=== PATIENT | male | born 1950 | race Two or more races ===

== ENCOUNTER 2016-04-14 13:12 | Inpatient (IN) | payer MEDICARE, MEDICAID ==
[~2016-04-14] VITALS: Ht 162.6 cm; Wt 65.8 kg
[2016-04-14] MEDS ORDERED: Albuterol ud Inhalation HHN ONE (13:30)
[2016-04-14] MEDS ORDERED: Ipratropium 0.02% Inh Soln 2.5ml UD HHN ONE (13:30)
[2016-04-14] MEDS ORDERED: Piperacillin/Tazobactam 4.5 GM in NS 110 ML IV ONE (13:30)
[2016-04-14] MEDS ORDERED: Vancomycin 1 GM in NS 275 ML IV ONE (13:30)
[2016-04-14] MEDS ORDERED: Vancomycin 1gm inj IVPB ONE (14:28)
[2016-04-14] MEDS ORDERED: Tubing IV Cassette IV ONE (14:29)
[2016-04-14] MEDS ORDERED: NS 110 ML ONE (14:29)
[2016-04-14] MEDS ORDERED: Zosyn 4.5gm inj ONE (14:29)
[2016-04-14] MEDS ORDERED: NS 275 ML ONE (14:29)
[2016-04-14 14:36] LABS: APPEARANCE,URINE CLEAR; KETONES,URINE NEGATIVE (NEGATIVE); LEUKOCYTE ESTERASE ,URINE 1+ (NEGATIVE); NITRITE,URINE NEGATIVE (NEGATIVE); PH,URINE 5 (4.5-8.0); PROTEIN,URINE 2+ (NEGATIVE); UROBILINOGEN,URINE NORMAL MG/DL (0.0-1.0)
[2016-04-14 14:40] LABS: SQUAMOUS EPITHELIAL CELL,UR FEW /LPF (NONE/OCC); WBC,URINE 0-2 /HPF (0 - 0)
[2016-04-14 14:42] LABS: INR 1.1 (0.9-1.1); MEAN CORPUSCULAR HEMOGLOBIN 30.9 PG (27.0-31.0); MEAN CORPUSCULAR VOLUME 100 FL (80-99); MEAN PLATELET VOLUME 10.1 FL (6.5-10.1); PLATELET COUNT 239 K/UL (150-450); PROTHROMBIN TIME 10.8 SEC (9.30-11.50); RED BLOOD COUNT 5.14 M/UL (4.70-6.10); RED CELL DISTRIBUTION WIDTH 14.7 % (11.6-14.8); WHITE BLOOD COUNT 18.5 K/UL (4.8-10.8)
[2016-04-14 14:46] LABS: TROPONIN I < 0.30 ng/mL (<=0.30)
[2016-04-14 14:49] LABS: ALANINE AMINOTRANSFERASE 50 U/L (3-41); ALBUMIN/GLOBULIN RATIO 0.7 (1.0-2.7); ASPARTATE AMINO TRANSFERASE 33 U/L (5-40); CALCIUM 9.9 mg/dL (8.6-10.2); CARBON DIOXIDE 25 mEQ/L (20-30); CHLORIDE 118 mEQ/L (98-107); CREATININE 1.7 mg/dL (0.7-1.2); GLOMERULAR FILTRATION RATE 40.7 mL/min (>60); HEMOLYSIS 20; POTASSIUM 3.9 mEQ/L (3.4-4.9)
[2016-04-14 14:50] LABS: REFLEX LACTIC ACID YES OR NO YES
[2016-04-14 15:05] LABS: ANION GAP 17 (5-15); SODIUM 160 mEQ/L (135-145)
[2016-04-14] MEDS ORDERED: ASPIRIN81 MG GT (15:14)
[2016-04-14] MEDS ORDERED: MULTIVITAMINS1 EAC2 GT (15:14)
[2016-04-14] MEDS ORDERED: MAGNESIUM OXID400 M1 GT (15:14)
[2016-04-14] MEDS ORDERED: ARICEPT10 MG GT (15:14)
[2016-04-14] MEDS ORDERED: PANTOPRAZOLE SO40 MG GT (15:14)
[2016-04-14] MEDS ORDERED: Cefepime HCl 1 GM in D5W 55 ML IVPB ONE (15:15)
--- NOTE | 2016-04-14 15:21 | Emergency Room Report ---
History of Present Illness General Chief Complaint: Altered Level of Consciousness Source: Medical Record, EMS Present Illness HPI The patient is sent in for altered level of consciousness increased blood glucose and decreased oxygen saturation. EMS transported patient with O2 sat 91% and glucose "high". He is in a nursing home facility. S/P CVA DM HTN No further history is available. Allergies: Coded Allergies: No Known Allergies (Unverified , 04/14/16) Patient History Limited by: medical condition Past Medical History: see triage record Social History Narrative SNF Reviewed Nursing Documentation: PMH: Agreed, PSxH: Agreed Nursing Documentation-PMH Past Medical History: No History, Except For Hx Cardiac Problems: Yes Hx Hypertension: Yes Hx Diabetes: Yes Hx Gastrointestinal Problems: Yes - gtube Hx Cerebrovascular Accident: Yes Review of Systems All Other Systems: limited Physical Exam Vital Signs Date Time Temp Pulse Resp B/P Pulse Ox O2 Delivery O2 Flow Rate FiO2 04/14/16 13:14 97.7 137 40 141/97 94 Room Air 04/14/16 14:00 2.0 Sp02 EP Interpretation: reviewed, abnormal - low as interpreted by me (on O2) General Appearance: Chronically Ill, Stupor - eyes open Head: normocephalic, atraumatic, other - facial assymmetry - R weakness Eyes: bilateral eye PERRL ENT: dry mucus membranes Neck: no meningismus Respiratory: rhonchi - R Cardiovascular #1: no murmur, tachycardia Cardiovascular #2: 2+ radial (R) Gastrointestinal: non tender, non-distended, abnormal bowel sounds - decreased , other - G tube Neurologic: responsive, sensory intact, no Babinski, aphasia - but later nods "yes and no" on occasion, motor weakness Psychiatric: depressed affect - lethargic Skin: other - plethoric Procedures Critical Care Time Critical Care Time Total time: 30 min bedside evaluation and treatment excludes procedures (EKG). Reason for critical care: hyperglycemia, sepsis, hypernatremia Possible complications: hypotension, hypertension, AR, shock, arrhythmias, metabolic acidosis, end organ damage, respiratory failure. Interventions: insulin, fluid bolus, antibiotics, electrolyte assessment and treatment Course: Pt presented with critical high glucose and decreased O2 sats. Immediate fluid resuscitation begun. Breathing treatments also given. Labs with hyperglycemia and critical hypernatremia. Fluids adjusted. Insulin given. Reassessed and more responsive. Glucose still high but improving. Antibiotics broadened. Admitted [facility]. Consultations: nursing staff, EMS Performed by: Dr. Dorman Tolerated well condition = serious Medical Decision Making Diagnostic Impression: Primary Impression: Sepsis Qualified Codes: A41.9 - Sepsis, unspecified organism Additional Impressions: Hyperglycemia Acute hypernatremia Pneumonia Qualified Codes: J18.9 - Pneumonia, unspecified organism Hyperosmolar coma Renal insufficiency Aphasia, post-stroke ER Course Patient presents with critical high glucose, AMS and low O2 sat. Ddx: sepsis, pneumonia, AMI, dehydration, DKA, hyperosmolar coma amongst others. Emergent evaluation undertaken with labs, EKG, CXR, UA. Treatment with albuterol and fluids initiated. Await lytes to determine if DKA. Patient appears dry. CXR = RML infiltrate. Antibiotics begun. Not acidotic. Insulin given. Sodium critically high (particularly in face of high glucose). 1/2 NS begun in addition to NS. Patient improving mentation. Repeat accucheck still "high". Repeat accucheck 400s. Patient admitted to [facility] Dr. Salter. Laboratory Tests Test 04/14/16 13:40 04/14/16 17:40 White Blood Count 18.5 K/UL (4.8-10.8) H Red Blood Count 5.14 M/UL (4.70-6.10) Hemoglobin 15.9 G/DL (14.2-18.0) Hematocrit 51.3 % (42.0-52.0) Mean Corpuscular Volume 100 FL (80-99) H Mean Corpuscular Hemoglobin 30.9 PG (27.0-31.0) Mean Corpuscular Hemoglobin Concent 31.0 G/DL (32.0-36.0) L Red Cell Distribution Width 14.7 % (11.6-14.8) Platelet Count 239 K/UL (150-450) Mean Platelet Volume 10.1 FL (6.5-10.1) Neutrophils (%) (Auto) % (45.0-75.0) Lymphocytes (%) (Auto) % (20.0-45.0) Monocytes (%) (Auto) % (1.0-10.0) Eosinophils (%) (Auto) % (0.0-3.0) Basophils (%) (Auto) % (0.0-2.0) Differential Total Cells Counted 100 Neutrophils % (Manual) 75 % (45-75) Lymphocytes % (Manual) 13 % (20-45) L Monocytes % (Manual) 6 % (1-10) Eosinophils % (Manual) 0 % (0-3) Basophils % (Manual) 0 % (0-2) Band Neutrophils 6 % (0-8) Platelet Estimate Adequate Platelet Morphology Giant Platelets Occasional Polychromasia 1+ Anisocytosis 1+ Macrocytosis 1+ Prothrombin Time 10.8 SEC (9.30-11.50) Prothrombin Time INR 1.1 (0.9-1.1) PTT 21 SEC (23-33) L Urine Color Pale yellow Urine Appearance Clear Urine pH 5 (4.5-8.0) Urine Specific [place] 1.015 (1.005-1.035) Urine Protein 2+ (NEGATIVE) H Urine Glucose (UA) 4+ (NEGATIVE) H Urine Ketones Negative (NEGATIVE) Urine Occult Blood 4+ (NEGATIVE) H Urine Nitrite Negative (NEGATIVE) Urine Bilirubin Negative (NEGATIVE) Urine Urobilinogen Normal MG/DL (0.0-1.0) Urine Leukocyte Esterase 1+ (NEGATIVE) H Urine RBC 5-10 /HPF (0 - 0) H Urine WBC 0-2 /HPF (0 - 0) Urine Squamous Epithelial Cells Few /LPF (NONE/OCC) Urine Bacteria None /HPF (NONE) Sodium Level 160 mEQ/L (135-145) H 168 mEQ/L (135-145) *H Potassium Level 3.9 mEQ/L (3.4-4.9) 3.4 mEQ/L (3.4-4.9) Chloride Level 118 mEQ/L (98-107) H 128 mEQ/L (98-107) H Carbon Dioxide Level 25 mEQ/L (20-30) 23 mEQ/L (20-30) Anion Gap 17 (5-15) H 17 (5-15) H Blood Urea Nitrogen 50 mg/dL (7-23) H 41 mg/dL (7-23) H Creatinine 1.7 mg/dL (0.7-1.2) H 1.5 mg/dL (0.7-1.2) H Estimate Glomerular Filtration Rate 40.7 mL/min (>60) 47.0 mL/min (>60) Glucose Level > 745 mg/dL (74-106) *H 454 mg/dL (74-106) #H Lactic Acid Level 3.00 mmol/L (0.66-2.22) H 4.70 mmol/L (0.66-2.22) H Calcium Level 9.9 mg/dL (8.6-10.2) 8.5 mg/dL (8.6-10.2) L Total Bilirubin 0.4 mg/dL (0.0-1.2) 0.3 mg/dL (0.0-1.2) Aspartate Amino Transferase (AST) 33 U/L (5-40) 21 U/L (5-40) Alanine Aminotransferase (ALT) 50 U/L (3-41) H 40 U/L (3-41) Alkaline Phosphatase 190 U/L (40-129) H 144 U/L (40-129) H Total Creatine Kinase 79 U/L (38-174) Troponin I < 0.30 ng/mL (<=0.30) Pro-B-Type Natriuretic Peptide 65 pg/mL (0-125) Total Protein 9.0 g/dL (6.6-8.7) H 7.3 g/dL (6.6-8.7) Albumin 3.8 g/dL (3.5-5.2) 3.1 g/dL (3.5-5.2) L Globulin 5.2 g/dL 4.2 g/dL Albumin/Globulin Ratio 0.7 (1.0-2.7) L 0.7 (1.0-2.7) L Microbiology Date/Time Source Procedure Growth Status 04/14/16 13:40 Nasal Nares Influenza Types A,B Antigen (NILS) - Final Complete EKG Diagnostic Results Rate: tachycardiac ST Segments: no acute changes Rhythm Strip Diag. Results Rhythm: no PVC's, no ectopy, other - ST Chest X-Ray Diagnostic Results EP Interpretation: Yes Findings: no effusion, no pneumothorax, other - RML infiltrate Number of Views: 1 Last Vital Signs Date Time Temp Pulse Resp B/P Pulse Ox O2 Delivery O2 Flow Rate FiO2 04/14/16 22:04 99.6 115 26 123/69 96 Nasal Cannula 2.0 Status: improved Disposition: ADMITTED INPATIENT Condition: Critical Referrals: NON PHYSICIAN (PCP) Rigo Dorman M.D. Apr 14, 2016 15:21
[2016-04-14 15:50] LABS: ANISOCYTOSIS 1+; BAND NEUTROPHILS % (MANUAL) 6 % (0-8); BASOPHILS % (MANUAL) 0 % (0-2); EOSINOPHILS % (MANUAL) 0 % (0-3); LYMPHOCYTES % (MANUAL) 13 % (20-45); MACROCYTES 1+; NEUTROPHILS % (MANUAL) 75 % (45-75); PLATELET ESTIMATE ADEQUATE; POLYCHROMASIA 1+; TOTAL CELLS COUNTED 100
[2016-04-14] MEDS ORDERED: Vancomycin 1 GM in D5W 275 ML IVPB ONE (16:00)
[2016-04-14] MEDS ORDERED: metroNIDAZOLE 500mg 100 ML IVPB ONE (16:00)
[2016-04-14 16:24] VITALS: BP 122/84
[2016-04-14] MEDS ORDERED: Acetaminophen 650mg/20.3ml GT ONE (17:30)
[2016-04-14] MEDS ORDERED: Cefepime 1gm vial ONE (17:36)
[2016-04-14 18:23] VITALS: BP 112/71
[2016-04-14 18:28] LABS: ALBUMIN/GLOBULIN RATIO 0.7 (1.0-2.7); CALCIUM 8.5 mg/dL (8.6-10.2); CREATININE 1.5 mg/dL (0.7-1.2); POTASSIUM 3.4 mEQ/L (3.4-4.9); TOTAL PROTEIN 7.3 g/dL (6.6-8.7)
[2016-04-14] MEDS ORDERED: Miralax 17gm pkt ORAL PRN (18:30)
[2016-04-14] MEDS ORDERED: Ketorolac 30mg Inj IV PRN (18:30)
[2016-04-14] MEDS ORDERED: Mylanta II UD 30ml ORAL PRN (18:30)
[2016-04-14] MEDS ORDERED: Nitroglycerin Subl 0.4mg tab (Bottle Of 25) SL PRN (18:30)
[2016-04-14] MEDS ORDERED: Morphine Sulfate 2mg/ml Inj IVP PRN (18:30)
[2016-04-14] MEDS ORDERED: DuoNeb 0.5-3(2.5)mg/3ml neb HHN PRN (18:30)
[2016-04-14 19:48] VITALS: BP 104/69
[2016-04-14 22:04] VITALS: BP 123/69
[2016-04-14 23:20] VITALS: BP 115/75
[2016-04-15] VITALS (9 sets, daily range): BP systolic 105–139; BP diastolic 65–83
[2016-04-15] MEDS: NovoLOG Insulin Flexpen SUBQ SCH ×5 (02:02→21:59)
[2016-04-15] MEDS: Heparin 5000 units/ml inj SUBQ SCH ×3 (02:46→21:57)
[2016-04-15] MEDS: Piperacillin/Tazobactam 3.375 GM in NS 110 ML IVPB SCH ×3 (02:53→19:23)
[2016-04-15] MEDS ORDERED: NS 110 ML ONE (02:55)
[2016-04-15] MEDS ORDERED: Zosyn 3.375gm inj ONE (02:55)
[2016-04-15] MEDS ORDERED: Tubing IV Cassette IV ONE ×2 (02:55→04:55)
[2016-04-15 06:11] LABS: MEAN CORPUSCULAR HEMOGLOBIN 30.6 PG (27.0-31.0); MEAN CORPUSCULAR HGB CONC 31.4 G/DL (32.0-36.0); MEAN CORPUSCULAR VOLUME 98 FL (80-99); MEAN PLATELET VOLUME 11.1 FL (6.5-10.1); PLATELET COUNT 150 K/UL (150-450); RED BLOOD COUNT 3.67 M/UL (4.70-6.10); RED CELL DISTRIBUTION WIDTH 15.1 % (11.6-14.8); WHITE BLOOD COUNT 18.9 K/UL (4.8-10.8)
[2016-04-15 06:30] LABS: HEMOGLOBIN A1C 9.1 % (< 6.0)
[2016-04-15 06:34] LABS: ALBUMIN/GLOBULIN RATIO 0.7 (1.0-2.7); CALCIUM 7.8 mg/dL (8.6-10.2); CREATININE 1.3 mg/dL (0.7-1.2); GLOMERULAR FILTRATION RATE 55.4 mL/min (>60); POTASSIUM 3.3 mEQ/L (3.4-4.9); TOTAL PROTEIN 6.4 g/dL (6.6-8.7)
[2016-04-15 06:44] LABS: THYROID STIMULATING HORMONE 0.83 uIU/mL (0.300-4.500)
[2016-04-15 08:33] LABS: ANISOCYTOSIS 1+; BAND NEUTROPHILS % (MANUAL) 3 % (0-8); BASOPHILS % (MANUAL) 0 % (0-2); EOSINOPHILS % (MANUAL) 0 % (0-3); HYPOCHROMASIA 1+; LYMPHOCYTES % (MANUAL) 13 % (20-45); NEUTROPHILS % (MANUAL) 77 % (45-75); PLATELET ESTIMATE ADEQUATE; PLATELET MORPHOLOGY NORMAL; TOTAL CELLS COUNTED 100
--- NOTE | 2016-04-15 08:54 | History and Physical ---
History of Present Illness General Date patient seen: Apr 15, 2016 Reason for Hospitalization: Altered Level of Consciousness Present Illness HPI 65 year old male with hx of CVA, DM, HTN sent in from his [facility] for altered level of consciousness, increased blood glucose and decreased oxygen saturation and fevers EMS transported patient with O2 sat 91% and glucose "high". Patient seems obtunded, its unclear how his baseline is. He is admitted to [facility] for sepsis and uncontrolled DM and possibly hyperosmolar coma. Allergies: Coded Allergies: No Known Allergies (Unverified , 04/14/16) Medication History Scheduled Aspirin* (Aspirin*), 81 MG GT DAILY, (Reported) Donepezil Hcl* (Aricept*), 10 MG GT DAILY, (Reported) Magnesium Oxide (Magnesium Oxide), 400 MG GT DAILY, (Reported) Multivitamins* (Multivitamins*), 1 TAB GT DAILY, (Reported) Pantoprazole* (Pantoprazole*), 40 MG GT DAILY, (Reported) Patient History Healthcare decision maker Resuscitation status Advanced Directive on File Past Medical/Surgical History Past Medical/Surgical History: (1) G-tube site cellulitis (2) Aphasia, post-stroke (3) Pneumonia Social History Social History: (1) [facility] resident Physical Exam General Appearance: WD/WN Lines, tubes and drains: peripheral, central line HEENT: normocephalic, atraumatic Neck: non-tender, normal alignment Respiratory/Chest: chest wall non-tender, normal breath sounds Breasts: no masses Cardiovascular/Chest: normal peripheral pulses Abdomen: normal bowel sounds, non tender Genitourinary/Rectal: normal genital exam, normal rectal exam Skin Exam: normal pigmentation 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 Last 24 Hour Vital Signs Date Time Temp Pulse Resp B/P Pulse Ox O2 Delivery O2 Flow Rate FiO2 04/15/16 08:00 99.1 109 26 108/76 97 Nasal Cannula 4.0 04/15/16 07:13 102.7 116 25 105/65 94 Nasal Cannula 4.0 04/15/16 05:52 102.7 04/15/16 05:44 102.7 116 25 105/65 94 Nasal Cannula 4.0 04/15/16 04:36 102.4 116 25 128/72 94 Nasal Cannula 4.0 04/15/16 03:07 101.4 114 25 125/83 94 Nasal Cannula 4.0 04/15/16 01:53 99.6 108 18 122/71 95 Nasal Cannula 4.0 04/15/16 00:40 101.5 112 27 114/72 95 Nasal Cannula 3.0 04/14/16 23:20 101.4 112 26 115/75 95 Nasal Cannula 3.0 04/14/16 22:04 99.6 115 26 123/69 96 Nasal Cannula 2.0 04/14/16 19:48 99.6 115 25 104/69 96 Nasal Cannula 2.0 04/14/16 18:23 100.0 119 26 112/71 97 Nasal Cannula 2.0 04/14/16 17:54 100.4 04/14/16 16:24 100.4 127 28 122/84 98 Nasal Cannula 2.0 04/14/16 14:00 100.7 119 20 100 Nasal Cannula 2.0 04/14/16 13:14 97.7 137 40 141/97 94 Room Air Intake and Output 04/14/16 04/15/16 19:00 07:00 Intake Total 0 ml 1110 ml Output Total 645 ml 1515 ml Balance -645 ml -405 ml Intake Oral 0 ml IV Total 1110 ml Output Urine Total 645 ml 1515 ml # Bowel Movements 1 Laboratory Tests Test 04/14/16 13:40 04/14/16 17:40 04/15/16 05:40 White Blood Count 18.5 K/UL (4.8-10.8) H 18.9 K/UL (4.8-10.8) H Red Blood Count 5.14 M/UL (4.70-6.10) 3.67 M/UL (4.70-6.10) L Hemoglobin 15.9 G/DL (14.2-18.0) 11.3 G/DL (14.2-18.0) L Hematocrit 51.3 % (42.0-52.0) 35.9 % (42.0-52.0) #L Mean Corpuscular Volume 100 FL (80-99) H 98 FL (80-99) Mean Corpuscular Hemoglobin 30.9 PG (27.0-31.0) 30.6 PG (27.0-31.0) Mean Corpuscular Hemoglobin Concent 31.0 G/DL (32.0-36.0) L 31.4 G/DL (32.0-36.0) L Red Cell Distribution Width 14.7 % (11.6-14.8) 15.1 % (11.6-14.8) H Platelet Count 239 K/UL (150-450) 150 K/UL (150-450) Mean Platelet Volume 10.1 FL (6.5-10.1) 11.1 FL (6.5-10.1) H Neutrophils (%) (Auto) % (45.0-75.0) % (45.0-75.0) Lymphocytes (%) (Auto) % (20.0-45.0) % (20.0-45.0) Monocytes (%) (Auto) % (1.0-10.0) % (1.0-10.0) Eosinophils (%) (Auto) % (0.0-3.0) % (0.0-3.0) Basophils (%) (Auto) % (0.0-2.0) % (0.0-2.0) Differential Total Cells Counted 100 100 Neutrophils % (Manual) 75 % (45-75) 77 % (45-75) H Lymphocytes % (Manual) 13 % (20-45) L 13 % (20-45) L Monocytes % (Manual) 6 % (1-10) 7 % (1-10) Eosinophils % (Manual) 0 % (0-3) 0 % (0-3) Basophils % (Manual) 0 % (0-2) 0 % (0-2) Band Neutrophils 6 % (0-8) 3 % (0-8) Platelet Estimate Adequate Adequate Platelet Morphology Normal Giant Platelets Occasional Polychromasia 1+ Anisocytosis 1+ 1+ Macrocytosis 1+ Prothrombin Time 10.8 SEC (9.30-11.50) Prothromb Time International Ratio 1.1 (0.9-1.1) Activated Partial Thromboplast Time 21 SEC (23-33) L Urine Color Pale yellow Urine Appearance Clear Urine pH 5 (4.5-8.0) Urine Specific [place] 1.015 (1.005-1.035) Urine Protein 2+ (NEGATIVE) H Urine Glucose (UA) 4+ (NEGATIVE) H Urine Ketones Negative (NEGATIVE) Urine Occult Blood 4+ (NEGATIVE) H Urine Nitrite Negative (NEGATIVE) Urine Bilirubin Negative (NEGATIVE) Urine Urobilinogen Normal MG/DL (0.0-1.0) Urine Leukocyte Esterase 1+ (NEGATIVE) H Urine RBC 5-10 /HPF (0 - 0) H Urine WBC 0-2 /HPF (0 - 0) Urine Squamous Epithelial Cells Few /LPF (NONE/OCC) Urine Bacteria None /HPF (NONE) Sodium Level 160 mEQ/L (135-145) H 168 mEQ/L (135-145) *H 168 mEQ/L (135-145) *H Potassium Level 3.9 mEQ/L (3.4-4.9) 3.4 mEQ/L (3.4-4.9) 3.3 mEQ/L (3.4-4.9) L Chloride Level 118 mEQ/L (98-107) H 128 mEQ/L (98-107) H 131 mEQ/L (98-107) H Carbon Dioxide Level 25 mEQ/L (20-30) 23 mEQ/L (20-30) 23 mEQ/L (20-30) Anion Gap 17 (5-15) H 17 (5-15) H 14 (5-15) Blood Urea Nitrogen 50 mg/dL (7-23) H 41 mg/dL (7-23) H 26 mg/dL (7-23) H Creatinine 1.7 mg/dL (0.7-1.2) H 1.5 mg/dL (0.7-1.2) H 1.3 mg/dL (0.7-1.2) H Estimat Glomerular Filtration Rate 40.7 mL/min (>60) 47.0 mL/min (>60) 55.4 mL/min (>60) Glucose Level > 745 mg/dL (74-106) *H 454 mg/dL (74-106) #H 360 mg/dL (74-106) H Lactic Acid Level 3.00 mmol/L (0.66-2.22) H 4.70 mmol/L (0.66-2.22) H Calcium Level 9.9 mg/dL (8.6-10.2) 8.5 mg/dL (8.6-10.2) L 7.8 mg/dL (8.6-10.2) L Total Bilirubin 0.4 mg/dL (0.0-1.2) 0.3 mg/dL (0.0-1.2) 0.6 mg/dL (0.0-1.2) Aspartate Amino Transf (AST/SGOT) 33 U/L (5-40) 21 U/L (5-40) 17 U/L (5-40) Alanine Aminotransferase (ALT/SGPT) 50 U/L (3-41) H 40 U/L (3-41) 29 U/L (3-41) Alkaline Phosphatase 190 U/L (40-129) H 144 U/L (40-129) H 103 U/L (40-129) Total Creatine Kinase 79 U/L (38-174) Troponin I < 0.30 ng/mL (<=0.30) Pro-B-Type Natriuretic Peptide 65 pg/mL (0-125) Total Protein 9.0 g/dL (6.6-8.7) H 7.3 g/dL (6.6-8.7) 6.4 g/dL (6.6-8.7) L Albumin 3.8 g/dL (3.5-5.2) 3.1 g/dL (3.5-5.2) L 2.8 g/dL (3.5-5.2) L Globulin 5.2 g/dL 4.2 g/dL 3.6 g/dL Albumin/Globulin Ratio 0.7 (1.0-2.7) L 0.7 (1.0-2.7) L 0.7 (1.0-2.7) L Hypochromasia 1+ Hemoglobin A1c 9.1 % (< 6.0) H Triglycerides Level 323 mg/dL (< 150) H Cholesterol Level 150 mg/dL (< 200) LDL Cholesterol 60 mg/dL (60-99) HDL Cholesterol 25 mg/dL (> 60) Cholesterol/HDL Ratio 6.0 (3.3-4.4) H Thyroid Stimulating Hormone (TSH) 0.830 uIU/mL (0.300-4.500) Microbiology Date/Time Source Procedure Growth Status 04/14/16 13:40 Nasal Nares Influenza Types A,B Antigen (NILS) - Final Complete Height (Feet): 5 Height (Inches): 4.00 Weight (Pounds): 145 Medications Current Medications Medications (Trade) Dose Ordered Sig/Xochilt Route PRN Reason Start Time Stop Time Status Last Admin Dose Admin Acetaminophen (Tylenol) 650 mg Q4H PRN ORAL fever 04/14/16 18:30 05/14/16 18:29 04/15/16 04:53 Al Hydroxide/Mg Hydroxide (Mylanta II) 30 ml Q6H PRN ORAL dyspepsia 04/14/16 18:30 05/14/16 18:29 Albuterol/ Ipratropium (DuoNeb 0.5-3(2.5)mg/3ml) 3 ml Q4H PRN HHN Shortness of Breath 04/14/16 18:30 04/19/16 18:29 Clonidine HCl 0.1 mg 0.1 mg Q4H PRN ORAL sbp more than 160 04/14/16 18:30 05/14/16 18:29 Dextrose (Dextrose 50%) STAT PRN IV Hypoglycemia 04/15/16 07:15 05/15/16 07:14 Heparin Sodium (Porcine) (Heparin 5000 units/ml) 5,000 units EVERY 12 HOURS SUBQ 04/14/16 21:00 05/14/16 20:59 04/15/16 02:46 Insulin Aspart (NovoLOG) BEFORE MEALS AND HS SUBQ 04/14/16 21:00 05/14/16 20:59 04/15/16 02:02 Insulin Detemir (Levemir) 20 units Q12HR SUBQ 04/15/16 09:00 05/15/16 08:59 Ketorolac Tromethamine (Toradol 30mg) 15 mg Q6H PRN IV moderate pain 4-6 04/14/16 18:30 04/19/16 18:29 Morphine Sulfate (Morphine Sulfate) 2 mg Q4H PRN IVP severe pain 7-10 04/14/16 18:30 04/21/16 18:29 Nitroglycerin (Ntg) 0.4 mg Q5M X 3 DOSES PRN SL Prn Chest Pain 04/14/16 18:30 05/14/16 18:29 Ondansetron HCl (Zofran) 4 mg Q6H PRN IVP Nausea & Vomiting 04/14/16 18:30 05/14/16 18:29 Piperacillin Sod/ Tazobactam Sod/ Sodium Chloride (Zosyn/Sodium Chloride) 110 ml @ 27.5 mls/hr Q8H IVPB 04/15/16 03:00 04/22/16 02:59 04/15/16 02:53 Polyethylene Glycol (Miralax) 17 gm HSPRN PRN ORAL Constipation 04/14/16 18:30 05/14/16 18:29 Sodium Chloride (Sodium Chloride 1000ml bag) 1,000 ml @ 100 mls/hr Q10H IVLG 04/14/16 18:23 05/14/16 18:22 04/15/16 04:54 Temazepam (Restoril) 15 mg HSPRN PRN ORAL Insomnia 04/14/16 18:30 04/21/16 18:29 Vancomycin HCl 1 ea 1 ea DAILY PRN MISC Per rx protocol 04/14/16 18:30 05/14/16 18:29 Vancomycin HCl/ Dextrose (Vancomycin/D5W) 275 ml @ 183.708 mls/hr Q24H IVPB 04/15/16 16:00 04/20/16 15:59 Assessment/Plan Problem List: (1) Hyperosmolar coma ICD Codes: E11.01 - Type 2 diabetes mellitus with hyperosmolarity with coma SNOMED: 180583583, 71725630 (2) Sepsis ICD Codes: A41.9 - Sepsis, unspecified organism SNOMED: 04060757 Qualifiers: Qualified Codes: A41.9 - Sepsis, unspecified organism (3) Acute hypernatremia ICD Codes: E87.0 - Hyperosmolality and hypernatremia SNOMED: 2965266, 83198357 (4) Aphasia, post-stroke ICD Codes: I69.920 - Aphasia following unspecified cerebrovascular disease SNOMED: 463645772 (5) Pneumonia ICD Codes: J18.9 - Pneumonia, unspecified organism SNOMED: 410333309, 22941580 Qualifiers: Qualified Codes: J18.9 - Pneumonia, unspecified organism (6) Renal insufficiency ICD Codes: N28.9 - Disorder of kidney and ureter, unspecified SNOMED: 954626559 (7) [facility] resident ICD Codes: Z59.3 - Problems related to living in residential institution SNOMED: 504175834 (8) G-tube site cellulitis ICD Codes: K94.22 - Gastrostomy infection; L03.319 - Cellulitis of trunk, unspecified SNOMED: 951658620, 449287942 Assessment/Plan IV fluids gtube flush with tap water. accucheck q4 hours scott cultures Broad spectrum antibiotics check cultures dvt prophylaxis LUIGI JAMIL Apr 15, 2016 08:54
[2016-04-15] MEDS: Levemir Flexpen SUBQ SCH ×2 (09:14→21:00)
--- NOTE | 2016-04-15 10:13 | Diagnostic Imaging Report ---
Indication: COUGH, shortness of breath Technique: One view of the chest Comparison: none Findings: Band of atelectasis or scarring are seen in the left lung base. There is suboptimal inspiration with crowding of the vessels in the right perihilar region. Lungs and pleural spaces are otherwise clear. The heart size is normal. Aorta is elongated tortuous and calcified. There is degenerative thoracic spondylosis Impression: No acute process. Findings as noted
--- NOTE | 2016-04-15 11:37 | Consultation ---
DATE OF CONSULTATION: ENDOCRINOLOGY CONSULTATION CONSULTING PHYSICIAN: Byron Lowe M.D. REFERRING PHYSICIAN: Lindsay Salter M.D. REASON FOR CONSULTATION: Diabetes management. HISTORY OF PRESENT ILLNESS: It is important to note that history is obtained from the chart and medical records since the patient is not able to provide any meaningful history due to altered level of consciousness. The patient is a 65-year-old male, who resides in a alf facility, who was brought to the hospital with fever, altered level of consciousness and elevated glucose and decreased oxygen saturation. According to EMS, the patient oxygen saturation was 91% and glucose was high. The patient has history of CVA, diabetes and hypertension. On presentation, glucose actually was 454. Sodium was noted to be elevated. Lactic acid was also high at 3.0 with a white count of 18.9. PAST MEDICAL HISTORY: 1. CVA. 2. Diabetes. 3. Hypertension. PAST SURGICAL HISTORY: Unknown. SOCIAL HISTORY: He resides in a alf facility without any current smoking, alcohol or drug use. FAMILY HISTORY: Noncontributory. REVIEW OF SYSTEMS: Unobtainable. LABORATORY AND DIAGNOSTIC DATA: Laboratory values, WBC 18.9, hemoglobin 11, hematocrit 35, and platelets of 150,000. Sodium 168, potassium 3.3, chloride 131, bicarbonate 22, BUN 26, creatinine 1.3, anion gap 14, glucose 360. A1c 9.1 and TSH of 0.8. PHYSICAL EXAMINATION: GENERAL: The patient is confused. VITAL SIGNS: Blood pressure is 104/65, heart rate of 116, temperature of 103.7.0 degrees, respiratory of 25. HEENT: Pupils are equal and reactive to light. NECK: No JVD. No thyromegaly. LUNGS: Scattered rhonchi. ABDOMEN: Positive bowel sounds. EXTREMITIES: No clubbing, cyanosis, or edema. DIAGNOSES: 1. Diabetes, out of control with lactic acidosis. 2. Lactic acidosis. 3. Sepsis. 4. History of cerebrovascular accident. PLAN: 1. Continue sliding scale insulin. 2. Add Levemir 20 units b.i.d., first dose restarted this morning and further adjustment according to blood glucose values. 3. We will follow the patient during the hospital stay. Thank you, Dr. Salter, for request of this consultation. Byron Lowe M.D. DR: Nga JOB#: [id number] CC: JACIEL
--- NOTE | 2016-04-15 12:22 | Cardiology Report ---
APPROVED REPORT EKG Measurement Heart [id number] IN [id number] Sinus tachycardia Abnormal ECG
--- NOTE | 2016-04-15 16:08 | Wound Care Consultation ---
Wound Assessment Wound Assessment #1: Wound Present on Admission: Yes New Wound: No Status Change of Wound: No Wound Location Body Site Modif: mid Wound Location Body Site: sacral Wound Type: pressure ulcer Amy Test: Does not Amy Pressure Ulcer Stage: deep tissue injury Wound Thickness: Full Thickness Wound Length: 4.0 Wound Width: 4.5 Wound Depth: utd Percent of Wound Black/Brown: 100 Wound Drainage Amount: None Wound Drainage Odor: None/Absent Tissue Surrounding Wound: Erythemic Wound General Appearance: Asymptomatic Wound Assessment #2: Wound Number: #2 Wound Present on Admission: Yes New Wound: No Status Change of Wound: No Wound Location Body Site Modif: left Wound Location Body Site: trochanter Wound Type: scar Amy Test: Does not Amy Wound Thickness: Full Thickness Wound Drainage Amount: None Wound Drainage Odor: None/Absent Tissue Surrounding Wound: Intact Wound General Appearance: Asymptomatic Wound Comment #1 Sacral DTI brown in color #2 Left trochanter full thickness scar tissue Recommendation -Turn and reposition -Keep clean and dry -Low air loss overlay mattress -Offload both heels -Local wound care per protocol for DTI -Optimize nutrition -Assess and f/u accordingly for any changes LYLA ROBERTSON RN Apr 15, 2016 16:08
[2016-04-15] MEDS: Vancomycin 1gm in D5W 275ml IVPB SCH (16:59)
--- NOTE | 2016-04-15 21:07 | History and Physical Report ---
DATE OF ADMISSION: 04/14/2016 CONSULTANTS: Lindsay Salter M.D. CHIEF COMPLAINT: Sepsis and hyperglycemia. BRIEF HISTORY: This is a 65-year-old male from [facility] who presented with increased weakness and lethargy, diagnosed with sepsis and hyperglycemia, admitted to [facility] for further care. Currently lethargic in bed, O2 NC, does not talk much. REVIEW OF SYSTEMS: Unavailable. PAST MEDICAL HISTORY: Diabetes, renal insufficiency, and encephalopathy. PAST SURGICAL HISTORY: Gastrostomy tube. MEDICATIONS: Vancomycin, Levemir Zosyn, insulin aspart, DuoNeb, morphine sulfate, Zofran, Restoril, Mylanta, and nitroglycerin. ALLERGIES: Denies. SOCIAL HISTORY: No smoking, no alcohol, and no intravenous drugs. FAMILY HISTORY: Noncontributory. PHYSICAL EXAMINATION: GENERAL: Calm in bed, lethargic, nonverbal. VITAL SIGNS: Temperature is 98, pulse 107, respirations 25, and blood pressure 135/75. CARDIOVASCULAR: No murmur. LUNGS: Poor air exchange. ABDOMEN: Bowel sounds are positive. Nontender and nondistended. EXTREMITIES: No cyanosis, clubbing, or edema. NEUROLOGIC: The patient moves extremities slightly, but refused to follow directions. LABORATORY DATA: Lab exam shows White count 18, H and H 11/35, and platelets are 150,000, otherwise, CBC is normal. BMP shows sodium 168, potassium 3.3, chloride 131, BUN and creatinine 26/1.3, hypernatremia, glucose 360. INR 1.1. Urinalysis, 1+ leukocyte esterase. ASSESSMENT: 1. Urinary tract infection. 2. Sepsis. 3. Anemia. 4. Hypernatremia. 5. Hyperglycemia. 6. Diabetes. 7. Renal insufficiency. PLAN: 1. Continue premeds. 2. O2 and pulmonary treatment. 3. Antibiotics per Infectious Disease. 4. Blood pressure and blood sugar control. 5. Dietary followup . 6. OT/PT. 7. Dietary evaluation. 8. CBC and BMP in the morning. 9. Consultants to be called, Dr. Salter. Tyler Lopez D.O. DR: ALPHONSO JOB#: [id number] CC:
--- NOTE | 2016-04-15 22:42 | Consultation ---
Consult Note Consult Note ID Dic# [id number] NAINA GRIMES M.D. Apr 15, 2016 22:42
[2016-04-16 00:30] VITALS: BP 119/74
[2016-04-16] MEDS: Piperacillin/Tazobactam 3.375 GM in NS 110 ML IVPB SCH (03:01)
--- NOTE | 2016-04-16 03:37 | Consultation ---
DATE OF CONSULTATION: REQUESTING PHYSICIAN: Lindsay Salter M.D. CONSULTING PHYSICIAN: Rocco Perez M.D. REASON FOR CONSULTATION: Evaluation of the patient for fever, sepsis, and antibiotic management. HISTORY OF PRESENT ILLNESS: The patient is a 65-year-old male with multiple medical problems as listed below, who was admitted to this medical center due to altered level of consciousness and fever. The patient was admitted with impression of sepsis and the patient has been started on IV antibiotics. Infectious Disease consultation has been requested for further evaluation of the patient's antibiotic management. PAST MEDICAL HISTORY: 1. CVA. 2. Diabetes. 3. Hypertension. MEDICATIONS: Vancomycin and Zosyn. ALLERGIES: No known drug allergies. PHYSICAL EXAMINATION: VITAL SIGNS: Temperature 97.9 degrees, blood pressure 122/68, pulse 86, and respirations 18. HEENT: Mild pale conjunctivae. No icterus. NECK: No lymphadenopathy. CHEST: Coarse breathing sounds. HEART: S1 and S2. ABDOMEN: Soft. EXTREMITIES: No cyanosis at this time. NEUROLOGICAL: Awake and verbal. LABORATORY AND DIAGNOSTIC DATA: White blood cells 18.9, hemoglobin 11.3, and platelets 150,000. UA unremarkable. BUN 20 and creatinine 1.3. ALT and AST unremarkable. Alkaline phosphatase 103. is negative. Chest x-ray, no acute process. ASSESSMENT: The patient is a 65-year-old male with multiple medical problems, who was admitted to this medical center with fever. Source of his fever is not totally clear. However, in view of the patient's problem would benefit from broad-spectrum antibiotics further information from cultures. PLAN: 1. We will continue the patient on vancomycin and Zosyn. 2. Monitor CBC. 3. Monitor BNP. 4. Monitor cultures (blood and urine). 5. Monitor chest x-ray. 6. Based on the patient's clinical course and labs, we will do further recommendations. Thank you, Dr. Salter for allowing me to participate in the care of this patient. I will follow the patient with you during this hospitalization. Rocco Perez M.D. DR: Kalpana JOB#: [id number] CC:
[2016-04-16 04:30] VITALS: BP 126/75
[2016-04-16 05:17] LABS: BASOPHILS % (AUTO) 0.4 % (0.0-2.0); EOSINOPHILS % (AUTO) 1.4 % (0.0-3.0); LYMPHOCYTES % (AUTO) 14.7 % (20.0-45.0); MEAN CORPUSCULAR HEMOGLOBIN 31.7 PG (27.0-31.0); MEAN CORPUSCULAR HGB CONC 33.1 G/DL (32.0-36.0); MEAN CORPUSCULAR VOLUME 96 FL (80-99); MEAN PLATELET VOLUME 10.7 FL (6.5-10.1); MONOCYTES % (AUTO) 3.3 % (1.0-10.0); NEUTROPHILS % (AUTO) 80.1 % (45.0-75.0); PLATELET COUNT 128 K/UL (150-450); RED BLOOD COUNT 3.43 M/UL (4.70-6.10); RED CELL DISTRIBUTION WIDTH 14.9 % (11.6-14.8); WHITE BLOOD COUNT 17.8 K/UL (4.8-10.8)
[2016-04-16 05:36] LABS: INR 1.1 (0.9-1.1); PROTHROMBIN TIME 11.6 SEC (9.30-11.50)
[2016-04-16 05:53] LABS: ALANINE AMINOTRANSFERASE 21 U/L (3-41); ALBUMIN/GLOBULIN RATIO 0.6 (1.0-2.7); ANION GAP 12 (5-15); ASPARTATE AMINO TRANSFERASE 14 U/L (5-40); CALCIUM 7.9 mg/dL (8.6-10.2); CARBON DIOXIDE 24 mEQ/L (20-30); CHLORIDE 126 mEQ/L (98-107); GLOMERULAR FILTRATION RATE > 60 mL/min (>60); HEMOLYSIS 3; PHOSPHORUS 1.6 mg/dL (2.5-4.8); TOTAL PROTEIN 6.6 g/dL (6.6-8.7)
[2016-04-16 06:10] LABS: SODIUM 162 mEQ/L (135-145)
[2016-04-16] MEDS: NovoLOG Insulin Flexpen SUBQ SCH ×4 (06:38→22:02)
--- NOTE | 2016-04-16 07:15 | General Progress Note ---
Assessment/Plan Problem List: (1) Hyperglycemia ICD Codes: R73.9 - Hyperglycemia, unspecified SNOMED: 91077214 (2) Pneumonia ICD Codes: J18.9 - Pneumonia, unspecified organism SNOMED: 555314458, 18420610 Qualifiers: Qualified Codes: J18.9 - Pneumonia, unspecified organism (3) Renal insufficiency ICD Codes: N28.9 - Disorder of kidney and ureter, unspecified SNOMED: 843907981 (4) Acute hypernatremia ICD Codes: E87.0 - Hyperosmolality and hypernatremia SNOMED: 1674195, 53168771 Assessment/Plan glycemic control improving continue Levemir 20 units bid continue Novolog sliding scale Subjective Allergies: Coded Allergies: No Known Allergies (Unverified , 04/14/16) All Systems: reviewed and negative except above Subjective events noted - interval notes reviewed Objective Last 24 Hour Vital Signs Date Time Temp Pulse Resp B/P Pulse Ox O2 Delivery O2 Flow Rate FiO2 04/16/16 04:30 99.0 82 20 126/75 95 04/16/16 03:49 87 04/16/16 00:30 98.1 90 22 119/74 95 04/15/16 23:55 90 04/15/16 20:00 101 04/15/16 20:00 97.9 95 20 122/69 95 04/15/16 16:00 99.7 109 20 139/80 99 04/15/16 16:00 97 04/15/16 12:00 98.2 107 25 135/75 95 Nasal Cannula 4.0 04/15/16 12:00 107 04/15/16 08:00 109 04/15/16 08:00 99.1 109 26 108/76 97 Nasal Cannula 4.0 Intake and Output 04/15/16 04/16/16 19:00 07:00 Intake Total 835.0 ml 792.5 ml Output Total 500 ml 1500 ml Balance 335.0 ml -707.5 ml Free Water 450 ml 600 ml IV Total 385.0 ml 192.5 ml Output Urine Total 500 ml 1500 ml # Bowel Movements 3 1 Laboratory Tests 04/16/16 03:40: White Blood Count 17.8H, Red Blood Count 3.43L, Hemoglobin 10.9L, Hematocrit 32.8L, Mean Corpuscular Volume 96, Mean Corpuscular Hemoglobin 31.7H, Mean Corpuscular Hemoglobin Concent 33.1, Red Cell Distribution Width 14.9H, Platelet Count 128L, Mean Platelet Volume 10.7H, Neutrophils (%) (Auto) 80.1H, Lymphocytes (%) (Auto) 14.7L, Monocytes (%) (Auto) 3.3, Eosinophils (%) (Auto) 1.4, Basophils (%) (Auto) 0.4, Prothrombin Time 11.6H, Prothromb Time International Ratio 1.1, Activated Partial Thromboplast Time 28, Sodium Level 162*H, Potassium Level 3.0L, Chloride Level 126H, Carbon Dioxide Level 24, Anion Gap 12, Blood Urea Nitrogen 14, Creatinine 1.0, Estimat Glomerular Filtration Rate > 60, Glucose Level 206#H, Calcium Level 7.9L, Phosphorus Level 1.6L, Magnesium Level 2.0, Total Bilirubin 0.7, Aspartate Amino Transf (AST/SGOT ) 14, Alanine Aminotransferase (ALT/SGPT) 21, Alkaline Phosphatase 103, Total Protein 6.6, Albumin 2.6L, Globulin 4.0, Albumin/Globulin Ratio 0.6L Height (Feet): 5 Height (Inches): 4.00 Weight (Pounds): 145 General Appearance: no apparent distress Neck: normal alignment Cardiovascular: normal rate Respiratory/Chest: decreased breath sounds Abdomen: normal bowel sounds Objective Current Medications Medications (Trade) Dose Ordered Sig/Xochilt Route PRN Reason Start Time Stop Time Status Last Admin Dose Admin Acetaminophen (Tylenol) 650 mg Q4H PRN ORAL fever 04/14/16 18:30 05/14/16 18:29 04/15/16 04:53 Al Hydroxide/Mg Hydroxide (Mylanta II) 30 ml Q6H PRN ORAL dyspepsia 04/14/16 18:30 05/14/16 18:29 Albuterol/ Ipratropium (DuoNeb 0.5-3(2.5)mg/3ml) 3 ml Q4H PRN HHN Shortness of Breath 04/14/16 18:30 04/19/16 18:29 Clonidine HCl 0.1 mg 0.1 mg Q4H PRN ORAL sbp more than 160 04/14/16 18:30 05/14/16 18:29 Dextrose (Dextrose 50%) STAT PRN IV Hypoglycemia 04/15/16 07:15 05/15/16 07:14 Heparin Sodium (Porcine) (Heparin 5000 units/ml) 5,000 units EVERY 12 HOURS SUBQ 04/14/16 21:00 05/14/16 20:59 04/15/16 21:57 Insulin Aspart (NovoLOG) BEFORE MEALS AND HS SUBQ 04/14/16 21:00 05/14/16 20:59 04/16/16 06:38 Insulin Detemir (Levemir) 20 units Q12HR SUBQ 04/15/16 09:00 05/15/16 08:59 04/15/16 09:14 Morphine Sulfate (Morphine Sulfate) 2 mg Q4H PRN IVP severe pain 7-10 04/14/16 18:30 04/21/16 18:29 Nitroglycerin (Ntg) 0.4 mg Q5M X 3 DOSES PRN SL Prn Chest Pain 04/14/16 18:30 05/14/16 18:29 Ondansetron HCl (Zofran) 4 mg Q6H PRN IVP Nausea & Vomiting 04/14/16 18:30 05/14/16 18:29 Piperacillin Sod/ Tazobactam Sod/ Sodium Chloride (Zosyn/Sodium Chloride) 110 ml @ 27.5 mls/hr Q8H IVPB 04/15/16 03:00 04/22/16 02:59 04/16/16 03:01 Polyethylene Glycol (Miralax) 17 gm HSPRN PRN ORAL Constipation 04/14/16 18:30 05/14/16 18:29 Temazepam (Restoril) 15 mg HSPRN PRN ORAL Insomnia 04/14/16 18:30 04/21/16 18:29 Vancomycin HCl 1 ea 1 ea DAILY PRN MISC Per rx protocol 04/14/16 18:30 05/14/16 18:29 Vancomycin HCl/ Dextrose (Vancomycin/D5W) 275 ml @ 183.708 mls/hr Q24H IVPB 04/15/16 16:00 04/20/16 15:59 04/15/16 16:59 Item Value Date Time Bedside Blood Glucose 198 mg/dl H 04/16/16 0638 Bedside Blood Glucose 261 mg/dl H 04/15/16 2159 Bedside Blood Glucose 289 mg/dl H 04/15/16 1707 Bedside Blood Glucose 319 mg/dl H 04/15/16 1117 Bedside Blood Glucose 323 mg/dl H 04/15/16 0914 Bedside Blood Glucose 312 mg/dl H 04/15/16 0547 THEO ALFREDO Apr 16, 2016 07:15
[2016-04-16 08:00] VITALS: BP 111/66
[2016-04-16] MEDS: Heparin 5000 units/ml inj SUBQ SCH ×2 (08:57→22:04)
[2016-04-16] MEDS: Levemir Flexpen SUBQ SCH ×2 (08:59→21:00)
--- NOTE | 2016-04-16 10:59 | Pulmonology Progress Note ---
Assessment/Plan Problems: (1) Hyperosmolar coma (2) Sepsis (3) Acute hypernatremia (4) Aphasia, post-stroke (5) Pneumonia (6) Renal insufficiency (7) halfway resident (8) G-tube site cellulitis Assessment/Plan pts mental status improving continue tap water check cultures continue abx med/surg Subjective ROS Limited/Unobtainable: No Constitutional: Reports: no symptoms HEENT: Repors: no symptoms Respiratory: Reports: no symptoms Allergies: Coded Allergies: No Known Allergies (Unverified , 04/14/16) Objective Last 24 Hour Vital Signs Date Time Temp Pulse Resp B/P Pulse Ox O2 Delivery O2 Flow Rate FiO2 04/16/16 08:00 88 04/16/16 08:00 99.0 83 19 111/66 96 Nasal Cannula 3.5 04/16/16 07:37 86 18 Nasal Cannula 4.0 36 04/16/16 04:30 99.0 82 20 126/75 95 04/16/16 03:49 87 04/16/16 00:30 98.1 90 22 119/74 95 04/15/16 23:55 90 04/15/16 20:00 101 04/15/16 20:00 97.9 95 20 122/69 95 04/15/16 16:00 99.7 109 20 139/80 99 04/15/16 16:00 97 04/15/16 12:00 98.2 107 25 135/75 95 Nasal Cannula 4.0 04/15/16 12:00 107 Intake and Output 04/15/16 04/16/16 19:00 07:00 Intake Total 835.0 ml 820.0 ml Output Total 500 ml 1500 ml Balance 335.0 ml -680.0 ml Free Water 450 ml 600 ml IV Total 385.0 ml 220.0 ml Output Urine Total 500 ml 1500 ml # Bowel Movements 3 1 General Appearance: WD/WN HEENT: normocephalic, atraumatic Respiratory/Chest: chest wall non-tender, lungs clear Cardiovascular: normal peripheral pulses, normal rate Abdomen: normal bowel sounds, soft, non tender Extremities: no clubbing Skin: no lesions Microbiology Date/Time Source Procedure Growth Status 04/14/16 13:40 Blood Blood Culture - Preliminary NO GROWTH AFTER 24 HOURS Resulted 04/14/16 13:30 Blood Blood Culture - Preliminary NO GROWTH AFTER 24 HOURS Resulted 04/14/16 15:13 Nasal Nares MRSA Culture - Final NO METHICILLIN RESISTANT STAPH AUREUS... Complete 04/14/16 13:40 Nasal Nares Influenza Types A,B Antigen (NILS) - Final Complete 04/14/16 15:13 Rectum VRE Culture - Final Enterococcus Faecium - Vre Complete Laboratory Tests 04/16/16 03:40: White Blood Count 17.8H, Red Blood Count 3.43L, Hemoglobin 10.9L, Hematocrit 32.8L, Mean Corpuscular Volume 96, Mean Corpuscular Hemoglobin 31.7H, Mean Corpuscular Hemoglobin Concent 33.1, Red Cell Distribution Width 14.9H, Platelet Count 128L, Mean Platelet Volume 10.7H, Neutrophils (%) (Auto) 80.1H, Lymphocytes (%) (Auto) 14.7L, Monocytes (%) (Auto) 3.3, Eosinophils (%) (Auto) 1.4, Basophils (%) (Auto) 0.4, Prothrombin Time 11.6H, Prothromb Time International Ratio 1.1, Activated Partial Thromboplast Time 28, Sodium Level 162*H, Potassium Level 3.0L, Chloride Level 126H, Carbon Dioxide Level 24, Anion Gap 12, Blood Urea Nitrogen 14, Creatinine 1.0, Estimat Glomerular Filtration Rate > 60, Glucose Level 206#H, Calcium Level 7.9L, Phosphorus Level 1.6L, Magnesium Level 2.0, Total Bilirubin 0.7, Aspartate Amino Transf (AST/SGOT ) 14, Alanine Aminotransferase (ALT/SGPT) 21, Alkaline Phosphatase 103, Total Protein 6.6, Albumin 2.6L, Globulin 4.0, Albumin/Globulin Ratio 0.6L Current Medications Medications (Trade) Dose Ordered Sig/Xochilt Route PRN Reason Start Time Stop Time Status Last Admin Dose Admin Acetaminophen (Tylenol) 650 mg Q4H PRN ORAL fever 04/14/16 18:30 05/14/16 18:29 04/15/16 04:53 Al Hydroxide/Mg Hydroxide (Mylanta II) 30 ml Q6H PRN ORAL dyspepsia 04/14/16 18:30 05/14/16 18:29 Albuterol/ Ipratropium (DuoNeb 0.5-3(2.5)mg/3ml) 3 ml Q4H PRN HHN Shortness of Breath 04/14/16 18:30 04/19/16 18:29 Clonidine HCl 0.1 mg 0.1 mg Q4H PRN ORAL sbp more than 160 04/14/16 18:30 05/14/16 18:29 Dextrose (Dextrose 50%) STAT PRN IV Hypoglycemia 04/15/16 07:15 05/15/16 07:14 Heparin Sodium (Porcine) (Heparin 5000 units/ml) 5,000 units EVERY 12 HOURS SUBQ 04/14/16 21:00 05/14/16 20:59 04/15/16 21:57 Insulin Aspart (NovoLOG) BEFORE MEALS AND HS SUBQ 04/14/16 21:00 05/14/16 20:59 04/16/16 06:38 Insulin Detemir (Levemir) 20 units Q12HR SUBQ 04/15/16 09:00 05/15/16 08:59 04/16/16 08:59 Morphine Sulfate (Morphine Sulfate) 2 mg Q4H PRN IVP severe pain 7-10 04/14/16 18:30 04/21/16 18:29 Nitroglycerin (Ntg) 0.4 mg Q5M X 3 DOSES PRN SL Prn Chest Pain 04/14/16 18:30 05/14/16 18:29 Ondansetron HCl (Zofran) 4 mg Q6H PRN IVP Nausea & Vomiting 04/14/16 18:30 05/14/16 18:29 Piperacillin Sod/ Tazobactam Sod/ Sodium Chloride (Zosyn/Sodium Chloride) 110 ml @ 27.5 mls/hr Q8H IVPB 04/15/16 03:00 04/22/16 02:59 04/16/16 03:01 Polyethylene Glycol (Miralax) 17 gm HSPRN PRN ORAL Constipation 04/14/16 18:30 05/14/16 18:29 Temazepam (Restoril) 15 mg HSPRN PRN ORAL Insomnia 04/14/16 18:30 04/21/16 18:29 Vancomycin HCl 1 ea 1 ea DAILY PRN MISC Per rx protocol 04/14/16 18:30 05/14/16 18:29 Vancomycin HCl/ Dextrose (Vancomycin/D5W) 275 ml @ 183.708 mls/hr Q24H IVPB 04/15/16 16:00 04/20/16 15:59 04/15/16 16:59 LUIGI JAMIL Apr 16, 2016 10:59
--- NOTE | 2016-04-16 11:40 | Infectious Diseases Prog Note ---
Assessment/Plan Assessment/Plan A: The patient is a 65-year-old male with Fever improving Chest x-ray, no acute process. Sepsis SP ALOC CVA. Diabetes. Hypertension. P: Cont pt on vancomycin and Zosyn d# 3 Monitor CBC Monitor BNP. Monitor cultures (blood and urine) Monitor chest x-ray Subjective Allergies: Coded Allergies: No Known Allergies (Unverified , 04/14/16) Objective Vital Signs Last 24 Hour Vital Signs Date Time Temp Pulse Resp B/P Pulse Ox O2 Delivery O2 Flow Rate FiO2 04/16/16 08:00 88 04/16/16 08:00 99.0 83 19 111/66 96 Nasal Cannula 3.5 04/16/16 07:37 86 18 Nasal Cannula 4.0 36 04/16/16 04:30 99.0 82 20 126/75 95 04/16/16 03:49 87 04/16/16 00:30 98.1 90 22 119/74 95 04/15/16 23:55 90 04/15/16 20:00 101 04/15/16 20:00 97.9 95 20 122/69 95 04/15/16 16:00 99.7 109 20 139/80 99 04/15/16 16:00 97 04/15/16 12:00 98.2 107 25 135/75 95 Nasal Cannula 4.0 04/15/16 12:00 107 Height (Feet): 5 Height (Inches): 4.00 Weight (Pounds): 145 Microbiology Date/Time Source Procedure Growth Status 04/14/16 13:40 Blood Blood Culture - Preliminary NO GROWTH AFTER 24 HOURS Resulted 04/14/16 13:30 Blood Blood Culture - Preliminary NO GROWTH AFTER 24 HOURS Resulted 04/14/16 15:13 Nasal Nares MRSA Culture - Final NO METHICILLIN RESISTANT STAPH AUREUS... Complete 04/14/16 13:40 Nasal Nares Influenza Types A,B Antigen (NILS) - Final Complete 04/14/16 15:13 Rectum VRE Culture - Final Enterococcus Faecium - Vre Complete Laboratory Tests Test 04/16/16 03:40 White Blood Count 17.8 K/UL (4.8-10.8) H Red Blood Count 3.43 M/UL (4.70-6.10) L Hemoglobin 10.9 G/DL (14.2-18.0) L Hematocrit 32.8 % (42.0-52.0) L Mean Corpuscular Volume 96 FL (80-99) Mean Corpuscular Hemoglobin 31.7 PG (27.0-31.0) H Mean Corpuscular Hemoglobin Concent 33.1 G/DL (32.0-36.0) Red Cell Distribution Width 14.9 % (11.6-14.8) H Platelet Count 128 K/UL (150-450) L Mean Platelet Volume 10.7 FL (6.5-10.1) H Neutrophils (%) (Auto) 80.1 % (45.0-75.0) H Lymphocytes (%) (Auto) 14.7 % (20.0-45.0) L Monocytes (%) (Auto) 3.3 % (1.0-10.0) Eosinophils (%) (Auto) 1.4 % (0.0-3.0) Basophils (%) (Auto) 0.4 % (0.0-2.0) Prothrombin Time 11.6 SEC (9.30-11.50) H Prothromb Time International Ratio 1.1 (0.9-1.1) Activated Partial Thromboplast Time 28 SEC (23-33) Sodium Level 162 mEQ/L (135-145) *H Potassium Level 3.0 mEQ/L (3.4-4.9) L Chloride Level 126 mEQ/L (98-107) H Carbon Dioxide Level 24 mEQ/L (20-30) Anion Gap 12 (5-15) Blood Urea Nitrogen 14 mg/dL (7-23) Creatinine 1.0 mg/dL (0.7-1.2) Estimat Glomerular Filtration Rate > 60 mL/min (>60) Glucose Level 206 mg/dL (74-106) #H Calcium Level 7.9 mg/dL (8.6-10.2) L Phosphorus Level 1.6 mg/dL (2.5-4.8) L Magnesium Level 2.0 mg/dL (1.7-2.5) Total Bilirubin 0.7 mg/dL (0.0-1.2) Aspartate Amino Transf (AST/SGOT) 14 U/L (5-40) Alanine Aminotransferase (ALT/SGPT) 21 U/L (3-41) Alkaline Phosphatase 103 U/L (40-129) Total Protein 6.6 g/dL (6.6-8.7) Albumin 2.6 g/dL (3.5-5.2) L Globulin 4.0 g/dL Albumin/Globulin Ratio 0.6 (1.0-2.7) L Current Medications Medications (Trade) Dose Ordered Sig/Xochilt Route PRN Reason Start Time Stop Time Status Last Admin Dose Admin Acetaminophen (Tylenol) 650 mg Q4H PRN ORAL fever 04/14/16 18:30 05/14/16 18:29 04/15/16 04:53 Al Hydroxide/Mg Hydroxide (Mylanta II) 30 ml Q6H PRN ORAL dyspepsia 04/14/16 18:30 05/14/16 18:29 Albuterol/ Ipratropium (DuoNeb 0.5-3(2.5)mg/3ml) 3 ml Q4H PRN HHN Shortness of Breath 04/14/16 18:30 04/19/16 18:29 Clonidine HCl (Catapres) 0.1 mg Q4H PRN ORAL sbp more than 160 04/14/16 18:30 05/14/16 18:29 Dextrose STAT PRN IV Hypoglycemia 04/15/16 07:15 05/15/16 07:14 Heparin Sodium (Porcine) (Heparin 5000 units/ml) 5,000 units EVERY 12 HOURS SUBQ 04/14/16 21:00 05/14/16 20:59 04/15/16 21:57 Insulin Aspart (NovoLOG) BEFORE MEALS AND HS SUBQ 04/14/16 21:00 05/14/16 20:59 04/16/16 06:38 Insulin Detemir (Levemir) 20 units Q12HR SUBQ 04/15/16 09:00 05/15/16 08:59 04/16/16 08:59 Morphine Sulfate (Morphine Sulfate) 2 mg Q4H PRN IVP severe pain 7-10 04/14/16 18:30 04/21/16 18:29 Nitroglycerin (Ntg) 0.4 mg Q5M X 3 DOSES PRN SL Prn Chest Pain 04/14/16 18:30 05/14/16 18:29 Ondansetron HCl (Zofran) 4 mg Q6H PRN IVP Nausea & Vomiting 04/14/16 18:30 05/14/16 18:29 Piperacillin Sod/ Tazobactam Sod/ Dextrose (Zosyn/D5W) 110 ml @ 27.5 mls/hr Q8HR IVPB 04/16/16 14:00 04/23/16 13:59 Polyethylene Glycol (Miralax) 17 gm HSPRN PRN ORAL Constipation 04/14/16 18:30 05/14/16 18:29 Temazepam (Restoril) 15 mg HSPRN PRN ORAL Insomnia 04/14/16 18:30 04/21/16 18:29 Vancomycin HCl 1 ea 1 ea DAILY PRN MISC Per rx protocol 04/14/16 18:30 05/14/16 18:29 Vancomycin HCl/ Dextrose (Vancomycin/D5W) 275 ml @ 183.708 mls/hr Q24H IVPB 04/15/16 16:00 04/20/16 15:59 04/15/16 16:59 NAINA GRIMES M.D. Apr 16, 2016 11:40
[2016-04-16 12:00] VITALS: BP 114/69
[2016-04-16] MEDS ORDERED: KCl 10% 40mEq/30ml liquid NG ONE (12:00)
--- NOTE | 2016-04-16 12:27 | Diagnostic Imaging Report ---
Indication: DYSPNEA Technique: One view of the chest Comparison: One Findings: There is new or increased finding of consolidation at the right lung base. There is left basilar atelectasis. Pleural spaces are clear. Heart size is normal Impression: New or increased right basilar consolidation, consistent with pneumonia Left basilar atelectasis persists
[2016-04-16] MEDS: Piperacillin/Tazobactam 3.375 GM in D5W 110 ML IVPB SCH ×2 (13:16→22:00)
--- NOTE | 2016-04-16 14:06 | General Progress Note ---
Assessment/Plan Problem List: (1) Diabetes ICD Codes: E11.9 - Type 2 diabetes mellitus without complications SNOMED: 92311802 (2) Renal insufficiency ICD Codes: N28.9 - Disorder of kidney and ureter, unspecified SNOMED: 040137657 (3) Sepsis ICD Codes: A41.9 - Sepsis, unspecified organism SNOMED: 26717523 Qualifiers: Qualified Codes: A41.9 - Sepsis, unspecified organism (4) Hyperglycemia ICD Codes: R73.9 - Hyperglycemia, unspecified SNOMED: 27040816 Status: stable, progressing Assessment/Plan o2 pulm tx abx cbc bmp am Subjective Constitutional: Reports: weakness Allergies: Coded Allergies: No Known Allergies (Unverified , 04/14/16) All Systems: reviewed and negative except above Subjective o2nc sleepy Objective Last 24 Hour Vital Signs Date Time Temp Pulse Resp B/P Pulse Ox O2 Delivery O2 Flow Rate FiO2 04/16/16 12:00 98.8 91 19 114/69 95 Nasal Cannula 3.5 04/16/16 08:00 88 04/16/16 08:00 99.0 83 19 111/66 96 Nasal Cannula 3.5 04/16/16 07:37 86 18 Nasal Cannula 4.0 36 04/16/16 04:30 99.0 82 20 126/75 95 04/16/16 03:49 87 04/16/16 00:30 98.1 90 22 119/74 95 04/15/16 23:55 90 04/15/16 20:00 101 04/15/16 20:00 97.9 95 20 122/69 95 04/15/16 16:00 99.7 109 20 139/80 99 04/15/16 16:00 97 Intake and Output 04/15/16 04/16/16 19:00 07:00 Intake Total 835.0 ml 820.0 ml Output Total 500 ml 1500 ml Balance 335.0 ml -680.0 ml Free Water 450 ml 600 ml IV Total 385.0 ml 220.0 ml Output Urine Total 500 ml 1500 ml # Bowel Movements 3 1 Laboratory Tests 04/16/16 03:40: White Blood Count 17.8H, Red Blood Count 3.43L, Hemoglobin 10.9L, Hematocrit 32.8L, Mean Corpuscular Volume 96, Mean Corpuscular Hemoglobin 31.7H, Mean Corpuscular Hemoglobin Concent 33.1, Red Cell Distribution Width 14.9H, Platelet Count 128L, Mean Platelet Volume 10.7H, Neutrophils (%) (Auto) 80.1H, Lymphocytes (%) (Auto) 14.7L, Monocytes (%) (Auto) 3.3, Eosinophils (%) (Auto) 1.4, Basophils (%) (Auto) 0.4, Prothrombin Time 11.6H, Prothromb Time International Ratio 1.1, Activated Partial Thromboplast Time 28, Sodium Level 162*H, Potassium Level 3.0L, Chloride Level 126H, Carbon Dioxide Level 24, Anion Gap 12, Blood Urea Nitrogen 14, Creatinine 1.0, Estimat Glomerular Filtration Rate > 60, Glucose Level 206#H, Calcium Level 7.9L, Phosphorus Level 1.6L, Magnesium Level 2.0, Total Bilirubin 0.7, Aspartate Amino Transf (AST/SGOT ) 14, Alanine Aminotransferase (ALT/SGPT) 21, Alkaline Phosphatase 103, Total Protein 6.6, Albumin 2.6L, Globulin 4.0, Albumin/Globulin Ratio 0.6L Height (Feet): 5 Height (Inches): 4.00 Weight (Pounds): 145 General Appearance: lethargic EENT: normal ENT inspection Neck: normal alignment Cardiovascular: normal peripheral pulses, normal rate, regular rhythm Respiratory/Chest: chest wall non-tender, lungs clear, decreased breath sounds Abdomen: normal bowel sounds, non tender, soft Extremities: normal inspection Edema: no edema noted Arm (L), no edema noted Arm (R), no edema noted Leg (L), no edema noted Leg (R), no edema noted Pedal (L), no edema noted Pedal (R), no edema noted Generalized Neurologic: motor weakness Skin: normal pigmentation, warm/dry SARAH THOMAS Apr 16, 2016 14:06
[2016-04-16 16:00] VITALS: BP 108/71
[2016-04-16] MEDS: Vancomycin 1gm in D5W 275ml IVPB SCH (16:47)
--- NOTE | 2016-04-16 16:59 | Consultation ---
Consult Note Consult Note Asked to eval for renal failure and electrolyte abnormalities he patient is a 65-year-old male with multiple medical problems as listed below, who was admitted to this medical center due to altered level of consciousness and fever. The patient was admitted with impression of sepsis and the patient has been started on IV antibiotics. Infectious Disease consultation has been requested for further evaluation of the patient's antibiotic management. PAST MEDICAL HISTORY: 1. CVA. 2. Diabetes. 3. Hypertension. . Assessment/Plan status; (1) Hyperosmolar coma (2) Sepsis (3) Acute hypernatremia (4) Aphasia, post-stroke (5) Pneumonia (6) Renal insufficiency (7) alf resident (8) G-tube site cellulitis Plan; free water- Phos supplement- Monitor renal parameters- DEANA DOMINGUEZ Apr 16, 2016 16:59
[2016-04-16] MEDS ORDERED: Potassium Phosphate 30 MM in NS 275 ML IV ONE (18:30)
[2016-04-16 20:11] VITALS: BP 103/70
[2016-04-17] VITALS: BP 116/60
[2016-04-17] MEDS ORDERED: Vancomycin 500mg in D5W 110ml IVPB ONE ×2
[2016-04-17 04:00] VITALS: BP 120/65
[2016-04-17 05:02] LABS: BASOPHILS % (AUTO) 0.6 % (0.0-2.0); EOSINOPHILS % (AUTO) 3.5 % (0.0-3.0); LYMPHOCYTES % (AUTO) 20.9 % (20.0-45.0); MEAN CORPUSCULAR HEMOGLOBIN 32.7 PG (27.0-31.0); MEAN CORPUSCULAR HGB CONC 34.7 G/DL (32.0-36.0); MEAN CORPUSCULAR VOLUME 94 FL (80-99); MEAN PLATELET VOLUME 11.6 FL (6.5-10.1); MONOCYTES % (AUTO) 4.1 % (1.0-10.0); PLATELET COUNT 123 K/UL (150-450); RED CELL DISTRIBUTION WIDTH 14.2 % (11.6-14.8); WHITE BLOOD COUNT 10.9 K/UL (4.8-10.8)
[2016-04-17 05:20] LABS: PROTHROMBIN TIME 10.5 SEC (9.30-11.50)
[2016-04-17 05:34] LABS: ALANINE AMINOTRANSFERASE 18 U/L (3-41); ALBUMIN/GLOBULIN RATIO 0.6 (1.0-2.7); ANION GAP 13 (5-15); ASPARTATE AMINO TRANSFERASE 15 U/L (5-40); CALCIUM 7.6 mg/dL (8.6-10.2); CARBON DIOXIDE 24 mEQ/L (20-30); CHLORIDE 115 mEQ/L (98-107); CREATININE 0.7 mg/dL (0.7-1.2); GLOMERULAR FILTRATION RATE > 60 mL/min (>60); HEMOLYSIS 3; MAGNESIUM 1.8 mg/dL (1.7-2.5); PHOSPHORUS 2.3 mg/dL (2.5-4.8); POTASSIUM 3.3 mEQ/L (3.4-4.9); SODIUM 152 mEQ/L (135-145); TOTAL PROTEIN 6.6 g/dL (6.6-8.7)
[2016-04-17] MEDS: NovoLOG Insulin Flexpen SUBQ SCH ×4 (05:55→21:38)
[2016-04-17] MEDS ORDERED: Nitroglycerin Subl 0.4mg tab (Bottle Of 25) SL PRN (06:00)
[2016-04-17] MEDS ORDERED: Miralax 17gm pkt ORAL PRN (06:26)
[2016-04-17] MEDS ORDERED: Morphine Sulfate 2mg/ml Inj IVP PRN (06:30)
[2016-04-17] MEDS ORDERED: DuoNeb 0.5-3(2.5)mg/3ml neb HHN PRN (06:30)
[2016-04-17] MEDS: Piperacillin/Tazobactam 3.375 GM in D5W 110 ML IVPB SCH ×4 (06:46→22:17)
[2016-04-17 08:48] VITALS: BP 123/73
[2016-04-17] MEDS: Levemir Flexpen SUBQ SCH ×2 (09:00→21:37)
[2016-04-17] MEDS: Heparin 5000 units/ml inj SUBQ SCH ×2 (09:00→21:00)
--- NOTE | 2016-04-17 09:30 | Infectious Diseases Prog Note ---
Assessment/Plan Assessment/Plan A: The patient is a 65-year-old male with Fever improving Chest x-ray, no acute process. Sepsis / Leucocytosis improving SP ALOC CVA. Diabetes. Hypertension. P: Cont pt on vancomycin and Zosyn d# 4 Monitor CBC Monitor BNP. Monitor cultures (blood and urine) Monitor chest x-ray Subjective Constitutional: Denies: anorexia, chills, drenching sweats, fatigue, fever, no symptoms, other Allergies: Coded Allergies: No Known Allergies (Unverified , 04/14/16) Objective Vital Signs Last 24 Hour Vital Signs Date Time Temp Pulse Resp B/P Pulse Ox O2 Delivery O2 Flow Rate FiO2 04/17/16 08:48 97.2 84 20 123/73 100 Nasal Cannula 2.0 84 04/17/16 08:00 85 16 Nasal Cannula 3.0 32 04/17/16 04:30 82 04/17/16 04:00 97.5 78 18 120/65 97 Nasal Cannula 4.0 04/17/16 00:00 98.0 88 19 116/60 98 Nasal Cannula 3.0 04/16/16 23:57 87 04/16/16 20:11 98.2 88 18 103/70 97 Nasal Cannula 3.0 04/16/16 20:00 87 04/16/16 19:30 88 16 Nasal Cannula 3.0 32 04/16/16 17:00 89 04/16/16 16:00 98.2 92 18 108/71 97 04/16/16 12:00 98.8 91 19 114/69 95 Nasal Cannula 3.5 04/16/16 12:00 89 Height (Feet): 5 Height (Inches): 4.00 Weight (Pounds): 145 HEENT: atraumatic Respiratory/Chest: normal breath sounds Cardiovascular: regular rhythm Abdomen: no organomegaly Microbiology Date/Time Source Procedure Growth Status 04/14/16 13:40 Blood Blood Culture - Preliminary NO GROWTH AFTER 48 HOURS Resulted 04/14/16 13:30 Blood Blood Culture - Preliminary NO GROWTH AFTER 48 HOURS Resulted 04/14/16 15:13 Nasal Nares MRSA Culture - Final NO METHICILLIN RESISTANT STAPH AUREUS... Complete 04/14/16 13:40 Nasal Nares Influenza Types A,B Antigen (NILS) - Final Complete 04/14/16 15:13 Rectum VRE Culture - Final Enterococcus Faecium - Vre Complete Laboratory Tests Test 04/17/16 04:10 White Blood Count 10.9 K/UL (4.8-10.8) H Red Blood Count 3.30 M/UL (4.70-6.10) L Hemoglobin 10.8 G/DL (14.2-18.0) L Hematocrit 31.1 % (42.0-52.0) L Mean Corpuscular Volume 94 FL (80-99) Mean Corpuscular Hemoglobin 32.7 PG (27.0-31.0) H Mean Corpuscular Hemoglobin Concent 34.7 G/DL (32.0-36.0) Red Cell Distribution Width 14.2 % (11.6-14.8) Platelet Count 123 K/UL (150-450) L Mean Platelet Volume 11.6 FL (6.5-10.1) H Neutrophils (%) (Auto) 71.0 % (45.0-75.0) Lymphocytes (%) (Auto) 20.9 % (20.0-45.0) Monocytes (%) (Auto) 4.1 % (1.0-10.0) Eosinophils (%) (Auto) 3.5 % (0.0-3.0) H Basophils (%) (Auto) 0.6 % (0.0-2.0) Prothrombin Time 10.5 SEC (9.30-11.50) Prothromb Time International Ratio 1.0 (0.9-1.1) Activated Partial Thromboplast Time 29 SEC (23-33) Sodium Level 152 mEQ/L (135-145) H Potassium Level 3.3 mEQ/L (3.4-4.9) L Chloride Level 115 mEQ/L (98-107) H Carbon Dioxide Level 24 mEQ/L (20-30) Anion Gap 13 (5-15) Blood Urea Nitrogen 10 mg/dL (7-23) Creatinine 0.7 mg/dL (0.7-1.2) Estimat Glomerular Filtration Rate > 60 mL/min (>60) Glucose Level 146 mg/dL (74-106) H Uric Acid Pending Calcium Level 7.6 mg/dL (8.6-10.2) L Phosphorus Level 2.3 mg/dL (2.5-4.8) L Magnesium Level 1.8 mg/dL (1.7-2.5) Total Bilirubin 0.7 mg/dL (0.0-1.2) Gamma Glutamyl Transpeptidase Pending Aspartate Amino Transf (AST/SGOT) 15 U/L (5-40) Alanine Aminotransferase (ALT/SGPT) 18 U/L (3-41) Alkaline Phosphatase 92 U/L (40-129) Total Creatine Kinase 97 U/L (38-174) C-Reactive Protein, Quantitative Pending Pro-B-Type Natriuretic Peptide 235 pg/mL (0-125) H Total Protein 6.6 g/dL (6.6-8.7) Albumin 2.5 g/dL (3.5-5.2) L Globulin 4.1 g/dL Albumin/Globulin Ratio 0.6 (1.0-2.7) L Thyroid Stimulating Hormone (TSH) Pending Current Medications Medications (Trade) Dose Ordered Sig/Xochilt Route PRN Reason Start Time Stop Time Status Last Admin Dose Admin Acetaminophen (Tylenol) 650 mg Q4H PRN ORAL fever 04/17/16 06:30 05/17/16 06:29 Albuterol/ Ipratropium (DuoNeb 0.5-3(2.5)mg/3ml) 3 ml Q4H PRN HHN Shortness of Breath 04/17/16 06:30 04/22/16 06:29 Clonidine HCl (Catapres) 0.1 mg Q4H PRN ORAL sbp more than 160 04/17/16 06:30 05/17/16 06:29 Dextrose (Dextrose 50%) STAT PRN IV Hypoglycemia 04/17/16 06:23 05/17/16 06:22 Heparin Sodium (Porcine) (Heparin 5000 units/ml) 5,000 units EVERY 12 HOURS SUBQ 04/17/16 09:00 05/17/16 08:59 Insulin Aspart (NovoLOG) BEFORE MEALS AND HS SUBQ 04/17/16 11:30 05/17/16 11:29 Insulin Detemir (Levemir) 20 units Q12HR SUBQ 04/17/16 09:00 05/17/16 08:59 Morphine Sulfate (Morphine Sulfate) 2 mg Q4H PRN IVP severe pain 7-10 04/17/16 06:30 04/24/16 06:29 Nitroglycerin (Ntg) 0.4 mg Q5M X 3 DOSES PRN SL Prn Chest Pain 04/17/16 06:00 05/17/16 05:59 Ondansetron HCl (Zofran) 4 mg Q6H PRN IVP Nausea & Vomiting 04/17/16 06:30 05/17/16 06:29 Piperacillin Sod/ Tazobactam Sod 3.375 gm/Dextrose 110 ml @ 27.5 mls/hr Q8HR IVPB 04/17/16 06:30 04/24/16 06:29 04/17/16 06:46 Polyethylene Glycol (Miralax) 17 gm HSPRN PRN ORAL Constipation 04/17/16 06:26 05/17/16 06:25 Sodium Chloride 1,000 ml @ 75 mls/hr [id number] IV 04/17/16 06:30 05/17/16 06:29 Temazepam (Restoril) 15 mg HSPRN PRN ORAL Insomnia 04/17/16 06:26 04/24/16 06:25 Vancomycin HCl (Vanco rx to dose) 1 ea DAILY PRN MISC Per rx protocol 04/17/16 09:00 05/17/16 08:59 Vancomycin HCl/ Dextrose (Vancomycin/D5W) 275 ml @ 183.708 mls/hr Q24H IVPB 04/17/16 16:00 04/22/16 15:59 NAINA GRIMES M.D. Apr 17, 2016 09:30
[2016-04-17 12:53] VITALS: BP 110/69
[2016-04-17 12:53] LABS: CRP QUANT 18.9 mg/dL (< 0.5); URIC ACID 2.1 mg/dL (3.0-7.5)
--- NOTE | 2016-04-17 14:30 | General Progress Note ---
Assessment/Plan Problem List: (1) Diabetes ICD Codes: E11.9 - Type 2 diabetes mellitus without complications SNOMED: 94642741 (2) Renal insufficiency ICD Codes: N28.9 - Disorder of kidney and ureter, unspecified SNOMED: 472805213 (3) Sepsis ICD Codes: A41.9 - Sepsis, unspecified organism SNOMED: 31431931 Qualifiers: Qualified Codes: A41.9 - Sepsis, unspecified organism (4) Hyperglycemia ICD Codes: R73.9 - Hyperglycemia, unspecified SNOMED: 19086461 Status: stable, progressing, tolerating diet Assessment/Plan o2 pulm tx abx cbc bmp am Subjective Constitutional: Reports: weakness Allergies: Coded Allergies: No Known Allergies (Unverified , 04/14/16) All Systems: reviewed and negative except above Subjective o2nc sleepy Objective Last 24 Hour Vital Signs Date Time Temp Pulse Resp B/P Pulse Ox O2 Delivery O2 Flow Rate FiO2 04/17/16 12:53 97.9 87 20 110/69 98 Nasal Cannula 2.0 87 04/17/16 08:48 97.2 84 20 123/73 100 Nasal Cannula 2.0 84 04/17/16 08:00 85 16 Nasal Cannula 3.0 32 04/17/16 04:30 82 04/17/16 04:00 97.5 78 18 120/65 97 Nasal Cannula 4.0 04/17/16 00:00 98.0 88 19 116/60 98 Nasal Cannula 3.0 04/16/16 23:57 87 04/16/16 20:11 98.2 88 18 103/70 97 Nasal Cannula 3.0 04/16/16 20:00 87 04/16/16 19:30 88 16 Nasal Cannula 3.0 32 04/16/16 17:00 89 04/16/16 16:00 98.2 92 18 108/71 97 Intake and Output 04/16/16 04/17/16 19:00 07:00 Intake Total 942.5 ml 1207.5 ml Output Total 475 ml 1300 ml Balance 467.5 ml -92.5 ml Free Water 600 ml 375 ml IV Total 342.5 ml 832.5 ml Output Urine Total 475 ml 1300 ml # Bowel Movements 1 1 Laboratory Tests 04/17/16 04:10: White Blood Count 10.9H, Red Blood Count 3.30L, Hemoglobin 10.8L, Hematocrit 31.1L, Mean Corpuscular Volume 94, Mean Corpuscular Hemoglobin 32.7H, Mean Corpuscular Hemoglobin Concent 34.7, Red Cell Distribution Width 14.2, Platelet Count 123L, Mean Platelet Volume 11.6H, Neutrophils (%) (Auto) 71.0, Lymphocytes (%) (Auto) 20.9, Monocytes (%) (Auto) 4.1, Eosinophils (%) (Auto) 3.5H, Basophils (%) (Auto) 0.6, Prothrombin Time 10.5, Prothromb Time International Ratio 1.0, Activated Partial Thromboplast Time 29, Sodium Level 152H, Potassium Level 3.3L, Chloride Level 115H, Carbon Dioxide Level 24, Anion Gap 13, Blood Urea Nitrogen 10, Creatinine 0.7, Estimat Glomerular Filtration Rate > 60, Glucose Level 146H, Uric Acid 2.1L, Calcium Level 7.6L, Phosphorus Level 2.3L, Magnesium Level 1.8, Total Bilirubin 0.7, Gamma Glutamyl Transpeptidase 25, Aspartate Amino Transf (AST/SGOT) 15, Alanine Aminotransferase (ALT/SGPT) 18, Alkaline Phosphatase 92, Total Creatine Kinase 97, C-Reactive Protein, Quantitative 18.9H, Pro-B-Type Natriuretic Peptide 235H , Total Protein 6.6, Albumin 2.5L, Globulin 4.1, Albumin/Globulin Ratio 0.6L, Thyroid Stimulating Hormone (TSH) 2.170 Height (Feet): 5 Height (Inches): 4.00 Weight (Pounds): 145 General Appearance: lethargic EENT: normal ENT inspection Neck: normal alignment Cardiovascular: normal peripheral pulses, normal rate, regular rhythm Respiratory/Chest: chest wall non-tender, lungs clear, decreased breath sounds Abdomen: normal bowel sounds, non tender, soft Extremities: normal inspection Edema: no edema noted Arm (L), no edema noted Arm (R), no edema noted Leg (L), no edema noted Leg (R), no edema noted Pedal (L), no edema noted Pedal (R), no edema noted Generalized Neurologic: motor weakness Skin: normal pigmentation, warm/dry SARAH THOMAS Apr 17, 2016 14:30
[2016-04-17 16:00] VITALS: BP 116/76
[2016-04-17] MEDS ORDERED: Vancomycin 1 GM in D5W 275 ML IVPB SCH ×2 (16:00→18:00)
--- NOTE | 2016-04-17 16:10 | General Progress Note ---
Assessment/Plan Status: unchanged Status Narrative Na lower Assessment/Plan PAST MEDICAL HISTORY: 1. CVA. 2. Diabetes. 3. Hypertension. . Assessment/Plan status; (1) Hyperosmolar coma (2) Sepsis (3) Acute hypernatremia (4) Aphasia, post-stroke (5) Pneumonia (6) Renal insufficiency (7) [facility] resident (8) G-tube site cellulitis Plan; free water- Phos supplement- Monitor renal parameters- per consultants Subjective ROS Limited/Unobtainable: No Constitutional: Reports: malaise, weakness Allergies: Coded Allergies: No Known Allergies (Unverified , 04/14/16) Objective Last 24 Hour Vital Signs Date Time Temp Pulse Resp B/P Pulse Ox O2 Delivery O2 Flow Rate FiO2 04/17/16 12:53 97.9 87 20 110/69 98 Nasal Cannula 2.0 87 04/17/16 08:48 97.2 84 20 123/73 100 Nasal Cannula 2.0 84 04/17/16 08:00 85 16 Nasal Cannula 3.0 32 04/17/16 04:30 82 04/17/16 04:00 97.5 78 18 120/65 97 Nasal Cannula 4.0 04/17/16 00:00 98.0 88 19 116/60 98 Nasal Cannula 3.0 04/16/16 23:57 87 04/16/16 20:11 98.2 88 18 103/70 97 Nasal Cannula 3.0 04/16/16 20:00 87 04/16/16 19:30 88 16 Nasal Cannula 3.0 32 04/16/16 17:00 89 Intake and Output 04/16/16 04/17/16 19:00 07:00 Intake Total 942.5 ml 1207.5 ml Output Total 475 ml 1300 ml Balance 467.5 ml -92.5 ml Free Water 600 ml 375 ml IV Total 342.5 ml 832.5 ml Output Urine Total 475 ml 1300 ml # Bowel Movements 1 1 Laboratory Tests 04/17/16 04:10: White Blood Count 10.9H, Red Blood Count 3.30L, Hemoglobin 10.8L, Hematocrit 31.1L, Mean Corpuscular Volume 94, Mean Corpuscular Hemoglobin 32.7H, Mean Corpuscular Hemoglobin Concent 34.7, Red Cell Distribution Width 14.2, Platelet Count 123L, Mean Platelet Volume 11.6H, Neutrophils (%) (Auto) 71.0, Lymphocytes (%) (Auto) 20.9, Monocytes (%) (Auto) 4.1, Eosinophils (%) (Auto) 3.5H, Basophils (%) (Auto) 0.6, Prothrombin Time 10.5, Prothromb Time International Ratio 1.0, Activated Partial Thromboplast Time 29, Sodium Level 152H, Potassium Level 3.3L, Chloride Level 115H, Carbon Dioxide Level 24, Anion Gap 13, Blood Urea Nitrogen 10, Creatinine 0.7, Estimat Glomerular Filtration Rate > 60, Glucose Level 146H, Uric Acid 2.1L, Calcium Level 7.6L, Phosphorus Level 2.3L, Magnesium Level 1.8, Total Bilirubin 0.7, Gamma Glutamyl Transpeptidase 25, Aspartate Amino Transf (AST/SGOT) 15, Alanine Aminotransferase (ALT/SGPT) 18, Alkaline Phosphatase 92, Total Creatine Kinase 97, C-Reactive Protein, Quantitative 18.9H, Pro-B-Type Natriuretic Peptide 235H , Total Protein 6.6, Albumin 2.5L, Globulin 4.1, Albumin/Globulin Ratio 0.6L, Thyroid Stimulating Hormone (TSH) 2.170 04/17/16 15:20: Vancomycin Level Trough 5.8 Height (Feet): 5 Height (Inches): 4.00 Weight (Pounds): 145 General Appearance: no apparent distress Objective PE not change DEANA DOMINGUEZ Apr 17, 2016 16:10
[2016-04-17] MEDS: Vancomycin 1 GM in D5W 275 ML IVPB SCH (17:46)
[2016-04-17] MEDS ORDERED: Potassium Phosphate 30 MM in NS 275 ML IV ONE (18:00)
[2016-04-17 20:00] VITALS: BP 115/65
--- NOTE | 2016-04-17 22:00 | Pulmonology Progress Note ---
Assessment/Plan Problems: (1) Hyperosmolar coma (2) Sepsis (3) Acute hypernatremia (4) Aphasia, post-stroke (5) Pneumonia (6) Renal insufficiency (7) halfway resident (8) G-tube site cellulitis Assessment/Plan pts mental status improving continue tap water check cultures continue abx med/surg Subjective ROS Limited/Unobtainable: Yes Constitutional: Reports: fatigue Respiratory: Reports: dyspnea on exertion, pleuritic pain, productive cough, shortness of breath, sputum, wheezing Neurologic: Reports: weakness Allergies: Coded Allergies: No Known Allergies (Unverified , 04/14/16) Objective Last 24 Hour Vital Signs Date Time Temp Pulse Resp B/P Pulse Ox O2 Delivery O2 Flow Rate FiO2 04/17/16 20:00 99.5 68 21 115/65 97 Nasal Cannula 3.5 04/17/16 19:53 98 Nasal Cannula 4.0 36 04/17/16 19:53 Nasal Cannula 4.0 36 04/17/16 19:52 87 16 Nasal Cannula 4.0 36 04/17/16 16:00 98.2 83 20 116/76 97 Nasal Cannula 3.5 04/17/16 12:53 97.9 87 20 110/69 98 Nasal Cannula 2.0 87 04/17/16 08:48 97.2 84 20 123/73 100 Nasal Cannula 2.0 84 04/17/16 08:00 85 16 Nasal Cannula 3.0 32 04/17/16 04:30 82 04/17/16 04:00 97.5 78 18 120/65 97 Nasal Cannula 4.0 04/17/16 00:00 98.0 88 19 116/60 98 Nasal Cannula 3.0 04/16/16 23:57 87 Intake and Output 04/16/16 04/17/16 19:00 07:00 Intake Total 942.5 ml 1207.5 ml Output Total 475 ml 1300 ml Balance 467.5 ml -92.5 ml Free Water 600 ml 375 ml IV Total 342.5 ml 832.5 ml Output Urine Total 475 ml 1300 ml # Bowel Movements 1 1 General Appearance: no acute distress HEENT: normocephalic, atraumatic, PERRL Respiratory/Chest: chest wall non-tender, decreased breath sounds, accessory muscle use, rhonchi, expiratory wheezing Cardiovascular: normal peripheral pulses, normal rate, regular rhythm, no JVD Abdomen: normal bowel sounds, soft, non tender, no organomegaly, non distended Genitourinary: normal external genitalia Extremities: no cyanosis Skin: rash, lesions Neurologic/Psychiatric: abnormal CN, motor weakness, disoriented, aphasia Laboratory Tests 04/17/16 04:10: White Blood Count 10.9H, Red Blood Count 3.30L, Hemoglobin 10.8L, Hematocrit 31.1L, Mean Corpuscular Volume 94, Mean Corpuscular Hemoglobin 32.7H, Mean Corpuscular Hemoglobin Concent 34.7, Red Cell Distribution Width 14.2, Platelet Count 123L, Mean Platelet Volume 11.6H, Neutrophils (%) (Auto) 71.0, Lymphocytes (%) (Auto) 20.9, Monocytes (%) (Auto) 4.1, Eosinophils (%) (Auto) 3.5H, Basophils (%) (Auto) 0.6, Prothrombin Time 10.5, Prothromb Time International Ratio 1.0, Activated Partial Thromboplast Time 29, Sodium Level 152H, Potassium Level 3.3L, Chloride Level 115H, Carbon Dioxide Level 24, Anion Gap 13, Blood Urea Nitrogen 10, Creatinine 0.7, Estimat Glomerular Filtration Rate > 60, Glucose Level 146H, Uric Acid 2.1L, Calcium Level 7.6L, Phosphorus Level 2.3L, Magnesium Level 1.8, Total Bilirubin 0.7, Gamma Glutamyl Transpeptidase 25, Aspartate Amino Transf (AST/SGOT) 15, Alanine Aminotransferase (ALT/SGPT) 18, Alkaline Phosphatase 92, Total Creatine Kinase 97, C-Reactive Protein, Quantitative 18.9H, Pro-B-Type Natriuretic Peptide 235H , Total Protein 6.6, Albumin 2.5L, Globulin 4.1, Albumin/Globulin Ratio 0.6L, Thyroid Stimulating Hormone (TSH) 2.170 04/17/16 15:20: Vancomycin Level Trough 5.8 Current Medications Medications (Trade) Dose Ordered Sig/Xochilt Route PRN Reason Start Time Stop Time Status Last Admin Dose Admin Acetaminophen (Tylenol) 650 mg Q4H PRN ORAL fever 04/17/16 06:30 05/17/16 06:29 Albuterol/ Ipratropium (DuoNeb 0.5-3(2.5)mg/3ml) 3 ml Q4H PRN HHN Shortness of Breath 04/17/16 06:30 04/22/16 06:29 Clonidine HCl (Catapres) 0.1 mg Q4H PRN ORAL sbp more than 160 04/17/16 06:30 05/17/16 06:29 Dextrose (Dextrose 50%) STAT PRN IV Hypoglycemia 04/17/16 06:23 05/17/16 06:22 Heparin Sodium (Porcine) (Heparin 5000 units/ml) 5,000 units EVERY 12 HOURS SUBQ 04/17/16 09:00 05/17/16 08:59 Insulin Aspart (NovoLOG) BEFORE MEALS AND HS SUBQ 04/17/16 11:30 05/17/16 11:29 04/17/16 21:38 Insulin Detemir (Levemir) 20 units Q12HR SUBQ 04/17/16 09:00 05/17/16 08:59 04/17/16 21:37 Morphine Sulfate (Morphine Sulfate) 2 mg Q4H PRN IVP severe pain 7-10 04/17/16 06:30 04/24/16 06:29 Nitroglycerin (Ntg) 0.4 mg Q5M X 3 DOSES PRN SL Prn Chest Pain 04/17/16 06:00 05/17/16 05:59 Ondansetron HCl (Zofran) 4 mg Q6H PRN IVP Nausea & Vomiting 04/17/16 06:30 05/17/16 06:29 Piperacillin Sod/ Tazobactam Sod/ Dextrose (Zosyn/D5W) 110 ml @ 27.5 mls/hr Q8HR IVPB 04/17/16 06:30 04/24/16 06:29 04/17/16 13:49 Polyethylene Glycol (Miralax) 17 gm HSPRN PRN ORAL Constipation 04/17/16 06:26 05/17/16 06:25 Potassium Phosphate 30 mm/ Sodium Chloride 285 ml @ 47.5 mls/hr ONCE ONCE IV 04/17/16 18:00 04/17/16 23:59 04/17/16 20:00 Sodium Chloride 1,000 ml @ 75 mls/hr [id number] IV 04/17/16 06:30 05/17/16 06:29 04/17/16 20:02 Temazepam (Restoril) 15 mg HSPRN PRN ORAL Insomnia 04/17/16 06:26 04/24/16 06:25 Vancomycin HCl 1 ea 1 ea DAILY PRN MISC Per rx protocol 04/17/16 09:00 05/17/16 08:59 Vancomycin HCl 1 gm/Dextrose 275 ml @ 183.708 mls/hr Q12HR@0600,1800 IVPB 04/17/16 18:00 04/22/16 17:59 04/17/16 17:46 Vancomycin HCl/ Dextrose (Vancomycin/D5W) 110 ml @ 110 mls/hr ONCE ONCE IVPB 04/18/16 00:00 04/18/16 00:59 LUIGI JAMIL Apr 17, 2016 22:00
[2016-04-18] VITALS: BP 120/74
[2016-04-18] MEDS ORDERED: Vancomycin 500mg in D5W 110ml IVPB ONE ×2
[2016-04-18 04:00] VITALS: BP 112/78
[2016-04-18] MEDS: Vancomycin 1 GM in D5W 275 ML IVPB SCH (05:56)
[2016-04-18] MEDS: Piperacillin/Tazobactam 3.375 GM in D5W 110 ML IVPB SCH ×2 (05:56→13:48)
[2016-04-18] MEDS: NovoLOG Insulin Flexpen SUBQ SCH ×3 (06:20→16:21)
[2016-04-18 06:28] LABS: BASOPHILS % (AUTO) 0.9 % (0.0-2.0); EOSINOPHILS % (AUTO) 2.8 % (0.0-3.0); LYMPHOCYTES % (AUTO) 24.9 % (20.0-45.0); MEAN CORPUSCULAR HEMOGLOBIN 31.2 PG (27.0-31.0); MEAN CORPUSCULAR HGB CONC 33.8 G/DL (32.0-36.0); MEAN CORPUSCULAR VOLUME 92 FL (80-99); MEAN PLATELET VOLUME 11.6 FL (6.5-10.1); MONOCYTES % (AUTO) 5.7 % (1.0-10.0); NEUTROPHILS % (AUTO) 65.8 % (45.0-75.0); PLATELET COUNT 140 K/UL (150-450); RED BLOOD COUNT 3.89 M/UL (4.70-6.10); RED CELL DISTRIBUTION WIDTH 13.3 % (11.6-14.8)
[2016-04-18 07:03] LABS: ALANINE AMINOTRANSFERASE 17 U/L (3-41); ALBUMIN/GLOBULIN RATIO 0.6 (1.0-2.7); ANION GAP 17 (5-15); ASPARTATE AMINO TRANSFERASE 18 U/L (5-40); CALCIUM 7.8 mg/dL (8.6-10.2); CARBON DIOXIDE 23 mEQ/L (20-30); CHLORIDE 103 mEQ/L (98-107); CREATININE 0.8 mg/dL (0.7-1.2); GLOMERULAR FILTRATION RATE > 60 mL/min (>60); HEMOLYSIS 3; MAGNESIUM 1.7 mg/dL (1.7-2.5); PHOSPHORUS 2.2 mg/dL (2.5-4.8); POTASSIUM 3.6 mEQ/L (3.4-4.9); SODIUM 143 mEQ/L (135-145); TOTAL PROTEIN 7.4 g/dL (6.6-8.7)
--- NOTE | 2016-04-18 08:47 | Infectious Diseases Prog Note ---
Assessment/Plan Assessment/Plan A: The patient is a 65-year-old male with Fever , SP Chest x-ray, no acute process. Sepsis / Leucocytosis , SP ? Source HyperNa+ improved SP ALOC CVA. Diabetes. Hypertension. P: Cont pt on vancomycin and Zosyn d# 5 / 7 ( empirically ) Monitor CBC Monitor BNP. Monitor cultures (blood ) Monitor chest x-ray Subjective Constitutional: Denies: anorexia, chills, drenching sweats, fatigue, fever, no symptoms, other Allergies: Coded Allergies: No Known Allergies (Unverified , 04/14/16) Objective Vital Signs Last 24 Hour Vital Signs Date Time Temp Pulse Resp B/P Pulse Ox O2 Delivery O2 Flow Rate FiO2 04/18/16 04:00 97.6 86 18 112/78 97 Nasal Cannula 4.0 04/18/16 00:00 97.7 89 18 120/74 98 Nasal Cannula 3.0 04/17/16 20:00 99.5 68 21 115/65 97 Nasal Cannula 3.5 04/17/16 19:53 98 Nasal Cannula 4.0 36 04/17/16 19:53 Nasal Cannula 4.0 36 04/17/16 19:52 87 16 Nasal Cannula 4.0 36 04/17/16 16:00 98.2 83 20 116/76 97 Nasal Cannula 3.5 04/17/16 12:53 97.9 87 20 110/69 98 Nasal Cannula 2.0 87 04/17/16 08:48 97.2 84 20 123/73 100 Nasal Cannula 2.0 84 Height (Feet): 5 Height (Inches): 4.00 Weight (Pounds): 145 HEENT: atraumatic Respiratory/Chest: lungs clear, no respiratory distress Cardiovascular: regular rhythm Abdomen: no organomegaly Laboratory Tests Test 04/17/16 15:20 04/18/16 05:10 Vancomycin Level Trough 5.8 ug/mL (5.0-12.0) White Blood Count 8.0 K/UL (4.8-10.8) Red Blood Count 3.89 M/UL (4.70-6.10) L Hemoglobin 12.1 G/DL (14.2-18.0) L Hematocrit 35.8 % (42.0-52.0) L Mean Corpuscular Volume 92 FL (80-99) Mean Corpuscular Hemoglobin 31.2 PG (27.0-31.0) H Mean Corpuscular Hemoglobin Concent 33.8 G/DL (32.0-36.0) Red Cell Distribution Width 13.3 % (11.6-14.8) Platelet Count 140 K/UL (150-450) L Mean Platelet Volume 11.6 FL (6.5-10.1) H Neutrophils (%) (Auto) 65.8 % (45.0-75.0) Lymphocytes (%) (Auto) 24.9 % (20.0-45.0) Monocytes (%) (Auto) 5.7 % (1.0-10.0) Eosinophils (%) (Auto) 2.8 % (0.0-3.0) Basophils (%) (Auto) 0.9 % (0.0-2.0) Sodium Level 143 mEQ/L (135-145) Potassium Level 3.6 mEQ/L (3.4-4.9) Chloride Level 103 mEQ/L (98-107) Carbon Dioxide Level 23 mEQ/L (20-30) Anion Gap 17 (5-15) H Blood Urea Nitrogen 9 mg/dL (7-23) Creatinine 0.8 mg/dL (0.7-1.2) Estimat Glomerular Filtration Rate > 60 mL/min (>60) Glucose Level 172 mg/dL (74-106) H Calcium Level 7.8 mg/dL (8.6-10.2) L Phosphorus Level 2.2 mg/dL (2.5-4.8) L Magnesium Level 1.7 mg/dL (1.7-2.5) Total Bilirubin 0.7 mg/dL (0.0-1.2) Aspartate Amino Transf (AST/SGOT) 18 U/L (5-40) Alanine Aminotransferase (ALT/SGPT) 17 U/L (3-41) Alkaline Phosphatase 102 U/L (40-129) Total Protein 7.4 g/dL (6.6-8.7) Albumin 2.9 g/dL (3.5-5.2) L Globulin 4.5 g/dL Albumin/Globulin Ratio 0.6 (1.0-2.7) L Current Medications Medications (Trade) Dose Ordered Sig/Xochilt Route PRN Reason Start Time Stop Time Status Last Admin Dose Admin Acetaminophen (Tylenol) 650 mg Q4H PRN ORAL fever 04/17/16 06:30 05/17/16 06:29 Albuterol/ Ipratropium (DuoNeb 0.5-3(2.5)mg/3ml) 3 ml Q4H PRN HHN Shortness of Breath 04/17/16 06:30 04/22/16 06:29 Clonidine HCl (Catapres) 0.1 mg Q4H PRN ORAL sbp more than 160 04/17/16 06:30 05/17/16 06:29 Dextrose (Dextrose 50%) STAT PRN IV Hypoglycemia 04/17/16 06:23 05/17/16 06:22 Heparin Sodium (Porcine) (Heparin 5000 units/ml) 5,000 units EVERY 12 HOURS SUBQ 04/17/16 09:00 05/17/16 08:59 Insulin Aspart (NovoLOG) BEFORE MEALS AND HS SUBQ 04/17/16 11:30 05/17/16 11:29 04/18/16 06:20 Insulin Detemir (Levemir) 20 units Q12HR SUBQ 04/17/16 09:00 05/17/16 08:59 04/17/16 21:37 Morphine Sulfate (Morphine Sulfate) 2 mg Q4H PRN IVP severe pain 7-10 04/17/16 06:30 04/24/16 06:29 Nitroglycerin (Ntg) 0.4 mg Q5M X 3 DOSES PRN SL Prn Chest Pain 04/17/16 06:00 05/17/16 05:59 Ondansetron HCl (Zofran) 4 mg Q6H PRN IVP Nausea & Vomiting 04/17/16 06:30 05/17/16 06:29 Piperacillin Sod/ Tazobactam Sod/ Dextrose (Zosyn/D5W) 110 ml @ 27.5 mls/hr Q8HR IVPB 04/17/16 06:30 04/24/16 06:29 04/18/16 05:56 Polyethylene Glycol (Miralax) 17 gm HSPRN PRN ORAL Constipation 04/17/16 06:26 05/17/16 06:25 Sodium Chloride 1,000 ml @ 75 mls/hr [id number] IV 04/17/16 06:30 05/17/16 06:29 04/17/16 20:02 Temazepam (Restoril) 15 mg HSPRN PRN ORAL Insomnia 04/17/16 06:26 04/24/16 06:25 Vancomycin HCl 1 ea 1 ea DAILY PRN MISC Per rx protocol 04/17/16 09:00 05/17/16 08:59 Vancomycin HCl/ Dextrose (Vancomycin/D5W) 275 ml @ 183.708 mls/hr Q12HR@0600,1800 IVPB 04/17/16 18:00 04/22/16 17:59 04/18/16 05:56 NAIAN GRIMES M.D. Apr 18, 2016 08:47
[2016-04-18 08:48] VITALS: BP 107/65
[2016-04-18] MEDS: Heparin 5000 units/ml inj SUBQ SCH (09:00)
[2016-04-18] MEDS: Levemir Flexpen SUBQ SCH (09:26)
[2016-04-18] MEDS ORDERED: LEVEMIR FL100 UNIT/1 SUBQ (10:52)
[2016-04-18] MEDS ORDERED: ZOSYN 3.373.375 GM/1 IVPB (10:52)
[2016-04-18 12:40] VITALS: BP 116/76
--- NOTE | 2016-04-18 12:57 | General Progress Note ---
Assessment/Plan Problem List: (1) Diabetes ICD Codes: E11.9 - Type 2 diabetes mellitus without complications SNOMED: 34642378 (2) Renal insufficiency ICD Codes: N28.9 - Disorder of kidney and ureter, unspecified SNOMED: 815437697 (3) Sepsis ICD Codes: A41.9 - Sepsis, unspecified organism SNOMED: 39655472 Qualifiers: Qualified Codes: A41.9 - Sepsis, unspecified organism (4) Hyperglycemia ICD Codes: R73.9 - Hyperglycemia, unspecified SNOMED: 33006105 Status: stable, progressing Assessment/Plan o2 pulm tx abx dc plan Subjective Constitutional: Reports: weakness Allergies: Coded Allergies: No Known Allergies (Unverified , 04/14/16) All Systems: reviewed and negative except above Subjective o2nc sleepy Objective Last 24 Hour Vital Signs Date Time Temp Pulse Resp B/P Pulse Ox O2 Delivery O2 Flow Rate FiO2 04/18/16 08:48 97.8 85 19 107/65 95 Room Air 2.0 04/18/16 04:00 97.6 86 18 112/78 97 Nasal Cannula 4.0 04/18/16 00:00 97.7 89 18 120/74 98 Nasal Cannula 3.0 04/17/16 20:00 99.5 68 21 115/65 97 Nasal Cannula 3.5 04/17/16 19:53 98 Nasal Cannula 4.0 36 04/17/16 19:53 Nasal Cannula 4.0 36 04/17/16 19:52 87 16 Nasal Cannula 4.0 36 04/17/16 16:00 98.2 83 20 116/76 97 Nasal Cannula 3.5 Intake and Output 04/17/16 04/18/16 19:00 07:00 Intake Total 753.708 ml 1341.500 ml Output Total 1200 ml 750 ml Balance -446.292 ml 591.500 ml Intake Oral 85 ml 90 ml Free Water 375 ml 200 ml IV Total 293.708 ml 1051.500 ml Output Urine Total 1200 ml 750 ml # Voids 1 Laboratory Tests 04/17/16 15:20: Vancomycin Level Trough 5.8 04/18/16 05:10: White Blood Count 8.0, Red Blood Count 3.89L, Hemoglobin 12.1L, Hematocrit 35.8L , Mean Corpuscular Volume 92, Mean Corpuscular Hemoglobin 31.2H, Mean Corpuscular Hemoglobin Concent 33.8, Red Cell Distribution Width 13.3, Platelet Count 140L, Mean Platelet Volume 11.6H, Neutrophils (%) (Auto) 65.8, Lymphocytes (%) (Auto) 24.9, Monocytes (%) (Auto) 5.7, Eosinophils (%) (Auto) 2.8, Basophils (%) (Auto) 0.9, Sodium Level 143, Potassium Level 3.6, Chloride Level 103, Carbon Dioxide Level 23, Anion Gap 17H, Blood Urea Nitrogen 9, Creatinine 0.8, Estimat Glomerular Filtration Rate > 60, Glucose Level 172H, Calcium Level 7.8L, Phosphorus Level 2.2L, Magnesium Level 1.7, Total Bilirubin 0.7, Aspartate Amino Transf (AST/SGOT) 18, Alanine Aminotransferase (ALT/SGPT) 17, Alkaline Phosphatase 102, Total Protein 7.4, Albumin 2.9L, Globulin 4.5, Albumin/Globulin Ratio 0.6L Height (Feet): 5 Height (Inches): 4.00 Weight (Pounds): 145 General Appearance: lethargic EENT: normal ENT inspection Neck: normal alignment Cardiovascular: normal peripheral pulses, normal rate, regular rhythm Respiratory/Chest: chest wall non-tender, lungs clear, normal breath sounds Abdomen: normal bowel sounds, non tender, soft Extremities: normal inspection Edema: no edema noted Arm (L), no edema noted Arm (R), no edema noted Leg (L), no edema noted Leg (R), no edema noted Pedal (L), no edema noted Pedal (R), no edema noted Generalized Neurologic: motor weakness Skin: normal pigmentation, warm/dry SARAH THOMAS Apr 18, 2016 12:57
--- NOTE | 2016-04-18 13:18 | General Progress Note ---
Assessment/Plan Status: stable - from renal stand Assessment/Plan PAST MEDICAL HISTORY: 1. CVA. 2. Diabetes. 3. Hypertension. . Assessment/Plan status; (1) Hyperosmolar coma (2) Sepsis (3) Acute hypernatremia (4) Aphasia, post-stroke (5) Pneumonia (6) Renal insufficiency (7) residential resident (8) G-tube site cellulitis Plan; free water- Phos supplement- Monitor renal parameters- per consultants Subjective ROS Limited/Unobtainable: No Constitutional: Reports: malaise Allergies: Coded Allergies: No Known Allergies (Unverified , 04/14/16) Objective Last 24 Hour Vital Signs Date Time Temp Pulse Resp B/P Pulse Ox O2 Delivery O2 Flow Rate FiO2 04/18/16 12:40 97.5 94 19 116/76 98 Nasal Cannula 2.0 04/18/16 08:48 97.8 85 19 107/65 95 Room Air 2.0 04/18/16 04:00 97.6 86 18 112/78 97 Nasal Cannula 4.0 04/18/16 00:00 97.7 89 18 120/74 98 Nasal Cannula 3.0 04/17/16 20:00 99.5 68 21 115/65 97 Nasal Cannula 3.5 04/17/16 19:53 98 Nasal Cannula 4.0 36 04/17/16 19:53 Nasal Cannula 4.0 36 04/17/16 19:52 87 16 Nasal Cannula 4.0 36 04/17/16 16:00 98.2 83 20 116/76 97 Nasal Cannula 3.5 Intake and Output 04/17/16 04/18/16 19:00 07:00 Intake Total 753.708 ml 1341.500 ml Output Total 1200 ml 750 ml Balance -446.292 ml 591.500 ml Intake Oral 85 ml 90 ml Free Water 375 ml 200 ml IV Total 293.708 ml 1051.500 ml Output Urine Total 1200 ml 750 ml # Voids 1 Laboratory Tests 04/17/16 15:20: Vancomycin Level Trough 5.8 04/18/16 05:10: White Blood Count 8.0, Red Blood Count 3.89L, Hemoglobin 12.1L, Hematocrit 35.8L , Mean Corpuscular Volume 92, Mean Corpuscular Hemoglobin 31.2H, Mean Corpuscular Hemoglobin Concent 33.8, Red Cell Distribution Width 13.3, Platelet Count 140L, Mean Platelet Volume 11.6H, Neutrophils (%) (Auto) 65.8, Lymphocytes (%) (Auto) 24.9, Monocytes (%) (Auto) 5.7, Eosinophils (%) (Auto) 2.8, Basophils (%) (Auto) 0.9, Sodium Level 143, Potassium Level 3.6, Chloride Level 103, Carbon Dioxide Level 23, Anion Gap 17H, Blood Urea Nitrogen 9, Creatinine 0.8, Estimat Glomerular Filtration Rate > 60, Glucose Level 172H, Calcium Level 7.8L, Phosphorus Level 2.2L, Magnesium Level 1.7, Total Bilirubin 0.7, Aspartate Amino Transf (AST/SGOT) 18, Alanine Aminotransferase (ALT/SGPT) 17, Alkaline Phosphatase 102, Total Protein 7.4, Albumin 2.9L, Globulin 4.5, Albumin/Globulin Ratio 0.6L Height (Feet): 5 Height (Inches): 4.00 Weight (Pounds): 145 General Appearance: no apparent distress Objective PE not change DEANA DOMINGUEZ Apr 18, 2016 13:18
[2016-04-18] MEDS ORDERED: Potassium Phosphate 30 MM in NS 275 ML IV ONE (16:00)
[2016-04-18] MEDS ORDERED: 1/2 NS 1000ml IV ONE ×2 (17:04)
[2016-04-18] MEDS ORDERED: Tubing IV Secondary IV ONE ×2 (17:04)
[2016-04-18] MEDS ORDERED: Sterile Water Irrig 1000ml IRRIG ONE (17:04)
[2016-04-18] MEDS ORDERED: NS 275ml ONE ×2 (17:04)
--- NOTE | 2016-04-18 17:12 | Pulmonology Progress Note ---
Assessment/Plan Problems: (1) Hyperosmolar coma (2) Sepsis (3) Acute hypernatremia (4) Aphasia, post-stroke (5) Pneumonia (6) Renal insufficiency (7) [facility] resident (8) G-tube site cellulitis Assessment/Plan pts mental status improving continue tap water check cultures continue abx med/surg Subjective ROS Limited/Unobtainable: Yes Respiratory: Reports: dyspnea on exertion, productive cough, shortness of breath, sputum Allergies: Coded Allergies: No Known Allergies (Unverified , 04/14/16) Objective Last 24 Hour Vital Signs Date Time Temp Pulse Resp B/P Pulse Ox O2 Delivery O2 Flow Rate FiO2 04/18/16 12:40 97.5 94 19 116/76 98 Nasal Cannula 2.0 04/18/16 08:48 97.8 85 19 107/65 95 Room Air 2.0 04/18/16 06:48 Nasal Cannula 2.0 04/18/16 06:47 96 Nasal Cannula 2.0 04/18/16 06:44 84 18 Nasal Cannula 2.0 04/18/16 04:00 97.6 86 18 112/78 97 Nasal Cannula 4.0 04/18/16 00:00 97.7 89 18 120/74 98 Nasal Cannula 3.0 04/17/16 20:00 99.5 68 21 115/65 97 Nasal Cannula 3.5 04/17/16 19:53 98 Nasal Cannula 4.0 36 04/17/16 19:53 Nasal Cannula 4.0 36 04/17/16 19:52 87 16 Nasal Cannula 4.0 36 Intake and Output 04/17/16 04/18/16 19:00 07:00 Intake Total 753.708 ml 1341.500 ml Output Total 1200 ml 750 ml Balance -446.292 ml 591.500 ml Intake Oral 85 ml 90 ml Free Water 375 ml 200 ml IV Total 293.708 ml 1051.500 ml Output Urine Total 1200 ml 750 ml # Voids 1 General Appearance: no acute distress HEENT: normocephalic, atraumatic, PERRL Respiratory/Chest: chest wall non-tender, decreased breath sounds, accessory muscle use, crackles/rales, rhonchi Cardiovascular: normal peripheral pulses, normal rate, regular rhythm, no JVD Abdomen: normal bowel sounds, soft, non tender, no organomegaly Genitourinary: normal external genitalia Extremities: no cyanosis Neurologic/Psychiatric: abnormal CN, motor weakness, aphasia Laboratory Tests 04/18/16 05:10: White Blood Count 8.0, Red Blood Count 3.89L, Hemoglobin 12.1L, Hematocrit 35.8L , Mean Corpuscular Volume 92, Mean Corpuscular Hemoglobin 31.2H, Mean Corpuscular Hemoglobin Concent 33.8, Red Cell Distribution Width 13.3, Platelet Count 140L, Mean Platelet Volume 11.6H, Neutrophils (%) (Auto) 65.8, Lymphocytes (%) (Auto) 24.9, Monocytes (%) (Auto) 5.7, Eosinophils (%) (Auto) 2.8, Basophils (%) (Auto) 0.9, Sodium Level 143, Potassium Level 3.6, Chloride Level 103, Carbon Dioxide Level 23, Anion Gap 17H, Blood Urea Nitrogen 9, Creatinine 0.8, Estimat Glomerular Filtration Rate > 60, Glucose Level 172H, Calcium Level 7.8L, Phosphorus Level 2.2L, Magnesium Level 1.7, Total Bilirubin 0.7, Aspartate Amino Transf (AST/SGOT) 18, Alanine Aminotransferase (ALT/SGPT) 17, Alkaline Phosphatase 102, Total Protein 7.4, Albumin 2.9L, Globulin 4.5, Albumin/Globulin Ratio 0.6L Current Medications Medications (Trade) Dose Ordered Sig/Xochilt Route PRN Reason Start Time Stop Time Status Last Admin Dose Admin Acetaminophen (Tylenol) 650 mg Q4H PRN ORAL fever 04/17/16 06:30 05/17/16 06:29 Albuterol/ Ipratropium (DuoNeb 0.5-3(2.5)mg/3ml) 3 ml Q4H PRN HHN Shortness of Breath 04/17/16 06:30 04/22/16 06:29 Clonidine HCl (Catapres) 0.1 mg Q4H PRN ORAL sbp more than 160 04/17/16 06:30 05/17/16 06:29 Dextrose (Dextrose 50%) STAT PRN IV Hypoglycemia 04/17/16 06:23 05/17/16 06:22 Heparin Sodium (Porcine) (Heparin 5000 units/ml) 5,000 units EVERY 12 HOURS SUBQ 04/17/16 09:00 05/17/16 08:59 Insulin Aspart (NovoLOG) BEFORE MEALS AND HS SUBQ 04/17/16 11:30 05/17/16 11:29 04/18/16 16:21 Insulin Detemir (Levemir) 20 units Q12HR SUBQ 04/17/16 09:00 05/17/16 08:59 04/18/16 09:26 Morphine Sulfate (Morphine Sulfate) 2 mg Q4H PRN IVP severe pain 7-10 04/17/16 06:30 04/24/16 06:29 Nitroglycerin (Ntg) 0.4 mg Q5M X 3 DOSES PRN SL Prn Chest Pain 04/17/16 06:00 05/17/16 05:59 Ondansetron HCl (Zofran) 4 mg Q6H PRN IVP Nausea & Vomiting 04/17/16 06:30 05/17/16 06:29 Piperacillin Sod/ Tazobactam Sod/ Dextrose (Zosyn/D5W) 110 ml @ 27.5 mls/hr Q8HR IVPB 04/17/16 06:30 04/24/16 06:29 04/18/16 13:48 Polyethylene Glycol (Miralax) 17 gm HSPRN PRN ORAL Constipation 04/17/16 06:26 05/17/16 06:25 Potassium Phosphate/Sodium Chloride (Potassium Phosphate/Sodium Chloride) 285 ml @ 47.5 mls/hr ONCE ONCE IV 04/18/16 16:00 04/18/16 21:59 04/18/16 16:18 Temazepam (Restoril) 15 mg HSPRN PRN ORAL Insomnia 04/17/16 06:26 04/24/16 06:25 Vancomycin HCl 1 ea 1 ea DAILY PRN MISC Per rx protocol 04/17/16 09:00 05/17/16 08:59 Vancomycin HCl 1 gm/Dextrose 275 ml @ 183.708 mls/hr Q12HR@0600,1800 IVPB 04/17/16 18:00 04/22/16 17:59 04/18/16 05:56 LUIGI JAMIL Apr 18, 2016 17:12
--- NOTE | 2016-04-19 18:00 | Discharge Summary ---
Discharge Summary Hospital Course Date of Admission Apr 14, 2016 at 16:02 Date of Discharge Apr 18, 2016 at 17:05 Admitting Diagnosis hyperglycemia/sepsis HPI Lowell Gutiérrez is a 65 year old male who was admitted on Apr 14, 2016 at 16:02 for Hyperglycemia/Sepsis Hospital Course [id number] Discharge Discharge Disposition Patient was discharged to SNF/Subacute Facility(03) Discharge Diagnoses: [place] NP Apr 19, 2016 18:00
--- NOTE | 2016-04-19 23:47 | Discharge Summary 2 SIG ---
DATE OF ADMISSION: 04/14/2016 DATE OF DISCHARGE: 04/18/2016 "NOTE: INCOMPLETE DICTATION" CONSULTANTS: 1. Evgeny Burton M.D. 2. Rocco Perez M.D. 3. Byron Lowe M.D. 4. Tyler Lopez D.O. [facility] COURSE: Lindsay Salter M.D. I have been assigned to dictate discharge summary on this account and I was not involved in the patient's management. Little Petit N.P. DR: EDIS JOB#: [id number] CC:
--- NOTE | 2016-04-20 02:27 | Discharge Summary 2 SIG ---
DATE OF ADMISSION: 04/14/2016 DATE OF DISCHARGE: 04/18/2016 CONSULTANTS: 1. Rocco Perez M.D. 2. Evgeny uBrton M.D. 3. Byron Lowe M.D. 4. Tyler Lopez D.O. BRIEF HOSPITAL COURSE: The patient is a 65-year-old male with history of CVA, hypertension, diabetes mellitus, sent in from residential for altered level of consciousness, increased blood glucose and decreased oxygen saturation with fevers. EMS transported the patient with O2 saturation of 91. The patient was obtunded. He was admitted to [facility] for sepsis and uncontrolled DM and possible hyperosmolar coma. He was given IV hydration with Accu-Cheks and G-tube flush with free water. Dr. Lowe was consulted for diabetes management. Lactic acid was high at 3.0. The patient was given sliding scale of insulin and Levemir was started 20 units b.i.d. Hemoglobin A1c was 9.1. Dr. Perez was consulted for management of sepsis and was started on vancomycin and Zosyn. Blood culture did not isolate any growth. Influenza A and B were negative. Dr. Burton was consulted for electrolyte abnormalities and evaluation of renal failure. The patient was given supplements. Hypernatremia improved. The patient's mental status improved and the patient was discharged to [facility]. FINAL DIAGNOSES: 1. Diabetes mellitus out of control with lactic acidosis possible hyperosmolar coma, resolved. 2. Sepsis. 3. Acute hypernatremia. 4. Post stroke with aphasia. 5. Acute metabolic encephalopathy, present on admission, resolving. 6. Pneumonia. 7. Acute kidney injury. 8. Dysphagia with gastrostomy tube. 9. Sacral deep tissue injury and left trochanter full-thickness scar tissue, present on admission. Lindsay Salter M.D. I have been assigned to dictate discharge summary on this account and I was not involved in the patient's management. Little Petit N.P. DR: KARENA JOB#: [id number] CC:
== END 2016-04-18 17:05 | DRG 871 ==
LOC: ENRESERVTM → ENRESERV → ENRESERVDT → EDBD 13:12 → EMR 13:30 → 2W 16:02 → EDBEDREQ 04-15 05:57 → 4W 04-17 06:17
DX: A41.9 Sepsis, unspecified organism (principal); J18.9 Pneumonia, unspecified organism; E11.01 Type 2 diabetes mellitus with hyperosmolarity with coma; E87.0 Hyperosmolality and hypernatremia; L89.159 Pressure ulcer of sacral region, unspecified stage; I69.320 Aphasia following cerebral infarction; N39.0 Urinary tract infection, site not specified; Z43.1 Encounter for attention to gastrostomy; E11.65 Type 2 diabetes mellitus with hyperglycemia; D64.9 Anemia, unspecified; R13.10 Dysphagia, unspecified; N28.9 Disorder of kidney and ureter, unspecified
CPT/HCPCS: 36415; 71010; 80053; 80061; 80202; 81003; 82550; 82962; 82977; 83036; 83605; 83735; 83880; 84100; 84443; 84484; 84550; 85007; 85025; 85610; 85730; 86140; 86710; 87040; 87081; 93005; 94664; 94760; J1815; S5561

== ENCOUNTER 2016-04-25 12:16 | Inpatient (IN) | payer MEDICARE, MEDICAID ==
[~2016-04-25] VITALS: Ht 162.6 cm; Wt 65.3 kg
[~2016-04-25 12:16] MED LIST: ARICEPT10 MG GT; ASPIRIN81 MG GT; LEVEMIR FL100 UNIT/1 SUBQ; MAGNESIUM OXID400 M1 GT; MULTIVITAMINS1 EAC2 GT; PANTOPRAZOLE SO40 MG GT; ZOSYN 3.373.375 GM/1 IVPB
[2016-04-25] MEDS ORDERED: DuoNeb 0.5-3(2.5)mg/3ml neb HHN PRN (16:45)
[2016-04-25] MEDS ORDERED: Nitroglycerin Subl 0.4mg tab (Bottle Of 25) SL PRN (16:45)
[2016-04-25] MEDS ORDERED: Mylanta II UD 30ml ORAL PRN (16:45)
[2016-04-25] MEDS ORDERED: Miralax 17gm pkt ORAL PRN (16:45)
[2016-04-25 20:00] VITALS: BP 114/77
[2016-04-25] MEDS: Cefepime HCl 1 GM in D5W 55 ML IV SCH (22:22)
[2016-04-25] MEDS: NovoLOG Insulin Flexpen SUBQ SCH (22:24)
[2016-04-25] MEDS: Heparin 5000 units/ml inj SUBQ SCH (22:26)
--- NOTE | 2016-04-25 23:39 | History & Physical ---
History and Physical History & Physicial The patient was seen and examined at bedside and all new and available data was reviewed in the patients chart.. Last 24 Hour Vital Signs Date Time Temp Pulse Resp B/P Pulse Ox O2 Delivery O2 Flow Rate FiO2 04/25/16 23:39 101 20 18 Nasal Cannula 2.0 28 04/25/16 23:31 98 18 97 Nasal Cannula 2.0 28 04/25/16 20:10 94 Nasal Cannula 2.0 28 04/25/16 20:10 Nasal Cannula 2.0 28 04/25/16 20:10 97 Nasal Cannula 2.0 28 04/25/16 20:06 94 20 97 Nasal Cannula 2.0 28 04/25/16 20:06 96 20 97 Nasal Cannula 2.0 28 04/25/16 20:00 98.6 99 19 114/77 Nasal Cannula 2.0 97 04/25/16 20:00 97 (Patient was seen earlier today. Signature timestamp does not reflect patient encounter time) Blake Amaya MD, MD Apr 25, 2016 23:39
[2016-04-26 00:43] VITALS: BP 126/77
--- NOTE | 2016-04-26 02:48 | History and Physical Report ---
DATE OF ADMISSION: 04/25/2016 CHIEF COMPLAINT: A transfer from nursing facility at [facility] due to the hypoxemia, generalized weakness, tachycardia, and elevated blood glucose level of 576. HISTORY OF PRESENT ILLNESS: This is a 65 years old gentleman with past medical history significant for CVA, diabetes type 2, hypertension, and dysphagia, status post PEG placement, who was presented to the hospital from a nursing facility, [facility] and after was noted to be tachycardic with a heart rate of 136 and was noted to be elevated blood glucose of 576 and the patient has general weakness. The patient was recently admitted to [facility] on 04/15/2016 due to the altered mental status. At that time, the patient was noted to have elevated blood glucose level high and the patient was noted to be obtunded and it is unclear how his baseline is. At that time, the patient subsequently was admitted to the hospital with sepsis with uncontrolled diabetes and possible hyperosmolar coma. The patient's status gradually improved and subsequently was transferred back to the nursing facility to be followed as outpatient. MEDICATIONS: Prior to admission, significant for aspirin, Aricept, Levemir insulin 20 units every 12 hours, magnesium oxide, multivitamin, Protonix, and Zosyn. ALLERGIES: No known drug allergies. SOCIAL HISTORY: No smoking, alcohol, or drugs. FAMILY HISTORY: Noncontributory. REVIEW OF SYSTEMS: Very limited secondary to the patient's status. The patient is nonverbal, aphasic, and denies any chest pain, shortness of breath at this time. Complains about generalized abdominal pain. PHYSICAL EXAMINATION: VITAL SIGNS: Vital signs upon arrival to [facility] is significant for temperature 98.6, pulse of 97, respirations 19, and blood pressure 114/77. GENERAL: The patient is awake, responsive, nonverbal, however, cannot follow commands. He is aphasic. HEENT: Pupils are reactive to light. Anicteric. NECK: Supple. No JVD. LUNGS: Good air entry. Poor inspiratory effort. Decreased air in the bases. No wheezes or rales. HEART: S1 and S2. Regular rhythm. No murmur or gallops. Distant heart sounds. ABDOMEN: Soft and nondistended. General tenderness. Percutaneous endoscopic gastrostomy site is clean. EXTREMITIES: No cyanosis, clubbing, or edema. NEUROLOGIC: Cranial nerves II through XII are grossly intact. The patient is moving extremities very slowly. Gait was not assessed due to the patient's status. LABORATORY AND DIAGNOSTIC DATA: Laboratory from [facility], was noted to be urinalysis, urine glucose is +3, ketones negative, pH is 6.0, negative nitrites, +1 protein, and positive leukocytes. The patient's WBC of 19.8, hemoglobin of 13, hematocrit 39, and platelets 290,000. Sodium 149, potassium 3.9, chloride 115, bicarbonate 27, BUN is 24, and creatinine is 1.05. Troponin less than 0.20. Lactic acid is 1.9. Blood glucose level random was noted to be in the range of 284, 412, and 476. The patient had a chest x-ray done at [place], which noted to be increased interstitial markings of the right lower lobe, likely secondary to the infiltrate versus atelectasis, atherosclerotic calcification seen of the aorta, degenerative changes of the osteo structure, the heart size is within normal, costophrenic angles remained sharp, no pleural effusion seen. The cardiac mediastinum and silhouette is normal. EKG shows sinus tachycardia, ventricular rate of 129, no ST elevation was noted, and Q-wave was noted in leads II, III, and aVF. ASSESSMENT: 1. Pneumonia. 2. Diabetes type 2, uncontrolled. 3. Hypertension. 4. History of cerebrovascular accident with aphasia. 5. Tachycardia. 6. Dehydration. 7. Hypernatremia. 8. Pressure ulcer of the right buttock, stage II as well as left buttock, present on admission. 9. Pressure ulcer of the sacral region, stage II, present on admission. 10. Hypertensive heart disease. 11. Chronic kidney disease. PLAN: We started the patient on IV hydration, Accu-Chek with sliding scale, and broad-spectrum antibiotic with cefepime. Resume custodial medications. Discussed with Dr. Salter from Pulmonary/Critical Care. Follow up with the cultures. Repeat chest x-ray. Aggressive IV hydration, and we tried to review the records from the prior admission at [facility]. Code status is Full Code, pulse was noted in the chart and DVT prophylaxis with heparin subcutaneous. Blake Teddy, M.D. DR: PAOLA JOB#: [id number] CC:
[2016-04-26 04:00] VITALS: BP 129/78
[2016-04-26] MEDS: NovoLOG Insulin Flexpen SUBQ SCH ×4 (06:53→22:18)
[2016-04-26 07:20] LABS: BASOPHILS % (AUTO) 0.9 % (0.0-2.0); EOSINOPHILS % (AUTO) 1.8 % (0.0-3.0); LYMPHOCYTES % (AUTO) 29.8 % (20.0-45.0); MEAN CORPUSCULAR HEMOGLOBIN 30.8 PG (27.0-31.0); MEAN CORPUSCULAR HGB CONC 31.8 G/DL (32.0-36.0); MEAN CORPUSCULAR VOLUME 97 FL (80-99); MONOCYTES % (AUTO) 5.4 % (1.0-10.0); PLATELET COUNT 222 K/UL (150-450); RED BLOOD COUNT 3.75 M/UL (4.70-6.10); RED CELL DISTRIBUTION WIDTH 16.2 % (11.6-14.8); WHITE BLOOD COUNT 10.6 K/UL (4.8-10.8)
[2016-04-26 07:49] LABS: ALANINE AMINOTRANSFERASE 11 U/L (3-41); ALBUMIN/GLOBULIN RATIO 0.7 (1.0-2.7); ANION GAP 14 (5-15); ASPARTATE AMINO TRANSFERASE 15 U/L (5-40); CALCIUM 8.6 mg/dL (8.6-10.2); CARBON DIOXIDE 26 mEQ/L (20-30); CHLORIDE 119 mEQ/L (98-107); CREATININE 0.8 mg/dL (0.7-1.2); GLOMERULAR FILTRATION RATE > 60 mL/min (>60); HEMOLYSIS 19; PHOSPHORUS 2.3 mg/dL (2.5-4.8); SODIUM 159 mEQ/L (135-145)
[2016-04-26 07:52] LABS: PROTHROMBIN TIME 10.6 SEC (9.30-11.50)
[2016-04-26 08:00] VITALS: BP 124/80
[2016-04-26] MEDS: Aspirin Baby 81mg GT SCH (08:19)
[2016-04-26] MEDS: Pantoprazole Inj IVP SCH (08:19)
[2016-04-26] MEDS: Magnesium Oxide 400mg tab GT SCH (08:19)
[2016-04-26] MEDS: Donepezil 10mg tab GT SCH (08:19)
[2016-04-26] MEDS: Cefepime HCl 1 GM in D5W 55 ML IV SCH ×2 (08:20→22:17)
[2016-04-26] MEDS: Heparin 5000 units/ml inj SUBQ SCH ×2 (08:27→22:19)
[2016-04-26] MEDS ORDERED: Vancomycin 1250mg/D5W 275ml IVPB ONE ×2 (11:30)
[2016-04-26 12:00] VITALS: BP 118/76
--- NOTE | 2016-04-26 14:53 | Consultation ---
History of Present Illness General Date patient seen: Apr 26, 2016 Referring physician: Dr. butterfield Reason for Consultation: hypoxemia Present Illness HPI 65 year old male with hx of dementia, PEG, recently hospitalized at [facility] for DKA. [facility] for hypoxemia and hyperglycemia. He is transferred to [facility] for further care. Pt looks comfortable, doesn't talk. but seems to understand. Allergies: Coded Allergies: No Known Allergies (Unverified , 04/14/16) Medication History Scheduled Aspirin* (Aspirin*), 81 MG GT DAILY, (Reported) Donepezil Hcl* (Aricept*), 10 MG GT DAILY, (Reported) Insulin Detemir (Levemir Flexpen), 20 UNITS SUBQ Q12HR Magnesium Oxide (Magnesium Oxide), 400 MG GT DAILY, (Reported) Multivitamins* (Multivitamins*), 1 TAB GT DAILY, (Reported) Pantoprazole* (Pantoprazole*), 40 MG GT DAILY, (Reported) Gxwzsvhtfzsf-Zslt-Yqqwagtc,Iso (Zosyn 3.375 Gm Pre Mix-Bag), 3.375 GM IVPB EVERY 8 HOURS Patient History Healthcare decision maker Resuscitation status Full Code Advanced Directive on File Yes Past Medical/Surgical History Past Medical/Surgical History: (1) Diabetes (2) G-tube site cellulitis (3) [facility] resident Review of Systems All Other Systems: negative except mentioned in HPI Physical Exam General Appearance: WD/WN Lines, tubes and drains: peripheral, gtube HEENT: normocephalic, atraumatic Neck: non-tender, normal alignment Respiratory/Chest: chest wall non-tender, lungs clear Breasts: no masses Cardiovascular/Chest: normal peripheral pulses Abdomen: normal bowel sounds, non tender Genitourinary/Rectal: normal genital exam, normal rectal exam Extremities: normal range of motion 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 normal Lymphatic: anterior cervical Last 24 Hour Vital Signs Date Time Temp Pulse Resp B/P Pulse Ox O2 Delivery O2 Flow Rate FiO2 04/26/16 12:00 81 04/26/16 12:00 99.0 86 20 118/76 100 Nasal Cannula 2.0 04/26/16 11:31 91 20 98 Nasal Cannula 2.0 04/26/16 11:25 91 20 99 Nasal Cannula 04/26/16 08:00 87 04/26/16 08:00 99.0 88 22 124/80 100 Nasal Cannula 2.0 04/26/16 07:10 87 20 99 Nasal Cannula 2.0 04/26/16 07:05 87 20 99 Nasal Cannula 2.0 04/26/16 07:04 Nasal Cannula 2.0 04/26/16 07:02 99 Nasal Cannula 2.0 04/26/16 04:00 97.2 91 20 129/78 98 Nasal Cannula 2.0 04/26/16 03:38 88 18 98 Nasal Cannula 2.0 28 04/26/16 03:32 89 18 98 Nasal Cannula 2.0 28 04/26/16 00:43 97.7 96 20 126/77 97 Nasal Cannula 2.0 04/26/16 00:00 99 04/25/16 23:39 101 20 97 Nasal Cannula 2.0 28 04/25/16 23:31 98 18 97 Nasal Cannula 2.0 28 04/25/16 20:10 94 Nasal Cannula 2.0 28 04/25/16 20:10 Nasal Cannula 2.0 28 04/25/16 20:10 97 Nasal Cannula 2.0 28 04/25/16 20:06 94 20 97 Nasal Cannula 2.0 28 04/25/16 20:06 96 20 97 Nasal Cannula 2.0 28 04/25/16 20:00 98.6 99 19 114/77 Nasal Cannula 2.0 97 04/25/16 20:00 97 Intake and Output 04/25/16 04/26/16 19:00 07:00 Intake Total 655 ml Output Total 1200 ml Balance -545 ml IV Total 655 ml Output Urine Total 800 ml Stool Total 400 ml # Bowel Movements 1 Laboratory Tests Test 04/25/16 18:10 04/26/16 02:30 04/26/16 05:25 04/26/16 08:50 Random Vancomycin Level 34.2 ug/mL < 2.0 ug/mL < 2.0 ug/mL Urine Legionella Antigen Pending White Blood Count 10.6 K/UL (4.8-10.8) Red Blood Count 3.75 M/UL (4.70-6.10) L Hemoglobin 11.5 G/DL (14.2-18.0) L Hematocrit 36.3 % (42.0-52.0) L Mean Corpuscular Volume 97 FL (80-99) Mean Corpuscular Hemoglobin 30.8 PG (27.0-31.0) Mean Corpuscular Hemoglobin Concent 31.8 G/DL (32.0-36.0) L Red Cell Distribution Width 16.2 % (11.6-14.8) H Platelet Count 222 K/UL (150-450) Mean Platelet Volume 11.0 FL (6.5-10.1) H Neutrophils (%) (Auto) 62.0 % (45.0-75.0) Lymphocytes (%) (Auto) 29.8 % (20.0-45.0) Monocytes (%) (Auto) 5.4 % (1.0-10.0) Eosinophils (%) (Auto) 1.8 % (0.0-3.0) Basophils (%) (Auto) 0.9 % (0.0-2.0) Prothrombin Time 10.6 SEC (9.30-11.50) Prothromb Time International Ratio 1.0 (0.9-1.1) Activated Partial Thromboplast Time 22 SEC (23-33) L Sodium Level 159 mEQ/L (135-145) H Potassium Level 4.0 mEQ/L (3.4-4.9) Chloride Level 119 mEQ/L (98-107) H Carbon Dioxide Level 26 mEQ/L (20-30) Anion Gap 14 (5-15) Blood Urea Nitrogen 17 mg/dL (7-23) Creatinine 0.8 mg/dL (0.7-1.2) Estimat Glomerular Filtration Rate > 60 mL/min (>60) Glucose Level 309 mg/dL (74-106) H Calcium Level 8.6 mg/dL (8.6-10.2) Phosphorus Level 2.3 mg/dL (2.5-4.8) L Magnesium Level 2.0 mg/dL (1.7-2.5) Total Bilirubin 0.4 mg/dL (0.0-1.2) Aspartate Amino Transf (AST/SGOT) 15 U/L (5-40) Alanine Aminotransferase (ALT/SGPT) 11 U/L (3-41) Alkaline Phosphatase 87 U/L (40-129) Total Protein 7.0 g/dL (6.6-8.7) Albumin 3.0 g/dL (3.5-5.2) L Globulin 4.0 g/dL Albumin/Globulin Ratio 0.7 (1.0-2.7) L Height (Feet): 5 Height (Inches): 4.00 Weight (Pounds): 144 Medications Current Medications Medications (Trade) Dose Ordered Sig/Xochilt Route PRN Reason Start Time Stop Time Status Last Admin Dose Admin Acetaminophen (Tylenol) 650 mg Q4H PRN ORAL fever 04/25/16 16:45 05/25/16 16:44 Al Hydroxide/Mg Hydroxide (Mylanta II) 30 ml Q6H PRN ORAL dyspepsia 04/25/16 16:45 05/25/16 16:44 Albuterol/ Ipratropium 3 ml 3 ml Q4H PRN HHN Shortness of Breath 04/25/16 16:45 04/30/16 16:44 Aspirin (ASA) 81 mg DAILY GT 04/26/16 09:00 05/26/16 08:59 04/26/16 08:19 Cefepime HCl/ Dextrose (Maxipime/D5W) 55 ml @ 110 mls/hr EVERY 12 HOURS IV 04/25/16 21:00 05/02/16 20:59 04/26/16 08:20 Dextrose (D5W 1000ml) 1,000 ml @ 75 mls/hr [id number] IV 04/26/16 14:30 05/26/16 14:29 04/26/16 14:30 Dextrose (Dextrose 50%) STAT PRN IV Hypoglycemia 04/25/16 16:45 05/25/16 16:44 Donepezil HCl (Aricept) 10 mg DAILY GT 04/26/16 09:00 05/26/16 08:59 04/26/16 08:19 Heparin Sodium (Porcine) (Heparin 5000 units/ml) 5,000 units EVERY 12 HOURS SUBQ 04/25/16 21:00 05/25/16 20:59 04/26/16 08:27 Insulin Aspart (NovoLOG) BEFORE MEALS AND HS SUBQ 04/25/16 21:00 05/25/16 20:59 04/26/16 11:50 Magnesium Oxide (Mag-Ox 400mg) 400 mg DAILY GT 04/26/16 09:00 05/26/16 08:59 04/26/16 08:19 Nitroglycerin (Ntg) 0.4 mg Q5M PRN SL Prn Chest Pain 04/25/16 16:45 05/25/16 16:44 Ondansetron HCl (Zofran) 4 mg Q6H PRN IVP Nausea & Vomiting 04/25/16 16:45 05/25/16 16:44 Pantoprazole 40 mg 40 mg DAILY IVP 04/26/16 09:00 05/26/16 08:59 04/26/16 08:19 Polyethylene Glycol (Miralax) 17 gm DAILYPRN PRN ORAL Constipation 04/25/16 16:45 05/25/16 16:44 Temazepam (Restoril) 15 mg HSPRN PRN ORAL Insomnia 04/25/16 16:45 05/02/16 16:44 Vancomycin HCl (Vanco rx to dose) 1 ea DAILY PRN MISC Per rx protocol 04/25/16 16:45 05/25/16 16:44 Vancomycin HCl 1 gm/Dextrose 275 ml @ 183.708 mls/hr Q12HR@1100,2300 IVPB 04/26/16 23:00 05/01/16 22:59 Assessment/Plan Problem List: (1) Sepsis ICD Codes: A41.9 - Sepsis, unspecified organism SNOMED: 49991086 (2) Renal insufficiency ICD Codes: N28.9 - Disorder of kidney and ureter, unspecified SNOMED: 245741051 (3) Hyperglycemia ICD Codes: R73.9 - Hyperglycemia, unspecified SNOMED: 08307943 (4) Diabetes ICD Codes: E11.9 - Type 2 diabetes mellitus without complications SNOMED: 71100692 (5) jail resident ICD Codes: Z59.3 - Problems related to living in residential institution SNOMED: 420995016 Assessment/Plan IV fluids check electrolytes repeat cxr wound care check cultures sliding scale and diabetic diet dvt prophylaxis LUIGI JAMIL Apr 26, 2016 14:53
--- NOTE | 2016-04-26 15:06 | Consultation ---
Consult Note Consult Note ID CONSULT: Zulma# [id number] Assessment/Plan ASSESSMENT: 65 y/o male with: // Probable recurrent/persistent HCAP - SCx, legionella UAg pending - CXR 04/26: pending - CXR 04/16: New or increased right basilar consolidation, consistent with pneumonia. Left basilar atelectasis persists // Possible sepsis // Afebrile without leukocytosis // DM2 with hyperglycemia - HbA1c 9.1% // Hypernatremia / electrolyte imbalance // h/o CVA // Dysphagia SP PEG // [facility] resident // VRE colonized // NKDA // Full Code PLAN: - continue empiric IV vancomycin, cefepime d# 2, add levaquin d# 1 to complete HCAP coverage ( 04/21 SP IV vancomycin, zosyn d# ) - f/u cultures - monitor CBC, temperatures - monitor BMP - monitor CXR Thanks! Will follow ANTOINETTE TOURE Apr 26, 2016 15:06
--- NOTE | 2016-04-26 15:31 | Internal Med Progress Note ---
Subjective Physician Name Blake Espinal Attending Physician Blake Espinal MD Current Medications Medications (Trade) Dose Ordered Sig/Xochilt Route PRN Reason Start Time Stop Time Status Last Admin Dose Admin Acetaminophen (Tylenol) 650 mg Q4H PRN ORAL fever 04/25/16 16:45 05/25/16 16:44 Al Hydroxide/Mg Hydroxide (Mylanta II) 30 ml Q6H PRN ORAL dyspepsia 04/25/16 16:45 05/25/16 16:44 Albuterol/ Ipratropium 3 ml 3 ml Q4H PRN HHN Shortness of Breath 04/25/16 16:45 04/30/16 16:44 Aspirin (ASA) 81 mg DAILY GT 04/26/16 09:00 05/26/16 08:59 04/26/16 08:19 Cefepime HCl/ Dextrose (Maxipime/D5W) 55 ml @ 110 mls/hr EVERY 12 HOURS IV 04/25/16 21:00 05/02/16 20:59 04/26/16 08:20 Dextrose (D5W 1000ml) 1,000 ml @ 75 mls/hr [id number] IV 04/26/16 14:30 05/26/16 14:29 04/26/16 14:30 Dextrose (Dextrose 50%) STAT PRN IV Hypoglycemia 04/25/16 16:45 05/25/16 16:44 Donepezil HCl (Aricept) 10 mg DAILY GT 04/26/16 09:00 05/26/16 08:59 04/26/16 08:19 Heparin Sodium (Porcine) (Heparin 5000 units/ml) 5,000 units EVERY 12 HOURS SUBQ 04/25/16 21:00 05/25/16 20:59 04/26/16 08:27 Insulin Aspart (NovoLOG) BEFORE MEALS AND HS SUBQ 04/25/16 21:00 05/25/16 20:59 04/26/16 11:50 Levofloxacin (Levaquin) 750 mg DAILY PEG 04/26/16 15:00 05/03/16 14:59 UNV Magnesium Oxide (Mag-Ox 400mg) 400 mg DAILY GT 04/26/16 09:00 05/26/16 08:59 04/26/16 08:19 Nitroglycerin (Ntg) 0.4 mg Q5M PRN SL Prn Chest Pain 04/25/16 16:45 05/25/16 16:44 Ondansetron HCl (Zofran) 4 mg Q6H PRN IVP Nausea & Vomiting 04/25/16 16:45 05/25/16 16:44 Pantoprazole 40 mg 40 mg DAILY IVP 04/26/16 09:00 05/26/16 08:59 04/26/16 08:19 Polyethylene Glycol (Miralax) 17 gm DAILYPRN PRN ORAL Constipation 04/25/16 16:45 05/25/16 16:44 Temazepam (Restoril) 15 mg HSPRN PRN ORAL Insomnia 04/25/16 16:45 05/02/16 16:44 Vancomycin HCl (Vanco rx to dose) 1 ea DAILY PRN MISC Per rx protocol 04/25/16 16:45 05/25/16 16:44 Vancomycin HCl 1 gm/Dextrose 275 ml @ 183.708 mls/hr Q12HR@1100,2300 IVPB 04/26/16 23:00 05/01/16 22:59 Allergies: Coded Allergies: No Known Allergies (Unverified , 04/14/16) Subjective less responsive, sleepy, open eyes, NAD Objective Last Vital Signs Date Time Temp Pulse Resp B/P Pulse Ox O2 Delivery O2 Flow Rate FiO2 04/26/16 15:21 79 20 100 Nasal Cannula 2.0 04/26/16 12:00 99.0 118/76 04/26/16 03:38 28 Laboratory Tests Test 04/25/16 18:10 04/26/16 02:30 04/26/16 05:25 04/26/16 08:50 Random Vancomycin Level 34.2 ug/mL < 2.0 ug/mL < 2.0 ug/mL Urine Legionella Antigen Pending White Blood Count 10.6 K/UL (4.8-10.8) Red Blood Count 3.75 M/UL (4.70-6.10) L Hemoglobin 11.5 G/DL (14.2-18.0) L Hematocrit 36.3 % (42.0-52.0) L Mean Corpuscular Volume 97 FL (80-99) Mean Corpuscular Hemoglobin 30.8 PG (27.0-31.0) Mean Corpuscular Hemoglobin Concent 31.8 G/DL (32.0-36.0) L Red Cell Distribution Width 16.2 % (11.6-14.8) H Platelet Count 222 K/UL (150-450) Mean Platelet Volume 11.0 FL (6.5-10.1) H Neutrophils (%) (Auto) 62.0 % (45.0-75.0) Lymphocytes (%) (Auto) 29.8 % (20.0-45.0) Monocytes (%) (Auto) 5.4 % (1.0-10.0) Eosinophils (%) (Auto) 1.8 % (0.0-3.0) Basophils (%) (Auto) 0.9 % (0.0-2.0) Prothrombin Time 10.6 SEC (9.30-11.50) Prothromb Time International Ratio 1.0 (0.9-1.1) Activated Partial Thromboplast Time 22 SEC (23-33) L Sodium Level 159 mEQ/L (135-145) H Potassium Level 4.0 mEQ/L (3.4-4.9) Chloride Level 119 mEQ/L (98-107) H Carbon Dioxide Level 26 mEQ/L (20-30) Anion Gap 14 (5-15) Blood Urea Nitrogen 17 mg/dL (7-23) Creatinine 0.8 mg/dL (0.7-1.2) Estimat Glomerular Filtration Rate > 60 mL/min (>60) Glucose Level 309 mg/dL (74-106) H Calcium Level 8.6 mg/dL (8.6-10.2) Phosphorus Level 2.3 mg/dL (2.5-4.8) L Magnesium Level 2.0 mg/dL (1.7-2.5) Total Bilirubin 0.4 mg/dL (0.0-1.2) Aspartate Amino Transf (AST/SGOT) 15 U/L (5-40) Alanine Aminotransferase (ALT/SGPT) 11 U/L (3-41) Alkaline Phosphatase 87 U/L (40-129) Total Protein 7.0 g/dL (6.6-8.7) Albumin 3.0 g/dL (3.5-5.2) L Globulin 4.0 g/dL Albumin/Globulin Ratio 0.7 (1.0-2.7) L Intake and Output 04/25/16 04/26/16 19:00 07:00 Intake Total 655 ml Output Total 1200 ml Balance -545 ml IV Total 655 ml Output Urine Total 800 ml Stool Total 400 ml # Bowel Movements 1 Objective GENERAL: less responsive, nonverbal, sleepy HEENT: Pupils are reactive to light. Anicteric. NECK: Supple. No JVD. LUNGS: Poor inspiratory effort. Decreased air in the bases. No wheezes or rales. HEART: S1 and S2. Regular rhythm. No murmur Distant heart sounds. ABDOMEN: Soft and nondistended. General tenderness. Percutaneous endoscopic gastrostomy site is clean. : Zimmerman cath EXTREMITIES: No cyanosis, clubbing, or edema. NEUROLOGIC: Cranial nerves II through XII are grossly intact. The patient is moving extremities very slowly. Gait was not assessed due to the patient's status. Assessment/Plan Assessment/Plan ASSESSMENT: 1. Pneumonia. 2. Diabetes type 2, uncontrolled. 3. Hypertension. 4. History of cerebrovascular accident with aphasia. 5. Tachycardia. 6. Dehydration. 7. Hypernatremia. 8. Pressure ulcer of the right buttock, stage II as well as left buttock, present on admission. 9. Pressure ulcer of the sacral region, stage II, present on admission. 10. Hypertensive heart disease. 11. Chronic kidney disease. PLAN: IV hydration, Accu-Chek with sliding scale Broad-spectrum antibiotic with cefepime. Discussed with Dr. Salter from Pulmonary/Critical Care. Follow up with the cultures. Repeat chest x-ray. Code status is Full Code and DVT prophylaxis with heparin subcutaneous. F/U with culture and Labs Blake Espinal MD Apr 26, 2016 15:31
[2016-04-26 16:00] VITALS: BP 120/71
[2016-04-26 20:00] VITALS: BP 116/79
--- NOTE | 2016-04-26 20:59 | Consultation ---
DATE OF CONSULTATION: 04/26/2016 INFECTIOUS DISEASE CONSULTATION: REQUESTING PHYSICIAN: Blake Espinal M.D. REASON FOR CONSULTATION: Pneumonia. HISTORY OF PRESENT ILLNESS: This is a 65-year-old diabetic male with a history of stroke and resident in [place] [facility] admitted on 04/25/2016 with hypoxia, tachycardia, and elevated glucose levels. A chest x-ray is pending. The patient is currently saturating 100% on two liters nasal cannula. He is afebrile without leukocytosis. The sputum culture and Legionella urine antigens are pending. He has been started on empiric vancomycin and cefepime and ID now consulted to assist in management. PAST MEDICAL HISTORY: 1. Diabetes, hemoglobin A1c 9.1%. 2. History of stroke. 3. Dysphagia. 4. Hypertension. PAST SURGICAL HISTORY: PEG tube placement. MEDICATIONS: 1. Vancomycin day #2. 2. Cefepime day # 2. 3. Aricept. 4. Aspirin. 5. Subcutaneous heparin. ALLERGIES: No known drug allergies. SOCIAL HISTORY: The patient is resident of a [place] [facility]. No active tobacco, alcohol, or illicit drug abuse. FAMILY HISTORY: Unknown. REVIEW OF SYSTEMS: Unable to obtain. PHYSICAL EXAMINATION: VITAL SIGNS: Maximum temperature 99 degrees, blood pressure 118/76, heart rate 80, respiratory rate 20, and saturating 100% on two liters nasal cannula. GENERAL: No apparent distress. Toxic appearing. CARDIOVASCULAR: Regular rate and rhythm. No murmurs. PULMONARY: Coarse breath sounds bilaterally. ABDOMEN: Bowel sounds present. Soft, nondistended, and nontender. PEG tube in place. EXTREMITIES: No edema. LABORATORY DATA: White blood cell count 10.6, hemoglobin 11.5, and platelets 222,000. Sodium 159, potassium 4, chloride 119, bicarb 26, BUN 17, and creatinine 0.8. Liver function tests within normal limits. MICROBIOLOGY: 1. On 04/25/2016, Legionella urine antigen pending. 2. 04/25/2016, sputum culture pending. IMAGING: On 04/26/2018, chest x-ray pending. ASSESSMENT: 1. Probable recurrent or persistent healthcare associated pneumonia. Sputum culture and Legionella urine antigens are pending as well as chest x-ray. Most recent chest x-ray on 04/16/2016 showed a new increased right basilar consolidation consistent with pneumonia as well as left basilar atelectasis. 2. Possible sepsis. 3. Afebrile without leukocytosis. 4. Diabetes type 2 with hyperglycemia and hemoglobin A1c at 9.1%. 5. Hypernatremia/electrolyte imbalance. 6. History of stroke. 7. Dysphagia, status post percutaneous endoscopic gastrostomy tube placement. 8. pen[facility]entiary resident. 9. Vancomycin-resistant Enterococcus colonized. 10. No known drug allergies. 11. Full Code. PLAN: 1. Continue empiric IV vancomycin and cefepime day #2 and add Levaquin day #1 to complete healthcare associated pneumonia coverage. The patient was recently exposed to vancomycin and Zosyn. 2. Follow up cultures. 3. Monitor CBC and temperatures. 4. Monitor BMP. 5. Monitor chest x-ray. Thank you. We will follow. Pino Celaya M.D. DR: Oscar JOB#: [id number] CC: Blake Espinal M.D.; Fax#: [phone] Sanchez M.D; Fax#: [phone]
[2016-04-26] MEDS ORDERED: Levemir Flexpen SUBQ SCH (21:00)
[2016-04-26] MEDS: Vancomycin 1gm/D5W 275ml IVPB SCH ×2 (23:06)
[2016-04-27] VITALS: BP 113/71
[2016-04-27 04:00] VITALS: BP 101/64
[2016-04-27] MEDS: NovoLOG Insulin Flexpen SUBQ SCH ×4 (05:29→22:03)
[2016-04-27 07:25] LABS: BASOPHILS % (AUTO) 0.9 % (0.0-2.0); EOSINOPHILS % (AUTO) 2.8 % (0.0-3.0); LYMPHOCYTES % (AUTO) 24.3 % (20.0-45.0); MEAN CORPUSCULAR HEMOGLOBIN 30.6 PG (27.0-31.0); MEAN CORPUSCULAR VOLUME 96 FL (80-99); MEAN PLATELET VOLUME 11.1 FL (6.5-10.1); MONOCYTES % (AUTO) 5.5 % (1.0-10.0); NEUTROPHILS % (AUTO) 66.6 % (45.0-75.0); PLATELET COUNT 194 K/UL (150-450); RED BLOOD COUNT 3.47 M/UL (4.70-6.10); RED CELL DISTRIBUTION WIDTH 15.8 % (11.6-14.8)
[2016-04-27 07:28] LABS: ANION GAP 14 (5-15); CALCIUM 8.4 mg/dL (8.6-10.2); CARBON DIOXIDE 27 mEQ/L (20-30); CHLORIDE 107 mEQ/L (98-107); CREATININE 0.6 mg/dL (0.7-1.2); GLOMERULAR FILTRATION RATE > 60 mL/min (>60); HEMOLYSIS 4; PHOSPHORUS 1.8 mg/dL (2.5-4.8); POTASSIUM 3.6 mEQ/L (3.4-4.9); SODIUM 148 mEQ/L (135-145)
[2016-04-27 07:33] LABS: AMMONIA 33 umol/L (16-60)
[2016-04-27 08:06] VITALS: BP 107/70
[2016-04-27] MEDS: Pantoprazole Inj IVP SCH (08:43)
[2016-04-27] MEDS: Cefepime HCl 1 GM in D5W 55 ML IV SCH ×2 (08:43→22:02)
[2016-04-27] MEDS: Magnesium Oxide 400mg tab GT SCH (08:44)
[2016-04-27] MEDS: Aspirin Baby 81mg GT SCH (08:44)
[2016-04-27] MEDS: Donepezil 10mg tab GT SCH (08:44)
[2016-04-27] MEDS: Heparin 5000 units/ml inj SUBQ SCH ×2 (08:44→22:05)
[2016-04-27] MEDS ORDERED: Levemir Flexpen SUBQ SCH ×3 (09:00→21:00)
[2016-04-27] MEDS: Vancomycin 1gm/D5W 275ml IVPB SCH ×2 (11:35)
--- NOTE | 2016-04-27 11:39 | Pulmonology Progress Note ---
Assessment/Plan Problems: (1) Sepsis (2) Renal insufficiency (3) Hyperglycemia (4) Diabetes (5) [facility] resident Assessment/Plan improving check cultures sliding scale endo evaluation tolerating feeding med/surg Subjective ROS Limited/Unobtainable: No Interval Events: awake, comfortable Allergies: Coded Allergies: No Known Allergies (Unverified , 04/14/16) Objective Last 24 Hour Vital Signs Date Time Temp Pulse Resp B/P Pulse Ox O2 Delivery O2 Flow Rate FiO2 04/27/16 08:06 97.0 79 18 107/70 99 Nasal Cannula 2.0 04/27/16 08:03 76 04/27/16 07:36 77 20 99 Nasal Cannula 2.0 04/27/16 07:36 99 Nasal Cannula 2.0 04/27/16 07:35 Nasal Cannula 2.0 28 04/27/16 07:31 77 20 99 Nasal Cannula 2.0 04/27/16 04:00 97.5 67 18 101/64 100 Room Air 2.0 04/27/16 04:00 77 04/27/16 03:24 Nasal Cannula 2.0 28 04/27/16 03:24 Nasal Cannula 2.0 28 04/27/16 00:00 97.3 82 20 113/71 99 Room Air 04/27/16 00:00 82 04/26/16 23:15 80 18 98 Nasal Cannula 2.0 28 04/26/16 23:10 78 18 98 Nasal Cannula 2.0 28 04/26/16 20:00 83 04/26/16 20:00 97.5 79 18 116/79 95 Room Air 04/26/16 19:59 78 18 98 Nasal Cannula 2.0 28 04/26/16 19:50 Nasal Cannula 2.0 28 04/26/16 19:50 75 18 97 Nasal Cannula 2.0 28 04/26/16 19:50 97 Nasal Cannula 2.0 28 04/26/16 16:00 97.5 74 18 120/71 Nasal Cannula 2.0 99 04/26/16 16:00 82 04/26/16 15:21 79 20 100 Nasal Cannula 2.0 04/26/16 15:16 79 20 100 Nasal Cannula 2.0 04/26/16 12:00 81 04/26/16 12:00 99.0 86 20 118/76 100 Nasal Cannula 2.0 Intake and Output 04/26/16 04/27/16 19:00 07:00 Intake Total 1386.666 ml 1267.416 ml Output Total 350 ml 1100 ml Balance 1036.666 ml 167.416 ml Intake Oral 240 ml Free Water 60 ml IV Total 1026.666 ml 1227.416 ml Tube Feeding 60 ml 40 ml Output Urine Total 350 ml 1100 ml # Bowel Movements 4 1 General Appearance: WD/WN HEENT: normocephalic, atraumatic Respiratory/Chest: chest wall non-tender, lungs clear Cardiovascular: normal peripheral pulses, normal rate Abdomen: normal bowel sounds, soft, non tender Genitourinary: normal external genitalia Extremities: no cyanosis Skin: no rash Laboratory Tests 04/27/16 05:30: White Blood Count 7.0, Red Blood Count 3.47L, Hemoglobin 10.6L, Hematocrit 33.2L , Mean Corpuscular Volume 96, Mean Corpuscular Hemoglobin 30.6, Mean Corpuscular Hemoglobin Concent 32.0, Red Cell Distribution Width 15.8H, Platelet Count 194, Mean Platelet Volume 11.1H, Neutrophils (%) (Auto) 66.6, Lymphocytes (%) (Auto) 24.3, Monocytes (%) (Auto) 5.5, Eosinophils (%) (Auto) 2.8, Basophils (%) (Auto) 0.9, Sodium Level 148H, Potassium Level 3.6, Chloride Level 107, Carbon Dioxide Level 27, Anion Gap 14, Blood Urea Nitrogen 13, Creatinine 0.6L, Estimat Glomerular Filtration Rate > 60, Glucose Level 347H, Calcium Level 8.4L, Phosphorus Level 1.8L, Magnesium Level 2.0, Ammonia 33 Current Medications Medications (Trade) Dose Ordered Sig/Xochilt Route PRN Reason Start Time Stop Time Status Last Admin Dose Admin Acetaminophen (Tylenol) 650 mg Q4H PRN ORAL fever 04/25/16 16:45 05/25/16 16:44 Al Hydroxide/Mg Hydroxide (Mylanta II) 30 ml Q6H PRN ORAL dyspepsia 04/25/16 16:45 05/25/16 16:44 Albuterol/ Ipratropium 3 ml 3 ml Q4H PRN HHN Shortness of Breath 04/25/16 16:45 04/30/16 16:44 Aspirin (ASA) 81 mg DAILY GT 04/26/16 09:00 05/26/16 08:59 04/27/16 08:44 Cefepime HCl/ Dextrose (Maxipime/D5W) 55 ml @ 110 mls/hr EVERY 12 HOURS IV 04/25/16 21:00 05/02/16 20:59 04/27/16 08:43 Dextrose (D5W 1000ml) 1,000 ml @ 75 mls/hr [id number] IV 04/26/16 14:30 05/26/16 14:29 04/27/16 05:24 Dextrose (Dextrose 50%) STAT PRN IV Hypoglycemia 04/25/16 16:45 05/25/16 16:44 Donepezil HCl (Aricept) 10 mg DAILY GT 04/26/16 09:00 05/26/16 08:59 04/27/16 08:44 Heparin Sodium (Porcine) (Heparin 5000 units/ml) 5,000 units EVERY 12 HOURS SUBQ 04/25/16 21:00 05/25/16 20:59 04/27/16 08:44 Insulin Aspart (NovoLOG) BEFORE MEALS AND HS SUBQ 04/25/16 21:00 05/25/16 20:59 04/27/16 05:29 Insulin Detemir (Levemir) 27 units EVERY 12 HOURS SUBQ 04/27/16 09:00 05/27/16 08:59 04/27/16 09:50 Levofloxacin (Levaquin) 750 mg DAILY GT 04/26/16 16:00 05/03/16 15:59 04/27/16 08:44 Magnesium Oxide (Mag-Ox 400mg) 400 mg DAILY GT 04/26/16 09:00 05/26/16 08:59 04/27/16 08:44 Nitroglycerin (Ntg) 0.4 mg Q5M PRN SL Prn Chest Pain 04/25/16 16:45 05/25/16 16:44 Ondansetron HCl (Zofran) 4 mg Q6H PRN IVP Nausea & Vomiting 04/25/16 16:45 05/25/16 16:44 Pantoprazole 40 mg 40 mg DAILY IVP 04/26/16 09:00 05/26/16 08:59 04/27/16 08:43 Polyethylene Glycol (Miralax) 17 gm DAILYPRN PRN ORAL Constipation 04/25/16 16:45 05/25/16 16:44 Temazepam (Restoril) 15 mg HSPRN PRN ORAL Insomnia 04/25/16 16:45 05/02/16 16:44 Vancomycin HCl (Vanco rx to dose) 1 ea DAILY PRN MISC Per rx protocol 04/25/16 16:45 05/25/16 16:44 Vancomycin HCl 1 gm/Dextrose 275 ml @ 183.708 mls/hr Q12HR@1100,2300 IVPB 04/26/16 23:00 05/01/16 22:59 04/27/16 11:35 LUIGI JAMIL Apr 27, 2016 11:39
[2016-04-27 12:02] VITALS: BP 111/70
--- NOTE | 2016-04-27 12:32 | Internal Med Progress Note ---
Subjective Physician Name Blake Espinal Attending Physician Blake Espinal MD Current Medications Medications (Trade) Dose Ordered Sig/Xochilt Route PRN Reason Start Time Stop Time Status Last Admin Dose Admin Acetaminophen (Tylenol) 650 mg Q4H PRN ORAL fever 04/25/16 16:45 05/25/16 16:44 Al Hydroxide/Mg Hydroxide (Mylanta II) 30 ml Q6H PRN ORAL dyspepsia 04/25/16 16:45 05/25/16 16:44 Albuterol/ Ipratropium 3 ml 3 ml Q4H PRN HHN Shortness of Breath 04/25/16 16:45 04/30/16 16:44 Aspirin (ASA) 81 mg DAILY GT 04/26/16 09:00 05/26/16 08:59 04/27/16 08:44 Cefepime HCl/ Dextrose (Maxipime/D5W) 55 ml @ 110 mls/hr EVERY 12 HOURS IV 04/25/16 21:00 05/02/16 20:59 04/27/16 08:43 Dextrose (D5W 1000ml) 1,000 ml @ 75 mls/hr [id number] IV 04/26/16 14:30 05/26/16 14:29 04/27/16 05:24 Dextrose (Dextrose 50%) STAT PRN IV Hypoglycemia 04/25/16 16:45 05/25/16 16:44 Donepezil HCl (Aricept) 10 mg DAILY GT 04/26/16 09:00 05/26/16 08:59 04/27/16 08:44 Heparin Sodium (Porcine) (Heparin 5000 units/ml) 5,000 units EVERY 12 HOURS SUBQ 04/25/16 21:00 05/25/16 20:59 04/27/16 08:44 Insulin Aspart (NovoLOG) BEFORE MEALS AND HS SUBQ 04/25/16 21:00 05/25/16 20:59 04/27/16 12:02 Insulin Detemir (Levemir) 27 units EVERY 12 HOURS SUBQ 04/27/16 09:00 05/27/16 08:59 04/27/16 09:50 Levofloxacin (Levaquin) 750 mg DAILY GT 04/26/16 16:00 05/03/16 15:59 04/27/16 08:44 Magnesium Oxide (Mag-Ox 400mg) 400 mg DAILY GT 04/26/16 09:00 05/26/16 08:59 04/27/16 08:44 Nitroglycerin (Ntg) 0.4 mg Q5M PRN SL Prn Chest Pain 04/25/16 16:45 05/25/16 16:44 Ondansetron HCl (Zofran) 4 mg Q6H PRN IVP Nausea & Vomiting 04/25/16 16:45 05/25/16 16:44 Pantoprazole 40 mg 40 mg DAILY IVP 04/26/16 09:00 05/26/16 08:59 04/27/16 08:43 Polyethylene Glycol (Miralax) 17 gm DAILYPRN PRN ORAL Constipation 04/25/16 16:45 05/25/16 16:44 Temazepam (Restoril) 15 mg HSPRN PRN ORAL Insomnia 04/25/16 16:45 05/02/16 16:44 Vancomycin HCl (Vanco rx to dose) 1 ea DAILY PRN MISC Per rx protocol 04/25/16 16:45 05/25/16 16:44 Vancomycin HCl 1 gm/Dextrose 275 ml @ 183.708 mls/hr Q12HR@1100,2300 IVPB 04/26/16 23:00 05/01/16 22:59 04/27/16 11:35 Allergies: Coded Allergies: No Known Allergies (Unverified , 04/14/16) Subjective More responsive, awake, alert, open eyes, NAD Objective Last Vital Signs Date Time Temp Pulse Resp B/P Pulse Ox O2 Delivery O2 Flow Rate FiO2 04/27/16 12:02 97.3 80 20 111/70 97 Nasal Cannula 2.0 04/27/16 07:35 28 Laboratory Tests Test 04/27/16 05:30 White Blood Count 7.0 K/UL (4.8-10.8) Red Blood Count 3.47 M/UL (4.70-6.10) L Hemoglobin 10.6 G/DL (14.2-18.0) L Hematocrit 33.2 % (42.0-52.0) L Mean Corpuscular Volume 96 FL (80-99) Mean Corpuscular Hemoglobin 30.6 PG (27.0-31.0) Mean Corpuscular Hemoglobin Concent 32.0 G/DL (32.0-36.0) Red Cell Distribution Width 15.8 % (11.6-14.8) H Platelet Count 194 K/UL (150-450) Mean Platelet Volume 11.1 FL (6.5-10.1) H Neutrophils (%) (Auto) 66.6 % (45.0-75.0) Lymphocytes (%) (Auto) 24.3 % (20.0-45.0) Monocytes (%) (Auto) 5.5 % (1.0-10.0) Eosinophils (%) (Auto) 2.8 % (0.0-3.0) Basophils (%) (Auto) 0.9 % (0.0-2.0) Sodium Level 148 mEQ/L (135-145) H Potassium Level 3.6 mEQ/L (3.4-4.9) Chloride Level 107 mEQ/L (98-107) Carbon Dioxide Level 27 mEQ/L (20-30) Anion Gap 14 (5-15) Blood Urea Nitrogen 13 mg/dL (7-23) Creatinine 0.6 mg/dL (0.7-1.2) L Estimat Glomerular Filtration Rate > 60 mL/min (>60) Glucose Level 347 mg/dL (74-106) H Calcium Level 8.4 mg/dL (8.6-10.2) L Phosphorus Level 1.8 mg/dL (2.5-4.8) L Magnesium Level 2.0 mg/dL (1.7-2.5) Ammonia 33 umol/L (16-60) Intake and Output 04/26/16 04/27/16 19:00 07:00 Intake Total 1386.666 ml 1267.416 ml Output Total 350 ml 1100 ml Balance 1036.666 ml 167.416 ml Intake Oral 240 ml Free Water 60 ml IV Total 1026.666 ml 1227.416 ml Tube Feeding 60 ml 40 ml Output Urine Total 350 ml 1100 ml # Bowel Movements 4 1 Objective GENERAL: more responsive, verbal, NAD HEENT: Pupils are reactive to light. Anicteric. NECK: Supple. No JVD. LUNGS: Fair inspiratory effort. Decreased air in the bases. No wheezes or rales. HEART: S1 and S2. Regular rhythm. No murmur. ABDOMEN: Soft and nondistended. General tenderness. Percutaneous endoscopic gastrostomy site is clean. : Zimmerman cath EXTREMITIES: No cyanosis, clubbing, or edema. NEUROLOGIC: Cranial nerves II through XII are grossly intact. The patient is moving extremities very slowly. Gait was not assessed due to the patient's status. Assessment/Plan Assessment/Plan ASSESSMENT: 1. Pneumonia. 2. Diabetes type 2, uncontrolled. 3. Hypertension. 4. History of cerebrovascular accident with aphasia. 5. Tachycardia. 6. Dehydration. 7. Hypernatremia. 8. Pressure ulcer of the right buttock, stage II as well as left buttock, present on admission. 9. Pressure ulcer of the sacral region, stage II, present on admission. 10. Hypertensive heart disease. 11. Chronic kidney disease. PLAN: IV hydration, Accu-Chek with sliding scale Broad-spectrum antibiotic with vanco, Levaquin, cefepime. Discussed with Dr. Salter from Pulmonary/Critical Care. Follow up with the cultures. Repeat chest x-ray. Code status is Full Code and DVT prophylaxis with heparin subcutaneous. F/U with culture and Labs DC Telemetry Blake Espinal MD Apr 27, 2016 12:32
[2016-04-27] MEDS ORDERED: Phospha 250 Neutral tab ORAL SCH (13:00)
[2016-04-27] MEDS ORDERED: Nitroglycerin Subl 0.4mg tab (Bottle Of 25) SL PRN (15:50)
[2016-04-27 16:00] VITALS: BP 113/76
[2016-04-27] MEDS ORDERED: Tubing IV Secondary IV ONE ×2 (16:43)
[2016-04-27] MEDS ORDERED: 1/2 NS 1000ml IV ONE (16:43)
[2016-04-27] MEDS ORDERED: Sterile Water Irrig 1000ml IRRIG ONE (16:43)
[2016-04-27] MEDS ORDERED: D5NS 1000ml IV ONE (16:43)
[2016-04-27] MEDS ORDERED: Miralax 17gm pkt ORAL PRN (16:45)
[2016-04-27] MEDS ORDERED: Mylanta II UD 30ml ORAL PRN (16:45)
[2016-04-27] MEDS ORDERED: DuoNeb 0.5-3(2.5)mg/3ml neb HHN PRN (16:45)
--- NOTE | 2016-04-27 17:00 | Consultation ---
DATE OF CONSULTATION: 04/27/2016 ENDOCRINOLOGY CONSULTATION CONSULTING PHYSICIAN: Byron Lowe M.D. REFERRING PHYSICIAN: Blake Espinal M.D. REASON FOR CONSULTATION: Diabetes mellitus. HISTORY OF PRESENT ILLNESS: The patient is a 65-year-old male with past medical history of CVA, type 2 diabetes, hypertension, dysphagia, and status post percutaneous endoscopic gastrostomy placement, who lives at [facility], was transferred to [facility] for evaluation of hypoxemia, generalized weakness, tachycardia, and elevated glucose of 576. Upon evaluation, he was diagnosed with pneumonia and admitted to the floor where he was put on IV fluids and IV antibiotics and I was called to manage diabetes. PAST MEDICAL HISTORY: 1. Type 2 diabetes. 2. CVA. 3. Hypertension. 4. Dysphagia. PAST SURGICAL HISTORY: PEG placement. MEDICATIONS: Prior to admission, reviewed and reconciled. He was on Levemir 20 units b.i.d. ALLERGIES TO MEDICATIONS: None. SOCIAL HISTORY: No smoking, alcohol, or drug use. FAMILY HISTORY: Noncontributory. REVIEW OF SYSTEMS: Limited. PHYSICAL EXAMINATION: VITAL SIGNS: Blood pressure is 114/77, pulse 97, respiratory rate of 19, and temperature 98.6 degrees. HEENT: Pupils are reactive to light. Sclerae is anicteric. NECK: No jugular venous distention. HEART: Regular. LUNGS: Clear. ABDOMEN: Positive bowel sounds. G-tube noted. EXTREMITIES: Trace edema. LABORATORY DATA: WBC 7, hemoglobin 10, hematocrit 32, and platelets of 194,000. Sodium 140, potassium 3.6, chloride 107, bicarb 27, BUN 13, creatinine 0.6, and glucose 347. DIAGNOSES: 1. Pneumonia. 2. Dehydration. 3. Hypernatremia. 4. Diabetes, out of control. PLAN: 1. Continue with IV fluids. 2. Continue with IV antibiotics. 3. Increase Levemir from 20 to 27 units q.12 hours, first dose to be started now. 4. Sliding scale insulin has been ordered. Thank you, Dr. Espinal, for the courtesy of this consultation. Byron Lowe M.D. DR: AMBROSE/MAXINE Diza: 04/27/2016 08:09 JOB#: [id number] CC:
[2016-04-27] MEDS: Phospha 250 Neutral tab ORAL SCH (18:04)
[2016-04-27 19:54] VITALS: BP 115/73
[2016-04-27] MEDS: Vancomycin 1 GM in D5W 275 ML IVPB SCH (22:57)
[2016-04-28] VITALS: BP 119/72
[2016-04-28 04:00] VITALS: BP 119/74
[2016-04-28] MEDS: NovoLOG Insulin Flexpen SUBQ SCH ×4 (05:56→21:26)
[2016-04-28 06:35] LABS: BASOPHILS % (AUTO) 0.9 % (0.0-2.0); EOSINOPHILS % (AUTO) 3.5 % (0.0-3.0); LYMPHOCYTES % (AUTO) 29.6 % (20.0-45.0); MEAN CORPUSCULAR HEMOGLOBIN 31.9 PG (27.0-31.0); MEAN CORPUSCULAR HGB CONC 34.5 G/DL (32.0-36.0); MEAN CORPUSCULAR VOLUME 93 FL (80-99); MEAN PLATELET VOLUME 12.6 FL (6.5-10.1); MONOCYTES % (AUTO) 5.3 % (1.0-10.0); NEUTROPHILS % (AUTO) 60.7 % (45.0-75.0); PLATELET COUNT 201 K/UL (150-450); RED BLOOD COUNT 3.39 M/UL (4.70-6.10); RED CELL DISTRIBUTION WIDTH 14.5 % (11.6-14.8); WHITE BLOOD COUNT 6.2 K/UL (4.8-10.8)
--- NOTE | 2016-04-28 06:38 | General Progress Note ---
Assessment/Plan Problem List: (1) Diabetes ICD Codes: E11.9 - Type 2 diabetes mellitus without complications SNOMED: 39102001 (2) Pneumonia ICD Codes: J18.9 - Pneumonia, unspecified organism SNOMED: 135334001 (3) Aspiration pneumonia ICD Codes: J69.0 - Pneumonitis due to inhalation of food and vomit SNOMED: 532849680 (4) Renal insufficiency ICD Codes: N28.9 - Disorder of kidney and ureter, unspecified SNOMED: 115880722 (5) Hyperglycemia ICD Codes: R73.9 - Hyperglycemia, unspecified SNOMED: 80231054 (6) Sepsis ICD Codes: A41.9 - Sepsis, unspecified organism SNOMED: 83266700 Assessment/Plan clinically improved glucose values are still elevated will increase Levemir to 32 units bid continue SSI with Novolog Subjective Allergies: Coded Allergies: No Known Allergies (Unverified , 04/14/16) All Systems: reviewed and negative except above Subjective awake - feeling better Objective Last 24 Hour Vital Signs Date Time Temp Pulse Resp B/P Pulse Ox O2 Delivery O2 Flow Rate FiO2 04/28/16 04:00 98.2 82 18 119/74 99 Nasal Cannula 2.0 04/28/16 03:03 Nasal Cannula 2.0 04/28/16 03:02 Nasal Cannula 04/28/16 00:00 98.2 85 20 119/72 98 Room Air 04/27/16 22:47 Nasal Cannula 2.0 04/27/16 22:46 Nasal Cannula 2.0 04/27/16 19:54 96.8 81 20 115/73 99 Room Air 04/27/16 19:36 86 20 100 Nasal Cannula 2.0 04/27/16 19:32 86 20 98 Nasal Cannula 2.0 04/27/16 19:31 97 Nasal Cannula 2.0 04/27/16 19:30 Nasal Cannula 2.0 04/27/16 16:00 97.9 82 20 113/76 96 Nasal Cannula 2.0 04/27/16 14:51 83 18 100 Nasal Cannula 2.0 04/27/16 14:46 81 18 100 Nasal Cannula 2.0 04/27/16 12:02 97.3 80 20 111/70 97 Nasal Cannula 2.0 04/27/16 12:00 82 04/27/16 11:51 Nasal Cannula 2.0 04/27/16 11:50 Nasal Cannula 2.0 04/27/16 08:06 97.0 79 18 107/70 99 Nasal Cannula 2.0 04/27/16 08:03 76 04/27/16 07:36 77 20 99 Nasal Cannula 2.0 04/27/16 07:36 99 Nasal Cannula 2.0 04/27/16 07:35 Nasal Cannula 2.0 28 04/27/16 07:31 77 20 99 Nasal Cannula 2.0 Intake and Output 04/27/16 04/28/16 19:00 07:00 Intake Total 1130.000 ml 1325.000 ml Output Total 300 ml 650 ml Balance 830.000 ml 675.000 ml Free Water 200 ml IV Total 780.000 ml 405.000 ml Tube Feeding 350 ml 720 ml Output Urine Total 300 ml 650 ml # Bowel Movements 1 Laboratory Tests 04/28/16 05:30: White Blood Count [Pending], Red Blood Count [Pending], Hemoglobin [Pending], Hematocrit [Pending], Mean Corpuscular Volume [Pending], Mean Corpuscular Hemoglobin [Pending], Mean Corpuscular Hemoglobin Concent [Pending], Red Cell Distribution Width [Pending], Platelet Count [Pending], Mean Platelet Volume [ Pending], Neutrophils (%) (Auto) [Pending], Lymphocytes (%) (Auto) [Pending], Monocytes (%) (Auto) [Pending], Eosinophils (%) (Auto) [Pending], Basophils (%) (Auto) [Pending], Sodium Level [Pending], Potassium Level [Pending], Chloride Level [Pending], Carbon Dioxide Level [Pending], Blood Urea Nitrogen [Pending], Creatinine [Pending], Estimat Glomerular Filtration Rate [Pending], Glucose Level [Pending], Calcium Level [Pending], Magnesium Level [Pending], Total Bilirubin [Pending], Aspartate Amino Transf (AST/SGOT) [Pending], Alanine Aminotransferase (ALT/SGPT) [Pending], Alkaline Phosphatase [Pending], Total Protein [Pending], Albumin [Pending], Globulin [Pending] Height (Feet): 5 Height (Inches): 4.00 Weight (Pounds): 144 General Appearance: no apparent distress EENT: PERRL/EOMI Neck: non-tender, normal alignment Cardiovascular: normal peripheral pulses Respiratory/Chest: decreased breath sounds Abdomen: normal bowel sounds, other - PEG Objective Item Value Date Time Bedside Blood Glucose 290 mg/dl H 04/28/16 0619 Bedside Blood Glucose 315 mg/dl H 04/27/16 2203 Bedside Blood Glucose 315 mg/dl H 04/27/16 1805 Bedside Blood Glucose 334 mg/dl H 04/27/16 1202 Bedside Blood Glucose 301 mg/dl H 04/27/16 0950 Bedside Blood Glucose 329 mg/dl H 04/27/16 0630 Current Medications Medications (Trade) Dose Ordered Sig/Xochilt Route PRN Reason Start Time Stop Time Status Last Admin Dose Admin Acetaminophen (Tylenol) 650 mg Q4H PRN ORAL fever 04/27/16 16:45 05/27/16 16:44 Al Hydroxide/Mg Hydroxide (Mylanta II) 30 ml Q6H PRN ORAL dyspepsia 04/27/16 16:45 05/27/16 16:44 Albuterol/ Ipratropium (DuoNeb 0.5-3(2.5)mg/3ml) 3 ml Q4H PRN HHN Shortness of Breath 04/27/16 16:45 05/02/16 16:44 Aspirin (ASA) 81 mg DAILY GT 04/28/16 09:00 05/28/16 08:59 Cefepime HCl 1 gm/ Dextrose 55 ml @ 110 mls/hr EVERY 12 HOURS IV 04/27/16 21:00 05/02/16 20:59 04/27/16 22:02 Dextrose (Dextrose 50%) STAT PRN IV Hypoglycemia 04/27/16 16:45 05/27/16 16:44 Donepezil HCl (Aricept) 10 mg DAILY GT 04/28/16 09:00 05/28/16 08:59 Heparin Sodium (Porcine) (Heparin 5000 units/ml) 5,000 units EVERY 12 HOURS SUBQ 04/27/16 21:00 05/27/16 20:59 04/27/16 22:05 Insulin Aspart (NovoLOG) BEFORE MEALS AND HS SUBQ 04/27/16 16:30 05/27/16 16:29 04/28/16 05:56 Insulin Detemir (Levemir) 27 units EVERY 12 HOURS SUBQ 04/27/16 21:00 05/27/16 20:59 04/27/16 22:03 Levofloxacin (Levaquin) 750 mg DAILY GT 04/28/16 09:00 05/03/16 08:59 Magnesium Oxide (Mag-Ox 400mg) 400 mg DAILY GT 04/28/16 09:00 05/28/16 08:59 Multivitamins 1 tab 1 tab DAILY ORAL 04/28/16 09:00 05/28/16 08:59 Nitroglycerin (Ntg) 0.4 mg Q5M PRN SL Prn Chest Pain 04/27/16 15:50 05/27/16 15:49 Ondansetron HCl (Zofran) 4 mg Q6H PRN IVP Nausea & Vomiting 04/27/16 16:45 05/27/16 16:44 Pantoprazole (Protonix) 40 mg DAILY IVP 04/28/16 09:00 05/28/16 08:59 Phosphorus (Phospha 250 Neutral) 500 mg THREE TIMES A DAY ORAL 04/27/16 18:00 05/27/16 17:59 04/27/16 18:04 Polyethylene Glycol (Miralax) 17 gm DAILYPRN PRN ORAL Constipation 04/27/16 16:45 05/27/16 16:44 Temazepam (Restoril) 15 mg HSPRN PRN ORAL Insomnia 04/27/16 16:45 05/04/16 16:44 Vancomycin HCl (Vanco rx to dose) 1 ea DAILY PRN MISC Per rx protocol 04/28/16 09:00 05/28/16 08:59 Vancomycin HCl/ Dextrose (Vancomycin/D5W) 275 ml @ 183.708 mls/hr Q12HR@1000,2200 IVPB 04/27/16 22:00 05/01/16 21:59 04/27/16 22:57 THEO ALFREDO Apr 28, 2016 06:38
[2016-04-28 06:59] LABS: ALANINE AMINOTRANSFERASE 13 U/L (3-41); ALBUMIN/GLOBULIN RATIO 0.8 (1.0-2.7); ANION GAP 12 (5-15); ASPARTATE AMINO TRANSFERASE 15 U/L (5-40); CALCIUM 8.5 mg/dL (8.6-10.2); CARBON DIOXIDE 29 mEQ/L (20-30); CHLORIDE 102 mEQ/L (98-107); CREATININE 0.7 mg/dL (0.7-1.2); GLOMERULAR FILTRATION RATE > 60 mL/min (>60); HEMOLYSIS 11; MAGNESIUM 1.8 mg/dL (1.7-2.5); POTASSIUM 3.2 mEQ/L (3.4-4.9); SODIUM 143 mEQ/L (135-145); TOTAL PROTEIN 6.5 g/dL (6.6-8.7)
[2016-04-28 08:32] VITALS: BP 115/77
[2016-04-28] MEDS: Magnesium Oxide 400mg tab GT SCH (09:08)
[2016-04-28] MEDS: Aspirin Baby 81mg GT SCH (09:08)
[2016-04-28] MEDS: Phospha 250 Neutral tab ORAL SCH ×3 (09:09→17:37)
[2016-04-28] MEDS: Donepezil 10mg tab GT SCH (09:09)
[2016-04-28] MEDS: Heparin 5000 units/ml inj SUBQ SCH ×2 (09:11→21:24)
[2016-04-28] MEDS: Levemir Flexpen SUBQ SCH ×2 (09:12→21:25)
[2016-04-28] MEDS: Pantoprazole Inj IVP SCH (09:15)
[2016-04-28] MEDS: Cefepime HCl 1 GM in D5W 55 ML IV SCH ×2 (09:16→21:23)
[2016-04-28] MEDS: Vancomycin 1 GM in D5W 275 ML IVPB SCH (11:00)
--- NOTE | 2016-04-28 11:43 | Internal Med Progress Note ---
Subjective Physician Name Blake Espinal Attending Physician Blake Espinal MD Current Medications Medications (Trade) Dose Ordered Sig/Xochilt Route PRN Reason Start Time Stop Time Status Last Admin Dose Admin Acetaminophen (Tylenol) 650 mg Q4H PRN ORAL fever 04/27/16 16:45 05/27/16 16:44 Al Hydroxide/Mg Hydroxide (Mylanta II) 30 ml Q6H PRN ORAL dyspepsia 04/27/16 16:45 05/27/16 16:44 Albuterol/ Ipratropium (DuoNeb 0.5-3(2.5)mg/3ml) 3 ml Q4H PRN HHN Shortness of Breath 04/27/16 16:45 05/02/16 16:44 Aspirin (ASA) 81 mg DAILY GT 04/28/16 09:00 05/28/16 08:59 04/28/16 09:08 Cefepime HCl 1 gm/ Dextrose 55 ml @ 110 mls/hr EVERY 12 HOURS IV 04/27/16 21:00 05/02/16 20:59 04/28/16 09:16 Dextrose (Dextrose 50%) STAT PRN IV Hypoglycemia 04/27/16 16:45 05/27/16 16:44 Donepezil HCl (Aricept) 10 mg DAILY GT 04/28/16 09:00 05/28/16 08:59 04/28/16 09:09 Heparin Sodium (Porcine) (Heparin 5000 units/ml) 5,000 units EVERY 12 HOURS SUBQ 04/27/16 21:00 05/27/16 20:59 04/28/16 09:11 Insulin Aspart (NovoLOG) BEFORE MEALS AND HS SUBQ 04/27/16 16:30 05/27/16 16:29 04/28/16 05:56 Insulin Detemir (Levemir) 32 units EVERY 12 HOURS SUBQ 04/28/16 09:00 05/28/16 08:59 04/28/16 09:12 Levofloxacin (Levaquin) 750 mg DAILY GT 04/28/16 09:00 05/03/16 08:59 04/28/16 09:09 Magnesium Oxide (Mag-Ox 400mg) 400 mg DAILY GT 04/28/16 09:00 05/28/16 08:59 04/28/16 09:08 Multivitamins 1 tab 1 tab DAILY ORAL 04/28/16 09:00 05/28/16 08:59 04/28/16 09:10 Nitroglycerin (Ntg) 0.4 mg Q5M PRN SL Prn Chest Pain 04/27/16 15:50 05/27/16 15:49 Ondansetron HCl (Zofran) 4 mg Q6H PRN IVP Nausea & Vomiting 04/27/16 16:45 05/27/16 16:44 Pantoprazole (Protonix) 40 mg DAILY IVP 04/28/16 09:00 05/28/16 08:59 04/28/16 09:15 Phosphorus (Phospha 250 Neutral) 500 mg THREE TIMES A DAY ORAL 04/27/16 18:00 05/27/16 17:59 04/28/16 09:09 Polyethylene Glycol (Miralax) 17 gm DAILYPRN PRN ORAL Constipation 04/27/16 16:45 05/27/16 16:44 Temazepam (Restoril) 15 mg HSPRN PRN ORAL Insomnia 04/27/16 16:45 05/04/16 16:44 Vancomycin HCl (Vanco rx to dose) 1 ea DAILY PRN MISC Per rx protocol 04/28/16 09:00 05/28/16 08:59 Vancomycin HCl/ Dextrose (Vancomycin/D5W) 275 ml @ 183.708 mls/hr Q12HR@1000,2200 IVPB 04/27/16 22:00 05/01/16 21:59 04/27/16 22:57 Allergies: Coded Allergies: No Known Allergies (Unverified , 04/14/16) Subjective Responsive, awake, alert, open eyes, NAD Objective Last Vital Signs Date Time Temp Pulse Resp B/P Pulse Ox O2 Delivery O2 Flow Rate FiO2 04/28/16 08:32 96.9 84 20 115/77 97 Room Air 04/28/16 04:00 2.0 04/27/16 07:35 28 Laboratory Tests Test 04/28/16 05:30 White Blood Count 6.2 K/UL (4.8-10.8) Red Blood Count 3.39 M/UL (4.70-6.10) L Hemoglobin 10.8 G/DL (14.2-18.0) L Hematocrit 31.4 % (42.0-52.0) L Mean Corpuscular Volume 93 FL (80-99) Mean Corpuscular Hemoglobin 31.9 PG (27.0-31.0) H Mean Corpuscular Hemoglobin Concent 34.5 G/DL (32.0-36.0) Red Cell Distribution Width 14.5 % (11.6-14.8) Platelet Count 201 K/UL (150-450) Mean Platelet Volume 12.6 FL (6.5-10.1) H Neutrophils (%) (Auto) 60.7 % (45.0-75.0) Lymphocytes (%) (Auto) 29.6 % (20.0-45.0) Monocytes (%) (Auto) 5.3 % (1.0-10.0) Eosinophils (%) (Auto) 3.5 % (0.0-3.0) H Basophils (%) (Auto) 0.9 % (0.0-2.0) Sodium Level 143 mEQ/L (135-145) Potassium Level 3.2 mEQ/L (3.4-4.9) L Chloride Level 102 mEQ/L (98-107) Carbon Dioxide Level 29 mEQ/L (20-30) Anion Gap 12 (5-15) Blood Urea Nitrogen 10 mg/dL (7-23) Creatinine 0.7 mg/dL (0.7-1.2) Estimat Glomerular Filtration Rate > 60 mL/min (>60) Glucose Level 284 mg/dL (74-106) H Calcium Level 8.5 mg/dL (8.6-10.2) L Magnesium Level 1.8 mg/dL (1.7-2.5) Total Bilirubin 0.2 mg/dL (0.0-1.2) Aspartate Amino Transf (AST/SGOT) 15 U/L (5-40) Alanine Aminotransferase (ALT/SGPT) 13 U/L (3-41) Alkaline Phosphatase 105 U/L (40-129) Total Protein 6.5 g/dL (6.6-8.7) L Albumin 2.9 g/dL (3.5-5.2) L Globulin 3.6 g/dL Albumin/Globulin Ratio 0.8 (1.0-2.7) L Intake and Output 04/27/16 04/28/16 19:00 07:00 Intake Total 1130.000 ml 1395.000 ml Output Total 300 ml 650 ml Balance 830.000 ml 745.000 ml Free Water 200 ml IV Total 780.000 ml 405.000 ml Tube Feeding 350 ml 790 ml Output Urine Total 300 ml 650 ml # Bowel Movements 1 Objective GENERAL: Responsive, verbal, NAD HEENT: Pupils are reactive to light. Anicteric. NECK: Supple. No JVD. LUNGS: Fair inspiratory effort. goodair in the bases. No wheezes or rales. HEART: S1 and S2. Regular rhythm. No murmur. ABDOMEN: Soft and nondistended. General tenderness. Percutaneous endoscopic gastrostomy site is clean. : Zimmerman cath EXTREMITIES: No cyanosis, clubbing, or edema. NEUROLOGIC: Cranial nerves II through XII are grossly intact. The patient is moving extremities very slowly. Gait was not assessed due to the patient's status. Assessment/Plan Assessment/Plan ASSESSMENT: 1. Pneumonia. 2. Diabetes type 2, uncontrolled. 3. Hypertension. 4. History of cerebrovascular accident with aphasia. 5. Tachycardia. 6. Dehydration. 7. Hypernatremia. 8. Pressure ulcer of the right buttock, stage II as well as left buttock, present on admission. 9. Pressure ulcer of the sacral region, stage II, present on admission. 10. Hypertensive heart disease. 11. Chronic kidney disease. PLAN: IV hydration, Accu-Chek with sliding scale Broad-spectrum antibiotic with vanco, Levaquin, cefepime. Discussed with Dr. Salter from Pulmonary/Critical Care. Code status is Full Code and DVT prophylaxis with heparin subcutaneous. F/U with culture and Labs DC Zimmerman cath Kcl supplements DC Planning to SNF in Blake Espinal MD Apr 28, 2016 11:43
[2016-04-28 11:52] VITALS: BP 110/75
--- NOTE | 2016-04-28 12:08 | Infectious Diseases Prog Note ---
Assessment/Plan Assessment/Plan ASSESSMENT: 65 y/o male with: // Probable recurrent/persistent HCAP - SCx, legionella UAg pending - CXR 04/26: pending - CXR 04/16: New or increased right basilar consolidation, consistent with pneumonia. Left basilar atelectasis persists // Possible sepsis // Afebrile without leukocytosis // DM2 with hyperglycemia - HbA1c 9.1% // Hypernatremia / electrolyte imbalance // h/o CVA // Dysphagia SP PEG // [facility] resident // VRE colonized // NKDA // Full Code PLAN: - continue empiric IV vancomycin, cefepime d# 4 / -10 , and levaquin d# 3 / ( 04/21 SP IV vancomycin, zosyn d# ) - f/u cultures - monitor CBC, temperatures - monitor BMP - monitor CXR DC Planning to SNF in AM Subjective Constitutional: Denies: anorexia, chills, drenching sweats, fatigue, fever, no symptoms, other Allergies: Coded Allergies: No Known Allergies (Unverified , 04/14/16) Objective Vital Signs Last 24 Hour Vital Signs Date Time Temp Pulse Resp B/P Pulse Ox O2 Delivery O2 Flow Rate FiO2 04/28/16 11:52 97.9 90 20 110/75 95 Room Air 04/28/16 11:33 Room Air 04/28/16 11:29 Room Air 04/28/16 08:32 96.9 84 20 115/77 97 Room Air 04/28/16 07:49 Room Air 04/28/16 07:49 Nasal Cannula 04/28/16 07:49 98 Room Air 04/28/16 07:49 Room Air 04/28/16 04:00 98.2 82 18 119/74 99 Nasal Cannula 2.0 04/28/16 03:03 Nasal Cannula 2.0 04/28/16 03:02 Nasal Cannula 04/28/16 00:00 98.2 85 20 119/72 98 Room Air 04/27/16 22:47 Nasal Cannula 2.0 04/27/16 22:46 Nasal Cannula 2.0 04/27/16 19:54 96.8 81 20 115/73 99 Room Air 04/27/16 19:36 86 20 100 Nasal Cannula 2.0 04/27/16 19:32 86 20 98 Nasal Cannula 2.0 04/27/16 19:31 97 Nasal Cannula 2.0 04/27/16 19:30 Nasal Cannula 2.0 04/27/16 16:00 97.9 82 20 113/76 96 Nasal Cannula 2.0 04/27/16 14:51 83 18 100 Nasal Cannula 2.0 04/27/16 14:46 81 18 100 Nasal Cannula 2.0 Height (Feet): 5 Height (Inches): 4.00 Weight (Pounds): 144 HEENT: mucous membranes moist Respiratory/Chest: lungs clear Cardiovascular: regularly irregular Abdomen: no mass Laboratory Tests Test 04/28/16 05:30 White Blood Count 6.2 K/UL (4.8-10.8) Red Blood Count 3.39 M/UL (4.70-6.10) L Hemoglobin 10.8 G/DL (14.2-18.0) L Hematocrit 31.4 % (42.0-52.0) L Mean Corpuscular Volume 93 FL (80-99) Mean Corpuscular Hemoglobin 31.9 PG (27.0-31.0) H Mean Corpuscular Hemoglobin Concent 34.5 G/DL (32.0-36.0) Red Cell Distribution Width 14.5 % (11.6-14.8) Platelet Count 201 K/UL (150-450) Mean Platelet Volume 12.6 FL (6.5-10.1) H Neutrophils (%) (Auto) 60.7 % (45.0-75.0) Lymphocytes (%) (Auto) 29.6 % (20.0-45.0) Monocytes (%) (Auto) 5.3 % (1.0-10.0) Eosinophils (%) (Auto) 3.5 % (0.0-3.0) H Basophils (%) (Auto) 0.9 % (0.0-2.0) Sodium Level 143 mEQ/L (135-145) Potassium Level 3.2 mEQ/L (3.4-4.9) L Chloride Level 102 mEQ/L (98-107) Carbon Dioxide Level 29 mEQ/L (20-30) Anion Gap 12 (5-15) Blood Urea Nitrogen 10 mg/dL (7-23) Creatinine 0.7 mg/dL (0.7-1.2) Estimat Glomerular Filtration Rate > 60 mL/min (>60) Glucose Level 284 mg/dL (74-106) H Calcium Level 8.5 mg/dL (8.6-10.2) L Magnesium Level 1.8 mg/dL (1.7-2.5) Total Bilirubin 0.2 mg/dL (0.0-1.2) Aspartate Amino Transf (AST/SGOT) 15 U/L (5-40) Alanine Aminotransferase (ALT/SGPT) 13 U/L (3-41) Alkaline Phosphatase 105 U/L (40-129) Total Protein 6.5 g/dL (6.6-8.7) L Albumin 2.9 g/dL (3.5-5.2) L Globulin 3.6 g/dL Albumin/Globulin Ratio 0.8 (1.0-2.7) L Current Medications Medications (Trade) Dose Ordered Sig/Xochilt Route PRN Reason Start Time Stop Time Status Last Admin Dose Admin Acetaminophen (Tylenol) 650 mg Q4H PRN ORAL fever 04/27/16 16:45 05/27/16 16:44 Al Hydroxide/Mg Hydroxide (Mylanta II) 30 ml Q6H PRN ORAL dyspepsia 04/27/16 16:45 05/27/16 16:44 Albuterol/ Ipratropium (DuoNeb 0.5-3(2.5)mg/3ml) 3 ml Q4H PRN HHN Shortness of Breath 04/27/16 16:45 05/02/16 16:44 Aspirin (ASA) 81 mg DAILY GT 04/28/16 09:00 05/28/16 08:59 04/28/16 09:08 Cefepime HCl 1 gm/ Dextrose 55 ml @ 110 mls/hr EVERY 12 HOURS IV 04/27/16 21:00 05/02/16 20:59 04/28/16 09:16 Dextrose (Dextrose 50%) STAT PRN IV Hypoglycemia 04/27/16 16:45 05/27/16 16:44 Donepezil HCl (Aricept) 10 mg DAILY GT 04/28/16 09:00 05/28/16 08:59 04/28/16 09:09 Heparin Sodium (Porcine) (Heparin 5000 units/ml) 5,000 units EVERY 12 HOURS SUBQ 04/27/16 21:00 05/27/16 20:59 04/28/16 09:11 Insulin Aspart (NovoLOG) BEFORE MEALS AND HS SUBQ 04/27/16 16:30 05/27/16 16:29 04/28/16 05:56 Insulin Detemir (Levemir) 32 units EVERY 12 HOURS SUBQ 04/28/16 09:00 05/28/16 08:59 04/28/16 09:12 Levofloxacin (Levaquin) 750 mg DAILY GT 04/28/16 09:00 05/03/16 08:59 04/28/16 09:09 Magnesium Oxide (Mag-Ox 400mg) 400 mg DAILY GT 04/28/16 09:00 05/28/16 08:59 04/28/16 09:08 Multivitamins 1 tab 1 tab DAILY ORAL 04/28/16 09:00 05/28/16 08:59 04/28/16 09:10 Nitroglycerin (Ntg) 0.4 mg Q5M PRN SL Prn Chest Pain 04/27/16 15:50 05/27/16 15:49 Ondansetron HCl (Zofran) 4 mg Q6H PRN IVP Nausea & Vomiting 04/27/16 16:45 05/27/16 16:44 Pantoprazole (Protonix) 40 mg DAILY IVP 04/28/16 09:00 05/28/16 08:59 04/28/16 09:15 Phosphorus (Phospha 250 Neutral) 500 mg THREE TIMES A DAY ORAL 04/27/16 18:00 05/27/16 17:59 04/28/16 09:09 Polyethylene Glycol (Miralax) 17 gm DAILYPRN PRN ORAL Constipation 04/27/16 16:45 05/27/16 16:44 Potassium Chloride (K-Dur) 40 meq ONCE ONCE ORAL 04/28/16 12:30 04/28/16 12:31 Temazepam (Restoril) 15 mg HSPRN PRN ORAL Insomnia 04/27/16 16:45 05/04/16 16:44 Vancomycin HCl (Vanco rx to dose) 1 ea DAILY PRN MISC Per rx protocol 04/28/16 09:00 05/28/16 08:59 Vancomycin HCl/ Dextrose (Vancomycin/D5W) 275 ml @ 183.708 mls/hr Q12HR@1000,2200 IVPB 04/27/16 22:00 05/01/16 21:59 04/28/16 11:00 NAINA GRIMES M.D. Apr 28, 2016 12:08
[2016-04-28 16:09] VITALS: BP 126/78
--- NOTE | 2016-04-28 16:21 | Pulmonology Progress Note ---
Assessment/Plan Problems: (1) Sepsis (2) Renal insufficiency (3) Hyperglycemia (4) Diabetes (5) care home resident Assessment/Plan improving check cultures sliding scale endo evaluation tolerating feeding med/surg Subjective Constitutional: Reports: anorexia, chills, fatigue, fever Neurologic: Reports: weakness Allergies: Coded Allergies: No Known Allergies (Unverified , 04/14/16) Objective Last 24 Hour Vital Signs Date Time Temp Pulse Resp B/P Pulse Ox O2 Delivery O2 Flow Rate FiO2 04/28/16 16:09 99.1 92 22 126/78 97 Room Air 04/28/16 11:52 97.9 90 20 110/75 95 Room Air 04/28/16 11:33 Room Air 04/28/16 11:29 Room Air 04/28/16 08:32 96.9 84 20 115/77 97 Room Air 04/28/16 07:49 Room Air 04/28/16 07:49 Nasal Cannula 04/28/16 07:49 98 Room Air 04/28/16 07:49 Room Air 04/28/16 04:00 98.2 82 18 119/74 99 Nasal Cannula 2.0 04/28/16 03:03 Nasal Cannula 2.0 04/28/16 03:02 Nasal Cannula 04/28/16 00:00 98.2 85 20 119/72 98 Room Air 04/27/16 22:47 Nasal Cannula 2.0 04/27/16 22:46 Nasal Cannula 2.0 04/27/16 19:54 96.8 81 20 115/73 99 Room Air 04/27/16 19:36 86 20 100 Nasal Cannula 2.0 04/27/16 19:32 86 20 98 Nasal Cannula 2.0 04/27/16 19:31 97 Nasal Cannula 2.0 04/27/16 19:30 Nasal Cannula 2.0 Intake and Output 04/27/16 04/28/16 19:00 07:00 Intake Total 1130.000 ml 1395.000 ml Output Total 300 ml 650 ml Balance 830.000 ml 745.000 ml Free Water 200 ml IV Total 780.000 ml 405.000 ml Tube Feeding 350 ml 790 ml Output Urine Total 300 ml 650 ml # Bowel Movements 1 General Appearance: no acute distress HEENT: normocephalic, atraumatic, PERRL Respiratory/Chest: chest wall non-tender, decreased breath sounds, accessory muscle use Cardiovascular: normal peripheral pulses, normal rate, regular rhythm Abdomen: normal bowel sounds, soft, non tender, no organomegaly, non distended Genitourinary: normal external genitalia Extremities: no cyanosis Skin: rash 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, no motor/sensory deficits Laboratory Tests 04/28/16 05:30: White Blood Count 6.2, Red Blood Count 3.39L, Hemoglobin 10.8L, Hematocrit 31.4L , Mean Corpuscular Volume 93, Mean Corpuscular Hemoglobin 31.9H, Mean Corpuscular Hemoglobin Concent 34.5, Red Cell Distribution Width 14.5, Platelet Count 201, Mean Platelet Volume 12.6H, Neutrophils (%) (Auto) 60.7, Lymphocytes (%) (Auto) 29.6, Monocytes (%) (Auto) 5.3, Eosinophils (%) (Auto) 3.5H, Basophils (%) (Auto) 0.9, Sodium Level 143, Potassium Level 3.2L, Chloride Level 102, Carbon Dioxide Level 29, Anion Gap 12, Blood Urea Nitrogen 10, Creatinine 0.7, Estimat Glomerular Filtration Rate > 60, Glucose Level 284H, Calcium Level 8.5L, Magnesium Level 1.8, Total Bilirubin 0.2, Aspartate Amino Transf (AST/SGOT) 15, Alanine Aminotransferase (ALT/SGPT) 13, Alkaline Phosphatase 105, Total Protein 6.5L, Albumin 2.9L, Globulin 3.6, Albumin/ Globulin Ratio 0.8L Current Medications Medications (Trade) Dose Ordered Sig/Xochilt Route PRN Reason Start Time Stop Time Status Last Admin Dose Admin Acetaminophen (Tylenol) 650 mg Q4H PRN ORAL fever 04/27/16 16:45 05/27/16 16:44 Al Hydroxide/Mg Hydroxide (Mylanta II) 30 ml Q6H PRN ORAL dyspepsia 04/27/16 16:45 05/27/16 16:44 Albuterol/ Ipratropium (DuoNeb 0.5-3(2.5)mg/3ml) 3 ml Q4H PRN HHN Shortness of Breath 04/27/16 16:45 05/02/16 16:44 Aspirin (ASA) 81 mg DAILY GT 04/28/16 09:00 05/28/16 08:59 04/28/16 09:08 Cefepime HCl 1 gm/ Dextrose 55 ml @ 110 mls/hr EVERY 12 HOURS IV 04/27/16 21:00 05/02/16 20:59 04/28/16 09:16 Dextrose (Dextrose 50%) STAT PRN IV Hypoglycemia 04/27/16 16:45 05/27/16 16:44 Donepezil HCl (Aricept) 10 mg DAILY GT 04/28/16 09:00 05/28/16 08:59 04/28/16 09:09 Heparin Sodium (Porcine) (Heparin 5000 units/ml) 5,000 units EVERY 12 HOURS SUBQ 04/27/16 21:00 05/27/16 20:59 04/28/16 09:11 Insulin Aspart (NovoLOG) BEFORE MEALS AND HS SUBQ 04/27/16 16:30 05/27/16 16:29 04/28/16 12:46 Insulin Detemir (Levemir) 32 units EVERY 12 HOURS SUBQ 04/28/16 09:00 05/28/16 08:59 04/28/16 09:12 Levofloxacin (Levaquin) 750 mg DAILY GT 04/28/16 09:00 05/03/16 08:59 04/28/16 09:09 Magnesium Oxide (Mag-Ox 400mg) 400 mg DAILY GT 04/28/16 09:00 05/28/16 08:59 04/28/16 09:08 Multivitamins 1 tab 1 tab DAILY ORAL 04/28/16 09:00 05/28/16 08:59 04/28/16 09:10 Nitroglycerin (Ntg) 0.4 mg Q5M PRN SL Prn Chest Pain 04/27/16 15:50 05/27/16 15:49 Ondansetron HCl (Zofran) 4 mg Q6H PRN IVP Nausea & Vomiting 04/27/16 16:45 05/27/16 16:44 Pantoprazole (Protonix) 40 mg DAILY IVP 04/28/16 09:00 05/28/16 08:59 04/28/16 09:15 Phosphorus (Phospha 250 Neutral) 500 mg THREE TIMES A DAY ORAL 04/27/16 18:00 05/27/16 17:59 04/28/16 12:45 Polyethylene Glycol (Miralax) 17 gm DAILYPRN PRN ORAL Constipation 04/27/16 16:45 05/27/16 16:44 Temazepam (Restoril) 15 mg HSPRN PRN ORAL Insomnia 04/27/16 16:45 05/04/16 16:44 Vancomycin HCl (Vanco rx to dose) 1 ea DAILY PRN MISC Per rx protocol 04/28/16 09:00 05/28/16 08:59 Vancomycin HCl/ Dextrose (Vancomycin/D5W) 275 ml @ 183.708 mls/hr Q12HR@1000,2200 IVPB 04/27/16 22:00 05/01/16 21:59 04/28/16 11:00 LUIGI JAMIL Apr 28, 2016 16:21
[2016-04-28] MEDS ORDERED: NS 275ml ONE (16:57)
[2016-04-28] MEDS ORDERED: Tubing IV Secondary IV ONE (16:57)
[2016-04-28 20:00] VITALS: BP 146/87
[2016-04-28] MEDS: Vancomycin 1250mg in D5W 275ml IVPB SCH (22:52)
[2016-04-29] VITALS: BP 129/83
[2016-04-29 04:00] VITALS: BP 131/92
[2016-04-29] MEDS: NovoLOG Insulin Flexpen SUBQ SCH ×2 (06:44→11:49)
[2016-04-29 07:43] LABS: BASOPHILS % (AUTO) 0.8 % (0.0-2.0); EOSINOPHILS % (AUTO) 1.3 % (0.0-3.0); LYMPHOCYTES % (AUTO) 25.8 % (20.0-45.0); MEAN CORPUSCULAR HEMOGLOBIN 31.5 PG (27.0-31.0); MEAN CORPUSCULAR HGB CONC 34.1 G/DL (32.0-36.0); MEAN CORPUSCULAR VOLUME 93 FL (80-99); MEAN PLATELET VOLUME 11.2 FL (6.5-10.1); MONOCYTES % (AUTO) 7.2 % (1.0-10.0); NEUTROPHILS % (AUTO) 64.8 % (45.0-75.0); PLATELET COUNT 215 K/UL (150-450); RED BLOOD COUNT 3.59 M/UL (4.70-6.10); RED CELL DISTRIBUTION WIDTH 14.7 % (11.6-14.8); WHITE BLOOD COUNT 9.8 K/UL (4.8-10.8)
--- NOTE | 2016-04-29 07:50 | General Progress Note ---
Assessment/Plan Problem List: (1) Diabetes ICD Codes: E11.9 - Type 2 diabetes mellitus without complications SNOMED: 65819586 (2) Pneumonia ICD Codes: J18.9 - Pneumonia, unspecified organism SNOMED: 489781939 (3) Aspiration pneumonia ICD Codes: J69.0 - Pneumonitis due to inhalation of food and vomit SNOMED: 326260579 (4) Renal insufficiency ICD Codes: N28.9 - Disorder of kidney and ureter, unspecified SNOMED: 356544843 (5) Hyperglycemia ICD Codes: R73.9 - Hyperglycemia, unspecified SNOMED: 44296964 (6) Sepsis ICD Codes: A41.9 - Sepsis, unspecified organism SNOMED: 69849721 Assessment/Plan glucose values are still elevated will increase Levemir to 40 units bid continue SSI with Novolog Subjective Allergies: Coded Allergies: No Known Allergies (Unverified , 04/14/16) All Systems: reviewed and negative except above Subjective awake - feeling better Objective Last 24 Hour Vital Signs Date Time Temp Pulse Resp B/P Pulse Ox O2 Delivery O2 Flow Rate FiO2 04/29/16 04:00 98.1 99 18 131/92 99 Room Air 04/29/16 03:42 Room Air 04/29/16 03:42 Room Air 04/29/16 00:00 97.9 99 18 129/83 97 Room Air 04/28/16 23:42 Room Air 04/28/16 23:42 Room Air 04/28/16 20:00 98.8 100 19 146/87 94 Room Air 04/28/16 19:35 Room Air 04/28/16 19:35 Room Air 04/28/16 19:30 98 Room Air 04/28/16 19:30 Room Air 04/28/16 16:09 99.1 92 22 126/78 97 Room Air 04/28/16 15:30 Room Air 04/28/16 15:30 Room Air 04/28/16 11:52 97.9 90 20 110/75 95 Room Air 04/28/16 11:33 Room Air 04/28/16 11:29 Room Air 04/28/16 08:32 96.9 84 20 115/77 97 Room Air Intake and Output 04/28/16 04/29/16 19:00 07:00 Intake Total 690 ml 1565.000 ml Output Total 900 ml 1500 ml Balance -210 ml 65.000 ml Intake Oral 125 ml Free Water 130 ml 200 ml IV Total 330.000 ml Tube Feeding 560 ml 910 ml Output Urine Total 900 ml 1500 ml # Voids 1 # Bowel Movements 1 Laboratory Tests 04/28/16 21:15: Vancomycin Level Trough 11.1 04/29/16 05:30: White Blood Count [Pending], Red Blood Count [Pending], Hemoglobin [Pending], Hematocrit [Pending], Mean Corpuscular Volume [Pending], Mean Corpuscular Hemoglobin [Pending], Mean Corpuscular Hemoglobin Concent [Pending], Red Cell Distribution Width [Pending], Platelet Count [Pending], Mean Platelet Volume [ Pending], Neutrophils (%) (Auto) [Pending], Lymphocytes (%) (Auto) [Pending], Monocytes (%) (Auto) [Pending], Eosinophils (%) (Auto) [Pending], Basophils (%) (Auto) [Pending] Height (Feet): 5 Height (Inches): 4.00 Weight (Pounds): 144 General Appearance: no apparent distress Neck: normal alignment Cardiovascular: normal peripheral pulses Respiratory/Chest: decreased breath sounds Abdomen: normal bowel sounds, other - PEG Pelvis: normal external exam Objective Current Medications Medications (Trade) Dose Ordered Sig/Xochilt Route PRN Reason Start Time Stop Time Status Last Admin Dose Admin Acetaminophen (Tylenol) 650 mg Q4H PRN ORAL fever 04/27/16 16:45 05/27/16 16:44 Al Hydroxide/Mg Hydroxide (Mylanta II) 30 ml Q6H PRN ORAL dyspepsia 04/27/16 16:45 05/27/16 16:44 Albuterol/ Ipratropium (DuoNeb 0.5-3(2.5)mg/3ml) 3 ml Q4H PRN HHN Shortness of Breath 04/27/16 16:45 05/02/16 16:44 Aspirin (ASA) 81 mg DAILY GT 04/28/16 09:00 05/28/16 08:59 04/28/16 09:08 Cefepime HCl/ Dextrose (Maxipime/D5W) 55 ml @ 110 mls/hr EVERY 12 HOURS IV 04/27/16 21:00 05/02/16 20:59 04/28/16 21:23 Dextrose (Dextrose 50%) STAT PRN IV Hypoglycemia 04/27/16 16:45 05/27/16 16:44 Donepezil HCl (Aricept) 10 mg DAILY GT 04/28/16 09:00 05/28/16 08:59 04/28/16 09:09 Heparin Sodium (Porcine) (Heparin 5000 units/ml) 5,000 units EVERY 12 HOURS SUBQ 04/27/16 21:00 05/27/16 20:59 04/28/16 21:24 Insulin Aspart (NovoLOG) BEFORE MEALS AND HS SUBQ 04/27/16 16:30 05/27/16 16:29 04/29/16 06:44 Insulin Detemir 32 units 32 units EVERY 12 HOURS SUBQ 04/28/16 09:00 05/28/16 08:59 04/28/16 21:25 Levofloxacin (Levaquin) 750 mg DAILY GT 04/28/16 09:00 05/03/16 08:59 04/28/16 09:09 Magnesium Oxide (Mag-Ox 400mg) 400 mg DAILY GT 04/28/16 09:00 05/28/16 08:59 04/28/16 09:08 Multivitamins 1 tab 1 tab DAILY ORAL 04/28/16 09:00 05/28/16 08:59 04/28/16 09:10 Nitroglycerin (Ntg) 0.4 mg Q5M PRN SL Prn Chest Pain 04/27/16 15:50 05/27/16 15:49 Ondansetron HCl (Zofran) 4 mg Q6H PRN IVP Nausea & Vomiting 04/27/16 16:45 05/27/16 16:44 Pantoprazole (Protonix) 40 mg DAILY IVP 04/28/16 09:00 05/28/16 08:59 04/28/16 09:15 Phosphorus (Phospha 250 Neutral) 500 mg THREE TIMES A DAY ORAL 04/27/16 18:00 05/27/16 17:59 04/28/16 17:37 Polyethylene Glycol (Miralax) 17 gm DAILYPRN PRN ORAL Constipation 04/27/16 16:45 05/27/16 16:44 Temazepam (Restoril) 15 mg HSPRN PRN ORAL Insomnia 04/27/16 16:45 05/04/16 16:44 Vancomycin HCl (Vanco rx to dose) 1 ea DAILY PRN MISC Per rx protocol 04/28/16 09:00 05/28/16 08:59 Vancomycin HCl/ Dextrose (Vancomycin/D5W) 275 ml @ 183.708 mls/hr Q12H IVPB 04/28/16 22:30 05/03/16 22:29 04/28/16 22:52 Item Value Date Time Bedside Blood Glucose 273 mg/dl H 04/29/16 0644 Bedside Blood Glucose 324 mg/dl H 04/28/16 2126 Bedside Blood Glucose 290 mg/dl H 04/28/16 1653 Bedside Blood Glucose 258 mg/dl H 04/28/16 1246 Bedside Blood Glucose 290 mg/dl H 04/28/16 0912 Bedside Blood Glucose 290 mg/dl H 04/28/16 0619 THEO ALFREDO Apr 29, 2016 07:50
[2016-04-29] MEDS: Pantoprazole Inj IVP SCH (08:23)
[2016-04-29] MEDS: Cefepime HCl 1 GM in D5W 55 ML IV SCH (08:23)
[2016-04-29 08:24] VITALS: BP 113/77
[2016-04-29] MEDS: Aspirin Baby 81mg GT SCH (08:51)
[2016-04-29] MEDS: Phospha 250 Neutral tab ORAL SCH ×2 (08:51→13:00)
[2016-04-29] MEDS: Donepezil 10mg tab GT SCH (08:51)
[2016-04-29] MEDS: Magnesium Oxide 400mg tab GT SCH (08:52)
[2016-04-29] MEDS: Heparin 5000 units/ml inj SUBQ SCH (08:58)
[2016-04-29] MEDS ORDERED: Levemir Flexpen SUBQ SCH (09:30)
[2016-04-29] MEDS: Vancomycin 1250mg in D5W 275ml IVPB SCH (10:20)
--- NOTE | 2016-04-29 11:46 | Internal Med Progress Note ---
Subjective Date of Service: Apr 29, 2016 Physician Name CobbWilly Attending Physician Blake Espinal MD Current Medications Medications (Trade) Dose Ordered Sig/Xochilt Route PRN Reason Start Time Stop Time Status Last Admin Dose Admin Acetaminophen (Tylenol) 650 mg Q4H PRN ORAL fever 04/27/16 16:45 05/27/16 16:44 Al Hydroxide/Mg Hydroxide (Mylanta II) 30 ml Q6H PRN ORAL dyspepsia 04/27/16 16:45 05/27/16 16:44 Albuterol/ Ipratropium (DuoNeb 0.5-3(2.5)mg/3ml) 3 ml Q4H PRN HHN Shortness of Breath 04/27/16 16:45 05/02/16 16:44 Aspirin (ASA) 81 mg DAILY GT 04/28/16 09:00 05/28/16 08:59 04/29/16 08:51 Cefepime HCl/ Dextrose (Maxipime/D5W) 55 ml @ 110 mls/hr EVERY 12 HOURS IV 04/27/16 21:00 05/02/16 20:59 04/29/16 08:23 Dextrose (Dextrose 50%) STAT PRN IV Hypoglycemia 04/27/16 16:45 05/27/16 16:44 Donepezil HCl (Aricept) 10 mg DAILY GT 04/28/16 09:00 05/28/16 08:59 04/29/16 08:51 Heparin Sodium (Porcine) (Heparin 5000 units/ml) 5,000 units EVERY 12 HOURS SUBQ 04/27/16 21:00 05/27/16 20:59 04/29/16 08:58 Insulin Aspart (NovoLOG) BEFORE MEALS AND HS SUBQ 04/27/16 16:30 05/27/16 16:29 04/29/16 06:44 Insulin Detemir (Levemir) 40 units EVERY 12 HOURS SUBQ 04/29/16 09:30 05/29/16 09:29 04/29/16 10:17 Levofloxacin (Levaquin) 750 mg DAILY GT 04/28/16 09:00 05/03/16 08:59 04/29/16 08:52 Magnesium Oxide (Mag-Ox 400mg) 400 mg DAILY GT 04/28/16 09:00 05/28/16 08:59 04/29/16 08:52 Multivitamins 1 tab 1 tab DAILY ORAL 04/28/16 09:00 05/28/16 08:59 04/29/16 08:52 Nitroglycerin (Ntg) 0.4 mg Q5M PRN SL Prn Chest Pain 04/27/16 15:50 05/27/16 15:49 Ondansetron HCl (Zofran) 4 mg Q6H PRN IVP Nausea & Vomiting 04/27/16 16:45 05/27/16 16:44 Pantoprazole (Protonix) 40 mg DAILY IVP 04/28/16 09:00 05/28/16 08:59 04/29/16 08:23 Phosphorus (Phospha 250 Neutral) 500 mg THREE TIMES A DAY ORAL 04/27/16 18:00 05/27/16 17:59 04/29/16 08:51 Polyethylene Glycol (Miralax) 17 gm DAILYPRN PRN ORAL Constipation 04/27/16 16:45 05/27/16 16:44 Temazepam (Restoril) 15 mg HSPRN PRN ORAL Insomnia 04/27/16 16:45 05/04/16 16:44 Vancomycin HCl 1 ea 1 ea DAILY PRN MISC Per rx protocol 04/28/16 09:00 05/28/16 08:59 Vancomycin HCl/ Dextrose (Vancomycin/D5W) 275 ml @ 183.708 mls/hr Q12H IVPB 04/28/16 22:30 05/03/16 22:29 04/29/16 10:20 Allergies: Coded Allergies: No Known Allergies (Unverified , 04/14/16) ROS Limited/Unobtainable: Yes Subjective 65 YO M admitted with pneumonia. Cover for Int Med-Dr Espinal. Objective Last Vital Signs Date Time Temp Pulse Resp B/P Pulse Ox O2 Delivery O2 Flow Rate FiO2 04/29/16 08:24 98.1 102 19 113/77 95 Room Air 04/29/16 07:00 21 04/28/16 04:00 2.0 Laboratory Tests Test 04/28/16 21:15 04/29/16 05:30 Vancomycin Level Trough 11.1 ug/mL (5.0-12.0) White Blood Count 9.8 K/UL (4.8-10.8) # Red Blood Count 3.59 M/UL (4.70-6.10) L Hemoglobin 11.3 G/DL (14.2-18.0) L Hematocrit 33.2 % (42.0-52.0) L Mean Corpuscular Volume 93 FL (80-99) Mean Corpuscular Hemoglobin 31.5 PG (27.0-31.0) H Mean Corpuscular Hemoglobin Concent 34.1 G/DL (32.0-36.0) Red Cell Distribution Width 14.7 % (11.6-14.8) Platelet Count 215 K/UL (150-450) Mean Platelet Volume 11.2 FL (6.5-10.1) H Neutrophils (%) (Auto) 64.8 % (45.0-75.0) Lymphocytes (%) (Auto) 25.8 % (20.0-45.0) Monocytes (%) (Auto) 7.2 % (1.0-10.0) Eosinophils (%) (Auto) 1.3 % (0.0-3.0) Basophils (%) (Auto) 0.8 % (0.0-2.0) Intake and Output 04/28/16 04/29/16 19:00 07:00 Intake Total 690 ml 1565.000 ml Output Total 900 ml 1500 ml Balance -210 ml 65.000 ml Intake Oral 125 ml Free Water 130 ml 200 ml IV Total 330.000 ml Tube Feeding 560 ml 910 ml Output Urine Total 900 ml 1500 ml # Voids 1 # Bowel Movements 1 Objective Objective GENERAL: Responsive, verbal, NAD HEENT: Pupils are reactive to light. Anicteric. NECK: Supple. No JVD. LUNGS: Fair inspiratory effort. goodair in the bases. No wheezes or rales. HEART: S1 and S2. Regular rhythm. No murmur. ABDOMEN: Soft and nondistended. General tenderness. Percutaneous endoscopic gastrostomy site is clean. : Zimmerman cath EXTREMITIES: No cyanosis, clubbing, or edema. NEUROLOGIC: Cranial nerves II through XII are grossly intact. The patient is moving extremities very slowly. Gait was not assessed due to the patient's status. Assessment/Plan Status: progressing Assessment/Plan Assessment/Plan ASSESSMENT: 1. Pneumonia. 2. Diabetes type 2, uncontrolled. 3. Hypertension. 4. History of cerebrovascular accident with aphasia. 5. Tachycardia. 6. Dehydration. 7. Hypernatremia. 8. Pressure ulcer of the right buttock, stage II as well as left buttock, present on admission. 9. Pressure ulcer of the sacral region, stage II, present on admission. 10. Hypertensive heart disease. 11. Chronic kidney disease. PLAN: IV hydration, Accu-Chek with sliding scale Broad-spectrum antibiotic with vanco, Levaquin, cefepime. Discussed with Dr. Salter from Pulmonary/Critical Care. Code status is Full Code and DVT prophylaxis with heparin subcutaneous. F/U with culture and Labs DC Zimmerman cath Kcl supplements DC Planning to SNF in [place] Apr 29, 2016 11:46
[2016-04-29] MEDS ORDERED: TYLENOL650 MG/20. ORAL (12:10)
[2016-04-29] MEDS ORDERED: MYLANTA30 M1 GT (12:11)
[2016-04-29] MEDS ORDERED: LEVAQUIN750 MG ORAL (12:12)
[2016-04-29] MEDS ORDERED: LEVEMIR100 UNIT/1 SUBQ (12:12)
[2016-04-29] MEDS ORDERED: NITROGLYCERIN0.4 MG SL (12:14)
[2016-04-29] MEDS ORDERED: MIRALAX17 G2 ORAL (12:15)
[2016-04-29] MEDS ORDERED: PHOSPHA 250 NE250 M1 GT (12:15)
[2016-04-29] MEDS ORDERED: RESTORIL15 MG ORAL (12:15)
[2016-04-29] MEDS ORDERED: VANCOMYCIN1 GM/2502 IVPB (12:16)
[2016-04-29] MEDS ORDERED: CEFEPIME-D1 GM/50 ML IVPB (12:17)
[2016-04-29] MEDS ORDERED: KCl 10% 20 mEq/15ml liquid NG ONE (12:30)
[2016-04-29] MEDS ORDERED: NS 275ml ONE (12:34)
[2016-04-29 12:51] VITALS: BP 119/71
--- NOTE | 2016-04-30 09:51 | Discharge Summary ---
Discharge Summary Hospital Course Date of Admission Apr 25, 2016 at 15:34 Date of Discharge Apr 29, 2016 at 12:35 Admitting Diagnosis HPI Lowell Gutiérrez is a 65 year old male who was admitted on Apr 25, 2016 at 15:34 for Pneumonia Hospital Course dc summary dictated # [id number] Discharge Medications Continued Medications: Acetaminophen (Acetaminophen) 650 Mg/20.3 Ml Solution 650 MG ORAL Q4HR PRN for Prn Headache/Temp > 101, ML 0 Refills Al Hydroxide/mg Hydroxide (Mag-Al Liquid) 30 Ml Oral.susp 30 ML GT EVERY 6 HOURS, ML Aspirin* (Aspirin*) 81 Mg Tab.chew 81 MG GT DAILY, TAB Donepezil Hcl* (Aricept*) 10 Mg Tablet 10 MG GT DAILY, TAB Insulin Detemir (Levemir) 100 Unit/1 Ml Vial 40 SUBQ EVERY 12 HOURS, VIAL Levofloxacin* (Levaquin*) 750 Mg Tablet 750 MG ORAL DAILY for 3 Days, TAB Magnesium Oxide (Magnesium Oxide) 400 Mg Tablet 400 MG GT DAILY, #30 TAB 0 Refills Multivitamins* (Multivitamins*) 1 Each Tablet 1 TAB GT DAILY, TAB 0 Refills Nitroglycerin (Nitroglycerin) 0.4 Mg Tab.subl 0.4 MG SL EVERY 30 MINUTES, TAB Phosphorus (Phospha 250 Neutral Tablet) 250 Mg Tablet 500 MG GT TID, TAB Polyethylene Glycol 3350* (Miralax*) 17 Gm Powd.pack 17 GM ORAL DAILY, PACKET Temazepam* (Restoril*) 15 Mg Capsule 15 MG ORAL BEDTIME PRN for Insomnia, CAP Discontinued Medications: Cefepime Hcl/D5w (Cefepime-Dextrose 1 Gm/50 Ml) 1 Gm/50 Ml Piggyback 1 GM IVPB EVERY 12 HOURS, BAG Insulin Detemir (Levemir Flexpen) 100 Unit/1 Ml Insuln.pen 20 UNITS SUBQ Q12HR for 30 Days, EA Pantoprazole* (Pantoprazole*) 40 Mg Tablet.dr 40 MG GT DAILY, TAB Alpmbwjnjmdf-Lohm-Ndynxjjw,Iso (Zosyn 3.375 Gm Pre Mix-Bag) 3.375 Gm/50 Ml Froz.piggy 3.375 GM IVPB EVERY 8 HOURS for 5 Days, BAG Vancomycin Hcl/D5w (Vancomycin-D5w 1 G/250 Ml) 1 Gm/250 Ml Plast..bag 1.25 GM IVPB Q12HR, BAG Discharge Condition Upon Discharge: stable Discharge Disposition Patient was discharged to SNF Discharge Diagnoses: Discharge Instructions Discharge Instructions Special Instructions I have been assigned to complete a D/C Summary on this account. I was not involved in the patient management Michelle Strong NP ([facility]) Apr 30, 2016 09:51
--- NOTE | 2016-04-30 22:29 | Discharge Summary 2 SIG ---
DATE OF ADMISSION: 04/25/2016 DATE OF DISCHARGE: 04/29/2016 ADMITTING DIAGNOSES: 1. Pneumonia. 2. Diabetes mellitus, out of control. 3. Dehydration with hypernatremia. 4. Tachycardia. REASON FOR HOSPITALIZATION: A 65-year-old male was transferred from [facility] where he was sent by nursing facility due to hypoxemia, generalized weakness, tachycardia, and elevated blood sugar of 576. The patient has a past medical history of CVA, diabetes mellitus x2, hypertension, and dysphagia PEG. In the nursing facility, he was noted to be tachycardic with heart rate of 136, elevated blood glucose of 576, and generalized weakness. The patient had recent admission to [facility] due to the altered mental status. In the emergency department in [place], it was noted that urinalysis showed +3 glucose, ketones negative. Urinalysis negative for nitrites and positive for pyuria. WBC initially was 19.8. Stable hemoglobin and hematocrit. Sodium 149. Lactic acid 1.9. Troponin negative. BUN 24 and creatinine 1.5. The patient had a chest x-ray done in [place], which noted to have increased interstitial marking of the right lower lobe, likely secondary to infiltrate versus atelectasis. Costophrenic angles remain sharp. No pleural effusion seen. Cardiac mediastinum and silhouette were normal. EKG revealed sinus tachycardia, ventricular rate of 129. No ST elevation. The patient admitted to Med/Surg floor. Pulmonology consult and Endocrinology consult were requested. The patient started on the IV fluids. Empiric antibiotic provided for pneumonia. Airborne Mission Systems Superintendent followed. Supplemental oxygen and pulmonary toilet provided as needed. Followup chest x-ray ordered. Microelectronics Technician followed for blood sugar management. Blood sugar was managed with long-acting Levemir. Dose was increased as well as the sliding scale of insulin as needed. The patient needs further optimization of antiglycemic regimen at the intermediate facility. Tachycardia secondary to dehydration resolved. Hypernatremia secondary to dehydration resolved as well. Sodium is down to 143. The patient's blood pressure was stable. No need for antihypertensive medication. At the time of discharge, we continued aspirin and the patient's Aricept. DVT prophylaxis provided. Strict aspiration precaution maintained. Wound care provided. Continue the skilled facility. Dehydration resolved with IV fluids. The patient was stable for discharge. DISCHARGE DIAGNOSES: 1. Pneumonia. 2. Diabetes mellitus, out of control. 3. Hypertension. 4. History of cerebrovascular accident with aphasia. 5. Dehydration, resolved. 6. Hypernatremia secondary to dehydration, resolved. 7. Tachycardia secondary to dehydration, resolved. 8. Bilateral buttock decubitus ulcers stage II, present on admission. 9. Dysphagia, G-tube. 10. Chronic kidney disease. Of note, renal parameters and electrolytes were closely monitored. Nephrotoxins were avoided. DISCHARGE MEDICATIONS: See medication reconciliation list, status post antibiotic treatment. DISCHARGE INSTRUCTIONS: The patient is discharged to intermediate facility. Follow up with medical doctor at the facility. Blake Espinal M.D. I have been assigned to dictate discharge summary on this account and I was not involved in the patient's management. Michelle Urbanhuntington hospitalFermín N.PAlison DR: LIYA JOB#: [id number] CC:
--- NOTE | 2016-05-07 14:09 | Diagnostic Imaging Report ---
Indication: DYSPNEA Technique: One view of the chest Comparison: 04/16/2016 Findings: Previously demonstrated right basilar consolidation has cleared. There is some residual atelectasis. There is minimal atelectasis at the left lung base, decreased from the previous study. Pleural spaces are clear. Impression: Cleared right basal infiltrate, since previous exam of 04/16/2016 Bibasilar right greater than left atelectatic changes. No acute process otherwise
== END 2016-04-29 12:35 | DRG 194 ==
LOC: 2E 15:34 → 4W 04-27 15:22
DX: J18.9 Pneumonia, unspecified organism (principal); E87.0 Hyperosmolality and hypernatremia; L89.152 Pressure ulcer of sacral region, stage 2; L89.312 Pressure ulcer of right buttock, stage 2; L89.322 Pressure ulcer of left buttock, stage 2; I13.10 Hypertensive heart and chronic kidney disease without heart failure, with stage 1 through stage 4 chronic kidney disease, or unspecified chronic kidney disease; I69.320 Aphasia following cerebral infarction; E11.65 Type 2 diabetes mellitus with hyperglycemia; E86.0 Dehydration; N18.9 Chronic kidney disease, unspecified; R13.10 Dysphagia, unspecified
CPT/HCPCS: 36415; 71010; 80048; 80053; 80069; 80202; 82140; 82164; 82962; 83735; 84100; 85025; 85610; 85730; 94664; 94760; C9399; J1815; J8499; S5561

== ENCOUNTER 2016-08-09 23:30 | Inpatient (IN) | payer MEDICARE, MEDICAID ==
[~2016-08-09] VITALS: Ht 165.1 cm; Wt 68.0 kg
[~2016-08-09 23:30] MED LIST changes: +CEFEPIME-D1 GM/50 ML IVPB; +LEVAQUIN750 MG ORAL; +LEVEMIR100 UNIT/1 SUBQ; +MIRALAX17 G2 ORAL; +MYLANTA30 M1 GT; +NITROGLYCERIN0.4 MG SL; +PHOSPHA 250 NE250 M1 GT; +RESTORIL15 MG ORAL; +TYLENOL650 MG/20. ORAL; +VANCOMYCIN1 GM/2502 IVPB
[2016-08-09 23:45] VITALS: BP 107/69
[2016-08-10] VITALS (7 sets, daily range): BP systolic 112–126; BP diastolic 67–77
[2016-08-10] MEDS ORDERED: Promethazine/Codeine 5ml UD ORAL PRN
[2016-08-10] MEDS ORDERED: DuoNeb 0.5-3(2.5)mg/3ml neb HHN PRN
[2016-08-10] MEDS ORDERED: Nitroglycerin Subl 0.4mg tab (Bottle Of 25) SL PRN
[2016-08-10] MEDS ORDERED: Miralax 17gm pkt ORAL PRN
[2016-08-10] MEDS ORDERED: Mylanta II UD 30ml ORAL PRN
[2016-08-10 00:04] LABS: MEAN CORPUSCULAR HEMOGLOBIN 31.5 PG (27.0-31.0); MEAN CORPUSCULAR HGB CONC 35.7 G/DL (32.0-36.0); MEAN CORPUSCULAR VOLUME 88 FL (80-99); MEAN PLATELET VOLUME 9.1 FL (6.5-10.1); PLATELET COUNT 213 K/UL (150-450); RED BLOOD COUNT 4.57 M/UL (4.70-6.10); RED CELL DISTRIBUTION WIDTH 12.3 % (11.6-14.8)
[2016-08-10 00:08] LABS: WHITE BLOOD COUNT 26.8 K/UL (4.8-10.8)
[2016-08-10 00:22] LABS: ALANINE AMINOTRANSFERASE 15 U/L (3-41); ALBUMIN/GLOBULIN RATIO 0.8 (1.0-2.7); ANION GAP 14 (5-15); ASPARTATE AMINO TRANSFERASE 15 U/L (5-40); CALCIUM 9.2 mg/dL (8.6-10.2); CARBON DIOXIDE 26 mEQ/L (20-30); CHLORIDE 103 mEQ/L (98-107); CREATININE 0.8 mg/dL (0.7-1.2); GLOMERULAR FILTRATION RATE > 60 mL/min (>60); HEMOLYSIS 3; POTASSIUM 3.3 mEQ/L (3.4-4.9); SODIUM 143 mEQ/L (135-145); TOTAL PROTEIN 7.4 g/dL (6.6-8.7)
[2016-08-10 00:23] LABS: TROPONIN I < 0.30 ng/mL (<=0.30)
[2016-08-10 00:33] LABS: CKMB < 1.5 ng/mL (< 6.7)
--- NOTE | 2016-08-10 00:39 | Emergency Room Report ---
History of Present Illness General Chief Complaint: Abnormal Labs Source: Patient, Medical Record, EMS Present Illness HPI Is a 66-year-old male from a alf. He has a history of CVA and has a feeding tube in. He also a history of dementia. He presents with chief complaint of crush no fever and abnormal labs the alf. He has a white count over 20,000. Patient himself has no complaint. No cough or congestion. No abdominal pain. History limited because of his condition however. Allergies: Coded Allergies: No Known Allergies (Unverified , 04/14/16) Patient History Past Medical History: see triage record, old chart reviewed Past Surgical History: other Pertinent Family History: none Social History: Denies: smoking Immunizations: other Reviewed Nursing Documentation: PMH: Agreed, PSxH: Agreed Nursing Documentation-PMH Hx Cardiac Problems: Yes Hx Hypertension: Yes Hx Diabetes: Yes Hx Cancer: No Hx Gastrointestinal Problems: Yes - g tube Hx Neurological Problems: Yes Hx Cerebrovascular Accident: Yes Hx Speech Problem: No Hx Aphasia: Yes Hx Dysphasia: Yes Hx Weakness: Yes Review of Systems Eye: Denies: blurred vision, eye pain ENT: Denies: ear pain, nose congestion, throat swelling Respiratory: Denies: cough, shortness of breath Cardiovascular: Denies: chest pain, palpitations Gastrointestinal: Denies: abdominal pain, diarrhea, nausea, vomiting Musculoskeletal: Denies: back pain, joint pain Skin: Denies: rash Neurological: Denies: headache, numbness Endocrine: Denies: increased thirst, increased urine Hematologic/Lymphatic: Denies: easy bruising All Other Systems: negative except mentioned in HPI Physical Exam Vital Signs Date Time Temp Pulse Resp B/P Pulse Ox O2 Delivery O2 Flow Rate FiO2 08/09/16 23:32 98.2 100 20 107/69 91 Room Air vitals with mild hypoxia. Repeat however is 98% on room air. Sp02 EP Interpretation: reviewed, normal General Appearance: well appearing, no apparent distress, alert Head: normocephalic, atraumatic Eyes: bilateral eye EOMI, bilateral eye PERRL ENT: hearing grossly normal, normal pharynx Neck: full range of motion, supple, no meningismus Respiratory: chest non-tender, lungs clear, normal breath sounds Cardiovascular #1: regular rate, rhythm, no murmur Gastrointestinal: normal bowel sounds, non tender, no mass, no organomegaly, no bruit, non-distended Musculoskeletal: back normal, normal range of motion Neurologic: alert Psychiatric: mood/affect normal Skin: warm/dry Medical Decision Making Diagnostic Impression: Primary Impression: Sepsis Qualified Codes: A41.9 - Sepsis, unspecified organism Additional Impression: UTI (urinary tract infection) Qualified Codes: N30.00 - Acute cystitis without hematuria ER Course Present with sepsis secondary to UTI. He looks well otherwise. Antibiotic started. IV fluid given. Will admit to the surgical floor. I contacted Dr. Salter who will admit for Dr. Lopez. Laboratory Tests Test 08/09/16 23:45 08/10/16 00:40 White Blood Count 26.8 K/UL (4.8-10.8) *H Red Blood Count 4.57 M/UL (4.70-6.10) L Hemoglobin 14.4 G/DL (14.2-18.0) Hematocrit 40.3 % (42.0-52.0) L Mean Corpuscular Volume 88 FL (80-99) Mean Corpuscular Hemoglobin 31.5 PG (27.0-31.0) H Mean Corpuscular Hemoglobin Concent 35.7 G/DL (32.0-36.0) Red Cell Distribution Width 12.3 % (11.6-14.8) Platelet Count 213 K/UL (150-450) Mean Platelet Volume 9.1 FL (6.5-10.1) Neutrophils (%) (Auto) % (45.0-75.0) Lymphocytes (%) (Auto) % (20.0-45.0) Monocytes (%) (Auto) % (1.0-10.0) Eosinophils (%) (Auto) % (0.0-3.0) Basophils (%) (Auto) % (0.0-2.0) Differential Total Cells Counted 100 Neutrophils % (Manual) 57 % (45-75) Lymphocytes % (Manual) 23 % (20-45) Monocytes % (Manual) 7 % (1-10) Eosinophils % (Manual) 0 % (0-3) Basophils % (Manual) 1 % (0-2) Band Neutrophils 12 % (0-8) H Platelet Estimate Adequate Platelet Morphology Normal Red Blood Cell Morphology Normal Sodium Level 143 mEQ/L (135-145) Potassium Level 3.3 mEQ/L (3.4-4.9) L Chloride Level 103 mEQ/L (98-107) Carbon Dioxide Level 26 mEQ/L (20-30) Anion Gap 14 (5-15) Blood Urea Nitrogen 14 mg/dL (7-23) Creatinine 0.8 mg/dL (0.7-1.2) Estimat Glomerular Filtration Rate > 60 mL/min (>60) Glucose Level 157 mg/dL (74-106) H Lactic Acid Level 1.50 mmol/L (0.66-2.22) Calcium Level 9.2 mg/dL (8.6-10.2) Total Bilirubin 0.5 mg/dL (0.0-1.2) Aspartate Amino Transf (AST/SGOT) 15 U/L (5-40) Alanine Aminotransferase (ALT/SGPT) 15 U/L (3-41) Alkaline Phosphatase 78 U/L (40-129) Total Creatine Kinase 58 U/L (38-174) Creatine Kinase MB < 1.5 ng/mL (< 6.7) Creatine Kinase MB Relative Index 2.5 Troponin I < 0.30 ng/mL (<=0.30) Total Protein 7.4 g/dL (6.6-8.7) Albumin 3.5 g/dL (3.5-5.2) Globulin 3.9 g/dL Albumin/Globulin Ratio 0.8 (1.0-2.7) L Urine Color Yellow Urine Appearance Slightly cloudy Urine pH 6.5 (4.5-8.0) Urine Specific [place] 1.020 (1.005-1.035) Urine Protein 2+ (NEGATIVE) H Urine Glucose (UA) 1+ (NEGATIVE) H Urine Ketones 1+ (NEGATIVE) H Urine Occult Blood 5+ (NEGATIVE) H Urine Nitrite Positive (NEGATIVE) H Urine Bilirubin Negative (NEGATIVE) Urine Urobilinogen 1 MG/DL (0.0-1.0) H Urine Leukocyte Esterase 3+ (NEGATIVE) H Urine RBC Tntc /HPF (0 - 0) H Urine WBC Tntc /HPF (0 - 0) H Urine Squamous Epithelial Cells None /LPF (NONE/OCC) Urine Bacteria Many /HPF (NONE) H Urine Legionella Antigen Pending Lab Results Impression labs with leukocytosis EKG Diagnostic Results Rate: normal Rhythm: NSR ST Segments: no acute changes Rhythm Strip Diag. Results EP Interpretation: yes Rate: 95 Rhythm: NSR, no PVC's, no ectopy Chest X-Ray Diagnostic Results EP Interpretation: Yes Findings: no consolidation, no effusion, no pneumothorax, no acute cardiopulmonary disease Number of Views: 1 Last Vital Signs Date Time Temp Pulse Resp B/P Pulse Ox O2 Delivery O2 Flow Rate FiO2 08/10/16 00:33 99.2 08/09/16 23:32 100 20 107/69 91 Room Air Status: improved Disposition: ADMITTED INPATIENT Condition: Serious Referrals: NON PHYSICIAN (PCP) MONICA BROCK M.D. August 10, 2016 00:39
[2016-08-10 01:00] LABS: APPEARANCE,URINE SLIGHTLY CLOUDY
[2016-08-10 01:01] LABS: KETONES,URINE 1+ (NEGATIVE); LEUKOCYTE ESTERASE ,URINE 3+ (NEGATIVE); NITRITE,URINE POSITIVE (NEGATIVE); PH,URINE 6.5 (4.5-8.0); PROTEIN,URINE 2+ (NEGATIVE); UROBILINOGEN,URINE 1 MG/DL (0.0-1.0)
[2016-08-10 01:02] LABS: BACTERIA,URINE MANY /HPF; RBC,URINE TNTC /HPF (0 - 0); WBC,URINE TNTC /HPF (0 - 0)
[2016-08-10 01:09] LABS: BAND NEUTROPHILS % (MANUAL) 12 % (0-8); BASOPHILS % (MANUAL) 1 % (0-2); EOSINOPHILS % (MANUAL) 0 % (0-3); LYMPHOCYTES % (MANUAL) 23 % (20-45); NEUTROPHILS % (MANUAL) 57 % (45-75); PLATELET ESTIMATE ADEQUATE; PLATELET MORPHOLOGY NORMAL; TOTAL CELLS COUNTED 100
[2016-08-10] MEDS ORDERED: Zosyn 3.375gm inj ONE (01:24)
[2016-08-10] MEDS ORDERED: Piperacillin/Tazobactam 3.375 GM in NS 110 ML IVPB ONE (01:30)
[2016-08-10] MEDS ORDERED: HUMULIN R100 UNIT/1 SUBQ (03:28)
[2016-08-10] MEDS ORDERED: NovoLOG Insulin Flexpen SUBQ SCH (06:30)
[2016-08-10] MEDS: Cefepime HCl 1 GM in D5W 55 ML IV SCH ×2 (09:11→21:36)
[2016-08-10] MEDS: Heparin 5000 units/ml inj SUBQ SCH ×2 (09:14→21:35)
--- NOTE | 2016-08-10 10:19 | Diagnostic Imaging Report ---
Indication: Chest Pain Comparison: 04/26/16 A single view chest radiograph was obtained. Findings: No definite infiltrate or pulmonary vascular congestion identified. The heart is borderline enlarged. The aorta is mildly enlarged consistent with atherosclerotic vascular disease. The bones are osteopenic. Impression: No acute disease
[2016-08-10] MEDS: NovoLOG Insulin Flexpen SUBQ SCH ×2 (12:13→17:40)
--- NOTE | 2016-08-10 12:14 | Consultation ---
History of Present Illness General Date patient seen: August 10, 2016 Chief Complaint: Abnormal Labs Referring physician: dr Lopez Reason for Consultation: sepsis Present Illness HPI 66-year-old male from a shelter with of history of CVA, feeding tube, dementia presented to ER with chief complaint of fever and abnormal labs. He has a white count over 20,000. Patient himself has no complaint. No cough or congestion. No abdominal pain. Pt looks chronically ill and admitted to further management. Allergies: Coded Allergies: No Known Allergies (Unverified , 04/14/16) Medication History Scheduled Aspirin* (Aspirin*), 81 MG GT DAILY, (Reported) Donepezil Hcl* (Aricept*), 10 MG GT DAILY, (Reported) Insulin Detemir (Levemir), 40 UNITS SUBQ EVERY 12 HOURS, (Reported) Magnesium Oxide (Magnesium Oxide), 400 MG GT DAILY, (Reported) Multivitamins* (Multivitamins*), 1 TAB GT DAILY, (Reported) Nitroglycerin (Nitroglycerin), 0.4 MG SL every 5 mins, (Reported) Phosphorus (Phospha 250 Neutral Tablet), 500 MG GT TID, (Reported) Scheduled PRN Acetaminophen (Acetaminophen), 650 MG ORAL Q4HR PRN for Prn Headache/Temp > 101, (Reported) Insulin Regular, Human (Humulin R), 0 SUBQ Q6HR PRN for Sliding Scale, (Reported ) Patient History Healthcare decision maker Resuscitation status Full Code Advanced Directive on File No Past Medical/Surgical History Past Medical/Surgical History: (1) Renal insufficiency (2) G-tube site cellulitis (3) Diabetes (4) [facility] resident Review of Systems All Other Systems: negative except mentioned in HPI Physical Exam General Appearance: WD/WN, no apparent distress Lines, tubes and drains: peripheral, PICC HEENT: normocephalic, atraumatic Neck: non-tender, normal alignment Respiratory/Chest: chest wall non-tender, lungs clear Cardiovascular/Chest: normal peripheral pulses, normal rate, no JVD Abdomen: normal bowel sounds, non tender Genitourinary/Rectal: normal genital exam Extremities: normal range of motion Last 24 Hour Vital Signs Date Time Temp Pulse Resp B/P Pulse Ox O2 Delivery O2 Flow Rate FiO2 08/10/16 08:00 98.1 93 14 120/67 94 Room Air 08/10/16 06:48 76 18 Room Air 08/10/16 04:00 97.7 74 20 112/75 97 Room Air 08/10/16 03:00 97.7 73 16 123/77 97 Room Air 08/10/16 02:25 99.2 78 13 123/70 96 Room Air 08/10/16 01:45 99.2 77 14 114/68 96 Room Air 08/10/16 00:33 99.2 08/09/16 23:45 98.2 97 20 107/69 94 Room Air 08/09/16 23:32 98.2 100 20 107/69 91 Room Air Intake and Output 08/09/16 08/10/16 19:00 07:00 Intake Total 2030 ml Balance 2030 ml IV Total 2000 ml Tube Feeding 30 ml # Voids 3 Laboratory Tests Test 08/09/16 23:45 08/10/16 00:40 White Blood Count 26.8 K/UL (4.8-10.8) *H Red Blood Count 4.57 M/UL (4.70-6.10) L Hemoglobin 14.4 G/DL (14.2-18.0) Hematocrit 40.3 % (42.0-52.0) L Mean Corpuscular Volume 88 FL (80-99) Mean Corpuscular Hemoglobin 31.5 PG (27.0-31.0) H Mean Corpuscular Hemoglobin Concent 35.7 G/DL (32.0-36.0) Red Cell Distribution Width 12.3 % (11.6-14.8) Platelet Count 213 K/UL (150-450) Mean Platelet Volume 9.1 FL (6.5-10.1) Neutrophils (%) (Auto) % (45.0-75.0) Lymphocytes (%) (Auto) % (20.0-45.0) Monocytes (%) (Auto) % (1.0-10.0) Eosinophils (%) (Auto) % (0.0-3.0) Basophils (%) (Auto) % (0.0-2.0) Differential Total Cells Counted 100 Neutrophils % (Manual) 57 % (45-75) Lymphocytes % (Manual) 23 % (20-45) Monocytes % (Manual) 7 % (1-10) Eosinophils % (Manual) 0 % (0-3) Basophils % (Manual) 1 % (0-2) Band Neutrophils 12 % (0-8) H Platelet Estimate Adequate Platelet Morphology Normal Red Blood Cell Morphology Normal Sodium Level 143 mEQ/L (135-145) Potassium Level 3.3 mEQ/L (3.4-4.9) L Chloride Level 103 mEQ/L (98-107) Carbon Dioxide Level 26 mEQ/L (20-30) Anion Gap 14 (5-15) Blood Urea Nitrogen 14 mg/dL (7-23) Creatinine 0.8 mg/dL (0.7-1.2) Estimat Glomerular Filtration Rate > 60 mL/min (>60) Glucose Level 157 mg/dL (74-106) H Lactic Acid Level 1.50 mmol/L (0.66-2.22) Calcium Level 9.2 mg/dL (8.6-10.2) Total Bilirubin 0.5 mg/dL (0.0-1.2) Aspartate Amino Transf (AST/SGOT) 15 U/L (5-40) Alanine Aminotransferase (ALT/SGPT) 15 U/L (3-41) Alkaline Phosphatase 78 U/L (40-129) Total Creatine Kinase 58 U/L (38-174) Creatine Kinase MB < 1.5 ng/mL (< 6.7) Creatine Kinase MB Relative Index 2.5 Troponin I < 0.30 ng/mL (<=0.30) Total Protein 7.4 g/dL (6.6-8.7) Albumin 3.5 g/dL (3.5-5.2) Globulin 3.9 g/dL Albumin/Globulin Ratio 0.8 (1.0-2.7) L Urine Color Yellow Urine Appearance Slightly cloudy Urine pH 6.5 (4.5-8.0) Urine Specific [place] 1.020 (1.005-1.035) Urine Protein 2+ (NEGATIVE) H Urine Glucose (UA) 1+ (NEGATIVE) H Urine Ketones 1+ (NEGATIVE) H Urine Occult Blood 5+ (NEGATIVE) H Urine Nitrite Positive (NEGATIVE) H Urine Bilirubin Negative (NEGATIVE) Urine Urobilinogen 1 MG/DL (0.0-1.0) H Urine Leukocyte Esterase 3+ (NEGATIVE) H Urine RBC Tntc /HPF (0 - 0) H Urine WBC Tntc /HPF (0 - 0) H Urine Squamous Epithelial Cells None /LPF (NONE/OCC) Urine Bacteria Many /HPF (NONE) H Urine Legionella Antigen Pending Height (Feet): 5 Height (Inches): 5.00 Weight (Pounds): 150 Medications Current Medications Medications (Trade) Dose Ordered Sig/Xochilt Route PRN Reason Start Time Stop Time Status Last Admin Dose Admin Acetaminophen (Tylenol) 650 mg Q4H PRN ORAL fever 08/10/16 00:00 09/09/16 00:00 Al Hydroxide/Mg Hydroxide (Mylanta II) 30 ml Q6H PRN ORAL dyspepsia 08/10/16 00:00 09/09/16 00:00 Albuterol/ Ipratropium 3 ml 3 ml EVERY 4 HOURS PRN HHN Shortness of Breath 08/10/16 00:00 08/15/16 00:00 Cefepime HCl/ Dextrose (Maxipime/D5W) 55 ml @ 110 mls/hr EVERY 12 HOURS IV 08/10/16 09:00 08/17/16 08:59 08/10/16 09:11 Heparin Sodium (Porcine) (Heparin 5000 units/ml) 5,000 units EVERY 12 HOURS SUBQ 08/10/16 09:00 09/09/16 08:59 08/10/16 09:14 Insulin Aspart (NovoLOG) Q6HR SUBQ 08/10/16 12:00 09/09/16 11:59 Nitroglycerin (Ntg) 0.4 mg Q5M PRN SL Prn Chest Pain 08/10/16 00:00 09/09/16 00:00 Ondansetron HCl (Zofran) 4 mg Q6H PRN IVP Nausea & Vomiting 08/10/16 00:00 09/09/16 00:00 Polyethylene Glycol (Miralax) 17 gm DAILYPRN PRN ORAL Constipation 08/10/16 00:00 09/09/16 00:00 Promethazine HCl/ Codeine (Phenergan with Codeine) 5 ml Q4H PRN ORAL For Cough 08/10/16 00:00 09/09/16 00:00 Temazepam (Restoril) 15 mg HSPRN PRN ORAL Insomnia 08/10/16 00:00 08/17/16 00:00 Assessment/Plan Problem List: (1) Sepsis ICD Codes: A41.9 - Sepsis, unspecified organism SNOMED: 56397675 Qualifiers: Qualified Codes: A41.9 - Sepsis, unspecified organism (2) Renal insufficiency ICD Codes: N28.9 - Disorder of kidney and ureter, unspecified SNOMED: 382529251 (3) UTI (urinary tract infection) ICD Codes: N39.0 - Urinary tract infection, site not specified SNOMED: 80416037 Qualifiers: Qualified Codes: N30.00 - Acute cystitis without hematuria (4) [facility] resident ICD Codes: Z59.3 - Problems related to living in residential institution SNOMED: 505212849 (5) G-tube site cellulitis ICD Codes: K94.22 - Gastrostomy infection; L03.319 - Cellulitis of trunk, unspecified SNOMED: 790379055, 912155199 Assessment/Plan scott culture broad spectrum antibiotics gtube feeding check electrolytes dvt prophylaxis LUIGI JAMIL August 10, 2016 12:13
[2016-08-10 13:28] LABS: MEAN CORPUSCULAR HEMOGLOBIN 30.9 PG (27.0-31.0); MEAN CORPUSCULAR HGB CONC 34.7 G/DL (32.0-36.0); MEAN CORPUSCULAR VOLUME 89 FL (80-99); MEAN PLATELET VOLUME 8.6 FL (6.5-10.1); PLATELET COUNT 181 K/UL (150-450); RED BLOOD COUNT 4.11 M/UL (4.70-6.10); RED CELL DISTRIBUTION WIDTH 12.2 % (11.6-14.8); WHITE BLOOD COUNT 18.2 K/UL (4.8-10.8)
[2016-08-10 13:32] LABS: ANION GAP 14 (5-15); CALCIUM 8.5 mg/dL (8.6-10.2); CARBON DIOXIDE 24 mEQ/L (20-30); CHLORIDE 105 mEQ/L (98-107); CREATININE 0.6 mg/dL (0.7-1.2); GLOMERULAR FILTRATION RATE > 60 mL/min (>60); HEMOLYSIS 4; PHOSPHORUS 1.8 mg/dL (2.5-4.8); POTASSIUM 3.5 mEQ/L (3.4-4.9); SODIUM 143 mEQ/L (135-145)
[2016-08-10 13:44] LABS: BAND NEUTROPHILS % (MANUAL) 0 % (0-8); BASOPHILS % (MANUAL) 0 % (0-2); EOSINOPHILS % (MANUAL) 0 % (0-3); LYMPHOCYTES % (MANUAL) 20 % (20-45); NEUTROPHILS % (MANUAL) 74 % (45-75); PLATELET ESTIMATE ADEQUATE; PLATELET MORPHOLOGY NORMAL; TOTAL CELLS COUNTED 100
--- NOTE | 2016-08-10 13:47 | Infectious Diseases Prog Note ---
Assessment/Plan Problems: (1) UTI (urinary tract infection) Assessment & Plan: will continue cefepime and send urine culture (2) Sepsis Assessment & Plan: due to UTI, will send blood culture and continue cefepime, and add vancomycin (3) Diabetes Assessment & Plan: recommend tight glycemic control to keep blood glucose between 80-120 Subjective Allergies: Coded Allergies: No Known Allergies (Unverified , 04/14/16) Objective Vital Signs Last 24 Hour Vital Signs Date Time Temp Pulse Resp B/P Pulse Ox O2 Delivery O2 Flow Rate FiO2 08/10/16 12:23 97.5 99 18 120/74 94 Nasal Cannula 08/10/16 08:00 98.1 93 14 120/67 94 Room Air 08/10/16 06:48 76 18 Room Air 08/10/16 04:00 97.7 74 20 112/75 97 Room Air 08/10/16 03:00 97.7 73 16 123/77 97 Room Air 08/10/16 02:25 99.2 78 13 123/70 96 Room Air 08/10/16 01:45 99.2 77 14 114/68 96 Room Air 08/10/16 00:33 99.2 08/09/16 23:45 98.2 97 20 107/69 94 Room Air 08/09/16 23:32 98.2 100 20 107/69 91 Room Air Height (Feet): 5 Height (Inches): 5.00 Weight (Pounds): 150 Laboratory Tests Test 08/09/16 23:45 08/10/16 00:40 08/10/16 12:50 White Blood Count 26.8 K/UL (4.8-10.8) *H 18.2 K/UL (4.8-10.8) H Red Blood Count 4.57 M/UL (4.70-6.10) L 4.11 M/UL (4.70-6.10) L Hemoglobin 14.4 G/DL (14.2-18.0) 12.7 G/DL (14.2-18.0) L Hematocrit 40.3 % (42.0-52.0) L 36.6 % (42.0-52.0) L Mean Corpuscular Volume 88 FL (80-99) 89 FL (80-99) Mean Corpuscular Hemoglobin 31.5 PG (27.0-31.0) H 30.9 PG (27.0-31.0) Mean Corpuscular Hemoglobin Concent 35.7 G/DL (32.0-36.0) 34.7 G/DL (32.0-36.0) Red Cell Distribution Width 12.3 % (11.6-14.8) 12.2 % (11.6-14.8) Platelet Count 213 K/UL (150-450) 181 K/UL (150-450) Mean Platelet Volume 9.1 FL (6.5-10.1) 8.6 FL (6.5-10.1) Neutrophils (%) (Auto) % (45.0-75.0) % (45.0-75.0) Lymphocytes (%) (Auto) % (20.0-45.0) % (20.0-45.0) Monocytes (%) (Auto) % (1.0-10.0) % (1.0-10.0) Eosinophils (%) (Auto) % (0.0-3.0) % (0.0-3.0) Basophils (%) (Auto) % (0.0-2.0) % (0.0-2.0) Differential Total Cells Counted 100 100 Neutrophils % (Manual) 57 % (45-75) 74 % (45-75) Lymphocytes % (Manual) 23 % (20-45) 20 % (20-45) Monocytes % (Manual) 7 % (1-10) 6 % (1-10) Eosinophils % (Manual) 0 % (0-3) 0 % (0-3) Basophils % (Manual) 1 % (0-2) 0 % (0-2) Band Neutrophils 12 % (0-8) H 0 % (0-8) Platelet Estimate Adequate Adequate Platelet Morphology Normal Normal Red Blood Cell Morphology Normal Normal Sodium Level 143 mEQ/L (135-145) 143 mEQ/L (135-145) Potassium Level 3.3 mEQ/L (3.4-4.9) L 3.5 mEQ/L (3.4-4.9) Chloride Level 103 mEQ/L (98-107) 105 mEQ/L (98-107) Carbon Dioxide Level 26 mEQ/L (20-30) 24 mEQ/L (20-30) Anion Gap 14 (5-15) 14 (5-15) Blood Urea Nitrogen 14 mg/dL (7-23) 10 mg/dL (7-23) Creatinine 0.8 mg/dL (0.7-1.2) 0.6 mg/dL (0.7-1.2) L Estimat Glomerular Filtration Rate > 60 mL/min (>60) > 60 mL/min (>60) Glucose Level 157 mg/dL (74-106) H 130 mg/dL (74-106) H Lactic Acid Level 1.50 mmol/L (0.66-2.22) Calcium Level 9.2 mg/dL (8.6-10.2) 8.5 mg/dL (8.6-10.2) L Total Bilirubin 0.5 mg/dL (0.0-1.2) Aspartate Amino Transf (AST/SGOT) 15 U/L (5-40) Alanine Aminotransferase (ALT/SGPT) 15 U/L (3-41) Alkaline Phosphatase 78 U/L (40-129) Total Creatine Kinase 58 U/L (38-174) Creatine Kinase MB < 1.5 ng/mL (< 6.7) Creatine Kinase MB Relative Index 2.5 Troponin I < 0.30 ng/mL (<=0.30) Total Protein 7.4 g/dL (6.6-8.7) Albumin 3.5 g/dL (3.5-5.2) 3.0 g/dL (3.5-5.2) L Globulin 3.9 g/dL Albumin/Globulin Ratio 0.8 (1.0-2.7) L Urine Color Yellow Urine Appearance Slightly cloudy Urine pH 6.5 (4.5-8.0) Urine Specific [place] 1.020 (1.005-1.035) Urine Protein 2+ (NEGATIVE) H Urine Glucose (UA) 1+ (NEGATIVE) H Urine Ketones 1+ (NEGATIVE) H Urine Occult Blood 5+ (NEGATIVE) H Urine Nitrite Positive (NEGATIVE) H Urine Bilirubin Negative (NEGATIVE) Urine Urobilinogen 1 MG/DL (0.0-1.0) H Urine Leukocyte Esterase 3+ (NEGATIVE) H Urine RBC Tntc /HPF (0 - 0) H Urine WBC Tntc /HPF (0 - 0) H Urine Squamous Epithelial Cells None /LPF (NONE/OCC) Urine Bacteria Many /HPF (NONE) H Urine Legionella Antigen Pending Phosphorus Level 1.8 mg/dL (2.5-4.8) L Current Medications Medications (Trade) Dose Ordered Sig/Xochilt Route PRN Reason Start Time Stop Time Status Last Admin Dose Admin Acetaminophen (Tylenol) 650 mg Q4H PRN ORAL fever 08/10/16 00:00 09/09/16 00:00 Al Hydroxide/Mg Hydroxide (Mylanta II) 30 ml Q6H PRN ORAL dyspepsia 08/10/16 00:00 09/09/16 00:00 Albuterol/ Ipratropium 3 ml 3 ml EVERY 4 HOURS PRN HHN Shortness of Breath 08/10/16 00:00 08/15/16 00:00 Cefepime HCl/ Dextrose (Maxipime/D5W) 55 ml @ 110 mls/hr EVERY 12 HOURS IV 08/10/16 09:00 08/17/16 08:59 08/10/16 09:11 Heparin Sodium (Porcine) (Heparin 5000 units/ml) 5,000 units EVERY 12 HOURS SUBQ 08/10/16 09:00 09/09/16 08:59 08/10/16 09:14 Insulin Aspart (NovoLOG) Q6HR SUBQ 08/10/16 12:00 09/09/16 11:59 08/10/16 12:13 Nitroglycerin (Ntg) 0.4 mg Q5M PRN SL Prn Chest Pain 08/10/16 00:00 09/09/16 00:00 Ondansetron HCl (Zofran) 4 mg Q6H PRN IVP Nausea & Vomiting 08/10/16 00:00 09/09/16 00:00 Polyethylene Glycol (Miralax) 17 gm DAILYPRN PRN ORAL Constipation 08/10/16 00:00 09/09/16 00:00 Promethazine HCl/ Codeine (Phenergan with Codeine) 5 ml Q4H PRN ORAL For Cough 08/10/16 00:00 09/09/16 00:00 Temazepam (Restoril) 15 mg HSPRN PRN ORAL Insomnia 08/10/16 00:00 08/17/16 00:00 Devika Gaitan M.D. August 10, 2016 13:47
[2016-08-10] MEDS: Vancomycin 1.25 GM in D5W 275 ML IVPB SCH (15:39)
[2016-08-10] MEDS ORDERED: Sterile Water Irrig 1000ml IRRIG ONE (16:14)
[2016-08-10] MEDS ORDERED: Tubing IV Secondary IV ONE (16:14)
--- NOTE | 2016-08-10 19:45 | History and Physical Report ---
DATE OF ADMISSION: 08/10/2016 TIME SEEN: At a.m. ATTENDING PHYSICIAN: Tyler Lopez D.O. CONSULTANTS: 1. Lindsay Salter M.D. 2. Dr. Wilde. CHIEF COMPLAINT: Fever, UTI, and sepsis. BRIEF HISTORY: This is a 66-year-old male from [facility], presents to [facility] with history of fever and abnormal labs of elevated white count. The patient was admitted to the medical floor for UTI, sepsis, and fever. Currently, calm, lethargic, confused in bed, not talking much. REVIEW OF SYSTEMS: Unavailable. PAST MEDICAL HISTORY: Include CVA, diabetes, renal insufficiency, and dementia. PAST SURGICAL HISTORY: G-tube. ALLERGIES: Denies. MEDICATIONS: Include NovoLog, cefepime, heparin, albuterol, Tylenol, MiraLax, Zofran, Restoril, Mylanta, nitroglycerin, and Phenergan With Codeine. SOCIAL HISTORY: No smoking. No alcohol. No intravenous drug use. FAMILY HISTORY: Noncontributory. PHYSICAL EXAMINATION: GENERAL: Lethargic, in bed, oriented x1, in no acute distress. VITAL SIGNS: Show temperature is 97 degrees, pulse 74, respirations 20, and blood pressure 112/75. CARDIOVASCULAR: Distant. No murmur. LUNGS: Poor exchange. ABDOMEN: Positive bowel sounds. Nontender and nondistended. EXTREMITIES: No cyanosis, clubbing, or edema. NEUROLOGIC: The patient moves all extremities, but slightly weak. LABORATORY DATA: Labs at this time show white count of 26, otherwise CBC is normal. BMP shows glucose 157 and potassium 3.3, otherwise BMP is normal. Urinalysis show 5+ occult blood and 3+ leukocyte esterase. ASSESSMENT: 1. Fever 2. Urinary tract infection. 3. Sepsis. 4. Diabetes. 5. Cerebrovascular accident. 6. Renal insufficiency. 7. Dementia. 8. Gastrostomy tube. 9. Hypokalemia. PLAN: Continue premedications. OT/PT. Dietary evaluation. Antibiotics per Infectious Disease. We will continue to follow the patient. Blood sugar control. We will check CBC and BMP in the morning. Dr. Salter and Dr. Wilde to consult. Tyler Lopez D.O. DR: JUANA JOB#: [id number] CC:
--- NOTE | 2016-08-10 22:15 | Consultation ---
DATE OF CONSULTATION: INFECTIOUS DISEASE CONSULTATION CONSULTING PHYSICIAN: Devika Gaitan M.D. REFERRING PHYSICIAN: Tyler Lopez D.O. REASON FOR CONSULTATION: Sepsis with urinary tract infection, recommendation for antibiotics therapy. HISTORY OF PRESENT ILLNESS: The patient is a 66-year-old male with history of diabetes, dementia, dysphagia, status post PEG tube placement, was sent to the emergency room at [facility] for urine infection and possible sepsis. The patient had no symptom at the [facility] of fever or chills. No shortness of breath. No hematuria. No diarrhea. No skin rash. But due to the fact his urine was found to be cloudy and infected, he was sent for evaluation and treatment. The patient is a poor historian, cannot provide any history. History was mainly obtained from the medical records. PAST MEDICAL HISTORY: Significant for hypertension, diabetes, cardiac disease, dysphagia, cardiovascular accident, aphasia, and weakness. PAST SURGICAL HISTORY: He has PEG tube placement. ALLERGIES: No known drug allergy. MEDICATIONS: The patient was started on Zosyn in the emergency room and now he is on cefepime by the admitting physician. SOCIAL HISTORY: He is [facility] resident. No recent drugs, tobacco, or alcohol. FAMILY HISTORY: Unable to obtain. PHYSICAL EXAMINATION: VITAL SIGNS: Temperature 97.5, pulse 99, respirations 18, blood pressure 120/74, and pulse oximetry 94% on nasal cannula. GENERAL: A middle-aged male, up in bed, awake, alert, but demented, not in acute distress. HEENT: Normocephalic and atraumatic. Pupils are reactive to light. Moist oral mucosa. No exudate. NECK: Supple. No lymphadenopathy. CARDIOVASCULAR: Regular rate and rhythm. No murmur. LUNGS: Clear bilaterally. No wheezing or rhonchi. ABDOMEN: Soft, nontender, and nondistended. Positive bowel sounds. No hepatosplenomegaly or ascites. EXTREMITIES: No edema or cyanosis. LABORATORY AND DIAGNOSTIC DATA: Labs showed white count of 26.8, hemoglobin of 14.4, and platelet count of 213,000. BUN of 14 and creatinine of 0.8. AST of 15, ALT of 15, and alkaline phosphatase of 78. Urinalysis showed positive nitrites, +3 leukocyte esterase, WBC too numerous to count, and many bacteria in the urine. IMAGING: Chest x-ray showed no acute disease. ASSESSMENT AND RECOMMENDATION: 1. Urinary tract infection. We will continue cefepime for now and send urine for culture pending results. We will tailor antibiotics as needed. 2. Sepsis suspect due to urinary tract infection. We will continue cefepime. Add vancomycin until his blood culture is negative for 48 hours at least. We will deescalate his antibiotics as per his culture results. 3. Diabetes. Recommend tight glycemic control to keep blood glucose between 80 to 120. Devika Gaitan M.D. DR: JANIA JOB#: [id number] CC:
[2016-08-11] VITALS: BP 115/70
[2016-08-11] MEDS: NovoLOG Insulin Flexpen SUBQ SCH ×4 (00:36→18:06)
[2016-08-11 04:00] VITALS: BP 125/72
[2016-08-11] MEDS: Vancomycin 1.25 GM in D5W 275 ML IVPB SCH ×2 (04:13→16:51)
--- NOTE | 2016-08-11 07:57 | General Progress Note ---
Assessment/Plan Problem List: (1) Sepsis ICD Codes: A41.9 - Sepsis, unspecified organism SNOMED: 01733461 Qualifiers: Qualified Codes: A41.9 - Sepsis, unspecified organism (2) UTI (urinary tract infection) ICD Codes: N39.0 - Urinary tract infection, site not specified SNOMED: 67292101 Qualifiers: Qualified Codes: N30.00 - Acute cystitis without hematuria (3) Diabetes ICD Codes: E11.9 - Type 2 diabetes mellitus without complications SNOMED: 73902571 (4) Renal insufficiency ICD Codes: N28.9 - Disorder of kidney and ureter, unspecified SNOMED: 514392498 Status: stable, progressing, tolerating diet Assessment/Plan ot pt diet ivf abx cbc bmp am Subjective Constitutional: Reports: weakness Allergies: Coded Allergies: No Known Allergies (Unverified , 04/14/16) All Systems: reviewed and negative except above Subjective sleepy calm Objective Last 24 Hour Vital Signs Date Time Temp Pulse Resp B/P Pulse Ox O2 Delivery O2 Flow Rate FiO2 08/11/16 04:00 97.9 68 20 125/72 97 Room Air 08/11/16 00:00 97.9 78 20 115/70 96 Room Air 08/10/16 20:00 97.9 84 20 112/71 96 Room Air 08/10/16 18:35 92 18 Room Air 08/10/16 16:17 97.0 93 16 126/71 95 Room Air 08/10/16 12:23 97.5 99 18 120/74 94 Nasal Cannula 08/10/16 08:00 98.1 93 14 120/67 94 Room Air Intake and Output 08/10/16 08/11/16 19:00 07:00 Intake Total 942.416 ml 852.416 ml Balance 942.416 ml 852.416 ml Intake Free Water 160 ml 100 ml IV Total 422.416 ml 422.416 ml Tube Feeding 360 ml 330 ml # Voids 2 # Bowel Movements 1 Laboratory Tests 08/10/16 12:50: White Blood Count 18.2H, Red Blood Count 4.11L, Hemoglobin 12.7L, Hematocrit 36.6L, Mean Corpuscular Volume 89, Mean Corpuscular Hemoglobin 30.9, Mean Corpuscular Hemoglobin Concent 34.7, Red Cell Distribution Width 12.2, Platelet Count 181, Mean Platelet Volume 8.6, Neutrophils (%) (Auto) , Lymphocytes (%) ( Auto) , Monocytes (%) (Auto) , Eosinophils (%) (Auto) , Basophils (%) (Auto) , Differential Total Cells Counted 100, Neutrophils % (Manual) 74, Lymphocytes % ( Manual) 20, Monocytes % (Manual) 6, Eosinophils % (Manual) 0, Basophils % ( Manual) 0, Band Neutrophils 0, Platelet Estimate Adequate, Platelet Morphology Normal, Red Blood Cell Morphology Normal, Sodium Level 143, Potassium Level 3.5 , Chloride Level 105, Carbon Dioxide Level 24, Anion Gap 14, Blood Urea Nitrogen 10, Creatinine 0.6L, Estimat Glomerular Filtration Rate > 60, Glucose Level 130H, Calcium Level 8.5L, Phosphorus Level 1.8L, Albumin 3.0L Height (Feet): 5 Height (Inches): 5.00 Weight (Pounds): 150 General Appearance: lethargic, confused EENT: normal ENT inspection Neck: normal alignment Cardiovascular: normal peripheral pulses, normal rate, regular rhythm Respiratory/Chest: chest wall non-tender, lungs clear, normal breath sounds Abdomen: normal bowel sounds, non tender, soft Extremities: normal inspection Edema: no edema noted Arm (L), no edema noted Arm (R), no edema noted Leg (L), no edema noted Leg (R), no edema noted Pedal (L), no edema noted Pedal (R), no edema noted Generalized Neurologic: motor weakness Skin: normal pigmentation, warm/dry SARAH THOMAS August 11, 2016 07:57
[2016-08-11] MEDS: Cefepime HCl 1 GM in D5W 55 ML IV SCH ×2 (08:12→21:34)
[2016-08-11 08:15] VITALS: BP 114/74
[2016-08-11 08:27] LABS: BASOPHILS % (AUTO) 0.6 % (0.0-2.0); EOSINOPHILS % (AUTO) 3.2 % (0.0-3.0); LYMPHOCYTES % (AUTO) 28.7 % (20.0-45.0); MEAN CORPUSCULAR HEMOGLOBIN 31.6 PG (27.0-31.0); MEAN CORPUSCULAR HGB CONC 35.5 G/DL (32.0-36.0); MEAN CORPUSCULAR VOLUME 89 FL (80-99); MEAN PLATELET VOLUME 8.4 FL (6.5-10.1); MONOCYTES % (AUTO) 6.8 % (1.0-10.0); NEUTROPHILS % (AUTO) 60.8 % (45.0-75.0); PLATELET COUNT 178 K/UL (150-450); RED BLOOD COUNT 4.22 M/UL (4.70-6.10); RED CELL DISTRIBUTION WIDTH 12.2 % (11.6-14.8)
[2016-08-11 08:46] LABS: PROTHROMBIN TIME 10.1 SEC (9.30-11.50)
[2016-08-11] MEDS: Heparin 5000 units/ml inj SUBQ SCH ×2 (08:51→21:36)
[2016-08-11] MEDS ORDERED: NS 275ml ONE (09:06)
[2016-08-11] MEDS ORDERED: Tubing IV Secondary IV ONE (09:06)
[2016-08-11 09:13] LABS: ALANINE AMINOTRANSFERASE 11 U/L (3-41); ALBUMIN/GLOBULIN RATIO 0.8 (1.0-2.7); ANION GAP 14 (5-15); ASPARTATE AMINO TRANSFERASE 10 U/L (5-40); CALCIUM 9.2 mg/dL (8.6-10.2); CARBON DIOXIDE 25 mEQ/L (20-30); CHLORIDE 101 mEQ/L (98-107); CREATININE 0.6 mg/dL (0.7-1.2); GLOMERULAR FILTRATION RATE > 60 mL/min (>60); HEMOLYSIS 4; POTASSIUM 3.5 mEQ/L (3.4-4.9); SODIUM 140 mEQ/L (135-145); TOTAL PROTEIN 6.9 g/dL (6.6-8.7)
[2016-08-11 10:18] LABS: MAGNESIUM 1.8 mg/dL (1.7-2.5); PHOSPHORUS 2.3 mg/dL (2.5-4.8)
[2016-08-11 12:17] VITALS: BP 119/59
[2016-08-11 16:06] VITALS: BP 121/56
--- NOTE | 2016-08-11 18:33 | Pulmonology Progress Note ---
Assessment/Plan Problems: (1) Sepsis (2) Renal insufficiency (3) UTI (urinary tract infection) (4) prison resident (5) G-tube site cellulitis Assessment/Plan IV antibiotics wbc decreasing check cultures dvt prophylaxis aspiration precaution Subjective ROS Limited/Unobtainable: No Constitutional: Reports: no symptoms HEENT: Repors: no symptoms Allergies: Coded Allergies: No Known Allergies (Unverified , 04/14/16) Objective Last 24 Hour Vital Signs Date Time Temp Pulse Resp B/P Pulse Ox O2 Delivery O2 Flow Rate FiO2 08/11/16 16:06 98.8 111 23 121/56 99 Room Air 08/11/16 12:17 97.7 67 23 119/59 99 Room Air 08/11/16 08:15 97.6 78 19 114/74 96 Room Air 08/11/16 07:43 65 18 Room Air 08/11/16 04:00 97.9 68 20 125/72 97 Room Air 08/11/16 00:00 97.9 78 20 115/70 96 Room Air 08/10/16 20:00 97.9 84 20 112/71 96 Room Air 08/10/16 18:35 92 18 Room Air Intake and Output 08/10/16 08/11/16 19:00 07:00 Intake Total 942.416 ml 882.416 ml Balance 942.416 ml 882.416 ml Intake Free Water 160 ml 100 ml IV Total 422.416 ml 422.416 ml Tube Feeding 360 ml 360 ml # Voids 2 # Bowel Movements 1 General Appearance: WD/WN HEENT: normocephalic Respiratory/Chest: chest wall non-tender, lungs clear Cardiovascular: normal peripheral pulses, normal rate Abdomen: normal bowel sounds, soft, non tender Genitourinary: normal external genitalia Microbiology Date/Time Source Procedure Growth Status 08/09/16 23:50 Blood Blood Culture - Preliminary NO GROWTH AFTER 24 HOURS Resulted 08/09/16 23:45 Blood Blood Culture - Preliminary NO GROWTH AFTER 24 HOURS Resulted 08/10/16 00:40 Urine,Clean Catch Urine Culture - Preliminary Gram Negative Bacillus 1 Resulted Laboratory Tests 08/11/16 06:37: White Blood Count 9.0#, Red Blood Count 4.22L, Hemoglobin 13.3L, Hematocrit 37.5L, Mean Corpuscular Volume 89, Mean Corpuscular Hemoglobin 31.6H, Mean Corpuscular Hemoglobin Concent 35.5, Red Cell Distribution Width 12.2, Platelet Count 178, Mean Platelet Volume 8.4, Neutrophils (%) (Auto) 60.8, Lymphocytes (% ) (Auto) 28.7, Monocytes (%) (Auto) 6.8, Eosinophils (%) (Auto) 3.2H, Basophils (%) (Auto) 0.6, Prothrombin Time 10.1, Prothromb Time International Ratio 1.0, Activated Partial Thromboplast Time 30, Sodium Level 140, Potassium Level 3.5, Chloride Level 101, Carbon Dioxide Level 25, Anion Gap 14, Blood Urea Nitrogen 8 , Creatinine 0.6L, Estimat Glomerular Filtration Rate > 60, Glucose Level 158H, Calcium Level 9.2, Phosphorus Level 2.3L, Magnesium Level 1.8, Total Bilirubin 0.4, Aspartate Amino Transf (AST/SGOT) 10, Alanine Aminotransferase (ALT/SGPT) 11, Alkaline Phosphatase 84, Total Protein 6.9, Albumin 3.2L, Globulin 3.7, Albumin/Globulin Ratio 0.8L 08/11/16 15:30: Vancomycin Level Trough 10.9 Current Medications Medications (Trade) Dose Ordered Sig/Xochilt Route PRN Reason Start Time Stop Time Status Last Admin Dose Admin Acetaminophen (Tylenol) 650 mg Q4H PRN ORAL fever 08/10/16 00:00 09/09/16 00:00 Al Hydroxide/Mg Hydroxide (Mylanta II) 30 ml Q6H PRN ORAL dyspepsia 08/10/16 00:00 09/09/16 00:00 Albuterol/ Ipratropium 3 ml 3 ml EVERY 4 HOURS PRN HHN Shortness of Breath 08/10/16 00:00 08/15/16 00:00 Cefepime HCl/ Dextrose (Maxipime/D5W) 55 ml @ 110 mls/hr EVERY 12 HOURS IV 08/10/16 09:00 08/17/16 08:59 08/11/16 08:12 Heparin Sodium (Porcine) (Heparin 5000 units/ml) 5,000 units EVERY 12 HOURS SUBQ 08/10/16 09:00 09/09/16 08:59 08/11/16 08:51 Insulin Aspart Q6HR SUBQ 08/10/16 12:00 09/09/16 11:59 08/11/16 18:06 Nitroglycerin (Ntg) 0.4 mg Q5M PRN SL Prn Chest Pain 08/10/16 00:00 09/09/16 00:00 Ondansetron HCl (Zofran) 4 mg Q6H PRN IVP Nausea & Vomiting 08/10/16 00:00 09/09/16 00:00 Polyethylene Glycol (Miralax) 17 gm DAILYPRN PRN ORAL Constipation 08/10/16 00:00 09/09/16 00:00 Promethazine HCl/ Codeine (Phenergan with Codeine) 5 ml Q4H PRN ORAL For Cough 08/10/16 00:00 09/09/16 00:00 Temazepam (Restoril) 15 mg HSPRN PRN ORAL Insomnia 08/10/16 00:00 08/17/16 00:00 Vancomycin HCl/ Dextrose (Vancomycin/D5W) 275 ml @ 183.708 mls/hr Q12H IVPB 08/10/16 16:00 08/15/16 15:59 08/11/16 16:51 LUIGI JAMIL August 11, 2016 18:33
[2016-08-11 20:00] VITALS: BP 139/77
[2016-08-12] VITALS: BP 136/77
[2016-08-12] MEDS: NovoLOG Insulin Flexpen SUBQ SCH ×4 (01:14→18:00)
[2016-08-12 04:00] VITALS: BP 135/89
[2016-08-12] MEDS: Vancomycin 1.25 GM in D5W 275 ML IVPB SCH (04:38)
[2016-08-12 06:18] LABS: EOSINOPHILS % (AUTO) 2.6 % (0.0-3.0); LYMPHOCYTES % (AUTO) 29.9 % (20.0-45.0); MEAN CORPUSCULAR HEMOGLOBIN 31.3 PG (27.0-31.0); MEAN CORPUSCULAR HGB CONC 35.1 G/DL (32.0-36.0); MEAN CORPUSCULAR VOLUME 89 FL (80-99); MEAN PLATELET VOLUME 8.5 FL (6.5-10.1); NEUTROPHILS % (AUTO) 57.4 % (45.0-75.0); PLATELET COUNT 204 K/UL (150-450); RED CELL DISTRIBUTION WIDTH 11.9 % (11.6-14.8); WHITE BLOOD COUNT 6.8 K/UL (4.8-10.8)
[2016-08-12 06:34] LABS: ANION GAP 15 (5-15); CALCIUM 9.4 mg/dL (8.6-10.2); CARBON DIOXIDE 26 mEQ/L (20-30); CHLORIDE 100 mEQ/L (98-107); CREATININE 0.7 mg/dL (0.7-1.2); GLOMERULAR FILTRATION RATE > 60 mL/min (>60); HEMOLYSIS 4; POTASSIUM 3.4 mEQ/L (3.4-4.9); SODIUM 141 mEQ/L (135-145)
--- NOTE | 2016-08-12 07:45 | General Progress Note ---
Assessment/Plan Problem List: (1) Sepsis ICD Codes: A41.9 - Sepsis, unspecified organism SNOMED: [id number] Qualifiers: Qualified Codes: A41.9 - Sepsis, unspecified organism (2) UTI (urinary tract infection) ICD Codes: N39.0 - Urinary tract infection, site not specified SNOMED: 38599154 Qualifiers: Qualified Codes: N30.00 - Acute cystitis without hematuria (3) Diabetes ICD Codes: E11.9 - Type 2 diabetes mellitus without complications SNOMED: 03708302 (4) Renal insufficiency ICD Codes: N28.9 - Disorder of kidney and ureter, unspecified SNOMED: 890664134 Status: stable, progressing, tolerating diet Assessment/Plan ot pt diet ivf abx dc if clear by id Subjective Constitutional: Reports: weakness Allergies: Coded Allergies: No Known Allergies (Unverified , 04/14/16) All Systems: reviewed and negative except above Subjective sleepy calm Objective Last 24 Hour Vital Signs Date Time Temp Pulse Resp B/P Pulse Ox O2 Delivery O2 Flow Rate FiO2 08/12/16 04:00 97.3 62 20 135/89 98 Room Air 08/12/16 00:00 97.7 64 20 136/77 97 Room Air 08/11/16 20:00 97.7 69 20 139/77 97 Room Air 08/11/16 19:39 64 18 Room Air 08/11/16 16:06 98.8 111 23 121/56 99 Room Air 08/11/16 12:17 97.7 67 23 119/59 99 Room Air 08/11/16 08:15 97.6 78 19 114/74 96 Room Air Intake and Output 08/11/16 08/12/16 19:00 07:00 Intake Total 790.000 ml 1050 ml Output Total 600 ml 800 ml Balance 190.000 ml 250 ml Intake Free Water 100 ml IV Total 330.000 ml 330 ml Tube Feeding 360 ml 720 ml Output Urine Total 600 ml 800 ml # Voids 3 # Bowel Movements 1 Laboratory Tests 08/11/16 15:30: Vancomycin Level Trough 10.9 08/12/16 05:10: White Blood Count 6.8, Red Blood Count 4.60L, Hemoglobin 14.4, Hematocrit 41.0L , Mean Corpuscular Volume 89, Mean Corpuscular Hemoglobin 31.3H, Mean Corpuscular Hemoglobin Concent 35.1, Red Cell Distribution Width 11.9, Platelet Count 204, Mean Platelet Volume 8.5, Neutrophils (%) (Auto) 57.4, Lymphocytes (% ) (Auto) 29.9, Monocytes (%) (Auto) 9.0, Eosinophils (%) (Auto) 2.6, Basophils ( %) (Auto) 1.0, Sodium Level 141, Potassium Level 3.4, Chloride Level 100, Carbon Dioxide Level 26, Anion Gap 15, Blood Urea Nitrogen 8, Creatinine 0.7, Estimat Glomerular Filtration Rate > 60, Glucose Level 144H, Calcium Level 9.4 Height (Feet): 5 Height (Inches): 5.00 Weight (Pounds): 150 General Appearance: lethargic EENT: normal ENT inspection Neck: normal alignment Cardiovascular: normal peripheral pulses, normal rate, regular rhythm Respiratory/Chest: chest wall non-tender, lungs clear, normal breath sounds Abdomen: normal bowel sounds, non tender, soft Extremities: normal inspection Edema: no edema noted Arm (L), no edema noted Arm (R), no edema noted Leg (L), no edema noted Leg (R), no edema noted Pedal (L), no edema noted Pedal (R), no edema noted Generalized Neurologic: motor weakness Skin: normal pigmentation, warm/dry SARAH THOMAS August 12, 2016 07:45
[2016-08-12 08:15] VITALS: BP 124/75
[2016-08-12] MEDS: Cefepime HCl 1 GM in D5W 55 ML IV SCH (09:41)
[2016-08-12] MEDS: Heparin 5000 units/ml inj SUBQ SCH (09:43)
[2016-08-12 12:32] VITALS: BP 117/70
[2016-08-12] MEDS ORDERED: CEFEPIME 11 GM/50 ML IV (14:31)
--- NOTE | 2016-08-12 16:00 | Infectious Diseases Prog Note ---
Assessment/Plan Problems: (1) UTI (urinary tract infection) Assessment & Plan: continue cefepime for 7 more days. (2) Sepsis Assessment & Plan: due to UTI, with negative blood culture. continue cefepime only for 7 more days, stop vancomycin (3) Diabetes Assessment & Plan: recommend tight glycemic control to keep blood glucose between 80-120 Subjective ROS Limited/Unobtainable: Yes Allergies: Coded Allergies: No Known Allergies (Unverified , 04/14/16) Subjective he was up in bed, awake and comfortable , not in distress Objective Vital Signs Last 24 Hour Vital Signs Date Time Temp Pulse Resp B/P Pulse Ox O2 Delivery O2 Flow Rate FiO2 08/12/16 12:32 98.4 65 21 117/70 99 Room Air 08/12/16 08:15 97.7 76 23 124/75 99 Room Air 08/12/16 07:49 71 18 Room Air 08/12/16 04:00 97.3 62 20 135/89 98 Room Air 08/12/16 00:00 97.7 64 20 136/77 97 Room Air 08/11/16 20:00 97.7 69 20 139/77 97 Room Air 08/11/16 19:39 64 18 Room Air 08/11/16 16:06 98.8 111 23 121/56 99 Room Air Height (Feet): 5 Height (Inches): 5.00 Weight (Pounds): 150 General Appearance: WD/WN, no acute distress HEENT: normocephalic, atraumatic, anicteric, mucous membranes moist Respiratory/Chest: chest wall non-tender, lungs clear, normal breath sounds, no respiratory distress, no accessory muscle use Cardiovascular: normal peripheral pulses, normal rate, regular rhythm, no gallop/murmur, no JVD Abdomen: normal bowel sounds, soft, non tender, no organomegaly, non distended , no mass Extremities: no cyanosis, no clubbing Skin: no rash, no lesions Microbiology Date/Time Source Procedure Growth Status 08/09/16 23:50 Blood Blood Culture - Preliminary NO GROWTH AFTER 48 HOURS Resulted 08/09/16 23:45 Blood Blood Culture - Preliminary NO GROWTH AFTER 48 HOURS Resulted 08/10/16 02:17 Nasal Nares MRSA Culture - Final NO METHICILLIN RESISTANT STAPH AUREUS... Complete 08/10/16 00:40 Urine,Clean Catch Urine Culture - Final Proteus Mirabilis Complete Laboratory Tests Test 08/12/16 05:10 White Blood Count 6.8 K/UL (4.8-10.8) Red Blood Count 4.60 M/UL (4.70-6.10) L Hemoglobin 14.4 G/DL (14.2-18.0) Hematocrit 41.0 % (42.0-52.0) L Mean Corpuscular Volume 89 FL (80-99) Mean Corpuscular Hemoglobin 31.3 PG (27.0-31.0) H Mean Corpuscular Hemoglobin Concent 35.1 G/DL (32.0-36.0) Red Cell Distribution Width 11.9 % (11.6-14.8) Platelet Count 204 K/UL (150-450) Mean Platelet Volume 8.5 FL (6.5-10.1) Neutrophils (%) (Auto) 57.4 % (45.0-75.0) Lymphocytes (%) (Auto) 29.9 % (20.0-45.0) Monocytes (%) (Auto) 9.0 % (1.0-10.0) Eosinophils (%) (Auto) 2.6 % (0.0-3.0) Basophils (%) (Auto) 1.0 % (0.0-2.0) Sodium Level 141 mEQ/L (135-145) Potassium Level 3.4 mEQ/L (3.4-4.9) Chloride Level 100 mEQ/L (98-107) Carbon Dioxide Level 26 mEQ/L (20-30) Anion Gap 15 (5-15) Blood Urea Nitrogen 8 mg/dL (7-23) Creatinine 0.7 mg/dL (0.7-1.2) Estimat Glomerular Filtration Rate > 60 mL/min (>60) Glucose Level 144 mg/dL (74-106) H Calcium Level 9.4 mg/dL (8.6-10.2) Current Medications Medications (Trade) Dose Ordered Sig/Xochilt Route PRN Reason Start Time Stop Time Status Last Admin Dose Admin Acetaminophen (Tylenol) 650 mg Q4H PRN ORAL fever 08/10/16 00:00 09/09/16 00:00 Al Hydroxide/Mg Hydroxide (Mylanta II) 30 ml Q6H PRN ORAL dyspepsia 08/10/16 00:00 09/09/16 00:00 Albuterol/ Ipratropium 3 ml 3 ml EVERY 4 HOURS PRN HHN Shortness of Breath 08/10/16 00:00 08/15/16 00:00 Cefepime HCl/ Dextrose (Maxipime/D5W) 55 ml @ 110 mls/hr EVERY 12 HOURS IV 08/10/16 09:00 08/17/16 08:59 08/12/16 09:41 Heparin Sodium (Porcine) (Heparin 5000 units/ml) 5,000 units EVERY 12 HOURS SUBQ 08/10/16 09:00 09/09/16 08:59 08/12/16 09:43 Insulin Aspart (NovoLOG) Q6HR SUBQ 08/10/16 12:00 09/09/16 11:59 08/12/16 12:22 Nitroglycerin (Ntg) 0.4 mg Q5M PRN SL Prn Chest Pain 08/10/16 00:00 09/09/16 00:00 Ondansetron HCl (Zofran) 4 mg Q6H PRN IVP Nausea & Vomiting 08/10/16 00:00 09/09/16 00:00 Polyethylene Glycol (Miralax) 17 gm DAILYPRN PRN ORAL Constipation 08/10/16 00:00 09/09/16 00:00 Promethazine HCl/ Codeine (Phenergan with Codeine) 5 ml Q4H PRN ORAL For Cough 08/10/16 00:00 09/09/16 00:00 Temazepam (Restoril) 15 mg HSPRN PRN ORAL Insomnia 08/10/16 00:00 08/17/16 00:00 Devika Gaitan M.D. August 12, 2016 16:00
[2016-08-12 16:26] VITALS: BP 118/66
--- NOTE | 2016-08-12 22:55 | Pulmonology Progress Note ---
Assessment/Plan Problems: (1) Sepsis (2) Renal insufficiency (3) UTI (urinary tract infection) (4) skilled nursing resident (5) G-tube site cellulitis Assessment/Plan IV antibiotics wbc decreasing check cultures dvt prophylaxis aspiration precaution Subjective Allergies: Coded Allergies: No Known Allergies (Unverified , 04/14/16) Objective Last 24 Hour Vital Signs Date Time Temp Pulse Resp B/P Pulse Ox O2 Delivery O2 Flow Rate FiO2 08/12/16 16:26 98.2 67 22 118/66 95 Room Air 08/12/16 12:32 98.4 65 21 117/70 99 Room Air 08/12/16 08:15 97.7 76 23 124/75 99 Room Air 08/12/16 07:49 71 18 Room Air 08/12/16 04:00 97.3 62 20 135/89 98 Room Air 08/12/16 00:00 97.7 64 20 136/77 97 Room Air Intake and Output 08/11/16 08/12/16 19:00 07:00 Intake Total 790.000 ml 1080 ml Output Total 600 ml 800 ml Balance 190.000 ml 280 ml Intake Free Water 100 ml IV Total 330.000 ml 330 ml Tube Feeding 360 ml 750 ml Output Urine Total 600 ml 800 ml # Voids 3 # Bowel Movements 1 Microbiology Date/Time Source Procedure Growth Status 08/09/16 23:50 Blood Blood Culture - Preliminary NO GROWTH AFTER 48 HOURS Resulted 08/09/16 23:45 Blood Blood Culture - Preliminary NO GROWTH AFTER 48 HOURS Resulted 08/10/16 02:17 Nasal Nares MRSA Culture - Final NO METHICILLIN RESISTANT STAPH AUREUS... Complete 08/10/16 00:40 Urine,Clean Catch Urine Culture - Final Proteus Mirabilis Complete Laboratory Tests 08/12/16 05:10: White Blood Count 6.8, Red Blood Count 4.60L, Hemoglobin 14.4, Hematocrit 41.0L , Mean Corpuscular Volume 89, Mean Corpuscular Hemoglobin 31.3H, Mean Corpuscular Hemoglobin Concent 35.1, Red Cell Distribution Width 11.9, Platelet Count 204, Mean Platelet Volume 8.5, Neutrophils (%) (Auto) 57.4, Lymphocytes (% ) (Auto) 29.9, Monocytes (%) (Auto) 9.0, Eosinophils (%) (Auto) 2.6, Basophils ( %) (Auto) 1.0, Sodium Level 141, Potassium Level 3.4, Chloride Level 100, Carbon Dioxide Level 26, Anion Gap 15, Blood Urea Nitrogen 8, Creatinine 0.7, Estimat Glomerular Filtration Rate > 60, Glucose Level 144H, Calcium Level 9.4 LUIGI JAMIL August 12, 2016 22:55
--- NOTE | 2016-08-13 08:00 | Cardiology Report ---
APPROVED REPORT EKG Measurement Heart [id number] Suspect arm lead reversal, interpretation assumes no reversal Multifocal atrial rhythm Left posterior fascicular block Inferior infarct, age undetermined Abnormal ECG
--- NOTE | 2016-08-14 08:45 | Discharge Summary ---
Discharge Summary Hospital Course Date of Admission August 10, 2016 at 00:47 Date of Discharge August 12, 2016 at 18:36 Admitting Diagnosis Sepsis HPI Lowell Gutiérrez is a 66 year old male who was admitted on August 10, 2016 at 00:47 for Sepsis Hospital Course dc summary#[id number] Discharge Medications Continued Medications: Acetaminophen (Acetaminophen) 650 Mg/20.3 Ml Solution 650 MG ORAL Q4HR PRN for Prn Headache/Temp > 101, ML 0 Refills Aspirin* (Aspirin*) 81 Mg Tab.chew 81 MG GT DAILY, TAB Cefepime Hcl/Dextrose, Iso-Osm (Cefepime 1 Gm Injection) 1 Gm/50 Ml Froz.piggy 1 GM IV EVERY 12 HOURS for 7 Days, BAG Donepezil Hcl* (Aricept*) 10 Mg Tablet 10 MG GT DAILY, TAB Insulin Detemir (Levemir) 100 Unit/1 Ml Vial 40 UNITS SUBQ EVERY 12 HOURS, VIAL Insulin Regular, Human (Humulin R) 100 Unit/1 Ml Vial 0 SUBQ Q6HR PRN for Sliding Scale, VIAL Magnesium Oxide (Magnesium Oxide) 400 Mg Tablet 400 MG GT DAILY, #30 TAB 0 Refills Multivitamins* (Multivitamins*) 1 Each Tablet 1 TAB GT DAILY, TAB 0 Refills Nitroglycerin (Nitroglycerin) 0.4 Mg Tab.subl 0.4 MG SL every 5 mins, TAB Phosphorus (Phospha 250 Neutral Tablet) 250 Mg Tablet 500 MG GT TID, TAB Discharge Condition Upon Discharge: stable Discharge Disposition Patient was discharged to SNF Discharge Diagnoses: Discharge Instructions Discharge Instructions Special Instructions I have been assigned to complete a D/C Summary on this account. I was not involved in the patient management Michelle Strong NP (Vanchtein) August 14, 2016 08:45
--- NOTE | 2016-08-15 00:45 | Discharge Summary 2 SIG ---
DATE OF ADMISSION: 08/10/2016 DATE OF DISCHARGE: 08/12/2016 REASON FOR ADMISSION: The patient is a 66-year-old male, sent to emergency room for evaluation due to fever and abnormal laboratories. Workup in the emergency room revealed WBC of 26.8. Lactic acid of 1.5. Electrolytes and renal parameters were stable. Glucose was 157. Troponin negative. EKG normal sinus rhythm. Chest x-ray, no acute cardiopulmonary disease. Potassium was 3.3. The patient was started on the IV fluids. Wound culture was started on empiric antibiotics. Urinalysis with evidence of UTI. ADMITTING DIAGNOSES: Include, 1. Sepsis. 2. Urinary tract infection. 3. Diabetes. 4. History of cerebrovascular accident. 5. Dysphagia with gastrostomy tube. 6. Dementia. HOSPITAL COURSE: The patient was admitted. ID consult and pulmonary consult were requested. The patient was on empiric antibiotics, which were optimized later based on culture, blood culture negative. Urine culture positive for Proteus. Supplemental oxygen and pulmonary toilet was provided as needed. Prior to discharge, pulse oximetry was stable on room air. Potassium was initially repleted. Electrolytes remained stable. Blood sugar was managed with the sliding scale of insulin and remained stable. DVT and GI prophylaxis was provided. Strict aspiration precaution was maintained. The patient was able to tolerate tube feeding. DVT and GI prophylaxis was provided. Bowel regimen was instituted. The patient was stable for discharge to long-term facility. Continue IV antibiotics for additional seven days as per ID recommendation. DISCHARGE DIAGNOSES: Include, 1. Sepsis. 2. Urinary tract infection with Proteus. 3. Diabetes mellitus. 4. History of cerebrovascular accident. 5. Dysphagia with gastrostomy tube. 6. Dementia. DISCHARGE MEDICATIONS: See medication reconciliation list. Continue IV antibiotics for additional seven days as recommended by ID. DISCHARGE INSTRUCTIONS: The patient was discharged to long-term facility. FOLLOWUP: Follow up with medical doctor at the facility. Tyler Lopez D.O. I have been assigned to dictate discharge summary on this account and I was not involved in the patient's management. Michelle Strong N.P. (vanchtein) DR: DANNY JOB#: [id number] CC:
== END 2016-08-12 18:36 | DRG 872 ==
LOC: EDBD 23:30 → EMR 23:43 → 4E 08-10 00:47 → EDBEDREQ 08-10 01:19
DX: A41.9 Sepsis, unspecified organism (principal); F03.90 Unspecified dementia, unspecified severity, without behavioral disturbance, psychotic disturbance, mood disturbance, and anxiety; K94.22 Gastrostomy infection; N39.0 Urinary tract infection, site not specified; E11.9 Type 2 diabetes mellitus without complications; L03.319 Cellulitis of trunk, unspecified; Z43.1 Encounter for attention to gastrostomy; Z79.4 Long term (current) use of insulin; Z86.73 Personal history of transient ischemic attack (TIA), and cerebral infarction without residual deficits; R13.10 Dysphagia, unspecified; B96.4 Proteus (mirabilis) (morganii) as the cause of diseases classified elsewhere; N28.9 Disorder of kidney and ureter, unspecified
CPT/HCPCS: 36415; 71010; 80048; 80053; 80069; 80202; 81003; 82164; 82550; 82553; 82962; 83605; 83735; 84100; 84484; 85007; 85025; 85610; 85730; 87040; 87081; 87086; 87181; 93005; 94664; J1815

== ENCOUNTER 2017-06-20 09:19 | Inpatient (IN) | payer MEDICAID, MEDICARE ==
[~2017-06-20] VITALS: Ht 172.7 cm; Wt 63.5 kg
[~2017-06-20 09:19] MED LIST changes: +CEFEPIME 11 GM/50 ML IV; +HUMULIN R100 UNIT/1 SUBQ
[2017-06-20] MEDS ORDERED: Sodium Chloride 500ML 500 ML IV ONE (09:30)
[2017-06-20] MEDS ORDERED: Acetaminophen 650 MG SUPP RECTAL ONE (09:30)
[2017-06-20 10:13] LABS: HEMATOCRIT 46.9 % (42.0-52.0); HEMOGLOBIN 15.7 G/DL (14.2-18.0); MEAN CORPUSCULAR VOLUME 92 FL (80-99); PLATELET COUNT 164 K/UL (150-450); RED BLOOD COUNT 5.09 M/UL (4.70-6.10); RED CELL DISTRIBUTION WIDTH 13.1 % (11.6-14.8); WHITE BLOOD COUNT 22.3 K/UL (4.8-10.8)
[2017-06-20 10:20] VITALS: BP 120/84
[2017-06-20 10:27] LABS: ANION GAP 11 mmol/L (5-15); BLOOD UREA NITROGEN 35 mg/dL (7-18); CARBON DIOXIDE 23 MMOL/L (21-32); CHLORIDE 125 MMOL/L (98-107); CREATININE 1.3 MG/DL (0.55-1.30); POTASSIUM 3.4 MMOL/L (3.5-5.1); SODIUM 159 MMOL/L (136-145)
[2017-06-20] MEDS ORDERED: ASPIR 8181 MG ORAL (10:28)
[2017-06-20] MEDS ORDERED: ARICEPT10 MG ORAL (10:28)
[2017-06-20] MEDS ORDERED: MAGNESIUM OXID400 M1 ORAL (10:28)
[2017-06-20] MEDS ORDERED: MULTI VITAMIN1 EACH ORAL (10:28)
[2017-06-20] MEDS ORDERED: LEVEMIR100 UNIT/1 SUBQ (10:28)
[2017-06-20 10:40] LABS: ALANINE AMINOTRANSFERASE 30 U/L (12-78); ALBUMIN 2.8 G/DL (3.4-5.0); ALBUMIN/GLOBULIN RATIO 0.6 (1.0-2.7); ALKALINE PHOSPHATASE 104 U/L (46-116); ASPARTATE AMINO TRANSFERASE 22 U/L (15-37); CKMB < 0.5 NG/ML (0.0-3.6); CREATINE KINASE 612 U/L (26-308)
[2017-06-20 11:13] LABS: APPEARANCE,URINE CLEAR; BILIRUBIN, URINE NEGATIVE (NEGATIVE); GLUCOSE, URINE (UA) 4+ (NEGATIVE); KETONES,URINE 2+ (NEGATIVE); LEUKOCYTE ESTERASE ,URINE 1+ (NEGATIVE); NITRITE,URINE NEGATIVE (NEGATIVE); PH,URINE 5 (4.5-8.0); PROTEIN,URINE 3+ (NEGATIVE); UROBILINOGEN,URINE 1 MG/DL (0.0-1.0)
[2017-06-20] MEDS ORDERED: Azithromycin 500 MG in D5W 275 ML IVPB ONE (11:15)
[2017-06-20] MEDS ORDERED: Piperacillin/Tazobactam 3.375 GM in D5W 110 ML IVPB ONE (11:15)
[2017-06-20 11:24] LABS: COLOR,URINE YELLOW
--- NOTE | 2017-06-20 12:07 | Emergency Room Report ---
History of Present Illness General Chief Complaint: Fever Source: Patient, EMS Present Illness HPI 67-year-old male presents ED for evaluation. Patient brought from assisted for evaluation of fever. Noted by nursing staff today. Febrile in triage. Also noted be tachycardic and with crackles and congestion on exam. Upon arrival patient showing no signs of distress. Patient does have dementia unable to provide any additional history at this time. No other aggravating relieving factors. No other associated symptoms Allergies: Coded Allergies: No Known Allergies (Unverified , 04/14/16) Patient History Past Medical History: GERD, CVA/TIA, dementia Immunizations: UTD Reviewed Nursing Documentation: PMH: Agreed; PSxH: Agreed Nursing Documentation-PMH Hx Cardiac Problems: No Hx Hypertension: Yes Hx Diabetes: Yes Hx Cancer: No Hx Gastrointestinal Problems: Yes - g tube, GERD. Hx Neurological Problems: Yes - difficulty walking. generalized muscle weakness , dementia Hx Cerebrovascular Accident: Yes Hx Speech Problem: Yes Hx Aphasia: Yes Hx Dysphasia: Yes Hx Weakness: Yes - generalized Review of Systems All Other Systems: limited Physical Exam Vital Signs Date Time Temp Pulse Resp B/P (MAP) Pulse Ox O2 Delivery O2 Flow Rate FiO2 06/20/17 09:13 120 22 125/72 94 Nasal Cannula 2.0 06/20/17 10:08 101.0 Sp02 EP Interpretation: reviewed, normal General Appearance: other - dementia Head: normocephalic Eyes: bilateral eye normal inspection, bilateral eye PERRL ENT: normal ENT inspection Neck: normal inspection Respiratory: crackles Cardiovascular #1: no edema, tachycardia Gastrointestinal: normal bowel sounds, non tender, soft, non-distended, no guarding, no rebound Rectal: deferred Genitourinary: no CVA tenderness Musculoskeletal: normal inspection Neurologic: other - dementia Psychiatric: other - dementia Skin: normal inspection Lymphatic: normal inspection Medical Decision Making Diagnostic Impression: Primary Impression: Pneumonia Qualified Codes: J18.9 - Pneumonia, unspecified organism Additional Impressions: Sepsis Qualified Codes: A41.9 - Sepsis, unspecified organism Hypernatremia ER Course Hospital Course 67-year-old male presents ED with fever, congestion, slightly low oxygen on room air Differential diagnoses include: Pneumonia, CHF exacerbation, pneumothorax, fluid overload Clinical course Patient placed on stretcher. On cafeteria monitor with hypoxia on room air and tachycardia. After initial history and physical, I ordered Tylenol. I ordered labs, IV fluids, EKG, chest x-ray, blood cultures, UA. Patient placed on nasal cannula with O2 saturation improving Labs - marked leukocytosis, hemoglobin/hematocrit stable, Na 159, lactate 2, troponins 0.018 CXR bilateral hilar patchy/infiltrates EKG - sinus tachycardia, no acute ischemic changes interpreted by me Patient O2 sat remains above 90% on nasal cannula. given 30cc/kg fluid bolus tachycardia improved with IVFs. given abx Case discussed with Dr. Lopez and he agreed to the patient to his service for further care and support I feel this is a highly complex case requiring extensive working including EKG/ Rhythm strip, Xray/CT/US, Blood/urine lab work, repeat exams while in ED, and administration of strong opiates/narcotics for pain control, admission to hospital or close patient follow up. Diagnosis - pneumonia, sepsis, hypernatremia Patient admitted to telemetry in serious condition Labs Test 06/20/17 09:50 06/20/17 10:35 White Blood Count 22.3 K/UL (4.8-10.8) Red Blood Count 5.09 M/UL (4.70-6.10) Hemoglobin 15.7 G/DL (14.2-18.0) Hematocrit 46.9 % (42.0-52.0) Mean Corpuscular Volume 92 FL (80-99) Mean Corpuscular Hemoglobin 30.7 PG (27.0-31.0) Mean Corpuscular Hemoglobin Concent 33.4 G/DL (32.0-36.0) Red Cell Distribution Width 13.1 % (11.6-14.8) Platelet Count 164 K/UL (150-450) Mean Platelet Volume 11.3 FL (6.5-10.1) Neutrophils (%) (Auto) % (45.0-75.0) Lymphocytes (%) (Auto) % (20.0-45.0) Monocytes (%) (Auto) % (1.0-10.0) Eosinophils (%) (Auto) % (0.0-3.0) Basophils (%) (Auto) % (0.0-2.0) Differential Total Cells Counted 100 Neutrophils % (Manual) 81 % (45-75) Lymphocytes % (Manual) 11 % (20-45) Monocytes % (Manual) 8 % (1-10) Eosinophils % (Manual) 0 % (0-3) Basophils % (Manual) 0 % (0-2) Band Neutrophils 0 % (0-8) Platelet Estimate Adequate Platelet Morphology Normal Red Blood Cell Morphology Normal Sodium Level 159 MMOL/L (136-145) Potassium Level 3.4 MMOL/L (3.5-5.1) Chloride Level 125 MMOL/L (98-107) Carbon Dioxide Level 23 MMOL/L (21-32) Anion Gap 11 mmol/L (5-15) Blood Urea Nitrogen 35 mg/dL (7-18) Creatinine 1.3 MG/DL (0.55-1.30) Estimat Glomerular Filtration Rate 55.1 mL/min (>60) Glucose Level 339 MG/DL (74-106) Lactic Acid Level 2.00 mmol/L (0.66-2.22) Calcium Level 8.0 MG/DL (8.5-10.1) Total Bilirubin 1.0 MG/DL (0.2-1.0) Aspartate Amino Transf (AST/SGOT) 22 U/L (15-37) Alanine Aminotransferase (ALT/SGPT) 30 U/L (12-78) Alkaline Phosphatase 104 U/L (46-116) Total Creatine Kinase 612 U/L (26-308) Creatine Kinase MB < 0.5 NG/ML (0.0-3.6) Creatine Kinase MB Relative Index Troponin I 0.018 ng/mL (0.000-0.056) Pro-B-Type Natriuretic Peptide 97 pg/mL (0-125) Total Protein 7.4 G/DL (6.4-8.2) Albumin 2.8 G/DL (3.4-5.0) Globulin 4.6 g/dL Albumin/Globulin Ratio 0.6 (1.0-2.7) Urine Color Yellow Urine Appearance Clear Urine pH 5 (4.5-8.0) Urine Specific [place] 1.020 (1.005-1.035) Urine Protein 3+ (NEGATIVE) Urine Glucose (UA) 4+ (NEGATIVE) Urine Ketones 2+ (NEGATIVE) Urine Occult Blood 5+ (NEGATIVE) Urine Nitrite Negative (NEGATIVE) Urine Bilirubin Negative (NEGATIVE) Urine Urobilinogen 1 MG/DL (0.0-1.0) Urine Leukocyte Esterase 1+ (NEGATIVE) Urine RBC 15-20 /HPF (0 - 0) Urine WBC 2-4 /HPF (0 - 0) Urine Squamous Epithelial Cells Occasional /LPF Urine Bacteria Occasional /HPF (NONE) EKG Diagnostic Results Rate: tachycardiac Rhythm: NSR ST Segments: no acute changes ASA given to the pt in ED: No Rhythm Strip Diag. Results EP Interpretation: yes Rhythm: NSR, no PVC's, no ectopy Chest X-Ray Diagnostic Results Chest X-Ray Diagnostic Results : Chest X-Ray Ordered: Yes # of Views/Limited/Complete: 1 View Indication: Shortness of Breath EP Interpretation: Yes Interpretation: no effusion, no pneumothorax, other - patchy consolidation in L Lobe Impression: Other - ?PNA Electronically Signed by: Electronically signed by Cyrus Carballo MD Last Vital Signs Date Time Temp Pulse Resp B/P (MAP) Pulse Ox O2 Delivery O2 Flow Rate FiO2 06/20/17 10:20 101.2 114 17 120/84 94 Nasal Cannula 6.0 101.2 Status: improved Disposition: ADMITTED INPATIENT Condition: Serious Referrals: NON PHYSICIAN (PCP) Cyrus Carballo MD Jun 20, 2017 12:07
[2017-06-20 12:09] VITALS: BP 117/68
[2017-06-20] MEDS ORDERED: Miralax 17gm pkt ORAL PRN (12:45)
[2017-06-20] MEDS ORDERED: Albuterol/Ipratropium 3ml neb HHN PRN (12:45)
[2017-06-20] MEDS ORDERED: Promethazine/Codeine 5ml UD ORAL PRN (12:45)
[2017-06-20] MEDS ORDERED: LORazepam Inj 2mg/ml 1ml IV PRN (12:45)
[2017-06-20] MEDS ORDERED: Morphine Sulfate 4mg/ml Inj IVP PRN (12:45)
--- NOTE | 2017-06-20 13:57 | Diagnostic Imaging Report ---
Indication: Shortness of breath Technique: One view of the chest Comparison: 08/09/2016 Findings: Lungs and pleural spaces are clear. Heart size is normal Impression: No acute process
[2017-06-20 14:46] VITALS: BP 116/75
[2017-06-20 16:34] VITALS: BP 125/69
--- NOTE | 2017-06-20 16:45 | History and Physical Report ---
DATE OF ADMISSION: 06/20/2017 APPROXIMATE TIME: 12 noon. 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 Lindsay Salter M.D. 2. Aleks Bess M.D. 3. Rocco Perez M.D. 4. Marquez Sanders M.D. 5. Devin Schmitz M.D. CHIEF COMPLAINT: Shortness of breath, pneumonia, sepsis, elevated troponin. BRIEF HISTORY: The patient is a 67-year-old male from [facility] presented with increased shortness of breath and confusion, came to [place] ER, diagnosed with pneumonia, sepsis, and elevated troponin being admitted to telemetry shortly. Currently, calm, O2 NC, slight short of breath, slightly confused in the ER gurney. No complaint. REVIEW OF SYSTEMS: No chest pain. Slight short of breath. No nausea, vomiting, or diarrhea. PAST MEDICAL HISTORY: Includes diabetes and dementia. PAST SURGICAL HISTORY: Unknown MEDICATIONS: Include Zosyn, Zithromax, IV fluids. ALLERGIES: Denies. SOCIAL HISTORY: No smoking. No alcohol. No intravenous drug abuse. FAMILY HISTORY: Noncontributory. PHYSICAL EXAMINATION: GENERAL: Slightly confused in bed, O2 NC, slight short of breath, oriented x1, in no acute distress. VITAL SIGNS: Temperature initially was 101, now is 98. Pulse 102, respiratory rate 18, blood pressure 117/68. CARDIOVASCULAR: No murmur. LUNGS: Poor exchange. ABDOMEN: Bowel sound distant. EXTREMITIES: No cyanosis, clubbing, or edema. NEUROLOGIC: The patient moves all extremities, slightly weak. LABORATORY AND DIAGNOSTIC DATA: White count 22 otherwise CBC is normal. Sodium 159, potassium 3.4, chloride 125, BUN 35, glucose 339. Albumin 2.8. Urinalysis show 5+ occult blood, 1+ leukocyte esterase. ASSESSMENT: 1. UTI. 2. Shortness of breath. 3. Pneumonia. 4. Sepsis. 5. Fever. 6. Elevated troponin. 7. Diabetes. 8. Dementia. 9. Hypoalbuminemia. 10. 11. Dehydration. 12. Confusion. PLAN: 1. O2, pulmonary treatment. 2. Antibiotics per Infectious Diseases. 3. OT/ PT, dietary evaluation. 4. CBC and BMP in the morning. 5. IV fluids. 6. Resume home medications. 7. We will continue to follow the patient. Tyler Lopez D.O. DR: Sen JOB#: [id number] CC:
[2017-06-20 16:50] VITALS: BP 111/84
--- NOTE | 2017-06-20 17:09 | Cardiology Progress Note ---
Assessment/Plan Assessment/Plan The patient is seen and examined, full consult note will be dictated. Objective Last 24 Hour Vital Signs Date Time Temp Pulse Resp B/P (MAP) Pulse Ox O2 Delivery O2 Flow Rate FiO2 06/20/17 16:34 99.1 101 20 125/69 Nasal Cannula 4.0 99.1 06/20/17 14:46 98.5 95 24 116/75 99 Nasal Cannula 4.0 98.5 06/20/17 12:09 98.8 102 18 117/68 94 Nasal Cannula 6.0 98.8 06/20/17 10:20 101.2 114 17 120/84 94 Nasal Cannula 6.0 101.2 06/20/17 10:08 101.0 06/20/17 09:30 121 17 Nasal Cannula 6.0 06/20/17 09:13 120 22 125/72 94 Nasal Cannula 2.0 Laboratory Tests Test 06/20/17 09:50 06/20/17 10:35 06/20/17 12:15 White Blood Count 22.3 K/UL (4.8-10.8) *H Red Blood Count 5.09 M/UL (4.70-6.10) Hemoglobin 15.7 G/DL (14.2-18.0) Hematocrit 46.9 % (42.0-52.0) Mean Corpuscular Volume 92 FL (80-99) Mean Corpuscular Hemoglobin 30.7 PG (27.0-31.0) Mean Corpuscular Hemoglobin Concent 33.4 G/DL (32.0-36.0) Red Cell Distribution Width 13.1 % (11.6-14.8) Platelet Count 164 K/UL (150-450) Mean Platelet Volume 11.3 FL (6.5-10.1) H Neutrophils (%) (Auto) % (45.0-75.0) Lymphocytes (%) (Auto) % (20.0-45.0) Monocytes (%) (Auto) % (1.0-10.0) Eosinophils (%) (Auto) % (0.0-3.0) Basophils (%) (Auto) % (0.0-2.0) Differential Total Cells Counted 100 Neutrophils % (Manual) 81 % (45-75) H Lymphocytes % (Manual) 11 % (20-45) L Monocytes % (Manual) 8 % (1-10) Eosinophils % (Manual) 0 % (0-3) Basophils % (Manual) 0 % (0-2) Band Neutrophils 0 % (0-8) Platelet Estimate Adequate Platelet Morphology Normal Red Blood Cell Morphology Normal Sodium Level 159 MMOL/L (136-145) H Potassium Level 3.4 MMOL/L (3.5-5.1) L Chloride Level 125 MMOL/L (98-107) H Carbon Dioxide Level 23 MMOL/L (21-32) Anion Gap 11 mmol/L (5-15) Blood Urea Nitrogen 35 mg/dL (7-18) H Creatinine 1.3 MG/DL (0.55-1.30) Estimat Glomerular Filtration Rate 55.1 mL/min (>60) Glucose Level 339 MG/DL (74-106) H Lactic Acid Level 2.00 mmol/L (0.66-2.22) 1.90 mmol/L (0.66-2.22) Calcium Level 8.0 MG/DL (8.5-10.1) L Total Bilirubin 1.0 MG/DL (0.2-1.0) Aspartate Amino Transf (AST/SGOT) 22 U/L (15-37) Alanine Aminotransferase (ALT/SGPT) 30 U/L (12-78) Alkaline Phosphatase 104 U/L (46-116) Total Creatine Kinase 612 U/L (26-308) H Creatine Kinase MB < 0.5 NG/ML (0.0-3.6) Creatine Kinase MB Relative Index Troponin I 0.018 ng/mL (0.000-0.056) Pro-B-Type Natriuretic Peptide 97 pg/mL (0-125) Total Protein 7.4 G/DL (6.4-8.2) Albumin 2.8 G/DL (3.4-5.0) L Globulin 4.6 g/dL Albumin/Globulin Ratio 0.6 (1.0-2.7) L Urine Color Yellow Urine Appearance Clear Urine pH 5 (4.5-8.0) Urine Specific [place] 1.020 (1.005-1.035) Urine Protein 3+ (NEGATIVE) H Urine Glucose (UA) 4+ (NEGATIVE) H Urine Ketones 2+ (NEGATIVE) H Urine Occult Blood 5+ (NEGATIVE) H Urine Nitrite Negative (NEGATIVE) Urine Bilirubin Negative (NEGATIVE) Urine Urobilinogen 1 MG/DL (0.0-1.0) H Urine Leukocyte Esterase 1+ (NEGATIVE) H Urine RBC 15-20 /HPF (0 - 0) H Urine WBC 2-4 /HPF (0 - 0) Urine Squamous Epithelial Cells Occasional /LPF Urine Bacteria Occasional /HPF (NONE) Microbiology Date/Time Source Procedure Growth Status 06/20/17 10:35 Nasal Nares Influenza Types A,B Antigen (NILS) - Final Complete RENEE W[place] Jun 20, 2017 17:09
--- NOTE | 2017-06-20 17:41 | Consultation ---
History of Present Illness General Date patient seen: Jun 20, 2017 Chief Complaint: Fever Reason for Consultation: dyspnea Present Illness HPI 67-year-old male with hx of CVA, bed bound, dementia, DM, Gtube, long term resident presented to ED for evaluation of fever,noted by nursing staff today. Giselle was febrile in triage. He was noted to be tachycardic and with crackles and congestion on exam. Upon arrival patient showing no signs of distress. He is admitted to telemetry b/o sepsis and aspiration. Allergies: Coded Allergies: No Known Allergies (Unverified , 04/14/16) Medication History Scheduled Aspirin* (Aspirin*), 81 MG GT DAILY, (Reported) Aspirin* (Aspir 81*), 81 MG ORAL DAILY, (Reported) Cefepime Hcl/Dextrose, Iso-Osm (Cefepime 1 Gm Injection), 1 GM IV EVERY 12 HOURS , (Reported) Donepezil Hcl* (Aricept*), 10 MG GT DAILY, (Reported) Donepezil Hcl* (Aricept*), 10 MG ORAL DAILY, (Reported) Insulin Detemir (Levemir), 40 UNITS SUBQ EVERY 12 HOURS, (Reported) Insulin Detemir (Levemir), 0 SUBQ BID, (Reported) Magnesium Oxide (Magnesium Oxide), 400 MG GT DAILY, (Reported) Magnesium Oxide (Magnesium Oxide), 400 MG ORAL DAILY, (Reported) Multivitamin (Multi Vitamin Daily), 1 TAB ORAL DAILY, (Reported) Multivitamins* (Multivitamins*), 1 TAB GT DAILY, (Reported) Nitroglycerin (Nitroglycerin), 0.4 MG SL every 5 mins, (Reported) Phosphorus (Phospha 250 Neutral Tablet), 500 MG GT TID, (Reported) Scheduled PRN Acetaminophen (Acetaminophen), 650 MG ORAL Q4HR PRN for Prn Headache/Temp > 101, (Reported) Insulin Regular, Human (Humulin R), 0 SUBQ Q6HR PRN for Sliding Scale, (Reported ) Patient History Healthcare decision maker Resuscitation status Advanced Directive on File Past Medical/Surgical History Past Medical/Surgical History: (1) History of CVA (cerebrovascular accident) (2) Diabetes (3) G-tube site cellulitis Review of Systems All Other Systems: negative except mentioned in HPI Physical Exam General Appearance: WD/WN Lines, tubes and drains: peripheral HEENT: normocephalic, atraumatic Neck: non-tender, normal alignment Respiratory/Chest: chest wall non-tender, lungs clear Breasts: no masses Cardiovascular/Chest: normal peripheral pulses Abdomen: normal bowel sounds Genitourinary/Rectal: normal genital exam Extremities: normal range of motion Last 24 Hour Vital Signs Date Time Temp Pulse Resp B/P (MAP) Pulse Ox O2 Delivery O2 Flow Rate FiO2 06/20/17 17:14 98.4 90 14 111/84 100 Nasal Cannula 4.0 06/20/17 16:34 99.1 101 20 125/69 Nasal Cannula 4.0 99.1 06/20/17 14:46 98.5 95 24 116/75 99 Nasal Cannula 4.0 98.5 06/20/17 12:09 98.8 102 18 117/68 94 Nasal Cannula 6.0 98.8 06/20/17 10:20 101.2 114 17 120/84 94 Nasal Cannula 6.0 101.2 06/20/17 10:08 101.0 06/20/17 09:30 121 17 Nasal Cannula 6.0 06/20/17 09:13 120 22 125/72 94 Nasal Cannula 2.0 Laboratory Tests Test 06/20/17 09:50 06/20/17 10:35 06/20/17 12:15 White Blood Count 22.3 K/UL (4.8-10.8) *H Red Blood Count 5.09 M/UL (4.70-6.10) Hemoglobin 15.7 G/DL (14.2-18.0) Hematocrit 46.9 % (42.0-52.0) Mean Corpuscular Volume 92 FL (80-99) Mean Corpuscular Hemoglobin 30.7 PG (27.0-31.0) Mean Corpuscular Hemoglobin Concent 33.4 G/DL (32.0-36.0) Red Cell Distribution Width 13.1 % (11.6-14.8) Platelet Count 164 K/UL (150-450) Mean Platelet Volume 11.3 FL (6.5-10.1) H Neutrophils (%) (Auto) % (45.0-75.0) Lymphocytes (%) (Auto) % (20.0-45.0) Monocytes (%) (Auto) % (1.0-10.0) Eosinophils (%) (Auto) % (0.0-3.0) Basophils (%) (Auto) % (0.0-2.0) Differential Total Cells Counted 100 Neutrophils % (Manual) 81 % (45-75) H Lymphocytes % (Manual) 11 % (20-45) L Monocytes % (Manual) 8 % (1-10) Eosinophils % (Manual) 0 % (0-3) Basophils % (Manual) 0 % (0-2) Band Neutrophils 0 % (0-8) Platelet Estimate Adequate Platelet Morphology Normal Red Blood Cell Morphology Normal Sodium Level 159 MMOL/L (136-145) H Potassium Level 3.4 MMOL/L (3.5-5.1) L Chloride Level 125 MMOL/L (98-107) H Carbon Dioxide Level 23 MMOL/L (21-32) Anion Gap 11 mmol/L (5-15) Blood Urea Nitrogen 35 mg/dL (7-18) H Creatinine 1.3 MG/DL (0.55-1.30) Estimat Glomerular Filtration Rate 55.1 mL/min (>60) Glucose Level 339 MG/DL (74-106) H Lactic Acid Level 2.00 mmol/L (0.66-2.22) 1.90 mmol/L (0.66-2.22) Calcium Level 8.0 MG/DL (8.5-10.1) L Total Bilirubin 1.0 MG/DL (0.2-1.0) Aspartate Amino Transf (AST/SGOT) 22 U/L (15-37) Alanine Aminotransferase (ALT/SGPT) 30 U/L (12-78) Alkaline Phosphatase 104 U/L (46-116) Total Creatine Kinase 612 U/L (26-308) H Creatine Kinase MB < 0.5 NG/ML (0.0-3.6) Creatine Kinase MB Relative Index Troponin I 0.018 ng/mL (0.000-0.056) Pro-B-Type Natriuretic Peptide 97 pg/mL (0-125) Total Protein 7.4 G/DL (6.4-8.2) Albumin 2.8 G/DL (3.4-5.0) L Globulin 4.6 g/dL Albumin/Globulin Ratio 0.6 (1.0-2.7) L Urine Color Yellow Urine Appearance Clear Urine pH 5 (4.5-8.0) Urine Specific [place] 1.020 (1.005-1.035) Urine Protein 3+ (NEGATIVE) H Urine Glucose (UA) 4+ (NEGATIVE) H Urine Ketones 2+ (NEGATIVE) H Urine Occult Blood 5+ (NEGATIVE) H Urine Nitrite Negative (NEGATIVE) Urine Bilirubin Negative (NEGATIVE) Urine Urobilinogen 1 MG/DL (0.0-1.0) H Urine Leukocyte Esterase 1+ (NEGATIVE) H Urine RBC 15-20 /HPF (0 - 0) H Urine WBC 2-4 /HPF (0 - 0) Urine Squamous Epithelial Cells Occasional /LPF Urine Bacteria Occasional /HPF (NONE) Microbiology Date/Time Source Procedure Growth Status 06/20/17 10:35 Nasal Nares Influenza Types A,B Antigen (NILS) - Final Complete Height (Feet): 5 Height (Inches): 8.00 Weight (Pounds): 140 Medications Current Medications Medications (Trade) Dose Ordered Sig/Xochilt Route PRN Reason Start Time Stop Time Status Last Admin Dose Admin Acetaminophen (Tylenol) 650 mg Q4H PRN ORAL FEVER (T>100.5F) 06/20/17 12:45 07/20/17 12:44 Albuterol/ Ipratropium (Albuterol/ Ipratropium) 3 ml Q4H PRN HHN Shortness of Breath 06/20/17 12:45 06/25/17 12:44 Cefepime HCl 2 gm/ Dextrose 110 ml @ 220 mls/hr Q12H IV 06/20/17 18:00 06/27/17 17:59 Dextrose (Dextrose 50%) 25 ml STAT PRN IV Hypoglycemia 06/20/17 12:45 07/20/17 12:44 Dextrose (Dextrose 50%) 50 ml STAT PRN IV Hypoglycemia 06/20/17 12:45 07/20/17 12:44 Donepezil HCl (Aricept) 10 mg DAILY GT 06/21/17 09:00 07/21/17 08:59 Heparin Sodium (Porcine) (Heparin 5000 units/ml) 5,000 units EVERY 12 HOURS SUBQ 06/20/17 21:00 07/20/17 20:59 Insulin Aspart (NovoLOG) BEFORE MEALS AND HS SUBQ 06/20/17 17:00 07/20/17 16:59 Lorazepam (Ativan 2mg/ml 1ml) 2 mg Q2H PRN IV For Anxiety 06/20/17 12:45 06/27/17 12:44 Morphine Sulfate (Morphine Sulfate) 4 mg Q4H PRN IVP Severe Pain (Pain Scale 7-10) 06/20/17 12:45 06/27/17 12:44 Ondansetron HCl (Zofran) 4 mg Q6H PRN IVP Nausea & Vomiting 06/20/17 12:45 07/20/17 12:44 Phosphorus (Phospha 250 Neutral) 500 mg TID GT 06/20/17 18:00 07/20/17 17:59 Polyethylene Glycol (Miralax) 17 gm DAILYPRN PRN ORAL Constipation 06/20/17 12:45 07/20/17 12:44 Promethazine HCl/ Codeine (Phenergan with Codeine) 5 ml Q4H PRN ORAL For Cough 06/20/17 12:45 07/20/17 12:44 Sodium Chloride 1,000 ml @ 50 mls/hr Q20H IV 06/20/17 14:00 07/20/17 13:59 06/20/17 15:15 Vancomycin HCl (Vanco rx to dose) 1 ea DAILY PRN MISC Per rx protocol 06/20/17 16:30 07/20/17 16:29 Vancomycin HCl 1 gm/Dextrose 275 ml @ 183.3 mls/ hr Q12H IVPB 06/20/17 20:00 06/25/17 19:59 Assessment/Plan Problem List: (1) Sepsis ICD Codes: A41.9 - Sepsis, unspecified organism SNOMED: 47943493 Qualifiers: Qualified Codes: A41.9 - Sepsis, unspecified organism (2) Aspiration pneumonia ICD Codes: J69.0 - Pneumonitis due to inhalation of food and vomit SNOMED: 372033818 (3) Renal insufficiency ICD Codes: N28.9 - Disorder of kidney and ureter, unspecified SNOMED: 120521277 (4) History of CVA (cerebrovascular accident) ICD Codes: Z86.73 - Personal history of transient ischemic attack (TIA), and cerebral infarction without residual deficits SNOMED: 716840114 (5) G-tube site cellulitis ICD Codes: K94.22 - Gastrostomy infection; L03.319 - Cellulitis of trunk, unspecified SNOMED: 172353864, 295700753 (6) Diabetes ICD Codes: E11.9 - Type 2 diabetes mellitus without complications SNOMED: 86181135 Assessment/Plan scott culture IV fluids IV abx check electrolytes dvt prophylaxis aspiration precaution Lindsay Salter MD Jun 20, 2017 17:41
[2017-06-20] MEDS: Cefepime HCl 2 GM in D5W 110 ML IV SCH (18:42)
[2017-06-20] MEDS: Phospha 250 Neutral tab GT SCH (18:44)
[2017-06-20] MEDS: NovoLOG Insulin Flexpen SUBQ SCH ×2 (18:46→20:15)
--- NOTE | 2017-06-20 19:00 | Consultation ---
DATE OF CONSULTATION: 06/20/2017 NEPHROLOGY CONSULTATION CONSULTING PHYSICIAN: Crista Lovett M.D. REFERRING PHYSICIAN: Tyler Lopez D.O. REASON FOR CONSULTATION: Acute renal failure, hypernatremia, hypokalemia, and electrolyte imbalance. HISTORY OF PRESENT ILLNESS: The patient is an unfortunate 67-year-old male with past medical history significant for history of CVA, status post percutaneous endoscopic gastrostomy placement, penitentiary resident, who was brought into [facility] for increasing congestion, shortness of breath, and confusion. The patient was found to be febrile having elevated white blood cell count, and also found to have an abnormal electrolyte including hypernatremia, hypokalemia, and acute renal failure. He was also found to have an elevated blood sugar. The patient consequently was admitted to a monitored bed. I was called for management of renal disease and electrolyte imbalance. Unfortunately, the patient is not able to provide meaningful history for me. Most of my history is obtained through reviewing the chart. PAST MEDICAL HISTORY: 1. History of CVA. 2. History of dementia. 3. History of hypertension. 4. History of diabetes. 5. History of dyslipidemia. 6. History of PEG placement. 7. History of GERD. ALLERGIES: No known drug allergies. SOCIAL HISTORY: Lives in penitentiary. There is no known history of tobacco, alcohol, or drug use. FAMILY HISTORY: Noncontributory. REVIEW OF SYSTEMS: Unable to obtain due to the patient's condition and mental status. PHYSICAL EXAMINATION: VITAL SIGNS: The patient has a temperature of 101, pulse was 120, respiratory rate of 20, and blood pressure 125/72. GENERAL: Chronically ill-looking male, in no acute distress. HEAD AND NECK: No JVP. No LAD. Head is atraumatic and normocephalic. Extraocular movement intact. Pupils are reactive to light and accommodation. LUNGS: He has bilateral rhonchi on both sides. CARDIAC: Tachy. S1 and S2. No murmur. No rub. ABDOMEN: Soft. G-tube is in place. Nontender and nondistended. EXTREMITIES: No edema. No clubbing. No cyanosis. LABORATORY DATA: Laboratory values revealed sodium 159, potassium 3.4, chloride 125, bicarb 23, BUN of 25, creatinine of 1.3, and glucose of 399. Calcium of 8. AST 22, ALT 13, and alkaline phosphatase of 104. BNP of 97. Total protein of 7.4. Albumin of 2.7. CBC revealed WBC count of 22,000, hemoglobin of 15, hematocrit of 46, and platelet count of 164,000. UA revealed specific gravity of 1.020, protein 3+, glucose 4+, ketones 2+, occult blood 2+, nitrite negative, wbc of 2 to 4, and rbc 15 to 20. Chest x-ray was negative. ASSESSMENT: 1. Hypernatremia. 2. Hypokalemia. 3. Hypocalcemia. 4. Hyperglycemia. 5. Acute versus chronic renal failure. 6. Febrile illness, most likely urinary tract infection. PLAN: Check the random urine protein creatinine ratio to calculate the proteinuria. Check the albumin. Replace the potassium. Free water via G-tube. Broad-spectrum antibiotics. Again, I would like to thank, Dr. Tyler Lopez, for allowing me to participate in the care of this patient. Crista Lovett M.D. DR: SHELLEY JOB#: [id number] CC:
--- NOTE | 2017-06-20 19:30 | Consultation ---
DATE OF CONSULTATION: 06/20/2017 CARDIOLOGY CONSULTATION CONSULTING PHYSICIAN: Aleks Bess M.D. REFERRING PHYSICIAN: Tyler Lopez D.O. REASON FOR CONSULTATION: Management of tachycardia. HISTORY OF PRESENT ILLNESS: The patient is a very pleasant, 67-year-old gentleman, who presents to the hospital for evaluation of fever from nursing facility. It was noted by nursing facility staff to be tachycardic and febrile and having crackles and congestion on physical examination. At the time of arrival to the hospital, he was found to be demented, was not capable of providing any history due to aphasia due to prior history of stroke. He did not have any complaints of chest pain or shortness of breath. Initial blood pressure was 125/72 mmHg and heart rate of 120. He was admitted to telemetry floor for further evaluation and management. Cardiology consultation was made at the request of Dr. Lopez for evaluation of tachycardia. The patient can respond to my questions with nodding and shaking. PAST MEDICAL HISTORY: Hypertension; diabetes mellitus; history of CVA, resulting to aphasia; history of GERD; history of dementia; and history of dysphagia, status post G-tube placement. PAST SURGICAL HISTORY: PEG placement. MEDICATIONS: List of medications, acetaminophen 650 mg q.4-6 h. p.r.n. temperature above 101 degrees and headaches, aspirin 81 mg G-tube daily, cefepime 1 g IV piggyback q.12 h. x7 days, donepezil 10 mg G-tube daily, insulin Levemir 40 units subcutaneous q.12 h., insulin Humulin sliding scale as needed, magnesium oxide 400 mg G-tube daily, multivitamin one tablet G-tube daily, nitroglycerin 0.4 mg sublingual every five minutes p.r.n. chest pain x3, and Phospha 250 Neutral 500 mg G-tube 3 times a day. ALLERGIES: No known drug allergies. SOCIAL HISTORY: Denies any use of tobacco, alcohol, or illicit drug use. REVIEW OF SYSTEMS: HEENT: Denies any headache, diplopia, or blurred vision. CONSTITUTIONAL: Admits to fever, but no weight loss, weight gain or generalized body weakness. CARDIOVASCULAR: Denies any chest pain, shortness breath, PND, orthopnea, or leg swelling. PULMONARY: Denies any cough, hemoptysis, or wheezing. GASTROINTESTINAL: Denies any nausea, vomiting, diarrhea, constipation, abdominal pain, or GI bleed. He has got G-tube in place. GENITOURINARY: Denies any hematuria, dysuria, or incontinence. NEUROLOGY: He is aphasic. Denies any signs of lateralization that this new. PHYSICAL EXAMINATION: GENERAL: The patient is a very unfortunate, 67-year-old gentleman, in no apparent respiratory distress, pleasant, aphasic. VITAL SIGNS: Blood pressure was 135/72, respirations 32, heart rate of 120, and pulse oximetry of 94% on nasal cannula. HEENT: Atraumatic and normocephalic. ENT, pupils are equal, round, and reactive to light and accommodation. Extraocular muscles are intact. NECK: JVP less than 5 cm. No carotid bruits. Carotid upstrokes 2+ bilaterally. CARDIOVASCULAR: Normal S1 and S2. Regular rate and rhythm. Tachycardic. No murmurs, gallops, or rubs. LUNGS: Clear to auscultation bilaterally. ABDOMEN: Soft, nontender, and nondistended. No hepatosplenomegaly. Positive bowel sounds. Positive G-tube in place. No evidence of edema, clubbing, or cyanosis. LABORATORY AND DIAGNOSTIC DATA: WBC was 22.3, hemoglobin of 15.7, hematocrit of 46.9, and platelet count was 164. Sodium was 159, potassium 3.4, chloride 125, carbon dioxide of 23, BUN of 35, creatinine 1.3, and glucose 339. Calcium was 8.0. Troponin I was 0.018 and ProBNP was 97. Chest x-ray showed no cardiopulmonary disease. A 12-lead electrocardiogram showed sinus tachycardia, rate of 118. No ST and T-wave abnormalities. ASSESSMENT AND PLAN: The patient is a very unfortunate, 67-year-old gentleman, seen in Cardiology consultation at the request of Dr. Lopez. 1. Sinus tachycardia. To me, going through the laboratory data and imaging, it seems to be hypovolemia with evidence of hypernatremia and prerenal azotemia. I would consider hydrating the patient with half-normal saline. The patient is also hyperglycemic, most likely having osmotic diuresis, which contributed to dehydration. Tight control of blood sugar is also warranted. At this time, there are no acute cardiovascular issues. We will continue to follow the patient's hemodynamics. There is no need for AV lico agents at this point. Treatment of sinus tachycardia is the treatment of the underlying disorder. 2. History of cerebrovascular accident with aphasia. I would consider aspirin and statin in this patient. 3. History of diabetes mellitus. 4. History of hypertension. Currently blood pressure is well controlled on diet only. I would like to thank Dr. Lopez for the courtesy of this consultation. Aleks Bess M.D. DR: AIYANA JOB#: [id number] CC:
[2017-06-20 20:00] VITALS: BP 126/70
[2017-06-20] MEDS: Vancomycin 1 GM in D5W 275 ML IVPB SCH (20:11)
[2017-06-20] MEDS: Heparin 5000 units/ml inj SUBQ SCH (20:13)
[2017-06-21] VITALS: BP 118/69
--- NOTE | 2017-06-21 01:28 | Consultation ---
Consult Note Consult Note CONSULT SATE 06/20/17 ( LATE ENTRY ) ID DIC # [id number] Rocco Perez MD Jun 21, 2017 01:27
--- NOTE | 2017-06-21 03:00 | Consultation ---
DATE OF CONSULTATION: 06/21/2017 INFECTIOUS DISEASE CONSULTATION CONSULTING PHYSICIAN: Rocco Perez M.D. REQUESTING PHYSICIAN: Tyler Lopez D.O. REASON FOR CONSULTATION: Evaluation of the patient for pneumonia, sepsis, and antibiotic management. HISTORY OF PRESENT ILLNESS: The patient is a 67-year-old male with multiple medical problems, who was transferred to this medical center for shortness of breath and sepsis. The patient has been coughing and was admitted with the impression of pneumonia. Infectious Disease consultation has been requested for further evaluation of the patient and antibiotic management. PAST MEDICAL HISTORY: Significant for, 1. CVA. 2. Diabetes. 3. Hypertension. 4. Status post PEG/dysphagia. MEDICATIONS: The patient is on IV vancomycin and cefepime. ALLERGIES: No known drug allergies. SOCIAL HISTORY: The patient lives in a retirement. FAMILY HISTORY: Not available. REVIEW OF SYSTEMS: Unobtainable. PHYSICAL EXAMINATION: VITAL SIGNS: Temperature 98 degrees, blood pressure 111/84, pulse 86, respiratory rate 18, and T-max 101.2. HEENT: No pale conjunctivae. No icterus. NECK: No lymphadenopathy. CHEST: Coarse breathing sounds. Mild crackles at the base of both lungs. HEART: S1 and S2. ABDOMEN: Soft. PEG tube in place. EXTREMITY: No sign of cellulitis or cyanosis. NEUROLOGIC: Lethargic. SKIN: Bilateral inguinal erythema. LABORATORY AND DIAGNOSTIC DATA: White blood cells 22.3, hemoglobin 15, and platelets 164,000. UA, 15 to 20 red blood cells and 2 to 4 white blood cells. BUN 35 and creatinine 1.3. Liver function tests unremarkable. Influenza test negative for influenza A and B. Blood culture is pending. Sputum culture is pending. Chest x-ray, no acute process. ASSESSMENT: The patient is a 67-year-old male with, 1. Fever. 2. Leukocytosis. 3. Sepsis. 4. healthcare-associated pneumonia (negative chest x-ray does not rule out since the patient has cough and has congested chest). Influenza screening test negative. 5. Bilateral groin candidiasis. 6. Rule out bacteremia. PLAN: 1. We will continue the patient on vancomycin and cefepime day #1. 2. Monitor CBC. 3. Monitor BMP. 4. Monitor cultures (blood, sputum). 5. Monitor chest x-ray. 6. Apply clotrimazole b.i.d. to the groin. 7. Based on the patient's clinical course and laboratories, we will do further recommendation. Thank you, Dr. Tyler Lopez, for allowing me to participate in the care of this this patient. I will follow the patient with you during this hospitalization. Rocco Perez M.D. DR: REBECA JOB#: [id number] CC:
[2017-06-21 04:00] VITALS: BP 122/68
[2017-06-21] MEDS: Cefepime HCl 2 GM in D5W 110 ML IV SCH ×2 (07:04→17:27)
[2017-06-21] MEDS: NovoLOG Insulin Flexpen SUBQ SCH ×4 (07:05→20:47)
[2017-06-21 08:00] VITALS: BP 117/64
[2017-06-21] MEDS: Vancomycin 1 GM in D5W 275 ML IVPB SCH ×2 (08:10→20:48)
[2017-06-21] MEDS: Phospha 250 Neutral tab GT SCH ×3 (08:16→17:26)
[2017-06-21] MEDS: Donepezil 10mg tab GT SCH (08:16)
[2017-06-21] MEDS: Heparin 5000 units/ml inj SUBQ SCH ×2 (08:22→20:48)
[2017-06-21 08:52] LABS: BASOPHILS % (AUTO) 0.5 % (0.0-2.0); EOSINOPHILS % (AUTO) 0.6 % (0.0-3.0); HEMOGLOBIN 13.4 G/DL (14.2-18.0); LYMPHOCYTES % (AUTO) 13.3 % (20.0-45.0); MEAN CORPUSCULAR VOLUME 93 FL (80-99); MONOCYTES % (AUTO) 4.8 % (1.0-10.0); NEUTROPHILS % (AUTO) 80.9 % (45.0-75.0); PLATELET COUNT 126 K/UL (150-450); RED BLOOD COUNT 4.21 M/UL (4.70-6.10); RED CELL DISTRIBUTION WIDTH 13.5 % (11.6-14.8)
[2017-06-21 09:02] LABS: ALBUMIN 2.2 G/DL (3.4-5.0); ANION GAP 10 mmol/L (5-15); BLOOD UREA NITROGEN 25 mg/dL (7-18); CALCIUM 7.8 MG/DL (8.5-10.1); CARBON DIOXIDE 24 MMOL/L (21-32); CHLORIDE 126 MMOL/L (98-107); PHOSPHORUS 2.3 MG/DL (2.5-4.9); POTASSIUM 3.1 MMOL/L (3.5-5.1); SODIUM 160 MMOL/L (136-145)
[2017-06-21 09:23] LABS: ANION GAP 10 mmol/L (5-15); BLOOD UREA NITROGEN 26 mg/dL (7-18); CALCIUM 7.7 MG/DL (8.5-10.1); CARBON DIOXIDE 23 MMOL/L (21-32); CHLORIDE 127 MMOL/L (98-107); CREATININE 0.9 MG/DL (0.55-1.30); POTASSIUM 3.2 MMOL/L (3.5-5.1); SODIUM 159 MMOL/L (136-145)
--- NOTE | 2017-06-21 09:59 | General Progress Note ---
Assessment/Plan Problem List: (1) UTI (urinary tract infection) ICD Codes: N39.0 - Urinary tract infection, site not specified SNOMED: 59651385 (2) Elevated troponin ICD Codes: R74.8 - Abnormal levels of other serum enzymes SNOMED: 554683539, 019377518, 787627564 (3) Pneumonia ICD Codes: J18.9 - Pneumonia, unspecified organism SNOMED: 117273815 Qualifiers: Qualified Codes: J18.9 - Pneumonia, unspecified organism (4) Fever ICD Codes: R50.9 - Fever, unspecified SNOMED: 530797378 (5) Sepsis ICD Codes: A41.9 - Sepsis, unspecified organism SNOMED: 67185959 Qualifiers: Qualified Codes: A41.9 - Sepsis, unspecified organism (6) Diabetes ICD Codes: E11.9 - Type 2 diabetes mellitus without complications SNOMED: 03101992 (7) Renal insufficiency ICD Codes: N28.9 - Disorder of kidney and ureter, unspecified SNOMED: 753082436 Status: unchanged Assessment/Plan o2 pulm tx abx cbc bmp am Subjective Constitutional: Reports: weakness Respiratory: Reports: shortness of breath Allergies: Coded Allergies: No Known Allergies (Unverified , 04/14/16) All Systems: reviewed and negative except above Subjective sleepy calm in bed Objective Last 24 Hour Vital Signs Date Time Temp Pulse Resp B/P (MAP) Pulse Ox O2 Delivery O2 Flow Rate FiO2 06/21/17 08:00 98.1 98 20 117/64 95 Nasal Cannula 2.0 98.1 06/21/17 07:37 94 20 Nasal Cannula 2.0 28 06/21/17 04:00 98.4 87 20 122/68 94 Nasal Cannula 2.0 98.4 06/21/17 04:00 93 06/21/17 00:00 100.0 95 20 118/69 96 Nasal Cannula 2.0 100.0 06/20/17 20:00 98.4 102 20 126/70 97 Nasal Cannula 2.0 98.4 06/20/17 20:00 100 06/20/17 17:14 98.4 90 14 111/84 100 Nasal Cannula 4.0 06/20/17 16:50 98.4 99 16 111/84 97 Nasal Cannula 2.0 98.4 4/6/18 16:34 99.1 101 20 125/69 Nasal Cannula 4.0 99.1 06/20/17 14:46 98.5 95 24 116/75 99 Nasal Cannula 4.0 98.5 06/20/17 12:09 98.8 102 18 117/68 94 Nasal Cannula 6.0 98.8 06/20/17 10:20 101.2 114 17 120/84 94 Nasal Cannula 6.0 101.2 06/20/17 10:08 101.0 Intake and Output 06/20/17 06/21/17 19:00 07:00 Intake Total 240 ml Output Total 100 ml 400 ml Balance 140 ml -400 ml Intake Oral 240 ml Output Urine Total 100 ml 400 ml # Voids 3 Laboratory Tests 06/20/17 10:35: Urine Color Yellow, Urine Appearance Clear, Urine pH 5, Urine Specific [place] 1.020, Urine Protein 3+H, Urine Glucose (UA) 4+H, Urine Ketones 2+H, Urine Occult Blood 5+H, Urine Nitrite Negative, Urine Bilirubin Negative, Urine Urobilinogen 1H, Urine Leukocyte Esterase 1+H, Urine RBC 15-20H, Urine WBC 2-4, Urine Squamous Epithelial Cells Occasional, Urine Bacteria Occasional 06/20/17 12:15: Lactic Acid Level 1.90 06/21/17 04:25: Urine Eosinophils None seen, Urine Random Creatinine [Pending], Urine Random Microalbumin [Pending], Urine Random Total Protein 143H, Urine Random Sodium 71 , Urine Creatinine 159.6H, Urine Microalbumin/Creatinine Ratio [Pending] 06/21/17 07:50: White Blood Count 16.0H, Red Blood Count 4.21L, Hemoglobin 13.4L, Hematocrit 39.0L, Mean Corpuscular Volume 93, Mean Corpuscular Hemoglobin 31.9H, Mean Corpuscular Hemoglobin Concent 34.5, Red Cell Distribution Width 13.5, Platelet Count 126L, Mean Platelet Volume 12.9H, Neutrophils (%) (Auto) 80.9H, Lymphocytes (%) (Auto) 13.3L, Monocytes (%) (Auto) 4.8, Eosinophils (%) (Auto) 0.6, Basophils (%) (Auto) 0.5, Sodium Level 160H, Potassium Level 3.1L, Chloride Level 126H, Carbon Dioxide Level 24, Anion Gap 10, Blood Urea Nitrogen 25H, Creatinine 1.0, Estimat Glomerular Filtration Rate > 60, Glucose Level 288H , Calcium Level 7.8L, Phosphorus Level 2.3L, Albumin 2.2L Height (Feet): 5 Height (Inches): 8.00 Weight (Pounds): 140 General Appearance: lethargic EENT: normal ENT inspection Neck: normal alignment Cardiovascular: normal peripheral pulses, normal rate, regular rhythm Respiratory/Chest: chest wall non-tender, lungs clear, decreased breath sounds Abdomen: normal bowel sounds, non tender, soft Extremities: normal inspection Edema: no edema noted Arm (L), no edema noted Arm (R), no edema noted Leg (L), no edema noted Leg (R), no edema noted Pedal (L), no edema noted Pedal (R), no edema noted Generalized Neurologic: motor weakness Skin: normal pigmentation, warm/dry SARAH THOMAS Jun 21, 2017 09:59
[2017-06-21 12:00] VITALS: BP 120/74
--- NOTE | 2017-06-21 15:14 | Pulmonology Progress Note ---
Assessment/Plan Problems: (1) Pneumonia (2) Aspiration pneumonia (3) Sepsis (4) G-tube site cellulitis (5) History of CVA (cerebrovascular accident) (6) Diabetes Assessment/Plan more stable improving scott culture IV fluids IV abx titrate fio2 to sat of 92% respiratory treatment check electrolytes dvt prophylaxis aspiration precaution Subjective ROS Limited/Unobtainable: No Interval Events: looks comfortable Allergies: Coded Allergies: No Known Allergies (Unverified , 04/14/16) Objective Last 24 Hour Vital Signs Date Time Temp Pulse Resp B/P (MAP) Pulse Ox O2 Delivery O2 Flow Rate FiO2 06/21/17 12:00 97.5 96 20 120/74 96 Nasal Cannula 2.0 97.5 06/21/17 12:00 98 06/21/17 08:00 98 06/21/17 08:00 98.1 98 20 117/64 95 Nasal Cannula 2.0 98.1 06/21/17 07:37 94 20 Nasal Cannula 2.0 28 06/21/17 04:00 98.4 87 20 122/68 94 Nasal Cannula 2.0 98.4 06/21/17 04:00 93 06/21/17 00:00 100.0 95 20 118/69 96 Nasal Cannula 2.0 100.0 06/20/17 20:00 98.4 102 20 126/70 97 Nasal Cannula 2.0 98.4 06/20/17 20:00 100 06/20/17 17:14 98.4 90 14 111/84 100 Nasal Cannula 4.0 06/20/17 16:50 98.4 99 16 111/84 97 Nasal Cannula 2.0 98.4 06/20/17 16:34 99.1 101 20 125/69 Nasal Cannula 4.0 99.1 Intake and Output 06/20/17 06/21/17 19:00 07:00 Intake Total 240 ml 50 ml Output Total 100 ml 400 ml Balance 140 ml -350 ml Intake Oral 240 ml IV Total 50 ml Output Urine Total 100 ml 400 ml # Voids 3 General Appearance: WD/WN HEENT: normocephalic Respiratory/Chest: chest wall non-tender, lungs clear Cardiovascular: normal peripheral pulses, regular rhythm Abdomen: normal bowel sounds, soft, non tender Genitourinary: normal external genitalia Neurologic/Psychiatric: plush dresser II-XII grossly normal Microbiology Date/Time Source Procedure Growth Status 06/20/17 10:35 Nasal Nares Influenza Types A,B Antigen (NILS) - Final Complete Laboratory Tests 06/21/17 04:25: Urine Eosinophils None seen, Urine Random Creatinine [Pending], Urine Random Microalbumin [Pending], Urine Random Total Protein 143H, Urine Random Sodium 71 , Urine Creatinine 159.6H, Urine Microalbumin/Creatinine Ratio [Pending] 06/21/17 07:50: White Blood Count 16.0H, Red Blood Count 4.21L, Hemoglobin 13.4L, Hematocrit 39.0L, Mean Corpuscular Volume 93, Mean Corpuscular Hemoglobin 31.9H, Mean Corpuscular Hemoglobin Concent 34.5, Red Cell Distribution Width 13.5, Platelet Count 126L, Mean Platelet Volume 12.9H, Neutrophils (%) (Auto) 80.9H, Lymphocytes (%) (Auto) 13.3L, Monocytes (%) (Auto) 4.8, Eosinophils (%) (Auto) 0.6, Basophils (%) (Auto) 0.5, Sodium Level 160H, Potassium Level 3.1L, Chloride Level 126H, Carbon Dioxide Level 24, Anion Gap 10, Blood Urea Nitrogen 25H, Creatinine 1.0, Estimat Glomerular Filtration Rate > 60, Glucose Level 288H , Calcium Level 7.8L, Phosphorus Level 2.3L, Albumin 2.2L Current Medications Medications (Trade) Dose Ordered Sig/Xochilt Route PRN Reason Start Time Stop Time Status Last Admin Dose Admin Acetaminophen (Tylenol) 650 mg Q4H PRN ORAL FEVER (T>100.5F) 06/20/17 12:45 07/20/17 12:44 Albuterol/ Ipratropium (Albuterol/ Ipratropium) 3 ml Q4H PRN HHN Shortness of Breath 06/20/17 12:45 06/25/17 12:44 Cefepime HCl 2 gm/ Dextrose 110 ml @ 220 mls/hr Q12H IV 06/20/17 18:00 06/27/17 17:59 06/21/17 07:04 Dextrose (Dextrose 50%) 25 ml STAT PRN IV Hypoglycemia 06/20/17 12:45 07/20/17 12:44 Dextrose (Dextrose 50%) 50 ml STAT PRN IV Hypoglycemia 06/20/17 12:45 07/20/17 12:44 Donepezil HCl (Aricept) 10 mg DAILY GT 06/21/17 09:00 07/21/17 08:59 06/21/17 08:16 Heparin Sodium (Porcine) (Heparin 5000 units/ml) 5,000 units EVERY 12 HOURS SUBQ 06/20/17 21:00 07/20/17 20:59 06/21/17 08:22 Insulin Aspart (NovoLOG) BEFORE MEALS AND HS SUBQ 06/20/17 17:00 07/20/17 16:59 06/21/17 12:33 Lorazepam (Ativan 2mg/ml 1ml) 2 mg Q2H PRN IV For Anxiety 06/20/17 12:45 06/27/17 12:44 Morphine Sulfate (Morphine Sulfate) 4 mg Q4H PRN IVP Severe Pain (Pain Scale 7-10) 06/20/17 12:45 06/27/17 12:44 Ondansetron HCl (Zofran) 4 mg Q6H PRN IVP Nausea & Vomiting 06/20/17 12:45 07/20/17 12:44 Phosphorus (Phospha 250 Neutral) 500 mg TID GT 06/20/17 18:00 07/20/17 17:59 06/21/17 12:33 Polyethylene Glycol (Miralax) 17 gm DAILYPRN PRN ORAL Constipation 06/20/17 12:45 07/20/17 12:44 Promethazine HCl/ Codeine (Phenergan with Codeine) 5 ml Q4H PRN ORAL For Cough 06/20/17 12:45 07/20/17 12:44 Sodium Chloride 1,000 ml @ 50 mls/hr Q20H IV 06/20/17 14:00 07/20/17 13:59 06/21/17 10:28 Vancomycin HCl (Vanco rx to dose) 1 ea DAILY PRN MISC Per rx protocol 06/20/17 16:30 07/20/17 16:29 Vancomycin HCl 1 gm/Dextrose 275 ml @ 183.3 mls/ hr Q12H IVPB 06/20/17 20:00 06/25/17 19:59 06/21/17 08:10 Lindsay Salter MD Jun 21, 2017 15:14
--- NOTE | 2017-06-21 15:31 | Nephrology Progress Note ---
Assessment/Plan Assessment 1. Hypernatremia. 2. Hypokalemia. 3. Hypocalcemia. 4. Hyperglycemia. 5. Acute versus chronic renal failure. 6. Febrile illness, most likely urinary tract infection. Plan start free water per g tube replace k bladder scan check vit d iv anabiotic Subjective ROS Limited/Unobtainable: Yes Constitutional: Reports: no symptoms HEENT: Reports: no symptoms Genitourinary: Reports: no symptoms Neurologic/Psychiatric: Reports: no symptoms Subjective continue to be altered Objective Objective Last 24 Hour Vital Signs Date Time Temp Pulse Resp B/P (MAP) Pulse Ox O2 Delivery O2 Flow Rate FiO2 06/21/17 12:00 97.5 96 20 120/74 96 Nasal Cannula 2.0 97.5 06/21/17 12:00 98 06/21/17 08:00 98 06/21/17 08:00 98.1 98 20 117/64 95 Nasal Cannula 2.0 98.1 06/21/17 07:37 94 20 Nasal Cannula 2.0 28 06/21/17 04:00 98.4 87 20 122/68 94 Nasal Cannula 2.0 98.4 06/21/17 04:00 93 06/21/17 00:00 100.0 95 20 118/69 96 Nasal Cannula 2.0 100.0 06/20/17 20:00 98.4 102 20 126/70 97 Nasal Cannula 2.0 98.4 06/20/17 20:00 100 06/20/17 17:14 98.4 90 14 111/84 100 Nasal Cannula 4.0 06/20/17 16:50 98.4 99 16 111/84 97 Nasal Cannula 2.0 98.4 06/20/17 16:34 99.1 101 20 125/69 Nasal Cannula 4.0 99.1 Intake and Output 06/20/17 06/21/17 19:00 07:00 Intake Total 240 ml 50 ml Output Total 100 ml 400 ml Balance 140 ml -350 ml Intake Oral 240 ml IV Total 50 ml Output Urine Total 100 ml 400 ml # Voids 3 Laboratory Tests 06/21/17 04:25: Urine Eosinophils None seen, Urine Random Creatinine [Pending], Urine Random Microalbumin [Pending], Urine Random Total Protein 143H, Urine Random Sodium 71 , Urine Creatinine 159.6H, Urine Microalbumin/Creatinine Ratio [Pending] 06/21/17 07:50: White Blood Count 16.0H, Red Blood Count 4.21L, Hemoglobin 13.4L, Hematocrit 39.0L, Mean Corpuscular Volume 93, Mean Corpuscular Hemoglobin 31.9H, Mean Corpuscular Hemoglobin Concent 34.5, Red Cell Distribution Width 13.5, Platelet Count 126L, Mean Platelet Volume 12.9H, Neutrophils (%) (Auto) 80.9H, Lymphocytes (%) (Auto) 13.3L, Monocytes (%) (Auto) 4.8, Eosinophils (%) (Auto) 0.6, Basophils (%) (Auto) 0.5, Sodium Level 160H, Potassium Level 3.1L, Chloride Level 126H, Carbon Dioxide Level 24, Anion Gap 10, Blood Urea Nitrogen 25H, Creatinine 1.0, Estimat Glomerular Filtration Rate > 60, Glucose Level 288H , Calcium Level 7.8L, Phosphorus Level 2.3L, Albumin 2.2L Height (Feet): 5 Height (Inches): 8.00 Weight (Pounds): 140 Objective GENERAL: Chronically ill-looking male, in no acute distress. HEAD AND NECK: No JVP. No LAD. Head is atraumatic and normocephalic. Extraocular movement intact. Pupils are reactive to light and accommodation. LUNGS: He has bilateral rhonchi on both sides. CARDIAC: Tachy. S1 and S2. No murmur. No rub. ABDOMEN: Soft. G-tube is in place. Nontender and nondistended. EXTREMITIES: No edema. No clubbing. No cyanosis. TONY CHOPRA Jun 21, 2017 15:30
[2017-06-21 16:00] VITALS: BP 131/75
[2017-06-21 20:00] VITALS: BP 118/69
--- NOTE | 2017-06-21 22:02 | Cardiology Progress Note ---
Assessment/Plan Assessment/Plan 1. Sinus tachycardia, likely due to hypovolemia with evidence of free water deficit. There is no need for AV lico agents at this point. 2. History of cerebrovascular accident with aphasia, recommend aspirin and statin. 3. History of diabetes mellitus. 4. History of hypertension. Subjective Subjective Sinus tachycardia at 114. Objective Last 24 Hour Vital Signs Date Time Temp Pulse Resp B/P (MAP) Pulse Ox O2 Delivery O2 Flow Rate FiO2 06/21/17 20:00 101 06/21/17 20:00 99.3 101 20 118/69 92 99.3 06/21/17 16:00 98.6 114 20 131/75 95 Nasal Cannula 2.0 98.6 06/21/17 16:00 113 06/21/17 12:00 97.5 96 20 120/74 96 Nasal Cannula 2.0 97.5 06/21/17 12:00 98 06/21/17 08:00 98 06/21/17 08:00 98.1 98 20 117/64 95 Nasal Cannula 2.0 98.1 06/21/17 07:37 94 20 Nasal Cannula 2.0 28 06/21/17 04:00 98.4 87 20 122/68 94 Nasal Cannula 2.0 98.4 06/21/17 04:00 93 06/21/17 00:00 100.0 95 20 118/69 96 Nasal Cannula 2.0 100.0 Intake and Output 06/20/17 06/21/17 19:00 07:00 Intake Total 240 ml 50 ml Output Total 100 ml 400 ml Balance 140 ml -350 ml Intake Oral 240 ml IV Total 50 ml Output Urine Total 100 ml 400 ml # Voids 3 Laboratory Tests Test 06/21/17 04:25 06/21/17 07:50 Urine Eosinophils None seen Urine Random Creatinine Pending Urine Random Microalbumin Pending Urine Random Total Protein 143 MG/DL (< 11.9) H Urine Random Sodium 71 mmol/L (20-110) Urine Creatinine 159.6 MG/DL (30.0-125.0) H Urine Microalbumin/Creatinine Ratio Pending White Blood Count 16.0 K/UL (4.8-10.8) H Red Blood Count 4.21 M/UL (4.70-6.10) L Hemoglobin 13.4 G/DL (14.2-18.0) L Hematocrit 39.0 % (42.0-52.0) L Mean Corpuscular Volume 93 FL (80-99) Mean Corpuscular Hemoglobin 31.9 PG (27.0-31.0) H Mean Corpuscular Hemoglobin Concent 34.5 G/DL (32.0-36.0) Red Cell Distribution Width 13.5 % (11.6-14.8) Platelet Count 126 K/UL (150-450) L Mean Platelet Volume 12.9 FL (6.5-10.1) H Neutrophils (%) (Auto) 80.9 % (45.0-75.0) H Lymphocytes (%) (Auto) 13.3 % (20.0-45.0) L Monocytes (%) (Auto) 4.8 % (1.0-10.0) Eosinophils (%) (Auto) 0.6 % (0.0-3.0) Basophils (%) (Auto) 0.5 % (0.0-2.0) Sodium Level 160 MMOL/L (136-145) H Potassium Level 3.1 MMOL/L (3.5-5.1) L Chloride Level 126 MMOL/L (98-107) H Carbon Dioxide Level 24 MMOL/L (21-32) Anion Gap 10 mmol/L (5-15) Blood Urea Nitrogen 25 mg/dL (7-18) H Creatinine 1.0 MG/DL (0.55-1.30) Estimat Glomerular Filtration Rate > 60 mL/min (>60) Glucose Level 288 MG/DL (74-106) H Calcium Level 7.8 MG/DL (8.5-10.1) L Phosphorus Level 2.3 MG/DL (2.5-4.9) L Magnesium Level 2.4 MG/DL (1.8-2.4) Albumin 2.2 G/DL (3.4-5.0) L Vitamin D 25-Hydroxy Pending 25-Hydroxy Vitamin D2 Pending 25-Hydroxy Vitamin D3 Pending Microbiology Date/Time Source Procedure Growth Status 06/20/17 10:35 Nasal Nares Influenza Types A,B Antigen (NILS) - Final Complete Objective HEENT: Atraumatic and normocephalic. ENT, pupils are equal, round, and reactive to light and accommodation. Extraocular muscles are intact. NECK: JVP less than 5 cm. No carotid bruits. Carotid upstrokes 2+ bilaterally. CARDIOVASCULAR: Normal S1 and S2. Regular rate and rhythm. Tachycardic. No murmurs, gallops, or rubs. LUNGS: Clear to auscultation bilaterally. ABDOMEN: Soft, nontender, and nondistended. No hepatosplenomegaly. Positive bowel sounds. Positive G-tube in place. No evidence of edema, clubbing, or cyanosis. RENEE WASHINGTON Jun 21, 2017 22:02
[2017-06-22] VITALS: BP 105/72
[2017-06-22 04:00] VITALS: BP 127/75
[2017-06-22] MEDS: NovoLOG Insulin Flexpen SUBQ SCH ×3 (06:24→17:22)
[2017-06-22] MEDS: Cefepime HCl 2 GM in D5W 110 ML IV SCH ×2 (06:24→17:24)
[2017-06-22 07:11] LABS: BASOPHILS % (AUTO) 0.6 % (0.0-2.0); EOSINOPHILS % (AUTO) 1.4 % (0.0-3.0); HEMATOCRIT 35.7 % (42.0-52.0); HEMOGLOBIN 12.1 G/DL (14.2-18.0); LYMPHOCYTES % (AUTO) 22.7 % (20.0-45.0); MEAN CORPUSCULAR VOLUME 93 FL (80-99); NEUTROPHILS % (AUTO) 70.3 % (45.0-75.0); PLATELET COUNT 120 K/UL (150-450); RED BLOOD COUNT 3.84 M/UL (4.70-6.10); RED CELL DISTRIBUTION WIDTH 12.8 % (11.6-14.8)
[2017-06-22 07:30] LABS: ANION GAP 11 mmol/L (5-15); BLOOD UREA NITROGEN 19 mg/dL (7-18); CALCIUM 7.9 MG/DL (8.5-10.1); CARBON DIOXIDE 25 MMOL/L (21-32); CHLORIDE 117 MMOL/L (98-107); CHOLESTEROL 142 MG/DL (< 200); HDL CHOLESTEROL 16 MG/DL (40-60); POTASSIUM 3.2 MMOL/L (3.5-5.1); SODIUM 153 MMOL/L (136-145); TRIGLYCERIDES 255 MG/DL (30-150)
[2017-06-22 08:00] VITALS: BP 125/78
--- NOTE | 2017-06-22 08:52 | General Progress Note ---
Assessment/Plan Problem List: (1) UTI (urinary tract infection) ICD Codes: N39.0 - Urinary tract infection, site not specified SNOMED: 91718103 (2) Elevated troponin ICD Codes: R74.8 - Abnormal levels of other serum enzymes SNOMED: 870235461, 771611324, 899412274 (3) Pneumonia ICD Codes: J18.9 - Pneumonia, unspecified organism SNOMED: 326141662 Qualifiers: Qualified Codes: J18.9 - Pneumonia, unspecified organism (4) Fever ICD Codes: R50.9 - Fever, unspecified SNOMED: 562860036 (5) Sepsis ICD Codes: A41.9 - Sepsis, unspecified organism SNOMED: 36003133 Qualifiers: Qualified Codes: A41.9 - Sepsis, unspecified organism (6) Diabetes ICD Codes: E11.9 - Type 2 diabetes mellitus without complications SNOMED: 81379493 (7) Renal insufficiency ICD Codes: N28.9 - Disorder of kidney and ureter, unspecified SNOMED: 053401667 Status: unchanged Assessment/Plan o2 pulm tx abx cbc bmp am Subjective Constitutional: Reports: weakness Allergies: Coded Allergies: No Known Allergies (Unverified , 04/14/16) All Systems: reviewed and negative except above Subjective o2 nc sleepy calm in bed Objective Last 24 Hour Vital Signs Date Time Temp Pulse Resp B/P (MAP) Pulse Ox O2 Delivery O2 Flow Rate FiO2 06/22/17 08:22 90 20 Nasal Cannula 2.0 28 06/22/17 04:00 98.2 97 22 127/75 93 Nasal Cannula 2.0 98.2 06/22/17 04:00 94 06/22/17 00:00 97.0 95 20 105/72 93 Nasal Cannula 2.0 97.0 06/22/17 00:00 94 06/21/17 20:00 101 06/21/17 20:00 99.3 101 20 118/69 92 99.3 06/21/17 19:11 95 20 Nasal Cannula 2.0 28 06/21/17 16:00 98.6 114 20 131/75 95 Nasal Cannula 2.0 98.6 06/21/17 16:00 113 06/21/17 12:00 97.5 96 20 120/74 96 Nasal Cannula 2.0 97.5 06/21/17 12:00 98 Intake and Output 4/7/18 4/8/18 19:00 07:00 Intake Total 1134 ml 1586.6 ml Balance 1134 ml 1586.6 ml Intake Oral 60 ml IV Total 864 ml 816.6 ml Tube Feeding 210 ml 770 ml # Voids 3 2 Laboratory Tests 06/22/17 07:00: White Blood Count 11.0H, Red Blood Count 3.84L, Hemoglobin 12.1L, Hematocrit 35.7L, Mean Corpuscular Volume 93, Mean Corpuscular Hemoglobin 31.6H, Mean Corpuscular Hemoglobin Concent 34.0, Red Cell Distribution Width 12.8, Platelet Count 120L, Mean Platelet Volume 12.2H, Neutrophils (%) (Auto) 70.3, Lymphocytes (%) (Auto) 22.7, Monocytes (%) (Auto) 5.0, Eosinophils (%) (Auto) 1.4, Basophils (%) (Auto) 0.6, Sodium Level 153H, Potassium Level 3.2L, Chloride Level 117H, Carbon Dioxide Level 25, Anion Gap 11, Blood Urea Nitrogen 19H, Creatinine 1.0, Estimat Glomerular Filtration Rate > 60, Glucose Level 311H , Calcium Level 7.9L, Triglycerides Level 255H, Cholesterol Level 142, LDL Cholesterol 89, HDL Cholesterol 16L, Cholesterol/HDL Ratio 8.9H, Vancomycin Level Trough 8.7 Height (Feet): 5 Height (Inches): 8.00 Weight (Pounds): 140 General Appearance: lethargic EENT: normal ENT inspection Neck: normal alignment Cardiovascular: normal peripheral pulses, normal rate, regular rhythm Respiratory/Chest: chest wall non-tender, lungs clear, decreased breath sounds Abdomen: normal bowel sounds, non tender, soft Extremities: normal inspection Edema: no edema noted Arm (L), no edema noted Arm (R), no edema noted Leg (L), no edema noted Leg (R), no edema noted Pedal (L), no edema noted Pedal (R), no edema noted Generalized Neurologic: motor weakness Skin: normal pigmentation, warm/dry SARAH THOMAS Jun 22, 2017 08:52
[2017-06-22] MEDS ORDERED: Aspirin EC 81mg tab ORAL SCH (09:00)
[2017-06-22] MEDS: Memantine 10mg tab GT SCH ×2 (09:16→17:20)
[2017-06-22] MEDS: Phospha 250 Neutral tab GT SCH ×3 (09:17→17:20)
[2017-06-22] MEDS: Donepezil 10mg tab GT SCH (09:17)
[2017-06-22] MEDS: Vancomycin 1 GM in D5W 275 ML IVPB SCH (09:18)
[2017-06-22] MEDS: Heparin 5000 units/ml inj SUBQ SCH ×2 (09:20→21:00)
--- NOTE | 2017-06-22 11:22 | Pulmonology Progress Note ---
Assessment/Plan Problems: (1) Pneumonia (2) Aspiration pneumonia (3) Sepsis (4) G-tube site cellulitis (5) History of CVA (cerebrovascular accident) (6) Diabetes Assessment/Plan looks better improving scott culture IV fluids IV abx titrate fio2 to sat of 92% respiratory treatment check electrolytes dvt prophylaxis aspiration precaution Subjective ROS Limited/Unobtainable: No Constitutional: Reports: no symptoms HEENT: Repors: no symptoms Respiratory: Reports: no symptoms Cardiovascular: Reports: no symptoms Gastrointestinal/Abdominal: Reports: no symptoms Allergies: Coded Allergies: No Known Allergies (Unverified , 04/14/16) Objective Last 24 Hour Vital Signs Date Time Temp Pulse Resp B/P (MAP) Pulse Ox O2 Delivery O2 Flow Rate FiO2 06/22/17 08:22 90 20 Nasal Cannula 2.0 28 06/22/17 08:00 98.2 91 20 125/78 93 Nasal Cannula 2.0 98.2 06/22/17 08:00 101 06/22/17 04:00 98.2 97 22 127/75 93 Nasal Cannula 2.0 98.2 06/22/17 04:00 94 06/22/17 00:00 97.0 95 20 105/72 93 Nasal Cannula 2.0 97.0 06/22/17 00:00 94 06/21/17 20:00 101 06/21/17 20:00 99.3 101 20 118/69 92 99.3 06/21/17 19:11 95 20 Nasal Cannula 2.0 28 06/21/17 16:00 98.6 114 20 131/75 95 Nasal Cannula 2.0 98.6 06/21/17 16:00 113 06/21/17 12:00 97.5 96 20 120/74 96 Nasal Cannula 2.0 97.5 06/21/17 12:00 98 Intake and Output 06/21/17 06/22/17 19:00 07:00 Intake Total 1134 ml 1586.6 ml Balance 1134 ml 1586.6 ml Intake Oral 60 ml IV Total 864 ml 816.6 ml Tube Feeding 210 ml 770 ml # Voids 3 2 General Appearance: WD/WN HEENT: normocephalic, atraumatic Respiratory/Chest: chest wall non-tender, lungs clear Cardiovascular: normal peripheral pulses, normal rate, regular rhythm Abdomen: normal bowel sounds, soft, non tender Extremities: no cyanosis Skin: no lesions Neurologic/Psychiatric: medical art therapist II-XII grossly normal Microbiology Date/Time Source Procedure Growth Status 06/20/17 10:35 Blood Blood Culture - Preliminary NO GROWTH AFTER 24 HOURS Resulted 06/20/17 10:30 Blood Blood Culture - Preliminary NO GROWTH AFTER 24 HOURS Resulted 06/20/17 11:40 Nasal Nares MRSA Culture - Final NO METHICILLIN RESISTANT STAPH AUREUS... Complete 06/20/17 10:35 Nasal Nares Influenza Types A,B Antigen (NILS) - Final Complete Laboratory Tests 06/22/17 07:00: White Blood Count 11.0H, Red Blood Count 3.84L, Hemoglobin 12.1L, Hematocrit 35.7L, Mean Corpuscular Volume 93, Mean Corpuscular Hemoglobin 31.6H, Mean Corpuscular Hemoglobin Concent 34.0, Red Cell Distribution Width 12.8, Platelet Count 120L, Mean Platelet Volume 12.2H, Neutrophils (%) (Auto) 70.3, Lymphocytes (%) (Auto) 22.7, Monocytes (%) (Auto) 5.0, Eosinophils (%) (Auto) 1.4, Basophils (%) (Auto) 0.6, Sodium Level 153H, Potassium Level 3.2L, Chloride Level 117H, Carbon Dioxide Level 25, Anion Gap 11, Blood Urea Nitrogen 19H, Creatinine 1.0, Estimat Glomerular Filtration Rate > 60, Glucose Level 311H , Calcium Level 7.9L, Triglycerides Level 255H, Cholesterol Level 142, LDL Cholesterol 89, HDL Cholesterol 16L, Cholesterol/HDL Ratio 8.9H, Vancomycin Level Trough 8.7 Current Medications Medications (Trade) Dose Ordered Sig/Xochilt Route PRN Reason Start Time Stop Time Status Last Admin Dose Admin Acetaminophen (Tylenol) 650 mg Q4H PRN ORAL FEVER (T>100.5F) 06/20/17 12:45 07/20/17 12:44 Albuterol/ Ipratropium (Albuterol/ Ipratropium) 3 ml Q4H PRN HHN Shortness of Breath 06/20/17 12:45 06/25/17 12:44 Aspirin (Ecotrin) 81 mg DAILY ORAL 06/22/17 09:00 07/22/17 08:59 06/22/17 09:17 Atorvastatin Calcium (Lipitor) 10 mg BEDTIME ORAL 06/22/17 21:00 07/22/17 20:59 Cefepime HCl 2 gm/ Dextrose 110 ml @ 220 mls/hr Q12H IV 06/20/17 18:00 06/27/17 17:59 06/22/17 06:24 Dextrose 1,000 ml @ 50 mls/hr Q20H IV 06/21/17 17:00 07/21/17 16:59 06/21/17 17:27 Dextrose (Dextrose 50%) 25 ml STAT PRN IV Hypoglycemia 06/20/17 12:45 07/20/17 12:44 Dextrose (Dextrose 50%) 50 ml STAT PRN IV Hypoglycemia 06/20/17 12:45 07/20/17 12:44 Donepezil HCl (Aricept) 10 mg DAILY GT 06/21/17 09:00 07/21/17 08:59 06/22/17 09:17 Heparin Sodium (Porcine) (Heparin 5000 units/ml) 5,000 units EVERY 12 HOURS SUBQ 06/20/17 21:00 07/20/17 20:59 06/22/17 09:20 Insulin Aspart (NovoLOG) BEFORE MEALS AND HS SUBQ 06/20/17 17:00 07/20/17 16:59 06/22/17 06:24 Lorazepam (Ativan 2mg/ml 1ml) 2 mg Q2H PRN IV For Anxiety 06/20/17 12:45 06/27/17 12:44 Memantine (Namenda) 5 mg BID GT 06/22/17 09:00 07/22/17 08:59 06/22/17 09:16 Morphine Sulfate (Morphine Sulfate) 4 mg Q4H PRN IVP Severe Pain (Pain Scale 7-10) 06/20/17 12:45 06/27/17 12:44 Ondansetron HCl (Zofran) 4 mg Q6H PRN IVP Nausea & Vomiting 06/20/17 12:45 07/20/17 12:44 Phosphorus (Phospha 250 Neutral) 500 mg TID GT 06/20/17 18:00 07/20/17 17:59 06/22/17 09:17 Polyethylene Glycol (Miralax) 17 gm DAILYPRN PRN ORAL Constipation 06/20/17 12:45 07/20/17 12:44 Potassium Chloride (K-Dur) 40 meq ONCE ONCE ORAL 06/22/17 11:15 06/22/17 11:16 UNV Promethazine HCl/ Codeine (Phenergan with Codeine) 5 ml Q4H PRN ORAL For Cough 06/20/17 12:45 07/20/17 12:44 Vancomycin HCl (Vanco rx to dose) 1 ea DAILY PRN MISC Per rx protocol 06/20/17 16:30 07/20/17 16:29 Vancomycin HCl/ Dextrose 250 ml @ 166.667 mls/hr Q12H IVPB 06/22/17 18:00 06/27/17 17:59 Lindsay Salter MD Jun 22, 2017 11:22
[2017-06-22 12:00] VITALS: BP_SYST 101; BP_SYST 134; BP_DIAS 75; BP_DIAS 81
--- NOTE | 2017-06-22 13:10 | Infectious Diseases Prog Note ---
Assessment/Plan Assessment/Plan ASSESSMENT: The patient is a 67-year-old male with, Fever, SP Leukocytosis, improving Sepsis HCAPn (negative chest x-ray does not rule out, pt has cough and has congested chest) Influenza screening: negative Bilateral groin candidiasis Rule out bacteremia Influenza test negative for influenza A and B. CVA. Diabetes. Hypertension. Status post PEG/dysphagia PLAN: continue the patient on vancomycin and cefepime day # 3 Apply clotrimazole b.i.d. to the groin. Monitor CBC Monitor BMP. Monitor cultures (blood, sputum). Monitor chest x-ray. Subjective Allergies: Coded Allergies: No Known Allergies (Unverified , 04/14/16) Subjective Afebrile Objective Vital Signs Last 24 Hour Vital Signs Date Time Temp Pulse Resp B/P (MAP) Pulse Ox O2 Delivery O2 Flow Rate FiO2 06/22/17 08:22 90 20 Nasal Cannula 2.0 28 06/22/17 08:00 98.2 91 20 125/78 93 Nasal Cannula 2.0 98.2 06/22/17 08:00 101 06/22/17 04:00 98.2 97 22 127/75 93 Nasal Cannula 2.0 98.2 06/22/17 04:00 94 06/22/17 00:00 97.0 95 20 105/72 93 Nasal Cannula 2.0 97.0 06/22/17 00:00 94 06/21/17 20:00 101 06/21/17 20:00 99.3 101 20 118/69 92 99.3 06/21/17 19:11 95 20 Nasal Cannula 2.0 28 06/21/17 16:00 98.6 114 20 131/75 95 Nasal Cannula 2.0 98.6 06/21/17 16:00 113 Height (Feet): 5 Height (Inches): 8.00 Weight (Pounds): 140 HEENT: anicteric Respiratory/Chest: no respiratory distress Cardiovascular: regular rhythm Abdomen: soft, non tender Microbiology Date/Time Source Procedure Growth Status 06/20/17 10:35 Blood Blood Culture - Preliminary NO GROWTH AFTER 24 HOURS Resulted 06/20/17 10:30 Blood Blood Culture - Preliminary NO GROWTH AFTER 24 HOURS Resulted 06/20/17 11:40 Nasal Nares MRSA Culture - Final NO METHICILLIN RESISTANT STAPH AUREUS... Complete 06/20/17 10:35 Nasal Nares Influenza Types A,B Antigen (NILS) - Final Complete Laboratory Tests Test 06/22/17 07:00 White Blood Count 11.0 K/UL (4.8-10.8) H Red Blood Count 3.84 M/UL (4.70-6.10) L Hemoglobin 12.1 G/DL (14.2-18.0) L Hematocrit 35.7 % (42.0-52.0) L Mean Corpuscular Volume 93 FL (80-99) Mean Corpuscular Hemoglobin 31.6 PG (27.0-31.0) H Mean Corpuscular Hemoglobin Concent 34.0 G/DL (32.0-36.0) Red Cell Distribution Width 12.8 % (11.6-14.8) Platelet Count 120 K/UL (150-450) L Mean Platelet Volume 12.2 FL (6.5-10.1) H Neutrophils (%) (Auto) 70.3 % (45.0-75.0) Lymphocytes (%) (Auto) 22.7 % (20.0-45.0) Monocytes (%) (Auto) 5.0 % (1.0-10.0) Eosinophils (%) (Auto) 1.4 % (0.0-3.0) Basophils (%) (Auto) 0.6 % (0.0-2.0) Sodium Level 153 MMOL/L (136-145) H Potassium Level 3.2 MMOL/L (3.5-5.1) L Chloride Level 117 MMOL/L (98-107) H Carbon Dioxide Level 25 MMOL/L (21-32) Anion Gap 11 mmol/L (5-15) Blood Urea Nitrogen 19 mg/dL (7-18) H Creatinine 1.0 MG/DL (0.55-1.30) Estimat Glomerular Filtration Rate > 60 mL/min (>60) Glucose Level 311 MG/DL (74-106) H Calcium Level 7.9 MG/DL (8.5-10.1) L Triglycerides Level 255 MG/DL (30-150) H Cholesterol Level 142 MG/DL (< 200) LDL Cholesterol 89 mg/dL (<100) HDL Cholesterol 16 MG/DL (40-60) L Cholesterol/HDL Ratio 8.9 (3.3-4.4) H Vancomycin Level Trough 8.7 ug/mL (5.0-12.0) Current Medications Medications (Trade) Dose Ordered Sig/Xochilt Route PRN Reason Start Time Stop Time Status Last Admin Dose Admin Acetaminophen (Tylenol) 650 mg Q4H PRN ORAL FEVER (T>100.5F) 06/20/17 12:45 07/20/17 12:44 Albuterol/ Ipratropium (Albuterol/ Ipratropium) 3 ml Q4H PRN HHN Shortness of Breath 06/20/17 12:45 06/25/17 12:44 Aspirin (Ecotrin) 81 mg DAILY ORAL 06/22/17 09:00 07/22/17 08:59 06/22/17 09:17 Atorvastatin Calcium (Lipitor) 10 mg BEDTIME ORAL 06/22/17 21:00 07/22/17 20:59 Cefepime HCl 2 gm/ Dextrose 110 ml @ 220 mls/hr Q12H IV 06/20/17 18:00 06/27/17 17:59 06/22/17 06:24 Dextrose 1,000 ml @ 50 mls/hr Q20H IV 06/21/17 17:00 07/21/17 16:59 06/22/17 12:21 Dextrose (Dextrose 50%) 25 ml STAT PRN IV Hypoglycemia 06/20/17 12:45 07/20/17 12:44 Dextrose (Dextrose 50%) 50 ml STAT PRN IV Hypoglycemia 06/20/17 12:45 07/20/17 12:44 Donepezil HCl (Aricept) 10 mg DAILY GT 06/21/17 09:00 07/21/17 08:59 06/22/17 09:17 Heparin Sodium (Porcine) (Heparin 5000 units/ml) 5,000 units EVERY 12 HOURS SUBQ 06/20/17 21:00 07/20/17 20:59 06/22/17 09:20 Insulin Aspart (NovoLOG) BEFORE MEALS AND HS SUBQ 06/20/17 17:00 07/20/17 16:59 06/22/17 12:23 Lorazepam (Ativan 2mg/ml 1ml) 2 mg Q2H PRN IV For Anxiety 06/20/17 12:45 06/27/17 12:44 Memantine (Namenda) 5 mg BID GT 06/22/17 09:00 07/22/17 08:59 06/22/17 09:16 Morphine Sulfate (Morphine Sulfate) 4 mg Q4H PRN IVP Severe Pain (Pain Scale 7-10) 06/20/17 12:45 06/27/17 12:44 Ondansetron HCl (Zofran) 4 mg Q6H PRN IVP Nausea & Vomiting 06/20/17 12:45 07/20/17 12:44 Phosphorus (Phospha 250 Neutral) 500 mg TID GT 06/20/17 18:00 07/20/17 17:59 06/22/17 12:21 Polyethylene Glycol (Miralax) 17 gm DAILYPRN PRN ORAL Constipation 06/20/17 12:45 07/20/17 12:44 Potassium Chloride (K-Dur) 40 meq ONCE ORAL 06/22/17 11:30 07/22/17 12:30 06/22/17 12:21 Promethazine HCl/ Codeine (Phenergan with Codeine) 5 ml Q4H PRN ORAL For Cough 06/20/17 12:45 07/20/17 12:44 Vancomycin HCl (Vanco rx to dose) 1 ea DAILY PRN MISC Per rx protocol 06/20/17 16:30 07/20/17 16:29 Vancomycin HCl/ Dextrose 250 ml @ 166.667 mls/hr Q12H IVPB 06/22/17 18:00 06/27/17 17:59 Rocco Perez MD Jun 22, 2017 13:10
--- NOTE | 2017-06-22 15:57 | Nephrology Progress Note ---
Assessment/Plan Assessment 1. Hypernatremia improving 2. Hypokalemia. 3. Hypocalcemia. 4. Hyperglycemia. 5. Acute versus chronic renal failure. 6. Febrile illness, most likely urinary tract infection. Plan start feeding per g tube replace k continue IVF check vit d iv anabiotic Subjective Constitutional: Reports: no symptoms HEENT: Reports: no symptoms Genitourinary: Reports: no symptoms Neurologic/Psychiatric: Reports: no symptoms Subjective more responsive today no acute events over night Objective Objective Last 24 Hour Vital Signs Date Time Temp Pulse Resp B/P (MAP) Pulse Ox O2 Delivery O2 Flow Rate FiO2 06/22/17 12:00 98.9 91 20 134/81 95 Nasal Cannula 2.0 98.9 06/22/17 12:00 90 06/22/17 08:22 90 20 Nasal Cannula 2.0 28 06/22/17 08:00 98.2 91 20 125/78 93 Nasal Cannula 2.0 98.2 06/22/17 08:00 101 06/22/17 04:00 98.2 97 22 127/75 93 Nasal Cannula 2.0 98.2 06/22/17 04:00 94 06/22/17 00:00 97.0 95 20 105/72 93 Nasal Cannula 2.0 97.0 06/22/17 00:00 94 06/21/17 20:00 101 06/21/17 20:00 99.3 101 20 118/69 92 99.3 06/21/17 19:11 95 20 Nasal Cannula 2.0 28 06/21/17 16:00 98.6 114 20 131/75 95 Nasal Cannula 2.0 98.6 06/21/17 16:00 113 Intake and Output 06/21/17 06/22/17 19:00 07:00 Intake Total 1134 ml 1586.6 ml Balance 1134 ml 1586.6 ml Intake Oral 60 ml IV Total 864 ml 816.6 ml Tube Feeding 210 ml 770 ml # Voids 3 2 Laboratory Tests 06/22/17 07:00: White Blood Count 11.0H, Red Blood Count 3.84L, Hemoglobin 12.1L, Hematocrit 35.7L, Mean Corpuscular Volume 93, Mean Corpuscular Hemoglobin 31.6H, Mean Corpuscular Hemoglobin Concent 34.0, Red Cell Distribution Width 12.8, Platelet Count 120L, Mean Platelet Volume 12.2H, Neutrophils (%) (Auto) 70.3, Lymphocytes (%) (Auto) 22.7, Monocytes (%) (Auto) 5.0, Eosinophils (%) (Auto) 1.4, Basophils (%) (Auto) 0.6, Sodium Level 153H, Potassium Level 3.2L, Chloride Level 117H, Carbon Dioxide Level 25, Anion Gap 11, Blood Urea Nitrogen 19H, Creatinine 1.0, Estimat Glomerular Filtration Rate > 60, Glucose Level 311H , Calcium Level 7.9L, Triglycerides Level 255H, Cholesterol Level 142, LDL Cholesterol 89, HDL Cholesterol 16L, Cholesterol/HDL Ratio 8.9H, Vancomycin Level Trough 8.7 Height (Feet): 5 Height (Inches): 8.00 Weight (Pounds): 140 Objective GENERAL: Chronically ill-looking male, in no acute distress. HEAD AND NECK: No JVP. No LAD. Head is atraumatic and normocephalic. Extraocular movement intact. Pupils are reactive to light and accommodation. LUNGS: He has bilateral rhonchi on both sides. CARDIAC: Tachy. S1 and S2. No murmur. No rub. ABDOMEN: Soft. G-tube is in place. Nontender and nondistended. EXTREMITIES: No edema. No clubbing. No cyanosis. TONY CHOPRA Jun 22, 2017 15:57
[2017-06-22 16:00] VITALS: BP 120/69
--- NOTE | 2017-06-22 17:33 | Cardiology Report ---
APPROVED REPORT EKG Measurement Heart [id number] Sinus tachycardia Otherwise normal ECG
[2017-06-22] MEDS ORDERED: Vancomycin 1250mg/D5W 250ml IVPB SCH (18:00)
[2017-06-22] MEDS ORDERED: Morphine Sulfate 4mg/ml Inj IVP PRN (19:00)
[2017-06-22] MEDS ORDERED: LORazepam Inj 2mg/ml 1ml IV PRN (19:00)
[2017-06-22] MEDS ORDERED: Albuterol/Ipratropium 3ml neb HHN PRN (19:00)
[2017-06-22] MEDS ORDERED: Promethazine/Codeine 5ml UD ORAL PRN (19:00)
[2017-06-22] MEDS ORDERED: Miralax 17gm pkt ORAL PRN (19:00)
--- NOTE | 2017-06-22 19:58 | Cardiology Progress Note ---
Assessment/Plan Assessment/Plan 1. Sinus tachycardia, resolved, likely due to hypovolemia given evidence of free water deficit. There is no need for AV lico agents at this point. 2. History of cerebrovascular accident with aphasia, recommend aspirin and statin. 3. History of diabetes mellitus. 4. History of hypertension. Subjective Subjective Transferred to the med-surg unit. Objective Last 24 Hour Vital Signs Date Time Temp Pulse Resp B/P (MAP) Pulse Ox O2 Delivery O2 Flow Rate FiO2 06/22/17 16:00 89 06/22/17 16:00 98.1 84 20 120/69 95 Nasal Cannula 2.0 98.1 06/22/17 12:00 98.9 91 20 134/81 95 Nasal Cannula 2.0 98.9 06/22/17 12:00 90 06/22/17 08:22 90 20 Nasal Cannula 2.0 28 06/22/17 08:00 98.2 91 20 125/78 93 Nasal Cannula 2.0 98.2 06/22/17 08:00 101 06/22/17 04:00 98.2 97 22 127/75 93 Nasal Cannula 2.0 98.2 06/22/17 04:00 94 06/22/17 00:00 97.0 95 20 105/72 93 Nasal Cannula 2.0 97.0 06/22/17 00:00 94 06/21/17 20:00 101 06/21/17 20:00 99.3 101 20 118/69 92 99.3 Intake and Output 06/21/17 06/22/17 19:00 07:00 Intake Total 1134 ml 1586.6 ml Balance 1134 ml 1586.6 ml Intake Oral 60 ml IV Total 864 ml 816.6 ml Tube Feeding 210 ml 770 ml # Voids 3 2 Laboratory Tests Test 06/22/17 07:00 White Blood Count 11.0 K/UL (4.8-10.8) H Red Blood Count 3.84 M/UL (4.70-6.10) L Hemoglobin 12.1 G/DL (14.2-18.0) L Hematocrit 35.7 % (42.0-52.0) L Mean Corpuscular Volume 93 FL (80-99) Mean Corpuscular Hemoglobin 31.6 PG (27.0-31.0) H Mean Corpuscular Hemoglobin Concent 34.0 G/DL (32.0-36.0) Red Cell Distribution Width 12.8 % (11.6-14.8) Platelet Count 120 K/UL (150-450) L Mean Platelet Volume 12.2 FL (6.5-10.1) H Neutrophils (%) (Auto) 70.3 % (45.0-75.0) Lymphocytes (%) (Auto) 22.7 % (20.0-45.0) Monocytes (%) (Auto) 5.0 % (1.0-10.0) Eosinophils (%) (Auto) 1.4 % (0.0-3.0) Basophils (%) (Auto) 0.6 % (0.0-2.0) Sodium Level 153 MMOL/L (136-145) H Potassium Level 3.2 MMOL/L (3.5-5.1) L Chloride Level 117 MMOL/L (98-107) H Carbon Dioxide Level 25 MMOL/L (21-32) Anion Gap 11 mmol/L (5-15) Blood Urea Nitrogen 19 mg/dL (7-18) H Creatinine 1.0 MG/DL (0.55-1.30) Estimat Glomerular Filtration Rate > 60 mL/min (>60) Glucose Level 311 MG/DL (74-106) H Calcium Level 7.9 MG/DL (8.5-10.1) L Triglycerides Level 255 MG/DL (30-150) H Cholesterol Level 142 MG/DL (< 200) LDL Cholesterol 89 mg/dL (<100) HDL Cholesterol 16 MG/DL (40-60) L Cholesterol/HDL Ratio 8.9 (3.3-4.4) H Vancomycin Level Trough 8.7 ug/mL (5.0-12.0) Microbiology Date/Time Source Procedure Growth Status 06/20/17 10:35 Blood Blood Culture - Preliminary NO GROWTH AFTER 24 HOURS Resulted 06/20/17 10:30 Blood Blood Culture - Preliminary NO GROWTH AFTER 24 HOURS Resulted 06/20/17 11:40 Nasal Nares MRSA Culture - Final NO METHICILLIN RESISTANT STAPH AUREUS... Complete 06/20/17 10:35 Nasal Nares Influenza Types A,B Antigen (NILS) - Final Complete Objective HEENT: Atraumatic and normocephalic. ENT, pupils are equal, round, and reactive to light and accommodation. Extraocular muscles are intact. NECK: JVP less than 5 cm. No carotid bruits. Carotid upstrokes 2+ bilaterally. CARDIOVASCULAR: Normal S1 and S2. Regular rate and rhythm. No murmurs, gallops , or rubs. LUNGS: Clear to auscultation bilaterally. ABDOMEN: Soft, nontender, and nondistended. No hepatosplenomegaly. Positive bowel sounds. Positive G-tube in place. EXTREMITIES: No evidence of edema, clubbing, or cyanosis. RENEE WASHINGTON Jun 22, 2017 19:58
[2017-06-22 20:00] VITALS: BP 118/72
[2017-06-22] MEDS ORDERED: NovoLOG Insulin Flexpen SUBQ SCH (21:00)
[2017-06-22] MEDS ORDERED: Vancomycin 1250mg/D5W 250ml 250 ML IVPB SCH (21:00)
[2017-06-22] MEDS: Vancomycin 1250mg/D5W 250ml 250 ML IVPB SCH (22:09)
[2017-06-23] VITALS: BP 107/67
[2017-06-23] MEDS ORDERED: NovoLOG Insulin Flexpen SUBQ SCH
[2017-06-23] MEDS: NovoLOG Insulin Flexpen SUBQ SCH ×5 (00:24→23:53)
[2017-06-23 04:00] VITALS: BP 117/68
[2017-06-23] MEDS: Cefepime HCl 2 GM in D5W 110 ML IV SCH ×2 (04:07→19:03)
[2017-06-23 05:34] LABS: BASOPHILS % (AUTO) 0.5 % (0.0-2.0); EOSINOPHILS % (AUTO) 3.2 % (0.0-3.0); HEMATOCRIT 35.1 % (42.0-52.0); HEMOGLOBIN 11.9 G/DL (14.2-18.0); LYMPHOCYTES % (AUTO) 25.6 % (20.0-45.0); MEAN CORPUSCULAR VOLUME 91 FL (80-99); MONOCYTES % (AUTO) 6.3 % (1.0-10.0); NEUTROPHILS % (AUTO) 64.4 % (45.0-75.0); PLATELET COUNT 118 K/UL (150-450); RED BLOOD COUNT 3.84 M/UL (4.70-6.10); RED CELL DISTRIBUTION WIDTH 12.3 % (11.6-14.8); WHITE BLOOD COUNT 8.5 K/UL (4.8-10.8)
[2017-06-23 05:53] LABS: ANION GAP 8 mmol/L (5-15); BLOOD UREA NITROGEN 13 mg/dL (7-18); CALCIUM 7.9 MG/DL (8.5-10.1); CARBON DIOXIDE 26 MMOL/L (21-32); CHLORIDE 109 MMOL/L (98-107); CREATININE 0.8 MG/DL (0.55-1.30); POTASSIUM 3.5 MMOL/L (3.5-5.1); SODIUM 143 MMOL/L (136-145)
[2017-06-23 08:00] VITALS: BP 114/72
--- NOTE | 2017-06-23 08:00 | Consultation ---
DATE OF CONSULTATION: 06/22/2017 NOTE: "POOR AUDIO QUALITY" CONSULTING PHYSICIAN: Devin Schmitz M.D. ATTENDING/REFERRING PHYSICIAN: Tyler Lopez D.O. HISTORY OF PRESENT ILLNESS: The patient is a 67-year-old male patient with pneumonia. This patient came to the hospital with pneumonia, hospitalized recently, but he has underlying diagnosis of dementia. He has some mood lability his cognition has declined below baseline secondary to stress of his present illness. That is why, his attending physician has requested daily psychiatric consultation. the patient on that presentation, he is confused, disorganized, and he seemed to have poor insight into his psychiatric illness. ALLERGIES: He has no known drug allergies. MEDICAL HISTORY: He has pneumonia, respiratory insufficiency. MEDICATIONS: His psychotropic medications on admission, he is on Aricept 10 mg per G-tube daily. SOCIAL HISTORY: He is financially supported by [employer] and Medicare. Currently . SUBSTANCE ABUSE HISTORY: Denies drug and alcohol use. PSYCHIATRIC HISTORY: Major depression, probable pseudodementia. MENTAL STATUS EXAMINATION: This is a 67-year-old male. Appearance disheveled. Attitude irritable, agitated. Affect guarded and restricted. Intellect poor. Mood depressed and anxious. Motor activity, psychomotor agitation. Attention span is poor. Orientation x2. Speech is low volume and slurred. Thought process is disorganized. Thought content, auditory hallucinations and paranoid delusions. Insight and judgment is poor. DIAGNOSIS: Major depressive disorder, mild, recurrent, with psychotic features, rule out pseudodementia. Medical pneumonia, psychosocial, and financial. PLAN: I am going to continue this patient on Aricept 10 mg per G-tube daily, Ativan mg q.2 hours p.r.n. anxiety and agitation. I am also going to add Namenda 5 mg twice a day per G-tube to prevent any further decline in his cognition. Provided 20 minutes of supportive therapy and encouraged him to interact appropriately with staff and other patients. He has no known drug allergies. He was seen and assessed at bedside. Chart was reviewed and discussed with staff. I would like to thank Dr. Tyler Lopez for this interesting consultation. Devin Schmitz M.D. DR: Ernesto JOB#: [id number] CC:
--- NOTE | 2017-06-23 08:05 | Cardiology Progress Note ---
Assessment/Plan Assessment/Plan 1. Sinus tachycardia, resolved, likely due to hypovolemia given evidence of free water deficit. There is no need for AV lico agents at this point. 2. History of cerebrovascular accident with aphasia, recommend aspirin and statin. 3. History of diabetes mellitus, continue ASA and atorvastatin. 4. History of hypertension, on diet only. 5. Dyslipidemia, essentially low HDL on atorvastatin. Subjective Subjective Transferred to the med-surg unit. No cardiac events reported. Objective Last 24 Hour Vital Signs Date Time Temp Pulse Resp B/P (MAP) Pulse Ox O2 Delivery O2 Flow Rate FiO2 06/23/17 04:00 98.2 73 20 117/68 91 98.2 06/23/17 00:00 98.3 85 20 107/67 94 98.3 06/22/17 20:00 99.2 89 19 118/72 95 99.2 06/22/17 16:00 89 06/22/17 16:00 98.1 84 20 120/69 95 Nasal Cannula 2.0 98.1 06/22/17 12:00 98.9 91 20 134/81 95 Nasal Cannula 2.0 98.9 06/22/17 12:00 90 06/22/17 08:22 90 20 Nasal Cannula 2.0 28 Intake and Output 06/22/17 06/23/17 19:00 07:00 Intake Total 170 ml 1280.000 ml Balance 170 ml 1280.000 ml Intake Oral 100 ml Free Water 60 ml 660 ml IV Total 360.000 ml Tube Feeding 10 ml 260 ml # Voids 2 3 Laboratory Tests Test 06/23/17 05:20 White Blood Count 8.5 K/UL (4.8-10.8) Red Blood Count 3.84 M/UL (4.70-6.10) L Hemoglobin 11.9 G/DL (14.2-18.0) L Hematocrit 35.1 % (42.0-52.0) L Mean Corpuscular Volume 91 FL (80-99) Mean Corpuscular Hemoglobin 30.9 PG (27.0-31.0) Mean Corpuscular Hemoglobin Concent 33.9 G/DL (32.0-36.0) Red Cell Distribution Width 12.3 % (11.6-14.8) Platelet Count 118 K/UL (150-450) L Mean Platelet Volume 12.6 FL (6.5-10.1) H Neutrophils (%) (Auto) 64.4 % (45.0-75.0) Lymphocytes (%) (Auto) 25.6 % (20.0-45.0) Monocytes (%) (Auto) 6.3 % (1.0-10.0) Eosinophils (%) (Auto) 3.2 % (0.0-3.0) H Basophils (%) (Auto) 0.5 % (0.0-2.0) Sodium Level 143 MMOL/L (136-145) # Potassium Level 3.5 MMOL/L (3.5-5.1) Chloride Level 109 MMOL/L (98-107) H Carbon Dioxide Level 26 MMOL/L (21-32) Anion Gap 8 mmol/L (5-15) Blood Urea Nitrogen 13 mg/dL (7-18) Creatinine 0.8 MG/DL (0.55-1.30) Estimat Glomerular Filtration Rate > 60 mL/min (>60) Glucose Level 309 MG/DL (74-106) H Calcium Level 7.9 MG/DL (8.5-10.1) L Microbiology Date/Time Source Procedure Growth Status 06/20/17 10:35 Blood Blood Culture - Preliminary NO GROWTH AFTER 48 HOURS Resulted 06/20/17 10:30 Blood Blood Culture - Preliminary NO GROWTH AFTER 48 HOURS Resulted 06/20/17 11:40 Nasal Nares MRSA Culture - Final NO METHICILLIN RESISTANT STAPH AUREUS... Complete 06/20/17 10:35 Nasal Nares Influenza Types A,B Antigen (NILS) - Final Complete Objective HEENT: Atraumatic and normocephalic. ENT, pupils are equal, round, and reactive to light and accommodation. Extraocular muscles are intact. NECK: JVP less than 5 cm. No carotid bruits. Carotid upstrokes 2+ bilaterally. CARDIOVASCULAR: Normal S1 and S2. Regular rate and rhythm. No murmurs, gallops , or rubs. LUNGS: Clear to auscultation bilaterally. ABDOMEN: Soft, nontender, and nondistended. No hepatosplenomegaly. Positive bowel sounds. Positive G-tube in place. EXTREMITIES: No evidence of edema, clubbing, or cyanosis. RENEE WASHINGTON Jun 23, 2017 08:05
[2017-06-23] MEDS: Heparin 5000 units/ml inj SUBQ SCH ×2 (09:00→20:38)
--- NOTE | 2017-06-23 09:46 | Nephrology Progress Note ---
Assessment/Plan Assessment 1. Hypernatremia improving 2. Hypokalemia. 3. Hypocalcemia. 4. Hyperglycemia. 5. Acute versus chronic renal failure. 6. Febrile illness, most likely urinary tract infection. Plan start feeding per g tube replace k continue IVF check vit d iv anabiotic Subjective Subjective more responsive today no acute events over night Objective Objective Last 24 Hour Vital Signs Date Time Temp Pulse Resp B/P (MAP) Pulse Ox O2 Delivery O2 Flow Rate FiO2 06/23/17 04:00 98.2 73 20 117/68 91 98.2 06/23/17 00:00 98.3 85 20 107/67 94 98.3 06/22/17 20:00 99.2 89 19 118/72 95 99.2 06/22/17 16:00 89 06/22/17 16:00 98.1 84 20 120/69 95 Nasal Cannula 2.0 98.1 06/22/17 12:00 98.9 91 20 134/81 95 Nasal Cannula 2.0 98.9 06/22/17 12:00 90 Intake and Output 06/22/17 06/23/17 19:00 07:00 Intake Total 170 ml 1280.000 ml Balance 170 ml 1280.000 ml Intake Oral 100 ml Free Water 60 ml 660 ml IV Total 360.000 ml Tube Feeding 10 ml 260 ml # Voids 2 3 Laboratory Tests 06/23/17 05:20: White Blood Count 8.5, Red Blood Count 3.84L, Hemoglobin 11.9L, Hematocrit 35.1L , Mean Corpuscular Volume 91, Mean Corpuscular Hemoglobin 30.9, Mean Corpuscular Hemoglobin Concent 33.9, Red Cell Distribution Width 12.3, Platelet Count 118L, Mean Platelet Volume 12.6H, Neutrophils (%) (Auto) 64.4, Lymphocytes (%) (Auto) 25.6, Monocytes (%) (Auto) 6.3, Eosinophils (%) (Auto) 3.2H, Basophils (%) (Auto) 0.5, Sodium Level 143#, Potassium Level 3.5, Chloride Level 109H, Carbon Dioxide Level 26, Anion Gap 8, Blood Urea Nitrogen 13, Creatinine 0.8, Estimat Glomerular Filtration Rate > 60, Glucose Level 309H , Calcium Level 7.9L Height (Feet): 5 Height (Inches): 8.00 Weight (Pounds): 140 Objective GENERAL: Chronically ill-looking male, in no acute distress. HEAD AND NECK: No JVP. No LAD. Head is atraumatic and normocephalic. Extraocular movement intact. Pupils are reactive to light and accommodation. LUNGS: He has bilateral rhonchi on both sides. CARDIAC: Tachy. S1 and S2. No murmur. No rub. ABDOMEN: Soft. G-tube is in place. Nontender and nondistended. EXTREMITIES: No edema. No clubbing. No cyanosis. TONY CHOPRA Jun 23, 2017 09:46
[2017-06-23] MEDS: Aspirin EC 81mg tab ORAL SCH (09:54)
[2017-06-23] MEDS: Donepezil 10mg tab GT SCH (09:54)
[2017-06-23] MEDS: Memantine 5 MG TAB GT SCH ×2 (09:54→19:10)
[2017-06-23] MEDS: Phospha 250 Neutral tab GT SCH ×3 (09:54→19:10)
[2017-06-23] MEDS: Vancomycin 1250mg/D5W 250ml 250 ML IVPB SCH ×2 (09:56→20:48)
[2017-06-23 12:00] VITALS: BP 118/75
--- NOTE | 2017-06-23 13:54 | General Progress Note ---
Assessment/Plan Problem List: (1) UTI (urinary tract infection) ICD Codes: N39.0 - Urinary tract infection, site not specified SNOMED: 64081179 (2) Elevated troponin ICD Codes: R74.8 - Abnormal levels of other serum enzymes SNOMED: 088421164, 113203776, 319537145 (3) Pneumonia ICD Codes: J18.9 - Pneumonia, unspecified organism SNOMED: 425790581 Qualifiers: Qualified Codes: J18.9 - Pneumonia, unspecified organism (4) Fever ICD Codes: R50.9 - Fever, unspecified SNOMED: 261200349 (5) Sepsis ICD Codes: A41.9 - Sepsis, unspecified organism SNOMED: 21356093 Qualifiers: Qualified Codes: A41.9 - Sepsis, unspecified organism (6) Diabetes ICD Codes: E11.9 - Type 2 diabetes mellitus without complications SNOMED: 03961745 (7) Renal insufficiency ICD Codes: N28.9 - Disorder of kidney and ureter, unspecified SNOMED: 101790904 Status: stable, progressing, tolerating diet Assessment/Plan o2 pulm tx abx cbc bmp am dc plan if clear Subjective Constitutional: Reports: weakness Allergies: Coded Allergies: No Known Allergies (Unverified , 04/14/16) All Systems: reviewed and negative except above Subjective o2 nc sleepy calm in bed Objective Last 24 Hour Vital Signs Date Time Temp Pulse Resp B/P (MAP) Pulse Ox O2 Delivery O2 Flow Rate FiO2 06/23/17 12:00 98.1 88 18 118/75 93 Room Air 98.1 06/23/17 08:00 98.6 91 18 114/72 94 Room Air 98.6 06/23/17 04:00 98.2 73 20 117/68 91 98.2 06/23/17 00:00 98.3 85 20 107/67 94 98.3 06/22/17 20:00 99.2 89 19 118/72 95 99.2 06/22/17 16:00 89 06/22/17 16:00 98.1 84 20 120/69 95 Nasal Cannula 2.0 98.1 Intake and Output 06/22/17 06/23/17 19:00 07:00 Intake Total 170 ml 1280.000 ml Balance 170 ml 1280.000 ml Intake Oral 100 ml Free Water 60 ml 660 ml IV Total 360.000 ml Tube Feeding 10 ml 260 ml # Voids 2 3 Laboratory Tests 06/23/17 05:20: White Blood Count 8.5, Red Blood Count 3.84L, Hemoglobin 11.9L, Hematocrit 35.1L , Mean Corpuscular Volume 91, Mean Corpuscular Hemoglobin 30.9, Mean Corpuscular Hemoglobin Concent 33.9, Red Cell Distribution Width 12.3, Platelet Count 118L, Mean Platelet Volume 12.6H, Neutrophils (%) (Auto) 64.4, Lymphocytes (%) (Auto) 25.6, Monocytes (%) (Auto) 6.3, Eosinophils (%) (Auto) 3.2H, Basophils (%) (Auto) 0.5, Sodium Level 143#, Potassium Level 3.5, Chloride Level 109H, Carbon Dioxide Level 26, Anion Gap 8, Blood Urea Nitrogen 13, Creatinine 0.8, Estimat Glomerular Filtration Rate > 60, Glucose Level 309H , Calcium Level 7.9L Height (Feet): 5 Height (Inches): 8.00 Weight (Pounds): 140 General Appearance: lethargic EENT: normal ENT inspection Neck: normal alignment, supple, normal inspection Cardiovascular: normal peripheral pulses, normal rate, regular rhythm Respiratory/Chest: chest wall non-tender, normal breath sounds Abdomen: normal bowel sounds, non tender, soft Extremities: normal inspection Edema: no edema noted Arm (L), no edema noted Arm (R), no edema noted Leg (L), no edema noted Leg (R), no edema noted Pedal (L), no edema noted Pedal (R), no edema noted Generalized Neurologic: motor weakness Skin: normal pigmentation, warm/dry SARAH THOMAS Jun 23, 2017 13:54
--- NOTE | 2017-06-23 14:45 | Pulmonology Progress Note ---
Assessment/Plan Problems: (1) Pneumonia (2) Aspiration pneumonia (3) Sepsis (4) G-tube site cellulitis (5) History of CVA (cerebrovascular accident) (6) Diabetes Assessment/Plan looks better improving scott culture IV fluids IV abx titrate fio2 to sat of 92% respiratory treatment check electrolytes dvt prophylaxis aspiration precaution dc planning soon Subjective ROS Limited/Unobtainable: No Constitutional: Reports: no symptoms HEENT: Repors: no symptoms Respiratory: Reports: no symptoms Allergies: Coded Allergies: No Known Allergies (Unverified , 04/14/16) Objective Last 24 Hour Vital Signs Date Time Temp Pulse Resp B/P (MAP) Pulse Ox O2 Delivery O2 Flow Rate FiO2 06/23/17 12:00 98.1 88 18 118/75 93 Room Air 98.1 06/23/17 08:00 98.6 91 18 114/72 94 Room Air 98.6 06/23/17 04:00 98.2 73 20 117/68 91 98.2 06/23/17 00:00 98.3 85 20 107/67 94 98.3 06/22/17 20:00 99.2 89 19 118/72 95 99.2 06/22/17 16:00 89 06/22/17 16:00 98.1 84 20 120/69 95 Nasal Cannula 2.0 98.1 Intake and Output 06/22/17 06/23/17 19:00 07:00 Intake Total 170 ml 1280.000 ml Balance 170 ml 1280.000 ml Intake Oral 100 ml Free Water 60 ml 660 ml IV Total 360.000 ml Tube Feeding 10 ml 260 ml # Voids 2 3 Objective General Appearance: cachectic HEENT: normocephalic Respiratory/Chest: chest wall non-tender, lungs clear Breasts: no masses Cardiovascular: normal rate Abdomen: normal bowel sounds, soft, non tender Extremities: no cyanosis Skin: no ulcers Neurologic/Psychiatric: no motor/sensory deficits General Appearance: WD/WN Laboratory Tests 06/23/17 05:20: White Blood Count 8.5, Red Blood Count 3.84L, Hemoglobin 11.9L, Hematocrit 35.1L , Mean Corpuscular Volume 91, Mean Corpuscular Hemoglobin 30.9, Mean Corpuscular Hemoglobin Concent 33.9, Red Cell Distribution Width 12.3, Platelet Count 118L, Mean Platelet Volume 12.6H, Neutrophils (%) (Auto) 64.4, Lymphocytes (%) (Auto) 25.6, Monocytes (%) (Auto) 6.3, Eosinophils (%) (Auto) 3.2H, Basophils (%) (Auto) 0.5, Sodium Level 143#, Potassium Level 3.5, Chloride Level 109H, Carbon Dioxide Level 26, Anion Gap 8, Blood Urea Nitrogen 13, Creatinine 0.8, Estimat Glomerular Filtration Rate > 60, Glucose Level 309H , Calcium Level 7.9L Current Medications Medications (Trade) Dose Ordered Sig/Xochilt Route PRN Reason Start Time Stop Time Status Last Admin Dose Admin Acetaminophen (Tylenol) 650 mg Q4H PRN ORAL FEVER (T>100.5F) 06/22/17 18:45 07/20/17 18:44 Albuterol/ Ipratropium (Albuterol/ Ipratropium) 3 ml Q4H PRN HHN Shortness of Breath 06/22/17 19:00 06/25/17 18:59 Aspirin (Ecotrin) 81 mg DAILY ORAL 06/23/17 09:00 07/22/17 08:59 06/23/17 09:54 Atorvastatin Calcium (Lipitor) 10 mg BEDTIME ORAL 06/22/17 21:00 07/22/17 20:59 06/22/17 22:08 Cefepime HCl 2 gm/ Dextrose 110 ml @ 220 mls/hr Q12H IV 06/23/17 06:00 06/27/17 17:59 06/23/17 04:07 Clotrimazole (Lotrimin) 1 applic THREE TIMES A DAY TOPIC 06/23/17 09:00 07/22/17 15:59 06/23/17 13:01 Dextrose 1,000 ml @ 50 mls/hr Q20H IV 06/22/17 18:45 07/21/17 18:44 06/23/17 10:42 Dextrose (Dextrose 50%) 25 ml STAT PRN IV Hypoglycemia 06/22/17 19:00 07/22/17 18:59 Dextrose (Dextrose 50%) 50 ml STAT PRN IV Hypoglycemia 06/22/17 19:00 07/22/17 18:59 Donepezil HCl (Aricept) 10 mg DAILY GT 06/23/17 09:00 07/21/17 08:59 06/23/17 09:54 Heparin Sodium (Porcine) (Heparin 5000 units/ml) 5,000 units EVERY 12 HOURS SUBQ 06/22/17 21:00 07/20/17 20:59 Insulin Aspart (NovoLOG) Q6HR SUBQ 06/23/17 00:00 07/20/17 16:59 06/23/17 13:05 Lorazepam (Ativan 2mg/ml 1ml) 2 mg Q2H PRN IV For Anxiety 06/22/17 19:00 06/27/17 18:59 Memantine (Namenda) 5 mg BID GT 06/23/17 09:00 07/22/17 08:59 06/23/17 09:54 Morphine Sulfate (Morphine Sulfate) 4 mg Q4H PRN IVP Severe Pain (Pain Scale 7-10) 06/22/17 19:00 06/27/17 18:59 Ondansetron HCl (Zofran) 4 mg Q6H PRN IVP Nausea & Vomiting 06/22/17 19:00 07/20/17 18:59 Phosphorus (Phospha 250 Neutral) 500 mg TID GT 06/23/17 09:00 07/20/17 17:59 06/23/17 13:02 Polyethylene Glycol (Miralax) 17 gm DAILYPRN PRN ORAL Constipation 06/22/17 19:00 07/22/17 18:59 Promethazine HCl/ Codeine (Phenergan with Codeine) 5 ml Q4H PRN ORAL For Cough 06/22/17 19:00 07/20/17 18:59 Vancomycin HCl (Vanco rx to dose) 1 ea DAILYPRN PRN MISC Per rx protocol 06/22/17 19:00 07/22/17 18:59 Vancomycin HCl/ Dextrose 250 ml @ 166.667 mls/hr Q12HR IVPB 06/22/17 22:00 06/27/17 21:59 06/23/17 09:56 Lindsay Salter MD Jun 23, 2017 14:45
[2017-06-23 16:00] VITALS: BP 102/70
[2017-06-23] MEDS ORDERED: Sterile Water For Irrig 2000ml IRRIG ONE (16:02)
[2017-06-23] MEDS ORDERED: Tubing IV Secondary IV ONE (16:02)
[2017-06-23] MEDS ORDERED: 1/2 NS 1000ml IV ONE (16:02)
--- NOTE | 2017-06-23 19:44 | Infectious Diseases Prog Note ---
Assessment/Plan Assessment/Plan ASSESSMENT: The patient is a 67-year-old male with, Fever, SP Leukocytosis, SP Sepsis, SP HCAPn (negative chest x-ray does not rule out, pt has cough and has congested chest) Influenza screening: negative Bilateral groin candidiasis Rule out bacteremia Influenza test negative for influenza A and B. CVA. Diabetes. Hypertension. Status post PEG/dysphagia PLAN: continue the patient on vancomycin and cefepime day # 4 / 7 Apply clotrimazole b.i.d. to the groin. Monitor CBC Monitor BMP. Monitor cultures (blood, sputum). Monitor chest x-ray. Subjective Allergies: Coded Allergies: No Known Allergies (Unverified , 04/14/16) Subjective Afebrile Objective Vital Signs Last 24 Hour Vital Signs Date Time Temp Pulse Resp B/P (MAP) Pulse Ox O2 Delivery O2 Flow Rate FiO2 06/23/17 12:00 98.1 88 18 118/75 93 Room Air 98.1 06/23/17 08:00 98.6 91 18 114/72 94 Room Air 98.6 06/23/17 04:00 98.2 73 20 117/68 91 98.2 06/23/17 00:00 98.3 85 20 107/67 94 98.3 06/22/17 20:00 99.2 89 19 118/72 95 99.2 Height (Feet): 5 Height (Inches): 8.00 Weight (Pounds): 140 HEENT: anicteric Respiratory/Chest: lungs clear Cardiovascular: regular rhythm Abdomen: non distended Laboratory Tests Test 06/23/17 05:20 White Blood Count 8.5 K/UL (4.8-10.8) Red Blood Count 3.84 M/UL (4.70-6.10) L Hemoglobin 11.9 G/DL (14.2-18.0) L Hematocrit 35.1 % (42.0-52.0) L Mean Corpuscular Volume 91 FL (80-99) Mean Corpuscular Hemoglobin 30.9 PG (27.0-31.0) Mean Corpuscular Hemoglobin Concent 33.9 G/DL (32.0-36.0) Red Cell Distribution Width 12.3 % (11.6-14.8) Platelet Count 118 K/UL (150-450) L Mean Platelet Volume 12.6 FL (6.5-10.1) H Neutrophils (%) (Auto) 64.4 % (45.0-75.0) Lymphocytes (%) (Auto) 25.6 % (20.0-45.0) Monocytes (%) (Auto) 6.3 % (1.0-10.0) Eosinophils (%) (Auto) 3.2 % (0.0-3.0) H Basophils (%) (Auto) 0.5 % (0.0-2.0) Sodium Level 143 MMOL/L (136-145) # Potassium Level 3.5 MMOL/L (3.5-5.1) Chloride Level 109 MMOL/L (98-107) H Carbon Dioxide Level 26 MMOL/L (21-32) Anion Gap 8 mmol/L (5-15) Blood Urea Nitrogen 13 mg/dL (7-18) Creatinine 0.8 MG/DL (0.55-1.30) Estimat Glomerular Filtration Rate > 60 mL/min (>60) Glucose Level 309 MG/DL (74-106) H Calcium Level 7.9 MG/DL (8.5-10.1) L Current Medications Medications (Trade) Dose Ordered Sig/Xochilt Route PRN Reason Start Time Stop Time Status Last Admin Dose Admin Acetaminophen (Tylenol) 650 mg Q4H PRN ORAL FEVER (T>100.5F) 06/22/17 18:45 07/20/17 18:44 Albuterol/ Ipratropium (Albuterol/ Ipratropium) 3 ml Q4H PRN HHN Shortness of Breath 06/22/17 19:00 06/25/17 18:59 Aspirin (Ecotrin) 81 mg DAILY ORAL 06/23/17 09:00 07/22/17 08:59 06/23/17 09:54 Atorvastatin Calcium (Lipitor) 10 mg BEDTIME ORAL 06/22/17 21:00 07/22/17 20:59 06/22/17 22:08 Cefepime HCl 2 gm/ Dextrose 110 ml @ 220 mls/hr Q12H IV 06/23/17 06:00 06/27/17 17:59 06/23/17 19:03 Clotrimazole (Lotrimin) 1 applic THREE TIMES A DAY TOPIC 06/23/17 09:00 07/22/17 15:59 06/23/17 19:04 Dextrose (Dextrose 50%) 25 ml STAT PRN IV Hypoglycemia 06/22/17 19:00 07/22/17 18:59 Dextrose (Dextrose 50%) 50 ml STAT PRN IV Hypoglycemia 06/22/17 19:00 07/22/17 18:59 Donepezil HCl (Aricept) 10 mg DAILY GT 06/23/17 09:00 07/21/17 08:59 06/23/17 09:54 Heparin Sodium (Porcine) (Heparin 5000 units/ml) 5,000 units EVERY 12 HOURS SUBQ 06/22/17 21:00 07/20/17 20:59 Insulin Aspart (NovoLOG) Q6HR SUBQ 06/23/17 00:00 07/20/17 16:59 06/23/17 19:10 Lorazepam (Ativan 2mg/ml 1ml) 2 mg Q2H PRN IV For Anxiety 06/22/17 19:00 06/27/17 18:59 Memantine (Namenda) 5 mg BID GT 06/23/17 09:00 07/22/17 08:59 06/23/17 19:10 Morphine Sulfate (Morphine Sulfate) 4 mg Q4H PRN IVP Severe Pain (Pain Scale 7-10) 06/22/17 19:00 06/27/17 18:59 Ondansetron HCl (Zofran) 4 mg Q6H PRN IVP Nausea & Vomiting 06/22/17 19:00 07/20/17 18:59 Phosphorus (Phospha 250 Neutral) 500 mg TID GT 06/23/17 09:00 07/20/17 17:59 06/23/17 19:10 Polyethylene Glycol (Miralax) 17 gm DAILYPRN PRN ORAL Constipation 06/22/17 19:00 07/22/17 18:59 Promethazine HCl/ Codeine (Phenergan with Codeine) 5 ml Q4H PRN ORAL For Cough 06/22/17 19:00 07/20/17 18:59 Vancomycin HCl (Vanco rx to dose) 1 ea DAILYPRN PRN MISC Per rx protocol 06/22/17 19:00 07/22/17 18:59 Vancomycin HCl/ Dextrose 250 ml @ 166.667 mls/hr Q12HR IVPB 06/22/17 22:00 06/27/17 21:59 06/23/17 09:56 Rocco Perez MD Jun 23, 2017 19:44
[2017-06-23 20:00] VITALS: BP 114/73
[2017-06-24] VITALS: BP 118/70
--- NOTE | 2017-06-24 02:15 | Progress Note ---
DATE: 06/23/2017 NOTE: POOR AUDIO SUBJECTIVE: The patient is a 67-year-old male patient with pneumonia. He has confusion, disorganized thought process, and mood lability secondary to the stress of his medical illness . The patient does have some mood lability, confusion, and disorganized thought process and because of that, his attending physician has requested daily psychiatric consultation. . MENTAL STATUS EXAMINATION: This is a 67-year-old male. Appearance disheveled. Attitude irritable, agitated. Affect guarded and restricted. Intellect poor. Mood depressed and anxious. Motor activity, psychomotor agitation. Attention span is poor. Orientation x2. Speech is pressured. Thought process is disorganized. Thought content, auditory hallucinations and paranoid delusions. Insight and judgment is poor. DIAGNOSIS: PLAN: Aricept 10 mg p.o. daily, Ativan 2 mg every 2 hours p.r.n., and Namenda 5 mg twice a day. An 18 to 20 minutes of supportive therapy provided. Chart was reviewed and discussed with staff. Seen and assessed at the bedside. Devin Schmitz M.D. DR: FABRICE JOB#: [id number] CC:
[2017-06-24 04:00] VITALS: BP 118/59
--- NOTE | 2017-06-24 04:45 | Consultation ---
DATE OF CONSULTATION: 06/22/2017 PSYCHOTHERAPY CONSULTATION PROGRESS NOTE CONSULTING PHYSICIAN: Oren Bingham M.D. TREATING ATTENDING PHYSICIAN: Tyler Lopez D.O. HISTORY OF PRESENT ILLNESS: The patient is a 67-year-old male patient, who was brought to the hospital for mood lability, pneumonia, and a possible history of dementia. He has been confused and disorganized and helpless, and for these reasons, he was referred for psychotherapeutic services. This clinician assessed this patient. The patient is confused and disorganized. He is able to communicate. He has very poor insight into his chronic illness. His mood is labile, anxious. He states he wants to go home. He has poor frustration tolerance. The patient states that his mood has been flat, low, and slightly depressed as well. At this time, there is no indication of auditory or visual hallucinations. There is no indication of suicidal or homicidal thoughts of ideation. PAST MEDICAL HISTORY: Includes history of respiratory insufficiency and pneumonia. ALLERGIES: The patient has no known drug allergies. SUBSTANCE ABUSE HISTORY: The patient has no history of alcohol use, illicit drug abuse, or smoking cigarettes. PSYCHIATRIC HISTORY: The patient has a possible history of depression. SOCIAL HISTORY: The patient is a 67-year-old male patient from [facility], financially sustained through [facility]. He is a male. MENTAL STATUS EXAMINATION: The patient is alert and oriented to person and place. Mood is dysphoric. Affect is blunted. Thought process, disorganized. Thought content, confused. He has poor attention and concentration. Poor insight, judgment, and impulse control. Assessed the patient's altered mental status. Provided the patient with reality orientation, supportive therapy, encouraging the patient to participate in treatment milieu. DIAGNOSIS: Major depressive disorder, recurrent, moderate with psychotic features. This clinician assessed the patient, provided the patient with reality orientation, supportive psychotherapy. Continue with behavioral management. This clinician has reviewed the patient's chart. Discussed the treatment with treatment team. Oren Bingham PsyD. DR: WING JOB#: [id number] CC:
[2017-06-24] MEDS: Cefepime HCl 2 GM in D5W 110 ML IV SCH (05:04)
[2017-06-24] MEDS: NovoLOG Insulin Flexpen SUBQ SCH ×2 (05:10→12:38)
[2017-06-24 08:00] VITALS: BP 111/75
--- NOTE | 2017-06-24 09:07 | Infectious Diseases Prog Note ---
Assessment/Plan Assessment/Plan ASSESSMENT: The patient is a 67-year-old male with, Fever, SP Leukocytosis, SP Sepsis, SP HCAPn (negative chest x-ray does not rule out, pt has cough and has congested chest) Influenza screening: negative Bilateral groin candidiasis Rule out bacteremia Influenza test negative for influenza A and B. CVA. Diabetes. Hypertension. Status post PEG/dysphagia PLAN: continue the patient on vancomycin and cefepime day # 5 / 7 Apply clotrimazole b.i.d. to the groin. Monitor CBC Monitor BMP. Monitor cultures (blood, sputum). Monitor chest x-ray. Subjective Constitutional: Denies: no symptoms, fever, chills, fatigue, anorexia, drenching sweats, other Allergies: Coded Allergies: No Known Allergies (Unverified , 04/14/16) Subjective Objective Vital Signs Last 24 Hour Vital Signs Date Time Temp Pulse Resp B/P (MAP) Pulse Ox O2 Delivery O2 Flow Rate FiO2 06/24/17 04:00 99.3 80 20 118/59 93 99.3 06/24/17 00:00 99.3 94 18 118/70 93 99.3 06/23/17 20:00 99.3 94 19 114/73 92 99.3 06/23/17 16:00 98.4 88 18 102/70 94 Room Air 98.4 06/23/17 12:00 98.1 88 18 118/75 93 Room Air 98.1 Height (Feet): 5 Height (Inches): 8.00 Weight (Pounds): 140 HEENT: mucous membranes moist Respiratory/Chest: no respiratory distress Cardiovascular: regular rhythm Abdomen: non distended Current Medications Medications (Trade) Dose Ordered Sig/Xochilt Route PRN Reason Start Time Stop Time Status Last Admin Dose Admin Acetaminophen (Tylenol) 650 mg Q4H PRN ORAL FEVER (T>100.5F) 06/22/17 18:45 07/20/17 18:44 Albuterol/ Ipratropium (Albuterol/ Ipratropium) 3 ml Q4H PRN HHN Shortness of Breath 06/22/17 19:00 06/25/17 18:59 Aspirin (Ecotrin) 81 mg DAILY ORAL 06/23/17 09:00 07/22/17 08:59 06/23/17 09:54 Atorvastatin Calcium (Lipitor) 10 mg BEDTIME ORAL 06/22/17 21:00 07/22/17 20:59 06/23/17 20:48 Cefepime HCl 2 gm/ Dextrose 110 ml @ 220 mls/hr Q12H IV 06/23/17 06:00 06/27/17 17:59 06/24/17 05:04 Clotrimazole (Lotrimin) 1 applic THREE TIMES A DAY TOPIC 06/23/17 09:00 07/22/17 15:59 06/23/17 19:04 Dextrose (Dextrose 50%) 25 ml STAT PRN IV Hypoglycemia 06/22/17 19:00 07/22/17 18:59 Dextrose (Dextrose 50%) 50 ml STAT PRN IV Hypoglycemia 06/22/17 19:00 07/22/17 18:59 Donepezil HCl (Aricept) 10 mg DAILY GT 06/23/17 09:00 07/21/17 08:59 06/23/17 09:54 Heparin Sodium (Porcine) (Heparin 5000 units/ml) 5,000 units EVERY 12 HOURS SUBQ 06/22/17 21:00 07/20/17 20:59 Insulin Aspart (NovoLOG) Q6HR SUBQ 06/23/17 00:00 07/20/17 16:59 06/24/17 05:10 Lorazepam (Ativan 2mg/ml 1ml) 2 mg Q2H PRN IV For Anxiety 06/22/17 19:00 06/27/17 18:59 Memantine (Namenda) 5 mg BID GT 06/23/17 09:00 07/22/17 08:59 06/23/17 19:10 Morphine Sulfate (Morphine Sulfate) 4 mg Q4H PRN IVP Severe Pain (Pain Scale 7-10) 06/22/17 19:00 06/27/17 18:59 Ondansetron HCl (Zofran) 4 mg Q6H PRN IVP Nausea & Vomiting 06/22/17 19:00 07/20/17 18:59 Phosphorus (Phospha 250 Neutral) 500 mg TID GT 06/23/17 09:00 07/20/17 17:59 06/23/17 19:10 Polyethylene Glycol (Miralax) 17 gm DAILYPRN PRN ORAL Constipation 06/22/17 19:00 07/22/17 18:59 Promethazine HCl/ Codeine (Phenergan with Codeine) 5 ml Q4H PRN ORAL For Cough 06/22/17 19:00 07/20/17 18:59 Vancomycin HCl (Vanco rx to dose) 1 ea DAILYPRN PRN MISC Per rx protocol 06/22/17 19:00 07/22/17 18:59 Vancomycin HCl/ Dextrose 250 ml @ 166.667 mls/hr Q12HR IVPB 06/22/17 22:00 06/27/17 21:59 06/23/17 20:48 Rocco Perez MD Jun 24, 2017 09:07
[2017-06-24] MEDS: Phospha 250 Neutral tab GT SCH ×2 (09:22→12:37)
[2017-06-24] MEDS: Vancomycin 1250mg/D5W 250ml 250 ML IVPB SCH (09:22)
[2017-06-24] MEDS: Aspirin EC 81mg tab ORAL SCH (09:22)
[2017-06-24] MEDS: Memantine 5 MG TAB GT SCH (09:22)
[2017-06-24] MEDS: Donepezil 10mg tab GT SCH (09:22)
[2017-06-24] MEDS: Heparin 5000 units/ml inj SUBQ SCH (09:24)
[2017-06-24 09:45] LABS: BASOPHILS % (AUTO) 0.6 % (0.0-2.0); HEMATOCRIT 36.8 % (42.0-52.0); HEMOGLOBIN 13.3 G/DL (14.2-18.0); LYMPHOCYTES % (AUTO) 19.6 % (20.0-45.0); MEAN CORPUSCULAR VOLUME 90 FL (80-99); MONOCYTES % (AUTO) 7.2 % (1.0-10.0); NEUTROPHILS % (AUTO) 70.7 % (45.0-75.0); PLATELET COUNT 144 K/UL (150-450); RED BLOOD COUNT 4.08 M/UL (4.70-6.10); RED CELL DISTRIBUTION WIDTH 11.8 % (11.6-14.8); WHITE BLOOD COUNT 8.6 K/UL (4.8-10.8)
[2017-06-24 09:57] LABS: ANION GAP 7 mmol/L (5-15); BLOOD UREA NITROGEN 12 mg/dL (7-18); CALCIUM 8.5 MG/DL (8.5-10.1); CARBON DIOXIDE 27 MMOL/L (21-32); CHLORIDE 107 MMOL/L (98-107); CREATININE 0.8 MG/DL (0.55-1.30); POTASSIUM 3.6 MMOL/L (3.5-5.1); SODIUM 141 MMOL/L (136-145)
[2017-06-24 12:00] VITALS: BP 114/73
--- NOTE | 2017-06-24 13:30 | Progress Note ---
DATE: 06/24/2017 SUBJECTIVE: This patient is a 67-year-old male presents with confusion, disorganized thought process, and mood lability. The reason why he is in the hospital again is because of pneumonia, but this patient has been exhibiting altered mental status and significant decline in his cognition, worsened by stress of his medical illness. That is why, he does require daily psychiatric consultation. So, his attending physician has requested daily psychiatric consultation to prevent any further decline in the patient's cognition and also to reduce his anxiety level. MENTAL STATUS EXAMINATION: This is a 67-year-old male with psychomotor retardation. Mood is depressed. Affect guarded and restricted. Thought process, disorganized and illogical. Denies any current suicidal or homicidal thoughts. He has paranoid delusions. Insight and judgment is poor. DIAGNOSIS: Major depression with psychotic features, rule out pseudodementia. PLAN: Treat him with Aricept 10 mg per G-tube daily, Namenda 5 mg per G-tube twice a day, and Ativan 2 mg IV q.2 hours p.r.n. anxiety and agitation. He will continue to be followed by Psychiatry. An 18 to 20 minutes of supportive therapy provided. Chart was reviewed and discussed with staff. The patient was seen and assessed in his room. Devin Schmitz M.D. DR: FABRICE JOB#: [id number] CC:
--- NOTE | 2017-06-24 15:16 | General Progress Note ---
Assessment/Plan Problem List: (1) UTI (urinary tract infection) ICD Codes: N39.0 - Urinary tract infection, site not specified SNOMED: 08866330 (2) Elevated troponin ICD Codes: R74.8 - Abnormal levels of other serum enzymes SNOMED: 097099316, 081476642, 707710248 (3) Pneumonia ICD Codes: J18.9 - Pneumonia, unspecified organism SNOMED: 544090071 Qualifiers: Qualified Codes: J18.9 - Pneumonia, unspecified organism (4) Fever ICD Codes: R50.9 - Fever, unspecified SNOMED: 531884457 (5) Sepsis ICD Codes: A41.9 - Sepsis, unspecified organism SNOMED: 06250812 Qualifiers: Qualified Codes: A41.9 - Sepsis, unspecified organism (6) Diabetes ICD Codes: E11.9 - Type 2 diabetes mellitus without complications SNOMED: 39178403 (7) Renal insufficiency ICD Codes: N28.9 - Disorder of kidney and ureter, unspecified SNOMED: 229944228 Status: stable, progressing, tolerating diet Assessment/Plan o2 pulm tx abx dc if clear Subjective Constitutional: Reports: weakness Allergies: Coded Allergies: No Known Allergies (Unverified , 04/14/16) All Systems: reviewed and negative except above Subjective o2 nc sleepy calm in bed Objective Last 24 Hour Vital Signs Date Time Temp Pulse Resp B/P (MAP) Pulse Ox O2 Delivery O2 Flow Rate FiO2 06/24/17 12:00 98.0 98 20 114/73 93 Nasal Cannula 2.0 98.0 06/24/17 08:00 98.8 101 22 111/75 92 Nasal Cannula 2.0 98.8 06/24/17 07:22 92 20 Room Air 21 06/24/17 04:00 99.3 80 20 118/59 93 99.3 06/24/17 00:00 99.3 94 18 118/70 93 99.3 06/23/17 20:00 99.3 94 19 114/73 92 99.3 06/23/17 16:00 98.4 88 18 102/70 94 Room Air 98.4 Intake and Output 06/23/17 06/24/17 19:00 07:00 Intake Total 1560 ml 1300.000 ml Output Total 650 ml Balance 910 ml 1300.000 ml Free Water 750 ml 500 ml IV Total 450 ml 470.000 ml Tube Feeding 360 ml 330 ml Output Urine Total 650 ml # Voids 5 # Bowel Movements 1 Laboratory Tests 06/24/17 08:50: White Blood Count 8.6, Red Blood Count 4.08L, Hemoglobin 13.3L, Hematocrit 36.8L , Mean Corpuscular Volume 90, Mean Corpuscular Hemoglobin 32.5H, Mean Corpuscular Hemoglobin Concent 36.1H, Red Cell Distribution Width 11.8, Platelet Count 144L, Mean Platelet Volume 13.5H, Neutrophils (%) (Auto) 70.7, Lymphocytes (%) (Auto) 19.6L, Monocytes (%) (Auto) 7.2, Eosinophils (%) (Auto) 2.0, Basophils (%) (Auto) 0.6, Sodium Level 141, Potassium Level 3.6, Chloride Level 107, Carbon Dioxide Level 27, Anion Gap 7, Blood Urea Nitrogen 12, Creatinine 0.8, Estimat Glomerular Filtration Rate > 60, Glucose Level 310H, Calcium Level 8.5 Height (Feet): 5 Height (Inches): 8.00 Weight (Pounds): 140 General Appearance: lethargic EENT: normal ENT inspection Neck: normal alignment Cardiovascular: normal peripheral pulses, normal rate, regular rhythm Respiratory/Chest: chest wall non-tender, lungs clear, normal breath sounds Abdomen: normal bowel sounds, non tender, soft Extremities: normal inspection Edema: no edema noted Arm (L), no edema noted Arm (R), no edema noted Leg (L), no edema noted Leg (R), no edema noted Pedal (L), no edema noted Pedal (R), no edema noted Generalized Neurologic: motor weakness Skin: normal pigmentation, warm/dry SARAH THOMAS Jun 24, 2017 15:16
--- NOTE | 2017-06-24 15:46 | Pulmonology Progress Note ---
Assessment/Plan Problems: (1) Pneumonia (2) Aspiration pneumonia (3) Sepsis (4) G-tube site cellulitis (5) History of CVA (cerebrovascular accident) (6) Diabetes Assessment/Plan looks better improving scott culture IV fluids IV abx on vancomycin titrate fio2 to sat of 92% respiratory treatment check electrolytes dvt prophylaxis aspiration precaution dc planning soon dc meds reviewed. Subjective ROS Limited/Unobtainable: No Constitutional: Reports: no symptoms HEENT: Repors: no symptoms Respiratory: Reports: no symptoms Allergies: Coded Allergies: No Known Allergies (Unverified , 04/14/16) Objective Last 24 Hour Vital Signs Date Time Temp Pulse Resp B/P (MAP) Pulse Ox O2 Delivery O2 Flow Rate FiO2 06/24/17 12:00 98.0 98 20 114/73 93 Nasal Cannula 2.0 98.0 06/24/17 08:00 98.8 101 22 111/75 92 Nasal Cannula 2.0 98.8 06/24/17 07:22 92 20 Room Air 21 06/24/17 04:00 99.3 80 20 118/59 93 99.3 06/24/17 00:00 99.3 94 18 118/70 93 99.3 06/23/17 20:00 99.3 94 19 114/73 92 99.3 06/23/17 16:00 98.4 88 18 102/70 94 Room Air 98.4 Intake and Output 06/23/17 06/24/17 19:00 07:00 Intake Total 1560 ml 1300.000 ml Output Total 650 ml Balance 910 ml 1300.000 ml Free Water 750 ml 500 ml IV Total 450 ml 470.000 ml Tube Feeding 360 ml 330 ml Output Urine Total 650 ml # Voids 5 # Bowel Movements 1 Objective General Appearance: cachectic HEENT: normocephalic Respiratory/Chest: chest wall non-tender, lungs clear Breasts: no masses Cardiovascular: normal rate Abdomen: normal bowel sounds, soft, non tender Extremities: no cyanosis Skin: no ulcers Neurologic/Psychiatric: no motor/sensory deficits Laboratory Tests 06/24/17 08:50: White Blood Count 8.6, Red Blood Count 4.08L, Hemoglobin 13.3L, Hematocrit 36.8L , Mean Corpuscular Volume 90, Mean Corpuscular Hemoglobin 32.5H, Mean Corpuscular Hemoglobin Concent 36.1H, Red Cell Distribution Width 11.8, Platelet Count 144L, Mean Platelet Volume 13.5H, Neutrophils (%) (Auto) 70.7, Lymphocytes (%) (Auto) 19.6L, Monocytes (%) (Auto) 7.2, Eosinophils (%) (Auto) 2.0, Basophils (%) (Auto) 0.6, Sodium Level 141, Potassium Level 3.6, Chloride Level 107, Carbon Dioxide Level 27, Anion Gap 7, Blood Urea Nitrogen 12, Creatinine 0.8, Estimat Glomerular Filtration Rate > 60, Glucose Level 310H, Calcium Level 8.5 Current Medications Medications (Trade) Dose Ordered Sig/Xochilt Route PRN Reason Start Time Stop Time Status Last Admin Dose Admin Acetaminophen (Tylenol) 650 mg Q4H PRN ORAL FEVER (T>100.5F) 06/22/17 18:45 07/20/17 18:44 Albuterol/ Ipratropium (Albuterol/ Ipratropium) 3 ml Q4H PRN HHN Shortness of Breath 06/22/17 19:00 06/25/17 18:59 Aspirin (Ecotrin) 81 mg DAILY ORAL 06/23/17 09:00 07/22/17 08:59 06/24/17 09:22 Atorvastatin Calcium (Lipitor) 10 mg BEDTIME ORAL 06/22/17 21:00 07/22/17 20:59 06/23/17 20:48 Cefepime HCl 2 gm/ Dextrose 110 ml @ 220 mls/hr Q12H IV 06/23/17 06:00 06/27/17 17:59 06/24/17 05:04 Clotrimazole (Lotrimin) 1 applic THREE TIMES A DAY TOPIC 06/23/17 09:00 07/22/17 15:59 06/24/17 12:37 Dextrose (Dextrose 50%) 25 ml STAT PRN IV Hypoglycemia 06/22/17 19:00 07/22/17 18:59 Dextrose (Dextrose 50%) 50 ml STAT PRN IV Hypoglycemia 06/22/17 19:00 07/22/17 18:59 Donepezil HCl (Aricept) 10 mg DAILY GT 06/23/17 09:00 07/21/17 08:59 06/24/17 09:22 Heparin Sodium (Porcine) (Heparin 5000 units/ml) 5,000 units EVERY 12 HOURS SUBQ 06/22/17 21:00 07/20/17 20:59 06/24/17 09:24 Insulin Aspart (NovoLOG) Q6HR SUBQ 06/23/17 00:00 07/20/17 16:59 06/24/17 12:38 Lorazepam (Ativan 2mg/ml 1ml) 2 mg Q2H PRN IV For Anxiety 06/22/17 19:00 06/27/17 18:59 Memantine (Namenda) 5 mg BID GT 06/23/17 09:00 07/22/17 08:59 06/24/17 09:22 Morphine Sulfate (Morphine Sulfate) 4 mg Q4H PRN IVP Severe Pain (Pain Scale 7-10) 06/22/17 19:00 06/27/17 18:59 Ondansetron HCl (Zofran) 4 mg Q6H PRN IVP Nausea & Vomiting 06/22/17 19:00 07/20/17 18:59 Phosphorus (Phospha 250 Neutral) 500 mg TID GT 06/23/17 09:00 07/20/17 17:59 06/24/17 12:37 Polyethylene Glycol (Miralax) 17 gm DAILYPRN PRN ORAL Constipation 06/22/17 19:00 07/22/17 18:59 Promethazine HCl/ Codeine (Phenergan with Codeine) 5 ml Q4H PRN ORAL For Cough 06/22/17 19:00 07/20/17 18:59 Vancomycin HCl (Vanco rx to dose) 1 ea DAILYPRN PRN MISC Per rx protocol 06/22/17 19:00 07/22/17 18:59 Vancomycin HCl/ Dextrose 250 ml @ 166.667 mls/hr Q12HR IVPB 06/22/17 22:00 06/27/17 21:59 06/24/17 09:22 Lindsay Salter MD Jun 24, 2017 15:46
[2017-06-24 16:00] VITALS: BP 118/73
[2017-06-24] MEDS ORDERED: VANCOMYCIN1 GM/2502 IVPB (16:16)
[2017-06-24] MEDS ORDERED: MAXIPIME2 G1 IV (16:17)
--- NOTE | 2017-06-24 21:33 | Cardiology Progress Note ---
Assessment/Plan Assessment/Plan 1. Sinus tachycardia, resolved, likely due to hypovolemia given evidence of free water deficit. There is no need for AV lico agents at this point. 2. History of cerebrovascular accident with aphasia, recommend aspirin and statin. 3. History of diabetes mellitus, continue ASA and atorvastatin. 4. History of hypertension, on diet only. 5. Dyslipidemia, essentially low HDL on atorvastatin. Subjective Subjective Non-verbal. No cardiac events reported. Objective Last 24 Hour Vital Signs Date Time Temp Pulse Resp B/P (MAP) Pulse Ox O2 Delivery O2 Flow Rate FiO2 06/24/17 16:00 98.3 97 20 118/73 95 Nasal Cannula 2.0 98.3 06/24/17 12:00 98.0 98 20 114/73 93 Nasal Cannula 2.0 98.0 06/24/17 08:00 98.8 101 22 111/75 92 Nasal Cannula 2.0 98.8 06/24/17 07:22 92 20 Room Air 21 06/24/17 04:00 99.3 80 20 118/59 93 99.3 06/24/17 00:00 99.3 94 18 118/70 93 99.3 Intake and Output 06/23/17 06/24/17 19:00 07:00 Intake Total 1560 ml 1300.000 ml Output Total 650 ml Balance 910 ml 1300.000 ml Free Water 750 ml 500 ml IV Total 450 ml 470.000 ml Tube Feeding 360 ml 330 ml Output Urine Total 650 ml # Voids 5 # Bowel Movements 1 Laboratory Tests Test 06/24/17 08:50 White Blood Count 8.6 K/UL (4.8-10.8) Red Blood Count 4.08 M/UL (4.70-6.10) L Hemoglobin 13.3 G/DL (14.2-18.0) L Hematocrit 36.8 % (42.0-52.0) L Mean Corpuscular Volume 90 FL (80-99) Mean Corpuscular Hemoglobin 32.5 PG (27.0-31.0) H Mean Corpuscular Hemoglobin Concent 36.1 G/DL (32.0-36.0) H Red Cell Distribution Width 11.8 % (11.6-14.8) Platelet Count 144 K/UL (150-450) L Mean Platelet Volume 13.5 FL (6.5-10.1) H Neutrophils (%) (Auto) 70.7 % (45.0-75.0) Lymphocytes (%) (Auto) 19.6 % (20.0-45.0) L Monocytes (%) (Auto) 7.2 % (1.0-10.0) Eosinophils (%) (Auto) 2.0 % (0.0-3.0) Basophils (%) (Auto) 0.6 % (0.0-2.0) Sodium Level 141 MMOL/L (136-145) Potassium Level 3.6 MMOL/L (3.5-5.1) Chloride Level 107 MMOL/L (98-107) Carbon Dioxide Level 27 MMOL/L (21-32) Anion Gap 7 mmol/L (5-15) Blood Urea Nitrogen 12 mg/dL (7-18) Creatinine 0.8 MG/DL (0.55-1.30) Estimat Glomerular Filtration Rate > 60 mL/min (>60) Glucose Level 310 MG/DL (74-106) H Calcium Level 8.5 MG/DL (8.5-10.1) Objective HEENT: Atraumatic and normocephalic. ENT, pupils are equal, round, and reactive to light and accommodation. Extraocular muscles are intact. NECK: JVP less than 5 cm. No carotid bruits. Carotid upstrokes 2+ bilaterally. CARDIOVASCULAR: Normal S1 and S2. Regular rate and rhythm. No murmurs, gallops , or rubs. LUNGS: Clear to auscultation bilaterally. ABDOMEN: Soft, nontender, and nondistended. No hepatosplenomegaly. Positive bowel sounds. Positive G-tube in place. EXTREMITIES: No evidence of edema, clubbing, or cyanosis. RENEE WASHINGTON Jun 24, 2017 21:33
--- NOTE | 2017-06-26 11:52 | Discharge Summary ---
Discharge Summary Discharge Summary Discharge Summary DATE OF ADMISSION: 06/20/2017 DATE OF DISCHARGE: 06/24/2017 CONSULTANTS: Dr. Lindsay Storey PsyD BRIEF HOSPITAL COURSE: Patient is a 67-year-old male from [facility] presented to ED complaining of increased shortness of breath and confusion. [facility]. He has medical history of dementia GERD, CVA/TIA, hypertension, diabetes, dysphagia on G-tube, weakness and aphasia. On arrival to ED, he was febrile temperature of 101. Blood work showed marked leukocytosis, WBC of 22, lactate 2, sodium 159, chloride 125. He had elevated creatinine and BUN. Troponin was negative. EKG was in sinus tachycardia, chest x-ray showed patchy consolidation on the left lobe. He was admitted for sepsis, pneumonia and hypernatremia. Tachycardia improved with IV fluids, he was pancultured and was started empirically on Zosyn and azithromycin. Influenza screen was negative he was followed by infectious disease specialist, he was given vancomycin and cefepime pending culture results. Cardiac evaluation was done. Sinus tachycardia was secondary to hypovolemia as evidenced by hypernatremia and prerenal azotemia. He was given IV hydration with half-normal saline. There was no need for AV lico agents. Patient has history of diabetes mellitus which could cause osmotic diureses. Blood sugars were monitored and was given insulin sliding scale. He was placed on aspirin and statin. He had electrolyte imbalance including hypernatremia, hypokalemia and acute renal failure. He was given potassium supplements. He was given respiratory treatment, heat and placed on aspiration precaution for possible aspiration pneumonia. Blood culture did not isolate any growth. He had history of dementia and mood lability, his cognition has declined below baseline secondary to stress of his present illness. Psychiatric evaluation was done. He was diagnosed with major depressive disorder, mild, recurrent, with psychotic features. He was given Aricept, Namenda and Ativan when necessary. He was given supportive therapy. He had candidiasis on bilateral groin and was given Lotrimin. Cultures were negative. He was eventually cleared for [facility] back [facility] to continue 2 more days of IV antibiotic. 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 Dyslipidemia DISPOSITION: Patient was transferred back to [facility] DISCHARGE MEDICATIONS: Refer to Discharge Medication List. I have been assigned to dictate discharge summary on this account, and I was not involved in the patient's management. Little Petit NP Jun 26, 2017 11:52
== END 2017-06-24 17:39 | DRG 871 ==
LOC: EDBD 09:19 → EMR 09:47 → EDBEDREQ 10:25 → UNDOADMIN 10:45 → 2E 10:45 → 4E 10:45 → EDBEDREQ 10:58 → 4E 06-22 19:12
DX: A41.9 Sepsis, unspecified organism (principal); J69.0 Pneumonitis due to inhalation of food and vomit; N39.0 Urinary tract infection, site not specified; E87.0 Hyperosmolality and hypernatremia; N17.9 Acute kidney failure, unspecified; B37.89 Other sites of candidiasis; L03.311 Cellulitis of abdominal wall; F32.3 Major depressive disorder, single episode, severe with psychotic features; E11.9 Type 2 diabetes mellitus without complications; E86.0 Dehydration; E87.6 Hypokalemia; F03.90 Unspecified dementia, unspecified severity, without behavioral disturbance, psychotic disturbance, mood disturbance, and anxiety; E88.09 Other disorders of plasma-protein metabolism, not elsewhere classified; K21.9 Gastro-esophageal reflux disease without esophagitis; R00.0 Tachycardia, unspecified; I69.320 Aphasia following cerebral infarction; I10 Essential (primary) hypertension; E86.1 Hypovolemia; E78.5 Hyperlipidemia, unspecified; E83.51 Hypocalcemia
CPT/HCPCS: 36415; 71045; 80048; 80053; 80061; 80069; 80202; 81003; 82043; 82044; 82306; 82550; 82553; 82570; 82962; 83605; 83735; 83880; 84300; 84484; 85007; 85025; 86710; 87040; 87081; 89050; 93005; 94664; 97803; 99285; C9399; J1815; J8499

== ENCOUNTER 2018-04-20 07:06 | Inpatient (IN) | payer MEDICARE, MEDICAID ==
[~2018-04-20] VITALS: Ht 162.6 cm; Wt 61.7 kg
[2018-04-20] VITALS (14 sets, daily range): BP systolic 94–126; BP diastolic 56–75
[~2018-04-20 07:06] MED LIST changes: +ARICEPT10 MG ORAL; +ASPIR 8181 MG ORAL; +MAGNESIUM OXID400 M1 ORAL; +MAXIPIME2 G1 IV; +MULTI VITAMIN1 EACH ORAL; +TYLENOL650 MG/20. GT; -TYLENOL650 MG/20. ORAL
[2018-04-20] MEDS ORDERED: Bacitracin Oint 15gm Tube TOPIC ONE (07:27)
[2018-04-20] MEDS ORDERED: fentaNYL 100 mcg/2 mL IV ONE (07:27)
[2018-04-20] MEDS ORDERED: Midazolam 2mg/2ml Inj ONE (07:27)
[2018-04-20] MEDS ORDERED: Heparin 1000 units/ml 1ml Vial ONE (07:28)
[2018-04-20] MEDS ORDERED: Lidocaine 1% Plain 30 ml INJ ONE (07:28)
[2018-04-20] MEDS ORDERED: Heparin 5000 units/ml inj ONE (07:28)
[2018-04-20] MEDS ORDERED: Iothalamate Meglumine 60% 30ML INJ ONE (07:28)
[2018-04-20] MEDS ORDERED: Bupivacaine 0.5% 10ml INJ ONE (07:28)
[2018-04-20] MEDS ORDERED: Bacitracin 50000 Units Vial ONE (07:29)
[2018-04-20] MEDS ORDERED: Propofol 200mg/20ml IV ONE ×2 (07:29→10:03)
[2018-04-20] MEDS ORDERED: Lidocaine 1% MPF 10mg/ml 5ml ONE (07:29)
[2018-04-20 08:31] LABS: HEMATOCRIT 19.6 % (42.0-52.0); MEAN CORPUSCULAR VOLUME 87 FL (80-99); PLATELET COUNT 326 K/UL (150-450); RED BLOOD COUNT 2.25 M/UL (4.70-6.10); RED CELL DISTRIBUTION WIDTH 15.1 % (11.6-14.8)
[2018-04-20 08:41] LABS: ANION GAP 16 mmol/L (5-15); BLOOD UREA NITROGEN 93 mg/dL (7-18); CALCIUM 9.5 MG/DL (8.5-10.1); CARBON DIOXIDE 22 MMOL/L (21-32); CHLORIDE 94 MMOL/L (98-107); CREATININE 5.6 MG/DL (0.55-1.30); INR 0.9 (0.9-1.1); POTASSIUM 3.1 MMOL/L (3.5-5.1); SODIUM 132 MMOL/L (136-145)
[2018-04-20] MEDS ORDERED: Sterile Water Irrig 1000ml IRRIG ONE (09:00)
--- NOTE | 2018-04-20 09:25 | Pre-Procedure Note/Attestation ---
Pre-Procedure Note/Attestation Complete Prior to Procedure Planned Procedure: left Procedure Narrative: Dialysis shunt placement; possible replacement of dialysis catheter Indications for Procedure Pre-Operative Diagnosis: ESRD Attestation I attest that I discussed the nature of the procedure; its benefits; risks and complications; and alternatives (and the risks and benefits of such alternatives ), prior to the procedure, with the patient (or the patient's legal consumer sales representative). I attest that, if there was a reasonable possibility of needing a blood transfusion, the patient (or the patient's legal consumer sales representative) was given the [facility] standardized written summary, pursuant to the Robert Sid Blood Safety Act ([place] Health and Safety Code # 1645, as amended). I attest that I re-evaluated the patient just prior to the surgery and that there has been no change in the patient's H&P, except as documented below: Shine Good MD Apr 20, 2018 09:25
[2018-04-20] MEDS ORDERED: FAMOTIDINE20 MG GT (09:52)
[2018-04-20] MEDS ORDERED: ATORVASTATIN CA40 MG GT (09:52)
[2018-04-20] MEDS ORDERED: fentaNYL 100 mcg/2 mL IV PRN (10:30)
[2018-04-20] MEDS ORDERED: DiphenhydrAMINE 50mg/ml Inj IVP PRN (10:30)
--- NOTE | 2018-04-20 10:30 | Anethesia Preoperative Eval ---
Anesthesia Pre-op PMH/ROS General Date of Evaluation: Apr 20, 2018 Time of Evaluation: 09:15 Anesthesiologist: Maribel ASA Score: ASA 4 Mallampati Score Class I : Soft palate, uvula, fauces, pillars visible Class II: Soft palate, uvula, fauces visible Class III: Soft palate, base of uvula visible Class IV: Only hard plate visible Mallampati Classification: Class II Surgeon: Florentino Diagnosis: End stage renal disease Surgical Procedure: Left UE A-V fistula Allergies: Coded Allergies: No Known Allergies (Unverified , 04/14/16) Medications: see eMAR Patient NPO?: Yes NPO Date: Apr 19, 2018 NPO Time: 17:00 Past Medical History Cardiovascular: Reports: HTN; Denies: CAD, [place], valve dz, arrhythmia, other Pulmonary: Reports: other - Oxygen dependent; Denies: asthma, COPD, DENNIS Gastrointestinal/Genitourinary: Reports: GERD, ESRD; Denies: CRI, other Neurologic/Psychiatric: Reports: dementia, CVA; Denies: depression/anxiety, TIA, other Endocrine: Reports: DM; Denies: hypothyroidism, steroids, other HEENT: Denies: cataract (L), cataract (R), glaucoma, BARROW (L), BARROW (R), other Hematology/Immune: Reports: anemia; Denies: DVT, bleeding disorder, other Musculoskeletal/Integumentary: Denies: OA, RA, DJD, DDD, edema, other PMH Narrative: ESRD, DM, HTN, anemia, GERD, CVA, dementia PSxH Narrative: Trach Anesthesia Pre-op Phys. Exam Physician Exam Last Vital Signs Date Time Temp Pulse Resp B/P (MAP) Pulse Ox O2 Delivery O2 Flow Rate FiO2 04/20/18 08:30 98.9 74 20 116/61 100 Trach Collar 4 Constitutional: NAD, other - Melena noted by nursing staff Neurologic: other - S/P CVA. Unable to communicate Cardiovascular: no M/R/G Respiratory: CTA Gastrointestinal: S/NT/ND Airway Exam Mallampati Score: Class II MO: full ROM: full Anesthesia Pre-op A/P Labs Hematology Test 04/20/18 08:20 White Blood Count 22.0 K/UL (4.8-10.8) H Red Blood Count 2.25 M/UL (4.70-6.10) L Hemoglobin 7.0 G/DL (14.2-18.0) L Hematocrit 19.6 % (42.0-52.0) L Mean Corpuscular Volume 87 FL (80-99) Mean Corpuscular Hemoglobin 31.0 PG (27.0-31.0) Mean Corpuscular Hemoglobin Concent 35.5 G/DL (32.0-36.0) Red Cell Distribution Width 15.1 % (11.6-14.8) H Platelet Count 326 K/UL (150-450) Mean Platelet Volume 6.6 FL (6.5-10.1) Neutrophils (%) (Auto) % (45.0-75.0) Lymphocytes (%) (Auto) % (20.0-45.0) Monocytes (%) (Auto) % (1.0-10.0) Eosinophils (%) (Auto) % (0.0-3.0) Basophils (%) (Auto) % (0.0-2.0) Differential Total Cells Counted 100 Neutrophils % (Manual) 74 % (45-75) Lymphocytes % (Manual) 20 % (20-45) Monocytes % (Manual) 4 % (1-10) Eosinophils % (Manual) 2 % (0-3) Basophils % (Manual) 0 % (0-2) Band Neutrophils 0 % (0-8) Platelet Estimate Adequate Platelet Morphology Normal Hypochromasia 3+ Anisocytosis 1+ Spherocytes 2+ Coagulation Test 04/20/18 08:20 Prothrombin Time 10.0 SEC (9.30-11.50) Prothromb Time International Ratio 0.9 (0.9-1.1) Activated Partial Thromboplast Time 27 SEC (23-33) Chemistry Test 04/20/18 08:20 Sodium Level 132 MMOL/L (136-145) L Potassium Level 3.1 MMOL/L (3.5-5.1) L Chloride Level 94 MMOL/L (98-107) L Carbon Dioxide Level 22 MMOL/L (21-32) Anion Gap 16 mmol/L (5-15) H Blood Urea Nitrogen 93 mg/dL (7-18) H Creatinine 5.6 MG/DL (0.55-1.30) H Estimat Glomerular Filtration Rate 10.2 mL/min (>60) Glucose Level 126 MG/DL (74-106) H Calcium Level 9.5 MG/DL (8.5-10.1) Studies Pre-op Studies: EKG - SR, No acute changes Risk Assessment & Plan Assessment: Oxygen dependent (s/p trach) here for A-V fistula for dialysis access Plan: MAC, TIVA, PRBC transfusion for Hgb = 7.0 and with melena at bedside Status Change Before Surgery: No Pre-Antibiotics Drug: Ancef Given Within 1 Hr of Incision: Yes Time Given: 10:00 Robert López MD Apr 20, 2018 10:30
--- NOTE | 2018-04-20 10:31 | Immediate Post-Op Evaluation ---
Immediate Post-Op Evalulation Immediate Post-Op Evalulation Procedure: Left UE A-V fistula Date of Evaluation: Apr 20, 2018 Time of Evaluation: 12:05 IV Fluids: 400 Blood Products: 125 Estimated Blood Loss: 30 Blood Pressure Systolic: 125 Blood Pressure Diastolic: 75 Pulse Rate: 80 Respiratory Rate: 28 O2 Sat by Pulse Oximetry: 100 Pain Score (1-10): 0 Nausea: No Vomiting: No Complications No complication Patient Status: reacts, patent, none Hydration Status: adequate Drug: Ancef Given Within 1 Hr of Incision: Yes Time Given: 10:00 Robert López MD Apr 20, 2018 10:31
[2018-04-20] MEDS ORDERED: HUMALOG100 UNIT/4 SUBQ (11:49)
[2018-04-20] MEDS ORDERED: MIDODRINE HCL10 MG GT (11:54)
[2018-04-20] MEDS ORDERED: SYNTHROID25 MCG GT (11:54)
[2018-04-20] MEDS ORDERED: RENVELA0.8 GM GT (11:54)
[2018-04-20] MEDS ORDERED: ZINC SULFATE220 M2 GT (11:54)
[2018-04-20] MEDS ORDERED: METOCLOPRAMIDE H5 M1 GT (11:54)
[2018-04-20] MEDS ORDERED: NEPHROVITE1 TAB GT (11:54)
--- NOTE | 2018-04-20 12:30 | NUR ---
AV SHUNT ON LEFT ARM DRESSING DRY AND INTACT NO BLEEDING NO HEMATOMA NOTED . CHECKED WITH DOPPLER WITH [employer] . MONITORED CLOSELY .
--- NOTE | 2018-04-20 13:40 | Brief Operative Note ---
Immediate Post Operative Note Operative Note Pre-op Diagnosis: ESRD Procedure: left arm AVF creation Post-op Diagnosis: same as pre-op Findings: consistent w/pre-op dx studies Surgeon: Lázaro Good Collar Tailor: none Anesthesiologist: Kyaw López Anesthesia: general Specimen: none Complications: none Condition: stable Fluids: see anesth. record Estimated Blood Loss: minimal Drains: none Implant(s) used?: No Shine Good MD Apr 20, 2018 13:40
--- NOTE | 2018-04-20 14:00 | NUR ---
BLOOD TRANSFUSION COMPLETED NO REACTION NOTED V/S STABLE . DR GUADARRAMA CALLED FOR FURTHER ORDERS WILL SEE PATIENT IN ROOM AND WRITE ORDERS AFTER
--- NOTE | 2018-04-20 14:30 | NUR ---
OPENS EYES TO DEEP STIMULI NOT FOLLOWING COMMANDS G TUBE IN PLACE DRESSING DRY AND INTACT . LEFT ARM AV SHUNT DERMABOND DRESSING D/I NO HEMATOMA NOTED AND WITH [facility] CATH TO RT CHEST DRESSING DRY AND INTACT . TURNED PT TO SIDE NO OPEN DECUBITUS NOTED . BEDSIDE ENDORSEMENT GIVEN TO JAY JAY BOGGS
--- NOTE | 2018-04-20 14:50 | History and Physical ---
History of Present Illness General Date patient seen: Apr 20, 2018 Present Illness HPI 67 y/o male with advanced dementia, chronic respiratory failure s/p trach, admitted after had new left UE fistula creation. Pt. has ESRD on hd via right upper chest catheter. On admission he has low hgb and leukocytosis. Pt. has been residing in sn[facility], has h.o anemia secondary to renal disease, has been on tube feeds after sustained acute cva. Currently pt confused, awake, no specific c/o Allergies: Coded Allergies: No Known Allergies (Unverified , 04/14/16) Medication History Scheduled Aspirin* (Aspirin*), 81 MG GT DAILY, (Reported) Atorvastatin Calcium* (Atorvastatin Calcium*), 40 MG GT BEDTIME, (Reported) Famotidine (Famotidine), 20 MG GT DAILY, (Reported) Insulin Lispro (Humalog), Unknown Dose SUBQ Q6HR, (Reported) Levothyroxine Sodium* (Synthroid*), 50 MCG GT DAILY, (Reported) Metoclopramide Hcl* (Metoclopramide Hcl*), 10 MG GT NEEDED, (Reported) Midodrine* (Proamatine*), 10 MG GT THREE TIMES A DAY, (Reported) Sevelamer Carbonate* (Renvela*), 1,600 MG GT THREE TIMES A DAY, (Reported) Vitamin B Cmplx/Vit C/Folic AC (Nephro-Micah Tablet), 1 TAB GT DAILY, (Reported) Zinc Sulfate (Zinc Sulfate), 220 MG GT DAILY, (Reported) Scheduled PRN Acetaminophen (Acetaminophen), 650 MG GT Q6HR PRN for Mild Pain (Pain Scale 1-3) , (Reported) Insulin Regular, Human (Humulin R), 20 UNITS SUBQ Q12HR PRN for Sliding Scale, ( Reported) Discontinued Medications Cefepime Hcl (Maxipime), 2 GM IV Q12HR, (Reported) Discontinued Reason: Pt stopped taking med Cefepime Hcl/Dextrose, Iso-Osm (Cefepime 1 Gm Injection), 1 GM IV EVERY 12 HOURS , (Reported) Discontinued Reason: Pt stopped taking med Donepezil Hcl* (Aricept*), 10 MG GT DAILY, (Reported) Discontinued Reason: Pt stopped taking med Donepezil Hcl* (Aricept*), 10 MG ORAL DAILY, (Reported) Discontinued Reason: Pt stopped taking med Insulin Detemir (Levemir), 40 UNITS SUBQ EVERY 12 HOURS, (Reported) Discontinued Reason: Pt stopped taking med Insulin Detemir (Levemir), 0 SUBQ BID, (Reported) Discontinued Reason: Pt stopped taking med Magnesium Oxide (Magnesium Oxide), 400 MG GT DAILY, (Reported) Discontinued Reason: MD discontinued med Magnesium Oxide (Magnesium Oxide), 400 MG ORAL DAILY, (Reported) Discontinued Reason: Pt stopped taking med Multivitamin (Multi Vitamin Daily), 1 TAB ORAL DAILY, (Reported) Discontinued Reason: Pt stopped taking med Multivitamins* (Multivitamins*), 1 TAB GT DAILY, (Reported) Discontinued Reason: Pt stopped taking med Nitroglycerin (Nitroglycerin), 0.4 MG SL every 5 mins, (Reported) Discontinued Reason: Pt stopped taking med Phosphorus (Phospha 250 Neutral Tablet), 500 MG GT TID, (Reported) Discontinued Reason: Pt stopped taking med Vancomycin Hcl/D5w (Vancomycin-D5w 1 G/250 Ml), 1.25 GM IVPB Q12HR, (Reported) Discontinued Reason: Pt stopped taking med Patient History Healthcare decision maker Resuscitation status Advanced Directive on File Past Medical/Surgical History Past Medical/Surgical History: (1) Hyperglycemia (2) Sepsis (3) Fever (4) Diabetes (5) Renal insufficiency (6) G-tube site cellulitis (7) History of CVA (cerebrovascular accident) (8) Aspiration pneumonia (9) sn[facility] resident Review of Systems Constitutional: Reports: malaise ENT: Denies: no symptoms, see HPI, ear pain, ear discharge, nose pain, nose congestion, throat pain, throat swelling, mouth pain, hearing loss, nasal discharge, other Respiratory: Reports: orthopnea, shortness of breath Cardiovascular: Reports: edema, PND Musculoskeletal: Reports: muscle stiffness Physical Exam General Appearance: confused, mild distress Neck: supple, trach Respiratory/Chest: decreased breath sounds, accessory muscle use, rhonchi - bilaterally Abdomen: normal bowel sounds, feeding tube Extremities: non-tender Skin Exam: warm/dry Neurologic: no Babinski, motor weakness, disoriented Last 24 Hour Vital Signs Date Time Temp Pulse Resp B/P (MAP) Pulse Ox O2 Delivery O2 Flow Rate FiO2 04/20/18 14:00 98.0 75 18 99/61 100 Trach Collar 10 35 04/20/18 13:45 75 16 106/61 100 Trach Collar 10 35 04/20/18 13:30 81 20 99/63 100 Trach Collar 10 35 04/20/18 13:15 79 19 94/57 100 Trach Collar 10 35 04/20/18 13:00 80 18 99/59 100 Trach Collar 10 35 04/20/18 12:45 78 19 103/59 100 Trach Collar 10 35 04/20/18 12:30 78 19 96/62 100 Trach Collar 10 35 04/20/18 12:15 79 18 106/56 100 Trach Collar 10 35 04/20/18 12:05 78 18 108/65 100 Trach Collar 10 35 04/20/18 12:01 80 28 100 04/20/18 12:00 76 19 113/69 100 Trach Collar 10 35 04/20/18 11:55 97.3 78 18 126/75 100 Trach Collar 10 35 04/20/18 08:30 Trach Collar 4 04/20/18 08:30 98.9 74 20 116/61 100 Trach Collar 4 Laboratory Tests Test 04/20/18 08:20 White Blood Count 22.0 K/UL (4.8-10.8) H Red Blood Count 2.25 M/UL (4.70-6.10) L Hemoglobin 7.0 G/DL (14.2-18.0) L Hematocrit 19.6 % (42.0-52.0) L Mean Corpuscular Volume 87 FL (80-99) Mean Corpuscular Hemoglobin 31.0 PG (27.0-31.0) Mean Corpuscular Hemoglobin Concent 35.5 G/DL (32.0-36.0) Red Cell Distribution Width 15.1 % (11.6-14.8) H Platelet Count 326 K/UL (150-450) Mean Platelet Volume 6.6 FL (6.5-10.1) Neutrophils (%) (Auto) % (45.0-75.0) Lymphocytes (%) (Auto) % (20.0-45.0) Monocytes (%) (Auto) % (1.0-10.0) Eosinophils (%) (Auto) % (0.0-3.0) Basophils (%) (Auto) % (0.0-2.0) Differential Total Cells Counted 100 Neutrophils % (Manual) 74 % (45-75) Lymphocytes % (Manual) 20 % (20-45) Monocytes % (Manual) 4 % (1-10) Eosinophils % (Manual) 2 % (0-3) Basophils % (Manual) 0 % (0-2) Band Neutrophils 0 % (0-8) Platelet Estimate Adequate Platelet Morphology Normal Hypochromasia 3+ Anisocytosis 1+ Spherocytes 2+ Prothrombin Time 10.0 SEC (9.30-11.50) Prothromb Time International Ratio 0.9 (0.9-1.1) Activated Partial Thromboplast Time 27 SEC (23-33) Sodium Level 132 MMOL/L (136-145) L Potassium Level 3.1 MMOL/L (3.5-5.1) L Chloride Level 94 MMOL/L (98-107) L Carbon Dioxide Level 22 MMOL/L (21-32) Anion Gap 16 mmol/L (5-15) H Blood Urea Nitrogen 93 mg/dL (7-18) H Creatinine 5.6 MG/DL (0.55-1.30) H Estimat Glomerular Filtration Rate 10.2 mL/min (>60) Glucose Level 126 MG/DL (74-106) H Calcium Level 9.5 MG/DL (8.5-10.1) Height (Feet): 5 Height (Inches): 5.00 Weight (Pounds): 150 Medications Current Medications Medications (Trade) Dose Ordered Sig/Xochilt Route PRN Reason Start Time Stop Time Status Last Admin Dose Admin Diphenhydramine HCl (Benadryl) 25 mg Q15M PRN IVP Itching 04/20/18 10:30 04/20/18 18:00 Fentanyl Citrate (Sublimaze 100 mcg/2 mL) 25 mcg Q10M PRN IV Moderate Pain (Pain Scale 4-6) 04/20/18 10:30 04/20/18 18:00 Ondansetron HCl (Zofran) 4 mg Q1H PRN IVP Nausea & Vomiting 04/20/18 10:30 04/20/18 18:00 Assessment/Plan Problem List: (1) Heel sore Assessment & Plan: -will asses with wound care, cont nutrition and off loading ICD Codes: L98.9 - Disorder of the skin and subcutaneous tissue, unspecified SNOMED: 84434970, 112137753 (2) Encephalopathy ICD Codes: G93.40 - Encephalopathy, unspecified SNOMED: 70550343 (3) Anemia Assessment & Plan: -pt had bloody stool -transfuse 2 units -get GI eval -PPI -epogen with HD ICD Codes: D64.9 - Anemia, unspecified SNOMED: 993901279 Qualifiers: (4) Dysphagia as late effect of cerebrovascular accident (CVA) Assessment & Plan: -On tube feeds ICD Codes: I69.391 - Dysphagia following cerebral infarction SNOMED: 514888908 (5) Diabetes Assessment & Plan: -Follow blood sugars with sliding scale ICD Codes: E11.9 - Type 2 diabetes mellitus without complications SNOMED: 36129419 (6) History of CVA (cerebrovascular accident) ICD Codes: Z86.73 - Personal history of transient ischemic attack (TIA), and cerebral infarction without residual deficits SNOMED: 864603509 (7) Sepsis Assessment & Plan: -ID eval requested, will need abx therapy -scott culture ICD Codes: A41.9 - Sepsis, unspecified organism SNOMED: 33522038 Status: not improved Demarco Griffin M.D. Apr 20, 2018 14:50
[2018-04-20] MEDS ORDERED: Acetaminophen 650mg/20.3ml GT PRN (15:00)
[2018-04-20] MEDS ORDERED: Insulin Human Regular 100units/ml 3ml SUBQ PRN (15:00)
--- NOTE | 2018-04-20 16:00 | NUR ---
NURSE NOTES: received pt from recovery room, sp AV shunt placement on left arm, awake, portex 8, trach, no co pain, no SOB, skin warm and dry to touch, stage 2 on sacral and RT heel, picture taken, dressing changed, GT clump, called for HD 04/21/2018, dr. GUADARRAMA SAW PT, continue monitoring.
--- NOTE | 2018-04-20 16:10 | GI Initial Consult Note ---
History of Present Illness General Date patient seen: Apr 20, 2018 Time patient seen: 16:05 Referring physician: DAMION Reason for Consultation: Anemia Present Illness HPI 67 y/o male with advanced dementia, chronic respiratory failure s/p trach, admitted after had new left UE fistula creation. Pt. has ESRD on hd via right upper chest catheter. On admission he has low hgb and leukocytosis. Pt. has been residing in snf, has h.o anemia secondary to renal disease, has been on tube feeds after sustained acute cva. Currently pt confused, awake, no specific c/o GI consulted for anemia secondary to possible GI bleed. ROS limited, patient nonverbal at baseline. Patient seen awake alert no apparent distress; tracheostomy and G-tube dependent. Labs reviewed; patient presents with severe anemia with a hemoglobin of 7.0, leukocytosis with a white count of 22, hyponatremia, hypokalemia. Noted history of end-stage renal disease. Unknown history of endoscopic or colonoscopy at this time. Home Meds Reported Medications Zinc Sulfate (ZINC SULFATE) 220 Mg Tablet, 220 MG GT DAILY, #30 TAB 0 Refills 04/20/18 Sevelamer Carbonate* (RENVELA*) 0.8 Gm Powd.pack, 1600 MG GT THREE TIMES A DAY, PACK 04/20/18 Vitamin B Cmplx/Vit C/Folic AC (Nephro-Micah Tablet) 0.8 Mg Tablet, 1 TAB GT DAILY, #30 TAB 0 Refills 04/20/18 Midodrine* (PROAMATINE*) 10 Mg Tablet, 10 MG GT THREE TIMES A DAY, TAB 04/20/18 Metoclopramide Hcl* (METOCLOPRAMIDE HCL*) 5 Mg Tablet, 10 MG GT NEEDED, TAB 04/20/18 Levothyroxine Sodium* (SYNTHROID*) 25 Mcg Tablet, 50 MCG GT DAILY, TAB Take in the morning on an empty stomach, at least 30 minutes before food. 04/20/18 Insulin Lispro (HUMALOG) 100 Unit/1 Ml Cartridge, SUBQ Q6HR, #1 UNITS 0 Refills 04/20/18 Famotidine (FAMOTIDINE) 20 Mg Tablet, 20 MG GT DAILY, #30 TAB 0 Refills 04/20/18 Atorvastatin Calcium* (ATORVASTATIN CALCIUM*) 40 Mg Tablet, 40 MG GT BEDTIME, TAB 2/4/19 Insulin Regular, Human (HUMULIN R) 100 Unit/1 Ml Vial, 20 UNITS SUBQ Q12HR PRN for Sliding Scale, VIAL 08/10/16 Acetaminophen (Acetaminophen) 650 Mg/20.3 Ml Solution, 650 MG GT Q6HR PRN for Mild Pain (Pain Scale 1-3), ML 0 Refills 04/29/16 Aspirin* (ASPIRIN*) 81 Mg Tab.chew, 81 MG GT DAILY, TAB 04/14/16 Discontinued Reported Medications Cefepime Hcl (MAXIPIME) 2 Gm Vial.port, 2 GM IV Q12HR for 2 Days, VIAL 06/24/17 Vancomycin Hcl/D5w (VANCOMYCIN-D5W 1 G/250 ML) 1 Gm/250 Ml Plast..bag, 1.25 GM IVPB Q12HR for 2 Days, BAG 06/24/17 Insulin Detemir (LEVEMIR) 100 Unit/1 Ml Vial, 0 SUBQ BID, VIAL 06/20/17 Multivitamin (MULTI VITAMIN DAILY) 1 Each Tablet, 1 TAB ORAL DAILY, #30 TAB 0 Refills 06/20/17 Magnesium Oxide (MAGNESIUM OXIDE) 400 Mg Tablet, 400 MG ORAL DAILY, #30 TAB 0 Refills 06/20/17 Donepezil Hcl* (ARICEPT*) 10 Mg Tablet, 10 MG ORAL DAILY, TAB 06/20/17 Cefepime Hcl/Dextrose, Iso-Osm (CEFEPIME 1 GM INJECTION) 1 Gm/50 Ml Froz.piggy, 1 GM IV EVERY 12 HOURS for 7 Days, BAG 08/12/16 Phosphorus (Phospha 250 Neutral Tablet) 250 Mg Tablet, 500 MG GT TID, TAB 04/29/16 Nitroglycerin (NITROGLYCERIN) 0.4 Mg Tab.subl, 0.4 MG SL every 5 mins, TAB 04/29/16 Insulin Detemir (LEVEMIR) 100 Unit/1 Ml Vial, 40 UNITS SUBQ EVERY 12 HOURS, VIAL 04/29/16 Multivitamins* (MULTIVITAMINS*) 1 Each Tablet, 1 TAB GT DAILY, TAB 0 Refills 04/14/16 Magnesium Oxide (MAGNESIUM OXIDE) 400 Mg Tablet, 400 MG GT DAILY, #30 TAB 0 Refills 04/14/16 Donepezil Hcl* (ARICEPT*) 10 Mg Tablet, 10 MG GT DAILY, TAB 04/14/16 Med list reviewed/reconciled: Yes Allergies: Coded Allergies: No Known Allergies (Unverified , 04/14/16) Patient History Limited by: medical condition History Provided By: Medical Record [facility] Narrative (1) Hyperglycemia (2) Sepsis (3) Fever (4) Diabetes (5) Renal insufficiency (6) G-tube site cellulitis (7) History of CVA (cerebrovascular accident) (8) Aspiration pneumonia (9) [facility] resident Review of Systems Skin: Reports: see HPI All Other Systems: limited Physical Exam Vital Signs Date Time Temp Pulse Resp B/P (MAP) Pulse Ox O2 Delivery O2 Flow Rate FiO2 04/20/18 08:30 98.9 74 20 116/61 100 Trach Collar 4 04/20/18 11:55 35 Sp02 EP Interpretation: reviewed, normal Labs Laboratory Tests Test 04/20/18 08:20 White Blood Count 22.0 K/UL (4.8-10.8) H Red Blood Count 2.25 M/UL (4.70-6.10) L Hemoglobin 7.0 G/DL (14.2-18.0) L Hematocrit 19.6 % (42.0-52.0) L Mean Corpuscular Volume 87 FL (80-99) Mean Corpuscular Hemoglobin 31.0 PG (27.0-31.0) Mean Corpuscular Hemoglobin Concent 35.5 G/DL (32.0-36.0) Red Cell Distribution Width 15.1 % (11.6-14.8) H Platelet Count 326 K/UL (150-450) Mean Platelet Volume 6.6 FL (6.5-10.1) Neutrophils (%) (Auto) % (45.0-75.0) Lymphocytes (%) (Auto) % (20.0-45.0) Monocytes (%) (Auto) % (1.0-10.0) Eosinophils (%) (Auto) % (0.0-3.0) Basophils (%) (Auto) % (0.0-2.0) Differential Total Cells Counted 100 Neutrophils % (Manual) 74 % (45-75) Lymphocytes % (Manual) 20 % (20-45) Monocytes % (Manual) 4 % (1-10) Eosinophils % (Manual) 2 % (0-3) Basophils % (Manual) 0 % (0-2) Band Neutrophils 0 % (0-8) Platelet Estimate Adequate Platelet Morphology Normal Hypochromasia 3+ Anisocytosis 1+ Spherocytes 2+ Prothrombin Time 10.0 SEC (9.30-11.50) Prothromb Time International Ratio 0.9 (0.9-1.1) Activated Partial Thromboplast Time 27 SEC (23-33) Sodium Level 132 MMOL/L (136-145) L Potassium Level 3.1 MMOL/L (3.5-5.1) L Chloride Level 94 MMOL/L (98-107) L Carbon Dioxide Level 22 MMOL/L (21-32) Anion Gap 16 mmol/L (5-15) H Blood Urea Nitrogen 93 mg/dL (7-18) H Creatinine 5.6 MG/DL (0.55-1.30) H Estimat Glomerular Filtration Rate 10.2 mL/min (>60) Glucose Level 126 MG/DL (74-106) H Calcium Level 9.5 MG/DL (8.5-10.1) General Appearance: no apparent distress Head: normocephalic EENT: PERRL/EOMI, normal ENT inspection Neck: full range of motion, supple, tracheotomy Respiratory: normal breath sounds, no respiratory distress Cardiovascular: normal rate Gastrointestinal: normal inspection, non tender, soft, normal bowel sounds, non -distended, gt - Clean dry and intact Rectal: deferred Genitourinary: deferred Neurologic: alert Skin: normal inspection, normal color, no rash, warm/dry, palpation normal, well hydrated Lymphatic: normal inspection, no adenopathy Current Medications Current Medications Medications (Trade) Dose Ordered Sig/Xochilt Route PRN Reason Start Time Stop Time Status Last Admin Dose Admin Acetaminophen (Tylenol) 650 mg Q6H PRN GT Mild Pain (Pain Scale 1-3) 04/20/18 15:00 05/20/18 14:59 Aspirin (ASA) 81 mg DAILY GT 04/21/18 09:00 05/21/18 08:59 Atorvastatin Calcium (Lipitor) 40 mg BEDTIME GT 04/20/18 21:00 05/20/18 20:59 Dextrose (Dextrose 50%) 25 ml Q30M PRN IV Hypoglycemia 04/20/18 15:00 05/20/18 14:59 Dextrose (Dextrose 50%) 50 ml Q30M PRN IV Hypoglycemia 04/20/18 15:00 05/20/18 14:59 Famotidine (Pepcid) 20 mg DAILY GT 04/21/18 09:00 05/21/18 08:59 Famotidine (Pepcid) 20 mg ONCE GT 04/20/18 16:00 04/20/18 17:00 Insulin Aspart (NovoLOG) Q6HR SUBQ 04/20/18 18:00 05/20/18 17:59 Insulin Human Regular (NovoLIN R) 20 units Q12HR PRN SUBQ Sliding Scale 04/20/18 15:00 05/20/18 14:59 UNV Levothyroxine Sodium (Synthroid) 50 mcg DAILY GT 04/21/18 09:00 05/21/18 08:59 Metoclopramide HCl (Reglan) 10 mg NEEDED GT 04/20/18 15:00 05/20/18 14:59 UNV Midodrine (Pro-Amatine) 10 mg THREE TIMES A DAY GT 04/20/18 18:00 05/20/18 17:59 Sevelamer Carbonate (Renvela) 1,600 mg THREE TIMES A DAY GT 04/20/18 18:00 05/20/18 17:59 Vitamin B Complex/ Vit C/Folic Acid (Nephrovite) 1 tab DAILY GT 04/20/18 15:00 05/20/18 14:59 Zinc Sulfate (Zinc Sulfate) 220 mg DAILY GT 04/21/18 09:00 05/21/18 08:59 GI: Plan Problems: (1) Gastrostomy tube dependent (2) Electrolyte imbalance (3) Dehydration (4) GI bleed (5) G-tube site cellulitis (6) Dysphagia as late effect of cerebrovascular accident (CVA) Plan Maintain n.p.o. plus IV fluids at this time. IV hydration plus electrolyte correction 500 cc gastric lavage to rule out any upper GI bleeding anemia work up OB stool r/o GI bleed monitor H&H, prn transfusions bowel regime ppi fu labs We will consider GI procedures pending workup Discussed with Dr. Nixon. Thank you for this patient referral, we will follow. The patient was seen and examined at bedside and all new and available data was reviewed in the patients chart. I agree with the above findings, impression and plan. (Patient seen earlier today. Signature stamp does not reflect patient encounter time.). - MD Ashley ShahDuke [facility] Hospitaloi PROCESS CHECKER Apr 20, 2018 16:10
--- NOTE | 2018-04-20 16:32 | NUR ---
RESPIRATORY NOTE: pt from surgery and is trached with portex 8. no redness or skin tears around stoma or around neck area. no signs of resp distress. pt on Tpiece at 28% with humidity. will cont to monitor.
[2018-04-20] MEDS: NovoLOG Insulin Flexpen SUBQ SCH (18:00)
[2018-04-20] MEDS: Nephrovite tab (Rena-Vite) GT SCH (18:26)
[2018-04-20] MEDS: Midodrine 10mg tab GT SCH (18:27)
[2018-04-20] MEDS: Renvela 800mg Pkt GT SCH (18:27)
--- NOTE | 2018-04-20 19:25 | NUR ---
NURSE NOTES: Received bedside report from AMBROSE Smith.Patient stable,awake,nonverbal d/t artificial trach,SR on cardiac specialist,T-piece 28% 6 L Portex 8 tolerated well,new AV shunt on L arm placed,asymptomatic,intact,lungs diminished sound on auscultation,BS active in all quadrants,NPO until feeding confirm from [facility],IV on R hand G 22 HL asymptomatic,no s/s of pain,no respiratory distress noted,bed secured in a low safety position,call light within a reach.Will continue to monitor.
--- NOTE | 2018-04-20 19:40 | NUR ---
NURSE NOTES: Fax send it to admission to changed primary physician to Gaby.
--- NOTE | 2018-04-20 19:45 | NUR ---
NURSE NOTES: Called [facility] to confirm feeding.Pt has a Nepro 1.8 @ 55ml/hr flush 150 ml Q 8 hrs.Dialysis days T Sat.
--- NOTE | 2018-04-20 19:46 | NUR ---
NURSE NOTES: Called pt's son to det consent for Hemodialisys per adm protocol,consent signed over the phone with two nurses.
--- NOTE | 2018-04-20 19:55 | NUR ---
NURSE NOTES: pt had blood in the stool, dr. Griffin aware.
[2018-04-20] MEDS: Atorvastatin 20mg tab GT SCH (21:36)
--- NOTE | 2018-04-20 23:06 | Infectious Diseases Prog Note ---
Assessment/Plan Assessment/Plan Full consult to follow: A) 1) sepsis, leukocytosis, ? source 2) trach, no vent 3) esrd, hd 4) pmh noted P) 1) vancomycin, cefepime and flagyl 2) panculture, lab and chest x-ray 3) orders entered 4) thank you Subjective Allergies: Coded Allergies: No Known Allergies (Unverified , 04/14/16) Objective Vital Signs Last 24 Hour Vital Signs Date Time Temp Pulse Resp B/P (MAP) Pulse Ox O2 Delivery O2 Flow Rate FiO2 04/20/18 19:50 T-piece 6.0 28 04/20/18 19:50 100 T-piece 6.0 28 04/20/18 17:12 6.0 04/20/18 16:33 100 T-piece 6.0 28 04/20/18 16:33 T-piece 6.0 28 04/20/18 16:00 81 04/20/18 16:00 97.7 79 18 107/67 (80) 100 04/20/18 15:54 T-piece 8.0 04/20/18 14:00 98.0 75 18 99/61 100 Trach Collar 10 35 04/20/18 13:45 75 16 106/61 100 Trach Collar 10 35 04/20/18 13:30 81 20 99/63 100 Trach Collar 10 35 04/20/18 13:15 79 19 94/57 100 Trach Collar 10 35 04/20/18 13:00 80 18 99/59 100 Trach Collar 10 35 04/20/18 12:45 78 19 103/59 100 Trach Collar 10 35 04/20/18 12:30 78 19 96/62 100 Trach Collar 10 35 04/20/18 12:15 79 18 106/56 100 Trach Collar 10 35 04/20/18 12:05 78 18 108/65 100 Trach Collar 10 35 04/20/18 12:01 80 28 100 04/20/18 12:00 76 19 113/69 100 Trach Collar 10 35 04/20/18 11:55 97.3 78 18 126/75 100 Trach Collar 10 35 04/20/18 08:30 Trach Collar 4 04/20/18 08:30 98.9 74 20 116/61 100 Trach Collar 4 Height (Feet): 5 Height (Inches): 5.00 Weight (Pounds): 150 Laboratory Tests Test 04/20/18 08:20 White Blood Count 22.0 K/UL (4.8-10.8) H Red Blood Count 2.25 M/UL (4.70-6.10) L Hemoglobin 7.0 G/DL (14.2-18.0) L Hematocrit 19.6 % (42.0-52.0) L Mean Corpuscular Volume 87 FL (80-99) Mean Corpuscular Hemoglobin 31.0 PG (27.0-31.0) Mean Corpuscular Hemoglobin Concent 35.5 G/DL (32.0-36.0) Red Cell Distribution Width 15.1 % (11.6-14.8) H Platelet Count 326 K/UL (150-450) Mean Platelet Volume 6.6 FL (6.5-10.1) Neutrophils (%) (Auto) % (45.0-75.0) Lymphocytes (%) (Auto) % (20.0-45.0) Monocytes (%) (Auto) % (1.0-10.0) Eosinophils (%) (Auto) % (0.0-3.0) Basophils (%) (Auto) % (0.0-2.0) Differential Total Cells Counted 100 Neutrophils % (Manual) 74 % (45-75) Lymphocytes % (Manual) 20 % (20-45) Monocytes % (Manual) 4 % (1-10) Eosinophils % (Manual) 2 % (0-3) Basophils % (Manual) 0 % (0-2) Band Neutrophils 0 % (0-8) Platelet Estimate Adequate Platelet Morphology Normal Hypochromasia 3+ Anisocytosis 1+ Spherocytes 2+ Prothrombin Time 10.0 SEC (9.30-11.50) Prothromb Time International Ratio 0.9 (0.9-1.1) Activated Partial Thromboplast Time 27 SEC (23-33) Sodium Level 132 MMOL/L (136-145) L Potassium Level 3.1 MMOL/L (3.5-5.1) L Chloride Level 94 MMOL/L (98-107) L Carbon Dioxide Level 22 MMOL/L (21-32) Anion Gap 16 mmol/L (5-15) H Blood Urea Nitrogen 93 mg/dL (7-18) H Creatinine 5.6 MG/DL (0.55-1.30) H Estimat Glomerular Filtration Rate 10.2 mL/min (>60) Glucose Level 126 MG/DL (74-106) H Calcium Level 9.5 MG/DL (8.5-10.1) Current Medications Medications (Trade) Dose Ordered Sig/Xochilt Route PRN Reason Start Time Stop Time Status Last Admin Dose Admin Acetaminophen (Tylenol) 650 mg Q6H PRN GT Mild Pain (Pain Scale 1-3) 04/20/18 15:00 05/20/18 14:59 Aspirin (ASA) 81 mg DAILY GT 04/21/18 09:00 05/21/18 08:59 Atorvastatin Calcium (Lipitor) 40 mg BEDTIME GT 04/20/18 21:00 05/20/18 20:59 04/20/18 21:36 Dextrose (Dextrose 50%) 25 ml Q30M PRN IV Hypoglycemia 04/20/18 15:00 05/20/18 14:59 Dextrose (Dextrose 50%) 50 ml Q30M PRN IV Hypoglycemia 04/20/18 15:00 05/20/18 14:59 Insulin Aspart (NovoLOG) Q6HR SUBQ 04/20/18 18:00 05/20/18 17:59 Insulin Human Regular (NovoLIN R) 20 units Q12HR PRN SUBQ Sliding Scale 04/20/18 15:00 05/20/18 14:59 UNV Lansoprazole (Prevacid) 30 mg DAILY GT 04/21/18 09:00 05/21/18 08:59 Levothyroxine Sodium (Synthroid) 50 mcg DAILY GT 04/21/18 09:00 05/21/18 08:59 Metoclopramide HCl (Reglan) 10 mg NEEDED GT 04/20/18 15:00 05/20/18 14:59 UNV Midodrine (Pro-Amatine) 10 mg THREE TIMES A DAY GT 04/20/18 18:00 05/20/18 17:59 04/20/18 18:27 Sevelamer Carbonate (Renvela) 1,600 mg THREE TIMES A DAY GT 04/20/18 18:00 05/20/18 17:59 04/20/18 18:27 Vitamin B Complex/ Vit C/Folic Acid (Nephrovite) 1 tab DAILY GT 04/20/18 15:00 05/20/18 14:59 04/20/18 18:26 Zinc Sulfate (Zinc Sulfate) 220 mg DAILY GT 04/21/18 09:00 05/21/18 08:59 Denys Samson MD Apr 20, 2018 23:06
[2018-04-21] VITALS: BP 115/68
[2018-04-21] LABS: APPEARANCE,URINE CLOUDY; BILIRUBIN, URINE 1+ (NEGATIVE); GLUCOSE, URINE (UA) NEGATIVE (NEGATIVE); KETONES,URINE 1+ (NEGATIVE); LEUKOCYTE ESTERASE ,URINE 3+ (NEGATIVE); NITRITE,URINE POSITIVE (NEGATIVE); PH,URINE 5 (4.5-8.0); PROTEIN,URINE 3+ (NEGATIVE); UROBILINOGEN,URINE NORMAL MG/DL (0.0-1.0)
[2018-04-21] MEDS: NovoLOG Insulin Flexpen SUBQ SCH ×5 (00:43→23:09)
[2018-04-21] MEDS ORDERED: Vancomycin 1gm in D5W 275ml IVPB SCH (01:00)
--- NOTE | 2018-04-21 02:00 | NUR ---
NURSE NOTES: Specimens collected MRSA nares,VRE rect and stool culture, send to the lab
[2018-04-21 02:09] LABS: COLOR,URINE AMBER
--- NOTE | 2018-04-21 02:30 | NUR ---
NURSE NOTES: Patient started dialysis,tolerated well,continue monitor
[2018-04-21 04:00] VITALS: BP 140/89
[2018-04-21 05:33] LABS: HEMATOCRIT 20.1 % (42.0-52.0); HEMOGLOBIN 7.1 G/DL (14.2-18.0); MEAN CORPUSCULAR VOLUME 89 FL (80-99); PLATELET COUNT 259 K/UL (150-450); RED BLOOD COUNT 2.26 M/UL (4.70-6.10); RED CELL DISTRIBUTION WIDTH 14.8 % (11.6-14.8); WHITE BLOOD COUNT 12.9 K/UL (4.8-10.8)
[2018-04-21 06:26] LABS: ALANINE AMINOTRANSFERASE 17 U/L (12-78); ALBUMIN/GLOBULIN RATIO 0.6 (1.0-2.7); ALKALINE PHOSPHATASE 111 U/L (46-116); ANION GAP 13 mmol/L (5-15); ASPARTATE AMINO TRANSFERASE 22 U/L (15-37); BILIRUBIN,TOTAL 0.3 MG/DL (0.2-1.0); BLOOD UREA NITROGEN 68 mg/dL (7-18); CALCIUM 8.8 MG/DL (8.5-10.1); CARBON DIOXIDE 25 MMOL/L (21-32); CHLORIDE 97 MMOL/L (98-107); CREATININE 4.1 MG/DL (0.55-1.30); FERRITIN 927 NG/ML (8-388); POTASSIUM 3.4 MMOL/L (3.5-5.1); SODIUM 135 MMOL/L (136-145)
--- NOTE | 2018-04-21 07:00 | NUR ---
Patient trache dependent on T Piece with a Portex 8.0 tracheostomy tube. Patient currently on 6LPM Cool Aerosol 28% FIO2. Patient tolerating well. Will continue to monitor throughout the day.
[2018-04-21 07:09] LABS: % IRON SATURATION 23 % (15-50); IRON 52 ug/dL (50-175); TOTAL IRON BINDING CAPACITY 229 ug/dL (250-450)
--- NOTE | 2018-04-21 07:30 | NUR ---
HAND-OFF: Report given to AMBROSE Jaeger.Patient stable.
--- NOTE | 2018-04-21 07:35 | NUR ---
NURSE NOTES: Report received from Ariana Levine RN.Pt resting in bed asleep but eyes open spontaneously when called by name,noted no resp distress on T-Piece 28% Fio2,no signs of pain or discomfort,SR on the monitor,GTF Nepro at 55ml/hr ,no residual noted with condom cath in placed,IV site HL, to RH and Perma cath to RT SC intact.Pt with [facility] AV Shunt for HD access.skin warm and dry SR up x2 HOB elevated,bed lock in lowest position,will continue with plans of care.
[2018-04-21 08:00] VITALS: BP 113/64
[2018-04-21] MEDS: Midodrine 10mg tab GT SCH ×3 (08:54→17:35)
[2018-04-21] MEDS: Zinc Sulfate 220mg cap GT SCH (08:54)
[2018-04-21] MEDS: Renvela 800mg Pkt GT SCH ×3 (08:55→17:35)
[2018-04-21] MEDS: Nephrovite tab (Rena-Vite) GT SCH (08:55)
[2018-04-21] MEDS ORDERED: Aspirin Baby 81mg GT SCH (09:00)
--- NOTE | 2018-04-21 09:45 | NUR ---
RADIOLOGY DEPT CHEST X-RAY DONE.-P.DYE
--- NOTE | 2018-04-21 10:00 | NUR ---
NURSE NOTES: Pt with large amount of Liquid bloody diarrhea like stools,Ashley Cristina informed,plans for EGD and Colonoscopy.Pt turned and repositioned,kept dry and cleaned.
--- NOTE | 2018-04-21 11:12 | NUR ---
RD ASSESSMENT & RECOMMENDATIONS SEE CARE ACTIVITY FOR COMPLETE ASSESSMENT DAILY ESTIMATED NEEDS: Needs based on Pulmonary, DM, ESRD on HD, TF CORONER 69kg 23-28 kcals/kg 6648-8422 total kcals 1.2-1.8 g protein/kg 83-124 g total protein Fluid per MD, on HD mL/kg 8347-3396 total fluid mLs NUTRITION DIAGNOSIS: 1) Increased kcal and protein needs r/t renal dysfunction as evidenced by pt w/ ESRD on HD. 2) Swallowing difficulty r/t respiratory status as evidenced by pt is vent dep via T-piece w/ GT to meet nutritional needs. CURRENT TF:NEPRO @55ml/hr x22 hrs (on synthroid) ENTERAL NUTRITION RECOMMENDATIONS: NEPRO @45ml/hr x22 hrs + Prosource 1 pkt daily to provide 990ml, 1782 kcal, 80g +11g prot, 720ml free H2O - Rec TO LOWER TF RATE as current rate exceeds pt's est kcal needs by 113%. - Lower to 45ml/hr x2 hrs - Add Prosource 1 packet daily to better meet est pro needs - HOLD TF 1 hr before and after synthroid - Flush per MD/ HOB over 30 degrees ADDITIONAL RECOMMENDATIONS: 1) Maintain calibrated bed scale wts 2) F/up w/ WC eval for sacral and R heel wound 3) Tf recs as above * Monitor lytes closely, replete as needed .
--- NOTE | 2018-04-21 11:22 | 48 Hour Post Anesthesia Eval ---
Post Anesthesia Evaluation Procedure: Left UE A-V fistula Date of Evaluation: Apr 21, 2018 Time of Evaluation: 11:21 Blood Pressure Systolic: 113 0: 64 Pulse Rate: 104 Respiratory Rate: 18 Temperature (Fahrenheit): 98 O2 Sat by Pulse Oximetry: 99 Airway: patent Nausea: No Vomiting: No Pain Intensity: 2 Hydration Status: adequate Cardiopulmonary Status: Stable Mental Status/LOC: patient returned to baseline Follow-up Care/Observations: 0 Post-Anesthesia Complications: 0 Follow-up care needed: N/A Juan Miguel Vergara MD Apr 21, 2018 11:22
[2018-04-21 12:00] VITALS: BP 108/74
--- NOTE | 2018-04-21 12:13 | Diagnostic Imaging Report ---
Indication: Dyspnea Comparison: 06/20/2017 A single view chest radiograph was obtained. Findings: Permacath noted on the right. Tracheostomy noted. The tip is projected over the SVC. Heart size is normal. Lungs are clear. Bones are osteopenic. IMPRESSION: No acute findings.
--- NOTE | 2018-04-21 13:00 | NUR ---
NURSE NOTES: Oral care done,tracheal/oral suctioning done PRN with large amount of tracheal thick secretions.
--- NOTE | 2018-04-21 13:46 | Cardiology Report ---
APPROVED REPORT EKG Measurement Heart [id number] Normal sinus rhythm Normal ECG
--- NOTE | 2018-04-21 14:09 | Nephrology Progress Note ---
Assessment/Plan Problem List: (1) Heel sore Assessment: -will asses with wound care, cont nutrition and off loading (2) Encephalopathy Assessment: -chronic (3) Anemia Assessment: -pt had bloody stool -transfuse 2 more units -per GI may need colonoscopy -PPI -epogen with HD (4) Dysphagia as late effect of cerebrovascular accident (CVA) Assessment: -hold tube feeds per GI (5) Diabetes Assessment: -Follow blood sugars with sliding scale (6) History of CVA (cerebrovascular accident) (7) Sepsis Assessment: -ID wrote for broad spect abx -f/u cultures -wbc count better Subjective ROS Limited/Unobtainable: Yes Subjective pt. seen and examined still having BRBPR s/p hd this am -1 liter d/w rna t bedside ngtube clamped appreciate gi and ID eval, wbc count improved no distress Objective Objective Last 24 Hour Vital Signs Date Time Temp Pulse Resp B/P (MAP) Pulse Ox O2 Delivery O2 Flow Rate FiO2 04/21/18 12:47 T-piece 6.0 28 04/21/18 12:47 100 T-piece 6.0 28 04/21/18 12:00 T-piece 6.0 04/21/18 12:00 94 04/21/18 12:00 6.0 28 04/21/18 11:22 104 18 99 04/21/18 08:00 100 04/21/18 08:00 T-piece 6.0 04/21/18 08:00 98.0 104 18 113/64 (80) 99 04/21/18 08:00 6.0 28 04/21/18 07:36 100 T-piece 6.0 28 04/21/18 07:36 T-piece 6.0 28 04/21/18 04:00 T-piece 6.0 04/21/18 04:00 6.0 04/21/18 04:00 97.3 103 16 140/89 (106) 100 04/21/18 03:45 100 04/21/18 01:05 T-piece 6.0 28 04/21/18 00:00 T-piece 6.0 04/21/18 00:00 97.2 81 16 115/68 (84) 100 04/21/18 00:00 6.0 04/20/18 23:59 81 04/20/18 20:00 97.5 82 16 124/74 (91) 100 04/20/18 20:00 T-piece 6.0 04/20/18 19:50 T-piece 6.0 28 04/20/18 19:50 100 T-piece 6.0 28 04/20/18 19:06 80 04/20/18 17:12 6.0 04/20/18 16:33 100 T-piece 6.0 28 04/20/18 16:33 T-piece 6.0 28 04/20/18 16:00 81 04/20/18 16:00 97.7 79 18 107/67 (80) 100 04/20/18 15:54 T-piece 8.0 Intake and Output 04/20/18 04/21/18 19:00 07:00 Intake Total 900 ml 205 ml Output Total 30 ml 1051 ml Balance 870 ml -846 ml Intake Free Water 150 ml IV Total 650 ml Tube Feeding 55 ml Blood Product 250 ml Output Urine Total 50 ml Stool Total 1 ml Hemodialysis UF 1000 ml Estimated Blood Loss 30 ml # Bowel Movements 2 2 Laboratory Tests 04/20/18 23:00: Urine Color Yodit, Urine Appearance Cloudy, Urine pH 5, Urine Specific [place] 1.010, Urine Protein 3+H, Urine Glucose (UA) Negative, Urine Ketones 1+H, Urine Blood 4+H, Urine Nitrite PositiveH, Urine Bilirubin 1+H, Urine Ictotest Positive , Urine Urobilinogen Normal, Urine Leukocyte Esterase 3+H, Urine RBC TntcH, Urine WBC TntcH, Urine Squamous Epithelial Cells None, Urine Bacteria ManyH, Urine Yeast ModerateH 04/21/18 02:30: Stool Occult Blood Positive 04/21/18 03:00: White Blood Count 12.9H, Red Blood Count 2.26L, Hemoglobin 7.1L, Hematocrit 20.1L, Mean Corpuscular Volume 89, Mean Corpuscular Hemoglobin 31.3H, Mean Corpuscular Hemoglobin Concent 35.1, Red Cell Distribution Width 14.8, Platelet Count 259, Mean Platelet Volume 6.6, Neutrophils (%) (Auto) , Lymphocytes (%) ( Auto) , Monocytes (%) (Auto) , Eosinophils (%) (Auto) , Basophils (%) (Auto) , Differential Total Cells Counted 100, Neutrophils % (Manual) 70, Lymphocytes % ( Manual) 22, Monocytes % (Manual) 4, Eosinophils % (Manual) 1, Basophils % ( Manual) 0, Band Neutrophils 3, Platelet Estimate Adequate, Platelet Morphology Normal, Red Blood Cell Morphology Normal, Reticulocyte Count 1.7, Prothrombin Time 10.7, Prothromb Time International Ratio 1.0, Activated Partial Thromboplast Time 44H, Sodium Level 135L, Potassium Level 3.4L, Chloride Level 97L, Carbon Dioxide Level 25, Anion Gap 13, Blood Urea Nitrogen 68H, Creatinine 4.1H, Estimat Glomerular Filtration Rate 14.6, Glucose Level 114H, Calcium Level 8.8, Magnesium Level 2.5H, Iron Level 52, Total Iron Binding Capacity 229L , Percent Iron Saturation 23, Unsaturated Iron Binding 177, Ferritin 927H, Total Bilirubin 0.3, Aspartate Amino Transf (AST/SGOT) 22, Alanine Aminotransferase (ALT/SGPT) 17, Alkaline Phosphatase 111, Total Protein 7.7, Albumin 3.0L, Globulin 4.7, Albumin/Globulin Ratio 0.6L, Carcinoembryonic Antigen [Pending], Vitamin B12 Level 936, Folate 61.7H, Thyroid Stimulating Hormone (TSH) 0.773, Free Thyroxine 1.12 Height (Feet): 5 Height (Inches): 5.00 Weight (Pounds): 150 General Appearance: lethargic, confused EENT: PERRL/EOMI, normal ENT inspection Neck: supple, limited range of motion, other - trach Cardiovascular: normal peripheral pulses Respiratory/Chest: decreased breath sounds Abdomen: soft, hypoactive bowel sounds, other - Gtube intact Genitourinary/Rectal: normal genital exam Extremities: non-tender Neurologic: no Babinski, disoriented, unresponsive, aphasia Demarco Griffin M.D. Apr 21, 2018 14:09
--- NOTE | 2018-04-21 14:16 | Diagnostic Imaging Report ---
APPROVED REPORT CPT Code: G0365 Present Symptoms Comments: Left arm vein mapping for pre-Op Vein Measurements(cm) Cephalic Basilic Right LeftRight Left Upper Arm0.27Mid Upper Arm0.55 Mid Upper Arm0.28Antecubital Fossa0.24 Upper Forearm0.23 Antecubital Fossa0.28Wrist LEFT VEIN MAPPING: The left basilic and left cephalic veins were imaged and measured to evaluate as a potential graft for dialysis access. The deep and superficial venous system are with in normal limits.
--- NOTE | 2018-04-21 14:16 | Diagnostic Imaging Report ---
APPROVED REPORT CPT Code: G0365 Present Symptoms Comments: Pre-op Vein Measurements(cm) Cephalic Basilic Right LeftRight Left 0.23Upper Arm0.33Mid Upper Arm Mid Upper Arm0.24Antecubital Fossa 0.28Upper Forearm 0.33 RIGHT VEIN MAPPING: The right basilic and cephalic veins were imaged and measured to evaluate as a potential graft for dialysis access. The deep and superficial venous system are with in normal limits.
--- NOTE | 2018-04-21 14:51 | GI Progress Note ---
Assessment/Plan Problems: (1) GI bleed ICD Codes: K92.2 - Gastrointestinal hemorrhage, unspecified SNOMED: 58914716 (2) Sepsis ICD Codes: A41.9 - Sepsis, unspecified organism SNOMED: 02438276 (3) Gastrostomy tube dependent ICD Codes: Z93.1 - Gastrostomy status SNOMED: 171328639, 840160239 (4) Dehydration ICD Codes: E86.0 - Dehydration SNOMED: 27730083 (5) Dysphagia as late effect of cerebrovascular accident (CVA) ICD Codes: I69.391 - Dysphagia following cerebral infarction SNOMED: 232195596 (6) Anemia ICD Codes: D64.9 - Anemia, unspecified SNOMED: 403922945 Qualifiers: Status: unchanged Status Narrative Discussed with Dr. Nixon Assessment/Plan EGD colonoscopy scheduled for tomorrow. -N.p.o. at midnight -Hold all blood thinners tonight OB stool r/o GI bleed monitor H&H, prn transfusions bowel regime ppi fu labs We will follow with additional recommendations post procedure The patient was seen and examined at bedside and all new and available data was reviewed in the patients chart. I agree with the above findings, impression and plan. (Patient seen earlier today. Signature stamp does not reflect patient encounter time.). - Juan Nixon MD Subjective Subjective Limited Objective Last 24 Hour Vital Signs Date Time Temp Pulse Resp B/P (MAP) Pulse Ox O2 Delivery O2 Flow Rate FiO2 04/21/18 12:47 T-piece 6.0 28 04/21/18 12:47 100 T-piece 6.0 28 04/21/18 12:00 T-piece 6.0 04/21/18 12:00 94 04/21/18 12:00 6.0 28 04/21/18 12:00 98.4 86 18 108/74 (85) 100 04/21/18 11:22 104 18 99 04/21/18 08:00 100 04/21/18 08:00 T-piece 6.0 04/21/18 08:00 98.0 104 18 113/64 (80) 99 04/21/18 08:00 6.0 28 04/21/18 07:36 100 T-piece 6.0 28 04/21/18 07:36 T-piece 6.0 28 04/21/18 04:00 T-piece 6.0 04/21/18 04:00 6.0 04/21/18 04:00 97.3 103 16 140/89 (106) 100 04/21/18 03:45 100 04/21/18 01:05 T-piece 6.0 28 04/21/18 00:00 T-piece 6.0 04/21/18 00:00 97.2 81 16 115/68 (84) 100 04/21/18 00:00 6.0 04/20/18 23:59 81 04/20/18 20:00 97.5 82 16 124/74 (91) 100 04/20/18 20:00 T-piece 6.0 04/20/18 19:50 T-piece 6.0 28 04/20/18 19:50 100 T-piece 6.0 28 04/20/18 19:06 80 04/20/18 17:12 6.0 04/20/18 16:33 100 T-piece 6.0 28 04/20/18 16:33 T-piece 6.0 28 04/20/18 16:00 81 04/20/18 16:00 97.7 79 18 107/67 (80) 100 04/20/18 15:54 T-piece 8.0 Intake and Output 04/20/18 04/21/18 19:00 07:00 Intake Total 900 ml 205 ml Output Total 30 ml 1051 ml Balance 870 ml -846 ml Intake Free Water 150 ml IV Total 650 ml Tube Feeding 55 ml Blood Product 250 ml Output Urine Total 50 ml Stool Total 1 ml Hemodialysis UF 1000 ml Estimated Blood Loss 30 ml # Bowel Movements 2 2 Laboratory Tests Test 04/20/18 23:00 04/21/18 02:30 04/21/18 03:00 Urine Color Yodit Urine Appearance Cloudy Urine pH 5 (4.5-8.0) Urine Specific [place] 1.010 (1.005-1.035) Urine Protein 3+ (NEGATIVE) H Urine Glucose (UA) Negative (NEGATIVE) Urine Ketones 1+ (NEGATIVE) H Urine Blood 4+ (NEGATIVE) H Urine Nitrite Positive (NEGATIVE) H Urine Bilirubin 1+ (NEGATIVE) H Urine Ictotest Positive (NEGATIVE) Urine Urobilinogen Normal MG/DL (0.0-1.0) Urine Leukocyte Esterase 3+ (NEGATIVE) H Urine RBC Tntc /HPF (0 - 0) H Urine WBC Tntc /HPF (0 - 0) H Urine Squamous Epithelial Cells None /LPF (NONE/OCC) Urine Bacteria Many /HPF (NONE) H Urine Yeast Moderate /HPF (NONE) H Stool Occult Blood Positive (NEGATIVE) White Blood Count 12.9 K/UL (4.8-10.8) H Red Blood Count 2.26 M/UL (4.70-6.10) L Hemoglobin 7.1 G/DL (14.2-18.0) L Hematocrit 20.1 % (42.0-52.0) L Mean Corpuscular Volume 89 FL (80-99) Mean Corpuscular Hemoglobin 31.3 PG (27.0-31.0) H Mean Corpuscular Hemoglobin Concent 35.1 G/DL (32.0-36.0) Red Cell Distribution Width 14.8 % (11.6-14.8) Platelet Count 259 K/UL (150-450) Mean Platelet Volume 6.6 FL (6.5-10.1) Neutrophils (%) (Auto) % (45.0-75.0) Lymphocytes (%) (Auto) % (20.0-45.0) Monocytes (%) (Auto) % (1.0-10.0) Eosinophils (%) (Auto) % (0.0-3.0) Basophils (%) (Auto) % (0.0-2.0) Differential Total Cells Counted 100 Neutrophils % (Manual) 70 % (45-75) Lymphocytes % (Manual) 22 % (20-45) Monocytes % (Manual) 4 % (1-10) Eosinophils % (Manual) 1 % (0-3) Basophils % (Manual) 0 % (0-2) Band Neutrophils 3 % (0-8) Platelet Estimate Adequate Platelet Morphology Normal Red Blood Cell Morphology Normal Reticulocyte Count 1.7 % (0.0-2.0) Prothrombin Time 10.7 SEC (9.30-11.50) Prothromb Time International Ratio 1.0 (0.9-1.1) Activated Partial Thromboplast Time 44 SEC (23-33) H Sodium Level 135 MMOL/L (136-145) L Potassium Level 3.4 MMOL/L (3.5-5.1) L Chloride Level 97 MMOL/L (98-107) L Carbon Dioxide Level 25 MMOL/L (21-32) Anion Gap 13 mmol/L (5-15) Blood Urea Nitrogen 68 mg/dL (7-18) H Creatinine 4.1 MG/DL (0.55-1.30) H Estimat Glomerular Filtration Rate 14.6 mL/min (>60) Glucose Level 114 MG/DL (74-106) H Calcium Level 8.8 MG/DL (8.5-10.1) Magnesium Level 2.5 MG/DL (1.8-2.4) H Iron Level 52 ug/dL (50-175) Total Iron Binding Capacity 229 ug/dL (250-450) L Percent Iron Saturation 23 % (15-50) Unsaturated Iron Binding 177 ug/dL (112-346) Ferritin 927 NG/ML (8-388) H Total Bilirubin 0.3 MG/DL (0.2-1.0) Aspartate Amino Transf (AST/SGOT) 22 U/L (15-37) Alanine Aminotransferase (ALT/SGPT) 17 U/L (12-78) Alkaline Phosphatase 111 U/L (46-116) Total Protein 7.7 G/DL (6.4-8.2) Albumin 3.0 G/DL (3.4-5.0) L Globulin 4.7 g/dL Albumin/Globulin Ratio 0.6 (1.0-2.7) L Carcinoembryonic Antigen Pending Vitamin B12 Level 936 PG/ML (193-986) Folate 61.7 NG/ML (8.6-58.9) H Thyroid Stimulating Hormone (TSH) 0.773 uiU/mL (0.358-3.740) Free Thyroxine 1.12 NG/DL (0.76-1.46) Microbiology Date/Time Source Procedure Growth Status 04/20/18 23:00 Sputum Induced Gram Stain - Final Resulted 04/20/18 23:00 Sputum Induced Sputum Culture - Preliminary NO GROWTH Resulted Height (Feet): 5 Height (Inches): 5.00 Weight (Pounds): 150 General Appearance: WD/WN, no apparent distress, alert Cardiovascular: normal rate Respiratory/Chest: normal breath sounds, no respiratory distress Abdominal Exam: normal bowel sounds, non tender, soft Extremities: normal range of motion, non-tender Objective Rectal bleeding reported by the Hair Bell NP Apr 21, 2018 14:51
--- NOTE | 2018-04-21 15:00 | NUR ---
NURSE NOTES:WOUND CARE NOTES:PT presents with small partial thickness wound L buttocks (L)0.5cm x (W)0.5cm.Wound bed viable with epithelialized borders and hyperpigmentation periwound. Resolving pressure injury lateral L thigh. Wound bed pink-dry ,edges adherent .Periwound dry without erythema or induration.No exudate noted (L)2cm x (W)1cm.Partial thickness wound R heel .Wound bed viable ,edges adherent to base of wound .Non-blanchable erythema with fluctuance periwound(L)2cm x (W)2cm.R heel boggy but blanchable. Tx.Plan: Apply Moisture Barrier Paste to sacrum .Cover with Optifoam drsg.Change every 3 days and prn. Apply Cavilon to L lateral /Upper thigh.Cover with Optifoam drsg.Change every 7 days and prn. Cleanse R heel wound with saline.Apply Hydrogel.Cavilon Skin Barrier periwound.Cover with Optifoam drsg Daily and PRN. Support Surface mattress. Off-load heels with pillow. Reposition at least every 2hours or as tolerated.
[2018-04-21 16:00] VITALS: BP 106/55
[2018-04-21] MEDS ORDERED: Vancomycin 1gm/D5W 275ml IVPB SCH ×2 (16:00)
[2018-04-21] MEDS ORDERED: Nulytely 4L ORAL SCH (16:00)
--- NOTE | 2018-04-21 17:00 | NUR ---
NURSE NOTES: Pt for Colonoscopy,Nulytely prep started,will continue to monitor pt.
--- NOTE | 2018-04-21 19:20 | NUR ---
HAND-OFF: Report given to Georgina Hull RN.
--- NOTE | 2018-04-21 19:21 | NUR ---
NURSE NOTES: Bedside report received from AMBROSE Hayes. Pt is nonverbal, unable to follow commands, or make needs known. Follow with eyes, and responds to touch. campus monitor showing NSR. T-piece Port[place] 8, 28% fiO2, 6L; sating 100%. CGT Nepro @ 45, WF 150 Q8. Go Lytely ordered, approximately 2L left, residual of GT > 240. Will continue to monitor and attempt to finish before MN. Skin is clean and dry, however per RN pt had several liquid BM, order for RT current, will place. Dressings are intact currently, order for foot wound culture due, will carry out. RH 22g TKO asymptomatic, order for blood transfusion 2 units PRBCs. 20g needed will attempt but pt appears to be hard stick. Will let supercharge repair supervisor know. EGD and colonoscopy in AM consent signed for transfusion and procedure. Bed is locked in lowest position, side rails x3, call saenz within reach, bed alarm on. Will continue to monitor and follow plan of care.
--- NOTE | 2018-04-21 19:47 | NUR ---
CASE MANAGEMENT: REVIEW 67/M [facility] FROM [facility] CC: POSSIBLE REPLACEMENT OF DIALYSIS CATHETER SI: ESRD ON HD . ANEMIA LEFT UE A-V FISTULA 04/20 T 97.3 HR 78 RR 18 BP 116/61 SAT 100% T-COLLAR FIO2 35 WBC 22.0 H/H 7.0/19.6 NA 132 K 3.1 BUN 93 CR 5.6 IS: FENTANYL IV X1 VERSED IV X1 PROPOFOL IV X1 NS IVF BOLUS X1 PATIENT ADMITTED TO STEP DOWN UNIT 04/20/2018 DCP: PATIENT IS FROM [facility]
[2018-04-21 20:00] VITALS: BP 102/59
--- NOTE | 2018-04-21 20:08 | Consultation ---
History of Present Illness General Date patient seen: Apr 21, 2018 Referring physician: DAMION Reason for Consultation: Anemia Present Illness Allergies: Coded Allergies: No Known Allergies (Unverified , 04/14/16) Medication History Scheduled Aspirin* (Aspirin*), 81 MG GT DAILY, (Reported) Atorvastatin Calcium* (Atorvastatin Calcium*), 40 MG GT BEDTIME, (Reported) Famotidine (Famotidine), 20 MG GT DAILY, (Reported) Insulin Lispro (Humalog), Unknown Dose SUBQ Q6HR, (Reported) Levothyroxine Sodium* (Synthroid*), 50 MCG GT DAILY, (Reported) Metoclopramide Hcl* (Metoclopramide Hcl*), 10 MG GT NEEDED, (Reported) Midodrine* (Proamatine*), 10 MG GT THREE TIMES A DAY, (Reported) Sevelamer Carbonate* (Renvela*), 1,600 MG GT THREE TIMES A DAY, (Reported) Vitamin B Cmplx/Vit C/Folic AC (Nephro-Micah Tablet), 1 TAB GT DAILY, (Reported) Zinc Sulfate (Zinc Sulfate), 220 MG GT DAILY, (Reported) Scheduled PRN Acetaminophen (Acetaminophen), 650 MG GT Q6HR PRN for Mild Pain (Pain Scale 1-3) , (Reported) Insulin Regular, Human (Humulin R), 20 UNITS SUBQ Q12HR PRN for Sliding Scale, ( Reported) Discontinued Medications Cefepime Hcl (Maxipime), 2 GM IV Q12HR, (Reported) Discontinued Reason: Pt stopped taking med Cefepime Hcl/Dextrose, Iso-Osm (Cefepime 1 Gm Injection), 1 GM IV EVERY 12 HOURS , (Reported) Discontinued Reason: Pt stopped taking med Donepezil Hcl* (Aricept*), 10 MG GT DAILY, (Reported) Discontinued Reason: Pt stopped taking med Donepezil Hcl* (Aricept*), 10 MG ORAL DAILY, (Reported) Discontinued Reason: Pt stopped taking med Insulin Detemir (Levemir), 40 UNITS SUBQ EVERY 12 HOURS, (Reported) Discontinued Reason: Pt stopped taking med Insulin Detemir (Levemir), 0 SUBQ BID, (Reported) Discontinued Reason: Pt stopped taking med Magnesium Oxide (Magnesium Oxide), 400 MG GT DAILY, (Reported) Discontinued Reason: MD discontinued med Magnesium Oxide (Magnesium Oxide), 400 MG ORAL DAILY, (Reported) Discontinued Reason: Pt stopped taking med Multivitamin (Multi Vitamin Daily), 1 TAB ORAL DAILY, (Reported) Discontinued Reason: Pt stopped taking med Multivitamins* (Multivitamins*), 1 TAB GT DAILY, (Reported) Discontinued Reason: Pt stopped taking med Nitroglycerin (Nitroglycerin), 0.4 MG SL every 5 mins, (Reported) Discontinued Reason: Pt stopped taking med Phosphorus (Phospha 250 Neutral Tablet), 500 MG GT TID, (Reported) Discontinued Reason: Pt stopped taking med Vancomycin Hcl/D5w (Vancomycin-D5w 1 G/250 Ml), 1.25 GM IVPB Q12HR, (Reported) Discontinued Reason: Pt stopped taking med Patient History Healthcare decision maker Resuscitation status Full Code Advanced Directive on File No Physical Exam Last 24 Hour Vital Signs Date Time Temp Pulse Resp B/P (MAP) Pulse Ox O2 Delivery O2 Flow Rate FiO2 04/21/18 16:00 99.4 89 18 106/55 (72) 100 04/21/18 16:00 90 04/21/18 16:00 T-piece 6.0 04/21/18 16:00 6.0 28 04/21/18 12:47 T-piece 6.0 28 04/21/18 12:47 100 T-piece 6.0 28 04/21/18 12:00 T-piece 6.0 04/21/18 12:00 94 04/21/18 12:00 6.0 28 04/21/18 12:00 98.4 86 18 108/74 (85) 100 04/21/18 11:22 104 18 99 04/21/18 08:00 100 04/21/18 08:00 T-piece 6.0 04/21/18 08:00 98.0 104 18 113/64 (80) 99 04/21/18 08:00 6.0 28 04/21/18 07:36 100 T-piece 6.0 28 04/21/18 07:36 T-piece 6.0 28 04/21/18 04:00 T-piece 6.0 04/21/18 04:00 6.0 04/21/18 04:00 97.3 103 16 140/89 (106) 100 04/21/18 03:45 100 04/21/18 01:05 T-piece 6.0 28 04/21/18 00:00 T-piece 6.0 04/21/18 00:00 97.2 81 16 115/68 (84) 100 04/21/18 00:00 6.0 04/20/18 23:59 81 Intake and Output 04/20/18 04/21/18 18:59 06:59 Intake Total 900 ml 205 ml Output Total 30 ml 1051 ml Balance 870 ml -846 ml Intake Free Water 150 ml IV Total 650 ml Tube Feeding 55 ml Blood Product 250 ml Output Urine Total 50 ml Stool Total 1 ml Hemodialysis UF 1000 ml Estimated Blood Loss 30 ml # Bowel Movements 2 2 Laboratory Tests Test 04/20/18 23:00 04/21/18 02:30 04/21/18 03:00 Urine Color Yodit Urine Appearance Cloudy Urine pH 5 (4.5-8.0) Urine Specific [place] 1.010 (1.005-1.035) Urine Protein 3+ (NEGATIVE) H Urine Glucose (UA) Negative (NEGATIVE) Urine Ketones 1+ (NEGATIVE) H Urine Blood 4+ (NEGATIVE) H Urine Nitrite Positive (NEGATIVE) H Urine Bilirubin 1+ (NEGATIVE) H Urine Ictotest Positive (NEGATIVE) Urine Urobilinogen Normal MG/DL (0.0-1.0) Urine Leukocyte Esterase 3+ (NEGATIVE) H Urine RBC Tntc /HPF (0 - 0) H Urine WBC Tntc /HPF (0 - 0) H Urine Squamous Epithelial Cells None /LPF (NONE/OCC) Urine Bacteria Many /HPF (NONE) H Urine Yeast Moderate /HPF (NONE) H Stool Occult Blood Positive (NEGATIVE) White Blood Count 12.9 K/UL (4.8-10.8) H Red Blood Count 2.26 M/UL (4.70-6.10) L Hemoglobin 7.1 G/DL (14.2-18.0) L Hematocrit 20.1 % (42.0-52.0) L Mean Corpuscular Volume 89 FL (80-99) Mean Corpuscular Hemoglobin 31.3 PG (27.0-31.0) H Mean Corpuscular Hemoglobin Concent 35.1 G/DL (32.0-36.0) Red Cell Distribution Width 14.8 % (11.6-14.8) Platelet Count 259 K/UL (150-450) Mean Platelet Volume 6.6 FL (6.5-10.1) Neutrophils (%) (Auto) % (45.0-75.0) Lymphocytes (%) (Auto) % (20.0-45.0) Monocytes (%) (Auto) % (1.0-10.0) Eosinophils (%) (Auto) % (0.0-3.0) Basophils (%) (Auto) % (0.0-2.0) Differential Total Cells Counted 100 Neutrophils % (Manual) 70 % (45-75) Lymphocytes % (Manual) 22 % (20-45) Monocytes % (Manual) 4 % (1-10) Eosinophils % (Manual) 1 % (0-3) Basophils % (Manual) 0 % (0-2) Band Neutrophils 3 % (0-8) Platelet Estimate Adequate Platelet Morphology Normal Red Blood Cell Morphology Normal Reticulocyte Count 1.7 % (0.0-2.0) Prothrombin Time 10.7 SEC (9.30-11.50) Prothromb Time International Ratio 1.0 (0.9-1.1) Activated Partial Thromboplast Time 44 SEC (23-33) H Sodium Level 135 MMOL/L (136-145) L Potassium Level 3.4 MMOL/L (3.5-5.1) L Chloride Level 97 MMOL/L (98-107) L Carbon Dioxide Level 25 MMOL/L (21-32) Anion Gap 13 mmol/L (5-15) Blood Urea Nitrogen 68 mg/dL (7-18) H Creatinine 4.1 MG/DL (0.55-1.30) H Estimat Glomerular Filtration Rate 14.6 mL/min (>60) Glucose Level 114 MG/DL (74-106) H Calcium Level 8.8 MG/DL (8.5-10.1) Magnesium Level 2.5 MG/DL (1.8-2.4) H Iron Level 52 ug/dL (50-175) Total Iron Binding Capacity 229 ug/dL (250-450) L Percent Iron Saturation 23 % (15-50) Unsaturated Iron Binding 177 ug/dL (112-346) Ferritin 927 NG/ML (8-388) H Total Bilirubin 0.3 MG/DL (0.2-1.0) Aspartate Amino Transf (AST/SGOT) 22 U/L (15-37) Alanine Aminotransferase (ALT/SGPT) 17 U/L (12-78) Alkaline Phosphatase 111 U/L (46-116) Total Protein 7.7 G/DL (6.4-8.2) Albumin 3.0 G/DL (3.4-5.0) L Globulin 4.7 g/dL Albumin/Globulin Ratio 0.6 (1.0-2.7) L Carcinoembryonic Antigen Pending Vitamin B12 Level 936 PG/ML (193-986) Folate 61.7 NG/ML (8.6-58.9) H Thyroid Stimulating Hormone (TSH) 0.773 uiU/mL (0.358-3.740) Free Thyroxine 1.12 NG/DL (0.76-1.46) Microbiology Date/Time Source Procedure Growth Status 04/20/18 23:00 Sputum Induced Gram Stain - Final Resulted 04/20/18 23:00 Sputum Induced Sputum Culture - Preliminary NO GROWTH Resulted Height (Feet): 5 Height (Inches): 5.00 Weight (Pounds): 150 Medications Current Medications Medications (Trade) Dose Ordered Sig/Xochilt Route PRN Reason Start Time Stop Time Status Last Admin Dose Admin Acetaminophen (Tylenol) 650 mg Q6H PRN GT Mild Pain (Pain Scale 1-3) 04/20/18 15:00 05/20/18 14:59 Atorvastatin Calcium (Lipitor) 40 mg BEDTIME GT 04/20/18 21:00 05/20/18 20:59 04/20/18 21:36 Cefepime HCl 1 gm/ Dextrose 50 ml @ 100 mls/hr Q24HRS IVPB 04/20/18 23:00 04/27/18 22:59 Dextrose (Dextrose 50%) 25 ml Q30M PRN IV Hypoglycemia 04/20/18 15:00 05/20/18 14:59 Dextrose (Dextrose 50%) 50 ml Q30M PRN IV Hypoglycemia 04/20/18 15:00 05/20/18 14:59 Insulin Aspart (NovoLOG) Q6HR SUBQ 04/20/18 18:00 05/20/18 17:59 04/21/18 18:00 Insulin Human Regular (NovoLIN R) 20 units Q12HR PRN SUBQ Sliding Scale 04/20/18 15:00 05/20/18 14:59 UNV Lansoprazole (Prevacid) 30 mg DAILY GT 04/21/18 09:00 05/21/18 08:59 04/21/18 08:55 Levothyroxine Sodium (Synthroid) 50 mcg DAILY GT 04/21/18 09:00 05/21/18 08:59 04/21/18 08:54 Metoclopramide HCl (Reglan) 10 mg NEEDED GT 04/20/18 15:00 05/20/18 14:59 UNV Metronidazole 100 ml @ 100 mls/hr Q8HR IVPB 04/20/18 23:15 04/27/18 23:14 04/21/18 14:28 Midodrine (Pro-Amatine) 10 mg THREE TIMES A DAY GT 04/20/18 18:00 05/20/18 17:59 04/21/18 17:35 Polyethylene Glycol/ Electrolytes (Nulytely) 4,000 ml ONCE ORAL 04/21/18 16:00 04/21/18 23:59 04/21/18 17:33 Sevelamer Carbonate (Renvela) 1,600 mg THREE TIMES A DAY GT 04/20/18 18:00 05/20/18 17:59 04/21/18 17:35 Vancomycin HCl (Vanco rx to dose) 1 ea DAILY PRN MISC Per rx protocol 04/20/18 23:00 05/20/18 22:59 Vitamin B Complex/ Vit C/Folic Acid (Nephrovite) 1 tab DAILY GT 04/20/18 15:00 05/20/18 14:59 04/21/18 08:55 Zinc Sulfate (Zinc Sulfate) 220 mg DAILY GT 04/21/18 09:00 05/21/18 08:59 04/21/18 08:54 Assessment/Plan Assessment/Plan Hematology Consultation REQ MD: Magdalena Marcano RFC: Anemia, ongoing DOS: 04/21/18 ID 67 y/o male with advanced dementia, chronic respiratory failure s/p trach, admitted after had new left UE fistula creation. Pt. has ESRD on hd via right upper chest catheter. On admission he has low hgb and leukocytosis. Pt. has been residing in snf, has h.o anemia secondary to renal disease, has been on tube feeds after sustained acute cva. Currently pt confused, awake, no specific c/o, no events noted, on antibiotics as per ID team, ue fistula was completed and results in the emr. Hematology consult ordered given progressed anemia, hgb 7.1, jlnet does get epo, and not iron at this time. Allergies: No Known Allergies (Unverified , 04/14/16) Medication History Scheduled Aspirin* (Aspirin*), 81 MG GT DAILY, (Reported) Atorvastatin Calcium* (Atorvastatin Calcium*), 40 MG GT BEDTIME, (Reported) Famotidine (Famotidine), 20 MG GT DAILY, (Reported) Insulin Lispro (Humalog), Unknown Dose SUBQ Q6HR, (Reported) Levothyroxine Sodium* (Synthroid*), 50 MCG GT DAILY, (Reported) Metoclopramide Hcl* (Metoclopramide Hcl*), 10 MG GT NEEDED, (Reported) Midodrine* (Proamatine*), 10 MG GT THREE TIMES A DAY, (Reported) Sevelamer Carbonate* (Renvela*), 1,600 MG GT THREE TIMES A DAY, (Reported) Vitamin B Cmplx/Vit C/Folic AC (Nephro-Micah Tablet), 1 TAB GT DAILY, (Reported) Zinc Sulfate (Zinc Sulfate), 220 MG GT DAILY, (Reported) Scheduled PRN Acetaminophen (Acetaminophen), 650 MG GT Q6HR PRN for Mild Pain (Pain Scale 1-3) , (Reported) Insulin Regular, Human (Humulin R), 20 UNITS SUBQ Q12HR PRN for Sliding Scale, ( Reported) Discontinued Medications Cefepime Hcl (Maxipime), 2 GM IV Q12HR, (Reported) Discontinued Reason: Pt stopped taking med Cefepime Hcl/Dextrose, Iso-Osm (Cefepime 1 Gm Injection), 1 GM IV EVERY 12 HOURS , (Reported) Discontinued Reason: Pt stopped taking med Donepezil Hcl* (Aricept*), 10 MG GT DAILY, (Reported) Discontinued Reason: Pt stopped taking med Donepezil Hcl* (Aricept*), 10 MG ORAL DAILY, (Reported) Discontinued Reason: Pt stopped taking med Insulin Detemir (Levemir), 40 UNITS SUBQ EVERY 12 HOURS, (Reported) Discontinued Reason: Pt stopped taking med Insulin Detemir (Levemir), 0 SUBQ BID, (Reported) Discontinued Reason: Pt stopped taking med Magnesium Oxide (Magnesium Oxide), 400 MG GT DAILY, (Reported) Discontinued Reason: MD discontinued med Magnesium Oxide (Magnesium Oxide), 400 MG ORAL DAILY, (Reported) Discontinued Reason: Pt stopped taking med Multivitamin (Multi Vitamin Daily), 1 TAB ORAL DAILY, (Reported) Discontinued Reason: Pt stopped taking med Multivitamins* (Multivitamins*), 1 TAB GT DAILY, (Reported) Discontinued Reason: Pt stopped taking med Nitroglycerin (Nitroglycerin), 0.4 MG SL every 5 mins, (Reported) Discontinued Reason: Pt stopped taking med Phosphorus (Phospha 250 Neutral Tablet), 500 MG GT TID, (Reported) Discontinued Reason: Pt stopped taking med Vancomycin Hcl/D5w (Vancomycin-D5w 1 G/250 Ml), 1.25 GM IVPB Q12HR, (Reported) Discontinued Reason: Pt stopped taking med Past Medical/Surgical History: (1) Hyperglycemia (2) Sepsis (3) Fever (4) Diabetes (5) Renal insufficiency (6) G-tube site cellulitis (7) History of CVA (cerebrovascular accident) (8) Aspiration pneumonia (9) snf resident ROS Constitutional: Reports: malaise ENT: Denies: no symptoms, see HPI, ear pain, ear discharge, nose pain, nose congestion, throat pain, throat swelling, mouth pain, hearing loss, nasal discharge, other Respiratory: Reports: orthopnea, shortness of breath Cardiovascular: Reports: edema, PND Musculoskeletal: Reports: muscle stiffness Physical Exam General Appearance: confused, mild distress Neck: supple, trach Respiratory/Chest: decreased breath sounds, rhonchi - bilaterally Abdomen: normal bowel sounds, feeding tube Extremities: non-tender Last 24 Hour Vital Signs Date Time Temp Pulse Resp B/P (MAP) Pulse Ox O2 Delivery O2 Flow Rate FiO2 04/21/18 16:00 99.4 89 18 106/55 (72) 100 04/21/18 16:00 90 04/21/18 16:00 T-piece 6.0 04/21/18 16:00 6.0 28 04/21/18 12:47 T-piece 6.0 28 04/21/18 12:47 100 T-piece 6.0 28 04/21/18 12:00 T-piece 6.0 04/21/18 12:00 94 04/21/18 12:00 6.0 28 04/21/18 12:00 98.4 86 18 108/74 (85) 100 04/21/18 11:22 104 18 99 04/21/18 08:00 100 04/21/18 08:00 T-piece 6.0 04/21/18 08:00 98.0 104 18 113/64 (80) 99 04/21/18 08:00 6.0 28 04/21/18 07:36 100 T-piece 6.0 28 04/21/18 07:36 T-piece 6.0 28 04/21/18 04:00 T-piece 6.0 04/21/18 04:00 6.0 04/21/18 04:00 97.3 103 16 140/89 (106) 100 04/21/18 03:45 100 04/21/18 01:05 T-piece 6.0 28 04/21/18 00:00 T-piece 6.0 04/21/18 00:00 97.2 81 16 115/68 (84) 100 04/21/18 00:00 6.0 04/20/18 23:59 81 Current Medications Medications (Trade) Dose Ordered Sig/Xochilt Route PRN Reason Start Time Stop Time Status Last Admin Dose Admin Acetaminophen (Tylenol) 650 mg Q6H PRN GT Mild Pain (Pain Scale 1-3) 04/20/18 15:00 05/20/18 14:59 Atorvastatin Calcium (Lipitor) 40 mg BEDTIME GT 04/20/18 21:00 05/20/18 20:59 04/20/18 21:36 Cefepime HCl 1 gm/ Dextrose 50 ml @ 100 mls/hr Q24HRS IVPB 04/20/18 23:00 04/27/18 22:59 Dextrose (Dextrose 50%) 25 ml Q30M PRN IV Hypoglycemia 04/20/18 15:00 05/20/18 14:59 Dextrose (Dextrose 50%) 50 ml Q30M PRN IV Hypoglycemia 04/20/18 15:00 05/20/18 14:59 Insulin Aspart (NovoLOG) Q6HR SUBQ 04/20/18 18:00 05/20/18 17:59 04/21/18 18:00 Insulin Human Regular (NovoLIN R) 20 units Q12HR PRN SUBQ Sliding Scale 04/20/18 15:00 05/20/18 14:59 UNV Lansoprazole (Prevacid) 30 mg DAILY GT 04/21/18 09:00 05/21/18 08:59 04/21/18 08:55 Levothyroxine Sodium (Synthroid) 50 mcg DAILY GT 04/21/18 09:00 05/21/18 08:59 04/21/18 08:54 Metoclopramide HCl (Reglan) 10 mg NEEDED GT 04/20/18 15:00 05/20/18 14:59 UNV Metronidazole 100 ml @ 100 mls/hr Q8HR IVPB 04/20/18 23:15 04/27/18 23:14 04/21/18 14:28 Midodrine (Pro-Amatine) 10 mg THREE TIMES A DAY GT 04/20/18 18:00 05/20/18 17:59 04/21/18 17:35 Polyethylene Glycol/ Electrolytes (Nulytely) 4,000 ml ONCE ORAL 04/21/18 16:00 04/21/18 23:59 04/21/18 17:33 Sevelamer Carbonate (Renvela) 1,600 mg THREE TIMES A DAY GT 04/20/18 18:00 05/20/18 17:59 04/21/18 17:35 Vancomycin HCl (Vanco rx to dose) 1 ea DAILY PRN MISC Per rx protocol 04/20/18 23:00 05/20/18 22:59 Vitamin B Complex/ Vit C/Folic Acid (Nephrovite) 1 tab DAILY GT 04/20/18 15:00 05/20/18 14:59 04/21/18 08:55 Zinc Sulfate (Zinc Sulfate) 220 mg DAILY GT 04/21/18 09:00 05/21/18 08:59 04/21/18 08:54 Laboratory Tests Test 04/20/18 23:00 04/21/18 02:30 04/21/18 03:00 Urine Color Yodit Urine Appearance Cloudy Urine pH 5 (4.5-8.0) Urine Specific [place] 1.010 (1.005-1.035) Urine Protein 3+ (NEGATIVE) H Urine Glucose (UA) Negative (NEGATIVE) Urine Ketones 1+ (NEGATIVE) H Urine Blood 4+ (NEGATIVE) H Urine Nitrite Positive (NEGATIVE) H Urine Bilirubin 1+ (NEGATIVE) H Urine Ictotest Positive (NEGATIVE) Urine Urobilinogen Normal MG/DL (0.0-1.0) Urine Leukocyte Esterase 3+ (NEGATIVE) H Urine RBC Tntc /HPF (0 - 0) H Urine WBC Tntc /HPF (0 - 0) H Urine Squamous Epithelial Cells None /LPF (NONE/OCC) Urine Bacteria Many /HPF (NONE) H Urine Yeast Moderate /HPF (NONE) H Stool Occult Blood Positive (NEGATIVE) White Blood Count 12.9 K/UL (4.8-10.8) H Red Blood Count 2.26 M/UL (4.70-6.10) L Hemoglobin 7.1 G/DL (14.2-18.0) L Hematocrit 20.1 % (42.0-52.0) L Mean Corpuscular Volume 89 FL (80-99) Mean Corpuscular Hemoglobin 31.3 PG (27.0-31.0) H Mean Corpuscular Hemoglobin Concent 35.1 G/DL (32.0-36.0) Red Cell Distribution Width 14.8 % (11.6-14.8) Platelet Count 259 K/UL (150-450) Mean Platelet Volume 6.6 FL (6.5-10.1) Neutrophils (%) (Auto) % (45.0-75.0) Lymphocytes (%) (Auto) % (20.0-45.0) Monocytes (%) (Auto) % (1.0-10.0) Eosinophils (%) (Auto) % (0.0-3.0) Basophils (%) (Auto) % (0.0-2.0) Differential Total Cells Counted 100 Neutrophils % (Manual) 70 % (45-75) Lymphocytes % (Manual) 22 % (20-45) Monocytes % (Manual) 4 % (1-10) Eosinophils % (Manual) 1 % (0-3) Basophils % (Manual) 0 % (0-2) Band Neutrophils 3 % (0-8) Platelet Estimate Adequate Platelet Morphology Normal Red Blood Cell Morphology Normal Reticulocyte Count 1.7 % (0.0-2.0) Prothrombin Time 10.7 SEC (9.30-11.50) Prothromb Time International Ratio 1.0 (0.9-1.1) Activated Partial Thromboplast Time 44 SEC (23-33) H Sodium Level 135 MMOL/L (136-145) L Potassium Level 3.4 MMOL/L (3.5-5.1) L Chloride Level 97 MMOL/L (98-107) L Carbon Dioxide Level 25 MMOL/L (21-32) Anion Gap 13 mmol/L (5-15) Blood Urea Nitrogen 68 mg/dL (7-18) H Creatinine 4.1 MG/DL (0.55-1.30) H Estimat Glomerular Filtration Rate 14.6 mL/min (>60) Glucose Level 114 MG/DL (74-106) H Calcium Level 8.8 MG/DL (8.5-10.1) Magnesium Level 2.5 MG/DL (1.8-2.4) H Iron Level 52 ug/dL (50-175) Total Iron Binding Capacity 229 ug/dL (250-450) L Percent Iron Saturation 23 % (15-50) Unsaturated Iron Binding 177 ug/dL (112-346) Ferritin 927 NG/ML (8-388) H Total Bilirubin 0.3 MG/DL (0.2-1.0) Aspartate Amino Transf (AST/SGOT) 22 U/L (15-37) Alanine Aminotransferase (ALT/SGPT) 17 U/L (12-78) Alkaline Phosphatase 111 U/L (46-116) Total Protein 7.7 G/DL (6.4-8.2) Albumin 3.0 G/DL (3.4-5.0) L Globulin 4.7 g/dL Albumin/Globulin Ratio 0.6 (1.0-2.7) L Carcinoembryonic Antigen Pending Vitamin B12 Level 936 PG/ML (193-986) Folate 61.7 NG/ML (8.6-58.9) H Thyroid Stimulating Hormone (TSH) 0.773 uiU/mL (0.358-3.740) Free Thyroxine 1.12 NG/DL (0.76-1.46) Assessment and Recommendations: # Anemia of chronic disease -- anemia panel has been reviewed, was ordered on this admission --> a panel consistent with acd --> continue on epogen given esrd as per renal dosing, adjustment as needed --> no hemolysis is noted --> iron repleted --> EGD colonoscopy scheduled for tomorrow. --> Hold all blood thinners tonight # Leukocytosis source is unknown --> as per ID, on vanc, cefepime, flagyl, adjust as per id --> trend patient's wbc --> if doesn't resolve, consider further bone marrow investigations # Heel sore --> will asses with wound care, cont nutrition and off loading # Encephalopathy --> potentiall related to infection --> source yet unknown # Dysphagia as late effect of cerebrovascular accident (CVA) --> On tube feeds # Diabetes --> Follow blood sugars with sliding scale # History of CVA (cerebrovascular accident) # Sepsis - ID eval requested, will need abx therapy The timing of this note does not necessarily reflect the time of the patient was seen. Greatly appreciate consultation! Frederick Jones MD Apr 21, 2018 20:08
--- NOTE | 2018-04-21 20:18 | Infectious Diseases Prog Note ---
Assessment/Plan Assessment/Plan Full consult dictated; A) 1) sepsis, leukocytosis, uti, + ua, chest x-ray - negative 2) trach, no vent 3) esrd, hd 4) pmh noted P) 1) vancomycin, cefepime and flagyl 2) f/u on cultures, monitor labs 3) orders entered 4) will f/u Subjective Constitutional: Reports: other - + trach, no vent ; Denies: fever HEENT: Denies: congestion Respiratory: Denies: shortness of breath Gastrointestinal/Abdominal: Denies: nausea, vomiting, diarrhea Genitourinary: Reports: other - + marquis Allergies: Coded Allergies: No Known Allergies (Unverified , 04/14/16) Objective Vital Signs Last 24 Hour Vital Signs Date Time Temp Pulse Resp B/P (MAP) Pulse Ox O2 Delivery O2 Flow Rate FiO2 04/21/18 16:00 99.4 89 18 106/55 (72) 100 04/21/18 16:00 90 04/21/18 16:00 T-piece 6.0 04/21/18 16:00 6.0 28 04/21/18 12:47 T-piece 6.0 28 04/21/18 12:47 100 T-piece 6.0 28 04/21/18 12:00 T-piece 6.0 04/21/18 12:00 94 04/21/18 12:00 6.0 28 04/21/18 12:00 98.4 86 18 108/74 (85) 100 04/21/18 11:22 104 18 99 04/21/18 08:00 100 04/21/18 08:00 T-piece 6.0 04/21/18 08:00 98.0 104 18 113/64 (80) 99 04/21/18 08:00 6.0 28 04/21/18 07:36 100 T-piece 6.0 28 04/21/18 07:36 T-piece 6.0 28 04/21/18 04:00 T-piece 6.0 04/21/18 04:00 6.0 04/21/18 04:00 97.3 103 16 140/89 (106) 100 04/21/18 03:45 100 04/21/18 01:05 T-piece 6.0 28 04/21/18 00:00 T-piece 6.0 04/21/18 00:00 97.2 81 16 115/68 (84) 100 04/21/18 00:00 6.0 04/20/18 23:59 81 Height (Feet): 5 Height (Inches): 5.00 Weight (Pounds): 150 General Appearance: no acute distress HEENT: normocephalic, atraumatic, anicteric, mucous membranes moist Respiratory/Chest: lungs clear, normal breath sounds, no respiratory distress Cardiovascular: normal rate, regular rhythm Abdomen: normal bowel sounds, soft, non tender, no organomegaly Microbiology Date/Time Source Procedure Growth Status 04/20/18 23:00 Sputum Induced Gram Stain - Final Resulted 04/20/18 23:00 Sputum Induced Sputum Culture - Preliminary NO GROWTH Resulted Laboratory Tests Test 04/20/18 23:00 04/21/18 02:30 04/21/18 03:00 Urine Color Yodit Urine Appearance Cloudy Urine pH 5 (4.5-8.0) Urine Specific [place] 1.010 (1.005-1.035) Urine Protein 3+ (NEGATIVE) H Urine Glucose (UA) Negative (NEGATIVE) Urine Ketones 1+ (NEGATIVE) H Urine Blood 4+ (NEGATIVE) H Urine Nitrite Positive (NEGATIVE) H Urine Bilirubin 1+ (NEGATIVE) H Urine Ictotest Positive (NEGATIVE) Urine Urobilinogen Normal MG/DL (0.0-1.0) Urine Leukocyte Esterase 3+ (NEGATIVE) H Urine RBC Tntc /HPF (0 - 0) H Urine WBC Tntc /HPF (0 - 0) H Urine Squamous Epithelial Cells None /LPF (NONE/OCC) Urine Bacteria Many /HPF (NONE) H Urine Yeast Moderate /HPF (NONE) H Stool Occult Blood Positive (NEGATIVE) White Blood Count 12.9 K/UL (4.8-10.8) H Red Blood Count 2.26 M/UL (4.70-6.10) L Hemoglobin 7.1 G/DL (14.2-18.0) L Hematocrit 20.1 % (42.0-52.0) L Mean Corpuscular Volume 89 FL (80-99) Mean Corpuscular Hemoglobin 31.3 PG (27.0-31.0) H Mean Corpuscular Hemoglobin Concent 35.1 G/DL (32.0-36.0) Red Cell Distribution Width 14.8 % (11.6-14.8) Platelet Count 259 K/UL (150-450) Mean Platelet Volume 6.6 FL (6.5-10.1) Neutrophils (%) (Auto) % (45.0-75.0) Lymphocytes (%) (Auto) % (20.0-45.0) Monocytes (%) (Auto) % (1.0-10.0) Eosinophils (%) (Auto) % (0.0-3.0) Basophils (%) (Auto) % (0.0-2.0) Differential Total Cells Counted 100 Neutrophils % (Manual) 70 % (45-75) Lymphocytes % (Manual) 22 % (20-45) Monocytes % (Manual) 4 % (1-10) Eosinophils % (Manual) 1 % (0-3) Basophils % (Manual) 0 % (0-2) Band Neutrophils 3 % (0-8) Platelet Estimate Adequate Platelet Morphology Normal Red Blood Cell Morphology Normal Reticulocyte Count 1.7 % (0.0-2.0) Prothrombin Time 10.7 SEC (9.30-11.50) Prothromb Time International Ratio 1.0 (0.9-1.1) Activated Partial Thromboplast Time 44 SEC (23-33) H Sodium Level 135 MMOL/L (136-145) L Potassium Level 3.4 MMOL/L (3.5-5.1) L Chloride Level 97 MMOL/L (98-107) L Carbon Dioxide Level 25 MMOL/L (21-32) Anion Gap 13 mmol/L (5-15) Blood Urea Nitrogen 68 mg/dL (7-18) H Creatinine 4.1 MG/DL (0.55-1.30) H Estimat Glomerular Filtration Rate 14.6 mL/min (>60) Glucose Level 114 MG/DL (74-106) H Calcium Level 8.8 MG/DL (8.5-10.1) Magnesium Level 2.5 MG/DL (1.8-2.4) H Iron Level 52 ug/dL (50-175) Total Iron Binding Capacity 229 ug/dL (250-450) L Percent Iron Saturation 23 % (15-50) Unsaturated Iron Binding 177 ug/dL (112-346) Ferritin 927 NG/ML (8-388) H Total Bilirubin 0.3 MG/DL (0.2-1.0) Aspartate Amino Transf (AST/SGOT) 22 U/L (15-37) Alanine Aminotransferase (ALT/SGPT) 17 U/L (12-78) Alkaline Phosphatase 111 U/L (46-116) Total Protein 7.7 G/DL (6.4-8.2) Albumin 3.0 G/DL (3.4-5.0) L Globulin 4.7 g/dL Albumin/Globulin Ratio 0.6 (1.0-2.7) L Carcinoembryonic Antigen Pending Vitamin B12 Level 936 PG/ML (193-986) Folate 61.7 NG/ML (8.6-58.9) H Thyroid Stimulating Hormone (TSH) 0.773 uiU/mL (0.358-3.740) Free Thyroxine 1.12 NG/DL (0.76-1.46) Current Medications Medications (Trade) Dose Ordered Sig/Xochilt Route PRN Reason Start Time Stop Time Status Last Admin Dose Admin Acetaminophen (Tylenol) 650 mg Q6H PRN GT Mild Pain (Pain Scale 1-3) 04/20/18 15:00 05/20/18 14:59 Atorvastatin Calcium (Lipitor) 40 mg BEDTIME GT 04/20/18 21:00 05/20/18 20:59 04/20/18 21:36 Cefepime HCl 1 gm/ Dextrose 50 ml @ 100 mls/hr Q24HRS IVPB 04/20/18 23:00 04/27/18 22:59 Dextrose (Dextrose 50%) 25 ml Q30M PRN IV Hypoglycemia 04/20/18 15:00 05/20/18 14:59 Dextrose (Dextrose 50%) 50 ml Q30M PRN IV Hypoglycemia 04/20/18 15:00 05/20/18 14:59 Insulin Aspart (NovoLOG) Q6HR SUBQ 04/20/18 18:00 05/20/18 17:59 04/21/18 18:00 Insulin Human Regular (NovoLIN R) 20 units Q12HR PRN SUBQ Sliding Scale 04/20/18 15:00 05/20/18 14:59 UNV Lansoprazole (Prevacid) 30 mg DAILY GT 04/21/18 09:00 05/21/18 08:59 04/21/18 08:55 Levothyroxine Sodium (Synthroid) 50 mcg DAILY GT 04/21/18 09:00 05/21/18 08:59 04/21/18 08:54 Metoclopramide HCl (Reglan) 10 mg NEEDED GT 04/20/18 15:00 05/20/18 14:59 UNV Metronidazole 100 ml @ 100 mls/hr Q8HR IVPB 04/20/18 23:15 04/27/18 23:14 04/21/18 14:28 Midodrine (Pro-Amatine) 10 mg THREE TIMES A DAY GT 04/20/18 18:00 05/20/18 17:59 04/21/18 17:35 Polyethylene Glycol/ Electrolytes (Nulytely) 4,000 ml ONCE ORAL 04/21/18 16:00 04/21/18 23:59 04/21/18 17:33 Sevelamer Carbonate (Renvela) 1,600 mg THREE TIMES A DAY GT 04/20/18 18:00 05/20/18 17:59 04/21/18 17:35 Vancomycin HCl (Vanco rx to dose) 1 ea DAILY PRN MISC Per rx protocol 04/20/18 23:00 05/20/18 22:59 Vitamin B Complex/ Vit C/Folic Acid (Nephrovite) 1 tab DAILY GT 04/20/18 15:00 05/20/18 14:59 04/21/18 08:55 Zinc Sulfate (Zinc Sulfate) 220 mg DAILY GT 04/21/18 09:00 05/21/18 08:59 04/21/18 08:54 Denys Samson MD Apr 21, 2018 20:18
[2018-04-21] MEDS: Atorvastatin 20mg tab GT SCH (20:53)
--- NOTE | 2018-04-21 22:00 | NUR ---
NURSE NOTES: 20g IV unsuccessful, no other access available. janitor caretaker aware and attempted.
--- NOTE | 2018-04-21 23:10 | Physician Query ---
--------- THIS DOCUMENT IS A PERMANENT PART OF THE MEDICAL RECORD --------- PLEASE COMPLETE DOCUMENT BEFORE SIGNING Dear __JL MARTINEZ Date: __04/21/18__ Industrial Maintenance Manager/CDS Name: __Cristiana GUZMAN_ Industrial Maintenance Manager / CDS Phone # Exercise your independent professional judgment when responding to query. Question asked do not imply a particular answer is desired/expected. Clinical Documentation States: "ENCEPHALOPATHY, SEPSIS" documented in H&P "SEPSIS, UTI" - dicumented in Dr. Armstrong PN on 04/21/18 Clinical Findings Show: WBC = 22.0, 12.9 UA = ESTERASE 3+, WBC TNTC, MANY BACTERIA Please indicate the nature and chronicity of the condition below: [] Metabolic Encephalopathy [] Toxic Encephalopathy [] Toxic - Metabolic Encephalopathy [] Progressive Encephalopathy [] Encephalopathy, Other [] Other: [] Not Applicable Severity [] Acute [] Chronic [] Acute on Chronic [] Unable to determine Condition Present on Admission: [] Yes [] No []Clinically Undeterminable Please also document in your Progress Notes and/or Discharge Summary and indicate if the condition was present on admission. JL MARTINEZ M.D. DATE & TIME [facility]
[2018-04-22] VITALS (10 sets, daily range): BP systolic 101–150; BP diastolic 6–78
--- NOTE | 2018-04-22 01:00 | NUR ---
NURSE NOTES: Started 1 unit of PRBCs. Will continue to monitor.
--- NOTE | 2018-04-22 01:15 | NUR ---
NURSE NOTES: No transfusion reaction noted. Will continue to monitor and follow plan of care.
--- NOTE | 2018-04-22 02:00 | Consultation ---
DATE OF CONSULTATION: 04/21/2018 INFECTIOUS DISEASES CONSULTATION CONSULTING PHYSICIAN: Denys Samson M.D. ATTENDING PHYSICIAN: Demarco Griffin M.D. REFERRING PHYSICIAN: Demarco Griffin M.D. REASON FOR CONSULTATION: Sepsis, leukocytosis, SIRS criteria, UTI, and possible sacral wound infection. CHIEF COMPLAINT: The patient's chief complaint coming into the hospital is end-stage renal disease, anemia, and elevated white count. HISTORY OF PRESENT ILLNESS: This is a 67-year-old male, who comes in to [facility] who has end-stage renal disease. The patient was planned to have a left arm AV fistula creation because of end-stage renal disease and is status post that. The patient did have an elevated white count of 22,000. I saw the patient yesterday and put him on empiric antibiotics including vancomycin, cefepime, and Flagyl. Cultures are pending. His urinalysis was positive with too many to count white blood cells and 3+ leukocyte esterase. Urine culture is pending at this time. Blood cultures are pending. Chest x-ray was negative. Infectious Disease consultation is requested for antibiotic management of this patient with elevated white count, possible sepsis, and SIRS criteria. The patient will be continued on vancomycin, cefepime, and Flagyl pending workup. The patient does have a sacral wound also. MAR was noted. Orders were noted. Notes were reviewed. Case was discussed with RN. PAST MEDICAL HISTORY: The patient has past medical history of the following. The patient has a past medical history of chronic respiratory failure, history of G-tube, history of trach, currently is not on a vent; history of renal dialysis and end-stage renal disease, history of dysphagia, G-tube; history of hypertensive heart disease, history of anemia, history of ulcers in the sacral area; history of supplemental O2, history of GERD, dementia, diabetes type 2, hypothyroidism, hypertension, and cerebral infarction or CVA. ALLERGIES: No known drug allergies. No antibiotic allergies. SOCIAL HISTORY: Negative for smoking, alcohol, or drug abuse. FAMILY HISTORY: Noncontributory per the records. There is no mention of exposure to tuberculosis or cancer. MEDICATIONS: Upon reviewing the MAR, he is on following medications. He has been given vancomycin, cefepime, and Flagyl. He is on levothyroxine, zinc sulfate, and . He is on atorvastatin. He is on midodrine, sevelamer, insulin, and acetaminophen. He is on metoclopramide. He is on vitamin B. Outside medications noted and reconciliated. REVIEW OF SYSTEMS: CONSTITUTIONAL: The patient has generalized fatigue. He opens his eyes. He has a trach, but not on a vent. He has a Zimmerman. HEAD AND NECK: He has a trach. CARDIAC: Blood pressure. GASTROINTESTINAL: No nausea, vomiting, or diarrhea. GENITOURINARY: He has a Zimmerman. PULMONARY: Mild cough and congestion, but no secretions noted. SKIN: Wounds were noted. NEUROLOGIC: No seizures. Denies fatigue, weakness. No fevers. No pressors. PHYSICAL EXAMINATION: VITAL SIGNS: Temperature 98.4 degrees, pulse rate 89, respiratory rate 18, blood pressure 106/55, and saturation 100%. The patient is on a T-piece, no vent. He is not on pressors. GENERAL: Actually opens his eyes, but essentially nonverbal. HEAD AND NECK: Oral exam, no thrush. Eye exam, no icterus. Normocephalic. He has a trach, intact. Neck is supple. No JVD. HEART: Regular. No obvious gallop or murmur. No friction rub. ABDOMEN: Soft. Positive bowel sounds. Nontender. He has a G-tube. LUNGS: Few bilateral rhonchi. There are no definite rales or crackles. SKIN: Sacral wound was noted, is not acutely infected. MUSCULOSKELETAL: No effusion. Legs are without cellulitis. PERIPHERAL VASCULAR: No gangrene. GENITOURINARY: He has a Zimmerman. Urine is cloudy. LINES: Line sites without phlebitis. NEUROLOGIC: Generalized weakness, opens his eyes, but nonverbal. LABORATORY AND DIAGNOSTIC DATA: Laboratory data as follows, UA had positive nitrite, 3+ leukocyte esterase, and too many to count white blood cells. Creatinine is 4.1. LFTs noted. White count on admission 22.0. White count now is 12.9 and hemoglobin 7.1. Platelet count 259. Cultures, blood and urine cultures pending. Sputum culture is negative. Chest x-ray shows no evidence of pneumonia is noted and reviewed. ASSESSMENT AND PLAN: 1. The patient has possible sepsis. It looks like he does have sepsis and SIRS criteria. Most likely source is urinary tract infection. Chest x-ray is negative for pneumonia. The patient has a positive urinalysis. Continue empiric antibiotics of vancomycin, cefepime, and Flagyl for what looks like UTI and sepsis and leukocytosis and SIRS criteria. Continue antibiotics of vancomycin for MRSA coverage, cefepime for Gram-negative coverage, and anaerobic coverage with Flagyl. Check cultures and labs. Again, chest x-ray is negative. With regard to these sacral wounds, does not look like acutely infected and does not look as a source of sepsis. Continue wound care protocol. 2. The patient is status post AV fistula for end-stage renal disease, which requires hemodialysis. 3. Anemia. 4. Skin care protocol. 5. Chronic kidney disease and end-stage renal disease. 6. History of hypertension. 7. Diabetes. 8. History of cerebral infarction. 9. Chronic respiratory failure, on trach. No vent. 10. Dysphagia, G-tube. 11. Hypertensive heart disease. 12. Anemia. 13. GERD. 14. Hypothyroidism. 15. Past medical history noted. 16. No known drug allergies. 17. Social history is negative. 18. Family history is noncontributory. 19. MAR was noted. 20. Case was discussed with RN. 21. Continue treatment per primary consultants. 22. Notes and records were noted. 23. Orders were entered. Denys Samson M.D. DR: ALISON JOB#: [id number] CC:
--- NOTE | 2018-04-22 03:00 | NUR ---
NURSE NOTES: Second unit of PRBCs started. Will monitor.
--- NOTE | 2018-04-22 03:15 | NUR ---
NURSE NOTES: No transfusion reaction noted. Will continue to monitor and follow with plan of care.
[2018-04-22] MEDS: NovoLOG Insulin Flexpen SUBQ SCH ×4 (05:45→23:03)
[2018-04-22 07:16] LABS: BASOPHILS % (AUTO) 0.7 % (0.0-2.0); EOSINOPHILS % (AUTO) 3.5 % (0.0-3.0); HEMATOCRIT 29.2 % (42.0-52.0); HEMOGLOBIN 10.1 G/DL (14.2-18.0); LYMPHOCYTES % (AUTO) 15.9 % (20.0-45.0); MEAN CORPUSCULAR VOLUME 90 FL (80-99); MONOCYTES % (AUTO) 8.5 % (1.0-10.0); NEUTROPHILS % (AUTO) 71.4 % (45.0-75.0); PLATELET COUNT 262 K/UL (150-450); RED BLOOD COUNT 3.24 M/UL (4.70-6.10); RED CELL DISTRIBUTION WIDTH 13.6 % (11.6-14.8); WHITE BLOOD COUNT 13.6 K/UL (4.8-10.8)
--- NOTE | 2018-04-22 07:17 | NUR ---
HAND-OFF: Report given to AMBROSE You.
[2018-04-22 07:33] LABS: ANION GAP 14 mmol/L (5-15); BLOOD UREA NITROGEN 57 mg/dL (7-18); CALCIUM 9.2 MG/DL (8.5-10.1); CARBON DIOXIDE 26 MMOL/L (21-32); CHLORIDE 100 MMOL/L (98-107); CREATININE 4.6 MG/DL (0.55-1.30); SODIUM 140 MMOL/L (136-145)
--- NOTE | 2018-04-22 07:40 | NUR ---
NURSE NOTES: Received patient from AMBROSE Erickson. Patient awake, opens eyes spontaneously, nonverbal, unable to follow commands. T-piece Portex 8, 6L, Fio2 28%, sating 98%. SR noted on the cardiac tech. Gtube intact, NPO for EDG/colonoscopy today. Rectal tube intact, draining clear bloody brown color liquid bm. condom cath intact. Heals off loading. Right hand 22G, intact and patent, asymptomatic. pt noted with left arm AV shunt and right subclavian permacath, dressing intact, clean and dry. Bed is locked in lowest position, side rails x3, call saenz within reach, bed alarm on. Will continue to monitor and follow plan of care.
[2018-04-22] MEDS: Renvela 800mg Pkt GT SCH ×3 (09:00→17:17)
[2018-04-22] MEDS: Midodrine 10mg tab GT SCH ×3 (09:00→17:17)
[2018-04-22] MEDS: Zinc Sulfate 220mg cap GT SCH (09:00)
[2018-04-22] MEDS: Nephrovite tab (Rena-Vite) GT SCH (09:00)
--- NOTE | 2018-04-22 10:15 | Anethesia Preoperative Eval ---
Anesthesia Pre-op PMH/ROS General Date of Evaluation: Apr 22, 2018 Time of Evaluation: 10:12 Anesthesiologist: Zonia ASA Score: ASA 4 Mallampati Score Class I : Soft palate, uvula, fauces, pillars visible Class II: Soft palate, uvula, fauces visible Class III: Soft palate, base of uvula visible Class IV: Only hard plate visible Mallampati Classification: Class III Surgeon: Hussain Diagnosis: Anemia Surgical Procedure: EGD Colonioscopy Anesthesia History: none Family History: no anesthesia problems Allergies: Coded Allergies: No Known Allergies (Unverified , 04/14/16) Medications: see eMAR Patient NPO?: Yes NPO Date: Apr 19, 2018 NPO Time: 17:00 Past Medical History Cardiovascular: Reports: HTN; Denies: CAD, NM, valve dz, arrhythmia, other Pulmonary: Reports: other - Respiratory failure; Denies: asthma, COPD, DENNIS Gastrointestinal/Genitourinary: Reports: other - Dysphagia PEG in place Neurologic/Psychiatric: Reports: dementia, CVA; Denies: depression/anxiety, TIA, other Endocrine: Reports: DM, hypothyroidism; Denies: steroids, other HEENT: Denies: cataract (L), cataract (R), glaucoma, STILLAGUAMISH (L), STILLAGUAMISH (R), other Hematology/Immune: Reports: anemia; Denies: DVT, bleeding disorder, other Musculoskeletal/Integumentary: Reports: other - contracted; Denies: OA, RA, DJD, DDD, edema Other: other - malnourished PMH Narrative: as above PSxH Narrative: See H&P Anesthesia Pre-op Phys. Exam Physician Exam Last Vital Signs Date Time Temp Pulse Resp B/P (MAP) Pulse Ox O2 Delivery O2 Flow Rate FiO2 04/22/18 08:00 6.0 28 04/22/18 08:00 82 04/22/18 08:00 T-piece 04/22/18 08:00 98.0 22 112/67 (82) 100 Constitutional: NAD Neurologic: other - unable to obtaine Cardiovascular: RRR Respiratory: CTA Gastrointestinal: S/NT/ND - trcheostomy in pllace Airway Exam Mallampati Score: Class III MO: limited Neck: stiff ROM: limited Teeth: missing, broken Dentures: no upper, no lower Anesthesia Pre-op A/P Labs Hematology Test 04/22/18 07:00 White Blood Count 13.6 K/UL (4.8-10.8) H Red Blood Count 3.24 M/UL (4.70-6.10) L Hemoglobin 10.1 G/DL (14.2-18.0) #L Hematocrit 29.2 % (42.0-52.0) #L Mean Corpuscular Volume 90 FL (80-99) Mean Corpuscular Hemoglobin 31.1 PG (27.0-31.0) H Mean Corpuscular Hemoglobin Concent 34.4 G/DL (32.0-36.0) Red Cell Distribution Width 13.6 % (11.6-14.8) Platelet Count 262 K/UL (150-450) Mean Platelet Volume 6.6 FL (6.5-10.1) Neutrophils (%) (Auto) 71.4 % (45.0-75.0) Lymphocytes (%) (Auto) 15.9 % (20.0-45.0) L Monocytes (%) (Auto) 8.5 % (1.0-10.0) Eosinophils (%) (Auto) 3.5 % (0.0-3.0) H Basophils (%) (Auto) 0.7 % (0.0-2.0) Coagulation Test 04/22/18 07:00 Prothrombin Time 10.4 SEC (9.30-11.50) Prothromb Time International Ratio 1.0 (0.9-1.1) Activated Partial Thromboplast Time 28 SEC (23-33) Chemistry Test 04/22/18 07:00 Sodium Level 140 MMOL/L (136-145) Potassium Level 3.0 MMOL/L (3.5-5.1) L Chloride Level 100 MMOL/L (98-107) Carbon Dioxide Level 26 MMOL/L (21-32) Anion Gap 14 mmol/L (5-15) Blood Urea Nitrogen 57 mg/dL (7-18) H Creatinine 4.6 MG/DL (0.55-1.30) H Estimat Glomerular Filtration Rate 12.8 mL/min (>60) Glucose Level 117 MG/DL (74-106) H Calcium Level 9.2 MG/DL (8.5-10.1) Shon Brar MD Apr 22, 2018 10:15
--- NOTE | 2018-04-22 10:26 | Pre-Procedure Note/Attestation ---
Pre-Procedure Note/Attestation Complete Prior to Procedure Planned Procedure: not applicable Procedure Narrative: esophagogastroduodenoscopy and colonoscopy Indications for Procedure Pre-Operative Diagnosis: gib Attestation I attest that I discussed the nature of the procedure; its benefits; risks and complications; and alternatives (and the risks and benefits of such alternatives ), prior to the procedure, with the patient (or the patient's legal insurance follow up representative). I attest that, if there was a reasonable possibility of needing a blood transfusion, the patient (or the patient's legal insurance follow up representative) was given the [facility] standardized written summary, pursuant to the Robert Sid Blood Safety Act ([place] Health and Safety Code # 1645, as amended). I attest that I re-evaluated the patient just prior to the surgery and that there has been no change in the patient's H&P, except as documented below: Juan Nixon MD Apr 22, 2018 10:26
[2018-04-22] MEDS ORDERED: NS 500ML IVPB ONE (10:30)
[2018-04-22] MEDS ORDERED: Propofol 200mg/20ml IV ONE (10:30)
[2018-04-22] MEDS ORDERED: fentaNYL 100 mcg/2 mL IV ONE (10:30)
--- NOTE | 2018-04-22 10:32 | NUR ---
NURSE NOTES: patient off the unit for GI procedure, pt in stable condition.
--- NOTE | 2018-04-22 10:36 | Nephrology Progress Note ---
Assessment/Plan Problem List: (1) Heel sore Assessment: -cont wound care, cont nutrition and off loading (2) Encephalopathy Assessment: -chronic, stable (3) Anemia Assessment: -s/p transfusions. -GI procedure today -PPI -epogen with HD as indicated (4) Dysphagia as late effect of cerebrovascular accident (CVA) Assessment: -hold tube feeds per GI (5) Diabetes Assessment: -Follow blood sugars with sliding scale (6) History of CVA (cerebrovascular accident) (7) Sepsis Assessment: -ID wrote for broad spect abx -f/u cultures -wbc count better Subjective Subjective pt. seen and examined going to get colo/egd by GI today taken off ASA s/p hd yesterday d/w rn at bedside ngtube clamped appreciate gi and ID eval, wbc count improved no distress Objective Objective Last 24 Hour Vital Signs Date Time Temp Pulse Resp B/P (MAP) Pulse Ox O2 Delivery O2 Flow Rate FiO2 04/22/18 08:00 6.0 28 04/22/18 08:00 82 04/22/18 08:00 T-piece 6.0 04/22/18 08:00 98.0 81 22 112/67 (82) 100 04/22/18 07:02 T-piece 6.0 28 04/22/18 07:01 98 T-piece 6.0 28 04/22/18 04:00 6.0 30 04/22/18 04:00 83 04/22/18 04:00 97.9 85 24 101/59 (73) 100 04/22/18 04:00 T-piece 6.0 04/22/18 01:13 98 T-piece 6.0 28 04/22/18 01:13 T-piece 6.0 28 04/22/18 00:00 98.4 85 20 104/60 (75) 100 04/22/18 00:00 T-piece 6.0 04/22/18 00:00 87 04/21/18 20:00 98.4 86 18 102/59 (73) 100 04/21/18 20:00 6.0 28 04/21/18 20:00 86 04/21/18 20:00 98 T-piece 6.0 28 04/21/18 20:00 T-piece 6.0 04/21/18 20:00 T-piece 6.0 28 04/21/18 16:00 99.4 89 18 106/55 (72) 100 04/21/18 16:00 90 04/21/18 16:00 T-piece 6.0 04/21/18 16:00 6.0 28 04/21/18 12:47 T-piece 6.0 28 04/21/18 12:47 100 T-piece 6.0 28 04/21/18 12:00 T-piece 6.0 04/21/18 12:00 94 04/21/18 12:00 6.0 28 04/21/18 12:00 98.4 86 18 108/74 (85) 100 04/21/18 11:22 104 18 99 Intake and Output 04/21/18 04/22/18 19:00 07:00 Intake Total 2225 ml 1840 ml Output Total 101 ml 1100 ml Balance 2124 ml 740 ml Intake Free Water 150 ml 40 ml IV Total 250 ml Tube Feeding 515 ml 90 ml Blood Product 500 ml Other 1560 ml 960 ml Output Urine Total 100 ml Stool Total 1 ml 1100 ml # Voids 1 # Bowel Movements 1 2 Laboratory Tests 04/22/18 07:00: White Blood Count 13.6H, Red Blood Count 3.24L, Hemoglobin 10.1#L, Hematocrit 29.2#L, Mean Corpuscular Volume 90, Mean Corpuscular Hemoglobin 31.1H, Mean Corpuscular Hemoglobin Concent 34.4, Red Cell Distribution Width 13.6, Platelet Count 262, Mean Platelet Volume 6.6, Neutrophils (%) (Auto) 71.4, Lymphocytes (% ) (Auto) 15.9L, Monocytes (%) (Auto) 8.5, Eosinophils (%) (Auto) 3.5H, Basophils (%) (Auto) 0.7, Prothrombin Time 10.4, Prothromb Time International Ratio 1.0, Activated Partial Thromboplast Time 28, Sodium Level 140, Potassium Level 3.0L, Chloride Level 100, Carbon Dioxide Level 26, Anion Gap 14, Blood Urea Nitrogen 57H, Creatinine 4.6H, Estimat Glomerular Filtration Rate 12.8, Glucose Level 117H, Calcium Level 9.2, Random Vancomycin Level 27.2 Height (Feet): 5 Height (Inches): 4.00 Weight (Pounds): 136 Demarco Griffin M.D.b 6, 2019 10:36
[2018-04-22] MEDS ORDERED: fentaNYL 100 mcg/2 mL IV PRN (11:00)
--- NOTE | 2018-04-22 11:10 | Endoscopy Procedure Note ---
Endoscopy Procedure Note General Indication for Procedure: gib Procedures Performed: EGD, colonoscopy Operative Findings/Diagnosis: segmental colitis Specimen: yes Pt Tolerated Procedure Well: Yes Estimated Blood Loss: none Anesthesia Anesthesiologist: dennys Anesthesia: MAC Inserted Devices Implant(s) used?: No Quality Quality of Bowel Preparation: Good Did scope reach the cecum?: Yes Was there any complications?: No GI Core Measures 50 yrs or older w/o bx or poly: Not Applicable 10yrs. F/U not recommended: Not Applicable Juan Nixon MD Apr 22, 2018 11:10
--- NOTE | 2018-04-22 11:19 | Immediate Post-Op Evaluation ---
Immediate Post-Op Evalulation Immediate Post-Op Evalulation Procedure: EGD Colonoscopy Date of Evaluation: Apr 22, 2018 Time of Evaluation: 11:18 IV Fluids: 150 Blood Products: none Estimated Blood Loss: none Urinary Output: none Blood Pressure Systolic: 146 Blood Pressure Diastolic: 74 Pulse Rate: 68 Respiratory Rate: 24 O2 Sat by Pulse Oximetry: 99 Temperature (Fahrenheit): 97.6 Pain Score (1-10): 1 Nausea: No Vomiting: No Complications none Patient Status: reacts, patent, none Hydration Status: adequate Shon Brar MD Apr 22, 2018 11:19
--- NOTE | 2018-04-22 11:49 | General Progress Note ---
Assessment/Plan Assessment/Plan Assessment and Recommendations: # Anemia of chronic disease -- anemia panel has been reviewed, was ordered on this admission --> a panel consistent with acd. Ferritin 927 --> continue on epogen given esrd as per renal dosing, adjustment as needed --> no hemolysis is noted --> iron repleted --> EGD colonoscopy done 04/22/18 --> Hold all blood thinners tonight # Leukocytosis source is unknown --> as per ID, on vanc, cefepime, flagyl, adjust as per id --> trend patient's wbc --> if doesn't resolve, consider further bone marrow investigations # Heel sore --> will asses with wound care, cont nutrition and off loading # Encephalopathy --> potentiall related to infection --> source yet unknown # Dysphagia as late effect of cerebrovascular accident (CVA) --> On tube feeds # Diabetes --> Follow blood sugars with sliding scale # History of CVA (cerebrovascular accident) # Sepsis - ID eval requested, will need abx therapy The timing of this note does not necessarily reflect the time of the patient was seen. Greatly appreciate consultation! Subjective ROS Limited/Unobtainable: Yes Allergies: Coded Allergies: No Known Allergies (Unverified , 04/14/16) Subjective 04/22: seen by bedside, resting, nonverbal, had EGD Colonoscopy done today, Ferritin 927 Objective Last 24 Hour Vital Signs Date Time Temp Pulse Resp B/P (MAP) Pulse Ox O2 Delivery O2 Flow Rate FiO2 04/22/18 11:19 68 24 99 04/22/18 11:16 97.2 80 20 146/78 96 Trach Collar 6 04/22/18 08:00 6.0 28 04/22/18 08:00 82 04/22/18 08:00 T-piece 6.0 04/22/18 08:00 98.0 81 22 112/67 (82) 100 04/22/18 07:02 T-piece 6.0 28 04/22/18 07:01 98 T-piece 6.0 28 04/22/18 04:00 6.0 30 04/22/18 04:00 83 04/22/18 04:00 97.9 85 24 101/59 (73) 100 04/22/18 04:00 T-piece 6.0 04/22/18 01:13 98 T-piece 6.0 28 04/22/18 01:13 T-piece 6.0 28 04/22/18 00:00 98.4 85 20 104/60 (75) 100 04/22/18 00:00 T-piece 6.0 04/22/18 00:00 87 04/21/18 20:00 98.4 86 18 102/59 (73) 100 04/21/18 20:00 6.0 28 04/21/18 20:00 86 04/21/18 20:00 98 T-piece 6.0 28 04/21/18 20:00 T-piece 6.0 04/21/18 20:00 T-piece 6.0 28 04/21/18 16:00 99.4 89 18 106/55 (72) 100 04/21/18 16:00 90 04/21/18 16:00 T-piece 6.0 04/21/18 16:00 6.0 28 04/21/18 12:47 T-piece 6.0 28 04/21/18 12:47 100 T-piece 6.0 28 04/21/18 12:00 T-piece 6.0 04/21/18 12:00 94 04/21/18 12:00 6.0 28 04/21/18 12:00 98.4 86 18 108/74 (85) 100 Intake and Output 04/21/18 04/22/18 19:00 07:00 Intake Total 2225 ml 1840 ml Output Total 101 ml 1100 ml Balance 2124 ml 740 ml Intake Free Water 150 ml 40 ml IV Total 250 ml Tube Feeding 515 ml 90 ml Blood Product 500 ml Other 1560 ml 960 ml Output Urine Total 100 ml Stool Total 1 ml 1100 ml # Voids 1 # Bowel Movements 1 2 Laboratory Tests 04/22/18 07:00: White Blood Count 13.6H, Red Blood Count 3.24L, Hemoglobin 10.1#L, Hematocrit 29.2#L, Mean Corpuscular Volume 90, Mean Corpuscular Hemoglobin 31.1H, Mean Corpuscular Hemoglobin Concent 34.4, Red Cell Distribution Width 13.6, Platelet Count 262, Mean Platelet Volume 6.6, Neutrophils (%) (Auto) 71.4, Lymphocytes (% ) (Auto) 15.9L, Monocytes (%) (Auto) 8.5, Eosinophils (%) (Auto) 3.5H, Basophils (%) (Auto) 0.7, Prothrombin Time 10.4, Prothromb Time International Ratio 1.0, Activated Partial Thromboplast Time 28, Sodium Level 140, Potassium Level 3.0L, Chloride Level 100, Carbon Dioxide Level 26, Anion Gap 14, Blood Urea Nitrogen 57H, Creatinine 4.6H, Estimat Glomerular Filtration Rate 12.8, Glucose Level 117H, Calcium Level 9.2, Random Vancomycin Level 27.2 Height (Feet): 5 Height (Inches): 4.00 Weight (Pounds): 136 Objective Physical Exam General Appearance: confused, mild distress Neck: supple, trach Respiratory/Chest: decreased breath sounds, rhonchi - bilaterally Abdomen: normal bowel sounds, feeding tube Extremities: non-tend Frederick Jones MD Apr 22, 2018 11:49
--- NOTE | 2018-04-22 11:50 | NUR ---
NURSE NOTES: called [facility] and informed HD order for tomorrow
--- NOTE | 2018-04-22 11:50 | General Progress Note ---
Assessment/Plan Problem List: (1) Anemia ICD Codes: D64.9 - Anemia, unspecified SNOMED: 037313775 Qualifiers: (2) Renal insufficiency ICD Codes: N28.9 - Disorder of kidney and ureter, unspecified SNOMED: 791944577 (3) Diabetes ICD Codes: E11.9 - Type 2 diabetes mellitus without complications SNOMED: 55095968 (4) Gastrostomy tube dependent ICD Codes: Z93.1 - Gastrostomy status SNOMED: 896579836, 433543314 Assessment/Plan s/p EGD and colonoscopy focal colitis, ? ischemic vs embolic, VS malignancy fu biopsy results resume GTF CEA monitor H&H Subjective ROS Limited/Unobtainable: No Allergies: Coded Allergies: No Known Allergies (Unverified , 04/14/16) Objective Last 24 Hour Vital Signs Date Time Temp Pulse Resp B/P (MAP) Pulse Ox O2 Delivery O2 Flow Rate FiO2 04/22/18 11:19 68 24 99 04/22/18 11:16 97.2 80 20 146/78 96 Trach Collar 6 04/22/18 08:00 6.0 28 04/22/18 08:00 82 04/22/18 08:00 T-piece 6.0 04/22/18 08:00 98.0 81 22 112/67 (82) 100 04/22/18 07:02 T-piece 6.0 28 04/22/18 07:01 98 T-piece 6.0 28 04/22/18 04:00 6.0 30 04/22/18 04:00 83 04/22/18 04:00 97.9 85 24 101/59 (73) 100 04/22/18 04:00 T-piece 6.0 04/22/18 01:13 98 T-piece 6.0 28 04/22/18 01:13 T-piece 6.0 28 04/22/18 00:00 98.4 85 20 104/60 (75) 100 04/22/18 00:00 T-piece 6.0 04/22/18 00:00 87 04/21/18 20:00 98.4 86 18 102/59 (73) 100 04/21/18 20:00 6.0 28 04/21/18 20:00 86 04/21/18 20:00 98 T-piece 6.0 28 04/21/18 20:00 T-piece 6.0 04/21/18 20:00 T-piece 6.0 28 04/21/18 16:00 99.4 89 18 106/55 (72) 100 04/21/18 16:00 90 04/21/18 16:00 T-piece 6.0 04/21/18 16:00 6.0 28 04/21/18 12:47 T-piece 6.0 28 04/21/18 12:47 100 T-piece 6.0 28 04/21/18 12:00 T-piece 6.0 04/21/18 12:00 94 04/21/18 12:00 6.0 28 04/21/18 12:00 98.4 86 18 108/74 (85) 100 Intake and Output 04/21/18 04/22/18 19:00 07:00 Intake Total 2225 ml 1840 ml Output Total 101 ml 1100 ml Balance 2124 ml 740 ml Intake Free Water 150 ml 40 ml IV Total 250 ml Tube Feeding 515 ml 90 ml Blood Product 500 ml Other 1560 ml 960 ml Output Urine Total 100 ml Stool Total 1 ml 1100 ml # Voids 1 # Bowel Movements 1 2 Laboratory Tests 04/22/18 07:00: White Blood Count 13.6H, Red Blood Count 3.24L, Hemoglobin 10.1#L, Hematocrit 29.2#L, Mean Corpuscular Volume 90, Mean Corpuscular Hemoglobin 31.1H, Mean Corpuscular Hemoglobin Concent 34.4, Red Cell Distribution Width 13.6, Platelet Count 262, Mean Platelet Volume 6.6, Neutrophils (%) (Auto) 71.4, Lymphocytes (% ) (Auto) 15.9L, Monocytes (%) (Auto) 8.5, Eosinophils (%) (Auto) 3.5H, Basophils (%) (Auto) 0.7, Prothrombin Time 10.4, Prothromb Time International Ratio 1.0, Activated Partial Thromboplast Time 28, Sodium Level 140, Potassium Level 3.0L, Chloride Level 100, Carbon Dioxide Level 26, Anion Gap 14, Blood Urea Nitrogen 57H, Creatinine 4.6H, Estimat Glomerular Filtration Rate 12.8, Glucose Level 117H, Calcium Level 9.2, Random Vancomycin Level 27.2 Height (Feet): 5 Height (Inches): 4.00 Weight (Pounds): 136 General Appearance: lethargic EENT: normal ENT inspection Neck: supple Cardiovascular: normal rate Respiratory/Chest: decreased breath sounds Abdomen: normal bowel sounds, non tender, soft Extremities: non-tender Juan Nixon MD Apr 22, 2018 11:50
--- NOTE | 2018-04-22 12:10 | NUR ---
NURSE NOTES: Patient back in the room from GI procedure, rectal tube was dc'd. VSS. pt in stable condition. pt's son at bedside.
--- NOTE | 2018-04-22 15:06 | NUR ---
NURSE NOTES: patient resting in bed, no acute distress, VSS. pt tolerating tube feeding, 5ml residual noted. HOB elevated.
[2018-04-22] MEDS ORDERED: NS 275ml ONE (15:21)
[2018-04-22] MEDS ORDERED: Tubing IV Secondary IV ONE (15:21)
[2018-04-22] MEDS ORDERED: Tubing Blood Filter IV ONE (15:21)
--- NOTE | 2018-04-22 16:15 | NUR ---
NURSE NOTES: Left a message to PMD that GI recommended surgical consult, awaiting for call back.
--- NOTE | 2018-04-22 18:00 | Procedure Note ---
DATE OF PROCEDURE: 04/22/2018 SURGEON: Juan Nixon M.D. PROCEDURE: Upper endoscopy and colonoscopy with biopsy and tattooing. ANESTHESIA: Per Shon Brar M.D. INSTRUMENT: Olympus adult flexible upper endoscope and colonoscope. INDICATIONS: Anemia and GI bleeding. REASON FOR PROCEDURE: The procedure, risks, benefits, and possible consequences, including hemorrhage, aspiration, perforation and infection, and alternative treatments, were explained to the patient/legal guardian by Dr. Juan Nixon and the patient/legal guardian understood and accepted these risks. PROCEDURE IN DETAIL: After informed consent was obtained and the patient was adequately sedated, Olympus upper endoscope was advanced from the mouth into the second portion of the duodenum and retroflexion was performed in the stomach. The patient had diffuse gastritis. Random biopsy from antrum was obtained to rule out H. pylori infection. The patient had a G-tube in place without any bleeding around the G-tube site. At this time, the upper endoscope was retrieved. The patient was turned over for colonoscopy. First, rectal exam was performed, which was normal. Then, the scope was ileocecal valve was. Then, we did did not advance the scope into the cecum. The patient has evidence of severe ulcerative colitis in the ascending colon about 6 to 7 cm from the anal verge. This area was circumferentially also relieved, actively oozing blood, inflamed. Differential diagnosis would be ischemic colitis, but it was very focal and circumferential infectious. Again, also unusual given this localized versus malignancy. Biopsy from this area was obtained and the most distal part of this area was tattooed for future references. The patient had one or two diverticula in the left colon. Retroflexion rectum showed evidence of internal hemorrhoids. FINDINGS: 1. Gastritis, status post biopsy. 2. Segmental colitis in the right colon, status post biopsy and tattoo. 3. Diverticulosis, 1 or 2 diverticula in the left colon. 4. Internal hemorrhoids. RECOMMENDATIONS: Follow up biopsy results. Monitor hemoglobin and hematocrit. Transfuse as needed. The patient depending on the biopsy results, we decided it is hard to manage this patient. I would like to thank you Dr. Demarco Griffin for this kind referral. Juan Nixon M.D. DR: MAK JOB#: [id number] CC:
--- NOTE | 2018-04-22 18:55 | NUR ---
TRANSFER TO FLOOR: Patient transferred to [facility]. Report given to AMBROSE Linares. Belongings and medications given to primary RN. pt's son informed of transfer.
[2018-04-22] MEDS ORDERED: Acetaminophen 650mg/20.3ml GT PRN (19:00)
--- NOTE | 2018-04-22 19:03 | NUR ---
NURSE NOTES: Received patient from Álvaro from [facility]. Patient is non-verbal,bed bound.Patient is with Trach with Fio2 28% with 6L. GT intact, dressing intact, no residual, on pressure releasing mattress and heels are floated to off the load. IV intact, no s/s of infiltration. no s/s of pain or discomfort per FLACC pain scale. Belongings was checked by two RN. Bed is in lowest position and locked. Left arm precaution with AV shunt, surgical site noted with no bleeding or s/s of infection. Will continue plan of care.
--- NOTE | 2018-04-22 19:18 | NUR ---
HAND-OFF: Report given to Vicky and endorsed to take wound picture.
--- NOTE | 2018-04-22 19:30 | NUR ---
NURSE NOTES: Patient awake in bed, non verbal. Will take wound pictures later. Instructed the use of call light. Call light and needs in reach. Bed in lowest position, lock engaged and alarm on. Will continue to monitor.
[2018-04-22] MEDS: Atorvastatin 20mg tab GT SCH (20:49)
[2018-04-22] MEDS: Dyna-Hex 2% Top Sol 2oz TOPIC SCH (22:31)
--- NOTE | 2018-04-22 22:53 | NUR ---
NURSE NOTES: Photos taken and uploaded. Dressings changed.
[2018-04-23] VITALS: BP 104/56
[2018-04-23 04:00] VITALS: BP 136/80
[2018-04-23] MEDS: NovoLOG Insulin Flexpen SUBQ SCH ×3 (06:00→18:23)
[2018-04-23 08:00] VITALS: BP 118/57
--- NOTE | 2018-04-23 08:10 | NUR ---
NURSE NOTES: received report from AMBROSE Perry. patient in bed. alert, no respiratory distress noted. no c/o pain at this time. bed in the lowest position. call light in reach. bed alsrm on. will continue to monitor.
[2018-04-23 08:25] LABS: BASOPHILS % (AUTO) 0.7 % (0.0-2.0); EOSINOPHILS % (AUTO) 3.1 % (0.0-3.0); HEMOGLOBIN 11.7 G/DL (14.2-18.0); LYMPHOCYTES % (AUTO) 17.6 % (20.0-45.0); MEAN CORPUSCULAR VOLUME 92 FL (80-99); MONOCYTES % (AUTO) 6.3 % (1.0-10.0); NEUTROPHILS % (AUTO) 72.4 % (45.0-75.0); PLATELET COUNT 297 K/UL (150-450); RED BLOOD COUNT 3.71 M/UL (4.70-6.10); RED CELL DISTRIBUTION WIDTH 14.1 % (11.6-14.8); WHITE BLOOD COUNT 12.3 K/UL (4.8-10.8)
[2018-04-23 08:34] LABS: ANION GAP 12 mmol/L (5-15); BLOOD UREA NITROGEN 60 mg/dL (7-18); CALCIUM 9.2 MG/DL (8.5-10.1); CARBON DIOXIDE 25 MMOL/L (21-32); CHLORIDE 101 MMOL/L (98-107); CREATININE 5.1 MG/DL (0.55-1.30); POTASSIUM 3.3 MMOL/L (3.5-5.1); SODIUM 138 MMOL/L (136-145)
--- NOTE | 2018-04-23 08:59 | 48 Hour Post Anesthesia Eval ---
Post Anesthesia Evaluation Procedure: EGD Colonoscopy Date of Evaluation: Apr 23, 2018 Time of Evaluation: 08:57 Blood Pressure Systolic: 116 0: 75 Pulse Rate: 68 Respiratory Rate: 20 Temperature (Fahrenheit): 97.6 O2 Sat by Pulse Oximetry: 98 Airway: patent, other - tracheostomy in place Nausea: No Vomiting: No Pain Intensity: 2 Hydration Status: adequate Cardiopulmonary Status: stable Mental Status/LOC: patient returned to baseline Follow-up Care/Observations: n/a Post-Anesthesia Complications: none Follow-up care needed: N/A Shon Brar MD Apr 23, 2018 08:59
[2018-04-23] MEDS: Nephrovite tab (Rena-Vite) GT SCH (09:26)
[2018-04-23] MEDS: Zinc Sulfate 220mg cap GT SCH (09:26)
[2018-04-23] MEDS: Midodrine 10mg tab GT SCH ×3 (09:26→17:47)
[2018-04-23] MEDS: Renvela 800mg Pkt GT SCH ×3 (09:27→17:47)
[2018-04-23] MEDS: Meropenem 500 MG in NS 55 ML IVPB SCH (11:20)
[2018-04-23 12:00] VITALS: BP 112/67
--- NOTE | 2018-04-23 12:01 | GI Progress Note ---
Assessment/Plan Problems: (1) GI bleed ICD Codes: K92.2 - Gastrointestinal hemorrhage, unspecified SNOMED: 13269940 (2) Sepsis ICD Codes: A41.9 - Sepsis, unspecified organism SNOMED: 02929781 (3) Gastrostomy tube dependent ICD Codes: Z93.1 - Gastrostomy status SNOMED: 832754088, 716997228 (4) Dehydration ICD Codes: E86.0 - Dehydration SNOMED: 59022534 (5) Dysphagia as late effect of cerebrovascular accident (CVA) ICD Codes: I69.391 - Dysphagia following cerebral infarction SNOMED: 127282237 (6) Anemia ICD Codes: D64.9 - Anemia, unspecified SNOMED: 828528775 Qualifiers: Status: unchanged Status Narrative Discussed with Dr. Nixon Assessment/Plan FINDINGS: 1. Gastritis, status post biopsy. 2. Segmental colitis in the right colon, status post biopsy and tattoo. 3. Diverticulosis, 1 or 2 diverticula in the left colon. 4. Internal hemorrhoids. Focal colitis, ischemic versus embolic RECOMMENDATIONS: May need surgical consultation Follow up biopsy results. Monitor hemoglobin and hematocrit. Transfuse as needed. The patient depending on the biopsy results, we decided it is hard to manage this patient. PRN transfusions PPI Follow labs The patient was seen and examined at bedside and all new and available data was reviewed in the patients chart. I agree with the above findings, impression and plan. (Patient seen earlier today. Signature stamp does not reflect patient encounter time.). - Juan Nixon MD Subjective Subjective Limited Objective Last 24 Hour Vital Signs Date Time Temp Pulse Resp B/P (MAP) Pulse Ox O2 Delivery O2 Flow Rate FiO2 04/23/18 09:00 T-piece 6.0 04/23/18 08:59 68 20 98 04/23/18 08:20 T-piece 6.0 28 04/23/18 08:20 99 T-piece 6.0 28 04/23/18 08:00 97.7 77 19 118/57 (77) 94 04/23/18 04:00 98.0 77 19 136/80 (98) 100 04/23/18 01:28 T-piece 6.0 28 04/23/18 01:28 99 T-piece 6.0 28 04/23/18 00:00 97.7 74 18 104/56 (72) 98 04/22/18 21:00 T-piece 6.0 04/22/18 20:00 98.7 72 19 129/66 (87) 98 04/22/18 18:47 T-piece 6.0 28 04/22/18 18:47 99 T-piece 6.0 28 04/22/18 16:00 6.0 28 04/22/18 16:00 T-piece 6.0 04/22/18 16:00 68 04/22/18 16:00 98.2 72 23 116/68 (84) 99 04/22/18 12:15 98.1 82 21 115/67 (83) 98 04/22/18 12:07 T-piece 6.0 28 04/22/18 12:00 75 04/22/18 12:00 T-piece 6.0 04/22/18 12:00 99 T-piece 6.0 28 04/22/18 12:00 6.0 28 04/22/18 12:00 97.6 79 19 150/71 96 Trach Collar 6 Intake and Output 04/22/18 04/23/18 19:00 07:00 Intake Total 470 ml 560 ml Output Total 80 ml 500 ml Balance 390 ml 60 ml Intake Oral 0 ml Free Water 180 ml 150 ml IV Total 150 ml 150 ml Tube Feeding 140 ml 260 ml Output Urine Total 500 ml Stool Total 80 ml # Bowel Movements 1 2 Laboratory Tests Test 04/23/18 07:36 White Blood Count 12.3 K/UL (4.8-10.8) H Red Blood Count 3.71 M/UL (4.70-6.10) L Hemoglobin 11.7 G/DL (14.2-18.0) L Hematocrit 34.0 % (42.0-52.0) L Mean Corpuscular Volume 92 FL (80-99) Mean Corpuscular Hemoglobin 31.5 PG (27.0-31.0) H Mean Corpuscular Hemoglobin Concent 34.4 G/DL (32.0-36.0) Red Cell Distribution Width 14.1 % (11.6-14.8) Platelet Count 297 K/UL (150-450) Mean Platelet Volume 6.7 FL (6.5-10.1) Neutrophils (%) (Auto) 72.4 % (45.0-75.0) Lymphocytes (%) (Auto) 17.6 % (20.0-45.0) L Monocytes (%) (Auto) 6.3 % (1.0-10.0) Eosinophils (%) (Auto) 3.1 % (0.0-3.0) H Basophils (%) (Auto) 0.7 % (0.0-2.0) Sodium Level 138 MMOL/L (136-145) Potassium Level 3.3 MMOL/L (3.5-5.1) L Chloride Level 101 MMOL/L (98-107) Carbon Dioxide Level 25 MMOL/L (21-32) Anion Gap 12 mmol/L (5-15) Blood Urea Nitrogen 60 mg/dL (7-18) H Creatinine 5.1 MG/DL (0.55-1.30) H Estimat Glomerular Filtration Rate 11.4 mL/min (>60) Glucose Level 130 MG/DL (74-106) H Calcium Level 9.2 MG/DL (8.5-10.1) Carcinoembryonic Antigen Pending Height (Feet): 5 Height (Inches): 4.00 Weight (Pounds): 136 General Appearance: no apparent distress Cardiovascular: normal rate Respiratory/Chest: normal breath sounds, no respiratory distress Abdominal Exam: normal bowel sounds, non tender, soft, GT site - Clean dry and intact Extremities: non-tender Objective Rectal bleeding reported by the Hair Bell NP Apr 23, 2018 12:01
--- NOTE | 2018-04-23 14:43 | Infectious Diseases Prog Note ---
Assessment/Plan Assessment/Plan ASSESSMENT AND PLAN: 1. esbl e.coli uti, sepsis, ? gram neg pna vs colonization, initial chest x- ray negative, leukocytosis, doubt wounds sepsis source - meropenem for 10 days, started 04/23/18 - discontinue vancomycin - leukocytosis improved - check f/u chest x-ray, sc and labs - skin care per protocol 2. The patient is status post AV fistula for end-stage renal disease, which requires hemodialysis. 3. Anemia. 4. Skin care protocol. 5. Chronic kidney disease and end-stage renal disease. 6. History of hypertension. 7. Diabetes. 8. History of cerebral infarction. 9. Chronic respiratory failure, on trach. No vent. 10. Dysphagia, G-tube. 11. Hypertensive heart disease. 12. Anemia. 13. GERD. 14. Hypothyroidism. 15. Past medical history noted. 16. No known drug allergies. 17. Social history is negative. 18. Family history is noncontributory. 19. MAR was noted. 20. Case was discussed with RN. 21. Continue treatment per primary consultants. 22. Notes and records were noted. 23. Orders were entered. 24. vre colonization Subjective Constitutional: Reports: fatigue, other - + trach, no vent, opens eyes, non- verbal; Denies: fever HEENT: Reports: congestion Respiratory: Reports: shortness of breath Cardiovascular: Reports: other - no pressors Gastrointestinal/Abdominal: Denies: nausea, vomiting, diarrhea Genitourinary: Reports: other - + marquis Neurologic: Reports: weakness Psychiatric: Reports: other - na Skin: Denies: rash Hematologic: Denies: bleeding Musculoskeletal: Reports: other - na Allergies: Coded Allergies: No Known Allergies (Unverified , 04/14/16) Objective Vital Signs Last 24 Hour Vital Signs Date Time Temp Pulse Resp B/P (MAP) Pulse Ox O2 Delivery O2 Flow Rate FiO2 04/23/18 13:25 T-piece 6.0 28 04/23/18 13:25 99 T-piece 6.0 28 04/23/18 12:00 98.0 78 20 112/67 (82) 100 04/23/18 09:00 T-piece 6.0 04/23/18 08:59 68 20 98 04/23/18 08:20 T-piece 6.0 28 04/23/18 08:20 99 T-piece 6.0 28 04/23/18 08:00 97.7 77 19 118/57 (77) 94 04/23/18 04:00 98.0 77 19 136/80 (98) 100 04/23/18 01:28 T-piece 6.0 28 04/23/18 01:28 99 T-piece 6.0 28 04/23/18 00:00 97.7 74 18 104/56 (72) 98 04/22/18 21:00 T-piece 6.0 04/22/18 20:00 98.7 72 19 129/66 (87) 98 04/22/18 18:47 T-piece 6.0 28 04/22/18 18:47 99 T-piece 6.0 28 04/22/18 16:00 6.0 28 04/22/18 16:00 T-piece 6.0 04/22/18 16:00 68 04/22/18 16:00 98.2 72 23 116/68 (84) 99 Height (Feet): 5 Height (Inches): 4.00 Weight (Pounds): 136 General Appearance: no acute distress HEENT: normocephalic, atraumatic, anicteric, supple, no JVD, status post trach , other - trach, no vent Respiratory/Chest: lungs clear, normal breath sounds, no respiratory distress, no accessory muscle use, rhonchi - bilaterally - occ rhonchi Cardiovascular: normal rate, regular rhythm, no gallop/murmur, no JVD Abdomen: normal bowel sounds, soft, non tender, no organomegaly, non distended Genitourinary: other - + marquis - urine slt cloudy Extremities: no cyanosis Skin: no rash Neurologic/Psychiatric: motor weakness, other - opens eyes but weak Lymphatic: no neck adenopathy Musculoskeletal: no effusion Objective 04/21/18 - chest x-ray - nad, report noted Microbiology Date/Time Source Procedure Growth Status 04/20/18 15:45 Blood Blood Culture - Preliminary NO GROWTH AFTER 48 HOURS Resulted 04/20/18 23:00 Sputum Induced Gram Stain - Final Resulted 04/20/18 23:00 Sputum Culture - Preliminary Gram Negative Bacillus 1 Resulted 04/20/18 23:00 Straight Cath Urine Culture - Final Escherichia Coli - Esbl Complete 04/22/18 00:30 Ankle Right Gram Stain - Final Resulted 04/22/18 00:30 Ankle Right Wound Culture - Preliminary Resulted Microbiology Date/Time Source Procedure Growth Status 04/20/18 15:45 Blood Blood Culture - Preliminary NO GROWTH AFTER 48 HOURS Resulted 04/20/18 23:00 Sputum Induced Gram Stain - Final Resulted 04/20/18 23:00 Sputum Culture - Preliminary Gram Negative Bacillus 1 Resulted 04/20/18 23:00 Straight Cath Urine Culture - Final Escherichia Coli - Esbl Complete 04/22/18 00:30 Ankle Right Gram Stain - Final Resulted 04/22/18 00:30 Ankle Right Wound Culture - Preliminary Resulted 04/21/18 02:30 Rectum - Preliminary Resulted 04/21/18 02:30 Rectum VRE Culture - Final Enterococcus Faecium - Vre Enterococcus Faecalis - Vre Complete Laboratory Tests Test 04/23/18 07:36 White Blood Count 12.3 K/UL (4.8-10.8) H Red Blood Count 3.71 M/UL (4.70-6.10) L Hemoglobin 11.7 G/DL (14.2-18.0) L Hematocrit 34.0 % (42.0-52.0) L Mean Corpuscular Volume 92 FL (80-99) Mean Corpuscular Hemoglobin 31.5 PG (27.0-31.0) H Mean Corpuscular Hemoglobin Concent 34.4 G/DL (32.0-36.0) Red Cell Distribution Width 14.1 % (11.6-14.8) Platelet Count 297 K/UL (150-450) Mean Platelet Volume 6.7 FL (6.5-10.1) Neutrophils (%) (Auto) 72.4 % (45.0-75.0) Lymphocytes (%) (Auto) 17.6 % (20.0-45.0) L Monocytes (%) (Auto) 6.3 % (1.0-10.0) Eosinophils (%) (Auto) 3.1 % (0.0-3.0) H Basophils (%) (Auto) 0.7 % (0.0-2.0) Sodium Level 138 MMOL/L (136-145) Potassium Level 3.3 MMOL/L (3.5-5.1) L Chloride Level 101 MMOL/L (98-107) Carbon Dioxide Level 25 MMOL/L (21-32) Anion Gap 12 mmol/L (5-15) Blood Urea Nitrogen 60 mg/dL (7-18) H Creatinine 5.1 MG/DL (0.55-1.30) H Estimat Glomerular Filtration Rate 11.4 mL/min (>60) Glucose Level 130 MG/DL (74-106) H Calcium Level 9.2 MG/DL (8.5-10.1) Carcinoembryonic Antigen Pending Current Medications Medications (Trade) Dose Ordered Sig/Xochilt Route PRN Reason Start Time Stop Time Status Last Admin Dose Admin Acetaminophen (Tylenol) 650 mg Q6H PRN GT Mild Pain (Pain Scale 1-3) 04/22/18 19:00 05/20/18 18:59 Atorvastatin Calcium (Lipitor) 40 mg BEDTIME GT 04/22/18 21:00 05/20/18 20:59 04/22/18 20:49 Chlorhexidine Gluconate (Vanesa-Hex 2%) 1 applic DAILY@2000 TOPIC 04/22/18 22:00 05/22/18 21:59 04/22/18 22:31 Dextrose (Dextrose 50%) 25 ml Q30M PRN IV Hypoglycemia 04/22/18 19:00 05/20/18 14:59 Dextrose (Dextrose 50%) 50 ml Q30M PRN IV Hypoglycemia 04/22/18 19:00 05/20/18 14:59 Insulin Aspart (NovoLOG) Q6HR SUBQ 04/23/18 00:00 05/20/18 17:59 04/23/18 12:13 Lansoprazole (Prevacid) 30 mg DAILY GT 04/23/18 09:00 05/21/18 08:59 04/23/18 09:26 Levothyroxine Sodium (Synthroid) 50 mcg DAILY GT 04/23/18 09:00 05/21/18 08:59 04/23/18 09:27 Meropenem 500 mg/ Sodium Chloride 55 ml @ 110 mls/hr Q24H IVPB 04/23/18 11:00 04/28/18 10:59 04/23/18 11:20 Metoclopramide HCl (Reglan) 10 mg Q8H PRN GT GERD/ N/V 04/22/18 19:00 05/22/18 18:59 Midodrine (Pro-Amatine) 10 mg THREE TIMES A DAY GT 04/23/18 09:00 05/20/18 17:59 04/23/18 12:52 Sevelamer Carbonate (Renvela) 1,600 mg THREE TIMES A DAY GT 04/23/18 09:00 05/20/18 17:59 04/23/18 12:52 Vancomycin HCl (Vanco rx to dose) 1 ea DAILYPRN PRN MISC Per rx protocol 04/22/18 19:00 05/22/18 18:59 Vitamin B Complex/ Vit C/Folic Acid (Nephrovite) 1 tab DAILY GT 04/23/18 09:00 05/20/18 14:59 04/23/18 09:26 Zinc Sulfate (Zinc Sulfate) 220 mg DAILY GT 04/23/18 09:00 05/21/18 08:59 04/23/18 09:26 Denys Samson MD Apr 23, 2018 14:43
--- NOTE | 2018-04-23 14:50 | Nephrology Progress Note ---
Assessment/Plan Problem List: (1) Heel sore Assessment: -cont wound care, cont nutrition and off loading (2) Encephalopathy Assessment: -chronic, stable (3) Anemia Assessment: -s/p transfusions. -GI procedure noted -PPI -epogen with HD as indicated -? colitis (4) Dysphagia as late effect of cerebrovascular accident (CVA) Assessment: -resume tube feeds (5) Diabetes Assessment: -Follow blood sugars with sliding scale (6) History of CVA (cerebrovascular accident) (7) Sepsis Assessment: -ID wrote for broad spect abx -f/u cultures -wbc count better Subjective ROS Limited/Unobtainable: Yes Subjective pt. seen and examined s/p colon/egd by GI . taken off ASA on hd this am d/w rn at bedside appreciate gi and ID eval, wbc count improved on iv abx no distress Objective Objective Last 24 Hour Vital Signs Date Time Temp Pulse Resp B/P (MAP) Pulse Ox O2 Delivery O2 Flow Rate FiO2 04/23/18 13:25 T-piece 6.0 28 04/23/18 13:25 99 T-piece 6.0 28 04/23/18 12:00 98.0 78 20 112/67 (82) 100 04/23/18 09:00 T-piece 6.0 04/23/18 08:59 68 20 98 04/23/18 08:20 T-piece 6.0 28 04/23/18 08:20 99 T-piece 6.0 28 04/23/18 08:00 97.7 77 19 118/57 (77) 94 04/23/18 04:00 98.0 77 19 136/80 (98) 100 04/23/18 01:28 T-piece 6.0 28 04/23/18 01:28 99 T-piece 6.0 28 04/23/18 00:00 97.7 74 18 104/56 (72) 98 04/22/18 21:00 T-piece 6.0 04/22/18 20:00 98.7 72 19 129/66 (87) 98 04/22/18 18:47 T-piece 6.0 28 04/22/18 18:47 99 T-piece 6.0 28 04/22/18 16:00 6.0 28 04/22/18 16:00 T-piece 6.0 04/22/18 16:00 68 04/22/18 16:00 98.2 72 23 116/68 (84) 99 Intake and Output 04/22/18 04/23/18 19:00 07:00 Intake Total 470 ml 560 ml Output Total 80 ml 500 ml Balance 390 ml 60 ml Intake Oral 0 ml Free Water 180 ml 150 ml IV Total 150 ml 150 ml Tube Feeding 140 ml 260 ml Output Urine Total 500 ml Stool Total 80 ml # Bowel Movements 1 2 Laboratory Tests 04/23/18 07:36: White Blood Count 12.3H, Red Blood Count 3.71L, Hemoglobin 11.7L, Hematocrit 34.0L, Mean Corpuscular Volume 92, Mean Corpuscular Hemoglobin 31.5H, Mean Corpuscular Hemoglobin Concent 34.4, Red Cell Distribution Width 14.1, Platelet Count 297, Mean Platelet Volume 6.7, Neutrophils (%) (Auto) 72.4, Lymphocytes (% ) (Auto) 17.6L, Monocytes (%) (Auto) 6.3, Eosinophils (%) (Auto) 3.1H, Basophils (%) (Auto) 0.7, Sodium Level 138, Potassium Level 3.3L, Chloride Level 101, Carbon Dioxide Level 25, Anion Gap 12, Blood Urea Nitrogen 60H, Creatinine 5.1H, Estimat Glomerular Filtration Rate 11.4, Glucose Level 130H, Calcium Level 9.2, Carcinoembryonic Antigen [Pending] Height (Feet): 5 Height (Inches): 4.00 Weight (Pounds): 136 Demarco Griffin M.D. Apr 23, 2018 14:50
[2018-04-23 16:00] VITALS: BP 117/75
--- NOTE | 2018-04-23 17:16 | General Progress Note ---
Assessment/Plan Assessment/Plan Assessment and Recommendations: # Anemia of chronic disease -- anemia panel has been reviewed, was ordered on this admission --> a panel consistent with acd. Ferritin 927 --> continue on epogen given esrd as per renal dosing, adjustment as needed --> no hemolysis is noted --> iron repleted --> EGD colonoscopy done 04/22/18 --> Hold all blood thinners tonight # Leukocytosis source is unknown --> as per ID, on vanc, cefepime, flagyl, adjust as per id --> trend patient's wbc --> if doesn't resolve, consider further bone marrow investigations # Heel sore --> will asses with wound care, cont nutrition and off loading # Encephalopathy --> potentiall related to infection --> source yet unknown # Dysphagia as late effect of cerebrovascular accident (CVA) --> On tube feeds # Diabetes --> Follow blood sugars with sliding scale # History of CVA (cerebrovascular accident) # Sepsis - ID eval requested, will need abx therapy The timing of this note does not necessarily reflect the time of the patient was seen. Greatly appreciate consultation! Subjective Constitutional: Denies: no symptoms, chills, diaphoresis, fever, malaise, weakness, other HEENT: Denies: no symptoms, eye pain, blurred vision, tearing, double vision, ear pain, ear discharge, nose pain, nose congestion, throat pain, throat swelling, mouth pain, mouth swelling, other Cardiovascular: Denies: no symptoms, chest pain, edema, irregular heart rate, lightheadedness, palpitations, syncope, other Respiratory: Denies: no symptoms, cough, orthopnea, shortness of breath, SOB with excertion, SOB at rest, sputum, stridor, wheezing, other Gastrointestinal/Abdominal: Denies: no symptoms, abdomen distended, abdominal pain, black stools, tarry stools, blood in stool, constipated, diarrhea, difficulty swallowing, nausea, poor appetite, poor fluid intake, rectal bleeding , vomiting, other Genitourinary: Denies: no symptoms, burning, discharge, frequency, flank pain, hematuria, incontinence, pain, urgency, other Neurologic/Psychiatric: Denies: no symptoms, anxiety, depressed, emotional problems, headache, numbness, paresthesia, pre-existing deficit, seizure, tingling, tremors, weakness, other Endocrine: Denies: no symptoms, excessive sweating, flushing, intolerance to cold, intolerance to heat, increased hunger, increased thirst, increased urine, unexplained weight gain, unexplained weight loss, other Hematologic/Lymphatic: Denies: no symptoms, anemia, easy bleeding, easy bruising, other Allergies: Coded Allergies: No Known Allergies (Unverified , 04/14/16) Subjective 04/22: seen by bedside, resting, nonverbal, had EGD Colonoscopy done today, Ferritin 927 04/23: pt seen in the room, s/p colon/egd by GI, appreciate gi and ID eval, wbc count improved on iv abx Objective Last 24 Hour Vital Signs Date Time Temp Pulse Resp B/P (MAP) Pulse Ox O2 Delivery O2 Flow Rate FiO2 04/23/18 16:00 98.0 74 18 117/75 (89) 100 04/23/18 13:25 T-piece 6.0 28 04/23/18 13:25 99 T-piece 6.0 28 04/23/18 12:00 98.0 78 20 112/67 (82) 100 04/23/18 09:00 T-piece 6.0 04/23/18 08:59 68 20 98 04/23/18 08:20 T-piece 6.0 28 04/23/18 08:20 99 T-piece 6.0 28 04/23/18 08:00 97.7 77 19 118/57 (77) 94 04/23/18 04:00 98.0 77 19 136/80 (98) 100 04/23/18 01:28 T-piece 6.0 28 04/23/18 01:28 99 T-piece 6.0 28 04/23/18 00:00 97.7 74 18 104/56 (72) 98 04/22/18 21:00 T-piece 6.0 04/22/18 20:00 98.7 72 19 129/66 (87) 98 04/22/18 18:47 T-piece 6.0 28 04/22/18 18:47 99 T-piece 6.0 28 Intake and Output 04/22/18 04/23/18 19:00 07:00 Intake Total 470 ml 560 ml Output Total 80 ml 500 ml Balance 390 ml 60 ml Intake Oral 0 ml Free Water 180 ml 150 ml IV Total 150 ml 150 ml Tube Feeding 140 ml 260 ml Output Urine Total 500 ml Stool Total 80 ml # Bowel Movements 1 2 Laboratory Tests 04/23/18 07:36: White Blood Count 12.3H, Red Blood Count 3.71L, Hemoglobin 11.7L, Hematocrit 34.0L, Mean Corpuscular Volume 92, Mean Corpuscular Hemoglobin 31.5H, Mean Corpuscular Hemoglobin Concent 34.4, Red Cell Distribution Width 14.1, Platelet Count 297, Mean Platelet Volume 6.7, Neutrophils (%) (Auto) 72.4, Lymphocytes (% ) (Auto) 17.6L, Monocytes (%) (Auto) 6.3, Eosinophils (%) (Auto) 3.1H, Basophils (%) (Auto) 0.7, Sodium Level 138, Potassium Level 3.3L, Chloride Level 101, Carbon Dioxide Level 25, Anion Gap 12, Blood Urea Nitrogen 60H, Creatinine 5.1H, Estimat Glomerular Filtration Rate 11.4, Glucose Level 130H, Calcium Level 9.2, Carcinoembryonic Antigen [Pending] Height (Feet): 5 Height (Inches): 4.00 Weight (Pounds): 136 Objective Physical Exam General Appearance: confused, mild distress Neck: supple, trach Respiratory/Chest: decreased breath sounds, rhonchi - bilaterally Abdomen: normal bowel sounds, feeding tube Extremities: non-tend Frederick Jones MD Apr 23, 2018 17:16
--- NOTE | 2018-04-23 19:13 | NUR ---
HAND-OFF: Report given to AMBROSE Perry.
--- NOTE | 2018-04-23 19:38 | NUR ---
NURSE NOTES: Patient asleep in bed, trach connected to tube with O2 at 7LPM. No signs of pain. G tube connected to feeding @ 40 with goal of 55. Will adjust later. Call light and needs in reach. Bed in lowest position, lock engaged and alarm on. Will continue to monitor.
[2018-04-23 20:00] VITALS: BP 121/72
[2018-04-23] MEDS: Atorvastatin 20mg tab GT SCH (20:38)
[2018-04-23] MEDS: Dyna-Hex 2% Top Sol 2oz TOPIC SCH (20:38)
[2018-04-24] VITALS: BP 103/56
[2018-04-24] MEDS: NovoLOG Insulin Flexpen SUBQ SCH ×4 (00:13→18:37)
[2018-04-24 04:00] VITALS: BP 111/60
[2018-04-24 07:05] LABS: ANION GAP 12 mmol/L (5-15); CALCIUM 9.3 MG/DL (8.5-10.1); CARBON DIOXIDE 27 MMOL/L (21-32); CHLORIDE 101 MMOL/L (98-107); CREATININE 3.8 MG/DL (0.55-1.30); POTASSIUM 2.9 MMOL/L (3.5-5.1); SODIUM 140 MMOL/L (136-145)
[2018-04-24 07:08] LABS: BASOPHILS % (AUTO) 0.6 % (0.0-2.0); EOSINOPHILS % (AUTO) 3.9 % (0.0-3.0); HEMATOCRIT 32.9 % (42.0-52.0); HEMOGLOBIN 11.3 G/DL (14.2-18.0); LYMPHOCYTES % (AUTO) 20.1 % (20.0-45.0); MEAN CORPUSCULAR VOLUME 92 FL (80-99); MONOCYTES % (AUTO) 7.4 % (1.0-10.0); NEUTROPHILS % (AUTO) 68.1 % (45.0-75.0); PLATELET COUNT 277 K/UL (150-450); RED BLOOD COUNT 3.56 M/UL (4.70-6.10); RED CELL DISTRIBUTION WIDTH 13.8 % (11.6-14.8)
[2018-04-24 07:19] LABS: BLOOD UREA NITROGEN 37 mg/dL (7-18)
--- NOTE | 2018-04-24 07:22 | NUR ---
HAND-OFF: Report given to AMBROSE Meza.
[2018-04-24 08:00] VITALS: BP 114/60
--- NOTE | 2018-04-24 08:00 | NUR ---
NURSE NOTES: received patient in bed, bedridden, awake, with trache and T-piece, on 6L/min and suction in line. Patient received Jevity 1,2 through GTube. Patient also has R hand IV access saline locked and have R subclavian permacath. Zimmerman catheter draining to gravity. Bed locked at the lowest position possible, call light within easy reach, siderails x3. Will continue to monitor patient and follow up with the plan of care.
--- NOTE | 2018-04-24 08:48 | NUR ---
RADIOLOGY DEPT CHEST X-RAY DONE.-P.DYE
[2018-04-24] MEDS: Renvela 800mg Pkt GT SCH ×3 (09:00→18:00)
[2018-04-24] MEDS: Nephrovite tab (Rena-Vite) GT SCH (09:00)
[2018-04-24] MEDS: Zinc Sulfate 220mg cap GT SCH (09:01)
[2018-04-24] MEDS: Midodrine 10mg tab GT SCH ×3 (09:01→18:34)
[2018-04-24] MEDS ORDERED: MEROPENEM500 MG IV (10:38)
--- NOTE | 2018-04-24 10:40 | Discharge Summary ---
Discharge Summary Hospital Course Date of Admission Apr 20, 2018 at 13:51 Date of Discharge Admitting Diagnosis CONNOR Gutiérrez is a 67 year old male who was admitted on Apr 20, 2018 at 13:51 for Esrd, Anemia. folowing diagnosis were addressed during hospitalization. pt will complete meropenem x 9 more days.. (1) Heel sore Assessment: -cont wound care, cont nutrition and off loading (2) Encephalopathy Assessment: -chronic, stable (3) Anemia Assessment: -s/p transfusions. -GI procedure noted -PPI -epogen with HD as indicated -? colitis (4) Dysphagia as late effect of cerebrovascular accident (CVA) Assessment: -resume tube feeds (5) Diabetes Assessment: -Follow blood sugars with sliding scale (6) History of CVA (cerebrovascular accident) (7) Sepsis Assessment: -ID wrote for broad spect abx -f/u cultures -wbc count better Discharge Discharge Disposition Patient was discharged to Demarco Griffin M.D. Apr 24, 2018 10:40
[2018-04-24] MEDS: Meropenem 500 MG in NS 55 ML IVPB SCH (10:43)
--- NOTE | 2018-04-24 11:21 | Diagnostic Imaging Report ---
Indication: Dyspnea Comparison: 04/21/2018 A single view chest radiograph was obtained. Findings: Tracheostomy and permacath noted unchanged. There is minimal right basal atelectasis demonstrated. Heart size is normal. Gastrostomy noted. Bones are osteopenic. IMPRESSION: No acute findings. No change
--- NOTE | 2018-04-24 11:48 | NUR ---
Social Service Note SW spoke with patient's son Lowell Adkins [phone] and informed him of dc back to [facility]. Son is in agreement with dc. CM coordinator will arrange transportation.
[2018-04-24 12:00] VITALS: BP 105/65
--- NOTE | 2018-04-24 12:02 | NUR ---
*-* DISCHARGE PLANNING *-* PATIENT HAS BEEN REFERRED TO: [facility] P:[phone] F:[phone]
--- NOTE | 2018-04-24 15:24 | General Progress Note ---
Assessment/Plan Assessment/Plan Assessment and Recommendations: # Anemia of chronic disease -- anemia panel has been reviewed, was ordered on this admission --> a panel consistent with acd. Ferritin 927 --> continue on epogen given esrd as per renal dosing, adjustment as needed --> no hemolysis is noted --> iron repleted --> EGD colonoscopy done 04/22/18 and show gastritis and internal hemorrhoids --> Hold all blood thinners tonight # Leukocytosis source is unknown --> as per ID, on vanc, cefepime, flagyl, adjust as per id --> trend patient's wbc --> if doesn't resolve, consider further bone marrow investigations # Heel sore --> will asses with wound care, cont nutrition and off loading # Encephalopathy --> potentiall related to infection --> source yet unknown # Dysphagia as late effect of cerebrovascular accident (CVA) --> On tube feeds # Diabetes --> Follow blood sugars with sliding scale # History of CVA (cerebrovascular accident) # Sepsis - ID eval requested, will need abx therapy The timing of this note does not necessarily reflect the time of the patient was seen. Greatly appreciate consultation! Subjective ROS Limited/Unobtainable: Yes Allergies: Coded Allergies: No Known Allergies (Unverified , 04/14/16) Subjective 04/22: seen by bedside, resting, nonverbal, had EGD Colonoscopy done today, Ferritin 927 04/23: pt seen in the room, s/p colon/egd by GI, appreciate gi and ID eval, wbc count improved on iv abx 04/24: resting in bed, on G tube, comfortable, d/c planning, pending labs Objective Last 24 Hour Vital Signs Date Time Temp Pulse Resp B/P (MAP) Pulse Ox O2 Delivery O2 Flow Rate FiO2 04/24/18 13:49 94 T-piece 6.0 28 04/24/18 13:49 T-piece 6.0 28 04/24/18 12:00 97.9 90 18 105/65 (78) 99 04/24/18 09:40 98 T-piece 6.0 28 04/24/18 09:40 T-piece 6.0 28 04/24/18 09:00 T-piece 6.0 04/24/18 08:00 97.5 87 17 114/60 (78) 100 04/24/18 04:00 98.1 99 18 111/60 (77) 96 04/24/18 01:23 99 T-piece 6.0 28 04/24/18 01:23 T-piece 6.0 28 04/24/18 00:00 98.1 76 18 103/56 (72) 100 04/23/18 21:00 T-piece 6.0 04/23/18 20:00 97.7 74 17 121/72 (88) 100 04/23/18 19:34 T-piece 6.0 28 04/23/18 19:34 99 T-piece 6.0 28 04/23/18 16:00 98.0 74 18 117/75 (89) 100 Intake and Output 04/23/18 04/24/18 19:00 07:00 Intake Total 635 ml 840 ml Output Total 1200 ml 450 ml Balance -565 ml 390 ml Free Water 200 ml 300 ml IV Total 55 ml Tube Feeding 380 ml 540 ml Output Urine Total 200 ml 450 ml Hemodialysis UF 1000 ml # Bowel Movements 2 2 Laboratory Tests 04/24/18 06:15: White Blood Count 12.0H, Red Blood Count 3.56L, Hemoglobin 11.3L, Hematocrit 32.9L, Mean Corpuscular Volume 92, Mean Corpuscular Hemoglobin 31.7H, Mean Corpuscular Hemoglobin Concent 34.3, Red Cell Distribution Width 13.8, Platelet Count 277, Mean Platelet Volume 6.6, Neutrophils (%) (Auto) 68.1, Lymphocytes (% ) (Auto) 20.1, Monocytes (%) (Auto) 7.4, Eosinophils (%) (Auto) 3.9H, Basophils (%) (Auto) 0.6, Sodium Level 140, Potassium Level 2.9L, Chloride Level 101, Carbon Dioxide Level 27, Anion Gap 12, Blood Urea Nitrogen 37H, Creatinine 3.8H , Estimat Glomerular Filtration Rate 16.0, Glucose Level 127H, Calcium Level 9.3 04/24/18 14:50: White Blood Count [Pending], Red Blood Count [Pending], Hemoglobin [Pending], Hematocrit [Pending], Mean Corpuscular Volume [Pending], Mean Corpuscular Hemoglobin [Pending], Mean Corpuscular Hemoglobin Concent [Pending], Red Cell Distribution Width [Pending], Platelet Count [Pending], Mean Platelet Volume [ Pending], Neutrophils (%) (Auto) [Pending], Lymphocytes (%) (Auto) [Pending], Monocytes (%) (Auto) [Pending], Eosinophils (%) (Auto) [Pending], Basophils (%) (Auto) [Pending], Sodium Level [Pending], Potassium Level [Pending], Chloride Level [Pending], Carbon Dioxide Level [Pending], Blood Urea Nitrogen [Pending], Creatinine [Pending], Estimat Glomerular Filtration Rate [Pending], Glucose Level [Pending], Calcium Level [Pending], Magnesium Level [Pending] Height (Feet): 5 Height (Inches): 4.00 Weight (Pounds): 136 Objective Physical Exam General Appearance: confused, mild distress Neck: supple, trach Respiratory/Chest: decreased breath sounds, rhonchi - bilaterally Abdomen: normal bowel sounds, feeding tube Extremities: non-tend Frederick Jones MD Apr 24, 2018 15:24
--- NOTE | 2018-04-24 15:24 | NUR ---
*-* DISCHARGE PLANNED *-* [facility] ROOM# 22-B SKILLED T:[phone] FOR NURSE TO NURSE REPORT [facility] HAS BEEN ARRANGED FOR IT AUDIT MANAGER AT 1830 S/W MAYRA [phone]
[2018-04-24 15:29] LABS: ANION GAP 9 mmol/L (5-15); BLOOD UREA NITROGEN 40 mg/dL (7-18); CALCIUM 8.2 MG/DL (8.5-10.1); CARBON DIOXIDE 28 MMOL/L (21-32); CHLORIDE 100 MMOL/L (98-107); CREATININE 3.9 MG/DL (0.55-1.30); POTASSIUM 3.5 MMOL/L (3.5-5.1); SODIUM 137 MMOL/L (136-145)
[2018-04-24 15:39] LABS: BASOPHILS % (AUTO) 0.9 % (0.0-2.0); EOSINOPHILS % (AUTO) 4.1 % (0.0-3.0); HEMATOCRIT 27.4 % (42.0-52.0); HEMOGLOBIN 9.4 G/DL (14.2-18.0); LYMPHOCYTES % (AUTO) 22.7 % (20.0-45.0); MEAN CORPUSCULAR VOLUME 92 FL (80-99); MONOCYTES % (AUTO) 8.3 % (1.0-10.0); NEUTROPHILS % (AUTO) 64.1 % (45.0-75.0); PLATELET COUNT 263 K/UL (150-450); RED BLOOD COUNT 2.96 M/UL (4.70-6.10); RED CELL DISTRIBUTION WIDTH 14.1 % (11.6-14.8)
[2018-04-24 16:00] VITALS: BP_SYST 117; BP_SYST 76; BP_DIAS 60; BP_DIAS 76
--- NOTE | 2018-04-24 16:07 | GI Progress Note ---
Assessment/Plan Problems: (1) GI bleed ICD Codes: K92.2 - Gastrointestinal hemorrhage, unspecified SNOMED: 23310976 (2) Sepsis ICD Codes: A41.9 - Sepsis, unspecified organism SNOMED: 12585537 (3) Gastrostomy tube dependent ICD Codes: Z93.1 - Gastrostomy status SNOMED: 996067520, 767358504 (4) Dehydration ICD Codes: E86.0 - Dehydration SNOMED: 84310663 (5) Dysphagia as late effect of cerebrovascular accident (CVA) ICD Codes: I69.391 - Dysphagia following cerebral infarction SNOMED: 797938227 (6) Anemia ICD Codes: D64.9 - Anemia, unspecified SNOMED: 112864160 Qualifiers: Status: stable Status Narrative Discussed with Dr. Nixon. Assessment/Plan FINDINGS: 1. Gastritis, status post biopsy. 2. Segmental colitis in the right colon, status post biopsy and tattoo. 3. Diverticulosis, 1 or 2 diverticula in the left colon. 4. Internal hemorrhoids. Focal colitis, ischemic versus embolic RECOMMENDATIONS: May need surgical consultation Follow up biopsy results. Monitor hemoglobin and hematocrit. Transfuse as needed. The patient depending on the biopsy results, we decided it is hard to manage this patient. PRN transfusions PPI Follow labs The patient was seen and examined at bedside and all new and available data was reviewed in the patients chart. I agree with the above findings, impression and plan. (Patient seen earlier today. Signature stamp does not reflect patient encounter time.). - Juan Nixon MD Subjective Subjective Limited Objective Last 24 Hour Vital Signs Date Time Temp Pulse Resp B/P (MAP) Pulse Ox O2 Delivery O2 Flow Rate FiO2 04/24/18 13:49 94 T-piece 6.0 28 04/24/18 13:49 T-piece 6.0 28 04/24/18 12:00 97.9 90 18 105/65 (78) 99 04/24/18 09:40 98 T-piece 6.0 28 04/24/18 09:40 T-piece 6.0 28 04/24/18 09:00 T-piece 6.0 04/24/18 08:00 97.5 87 17 114/60 (78) 100 04/24/18 04:00 98.1 99 18 111/60 (77) 96 04/24/18 01:23 99 T-piece 6.0 28 04/24/18 01:23 T-piece 6.0 28 04/24/18 00:00 98.1 76 18 103/56 (72) 100 04/23/18 21:00 T-piece 6.0 04/23/18 20:00 97.7 74 17 121/72 (88) 100 04/23/18 19:34 T-piece 6.0 28 04/23/18 19:34 99 T-piece 6.0 28 Intake and Output 04/23/18 04/24/18 19:00 07:00 Intake Total 635 ml 840 ml Output Total 1200 ml 450 ml Balance -565 ml 390 ml Free Water 200 ml 300 ml IV Total 55 ml Tube Feeding 380 ml 540 ml Output Urine Total 200 ml 450 ml Hemodialysis UF 1000 ml # Bowel Movements 2 2 Laboratory Tests Test 04/24/18 06:15 04/24/18 14:50 White Blood Count 12.0 K/UL (4.8-10.8) H 11.0 K/UL (4.8-10.8) H Red Blood Count 3.56 M/UL (4.70-6.10) L 2.96 M/UL (4.70-6.10) L Hemoglobin 11.3 G/DL (14.2-18.0) L 9.4 G/DL (14.2-18.0) L Hematocrit 32.9 % (42.0-52.0) L 27.4 % (42.0-52.0) L Mean Corpuscular Volume 92 FL (80-99) 92 FL (80-99) Mean Corpuscular Hemoglobin 31.7 PG (27.0-31.0) H 31.6 PG (27.0-31.0) H Mean Corpuscular Hemoglobin Concent 34.3 G/DL (32.0-36.0) 34.2 G/DL (32.0-36.0) Red Cell Distribution Width 13.8 % (11.6-14.8) 14.1 % (11.6-14.8) Platelet Count 277 K/UL (150-450) 263 K/UL (150-450) Mean Platelet Volume 6.6 FL (6.5-10.1) 6.8 FL (6.5-10.1) Neutrophils (%) (Auto) 68.1 % (45.0-75.0) 64.1 % (45.0-75.0) Lymphocytes (%) (Auto) 20.1 % (20.0-45.0) 22.7 % (20.0-45.0) Monocytes (%) (Auto) 7.4 % (1.0-10.0) 8.3 % (1.0-10.0) Eosinophils (%) (Auto) 3.9 % (0.0-3.0) H 4.1 % (0.0-3.0) H Basophils (%) (Auto) 0.6 % (0.0-2.0) 0.9 % (0.0-2.0) Sodium Level 140 MMOL/L (136-145) 137 MMOL/L (136-145) Potassium Level 2.9 MMOL/L (3.5-5.1) L 3.5 MMOL/L (3.5-5.1) Chloride Level 101 MMOL/L (98-107) 100 MMOL/L (98-107) Carbon Dioxide Level 27 MMOL/L (21-32) 28 MMOL/L (21-32) Anion Gap 12 mmol/L (5-15) 9 mmol/L (5-15) Blood Urea Nitrogen 37 mg/dL (7-18) H 40 mg/dL (7-18) H Creatinine 3.8 MG/DL (0.55-1.30) H 3.9 MG/DL (0.55-1.30) H Estimat Glomerular Filtration Rate 16.0 mL/min (>60) 15.5 mL/min (>60) Glucose Level 127 MG/DL (74-106) H 139 MG/DL (74-106) H Calcium Level 9.3 MG/DL (8.5-10.1) 8.2 MG/DL (8.5-10.1) L Magnesium Level 2.0 MG/DL (1.8-2.4) Height (Feet): 5 Height (Inches): 4.00 Weight (Pounds): 136 General Appearance: WD/WN, no apparent distress, alert Cardiovascular: normal rate Respiratory/Chest: normal breath sounds, no respiratory distress Abdominal Exam: normal bowel sounds, non tender, soft Extremities: normal range of motion, non-tender Hair Ramirez NP Apr 24, 2018 16:07
--- NOTE | 2018-04-24 17:23 | NUR ---
NURSE NOTES: report given to Arcelia BOGGS from [facility]. She said the room provided is not isolation. As pt still being treated for ESBL urine, AMBROSE Paniagua told this nurse she'll call back with new room number.
--- NOTE | 2018-04-24 18:00 | NUR ---
NURSE NOTES: done dressing change on sacral, right heel and left thigh areas, taken picture and documented.
--- NOTE | 2018-04-24 18:30 | NUR ---
NURSE NOTES: not given Sevelamer as nurse stopped GT feeding. Patient is being prepared for discharge and ETA scheduled 18:30pm, but EMS called and said would be late around 45'.
--- NOTE | 2018-04-24 19:18 | NUR ---
HAND-OFF: Report given to AMBROSE Brunson.
--- NOTE | 2018-04-24 19:38 | NUR ---
NURSE NOTES: Received patient in bed, bed bound, non verbal, awaiting to be discharged to [facility], no acute distress noted, bed is in lowest position, locked and alarm is on, will ensure comfort and safety.
[2018-04-24 20:00] VITALS: BP 147/87
[2018-04-24] MEDS: Dyna-Hex 2% Top Sol 2oz TOPIC SCH (20:00)
[2018-04-24] MEDS: Atorvastatin 20mg tab GT SCH (21:00)
[2018-04-24] MEDS ORDERED: Sterile Water Irrig 1000ml IRRIG ONE (21:29)
[2018-04-24] MEDS ORDERED: Tubing IV Secondary IV ONE (21:29)
--- NOTE | 2018-04-24 21:37 | NUR ---
NURSE NOTES: Patient is discharged at 2130, transported by [facility], report is given to ambulance staff.
--- NOTE | 2018-04-27 22:54 | Physician Query ---
Deayolette Stock __JL MARTINEZ Date: __04/21/18__ Licensed Direct Entry Midwife/CDS Name: __Cristiana GUZMAN_ Licensed Direct Entry Midwife / CDS Phone # Exercise your independent professional judgment when responding to query. Question asked do not imply a particular answer is desired/expected. Clinical Documentation States: "ENCEPHALOPATHY, SEPSIS" documented in H&P "SEPSIS, UTI" - dicumented in Dr. Armstrong PN on 04/21/18 Clinical Findings Show: WBC = 22.0, 12.9 UA = ESTERASE 3+, WBC TNTC, MANY BACTERIA Please indicate the nature and chronicity of the condition below: [] Metabolic Encephalopathy [] Toxic Encephalopathy [] Toxic - Metabolic Encephalopathy [] Progressive Encephalopathy [] Encephalopathy, Other [] Other: [] Not Applicable Severity [] Acute [] Chronic [] Acute on Chronic [] Unable to determine Condition Present on Admission: [] Yes [] No []Clinically Undeterminable Please also document in your Progress Notes and/or Discharge Summary and indicate if the condition was present on admission. JL MARTINEZ M.D. DATE & [facility]
== END 2018-04-24 21:30 | DRG 853 ==
LOC: SUR 07:06 → 2W 13:51 → 4E 04-22 18:35
DX: A41.9 Sepsis, unspecified organism (principal); N18.6 End stage renal disease; G93.40 Encephalopathy, unspecified; J96.10 Chronic respiratory failure, unspecified whether with hypoxia or hypercapnia; I13.11 Hypertensive heart and chronic kidney disease without heart failure, with stage 5 chronic kidney disease, or end stage renal disease; L97.401 Non-pressure chronic ulcer of unspecified heel and midfoot limited to breakdown of skin; N39.0 Urinary tract infection, site not specified; Z86.73 Personal history of transient ischemic attack (TIA), and cerebral infarction without residual deficits; I69.991 Dysphagia following unspecified cerebrovascular disease; R13.10 Dysphagia, unspecified; Z93.1 Gastrostomy status; Z79.82 Long term (current) use of aspirin; Z79.4 Long term (current) use of insulin; E11.22 Type 2 diabetes mellitus with diabetic chronic kidney disease; D63.1 Anemia in chronic kidney disease; Z99.2 Dependence on renal dialysis; E03.9 Hypothyroidism, unspecified; K21.9 Gastro-esophageal reflux disease without esophagitis; F03.90 Unspecified dementia, unspecified severity, without behavioral disturbance, psychotic disturbance, mood disturbance, and anxiety; K52.89 Other specified noninfective gastroenteritis and colitis; K64.8 Other hemorrhoids; K57.30 Diverticulosis of large intestine without perforation or abscess without bleeding; K29.70 Gastritis, unspecified, without bleeding; I69.391 Dysphagia following cerebral infarction; E86.0 Dehydration; E87.8 Other disorders of electrolyte and fluid balance, not elsewhere classified; B96.20 Unspecified Escherichia coli [E. coli] as the cause of diseases classified elsewhere; Z16.12 Extended spectrum beta lactamase (ESBL) resistance
CPT/HCPCS: 36415; 45381; 71045; 80048; 80053; 80202; 81003; 82270; 82378; 82607; 82728; 82746; 82962; 83540; 83550; 83735; 84439; 84443; 85007; 85025; 85044; 85610; 85730; 86850; 86900; 86901; 86920; 87040; 87070; 87081; 87086; 87181; 87205; 93005; 93922; 94003; 94150; 94760; J1815; J2250; J2405; J8499

== ENCOUNTER 2018-06-25 08:45 | Inpatient (IN) | payer MEDICARE, MEDICAID ==
[~2018-06-25] VITALS: Ht 172.7 cm; Wt 79.8 kg
[~2018-06-25 08:45] MED LIST changes: -ACETAMINOPHEN325 M1 ORAL; -BISACODYL5 MG RECTAL; -Bacitracin 50000 Units Vial ONE; -Bacitracin Oint 15gm Tube TOPIC ONE; -Bupivacaine 0.5% Inj 30 ml vial INJ ONE; -D5NS 1000ml IV ONE; -Desmopressin (DDAVP) Inj IV SCH; -Heparin 1000 units/ml 1ml Vial ONE; -Heparin 5000 units/ml inj ONE; -Heparin Sod 1000 units/ml 10ml INJ ONE; -Heparin Sod 1000 units/ml 10ml ONE; -Lidocaine 1% Plain 30 ml INJ ONE; -MIDODRINE HCL2.5 MG GT; -NOVOLOG100 UNIT/4 SQ; -NS 275ml ONE; -NS 500ML ONE; -NS Irrig 1000ml ONE; -Propofol 200mg/20ml IV ONE; -Sterile Water Irrig 1000ml IRRIG ONE; -Thrombin 5000 units TOPIC ONE; -Tubing IV Secondary IV ONE; -VANCOMYCIN HCL125 MG IVPB; -VANCOMYCIN1 GM/200 M IV; -ZOFRAN 4 MG4 MG/2 ML IV; -fentaNYL 100 mcg/2 mL IV ONE; -fentaNYL 100 mcg/2 mL IV PRN
[2018-06-25] MEDS ORDERED: Milk of Magnesia 30ml Ud GT PRN (11:45)
[2018-06-25] MEDS ORDERED: Acetaminophen 650mg/20.3ml GT PRN (11:45)
[2018-06-25 12:00] VITALS: BP 114/52
[2018-06-25] MEDS ORDERED: Enoxaparin 40mg Inj SUBQ SCH (12:45)
--- NOTE | 2018-06-25 14:27 | History & Physical ---
History and Physical History & Physicial seen and examined. Full dictation completed on 06/25/18 on [id number] Hever Olivarez MD Jun 25, 2018 14:26
[2018-06-25 18:00] VITALS: BP 106/64
[2018-06-25 20:00] VITALS: BP 110/66
[2018-06-25] MEDS: Atorvastatin 20mg tab GT SCH (20:56)
[2018-06-25] MEDS: NovoLOG Insulin Flexpen SUBQ SCH (20:59)
[2018-06-26] VITALS: BP 102/54
--- NOTE | 2018-06-26 02:45 | History and Physical Report ---
DATE OF ADMISSION: 06/25/2018 SOURCE OF INFORMATION: Patient and EMR. HISTORY OF PRESENT ILLNESS: The patient is a 68-year-old male with the history of respiratory failure, end-stage renal disease, on hemodialysis, and wounds, who presented for the exploration of the hemodialysis fistula. At the time of evaluation, the patient denies chest pain or shortness of breath. Patient at baseline is not verbally communicative. REVIEW OF SYSTEMS: All 14-elements of review of systems reviewed. Pertinent positive and negative as above. PAST MEDICAL HISTORY: Including but not limited to CVA, end-stage renal disease, dysphagia, encephalopathy, and decubitus wounds. CURRENT HOSPITAL MEDICATIONS: Including but not limited to including but not limited to sliding scale insulin, aspirin, atorvastatin, and acetaminophen. SOCIAL HISTORY: The patient is residing in a alf facility. No prior history of illicit drug abuse, smoking, or tobacco use could be found. PHYSICAL EXAMINATION: VITAL SIGNS: Blood pressure 140/80, temperature 98.2, pulse ox 98 percent on room air, and pulse rate is 90 to 85. HEAD AND NECK: Atraumatic and normocephalic. CHEST: Diffuse bronchial breathing sounds. HEART: S1 and S2. Regular rate and rhythm. ABDOMEN: Soft. No organomegaly, positive for the tracheostomyon T-bar. NEUROLOGY: Awake, alert and oriented x1. LABORATORY DATA: Laboratories are pending. ASSESSMENT: 1. Acute encephalopathy. 2. Left-sided exploration of the AV fistula. 3. End-stage renal disease, on hemodialysis. 4. Hypertension. 5. Diabetes. 6. GI and DVT prophylaxis. 7. Hypertension PLAN OF CARE: We will monitor the patient's mental level of consciousness. No evidence of sepsis. No report of trauma has been reported. Current mental status is the patient's baseline from the previous admission. We will continue with neuro check q.4. We will hold on any sepsis workup at this time. We will hold on obtaining the CT scan of the head as this appears to be the patient's baseline. Dear Dr Good & Krys, thanks for giving me the opportunity to participate in the patient's care. hemodialysis and the Nephrology care per Dr Marcano. Mohammad Rezvani, M.D. DR: GONSALO JOB#: [id number] CC: JACIEL
[2018-06-26 04:00] VITALS: BP 105/58
[2018-06-26 05:03] LABS: HEMOGLOBIN 10.2 G/DL (14.2-18.0); MEAN CORPUSCULAR VOLUME 102 FL (80-99); PLATELET COUNT 239 K/UL (150-450); RED BLOOD COUNT 3.13 M/UL (4.70-6.10)
[2018-06-26 05:10] LABS: WHITE BLOOD COUNT 22.8 K/UL (4.8-10.8)
[2018-06-26 05:17] LABS: ANION GAP 16 mmol/L (5-15); BLOOD UREA NITROGEN 74 mg/dL (7-18); CALCIUM 9.6 MG/DL (8.5-10.1); CARBON DIOXIDE 21 MMOL/L (21-32); CHLORIDE 105 MMOL/L (98-107); CREATININE 4.7 MG/DL (0.55-1.30); POTASSIUM 3.8 MMOL/L (3.5-5.1); SODIUM 142 MMOL/L (136-145)
[2018-06-26] MEDS: NovoLOG Insulin Flexpen SUBQ SCH ×3 (05:58→18:03)
[2018-06-26 07:40] LABS: HEMATOCRIT 32.3 % (42.0-52.0); HEMOGLOBIN 10.6 G/DL (14.2-18.0); MEAN CORPUSCULAR VOLUME 101 FL (80-99); PLATELET COUNT 219 K/UL (150-450); RED CELL DISTRIBUTION WIDTH 16.4 % (11.6-14.8); WHITE BLOOD COUNT 18.8 K/UL (4.8-10.8)
[2018-06-26 07:59] LABS: ANION GAP 16 mmol/L (5-15); BLOOD UREA NITROGEN 75 mg/dL (7-18); CALCIUM 9.8 MG/DL (8.5-10.1); CARBON DIOXIDE 22 MMOL/L (21-32); CHLORIDE 106 MMOL/L (98-107); CREATININE 4.8 MG/DL (0.55-1.30); POTASSIUM 4.2 MMOL/L (3.5-5.1); SODIUM 144 MMOL/L (136-145)
[2018-06-26 08:00] VITALS: BP 105/68
[2018-06-26 08:04] LABS: ALANINE AMINOTRANSFERASE 26 U/L (12-78); ALBUMIN 3.4 G/DL (3.4-5.0); ALBUMIN/GLOBULIN RATIO 0.7 (1.0-2.7); ALKALINE PHOSPHATASE 101 U/L (46-116); ASPARTATE AMINO TRANSFERASE 18 U/L (15-37); BILIRUBIN,TOTAL 0.5 MG/DL (0.2-1.0)
[2018-06-26] MEDS: Nephrovite tab (Rena-Vite) GT SCH (08:51)
[2018-06-26] MEDS: Zinc Sulfate 220mg cap GT SCH (08:51)
[2018-06-26] MEDS: Aspirin Baby 81mg GT SCH (08:51)
[2018-06-26] MEDS ORDERED: Metoprolol 25mg tab GT SCH (09:00)
[2018-06-26] MEDS ORDERED: Vancomycin 1.25gm Premix IVPB ONE (09:00)
[2018-06-26] MEDS: Heparin 5000 units/ml inj SUBQ SCH ×2 (10:13→21:19)
--- NOTE | 2018-06-26 10:52 | Consultation ---
History of Present Illness General Date patient seen: Jun 26, 2018 Present Illness HPI this is a 68 year old male well known to me from prior admissions. Currently admitted for vascular care and fistula malfunction. upon admission he was noted to have multiple wounds that had been present during prior admissions and were being cared for by myself. it seems that wounds have been receiving good care since last discharge. surgery called to evaluate and assist with care / management. patient seen, chart reviewed, patient examined. Allergies: Coded Allergies: No Known Allergies (Unverified , 04/14/16) Medication History Scheduled Aspirin* (Aspirin*), 81 MG GT DAILY, (Reported) Atorvastatin Calcium* (Atorvastatin Calcium*), 40 MG GT BEDTIME, (Reported) Famotidine (Famotidine), 20 MG GT DAILY, (Reported) Insulin Lispro (Humalog), Unknown Dose SUBQ Q6HR, (Reported) Meropenem (Meropenem), 500 MG IV DAILY Metoclopramide Hcl* (Metoclopramide Hcl*), 10 MG GT NEEDED, (Reported) Sevelamer Carbonate* (Renvela*), 1,600 MG GT THREE TIMES A DAY, (Reported) Vitamin B Cmplx/Vit C/Folic AC (Nephro-Micah Tablet), 1 TAB GT DAILY, (Reported) Zinc Sulfate (Zinc Sulfate), 220 MG GT DAILY, (Reported) Scheduled PRN Acetaminophen (Acetaminophen), 650 MG GT Q6HR PRN for Mild Pain (Pain Scale 1-3) , (Reported) Insulin Regular, Human (Humulin R), 20 UNITS SUBQ Q12HR PRN for Sliding Scale, ( Reported) Discontinued Medications Levothyroxine Sodium* (Synthroid*), 50 MCG GT DAILY, (Reported) Discontinued Reason: Pt stopped taking med Midodrine* (Proamatine*), 10 MG GT THREE TIMES A DAY, (Reported) Discontinued Reason: Pt stopped taking med Patient History Limited by: medical condition History Provided By: Medical Record, PMD Healthcare decision maker Lowell Adkins Resuscitation status Full Code Advanced Directive on File Past Medical/Surgical History Past Medical/Surgical History: (1) Pneumonia (2) UTI (urinary tract infection) (3) Elevated troponin (4) Fever (5) Diabetes (6) Hyperglycemia (7) Aspiration pneumonia (8) Renal insufficiency (9) History of CVA (cerebrovascular accident) (10) G-tube site cellulitis (11) Anemia (12) Encephalopathy (13) Heel sore (14) Dysphagia as late effect of cerebrovascular accident (CVA) (15) Dehydration (16) Electrolyte imbalance (17) GI bleed (18) Gastrostomy tube dependent (19) Sepsis (20) Dialysis patient Review of Systems Review of Symptoms General ROS: no weight loss or fever Psychological ROS: no depression or mood changes, no memory loss Ophthalmic ROS: no visual changes or eye irritation ENT ROS: no nasal congestion, hearing loss, dizziness Allergy and Immunology ROS: no allergic symptoms or urticaria Hematological and Lymphatic ROS: no swollen glands, unusual bleeding or bruising Endocrine ROS: no polyuria, polydipsia, weight changes, temperature intolerance Respiratory ROS: no cough, shortness of breath, or wheezing Cardiovascular ROS: no chest pain or dyspnea on exertion Gastrointestinal ROS: denies abdominal pain, no bright red blood in stool. Musculoskeletal ROS: no myalgias or arthralgias Neurological ROS: no TIA or stroke symptoms Dermatological ROS: no new or changing skin lesions, rashes or pruritis Physical Exam Physical Exam General appearance: alert, no distress, appears stated age Head: Normocephalic, without obvious abnormality, atraumatic Eyes: conjunctivae/corneas clear. PERRL, EOM's intact. Fundi benign Throat: Lips, mucosa, and tongue normal. Teeth and gums normal Neck: supple, symmetrical, trachea midline, no adenopathy, thyroid: not enlarged, symmetric, no tenderness/mass/nodules, no carotid bruit and no JVD Lungs: clear to auscultation bilaterally Heart: regular rate and rhythm, S1, S2 normal, no murmur, click, rub or gallop Abdomen: soft, non-tender. Bowel sounds normal. No masses, no organomegaly Extremities: extremities normal, atraumatic, no cyanosis or edema Pulses: 2+ and symmetric Skin: Skin color, texture, turgor normal. No rashes or lesions Neurologic: okay Last 24 Hour Vital Signs Date Time Temp Pulse Resp B/P (MAP) Pulse Ox O2 Delivery O2 Flow Rate FiO2 06/26/18 09:02 118 105/68 06/26/18 09:00 T-piece 10.0 06/26/18 08:00 97.2 118 14 105/68 (80) 100 06/26/18 08:00 5.0 40 4/12/19 06:55 T-piece 12.0 40 06/26/18 06:55 99 T-piece 12.0 40 06/26/18 04:00 5.0 40 06/26/18 04:00 97.7 115 24 105/58 (74) 100 06/26/18 04:00 118 06/26/18 01:22 99 T-piece 12.0 40 06/26/18 01:22 T-piece 12.0 40 06/26/18 00:00 5.0 40 06/26/18 00:00 98.6 134 24 102/54 (70) 100 06/26/18 00:00 135 06/25/18 22:00 96 T-piece 14.0 50 06/25/18 22:00 T-piece 14.0 50 06/25/18 21:00 T-piece 5.0 06/25/18 20:00 5.0 06/25/18 20:00 119 06/25/18 20:00 98.3 120 24 110/66 (81) 100 06/25/18 18:00 97.7 119 16 106/64 (78) 100 06/25/18 17:49 116 06/25/18 17:45 5.0 06/25/18 12:13 83 06/25/18 12:00 5.0 06/25/18 12:00 97.7 96 16 114/52 (72) 100 06/25/18 11:32 T-piece 5.0 Intake and Output 06/25/18 06/26/18 19:00 07:00 Output Total 100 ml Balance -100 ml Output Urine Total 100 ml # Voids 2 # Bowel Movements 4 1 Laboratory Tests Test 06/26/18 03:45 06/26/18 07:25 White Blood Count 22.8 K/UL (4.8-10.8) *H 18.8 K/UL (4.8-10.8) H Red Blood Count 3.13 M/UL (4.70-6.10) L 3.20 M/UL (4.70-6.10) L Hemoglobin 10.2 G/DL (14.2-18.0) L 10.6 G/DL (14.2-18.0) L Hematocrit 32.0 % (42.0-52.0) L 32.3 % (42.0-52.0) L Mean Corpuscular Volume 102 FL (80-99) H 101 FL (80-99) H Mean Corpuscular Hemoglobin 32.7 PG (27.0-31.0) H 33.1 PG (27.0-31.0) H Mean Corpuscular Hemoglobin Concent 32.0 G/DL (32.0-36.0) 32.9 G/DL (32.0-36.0) Red Cell Distribution Width 16.0 % (11.6-14.8) H 16.4 % (11.6-14.8) H Platelet Count 239 K/UL (150-450) 219 K/UL (150-450) Mean Platelet Volume 9.5 FL (6.5-10.1) 9.1 FL (6.5-10.1) Neutrophils (%) (Auto) % (45.0-75.0) % (45.0-75.0) Lymphocytes (%) (Auto) % (20.0-45.0) % (20.0-45.0) Monocytes (%) (Auto) % (1.0-10.0) % (1.0-10.0) Eosinophils (%) (Auto) % (0.0-3.0) % (0.0-3.0) Basophils (%) (Auto) % (0.0-2.0) % (0.0-2.0) Differential Total Cells Counted 100 100 Neutrophils % (Manual) 83 % (45-75) H 65 % (45-75) Lymphocytes % (Manual) 8 % (20-45) L 23 % (20-45) Monocytes % (Manual) 7 % (1-10) 11 % (1-10) H Eosinophils % (Manual) 0 % (0-3) 0 % (0-3) Basophils % (Manual) 0 % (0-2) 1 % (0-2) Band Neutrophils 2 % (0-8) 0 % (0-8) Platelet Estimate Adequate Adequate Platelet Morphology Normal Normal Hypochromasia 1+ 1+ Anisocytosis 1+ 1+ Macrocytosis 1+ 1+ Sodium Level 142 MMOL/L (136-145) 144 MMOL/L (136-145) Potassium Level 3.8 MMOL/L (3.5-5.1) 4.2 MMOL/L (3.5-5.1) Chloride Level 105 MMOL/L (98-107) 106 MMOL/L (98-107) Carbon Dioxide Level 21 MMOL/L (21-32) 22 MMOL/L (21-32) Anion Gap 16 mmol/L (5-15) H 16 mmol/L (5-15) H Blood Urea Nitrogen 74 mg/dL (7-18) H 75 mg/dL (7-18) H Creatinine 4.7 MG/DL (0.55-1.30) H 4.8 MG/DL (0.55-1.30) H Estimat Glomerular Filtration Rate 12.5 mL/min (>60) 12.2 mL/min (>60) Glucose Level 163 MG/DL (74-106) H 175 MG/DL (74-106) H Calcium Level 9.6 MG/DL (8.5-10.1) 9.8 MG/DL (8.5-10.1) Nucleated Red Blood Cells 1 /100 WBC Total Bilirubin 0.5 MG/DL (0.2-1.0) Aspartate Amino Transf (AST/SGOT) 18 U/L (15-37) Alanine Aminotransferase (ALT/SGPT) 26 U/L (12-78) Alkaline Phosphatase 101 U/L (46-116) Troponin I 0.020 ng/mL (0.000-0.056) Total Protein 8.3 G/DL (6.4-8.2) H Albumin 3.4 G/DL (3.4-5.0) Globulin 4.9 g/dL Albumin/Globulin Ratio 0.7 (1.0-2.7) L Height (Feet): 5 Height (Inches): 8.00 Weight (Pounds): 134 Medications Current Medications Medications (Trade) Dose Ordered Sig/Xochilt Route PRN Reason Start Time Stop Time Status Last Admin Dose Admin Acetaminophen (Tylenol) 650 mg Q6H PRN GT Mild Pain/Temp > 100.5 06/25/18 11:45 07/25/18 11:44 06/25/18 21:53 Aspirin (ASA) 81 mg DAILY GT 06/26/18 09:00 07/26/18 08:59 06/26/18 08:51 Atorvastatin Calcium (Lipitor) 40 mg BEDTIME GT 06/25/18 21:00 07/25/18 20:59 06/25/18 20:56 Bisacodyl (Dulcolax) 10 mg DAILYPRN PRN RECTAL Constipation 06/25/18 11:45 07/25/18 11:44 Dextrose (Dextrose 50%) 25 ml Q30M PRN IV Hypoglycemia 06/25/18 11:45 07/25/18 11:44 Dextrose (Dextrose 50%) 50 ml Q30M PRN IV Hypoglycemia 06/25/18 11:45 07/25/18 11:44 Famotidine (Pepcid) 20 mg DAILY GT 06/26/18 09:00 07/26/18 08:59 06/26/18 08:51 Heparin Sodium (Porcine) (Heparin 5000 units/ml) 5,000 units EVERY 12 HOURS SUBQ 06/26/18 10:00 07/26/18 09:59 06/26/18 10:13 Insulin Aspart (NovoLOG) BEFORE MEALS AND HS SUBQ 06/25/18 21:00 07/25/18 20:59 06/26/18 05:58 Magnesium Hydroxide (Mom) 30 ml HSPRN PRN GT Constipation 06/25/18 11:45 07/25/18 11:44 Metoprolol Tartrate (Lopressor) 25 mg Q12HR GT 06/26/18 09:00 07/26/18 08:59 06/26/18 09:02 Ondansetron HCl (Zofran) 4 mg Q6H PRN IVP Nausea & Vomiting 06/25/18 23:45 07/25/18 23:44 Vancomycin HCl (Vanco rx to dose) 1 ea DAILY PRN MISC Per rx protocol 06/26/18 06:45 07/26/18 06:44 Vitamin B Complex/ Vit C/Folic Acid (Nephrovite) 1 tab DAILY GT 06/26/18 09:00 07/26/18 08:59 06/26/18 08:51 Zinc Sulfate (Zinc Sulfate) 220 mg DAILY GT 06/26/18 09:00 07/26/18 08:59 06/26/18 08:51 Assessment/Plan Problem List: (1) Decubitus ulcer of right ischial area Assessment & Plan: Pt presented on admission with resolving pressure injury to R ischium. Base of wound with trace slough, surrounding erythema.Epithelial scarring from previous wounds noted periwound. Hyperpigmentation scarring noted to sacrum. Intertriginous dermatitis noted to cleft of buttocks ,erythema with satellite lesions noted.Small amt sanguineous exudate. Non-blanchable erythema R heel with fluctuance. Dry scar noted centrally. L heel boggy-pink and blanchable. Skin dryness noted and Numerous scratch duckworth noted to L upper ext, abd and upper thighs. Tx.Plan: Cleanse R ischial wound with Saline. Apply Therahoney. Cover with Optifoam drsg. Change every 3 days and prn. Apply Cavilon To L ear daily. Apply Triad Paste to cleft of buttocks with each perineal care. Apply Cavilon Skin Barrier to both heels. Cover each heel with Optifoam drsg. Change every 7 days and prn. Reposition at least every 2hours or as tolerated. Off-load heels with pillow. ICD Codes: L89.319 - Pressure ulcer of right buttock, unspecified stage SNOMED: 415535797 (2) Electrolyte imbalance ICD Codes: E87.8 - Other disorders of electrolyte and fluid balance, not elsewhere classified SNOMED: 160775361 (3) Leukocytosis Assessment & Plan: cont abx trend labs will monitor thank you ICD Codes: D72.829 - Elevated white blood cell count, unspecified SNOMED: [id number], [id number] Skyler Salmon Jun 26, 2018 10:52
--- NOTE | 2018-06-26 11:17 | Infectious Diseases Prog Note ---
Assessment/Plan Problems: (1) Aspiration pneumonia Assessment & Plan: with right basal atelectasis , will send sputum culture and start meropenem, continue vancomycin . aspiration precaution (2) Fistula, arteriovenous, acquired Assessment & Plan: with possible site infection, for exploration by vascular, continue vancomycin and meropenem pending cultures (3) Sepsis Assessment & Plan: with leukocytosis , due to the above, continue vancomycin and meropenem pending cultures (4) Diabetes Assessment & Plan: recommend tight glycemic control (5) Dialysis patient Assessment & Plan: for AV fistula exploration , renal and vascular are following (6) Decubitus ulcer of right ischial area Assessment & Plan: looks dry and not infected, keep off loading, and local wound care as per hospital protocol (7) UTI (urinary tract infection) Assessment & Plan: will start meropenem empirically pending culture Subjective Allergies: Coded Allergies: No Known Allergies (Unverified , 04/14/16) Objective Vital Signs Last 24 Hour Vital Signs Date Time Temp Pulse Resp B/P (MAP) Pulse Ox O2 Delivery O2 Flow Rate FiO2 06/26/18 09:02 118 105/68 06/26/18 09:00 T-piece 10.0 06/26/18 08:00 97.2 118 14 105/68 (80) 100 06/26/18 08:00 5.0 40 06/26/18 06:55 T-piece 12.0 40 06/26/18 06:55 99 T-piece 12.0 40 06/26/18 04:00 5.0 40 06/26/18 04:00 97.7 115 24 105/58 (74) 100 06/26/18 04:00 118 06/26/18 01:22 99 T-piece 12.0 40 06/26/18 01:22 T-piece 12.0 40 06/26/18 00:00 5.0 40 06/26/18 00:00 98.6 134 24 102/54 (70) 100 06/26/18 00:00 135 06/25/18 22:00 96 T-piece 14.0 50 06/25/18 22:00 T-piece 14.0 50 06/25/18 21:00 T-piece 5.0 06/25/18 20:00 5.0 06/25/18 20:00 119 06/25/18 20:00 98.3 120 24 110/66 (81) 100 06/25/18 18:00 97.7 119 16 106/64 (78) 100 06/25/18 17:49 116 06/25/18 17:45 5.0 06/25/18 12:13 83 06/25/18 12:00 5.0 06/25/18 12:00 97.7 96 16 114/52 (72) 100 06/25/18 11:32 T-piece 5.0 Height (Feet): 5 Height (Inches): 8.00 Weight (Pounds): 134 Laboratory Tests Test 06/26/18 03:45 06/26/18 07:25 White Blood Count 22.8 K/UL (4.8-10.8) *H 18.8 K/UL (4.8-10.8) H Red Blood Count 3.13 M/UL (4.70-6.10) L 3.20 M/UL (4.70-6.10) L Hemoglobin 10.2 G/DL (14.2-18.0) L 10.6 G/DL (14.2-18.0) L Hematocrit 32.0 % (42.0-52.0) L 32.3 % (42.0-52.0) L Mean Corpuscular Volume 102 FL (80-99) H 101 FL (80-99) H Mean Corpuscular Hemoglobin 32.7 PG (27.0-31.0) H 33.1 PG (27.0-31.0) H Mean Corpuscular Hemoglobin Concent 32.0 G/DL (32.0-36.0) 32.9 G/DL (32.0-36.0) Red Cell Distribution Width 16.0 % (11.6-14.8) H 16.4 % (11.6-14.8) H Platelet Count 239 K/UL (150-450) 219 K/UL (150-450) Mean Platelet Volume 9.5 FL (6.5-10.1) 9.1 FL (6.5-10.1) Neutrophils (%) (Auto) % (45.0-75.0) % (45.0-75.0) Lymphocytes (%) (Auto) % (20.0-45.0) % (20.0-45.0) Monocytes (%) (Auto) % (1.0-10.0) % (1.0-10.0) Eosinophils (%) (Auto) % (0.0-3.0) % (0.0-3.0) Basophils (%) (Auto) % (0.0-2.0) % (0.0-2.0) Differential Total Cells Counted 100 100 Neutrophils % (Manual) 83 % (45-75) H 65 % (45-75) Lymphocytes % (Manual) 8 % (20-45) L 23 % (20-45) Monocytes % (Manual) 7 % (1-10) 11 % (1-10) H Eosinophils % (Manual) 0 % (0-3) 0 % (0-3) Basophils % (Manual) 0 % (0-2) 1 % (0-2) Band Neutrophils 2 % (0-8) 0 % (0-8) Platelet Estimate Adequate Adequate Platelet Morphology Normal Normal Hypochromasia 1+ 1+ Anisocytosis 1+ 1+ Macrocytosis 1+ 1+ Sodium Level 142 MMOL/L (136-145) 144 MMOL/L (136-145) Potassium Level 3.8 MMOL/L (3.5-5.1) 4.2 MMOL/L (3.5-5.1) Chloride Level 105 MMOL/L (98-107) 106 MMOL/L (98-107) Carbon Dioxide Level 21 MMOL/L (21-32) 22 MMOL/L (21-32) Anion Gap 16 mmol/L (5-15) H 16 mmol/L (5-15) H Blood Urea Nitrogen 74 mg/dL (7-18) H 75 mg/dL (7-18) H Creatinine 4.7 MG/DL (0.55-1.30) H 4.8 MG/DL (0.55-1.30) H Estimat Glomerular Filtration Rate 12.5 mL/min (>60) 12.2 mL/min (>60) Glucose Level 163 MG/DL (74-106) H 175 MG/DL (74-106) H Calcium Level 9.6 MG/DL (8.5-10.1) 9.8 MG/DL (8.5-10.1) Nucleated Red Blood Cells 1 /100 WBC Total Bilirubin 0.5 MG/DL (0.2-1.0) Aspartate Amino Transf (AST/SGOT) 18 U/L (15-37) Alanine Aminotransferase (ALT/SGPT) 26 U/L (12-78) Alkaline Phosphatase 101 U/L (46-116) Troponin I 0.020 ng/mL (0.000-0.056) Total Protein 8.3 G/DL (6.4-8.2) H Albumin 3.4 G/DL (3.4-5.0) Globulin 4.9 g/dL Albumin/Globulin Ratio 0.7 (1.0-2.7) L Current Medications Medications (Trade) Dose Ordered Sig/Xochilt Route PRN Reason Start Time Stop Time Status Last Admin Dose Admin Acetaminophen (Tylenol) 650 mg Q6H PRN GT Mild Pain/Temp > 100.5 06/25/18 11:45 07/25/18 11:44 06/25/18 21:53 Aspirin (ASA) 81 mg DAILY GT 06/26/18 09:00 07/26/18 08:59 06/26/18 08:51 Atorvastatin Calcium (Lipitor) 40 mg BEDTIME GT 06/25/18 21:00 07/25/18 20:59 06/25/18 20:56 Bisacodyl (Dulcolax) 10 mg DAILYPRN PRN RECTAL Constipation 06/25/18 11:45 07/25/18 11:44 Dextrose (Dextrose 50%) 25 ml Q30M PRN IV Hypoglycemia 06/25/18 11:45 07/25/18 11:44 Dextrose (Dextrose 50%) 50 ml Q30M PRN IV Hypoglycemia 06/25/18 11:45 07/25/18 11:44 Famotidine (Pepcid) 20 mg DAILY GT 06/26/18 09:00 07/26/18 08:59 06/26/18 08:51 Heparin Sodium (Porcine) (Heparin 5000 units/ml) 5,000 units EVERY 12 HOURS SUBQ 06/26/18 10:00 07/26/18 09:59 06/26/18 10:13 Insulin Aspart (NovoLOG) BEFORE MEALS AND HS SUBQ 06/25/18 21:00 07/25/18 20:59 06/26/18 05:58 Magnesium Hydroxide (Mom) 30 ml HSPRN PRN GT Constipation 06/25/18 11:45 07/25/18 11:44 Metoprolol Tartrate (Lopressor) 25 mg Q12HR GT 06/26/18 09:00 07/26/18 08:59 06/26/18 09:02 Ondansetron HCl (Zofran) 4 mg Q6H PRN IVP Nausea & Vomiting 06/25/18 23:45 07/25/18 23:44 Vancomycin HCl (Vanco rx to dose) 1 ea DAILY PRN MISC Per rx protocol 06/26/18 06:45 07/26/18 06:44 Vitamin B Complex/ Vit C/Folic Acid (Nephrovite) 1 tab DAILY GT 06/26/18 09:00 07/26/18 08:59 06/26/18 08:51 Zinc Sulfate (Zinc Sulfate) 220 mg DAILY GT 06/26/18 09:00 07/26/18 08:59 06/26/18 08:51 Devika Gaitan M.D. Jun 26, 2018 11:17
--- NOTE | 2018-06-26 11:25 | Consultation ---
Consult Note Consult Note consult nephrology reason for consult: ESRD HPI The patient is a 68-year-old male with the history of respiratory failure, end-stage renal disease, on hemodialysis, and wounds, who presented for the exploration of the hemodialysis fistula. Pt was found to have leukocytosis and is on empiric abx. REVIEW OF SYSTEMS: difficult to obtain due to MS PAST MEDICAL HISTORY: Including but not limited to CVA, end-stage renal disease, dysphagia, encephalopathy, and decubitus wounds. CURRENT HOSPITAL MEDICATIONS: reviewed in chart SOCIAL HISTORY: The patient is residing in a assisted facility. No prior history of illicit drug abuse, smoking, or tobacco use could be found. PE: vital signs reviewed gen: nonverbal, nad cv rrr pulm coarse bs abd soft, nd, nt +bs ext: no edema labs reviewed in chart Impression/Plan: 1. ESRD: - HD today. routine access care 2. leukocytosis: - AVF infection? aspiration PNA? - on empiric abx - f/u cx 3. anemia: - epogen with hd as needed 4. BMD: - cont to monitor ca and phos 5. chronic resp failure: - vent management per pulm 6. hx of CVA: - monitor Monica Roper MD Jun 26, 2018 11:25
[2018-06-26 12:00] VITALS: BP 97/63
--- NOTE | 2018-06-26 12:47 | General Progress Note ---
Assessment/Plan Assessment/Plan PHYSICAL EXAMINATION: VITAL SIGNS: Blood pressure 140/80, temperature 98.2, pulse ox 98 percent on room air, and pulse rate is 90 to 85. HEAD AND NECK: Atraumatic and normocephalic. CHEST: Diffuse bronchial breathing sounds. S: not verbal , at base line O: appears comfortable, eyes open, not verbal, at baseline At/NC, T-bar in place with Trach, Chest: Diffuse bronchial bs, HEART: S1 and S2. Regular rate and rhythm.ABDOMEN: Soft. No organomegaly, positive for the tracheostomy T-bar. NEUROLOGY: Awake, alert and oriented x1. MS: Post exploration of Left Arm AV/F , covered with dressing Meds: reviwed, including Meropenem ASSESSMENT: 1. Sepsis: UTI, wound, PNA ! ? 2- Acute encephalopathy : Resolved, at base line 2. Post exploartion of the Left-sided the AV fistula. 3. End-stage renal disease, on hemodialysis. 4. Hypertension. 5. Diabetes. 6. GI and DVT prophylaxis. 7. Hypertension PLAN OF CARE: c/w empirical abx cxr notes from Wound management MD and Nephro reviewed Subjective Allergies: Coded Allergies: No Known Allergies (Unverified , 04/14/16) Objective Last 24 Hour Vital Signs Date Time Temp Pulse Resp B/P (MAP) Pulse Ox O2 Delivery O2 Flow Rate FiO2 06/26/18 12:00 10.0 40 06/26/18 12:00 97.8 105 18 97/63 (74) 100 06/26/18 09:02 118 105/68 06/26/18 09:00 T-piece 10.0 06/26/18 08:00 97.2 118 14 105/68 (80) 100 06/26/18 08:00 5.0 40 06/26/18 06:55 T-piece 12.0 40 06/26/18 06:55 99 T-piece 12.0 40 06/26/18 04:00 5.0 40 06/26/18 04:00 97.7 115 24 105/58 (74) 100 06/26/18 04:00 118 06/26/18 01:22 99 T-piece 12.0 40 06/26/18 01:22 T-piece 12.0 40 06/26/18 00:00 5.0 40 06/26/18 00:00 98.6 134 24 102/54 (70) 100 06/26/18 00:00 135 06/25/18 22:00 96 T-piece 14.0 50 06/25/18 22:00 T-piece 14.0 50 06/25/18 21:00 T-piece 5.0 06/25/18 20:00 5.0 06/25/18 20:00 119 06/25/18 20:00 98.3 120 24 110/66 (81) 100 06/25/18 18:00 97.7 119 16 106/64 (78) 100 06/25/18 17:49 116 06/25/18 17:45 5.0 Intake and Output 06/25/18 06/26/18 19:00 07:00 Output Total 100 ml Balance -100 ml Output Urine Total 100 ml # Voids 2 # Bowel Movements 4 1 Laboratory Tests 06/26/18 03:45: White Blood Count 22.8*H, Red Blood Count 3.13L, Hemoglobin 10.2L, Hematocrit 32.0L, Mean Corpuscular Volume 102H, Mean Corpuscular Hemoglobin 32.7H, Mean Corpuscular Hemoglobin Concent 32.0, Red Cell Distribution Width 16.0H, Platelet Count 239, Mean Platelet Volume 9.5, Neutrophils (%) (Auto) , Lymphocytes (%) (Auto) , Monocytes (%) (Auto) , Eosinophils (%) (Auto) , Basophils (%) (Auto) , Differential Total Cells Counted 100, Neutrophils % ( Manual) 83H, Lymphocytes % (Manual) 8L, Monocytes % (Manual) 7, Eosinophils % ( Manual) 0, Basophils % (Manual) 0, Band Neutrophils 2, Platelet Estimate Adequate, Platelet Morphology Normal, Hypochromasia 1+, Anisocytosis 1+, Macrocytosis 1+, Sodium Level 142, Potassium Level 3.8, Chloride Level 105, Carbon Dioxide Level 21, Anion Gap 16H, Blood Urea Nitrogen 74H, Creatinine 4.7H , Estimat Glomerular Filtration Rate 12.5, Glucose Level 163H, Calcium Level 9.6 06/26/18 07:25: White Blood Count 18.8H, Red Blood Count 3.20L, Hemoglobin 10.6L, Hematocrit 32.3L, Mean Corpuscular Volume 101H, Mean Corpuscular Hemoglobin 33.1H, Mean Corpuscular Hemoglobin Concent 32.9, Red Cell Distribution Width 16.4H, Platelet Count 219, Mean Platelet Volume 9.1, Neutrophils (%) (Auto) , Lymphocytes (%) (Auto) , Monocytes (%) (Auto) , Eosinophils (%) (Auto) , Basophils (%) (Auto) , Differential Total Cells Counted 100, Neutrophils % ( Manual) 65, Lymphocytes % (Manual) 23, Monocytes % (Manual) 11H, Eosinophils % ( Manual) 0, Basophils % (Manual) 1, Band Neutrophils 0, Platelet Estimate Adequate, Platelet Morphology Normal, Hypochromasia 1+, Anisocytosis 1+, Macrocytosis 1+, Sodium Level 144, Potassium Level 4.2, Chloride Level 106, Carbon Dioxide Level 22, Anion Gap 16H, Blood Urea Nitrogen 75H, Creatinine 4.8H , Estimat Glomerular Filtration Rate 12.2, Glucose Level 175H, Calcium Level 9.8 , Nucleated Red Blood Cells 1, Total Bilirubin 0.5, Aspartate Amino Transf (AST/ SGOT) 18, Alanine Aminotransferase (ALT/SGPT) 26, Alkaline Phosphatase 101, Troponin I 0.020, Total Protein 8.3H, Albumin 3.4, Globulin 4.9, Albumin/ Globulin Ratio 0.7L 06/26/18 12:20: Hepatitis B Surface Antigen [Pending], Hepatitis B Surface Antibody, Quant [ Pending], Hepatitis C Antibody [Pending] Height (Feet): 5 Height (Inches): 8.00 Weight (Pounds): 134 Hever Olivarez MD Jun 26, 2018 12:47
--- NOTE | 2018-06-26 12:57 | 48 Hour Post Anesthesia Eval ---
Post Anesthesia Evaluation Procedure: L arm A-V fistula revision Date of Evaluation: Jun 26, 2018 Time of Evaluation: 12:56 Blood Pressure Systolic: 94 0: 52 Pulse Rate: 76 Respiratory Rate: 22 Temperature (Fahrenheit): 97.4 O2 Sat by Pulse Oximetry: 98 Airway: patent Nausea: No Vomiting: No Pain Intensity: 2 Hydration Status: adequate Cardiopulmonary Status: stable Mental Status/LOC: patient returned to baseline Follow-up Care/Observations: n/a Post-Anesthesia Complications: none Follow-up care needed: N/A Shon Brar MD Jun 26, 2018 12:57
[2018-06-26] MEDS: Meropenem 500 MG in NS 55 ML IVPB SCH (13:23)
[2018-06-26] MEDS: D5NS 1,000 ML IV SCH (13:23)
--- NOTE | 2018-06-26 15:40 | Diagnostic Imaging Report ---
Indication: Shortness of breath Technique: One view of the chest Comparison: 04/24/2018 Findings: Less optimal inspiration currently. There is increased atelectasis at the right lung base. The left lung and pleural space are clear. The heart size is normal. Tracheostomy, tunneled dialysis catheter are again demonstrated Impression: Increased right basilar atelectasis. No acute process otherwise
[2018-06-26 16:00] VITALS: BP 95/59
[2018-06-26 18:56] LABS: APPEARANCE,URINE CLOUDY; BILIRUBIN, URINE NEGATIVE (NEGATIVE); GLUCOSE, URINE (UA) NEGATIVE (NEGATIVE); KETONES,URINE NEGATIVE (NEGATIVE); LEUKOCYTE ESTERASE ,URINE 3+ (NEGATIVE); NITRITE,URINE NEGATIVE (NEGATIVE); PH,URINE 5 (4.5-8.0); PROTEIN,URINE 2+ (NEGATIVE); UROBILINOGEN,URINE NORMAL MG/DL (0.0-1.0)
[2018-06-26 18:58] LABS: COLOR,URINE YELLOW
[2018-06-26 20:00] VITALS: BP 91/52
[2018-06-26] MEDS: Atorvastatin 20mg tab GT SCH (21:17)
[2018-06-27] VITALS: BP 90/59
[2018-06-27] MEDS: NovoLOG Insulin Flexpen SUBQ SCH ×4 (00:42→17:37)
--- NOTE | 2018-06-27 03:45 | Consultation ---
DATE OF CONSULTATION: 06/26/2018 CARDIOLOGY CONSULTATION CONSULTING PHYSICIAN: Aleks Bess M.D. REFERRING PHYSICIAN: Hever Olivarez M.D. REASON FOR CONSULTATION: Management of hypertension. HISTORY OF PRESENT ILLNESS: This is a very unfortunate 68-year-old gentleman, who presents to this hospital for exploration of hemodialysis fistula. The patient, at the time of arrival to the hospital, did not have any chest pain or shortness of breath. However, his blood pressure was low and he was diagnosed with hypotension. He was also tachycardic. Cardiology consultation was made at the request of Dr. Olivarez for assessment and management of the above. Unfortunately, the patient is nonverbal. His cardiovascular history is significant for history of CVA as well as diabetes mellitus, dyslipidemia, and hypertension. PAST MEDICAL HISTORY: CVA, end-stage renal disease, dysphagia, encephalopathy decubitus wound, hypertension, anemia, history of respiratory failure status post tracheostomy tube placement, as well as diabetes mellitus. MEDICATIONS: List of medication includes acetaminophen 650 mg G-tube q.6 hours p.r.n., aspirin 81 mg G-tube daily, atorvastatin 40 mg G-tube at bedtime, famotidine 20 mg G-tube daily, insulin regular 20 units subcutaneous q.12 hours p.r.n. sliding scale, meropenem 500 mg intravenous daily for 8 days, metoclopramide 10 mg G-tube as needed, Renvela 1600 mg G-tube 3 times a day, Nephro-Micah 1 tablet G-tube daily, and zinc sulfate 220 mg G-tube daily. ALLERGIES: No known drug allergies. SOCIAL HISTORY: Residing at longterm facility. No prior history of tobacco, alcohol, or illicit drug use. REVIEW OF SYSTEMS: The patient is unfortunately nonverbal. Therefore, 12-system review could not be done. PHYSICAL EXAMINATION: VITAL SIGNS: Blood pressure 95/59, heart rate of 101, respirations 22, temperature 98.2 degrees Fahrenheit, and O2 saturation 100% on FiO2 of 40%. GENERAL: The patient is a very unfortunate 68-year-old gentleman, who is nonverbal. HEENT: Atraumatic and normocephalic. Anicteric. Pupils are equal, round, and reactive to light and accommodation. Conjunctival pallor is present. NECK: JVP cannot be assessed. No carotid bruit. Carotid upstroke is 2+ bilaterally. Positive for tracheostomy tube. CARDIOVASCULAR: Normal S1, S2. Regular rate and rhythm. Tachycardic. No murmurs, gallops, or rubs. LUNGS: Clear to auscultation bilaterally. ABDOMEN: Soft, nontender, and nondistended. No hepatosplenomegaly. Positive bowel sounds. Presence of a G-tube. EXTREMITIES: No evidence of edema, clubbing, or cyanosis. DIAGNOSTIC DATA: A 12-lead electrocardiogram, sinus tachycardia at a rate of 119 with normal axis and QT prolongation. Otherwise, Q-waves in lead 3 and aVF, which may suggest inferior wall infarct possibly old of age indeterminate. Chest x-ray, increased right basilar atelectasis. No evidence of pulmonary edema. Tracheostomy tube in place. LABORATORY FINDINGS: WBC 22.8, hemoglobin 10.2, hematocrit of 32.0, platelet count 239,000, neutrophils 83%, and 2% bands. Sodium is 142, potassium is 3.8, chloride 105, bicarbonate 21, BUN of 74, creatinine 4.7, glucose is 163, and calcium is 9.6. Troponin I is 0.02. ASSESSMENT/PLAN: The patient is a very unfortunate 68-year-old gentleman seen in Cardiology consultation. 1. Hypotension. The patient is noted to have excessive fluid withdrawal during hemodialysis or hypotension that is associated with regular hemodialysis. I would consider not providing metoprolol on the morning of dialysis days and preferably given in the evening. Other reason for his hypotension could be sepsis as the patient shows leukocytosis with some left shift, which may suggest infection. The patient is already seen by ID specialist and IV antibiotic is ongoing. 2. Sinus tachycardia. This could be secondary to hypotension or could be secondary to the present infection. I would like to thank, Dr. Olivarez, for allowing me to participate in the care of this patient. Aleks Bess M.D. DR: FRANKLYN JOB#: [id number] CC:
[2018-06-27 04:00] VITALS: BP 91/58
[2018-06-27 06:37] LABS: BASOPHILS % (AUTO) 0.8 % (0.0-2.0); EOSINOPHILS % (AUTO) 2.8 % (0.0-3.0); HEMATOCRIT 26.1 % (42.0-52.0); HEMOGLOBIN 8.3 G/DL (14.2-18.0); LYMPHOCYTES % (AUTO) 19.2 % (20.0-45.0); MEAN CORPUSCULAR VOLUME 103 FL (80-99); NEUTROPHILS % (AUTO) 67.1 % (45.0-75.0); PLATELET COUNT 199 K/UL (150-450); RED BLOOD COUNT 2.53 M/UL (4.70-6.10); RED CELL DISTRIBUTION WIDTH 17.5 % (11.6-14.8); WHITE BLOOD COUNT 13.6 K/UL (4.8-10.8)
[2018-06-27 07:14] LABS: ALANINE AMINOTRANSFERASE 16 U/L (12-78); ALBUMIN 2.6 G/DL (3.4-5.0); ALBUMIN/GLOBULIN RATIO 0.6 (1.0-2.7); ALKALINE PHOSPHATASE 96 U/L (46-116); ANION GAP 9 mmol/L (5-15); ASPARTATE AMINO TRANSFERASE 18 U/L (15-37); BILIRUBIN,TOTAL 0.3 MG/DL (0.2-1.0); BLOOD UREA NITROGEN 39 mg/dL (7-18); CALCIUM 8.8 MG/DL (8.5-10.1); CARBON DIOXIDE 28 MMOL/L (21-32); CHLORIDE 105 MMOL/L (98-107); POTASSIUM 3.2 MMOL/L (3.5-5.1); SODIUM 142 MMOL/L (136-145)
[2018-06-27 07:34] LABS: INR 1.1 (0.9-1.1)
--- NOTE | 2018-06-27 07:42 | General Progress Note ---
Assessment/Plan Assessment/Plan S: not verbaly communicative O: appears comfortable, eyes open, not verbal, at baseline PHYSICAL EXAMINATION: HEAD AND NECK: Atraumatic and normocephalic. CHEST: Diffuse bronchial breathing sounds.At/NC, T-bar in place with Trach, Chest: Diffuse bronchial bs, HEART: S1 and S2. Regular rate and rhythm.ABDOMEN : Soft. No organomegaly, positive for the tracheostomy T-bar.NEUROLOGY: Awake , alert and oriented x1. MS: Post exploration of Left Arm AV/F, covered with dressing Meds: reviewed, including Meropenem ASSESSMENT: 1. Sepsis: UTI, wound, PNA ! ? 2- Acute encephalopathy : Resolved, at base line 2. Post exploartion of the Left-sided the AV fistula. 3. End-stage renal disease, on hemodialysis. 4. Hypertension. 5. Diabetes. 6. Acute Anemia 6. GI and DVT prophylaxis. 7. Hypertension PLAN OF CARE: c/w empirical abx will test Occult blood in stool Subjective Allergies: Coded Allergies: No Known Allergies (Unverified , 04/14/16) Objective Last 24 Hour Vital Signs Date Time Temp Pulse Resp B/P (MAP) Pulse Ox O2 Delivery O2 Flow Rate FiO2 06/27/18 06:57 99 T-piece 10.0 35 06/27/18 06:57 T-piece 10.0 35 06/27/18 04:08 10.0 35 06/27/18 04:00 99.1 118 20 91/58 (69) 98 06/27/18 04:00 118 06/27/18 00:00 119 06/27/18 00:00 99.8 119 17 90/59 (69) 98 06/26/18 23:58 T-piece 12.0 40 06/26/18 23:57 98 T-piece 12.0 40 06/26/18 21:00 T-piece 10.0 06/26/18 20:00 98.9 116 18 91/52 (65) 100 06/26/18 20:00 10.0 40 06/26/18 20:00 114 06/26/18 19:12 T-piece 12.0 40 06/26/18 19:11 97 T-piece 12.0 40 06/26/18 16:00 10.0 40 06/26/18 16:00 10.0 40 06/26/18 16:00 118 06/26/18 16:00 98.0 101 22 95/59 (71) 100 06/26/18 15:32 102 06/26/18 13:17 99 T-piece 12.0 40 06/26/18 13:17 T-piece 12.0 40 06/26/18 12:57 76 22 98 06/26/18 12:00 10.0 40 06/26/18 12:00 97.8 105 18 97/63 (74) 100 06/26/18 11:28 106 06/26/18 09:02 118 105/68 06/26/18 09:00 T-piece 10.0 06/26/18 08:00 97.2 118 14 105/68 (80) 100 06/26/18 08:00 5.0 40 Intake and Output 06/26/18 06/27/18 18:59 06:59 Intake Total 764.667 ml 1120 ml Output Total 350 ml Balance 764.667 ml 770 ml Intake Free Water 200 ml 600 ml IV Total 434.667 ml Tube Feeding 80 ml 520 ml Other 50 ml Output Urine Total 350 ml # Voids 2 # Bowel Movements 1 Laboratory Tests 06/26/18 12:20: Hepatitis B Surface Antigen [Pending], Hepatitis B Surface Antibody, Quant [ Pending], Hepatitis C Antibody [Pending] 06/26/18 18:00: Urine Color Yellow, Urine Appearance Cloudy, Urine pH 5, Urine Specific [place] 1.015, Urine Protein 2+H, Urine Glucose (UA) Negative, Urine Ketones Negative, Urine Blood 4+H, Urine Nitrite Negative, Urine Bilirubin Negative, Urine Urobilinogen Normal, Urine Leukocyte Esterase 3+H, Urine RBC TntcH, Urine WBC TntcH, Urine Squamous Epithelial Cells ModerateH, Urine Bacteria ManyH, Urine Yeast ManyH 06/26/18 19:37: Troponin I 0.031 06/27/18 05:00: White Blood Count 13.6H, Red Blood Count 2.53L, Hemoglobin 8.3L, Hematocrit 26.1L, Mean Corpuscular Volume 103H, Mean Corpuscular Hemoglobin 33.0H, Mean Corpuscular Hemoglobin Concent 31.9L, Red Cell Distribution Width 17.5H, Platelet Count 199, Mean Platelet Volume 8.6, Neutrophils (%) (Auto) 67.1, Lymphocytes (%) (Auto) 19.2L, Monocytes (%) (Auto) 10.0, Eosinophils (%) (Auto) 2.8, Basophils (%) (Auto) 0.8, Erythrocyte Sedimentation Rate [Pending], Prothrombin Time 11.3, Prothromb Time International Ratio 1.1, Activated Partial Thromboplast Time 29, Sodium Level 142, Potassium Level 3.2L, Chloride Level 105, Carbon Dioxide Level 28, Anion Gap 9, Blood Urea Nitrogen 39H, Creatinine 3.0H, Estimat Glomerular Filtration Rate 20.9, Glucose Level 168H, Calcium Level 8.8, Total Bilirubin 0.3, Aspartate Amino Transf (AST/SGOT) 18, Alanine Aminotransferase (ALT/SGPT) 16, Alkaline Phosphatase 96, C-Reactive Protein, Quantitative 29.1H, Total Protein 6.9, Albumin 2.6L, Globulin 4.3, Albumin/Globulin Ratio 0.6L Height (Feet): 5 Height (Inches): 8.00 Weight (Pounds): 142 Hever Olivarez MD Jun 27, 2018 07:42
[2018-06-27 08:00] VITALS: BP 119/58
[2018-06-27] MEDS: Heparin 5000 units/ml inj SUBQ SCH ×2 (08:54→22:01)
[2018-06-27] MEDS: Zinc Sulfate 220mg cap GT SCH (08:54)
[2018-06-27] MEDS: Aspirin Baby 81mg GT SCH (08:54)
[2018-06-27] MEDS: Nephrovite tab (Rena-Vite) GT SCH (08:54)
[2018-06-27 12:00] VITALS: BP 85/53
[2018-06-27] MEDS: D5NS 1,000 ML IV SCH (12:51)
--- NOTE | 2018-06-27 13:38 | Surgery Progress Note ---
Surgery Progress Note Subjective Additional Comments leukocytosis. UA noted. CXR noted. UTI, PNA. exam stable. Objective Last 24 Hour Vital Signs Date Time Temp Pulse Resp B/P (MAP) Pulse Ox O2 Delivery O2 Flow Rate FiO2 06/27/18 13:15 T-piece 10.0 35 06/27/18 13:15 98 T-piece 10.0 35 06/27/18 12:00 10.0 35 06/27/18 12:00 99 06/27/18 12:00 99.3 100 20 85/53 (64) 99 06/27/18 09:00 T-piece 10.0 06/27/18 08:00 99.5 108 20 119/58 (78) 98 06/27/18 08:00 10.0 35 06/27/18 08:00 108 06/27/18 06:57 99 T-piece 10.0 35 06/27/18 06:57 T-piece 10.0 35 06/27/18 04:08 10.0 35 06/27/18 04:00 99.1 118 20 91/58 (69) 98 06/27/18 04:00 118 06/27/18 00:00 119 06/27/18 00:00 99.8 119 17 90/59 (69) 98 06/26/18 23:58 T-piece 12.0 40 06/26/18 23:57 98 T-piece 12.0 40 06/26/18 21:00 T-piece 10.0 06/26/18 20:00 98.9 116 18 91/52 (65) 100 06/26/18 20:00 10.0 40 06/26/18 20:00 114 06/26/18 19:12 T-piece 12.0 40 06/26/18 19:11 97 T-piece 12.0 40 06/26/18 16:00 10.0 40 06/26/18 16:00 10.0 40 06/26/18 16:00 118 06/26/18 16:00 98.0 101 22 95/59 (71) 100 06/26/18 15:32 102 I&O Intake and Output 06/26/18 06/27/18 19:00 07:00 Intake Total 804.667 ml 1080 ml Output Total 350 ml Balance 804.667 ml 730 ml Intake Free Water 200 ml 600 ml IV Total 434.667 ml Tube Feeding 120 ml 480 ml Other 50 ml Output Urine Total 350 ml # Voids 2 # Bowel Movements 1 Dressing: saturated Wound: other Drains: other Cardiovascular: RSR Respiratory: decreased breath sounds Abdomen: soft, present bowel sounds, non-distended Extremities: other Laboratory Tests Test 06/26/18 18:00 06/26/18 19:37 06/27/18 05:00 06/27/18 10:00 Urine Color Yellow Urine Appearance Cloudy Urine pH 5 (4.5-8.0) Urine Specific [place] 1.015 (1.005-1.035) Urine Protein 2+ (NEGATIVE) H Urine Glucose (UA) Negative (NEGATIVE) Urine Ketones Negative (NEGATIVE) Urine Blood 4+ (NEGATIVE) H Urine Nitrite Negative (NEGATIVE) Urine Bilirubin Negative (NEGATIVE) Urine Urobilinogen Normal MG/DL (0.0-1.0) Urine Leukocyte Esterase 3+ (NEGATIVE) H Urine RBC Tntc /HPF (0 - 0) H Urine WBC Tntc /HPF (0 - 0) H Urine Squamous Epithelial Cells Moderate /LPF (NONE/OCC) H Urine Bacteria Many /HPF (NONE) H Urine Yeast Many /HPF (NONE) H Troponin I 0.031 ng/mL (0.000-0.056) White Blood Count 13.6 K/UL (4.8-10.8) H Red Blood Count 2.53 M/UL (4.70-6.10) L Hemoglobin 8.3 G/DL (14.2-18.0) L Hematocrit 26.1 % (42.0-52.0) L Mean Corpuscular Volume 103 FL (80-99) H Mean Corpuscular Hemoglobin 33.0 PG (27.0-31.0) H Mean Corpuscular Hemoglobin Concent 31.9 G/DL (32.0-36.0) L Red Cell Distribution Width 17.5 % (11.6-14.8) H Platelet Count 199 K/UL (150-450) Mean Platelet Volume 8.6 FL (6.5-10.1) Neutrophils (%) (Auto) 67.1 % (45.0-75.0) Lymphocytes (%) (Auto) 19.2 % (20.0-45.0) L Monocytes (%) (Auto) 10.0 % (1.0-10.0) Eosinophils (%) (Auto) 2.8 % (0.0-3.0) Basophils (%) (Auto) 0.8 % (0.0-2.0) Erythrocyte Sedimentation Rate 85 MM/HR (0-20) H Prothrombin Time 11.3 SEC (9.30-11.50) Prothromb Time International Ratio 1.1 (0.9-1.1) Activated Partial Thromboplast Time 29 SEC (23-33) Sodium Level 142 MMOL/L (136-145) Potassium Level 3.2 MMOL/L (3.5-5.1) L Chloride Level 105 MMOL/L (98-107) Carbon Dioxide Level 28 MMOL/L (21-32) Anion Gap 9 mmol/L (5-15) Blood Urea Nitrogen 39 mg/dL (7-18) H Creatinine 3.0 MG/DL (0.55-1.30) H Estimat Glomerular Filtration Rate 20.9 mL/min (>60) Glucose Level 168 MG/DL (74-106) H Calcium Level 8.8 MG/DL (8.5-10.1) Total Bilirubin 0.3 MG/DL (0.2-1.0) Aspartate Amino Transf (AST/SGOT) 18 U/L (15-37) Alanine Aminotransferase (ALT/SGPT) 16 U/L (12-78) Alkaline Phosphatase 96 U/L (46-116) C-Reactive Protein, Quantitative 29.1 mg/dL (0.00-0.90) H Total Protein 6.9 G/DL (6.4-8.2) Albumin 2.6 G/DL (3.4-5.0) L Globulin 4.3 g/dL Albumin/Globulin Ratio 0.6 (1.0-2.7) L Random Vancomycin Level 16.2 ug/mL Plan Problems: (1) Decubitus ulcer of right ischial area Assessment & Plan: Pt presented on admission with resolving pressure injury to R ischium. Base of wound with trace slough, surrounding erythema.Epithelial scarring from previous wounds noted periwound. Hyperpigmentation scarring noted to sacrum. Intertriginous dermatitis noted to cleft of buttocks ,erythema with satellite lesions noted.Small amt sanguineous exudate. Non-blanchable erythema R heel with fluctuance. Dry scar noted centrally. L heel boggy-pink and blanchable. Skin dryness noted and Numerous scratch duckworth noted to L upper ext, abd and upper thighs. Tx.Plan: Cleanse R ischial wound with Saline. Apply Therahoney. Cover with Optifoam drsg. Change every 3 days and prn. Apply Cavilon To L ear daily. Apply Triad Paste to cleft of buttocks with each perineal care. Apply Cavilon Skin Barrier to both heels. Cover each heel with Optifoam drsg. Change every 7 days and prn. Reposition at least every 2hours or as tolerated. Off-load heels with pillow. (2) Electrolyte imbalance (3) Leukocytosis Assessment & Plan: cont abx trend labs will monitor thank you (4) Sepsis Assessment & Plan: UA with UTI pending cultures CXR with possible PNA leukocytosis trending down low grade fevers tachycardia -Cont IV abx as per ID -trend labs will follow with recs thank you Skyler Salmon Jun 27, 2018 13:38
[2018-06-27] MEDS: Meropenem 500 MG in NS 55 ML IVPB SCH (14:13)
--- NOTE | 2018-06-27 14:32 | Infectious Diseases Prog Note ---
Assessment/Plan Problems: (1) Aspiration pneumonia Assessment & Plan: with right basal atelectasis , await sputum culture and continue meropenem, with vancomycin . aspiration precaution (2) Fistula, arteriovenous, acquired Assessment & Plan: with possible site infection, for exploration by vascular, continue vancomycin and meropenem pending cultures (3) Sepsis Assessment & Plan: with leukocytosis , due to the above, continue vancomycin and meropenem pending cultures (4) Diabetes Assessment & Plan: recommend tight glycemic control (5) Dialysis patient Assessment & Plan: S/P AV fistula exploration and removal , already on wide spectrum antibiotics .renal and vascular are following (6) Decubitus ulcer of right ischial area Assessment & Plan: looks dry and not infected, keep off loading, and local wound care as per hospital protocol (7) UTI (urinary tract infection) Assessment & Plan: on meropenem empirically pending culture Subjective ROS Limited/Unobtainable: Yes Allergies: Coded Allergies: No Known Allergies (Unverified , 04/14/16) Subjective He is on ventilstor through his trach , awake and comfortable, congested, afebrile, had left arm fistula removed . no significant secretions Objective Vital Signs Last 24 Hour Vital Signs Date Time Temp Pulse Resp B/P (MAP) Pulse Ox O2 Delivery O2 Flow Rate FiO2 06/27/18 13:15 T-piece 10.0 35 06/27/18 13:15 98 T-piece 10.0 35 06/27/18 12:00 10.0 35 06/27/18 12:00 99 06/27/18 12:00 99.3 100 20 85/53 (64) 99 06/27/18 09:00 T-piece 10.0 06/27/18 08:00 99.5 108 20 119/58 (78) 98 06/27/18 08:00 10.0 35 06/27/18 08:00 108 06/27/18 06:57 99 T-piece 10.0 35 06/27/18 06:57 T-piece 10.0 35 06/27/18 04:08 10.0 35 06/27/18 04:00 99.1 118 20 91/58 (69) 98 06/27/18 04:00 118 06/27/18 00:00 119 06/27/18 00:00 99.8 119 17 90/59 (69) 98 06/26/18 23:58 T-piece 12.0 40 06/26/18 23:57 98 T-piece 12.0 40 06/26/18 21:00 T-piece 10.0 06/26/18 20:00 98.9 116 18 91/52 (65) 100 06/26/18 20:00 10.0 40 06/26/18 20:00 114 06/26/18 19:12 T-piece 12.0 40 06/26/18 19:11 97 T-piece 12.0 40 06/26/18 16:00 10.0 40 06/26/18 16:00 10.0 40 06/26/18 16:00 118 06/26/18 16:00 98.0 101 22 95/59 (71) 100 06/26/18 15:32 102 Height (Feet): 5 Height (Inches): 8.00 Weight (Pounds): 142 General Appearance: WD/WN, no acute distress HEENT: normocephalic, atraumatic, anicteric, mucous membranes moist, pharynx normal, supple, no JVD, status post trach Respiratory/Chest: chest wall non-tender, normal breath sounds, no respiratory distress, no accessory muscle use, decreased breath sounds, crackles/rales Cardiovascular: normal peripheral pulses, normal rate, regular rhythm, no gallop/murmur, no JVD Abdomen: normal bowel sounds, soft, non tender, no organomegaly, non distended , no mass, no scars Genitourinary: normal external genitalia Extremities: no cyanosis, no clubbing Skin: no rash, no lesions, no ulcers Neurologic/Psychiatric: alert, responsive Lymphatic: no neck adenopathy, no groin adenopathy Musculoskeletal: normal muscle bulk, no effusion Microbiology Date/Time Source Procedure Growth Status 06/26/18 18:00 Straight Cath Urine Culture - Preliminary NO GROWTH Resulted Laboratory Tests Test 06/26/18 18:00 06/26/18 19:37 06/27/18 05:00 06/27/18 10:00 Urine Color Yellow Urine Appearance Cloudy Urine pH 5 (4.5-8.0) Urine Specific [place] 1.015 (1.005-1.035) Urine Protein 2+ (NEGATIVE) H Urine Glucose (UA) Negative (NEGATIVE) Urine Ketones Negative (NEGATIVE) Urine Blood 4+ (NEGATIVE) H Urine Nitrite Negative (NEGATIVE) Urine Bilirubin Negative (NEGATIVE) Urine Urobilinogen Normal MG/DL (0.0-1.0) Urine Leukocyte Esterase 3+ (NEGATIVE) H Urine RBC Tntc /HPF (0 - 0) H Urine WBC Tntc /HPF (0 - 0) H Urine Squamous Epithelial Cells Moderate /LPF (NONE/OCC) H Urine Bacteria Many /HPF (NONE) H Urine Yeast Many /HPF (NONE) H Troponin I 0.031 ng/mL (0.000-0.056) White Blood Count 13.6 K/UL (4.8-10.8) H Red Blood Count 2.53 M/UL (4.70-6.10) L Hemoglobin 8.3 G/DL (14.2-18.0) L Hematocrit 26.1 % (42.0-52.0) L Mean Corpuscular Volume 103 FL (80-99) H Mean Corpuscular Hemoglobin 33.0 PG (27.0-31.0) H Mean Corpuscular Hemoglobin Concent 31.9 G/DL (32.0-36.0) L Red Cell Distribution Width 17.5 % (11.6-14.8) H Platelet Count 199 K/UL (150-450) Mean Platelet Volume 8.6 FL (6.5-10.1) Neutrophils (%) (Auto) 67.1 % (45.0-75.0) Lymphocytes (%) (Auto) 19.2 % (20.0-45.0) L Monocytes (%) (Auto) 10.0 % (1.0-10.0) Eosinophils (%) (Auto) 2.8 % (0.0-3.0) Basophils (%) (Auto) 0.8 % (0.0-2.0) Erythrocyte Sedimentation Rate 85 MM/HR (0-20) H Prothrombin Time 11.3 SEC (9.30-11.50) Prothromb Time International Ratio 1.1 (0.9-1.1) Activated Partial Thromboplast Time 29 SEC (23-33) Sodium Level 142 MMOL/L (136-145) Potassium Level 3.2 MMOL/L (3.5-5.1) L Chloride Level 105 MMOL/L (98-107) Carbon Dioxide Level 28 MMOL/L (21-32) Anion Gap 9 mmol/L (5-15) Blood Urea Nitrogen 39 mg/dL (7-18) H Creatinine 3.0 MG/DL (0.55-1.30) H Estimat Glomerular Filtration Rate 20.9 mL/min (>60) Glucose Level 168 MG/DL (74-106) H Calcium Level 8.8 MG/DL (8.5-10.1) Total Bilirubin 0.3 MG/DL (0.2-1.0) Aspartate Amino Transf (AST/SGOT) 18 U/L (15-37) Alanine Aminotransferase (ALT/SGPT) 16 U/L (12-78) Alkaline Phosphatase 96 U/L (46-116) C-Reactive Protein, Quantitative 29.1 mg/dL (0.00-0.90) H Total Protein 6.9 G/DL (6.4-8.2) Albumin 2.6 G/DL (3.4-5.0) L Globulin 4.3 g/dL Albumin/Globulin Ratio 0.6 (1.0-2.7) L Random Vancomycin Level 16.2 ug/mL Current Medications Medications (Trade) Dose Ordered Sig/Xochilt Route PRN Reason Start Time Stop Time Status Last Admin Dose Admin Acetaminophen (Tylenol) 650 mg Q6H PRN GT Mild Pain/Temp > 100.5 06/25/18 11:45 07/25/18 11:44 06/25/18 21:53 Aspirin (ASA) 81 mg DAILY GT 06/26/18 09:00 07/26/18 08:59 06/27/18 08:54 Atorvastatin Calcium (Lipitor) 40 mg BEDTIME GT 06/25/18 21:00 07/25/18 20:59 06/26/18 21:17 Bisacodyl (Dulcolax) 10 mg DAILYPRN PRN RECTAL Constipation 06/25/18 11:45 07/25/18 11:44 Dextrose (Dextrose 50%) 25 ml Q30M PRN IV Hypoglycemia 06/25/18 11:45 07/25/18 11:44 Dextrose (Dextrose 50%) 50 ml Q30M PRN IV Hypoglycemia 06/25/18 11:45 07/25/18 11:44 Dextrose/Sodium Chloride 1,000 ml @ 40 mls/hr Q24H IV 06/26/18 13:00 07/26/18 12:59 06/27/18 12:51 Famotidine (Pepcid) 20 mg DAILY GT 06/26/18 09:00 07/26/18 08:59 06/27/18 08:54 Heparin Sodium (Porcine) (Heparin 5000 units/ml) 5,000 units EVERY 12 HOURS SUBQ 06/26/18 10:00 07/26/18 09:59 06/27/18 08:54 Insulin Aspart (NovoLOG) EVERY 6 HOURS SUBQ 06/26/18 12:00 07/25/18 20:59 06/27/18 12:49 Magnesium Hydroxide (Mom) 30 ml HSPRN PRN GT Constipation 06/25/18 11:45 07/25/18 11:44 Meropenem 500 mg/ Sodium Chloride 55 ml @ 110 mls/hr Q24H IVPB 06/26/18 13:00 07/01/18 12:59 06/27/18 14:13 Metoprolol Tartrate (Lopressor) 25 mg BEFORE DINNER GT 06/27/18 16:30 07/27/18 16:29 Ondansetron HCl (Zofran) 4 mg Q6H PRN IVP Nausea & Vomiting 06/25/18 23:45 07/25/18 23:44 Vancomycin HCl (Vanco rx to dose) 1 ea DAILY PRN MISC Per rx protocol 06/26/18 06:45 07/26/18 06:44 Vitamin B Complex/ Vit C/Folic Acid (Nephrovite) 1 tab DAILY GT 06/26/18 09:00 07/26/18 08:59 06/27/18 08:54 Zinc Sulfate (Zinc Sulfate) 220 mg DAILY GT 06/26/18 09:00 07/26/18 08:59 06/27/18 08:54 Devika Gaitan M.D. Jun 27, 2018 14:32
[2018-06-27 16:00] VITALS: BP 92/47
[2018-06-27] MEDS ORDERED: Vancomycin 1gm/D5W 275ml IVPB SCH ×2 (16:00)
[2018-06-27] MEDS ORDERED: fentaNYL 100 mcg/2 mL IV ONE (16:20)
[2018-06-27] MEDS ORDERED: Metoprolol 25mg tab GT SCH (16:30)
--- NOTE | 2018-06-27 17:10 | Cardiology Progress Note ---
Assessment/Plan Assessment/Plan 1. Hypotension. DC metoprolol, doubt that would affect his HR, start low dose midodrine, adjusting fluid removal during HD may help the situation. 2. Sinus tachycardia. This could be secondary to hypotension or could be secondary to the underlying sepsis. Subjective Subjective Still hypotensive. Sinus rhythm at rate of 99. Objective Last 24 Hour Vital Signs Date Time Temp Pulse Resp B/P (MAP) Pulse Ox O2 Delivery O2 Flow Rate FiO2 06/27/18 16:30 99 85/49 06/27/18 16:00 10.0 35 06/27/18 16:00 97.7 102 24 92/47 (62) 99 06/27/18 13:15 T-piece 10.0 35 06/27/18 13:15 98 T-piece 10.0 35 06/27/18 12:00 10.0 35 06/27/18 12:00 99 06/27/18 12:00 99.3 100 20 85/53 (64) 99 06/27/18 09:00 T-piece 10.0 06/27/18 08:00 99.5 108 20 119/58 (78) 98 06/27/18 08:00 10.0 35 06/27/18 08:00 108 06/27/18 06:57 99 T-piece 10.0 35 06/27/18 06:57 T-piece 10.0 35 06/27/18 04:08 10.0 35 06/27/18 04:00 99.1 118 20 91/58 (69) 98 06/27/18 04:00 118 06/27/18 00:00 119 06/27/18 00:00 99.8 119 17 90/59 (69) 98 06/26/18 23:58 T-piece 12.0 40 06/26/18 23:57 98 T-piece 12.0 40 06/26/18 21:00 T-piece 10.0 06/26/18 20:00 98.9 116 18 91/52 (65) 100 06/26/18 20:00 10.0 40 06/26/18 20:00 114 06/26/18 19:12 T-piece 12.0 40 06/26/18 19:11 97 T-piece 12.0 40 Intake and Output 06/26/18 06/27/18 19:00 07:00 Intake Total 804.667 ml 1080 ml Output Total 350 ml Balance 804.667 ml 730 ml Intake Free Water 200 ml 600 ml IV Total 434.667 ml Tube Feeding 120 ml 480 ml Other 50 ml Output Urine Total 350 ml # Voids 2 # Bowel Movements 1 2D Echo: EF 65%, Grade I LVDD, Mild AR Laboratory Tests Test 06/26/18 18:00 06/26/18 19:37 06/27/18 05:00 06/27/18 10:00 Urine Color Yellow Urine Appearance Cloudy Urine pH 5 (4.5-8.0) Urine Specific [place] 1.015 (1.005-1.035) Urine Protein 2+ (NEGATIVE) H Urine Glucose (UA) Negative (NEGATIVE) Urine Ketones Negative (NEGATIVE) Urine Blood 4+ (NEGATIVE) H Urine Nitrite Negative (NEGATIVE) Urine Bilirubin Negative (NEGATIVE) Urine Urobilinogen Normal MG/DL (0.0-1.0) Urine Leukocyte Esterase 3+ (NEGATIVE) H Urine RBC Tntc /HPF (0 - 0) H Urine WBC Tntc /HPF (0 - 0) H Urine Squamous Epithelial Cells Moderate /LPF (NONE/OCC) H Urine Bacteria Many /HPF (NONE) H Urine Yeast Many /HPF (NONE) H Troponin I 0.031 ng/mL (0.000-0.056) White Blood Count 13.6 K/UL (4.8-10.8) H Red Blood Count 2.53 M/UL (4.70-6.10) L Hemoglobin 8.3 G/DL (14.2-18.0) L Hematocrit 26.1 % (42.0-52.0) L Mean Corpuscular Volume 103 FL (80-99) H Mean Corpuscular Hemoglobin 33.0 PG (27.0-31.0) H Mean Corpuscular Hemoglobin Concent 31.9 G/DL (32.0-36.0) L Red Cell Distribution Width 17.5 % (11.6-14.8) H Platelet Count 199 K/UL (150-450) Mean Platelet Volume 8.6 FL (6.5-10.1) Neutrophils (%) (Auto) 67.1 % (45.0-75.0) Lymphocytes (%) (Auto) 19.2 % (20.0-45.0) L Monocytes (%) (Auto) 10.0 % (1.0-10.0) Eosinophils (%) (Auto) 2.8 % (0.0-3.0) Basophils (%) (Auto) 0.8 % (0.0-2.0) Erythrocyte Sedimentation Rate 85 MM/HR (0-20) H Prothrombin Time 11.3 SEC (9.30-11.50) Prothromb Time International Ratio 1.1 (0.9-1.1) Activated Partial Thromboplast Time 29 SEC (23-33) Sodium Level 142 MMOL/L (136-145) Potassium Level 3.2 MMOL/L (3.5-5.1) L Chloride Level 105 MMOL/L (98-107) Carbon Dioxide Level 28 MMOL/L (21-32) Anion Gap 9 mmol/L (5-15) Blood Urea Nitrogen 39 mg/dL (7-18) H Creatinine 3.0 MG/DL (0.55-1.30) H Estimat Glomerular Filtration Rate 20.9 mL/min (>60) Glucose Level 168 MG/DL (74-106) H Calcium Level 8.8 MG/DL (8.5-10.1) Total Bilirubin 0.3 MG/DL (0.2-1.0) Aspartate Amino Transf (AST/SGOT) 18 U/L (15-37) Alanine Aminotransferase (ALT/SGPT) 16 U/L (12-78) Alkaline Phosphatase 96 U/L (46-116) C-Reactive Protein, Quantitative 29.1 mg/dL (0.00-0.90) H Total Protein 6.9 G/DL (6.4-8.2) Albumin 2.6 G/DL (3.4-5.0) L Globulin 4.3 g/dL Albumin/Globulin Ratio 0.6 (1.0-2.7) L Random Vancomycin Level 16.2 ug/mL Microbiology Date/Time Source Procedure Growth Status 06/26/18 18:00 Straight Cath Urine Culture - Preliminary NO GROWTH Resulted Objective HEENT: Atraumatic and normocephalic. Anicteric. Pupils are equal, round, and reactive to light and accommodation. Conjunctival pallor is present. NECK: JVP cannot be assessed. No carotid bruit. Carotid upstroke is 2+ bilaterally. Positive for tracheostomy tube. CARDIOVASCULAR: Normal S1, S2. Regular rate and rhythm. Tachycardic. No murmurs, gallops, or rubs. LUNGS: Clear to auscultation bilaterally. ABDOMEN: Soft, nontender, and nondistended. No hepatosplenomegaly. Positive bowel sounds. Presence of a G-tube. EXTREMITIES: No evidence of edema, clubbing, or cyanosis. Aleks Bess MD Jun 27, 2018 17:10
--- NOTE | 2018-06-27 18:15 | Consultation ---
DATE OF CONSULTATION: 06/27/2018 INFECTIOUS DISEASE CONSULTATION CONSULTING PHYSICIAN: Devika Gaitan M.D. REQUESTING PHYSICIAN: Hever Olivarez M.D. REASON FOR CONSULTATION: Pneumonia, sepsis, AV fistula malfunction with possible infection. Recommendation for antibiotics treatment. HISTORY OF PRESENT ILLNESS: The patient is a 68-year-old male with past medical history of chronic respiratory failure, status post trach, and end-stage renal disease, on hemodialysis with left upper extremity fistula malfunction, was brought in to [facility] for exploration of his left arm AV fistula, and possible revision. The patient was found to have significant leukocytosis upon admission concerning for sepsis. Chest x-ray showed right lower lobe atelectases with possible consolidation suggestive of pneumonia. Fistula site looks red and erythematous, which was concerning for infection. So, Infectious Disease consultation was requested for antibiotics treatment and further management. As of note, the patient has a trach. The patient cannot provide any history at this point. History was mainly obtained from the medical record and nursing staff. PAST MEDICAL HISTORY: Significant for CVA, end-stage renal disease, dysphagia encephalopathy, and pressure wounds mainly on the hip and heels. MEDICATIONS: The patient was started on vancomycin. For the rest of his medications, please refer to MAR. ALLERGIES: He has no known drug allergies. SOCIAL HISTORY: [facility] On chronic disability. No recent drugs, tobacco, or alcohol. FAMILY HISTORY: Unable to obtain. REVIEW OF SYSTEMS: A 14-point of system reviewed were all negative apart from the one I mentioned above in my History and Physical. PHYSICAL EXAMINATION: VITAL SIGNS: Temperature 97.2, pulse 118, respirations 14, blood pressure 105/68, and pulse ox 100% on 40% oxygen via trach. GENERAL: A middle-aged male, cachectic with tracheostomy, on ventilator, resting in bed, mildly congested, not in acute distress. HEENT: Normocephalic and atraumatic. Pupils are reactive to light. Pale sclerae. Moist oral mucosa. No exudate or thrush. NECK: Supple. No lymphadenopathy. Trach site looks clean and intact. CARDIOVASCULAR: Regular rate and rhythm. No murmur or gallop. LUNGS: He has diminished breathing sounds at the bases mainly on the right lower lobe with crackles. No wheezing or rhonchi. ABDOMEN: Soft, nontender, and nondistended. Normal bowel sounds. PEG tube site looks intact. No bleeding or drainage. EXTREMITIES: No edema or cyanosis. Deep tissue injury on both heels and right hip pressure wound about stage II, dry, with no drainage or sign of infection. MUSCULOSKELETAL: He has muscle atrophy with decreased range of motion in the lower extremities. LABORATORY AND DIAGNOSTIC DATA: White count of 22.8, hemoglobin of 10.2, platelet count of 239,000, and neutrophils of 83. BUN of 74 and creatinine of 4.7. Urinalysis showed +3 leukocyte esterase, wbc too numerous to count, and many bacteria. MICROBIOLOGY: Urine culture so far showing no growth. Blood culture is pending. IMAGING: Chest x-ray showed right lower lobe atelectases. ASSESSMENT AND RECOMMENDATION: 1. Right lower lobe aspiration pneumonia. We will start the patient on meropenem. Continue vancomycin empiric coverage and send sputum culture with aspiration precaution. 2. Urinary tract infection. The patient will be on meropenem pending urine culture results. Need to change Zimmerman. 3. Fistula AV in the left upper extremity with malfunction and possible local infection. The patient is going for exploration and possible removal of the fistula and debridement. 4. Sepsis due to the above with leukocytosis. Continue wide-spectrum antibiotics pending culture. 5. Diabetes. Recommend tight glycemic control to keep blood glucose between 100 to 130. 6. Dialysis patient with possible AV fistula failure and infection. Renal and Vascular are following. 7. Decubitus ulcer of the right ischial area clean and dry at this point. Continue local wound care and dressing change as per protocol. Continue offloading. Thank you for the consult. ID will continue to follow. Devika Gaitan M.D. DR: SHIRLENE JOB#: [id number] CC:
[2018-06-27 20:00] VITALS: BP 86/49
[2018-06-27] MEDS: Atorvastatin 20mg tab GT SCH (21:57)
[2018-06-28] VITALS: BP 92/59
[2018-06-28] MEDS: NovoLOG Insulin Flexpen SUBQ SCH ×4 (00:02→17:16)
[2018-06-28 04:00] VITALS: BP 88/53
[2018-06-28 06:52] LABS: HEMATOCRIT 23.9 % (42.0-52.0); HEMOGLOBIN 7.7 G/DL (14.2-18.0); MEAN CORPUSCULAR VOLUME 103 FL (80-99); PLATELET COUNT 199 K/UL (150-450); RED BLOOD COUNT 2.33 M/UL (4.70-6.10); RED CELL DISTRIBUTION WIDTH 17.6 % (11.6-14.8); WHITE BLOOD COUNT 10.7 K/UL (4.8-10.8)
[2018-06-28 07:12] LABS: ANION GAP 7 mmol/L (5-15); BLOOD UREA NITROGEN 33 mg/dL (7-18); CALCIUM 8.7 MG/DL (8.5-10.1); CARBON DIOXIDE 27 MMOL/L (21-32); CHLORIDE 106 MMOL/L (98-107); CREATININE 2.5 MG/DL (0.55-1.30); POTASSIUM 3.3 MMOL/L (3.5-5.1); SODIUM 140 MMOL/L (136-145)
[2018-06-28 08:00] VITALS: BP 88/53
[2018-06-28] MEDS: Zinc Sulfate 220mg cap GT SCH (08:16)
[2018-06-28] MEDS: Nephrovite tab (Rena-Vite) GT SCH (08:16)
[2018-06-28] MEDS: Heparin 5000 units/ml inj SUBQ SCH ×2 (08:17→20:47)
[2018-06-28] MEDS: Aspirin Baby 81mg GT SCH (08:17)
--- NOTE | 2018-06-28 10:52 | General Progress Note ---
Assessment/Plan Assessment/Plan S: not verbaly communicative O: appears comfortable, eyes open, not verbal, at baseline PHYSICAL EXAMINATION: HEAD AND NECK: Atraumatic and normocephalic. CHEST: Diffuse bronchial breathing sounds.At/NC, T-bar in place with Trach, Chest: Diffuse bronchial bs, HEART: S1 and S2. Regular rate and rhythm.ABDOMEN : Soft. No organomegaly, positive for the tracheostomy T-bar.NEUROLOGY: Awake , alert and oriented x1. MS: Post exploration of Left Arm AV/F, covered with dressing Meds: reviewed, including Meropenem ASSESSMENT: 1. Sepsis: UTI, wound, PNA ! ? 2- Acute encephalopathy : Resolved, at base line 2. Post exploartion of the Left-sided the AV fistula. 3. End-stage renal disease, on hemodialysis. 4. Hypertension. 5. Diabetes. 6. Acute Anemia 6. GI and DVT prophylaxis. 7. Hypertension PLAN OF CARE: c/w empirical abx will test Occult blood in stool ok to transfuse NS bolus PRN will check Fasting Cortisol Subjective Allergies: Coded Allergies: No Known Allergies (Unverified , 04/14/16) Objective Last 24 Hour Vital Signs Date Time Temp Pulse Resp B/P (MAP) Pulse Ox O2 Delivery O2 Flow Rate FiO2 06/28/18 09:00 T-piece 10.0 06/28/18 08:00 98.6 83 22 88/53 (65) 100 06/28/18 08:00 81 06/28/18 08:00 10.0 35 06/28/18 06:58 T-piece 10.0 35 06/28/18 06:58 100 T-piece 10.0 35 06/28/18 04:00 99.4 84 18 88/53 (65) 96 06/28/18 04:00 83 06/28/18 04:00 10.0 35 06/28/18 01:18 T-piece 10.0 35 06/28/18 01:18 100 T-piece 10.0 35 06/28/18 00:00 86 06/28/18 00:00 98.8 90 16 92/59 (70) 100 06/27/18 21:00 T-piece 10.0 06/27/18 20:00 98.3 92 18 86/49 (61) 100 06/27/18 20:00 10.0 35 06/27/18 19:46 99 T-piece 10.0 35 06/27/18 19:46 T-piece 10.0 35 06/27/18 16:30 99 85/49 06/27/18 16:00 102 06/27/18 16:00 10.0 35 06/27/18 16:00 97.7 102 24 92/47 (62) 99 06/27/18 13:15 T-piece 10.0 35 06/27/18 13:15 98 T-piece 10.0 35 06/27/18 12:00 10.0 35 06/27/18 12:00 99 06/27/18 12:00 99.3 100 20 85/53 (64) 99 Intake and Output 06/27/18 06/28/18 18:59 06:59 Intake Total 566 ml Output Total 350 ml 260 ml Balance -350 ml 306 ml IV Total 566 ml Output Urine Total 350 ml 260 ml # Bowel Movements 1 Laboratory Tests 06/28/18 04:50: White Blood Count 10.7, Red Blood Count 2.33L, Hemoglobin 7.7L, Hematocrit 23.9L , Mean Corpuscular Volume 103H, Mean Corpuscular Hemoglobin 33.0H, Mean Corpuscular Hemoglobin Concent 32.2, Red Cell Distribution Width 17.6H, Platelet Count 199, Mean Platelet Volume 8.1, Neutrophils (%) (Auto) , Lymphocytes (%) (Auto) , Monocytes (%) (Auto) , Eosinophils (%) (Auto) , Basophils (%) (Auto) , Differential Total Cells Counted 100, Neutrophils % ( Manual) 74, Lymphocytes % (Manual) 14L, Monocytes % (Manual) 7, Eosinophils % ( Manual) 5H, Basophils % (Manual) 0, Band Neutrophils 0, Platelet Estimate Adequate, Platelet Morphology Normal, Polychromasia 2+, Hypochromasia 1+, Anisocytosis 1+, Macrocytosis 1+, Sodium Level 140, Potassium Level 3.3L, Chloride Level 106, Carbon Dioxide Level 27, Anion Gap 7, Blood Urea Nitrogen 33H, Creatinine 2.5H, Estimat Glomerular Filtration Rate 25.8, Glucose Level 148H, Calcium Level 8.7 Height (Feet): 5 Height (Inches): 8.00 Weight (Pounds): 143 Hever Olivarez MD Jun 28, 2018 10:52
[2018-06-28 12:00] VITALS: BP 93/66
[2018-06-28] MEDS: D5NS 1,000 ML IV SCH ×2 (13:00→17:22)
--- NOTE | 2018-06-28 13:33 | Surgery Progress Note ---
Surgery Progress Note Subjective Additional Comments no acute events. resting comfortable. Objective Last 24 Hour Vital Signs Date Time Temp Pulse Resp B/P (MAP) Pulse Ox O2 Delivery O2 Flow Rate FiO2 06/28/18 12:50 100 T-piece 10.0 35 06/28/18 12:50 T-piece 10.0 35 06/28/18 09:00 T-piece 10.0 06/28/18 08:00 98.6 83 22 88/53 (65) 100 06/28/18 08:00 81 06/28/18 08:00 10.0 35 06/28/18 06:58 T-piece 10.0 35 06/28/18 06:58 100 T-piece 10.0 35 06/28/18 04:00 99.4 84 18 88/53 (65) 96 06/28/18 04:00 83 06/28/18 04:00 10.0 35 06/28/18 01:18 T-piece 10.0 35 06/28/18 01:18 100 T-piece 10.0 35 06/28/18 00:00 86 06/28/18 00:00 98.8 90 16 92/59 (70) 100 06/27/18 21:00 T-piece 10.0 06/27/18 20:00 98.3 92 18 86/49 (61) 100 06/27/18 20:00 10.0 35 06/27/18 19:46 99 T-piece 10.0 35 06/27/18 19:46 T-piece 10.0 35 06/27/18 16:30 99 85/49 06/27/18 16:00 102 06/27/18 16:00 10.0 35 06/27/18 16:00 97.7 102 24 92/47 (62) 99 I&O Intake and Output 06/27/18 06/28/18 18:59 06:59 Intake Total 566 ml Output Total 350 ml 260 ml Balance -350 ml 306 ml IV Total 566 ml Output Urine Total 350 ml 260 ml # Bowel Movements 1 Dressing: other Wound: other Drains: other Cardiovascular: RSR Respiratory: decreased breath sounds Abdomen: soft, present bowel sounds, non-distended Extremities: no cyanosis Laboratory Tests Test 06/28/18 04:50 White Blood Count 10.7 K/UL (4.8-10.8) Red Blood Count 2.33 M/UL (4.70-6.10) L Hemoglobin 7.7 G/DL (14.2-18.0) L Hematocrit 23.9 % (42.0-52.0) L Mean Corpuscular Volume 103 FL (80-99) H Mean Corpuscular Hemoglobin 33.0 PG (27.0-31.0) H Mean Corpuscular Hemoglobin Concent 32.2 G/DL (32.0-36.0) Red Cell Distribution Width 17.6 % (11.6-14.8) H Platelet Count 199 K/UL (150-450) Mean Platelet Volume 8.1 FL (6.5-10.1) Neutrophils (%) (Auto) % (45.0-75.0) Lymphocytes (%) (Auto) % (20.0-45.0) Monocytes (%) (Auto) % (1.0-10.0) Eosinophils (%) (Auto) % (0.0-3.0) Basophils (%) (Auto) % (0.0-2.0) Differential Total Cells Counted 100 Neutrophils % (Manual) 74 % (45-75) Lymphocytes % (Manual) 14 % (20-45) L Monocytes % (Manual) 7 % (1-10) Eosinophils % (Manual) 5 % (0-3) H Basophils % (Manual) 0 % (0-2) Band Neutrophils 0 % (0-8) Platelet Estimate Adequate Platelet Morphology Normal Polychromasia 2+ Hypochromasia 1+ Anisocytosis 1+ Macrocytosis 1+ Sodium Level 140 MMOL/L (136-145) Potassium Level 3.3 MMOL/L (3.5-5.1) L Chloride Level 106 MMOL/L (98-107) Carbon Dioxide Level 27 MMOL/L (21-32) Anion Gap 7 mmol/L (5-15) Blood Urea Nitrogen 33 mg/dL (7-18) H Creatinine 2.5 MG/DL (0.55-1.30) H Estimat Glomerular Filtration Rate 25.8 mL/min (>60) Glucose Level 148 MG/DL (74-106) H Calcium Level 8.7 MG/DL (8.5-10.1) Plan Problems: (1) Decubitus ulcer of right ischial area Assessment & Plan: Pt presented on admission with resolving pressure injury to R ischium. Base of wound with trace slough, surrounding erythema.Epithelial scarring from previous wounds noted periwound. Hyperpigmentation scarring noted to sacrum. Intertriginous dermatitis noted to cleft of buttocks ,erythema with satellite lesions noted.Small amt sanguineous exudate. Non-blanchable erythema R heel with fluctuance. Dry scar noted centrally. L heel boggy-pink and blanchable. Skin dryness noted and Numerous scratch duckworth noted to L upper ext, abd and upper thighs. Tx.Plan: Cleanse R ischial wound with Saline. Apply Therahoney. Cover with Optifoam drsg. Change every 3 days and prn. Apply Cavilon To L ear daily. Apply Triad Paste to cleft of buttocks with each perineal care. Apply Cavilon Skin Barrier to both heels. Cover each heel with Optifoam drsg. Change every 7 days and prn. Reposition at least every 2hours or as tolerated. Off-load heels with pillow. (2) Electrolyte imbalance (3) Leukocytosis Assessment & Plan: cont abx appreciate ID input trend labs will monitor thank you (4) Sepsis Assessment & Plan: UA with UTI pending cultures CXR with possible PNA leukocytosis trending down low grade fevers tachycardia -Cont IV abx as per ID -trend labs will follow with recs thank you Skyler Salmon Jun 28, 2018 13:33
[2018-06-28 16:00] VITALS: BP 92/47
[2018-06-28] MEDS ORDERED: Sterile Water Irrig 1000ml IRRIG ONE (16:36)
--- NOTE | 2018-06-28 16:36 | Nephrology Progress Note ---
Assessment/Plan Problem List: (1) Diabetes Assessment: - follow bs closely (2) Renal insufficiency Assessment: - next hd in am -watch volume after transfusion (3) Sepsis Assessment: - wbc count better? source, has uti,? wound infection, seen by surgery (4) History of CVA (cerebrovascular accident) (5) Pneumonia Assessment: - cxr noted, on abx, hhn (6) Fistula, arteriovenous, acquired Assessment: - await maturation (7) Dialysis patient (8) Heel sore Assessment: -wound care (9) Leukocytosis Assessment: -bettet on iv abx Assessment Anemia- transfuse prbc, stool ob, ppi Subjective ROS Limited/Unobtainable: Yes Neurologic/Psychiatric: Reports: pre-existing deficit Subjective pt seen and examined non verbal wbc count better last hd 04/28 prbc ordered Objective Objective Last 24 Hour Vital Signs Date Time Temp Pulse Resp B/P (MAP) Pulse Ox O2 Delivery O2 Flow Rate FiO2 06/28/18 16:00 98.3 74 22 92/47 (62) 99 06/28/18 16:00 10.0 35 06/28/18 12:50 100 T-piece 10.0 35 06/28/18 12:50 T-piece 10.0 35 06/28/18 12:00 78 06/28/18 12:00 10.0 35 06/28/18 12:00 97.7 86 24 93/66 (75) 97 06/28/18 09:00 T-piece 10.0 06/28/18 08:00 98.6 83 22 88/53 (65) 100 06/28/18 08:00 81 06/28/18 08:00 10.0 35 06/28/18 06:58 T-piece 10.0 35 06/28/18 06:58 100 T-piece 10.0 35 06/28/18 04:00 99.4 84 18 88/53 (65) 96 06/28/18 04:00 83 06/28/18 04:00 10.0 35 06/28/18 01:18 T-piece 10.0 35 06/28/18 01:18 100 T-piece 10.0 35 06/28/18 00:00 86 06/28/18 00:00 98.8 90 16 92/59 (70) 100 06/27/18 21:00 T-piece 10.0 06/27/18 20:00 98.3 92 18 86/49 (61) 100 06/27/18 20:00 10.0 35 06/27/18 19:46 99 T-piece 10.0 35 06/27/18 19:46 T-piece 10.0 35 Intake and Output 06/27/18 06/28/18 19:00 07:00 Intake Total 566 ml Output Total 350 ml 260 ml Balance -350 ml 306 ml IV Total 566 ml Output Urine Total 350 ml 260 ml # Bowel Movements 1 Laboratory Tests 06/28/18 04:50: White Blood Count 10.7, Red Blood Count 2.33L, Hemoglobin 7.7L, Hematocrit 23.9L , Mean Corpuscular Volume 103H, Mean Corpuscular Hemoglobin 33.0H, Mean Corpuscular Hemoglobin Concent 32.2, Red Cell Distribution Width 17.6H, Platelet Count 199, Mean Platelet Volume 8.1, Neutrophils (%) (Auto) , Lymphocytes (%) (Auto) , Monocytes (%) (Auto) , Eosinophils (%) (Auto) , Basophils (%) (Auto) , Differential Total Cells Counted 100, Neutrophils % ( Manual) 74, Lymphocytes % (Manual) 14L, Monocytes % (Manual) 7, Eosinophils % ( Manual) 5H, Basophils % (Manual) 0, Band Neutrophils 0, Platelet Estimate Adequate, Platelet Morphology Normal, Polychromasia 2+, Hypochromasia 1+, Anisocytosis 1+, Macrocytosis 1+, Sodium Level 140, Potassium Level 3.3L, Chloride Level 106, Carbon Dioxide Level 27, Anion Gap 7, Blood Urea Nitrogen 33H, Creatinine 2.5H, Estimat Glomerular Filtration Rate 25.8, Glucose Level 148H, Calcium Level 8.7 Height (Feet): 5 Height (Inches): 8.00 Weight (Pounds): 143 General Appearance: confused EENT: PERRL/EOMI Neck: non-tender Respiratory/Chest: decreased breath sounds Abdomen: normal bowel sounds, soft Neurologic: rn lactation II-XII grossly normal Demarco Griffin M.D. Jun 28, 2018 16:35
--- NOTE | 2018-06-28 16:52 | Infectious Diseases Prog Note ---
Assessment/Plan Problems: (1) Aspiration pneumonia Assessment & Plan: with right basal atelectasis , await sputum culture and continue meropenem, with vancomycin . aspiration precaution (2) Fistula, arteriovenous, acquired Assessment & Plan: with possible site infection, for exploration by vascular, continue vancomycin and meropenem pending cultures (3) Sepsis Assessment & Plan: with leukocytosis , due to the above, continue vancomycin and meropenem pending cultures (4) Diabetes Assessment & Plan: recommend tight glycemic control (5) Dialysis patient Assessment & Plan: S/P AV fistula exploration and removal , already on wide spectrum antibiotics .renal and vascular are following (6) Decubitus ulcer of right ischial area Assessment & Plan: looks dry and not infected, keep off loading, and local wound care as per hospital protocol (7) UTI (urinary tract infection) Assessment & Plan: on meropenem empirically pending culture Subjective ROS Limited/Unobtainable: Yes Allergies: Coded Allergies: No Known Allergies (Unverified , 04/14/16) Subjective He is on ventilstor through his trach , awake and comfortable, congested, afebrile, had left arm fistula removed . no significant secretions Objective Vital Signs Last 24 Hour Vital Signs Date Time Temp Pulse Resp B/P (MAP) Pulse Ox O2 Delivery O2 Flow Rate FiO2 06/28/18 16:00 98.3 74 22 92/47 (62) 99 06/28/18 16:00 10.0 35 06/28/18 12:50 100 T-piece 10.0 35 06/28/18 12:50 T-piece 10.0 35 06/28/18 12:00 78 06/28/18 12:00 10.0 35 06/28/18 12:00 97.7 86 24 93/66 (75) 97 06/28/18 09:00 T-piece 10.0 06/28/18 08:00 98.6 83 22 88/53 (65) 100 06/28/18 08:00 81 06/28/18 08:00 10.0 35 06/28/18 06:58 T-piece 10.0 35 06/28/18 06:58 100 T-piece 10.0 35 06/28/18 04:00 99.4 84 18 88/53 (65) 96 06/28/18 04:00 83 06/28/18 04:00 10.0 35 06/28/18 01:18 T-piece 10.0 35 06/28/18 01:18 100 T-piece 10.0 35 06/28/18 00:00 86 06/28/18 00:00 98.8 90 16 92/59 (70) 100 06/27/18 21:00 T-piece 10.0 06/27/18 20:00 98.3 92 18 86/49 (61) 100 06/27/18 20:00 10.0 35 06/27/18 19:46 99 T-piece 10.0 35 06/27/18 19:46 T-piece 10.0 35 Height (Feet): 5 Height (Inches): 8.00 Weight (Pounds): 143 General Appearance: no acute distress, cachetic HEENT: normocephalic, atraumatic, anicteric, mucous membranes moist, EOMI, supple, no JVD, status post trach Respiratory/Chest: chest wall non-tender, no respiratory distress, no accessory muscle use, decreased breath sounds, crackles/rales Cardiovascular: normal peripheral pulses, normal rate, regular rhythm, no gallop/murmur, no JVD Abdomen: normal bowel sounds, soft, non tender, no organomegaly, non distended , no mass, no scars Genitourinary: normal external genitalia Extremities: no cyanosis, no clubbing Skin: no rash, no lesions, no ulcers Neurologic/Psychiatric: alert Lymphatic: no neck adenopathy, no groin adenopathy Musculoskeletal: normal muscle bulk, no effusion Microbiology Date/Time Source Procedure Growth Status 06/26/18 07:25 Blood Blood Culture - Preliminary NO GROWTH AFTER 24 HOURS Resulted 06/26/18 18:00 Straight Cath Urine Culture - Preliminary NO GROWTH AFTER 24 HOURS Resulted Laboratory Tests Test 06/28/18 04:50 White Blood Count 10.7 K/UL (4.8-10.8) Red Blood Count 2.33 M/UL (4.70-6.10) L Hemoglobin 7.7 G/DL (14.2-18.0) L Hematocrit 23.9 % (42.0-52.0) L Mean Corpuscular Volume 103 FL (80-99) H Mean Corpuscular Hemoglobin 33.0 PG (27.0-31.0) H Mean Corpuscular Hemoglobin Concent 32.2 G/DL (32.0-36.0) Red Cell Distribution Width 17.6 % (11.6-14.8) H Platelet Count 199 K/UL (150-450) Mean Platelet Volume 8.1 FL (6.5-10.1) Neutrophils (%) (Auto) % (45.0-75.0) Lymphocytes (%) (Auto) % (20.0-45.0) Monocytes (%) (Auto) % (1.0-10.0) Eosinophils (%) (Auto) % (0.0-3.0) Basophils (%) (Auto) % (0.0-2.0) Differential Total Cells Counted 100 Neutrophils % (Manual) 74 % (45-75) Lymphocytes % (Manual) 14 % (20-45) L Monocytes % (Manual) 7 % (1-10) Eosinophils % (Manual) 5 % (0-3) H Basophils % (Manual) 0 % (0-2) Band Neutrophils 0 % (0-8) Platelet Estimate Adequate Platelet Morphology Normal Polychromasia 2+ Hypochromasia 1+ Anisocytosis 1+ Macrocytosis 1+ Sodium Level 140 MMOL/L (136-145) Potassium Level 3.3 MMOL/L (3.5-5.1) L Chloride Level 106 MMOL/L (98-107) Carbon Dioxide Level 27 MMOL/L (21-32) Anion Gap 7 mmol/L (5-15) Blood Urea Nitrogen 33 mg/dL (7-18) H Creatinine 2.5 MG/DL (0.55-1.30) H Estimat Glomerular Filtration Rate 25.8 mL/min (>60) Glucose Level 148 MG/DL (74-106) H Calcium Level 8.7 MG/DL (8.5-10.1) Current Medications Medications (Trade) Dose Ordered Sig/Xochilt Route PRN Reason Start Time Stop Time Status Last Admin Dose Admin Acetaminophen (Tylenol) 650 mg Q6H PRN GT Mild Pain/Temp > 100.5 06/25/18 11:45 07/25/18 11:44 06/25/18 21:53 Aspirin (ASA) 81 mg DAILY GT 06/26/18 09:00 07/26/18 08:59 06/28/18 08:17 Atorvastatin Calcium (Lipitor) 40 mg BEDTIME GT 06/25/18 21:00 07/25/18 20:59 06/27/18 21:57 Bisacodyl (Dulcolax) 10 mg DAILYPRN PRN RECTAL Constipation 06/25/18 11:45 07/25/18 11:44 Dextrose (Dextrose 50%) 25 ml Q30M PRN IV Hypoglycemia 06/25/18 11:45 07/25/18 11:44 Dextrose (Dextrose 50%) 50 ml Q30M PRN IV Hypoglycemia 06/25/18 11:45 07/25/18 11:44 Dextrose/Sodium Chloride 1,000 ml @ 40 mls/hr Q24H IV 06/26/18 13:00 07/26/18 12:59 06/27/18 12:51 Famotidine (Pepcid) 20 mg DAILY GT 06/26/18 09:00 07/26/18 08:59 06/28/18 08:17 Heparin Sodium (Porcine) (Heparin 5000 units/ml) 5,000 units EVERY 12 HOURS SUBQ 06/26/18 10:00 07/26/18 09:59 06/28/18 08:17 Insulin Aspart (NovoLOG) EVERY 6 HOURS SUBQ 06/26/18 12:00 07/25/18 20:59 06/28/18 13:01 Magnesium Hydroxide (Mom) 30 ml HSPRN PRN GT Constipation 06/25/18 11:45 07/25/18 11:44 Meropenem 500 mg/ Sodium Chloride 55 ml @ 110 mls/hr Q24H IVPB 06/26/18 13:00 07/01/18 12:59 06/27/18 14:13 Midodrine (Pro-Amatine) 2.5 mg BID ORAL 06/27/18 18:00 07/27/18 17:59 06/28/18 08:17 Ondansetron HCl (Zofran) 4 mg Q6H PRN IVP Nausea & Vomiting 06/25/18 23:45 07/25/18 23:44 Vancomycin HCl (Vanco rx to dose) 1 ea DAILY PRN MISC Per rx protocol 06/26/18 06:45 07/26/18 06:44 Vitamin B Complex/ Vit C/Folic Acid (Nephrovite) 1 tab DAILY GT 06/26/18 09:00 07/26/18 08:59 06/28/18 08:16 Zinc Sulfate (Zinc Sulfate) 220 mg DAILY GT 06/26/18 09:00 07/26/18 08:59 06/28/18 08:16 Devika Gaitan M.D. Jun 28, 2018 16:52
[2018-06-28] MEDS: Meropenem 500 MG in NS 55 ML IVPB SCH (17:14)
[2018-06-28 20:00] VITALS: BP 110/49
[2018-06-28] MEDS: Atorvastatin 20mg tab GT SCH (20:48)
[2018-06-29] VITALS: BP 102/53
[2018-06-29] MEDS: NovoLOG Insulin Flexpen SUBQ SCH ×4 (00:34→17:37)
[2018-06-29 04:00] VITALS: BP 110/58
[2018-06-29 08:00] VITALS: BP 117/62
[2018-06-29] MEDS: Aspirin Baby 81mg GT SCH (08:05)
[2018-06-29] MEDS: Zinc Sulfate 220mg cap GT SCH (08:05)
[2018-06-29] MEDS: Nephrovite tab (Rena-Vite) GT SCH (08:05)
[2018-06-29] MEDS: Heparin 5000 units/ml inj SUBQ SCH ×2 (08:07→21:14)
[2018-06-29 12:00] VITALS: BP 96/64
[2018-06-29] MEDS: D5NS 1,000 ML IV SCH (12:25)
--- NOTE | 2018-06-29 13:03 | General Progress Note ---
Assessment/Plan Assessment/Plan S: not verbaly communicative O: appears comfortable, eyes open, not verbal, at baseline PHYSICAL EXAMINATION: HEAD AND NECK: Atraumatic and normocephalic. CHEST: Diffuse bronchial breathing sounds.At/NC, T-bar in place with Trach, Chest: Diffuse bronchial bs, HEART: S1 and S2. Regular rate and rhythm.ABDOMEN : Soft. No organomegaly, positive for the tracheostomy T-bar.NEUROLOGY: Awake , alert and oriented x1. MS: Post exploration of Left Arm AV/F, covered with dressing Meds: reviewed, including Meropenem ASSESSMENT: 1. Sepsis: UTI, wound, PNA ! ? 2- Acute encephalopathy : Resolved, at base line 2. Post exploartion of the Left-sided the AV fistula. 3. End-stage renal disease, on hemodialysis. 4. Hypertension. 5. Diabetes. 6. Acute Anemia 6. GI and DVT prophylaxis. 7. Hypertension PLAN OF CARE: c/w empirical abx will test Occult blood in stool ok to transfuse NS bolus PRN will check Fasting Cortisol send STAT CBC Subjective Allergies: Coded Allergies: No Known Allergies (Unverified , 04/14/16) Objective Last 24 Hour Vital Signs Date Time Temp Pulse Resp B/P (MAP) Pulse Ox O2 Delivery O2 Flow Rate FiO2 06/29/18 12:00 97.3 88 22 96/64 (75) 99 06/29/18 12:00 10.0 35 06/29/18 09:00 T-piece 10.0 06/29/18 08:00 97.0 84 22 117/62 (80) 95 06/29/18 08:00 82 06/29/18 08:00 10.0 35 06/29/18 07:10 T-piece 10.0 35 06/29/18 07:10 98 T-piece 10.0 35 06/29/18 04:00 98.4 83 18 110/58 (75) 94 06/29/18 04:00 79 06/29/18 04:00 10.0 35 06/29/18 00:30 T-piece 10.0 35 06/29/18 00:30 100 T-piece 10.0 35 06/29/18 00:00 98.6 84 18 102/53 (69) 98 06/29/18 00:00 85 06/28/18 21:00 T-piece 10.0 4/14/19 20:00 81 06/28/18 20:00 99.2 88 18 110/49 (69) 100 06/28/18 20:00 10.0 35 06/28/18 19:58 100 T-piece 10.0 35 06/28/18 19:58 T-piece 10.0 35 06/28/18 16:00 98.3 74 22 92/47 (62) 99 06/28/18 16:00 10.0 35 06/28/18 16:00 72 Intake and Output 06/28/18 06/29/18 18:59 06:59 Intake Total 265 ml Output Total 400 ml 950 ml Balance -400 ml -685 ml IV Total 265 ml Output Urine Total 400 ml 950 ml # Bowel Movements 2 2 Laboratory Tests 06/28/18 17:30: Stool Occult Blood Negative 06/29/18 05:35: Cortisol AM Sample [Pending], Random Vancomycin Level 16.1 Height (Feet): 5 Height (Inches): 8.00 Weight (Pounds): 143 Hever Olivarez MD Jun 29, 2018 13:03
[2018-06-29 13:19] LABS: EOSINOPHILS % (AUTO) 5.1 % (0.0-3.0); HEMATOCRIT 29.9 % (42.0-52.0); LYMPHOCYTES % (AUTO) 20.2 % (20.0-45.0); MEAN CORPUSCULAR VOLUME 103 FL (80-99); MONOCYTES % (AUTO) 7.8 % (1.0-10.0); NEUTROPHILS % (AUTO) 65.9 % (45.0-75.0); PLATELET COUNT 213 K/UL (150-450); RED BLOOD COUNT 2.92 M/UL (4.70-6.10); RED CELL DISTRIBUTION WIDTH 18.6 % (11.6-14.8); WHITE BLOOD COUNT 11.4 K/UL (4.8-10.8)
--- NOTE | 2018-06-29 13:22 | Surgery Progress Note ---
Surgery Progress Note Subjective Additional Comments no acute events. exam stable. unchanged. labs noted. pending repeat cbc Objective Last 24 Hour Vital Signs Date Time Temp Pulse Resp B/P (MAP) Pulse Ox O2 Delivery O2 Flow Rate FiO2 06/29/18 12:00 86 06/29/18 12:00 97.3 88 22 96/64 (75) 99 06/29/18 12:00 10.0 35 06/29/18 09:00 T-piece 10.0 06/29/18 08:00 97.0 84 22 117/62 (80) 95 06/29/18 08:00 82 06/29/18 08:00 10.0 35 06/29/18 07:10 T-piece 10.0 35 06/29/18 07:10 98 T-piece 10.0 35 06/29/18 04:00 98.4 83 18 110/58 (75) 94 06/29/18 04:00 79 06/29/18 04:00 10.0 35 06/29/18 00:30 T-piece 10.0 35 06/29/18 00:30 100 T-piece 10.0 35 06/29/18 00:00 98.6 84 18 102/53 (69) 98 06/29/18 00:00 85 06/28/18 21:00 T-piece 10.0 06/28/18 20:00 81 06/28/18 20:00 99.2 88 18 110/49 (69) 100 06/28/18 20:00 10.0 35 06/28/18 19:58 100 T-piece 10.0 35 06/28/18 19:58 T-piece 10.0 35 06/28/18 16:00 98.3 74 22 92/47 (62) 99 06/28/18 16:00 10.0 35 06/28/18 16:00 72 I&O Intake and Output 06/28/18 06/29/18 19:00 07:00 Intake Total 265 ml Output Total 400 ml 950 ml Balance -400 ml -685 ml IV Total 265 ml Output Urine Total 400 ml 950 ml # Bowel Movements 2 2 Dressing: saturated Wound: other Drains: other Cardiovascular: RSR Respiratory: decreased breath sounds Abdomen: soft, present bowel sounds, non-distended Extremities: no cyanosis Laboratory Tests Test 06/28/18 17:30 06/29/18 05:30 06/29/18 05:35 Stool Occult Blood Negative (NEGATIVE) White Blood Count Pending Red Blood Count Pending Hemoglobin Pending Hematocrit Pending Mean Corpuscular Volume Pending Mean Corpuscular Hemoglobin Pending Mean Corpuscular Hemoglobin Concent Pending Red Cell Distribution Width Pending Platelet Count Pending Mean Platelet Volume Pending Neutrophils (%) (Auto) Pending Lymphocytes (%) (Auto) Pending Monocytes (%) (Auto) Pending Eosinophils (%) (Auto) Pending Basophils (%) (Auto) Pending Cortisol AM Sample Pending Random Vancomycin Level 16.1 ug/mL Plan Problems: (1) Decubitus ulcer of right ischial area Assessment & Plan: Pt presented on admission with resolving pressure injury to R ischium. Base of wound with trace slough, surrounding erythema.Epithelial scarring from previous wounds noted periwound. Hyperpigmentation scarring noted to sacrum. Intertriginous dermatitis noted to cleft of buttocks ,erythema with satellite lesions noted.Small amt sanguineous exudate. Non-blanchable erythema R heel with fluctuance. Dry scar noted centrally. L heel boggy-pink and blanchable. Skin dryness noted and Numerous scratch duckworth noted to L upper ext, abd and upper thighs. Tx.Plan: Cleanse R ischial wound with Saline. Apply Therahoney. Cover with Optifoam drsg. Change every 3 days and prn. Apply Cavilon To L ear daily. Apply Triad Paste to cleft of buttocks with each perineal care. Apply Cavilon Skin Barrier to both heels. Cover each heel with Optifoam drsg. Change every 7 days and prn. Reposition at least every 2hours or as tolerated. Off-load heels with pillow. (2) Electrolyte imbalance (3) Leukocytosis Assessment & Plan: cont abx appreciate ID input trend labs will monitor thank you (4) Sepsis Assessment & Plan: UA with UTI pending cultures CXR with possible PNA leukocytosis trending down low grade fevers tachycardia -Cont IV abx as per ID -trend labs will follow with recs thank you Skyler Salmon Jun 29, 2018 13:22
[2018-06-29 13:26] LABS: HEMOGLOBIN 9.5 G/DL (14.2-18.0)
[2018-06-29] MEDS: Meropenem 500 MG in NS 55 ML IVPB SCH (15:53)
[2018-06-29 16:00] VITALS: BP 108/81
--- NOTE | 2018-06-29 17:47 | Infectious Diseases Prog Note ---
Assessment/Plan Problems: (1) Aspiration pneumonia Assessment & Plan: with right basal atelectasis , continue meropenem, with vancomycin empirically for 10 days . aspiration precaution (2) Fistula, arteriovenous, acquired Assessment & Plan: with possible site infection, S/P exploration by vascular, continue vancomycin and meropenem pending cultures (3) Sepsis Assessment & Plan: with leukocytosis , due to the above, continue vancomycin and meropenem pending cultures (4) Diabetes Assessment & Plan: recommend tight glycemic control (5) Dialysis patient Assessment & Plan: S/P AV fistula exploration and removal , already on wide spectrum antibiotics .renal and vascular are following (6) Decubitus ulcer of right ischial area Assessment & Plan: looks dry and not infected, keep off loading, and local wound care as per hospital protocol (7) UTI (urinary tract infection) Assessment & Plan: on meropenem empirically pending culture Subjective ROS Limited/Unobtainable: Yes Allergies: Coded Allergies: No Known Allergies (Unverified , 04/14/16) Subjective He is on ventilstor through his trach , awake and comfortable, not congested, afebrile, had left arm fistula removed . no significant secretions Objective Vital Signs Last 24 Hour Vital Signs Date Time Temp Pulse Resp B/P (MAP) Pulse Ox O2 Delivery O2 Flow Rate FiO2 06/29/18 16:00 89 06/29/18 16:00 10.0 35 06/29/18 16:00 97.0 106 25 108/81 (90) 98 06/29/18 13:00 T-piece 10.0 35 06/29/18 13:00 96 T-piece 10.0 35 06/29/18 12:00 86 06/29/18 12:00 97.3 88 22 96/64 (75) 99 06/29/18 12:00 10.0 35 06/29/18 09:00 T-piece 10.0 06/29/18 08:00 97.0 84 22 117/62 (80) 95 06/29/18 08:00 82 06/29/18 08:00 10.0 35 06/29/18 07:10 T-piece 10.0 35 06/29/18 07:10 98 T-piece 10.0 35 06/29/18 04:00 98.4 83 18 110/58 (75) 94 06/29/18 04:00 79 4/15/19 04:00 10.0 35 06/29/18 00:30 T-piece 10.0 35 06/29/18 00:30 100 T-piece 10.0 35 06/29/18 00:00 98.6 84 18 102/53 (69) 98 06/29/18 00:00 85 06/28/18 21:00 T-piece 10.0 06/28/18 20:00 81 06/28/18 20:00 99.2 88 18 110/49 (69) 100 06/28/18 20:00 10.0 35 06/28/18 19:58 100 T-piece 10.0 35 06/28/18 19:58 T-piece 10.0 35 Height (Feet): 5 Height (Inches): 8.00 Weight (Pounds): 143 General Appearance: no acute distress, cachetic HEENT: normocephalic, atraumatic, anicteric, mucous membranes moist, PERRL Respiratory/Chest: chest wall non-tender, no respiratory distress, no accessory muscle use, decreased breath sounds Cardiovascular: normal peripheral pulses, normal rate, regular rhythm, no gallop/murmur, no JVD Abdomen: normal bowel sounds, soft, non tender, no organomegaly, non distended , no mass, no scars Extremities: no cyanosis, no clubbing Skin: no rash, no lesions, ulcers Neurologic/Psychiatric: alert, responsive Lymphatic: no neck adenopathy, no groin adenopathy Musculoskeletal: normal muscle bulk, no effusion Microbiology Date/Time Source Procedure Growth Status 06/26/18 18:00 Straight Cath Urine Culture - Preliminary Resulted Laboratory Tests Test 06/29/18 05:30 06/29/18 05:35 White Blood Count 11.4 K/UL (4.8-10.8) H Red Blood Count 2.92 M/UL (4.70-6.10) L Hemoglobin 9.5 G/DL (14.2-18.0) L Hematocrit 29.9 % (42.0-52.0) L Mean Corpuscular Volume 103 FL (80-99) H Mean Corpuscular Hemoglobin 32.5 PG (27.0-31.0) H Mean Corpuscular Hemoglobin Concent 31.7 G/DL (32.0-36.0) L Red Cell Distribution Width 18.6 % (11.6-14.8) H Platelet Count 213 K/UL (150-450) Mean Platelet Volume 7.2 FL (6.5-10.1) Neutrophils (%) (Auto) 65.9 % (45.0-75.0) Lymphocytes (%) (Auto) 20.2 % (20.0-45.0) Monocytes (%) (Auto) 7.8 % (1.0-10.0) Eosinophils (%) (Auto) 5.1 % (0.0-3.0) H Basophils (%) (Auto) 1.0 % (0.0-2.0) Cortisol AM Sample 6.8 UG/DL Random Vancomycin Level 16.1 ug/mL Current Medications Medications (Trade) Dose Ordered Sig/Xochilt Route PRN Reason Start Time Stop Time Status Last Admin Dose Admin Acetaminophen (Tylenol) 650 mg Q6H PRN GT Mild Pain/Temp > 100.5 06/25/18 11:45 07/25/18 11:44 06/25/18 21:53 Albumin Human 100 ml @ 100 mls/hr DAILY PRN IV hypotension 06/28/18 18:30 07/28/18 18:29 Aspirin (ASA) 81 mg DAILY GT 06/26/18 09:00 07/26/18 08:59 06/29/18 08:05 Atorvastatin Calcium (Lipitor) 40 mg BEDTIME GT 06/25/18 21:00 07/25/18 20:59 06/28/18 20:48 Bisacodyl (Dulcolax) 10 mg DAILYPRN PRN RECTAL Constipation 06/25/18 11:45 07/25/18 11:44 Dextrose (Dextrose 50%) 25 ml Q30M PRN IV Hypoglycemia 06/25/18 11:45 07/25/18 11:44 Dextrose (Dextrose 50%) 50 ml Q30M PRN IV Hypoglycemia 06/25/18 11:45 07/25/18 11:44 Dextrose/Sodium Chloride 1,000 ml @ 40 mls/hr Q24H IV 06/26/18 13:00 07/26/18 12:59 06/29/18 12:25 Famotidine (Pepcid) 20 mg DAILY GT 06/26/18 09:00 07/26/18 08:59 06/29/18 08:05 Heparin Sodium (Porcine) (Heparin 5000 units/ml) 5,000 units EVERY 12 HOURS SUBQ 06/26/18 10:00 07/26/18 09:59 06/29/18 08:07 Insulin Aspart (NovoLOG) EVERY 6 HOURS SUBQ 06/26/18 12:00 07/25/18 20:59 06/29/18 17:37 Magnesium Hydroxide (Mom) 30 ml HSPRN PRN GT Constipation 06/25/18 11:45 07/25/18 11:44 Meropenem 500 mg/ Sodium Chloride 55 ml @ 110 mls/hr Q24H IVPB 06/26/18 13:00 07/01/18 12:59 06/29/18 15:53 Midodrine (Pro-Amatine) 2.5 mg BID ORAL 06/27/18 18:00 07/27/18 17:59 06/28/18 17:15 Ondansetron HCl (Zofran) 4 mg Q6H PRN IVP Nausea & Vomiting 06/25/18 23:45 07/25/18 23:44 Vancomycin HCl (Vanco rx to dose) 1 ea DAILY PRN MISC Per rx protocol 06/26/18 06:45 07/26/18 06:44 Vancomycin HCl 1 gm/Dextrose 275 ml @ 183.708 mls/hr ONCE IVPB 06/29/18 18:00 06/29/18 20:00 06/29/18 17:31 Vitamin B Complex/ Vit C/Folic Acid (Nephrovite) 1 tab DAILY GT 06/26/18 09:00 07/26/18 08:59 06/29/18 08:05 Zinc Sulfate (Zinc Sulfate) 220 mg DAILY GT 06/26/18 09:00 07/26/18 08:59 06/29/18 08:05 Devika Gaitan M.D. Jun 29, 2018 17:47
[2018-06-29] MEDS ORDERED: Vancomycin 1gm/D5W 275ml IVPB SCH ×2 (18:00)
[2018-06-29 20:00] VITALS: BP 124/66
[2018-06-29] MEDS: Atorvastatin 20mg tab GT SCH (21:11)
--- NOTE | 2018-06-29 23:56 | Cardiology Progress Note ---
Assessment/Plan Assessment/Plan 1. Hypotension, resolved, on midodrine, adjusting fluid removal during HD may help the situation. 2. Sinus tachycardia, resolved, likely secondary to hypotension or underlying sepsis. Subjective Subjective Sinus rhythm at rate of 90. On T-piece. Objective Last 24 Hour Vital Signs Date Time Temp Pulse Resp B/P (MAP) Pulse Ox O2 Delivery O2 Flow Rate FiO2 06/29/18 21:00 T-piece 10.0 06/29/18 20:06 100 T-piece 10.0 35 06/29/18 20:06 T-piece 10.0 35 06/29/18 20:00 10.0 35 06/29/18 20:00 90 06/29/18 20:00 98.1 90 16 124/66 (85) 100 06/29/18 16:00 89 06/29/18 16:00 10.0 35 06/29/18 16:00 97.0 106 25 108/81 (90) 98 06/29/18 13:00 T-piece 10.0 35 06/29/18 13:00 96 T-piece 10.0 35 06/29/18 12:00 86 06/29/18 12:00 97.3 88 22 96/64 (75) 99 06/29/18 12:00 10.0 35 06/29/18 09:00 T-piece 10.0 06/29/18 08:00 97.0 84 22 117/62 (80) 95 06/29/18 08:00 82 06/29/18 08:00 10.0 35 06/29/18 07:10 T-piece 10.0 35 06/29/18 07:10 98 T-piece 10.0 35 06/29/18 04:00 98.4 83 18 110/58 (75) 94 06/29/18 04:00 79 06/29/18 04:00 10.0 35 06/29/18 00:30 T-piece 10.0 35 06/29/18 00:30 100 T-piece 10.0 35 06/29/18 00:00 98.6 84 18 102/53 (69) 98 06/29/18 00:00 85 Intake and Output 06/28/18 06/29/18 19:00 07:00 Intake Total 265 ml Output Total 400 ml 950 ml Balance -400 ml -685 ml IV Total 265 ml Output Urine Total 400 ml 950 ml # Bowel Movements 2 2 2D Echo: LVEF 65%, Grade I LVDD, Mild AR, RVSP 16 mmHg Laboratory Tests Test 06/29/18 05:30 06/29/18 05:35 White Blood Count 11.4 K/UL (4.8-10.8) H Red Blood Count 2.92 M/UL (4.70-6.10) L Hemoglobin 9.5 G/DL (14.2-18.0) L Hematocrit 29.9 % (42.0-52.0) L Mean Corpuscular Volume 103 FL (80-99) H Mean Corpuscular Hemoglobin 32.5 PG (27.0-31.0) H Mean Corpuscular Hemoglobin Concent 31.7 G/DL (32.0-36.0) L Red Cell Distribution Width 18.6 % (11.6-14.8) H Platelet Count 213 K/UL (150-450) Mean Platelet Volume 7.2 FL (6.5-10.1) Neutrophils (%) (Auto) 65.9 % (45.0-75.0) Lymphocytes (%) (Auto) 20.2 % (20.0-45.0) Monocytes (%) (Auto) 7.8 % (1.0-10.0) Eosinophils (%) (Auto) 5.1 % (0.0-3.0) H Basophils (%) (Auto) 1.0 % (0.0-2.0) Cortisol AM Sample 6.8 UG/DL Random Vancomycin Level 16.1 ug/mL Objective HEENT: Atraumatic and normocephalic. Anicteric. Pupils are equal, round, and reactive to light and accommodation. Conjunctival pallor is present. NECK: JVP cannot be assessed. No carotid bruit. Carotid upstroke is 2+ bilaterally. Positive for tracheostomy tube. CARDIOVASCULAR: Normal S1, S2. Regular rate and rhythm. No murmurs, gallops, or rubs. LUNGS: Clear to auscultation bilaterally. ABDOMEN: Soft, nontender, and nondistended. No hepatosplenomegaly. Positive bowel sounds. Presence of a G-tube. EXTREMITIES: No evidence of edema, clubbing, or cyanosis. Aleks Bess MD Jun 29, 2018 23:56
[2018-06-30] VITALS: BP 136/56
[2018-06-30] MEDS: NovoLOG Insulin Flexpen SUBQ SCH ×4 (00:12→18:37)
[2018-06-30 04:00] VITALS: BP 125/63
[2018-06-30 08:00] VITALS: BP 114/64
[2018-06-30] MEDS: Aspirin Baby 81mg GT SCH (10:02)
[2018-06-30] MEDS: Zinc Sulfate 220mg cap GT SCH (10:02)
[2018-06-30] MEDS: Nephrovite tab (Rena-Vite) GT SCH (10:02)
[2018-06-30] MEDS: Heparin 5000 units/ml inj SUBQ SCH (10:03)
[2018-06-30 12:00] VITALS: BP 115/64
--- NOTE | 2018-06-30 12:16 | General Progress Note ---
Assessment/Plan Assessment: S: not verbaly communicative O: appears comfortable, eyes open, not verbal, at baseline PHYSICAL EXAMINATION: HEAD AND NECK: Atraumatic and normocephalic. CHEST: Diffuse bronchial breathing sounds.At/NC, T-bar in place with Trach, Chest: Diffuse bronchial bs, HEART: S1 and S2. Regular rate and rhythm.ABDOMEN : Soft. No organomegaly, positive for the tracheostomy T-bar.NEUROLOGY: Awake , alert and oriented x1. MS: Post exploration of Left Arm AV/F, covered with dressing Meds: reviewed, including Meropenem ASSESSMENT: 1. Sepsis: UTI, wound, PNA ! ? 2- Acute encephalopathy : Resolved, at base line 2. Post exploartion of the Left-sided the AV fistula. 3. End-stage renal disease, on hemodialysis. 4. Hypertension. 5. Diabetes. 6. Acute Anemia 6. GI and DVT prophylaxis. 7. Hypertension PLAN OF CARE: c/w empirical abx will test Occult blood in stool ok to transfuse NS bolus PRN will check Fasting Cortisol send STAT CBC New leukocytosis, felt to be not secondary to acute active infection , ok to fu as o/u Subjective Allergies: Coded Allergies: No Known Allergies (Unverified , 04/14/16) Objective Last 24 Hour Vital Signs Date Time Temp Pulse Resp B/P (MAP) Pulse Ox O2 Delivery O2 Flow Rate FiO2 06/30/18 12:00 98.1 90 20 115/64 (81) 100 06/30/18 11:37 86 06/30/18 09:00 T-piece 10.0 06/30/18 08:00 6.0 35 06/30/18 08:00 98.2 89 18 114/64 (81) 100 06/30/18 07:37 97 06/30/18 07:27 99 T-piece 10.0 35 06/30/18 07:27 T-piece 10.0 35 06/30/18 04:00 86 06/30/18 04:00 4.0 35 06/30/18 04:00 97.0 86 14 125/63 (83) 95 06/30/18 01:44 T-piece 10.0 35 06/30/18 01:43 100 T-piece 10.0 35 06/30/18 00:00 91 06/30/18 00:00 99.4 91 15 136/56 (82) 100 06/30/18 00:00 4.0 35 06/29/18 21:00 T-piece 10.0 06/29/18 20:06 100 T-piece 10.0 35 06/29/18 20:06 T-piece 10.0 35 06/29/18 20:00 10.0 35 06/29/18 20:00 90 06/29/18 20:00 98.1 90 16 124/66 (85) 100 06/29/18 16:00 89 06/29/18 16:00 10.0 35 06/29/18 16:00 97.0 106 25 108/81 (90) 98 06/29/18 13:00 T-piece 10.0 35 06/29/18 13:00 96 T-piece 10.0 35 Intake and Output 06/29/18 06/30/18 19:00 07:00 Intake Total 1013.708 ml 600 ml Output Total 1800 ml Balance -786.292 ml 600 ml Intake Free Water 200 ml 200 ml IV Total 533.708 ml Tube Feeding 280 ml 400 ml Output Urine Total 800 ml Hemodialysis UF 1000 ml Height (Feet): 5 Height (Inches): 8.00 Weight (Pounds): 176 Hever Olivarez MD Jun 30, 2018 12:16
--- NOTE | 2018-06-30 12:17 | Surgery Progress Note ---
Surgery Progress Note Subjective Additional Comments no acute events. improving. Objective Last 24 Hour Vital Signs Date Time Temp Pulse Resp B/P (MAP) Pulse Ox O2 Delivery O2 Flow Rate FiO2 06/30/18 11:37 86 06/30/18 09:00 T-piece 10.0 06/30/18 08:00 6.0 35 06/30/18 08:00 98.2 89 18 114/64 (81) 100 06/30/18 07:37 97 06/30/18 07:27 99 T-piece 10.0 35 06/30/18 07:27 T-piece 10.0 35 06/30/18 04:00 86 06/30/18 04:00 4.0 35 06/30/18 04:00 97.0 86 14 125/63 (83) 95 06/30/18 01:44 T-piece 10.0 35 06/30/18 01:43 100 T-piece 10.0 35 06/30/18 00:00 91 06/30/18 00:00 99.4 91 15 136/56 (82) 100 06/30/18 00:00 4.0 35 06/29/18 21:00 T-piece 10.0 06/29/18 20:06 100 T-piece 10.0 35 06/29/18 20:06 T-piece 10.0 35 06/29/18 20:00 10.0 35 06/29/18 20:00 90 06/29/18 20:00 98.1 90 16 124/66 (85) 100 06/29/18 16:00 89 06/29/18 16:00 10.0 35 06/29/18 16:00 97.0 106 25 108/81 (90) 98 06/29/18 13:00 T-piece 10.0 35 06/29/18 13:00 96 T-piece 10.0 35 I&O Intake and Output 06/29/18 06/30/18 19:00 07:00 Intake Total 1013.708 ml 600 ml Output Total 1800 ml Balance -786.292 ml 600 ml Intake Free Water 200 ml 200 ml IV Total 533.708 ml Tube Feeding 280 ml 400 ml Output Urine Total 800 ml Hemodialysis UF 1000 ml Dressing: saturated Wound: other Drains: other Cardiovascular: RSR Respiratory: decreased breath sounds Abdomen: soft, present bowel sounds Extremities: no cyanosis Plan Problems: (1) Decubitus ulcer of right ischial area Assessment & Plan: Pt presented on admission with resolving pressure injury to R ischium. Base of wound with trace slough, surrounding erythema.Epithelial scarring from previous wounds noted periwound. Hyperpigmentation scarring noted to sacrum. Intertriginous dermatitis noted to cleft of buttocks ,erythema with satellite lesions noted.Small amt sanguineous exudate. Non-blanchable erythema R heel with fluctuance. Dry scar noted centrally. L heel boggy-pink and blanchable. Skin dryness noted and Numerous scratch duckworth noted to L upper ext, abd and upper thighs. Tx.Plan: Cleanse R ischial wound with Saline. Apply Therahoney. Cover with Optifoam drsg. Change every 3 days and prn. Apply Cavilon To L ear daily. Apply Triad Paste to cleft of buttocks with each perineal care. Apply Cavilon Skin Barrier to both heels. Cover each heel with Optifoam drsg. Change every 7 days and prn. Reposition at least every 2hours or as tolerated. Off-load heels with pillow. (2) Electrolyte imbalance (3) Leukocytosis Assessment & Plan: cont abx appreciate ID input trend labs will monitor thank you (4) Sepsis Assessment & Plan: UA with UTI pending cultures CXR with possible PNA leukocytosis resolved HD stable -Cont IV abx as per ID -trend labs okay to d/c from surgical standpoint will follow with recs thank you Skyler Salmon Jun 30, 2018 12:17
[2018-06-30] MEDS: D5NS 1,000 ML IV SCH (13:03)
[2018-06-30] MEDS: Meropenem 500 MG in NS 55 ML IVPB SCH (14:11)
[2018-06-30 16:00] VITALS: BP 102/56
[2018-06-30] MEDS ORDERED: ACETAMINOPHEN325 M1 ORAL (17:29)
[2018-06-30] MEDS ORDERED: BISACODYL5 MG RECTAL (17:31)
[2018-06-30] MEDS ORDERED: MIDODRINE HCL2.5 MG GT (17:32)
[2018-06-30] MEDS ORDERED: ZOFRAN 4 MG4 MG/2 ML IV (17:33)
--- NOTE | 2018-06-30 17:33 | Infectious Diseases Prog Note ---
Assessment/Plan Problems: (1) Aspiration pneumonia Assessment & Plan: with right basal atelectasis , continue meropenem, with vancomycin empirically for 10 days . aspiration precaution (2) Fistula, arteriovenous, acquired Assessment & Plan: with possible site infection, S/P exploration by vascular, continue vancomycin and meropenem pending cultures (3) Sepsis Assessment & Plan: with leukocytosis , due to the above, continue vancomycin and meropenem pending cultures (4) Diabetes Assessment & Plan: recommend tight glycemic control (5) Dialysis patient Assessment & Plan: S/P AV fistula exploration and removal , already on wide spectrum antibiotics .renal and vascular are following (6) Decubitus ulcer of right ischial area Assessment & Plan: looks dry and not infected, keep off loading, and local wound care as per hospital protocol (7) UTI (urinary tract infection) Assessment & Plan: culture grew small colonies of bacteria and yeast, most likely contaminants , already on meropenem empirically Subjective ROS Limited/Unobtainable: Yes Allergies: Coded Allergies: No Known Allergies (Unverified , 04/14/16) Subjective He is on ventilstor through his trach , awake and comfortable, not congested, afebrile, had left arm fistula removed . no significant secretions Objective Vital Signs Last 24 Hour Vital Signs Date Time Temp Pulse Resp B/P (MAP) Pulse Ox O2 Delivery O2 Flow Rate FiO2 06/30/18 16:00 6.0 35 06/30/18 16:00 98.2 81 18 102/56 (71) 98 06/30/18 12:30 100 T-piece 10.0 35 06/30/18 12:30 T-piece 10.0 35 06/30/18 12:00 6.0 35 06/30/18 12:00 98.1 90 20 115/64 (81) 100 06/30/18 11:37 86 06/30/18 09:00 T-piece 10.0 06/30/18 08:00 6.0 35 06/30/18 08:00 98.2 89 18 114/64 (81) 100 06/30/18 07:37 97 06/30/18 07:27 99 T-piece 10.0 35 06/30/18 07:27 T-piece 10.0 35 06/30/18 04:00 86 06/30/18 04:00 4.0 35 06/30/18 04:00 97.0 86 14 125/63 (83) 95 06/30/18 01:44 T-piece 10.0 35 06/30/18 01:43 100 T-piece 10.0 35 06/30/18 00:00 91 06/30/18 00:00 99.4 91 15 136/56 (82) 100 06/30/18 00:00 4.0 35 06/29/18 21:00 T-piece 10.0 06/29/18 20:06 100 T-piece 10.0 35 06/29/18 20:06 T-piece 10.0 35 06/29/18 20:00 10.0 35 06/29/18 20:00 90 06/29/18 20:00 98.1 90 16 124/66 (85) 100 Height (Feet): 5 Height (Inches): 8.00 Weight (Pounds): 176 General Appearance: WD/WN, no acute distress HEENT: normocephalic, atraumatic, anicteric, mucous membranes moist, PERRL, EOMI, supple, no JVD, status post trach Respiratory/Chest: chest wall non-tender, no respiratory distress, no accessory muscle use, decreased breath sounds, crackles/rales Cardiovascular: normal peripheral pulses, normal rate, regular rhythm, no gallop/murmur, no JVD Abdomen: normal bowel sounds, soft, non tender, no organomegaly, non distended , no mass, no scars Genitourinary: normal external genitalia Extremities: no cyanosis, no clubbing Skin: no rash, no lesions, ulcers Neurologic/Psychiatric: alert, responsive Lymphatic: no neck adenopathy, no groin adenopathy Musculoskeletal: no effusion, atrophy Current Medications Medications (Trade) Dose Ordered Sig/Xochilt Route PRN Reason Start Time Stop Time Status Last Admin Dose Admin Acetaminophen (Tylenol) 650 mg Q6H PRN GT Mild Pain/Temp > 100.5 06/25/18 11:45 07/25/18 11:44 06/25/18 21:53 Albumin Human 100 ml @ 100 mls/hr DAILY PRN IV hypotension 06/28/18 18:30 07/28/18 18:29 Aspirin (ASA) 81 mg DAILY GT 06/26/18 09:00 07/26/18 08:59 06/30/18 10:02 Atorvastatin Calcium (Lipitor) 40 mg BEDTIME GT 06/25/18 21:00 07/25/18 20:59 06/29/18 21:11 Bisacodyl (Dulcolax) 10 mg DAILYPRN PRN RECTAL Constipation 06/25/18 11:45 07/25/18 11:44 Dextrose (Dextrose 50%) 25 ml Q30M PRN IV Hypoglycemia 06/25/18 11:45 07/25/18 11:44 Dextrose (Dextrose 50%) 50 ml Q30M PRN IV Hypoglycemia 06/25/18 11:45 07/25/18 11:44 Dextrose/Sodium Chloride 1,000 ml @ 40 mls/hr Q24H IV 06/26/18 13:00 07/26/18 12:59 06/30/18 13:03 Famotidine (Pepcid) 20 mg DAILY GT 06/26/18 09:00 07/26/18 08:59 06/30/18 10:02 Heparin Sodium (Porcine) (Heparin 5000 units/ml) 5,000 units EVERY 12 HOURS SUBQ 06/26/18 10:00 07/26/18 09:59 06/30/18 10:03 Insulin Aspart (NovoLOG) EVERY 6 HOURS SUBQ 06/26/18 12:00 07/25/18 20:59 06/30/18 12:59 Magnesium Hydroxide (Mom) 30 ml HSPRN PRN GT Constipation 06/25/18 11:45 07/25/18 11:44 Meropenem 500 mg/ Sodium Chloride 55 ml @ 110 mls/hr Q24H IVPB 06/26/18 13:00 07/01/18 12:59 06/30/18 14:11 Midodrine (Pro-Amatine) 2.5 mg BID ORAL 06/27/18 18:00 07/27/18 17:59 06/30/18 10:02 Ondansetron HCl (Zofran) 4 mg Q6H PRN IVP Nausea & Vomiting 06/25/18 23:45 07/25/18 23:44 Vancomycin HCl (Vanco rx to dose) 1 ea DAILY PRN MISC Per rx protocol 06/26/18 06:45 07/26/18 06:44 Vitamin B Complex/ Vit C/Folic Acid (Nephrovite) 1 tab DAILY GT 06/26/18 09:00 07/26/18 08:59 06/30/18 10:02 Zinc Sulfate (Zinc Sulfate) 220 mg DAILY GT 06/26/18 09:00 07/26/18 08:59 06/30/18 10:02 Devika Gaitan M.D. Jun 30, 2018 17:33
[2018-06-30] MEDS ORDERED: NOVOLOG100 UNIT/4 SQ (17:34)
[2018-06-30] MEDS ORDERED: VANCOMYCIN HCL125 MG IVPB (17:55)
[2018-06-30] MEDS ORDERED: VANCOMYCIN1 GM/200 M IV (17:56)
--- NOTE | 2018-06-30 18:03 | Cardiology Report ---
APPROVED REPORT EXAM: Two-dimensional and M-mode echocardiogram with Doppler and color Doppler. INDICATION Tachycardia M-Mode DIMENSIONS IVSd1.2 (0.7-1.1cm)Left Atrium (MM)3.1 (1.6-4.0cm) LVDd3.4 (3.5-5.6cm)Aortic Root4.1 (2.0-3.7cm) PWd1.1 (0.7-1.1cm)Aortic Cusp Exc.2.0 (1.5-2.0cm) IVSs1.5 cm LVDs2.3 (2.5-4.0cm) PWs0.8 cm Normal left ventricular chamber size, systolic function and wall motion. Left ventricular ejection fraction estimated to be 60-65%. No evidence of left ventricular hypertrophy . No evidence of pericardial effusion. All other cardiac chamber sizes are within normal limits. Aortic valve calcification cusp. valve excursion is not clearly seen however no sig gradient is recorded across the valve by doppers . Mildly thickened mitral valve leaflets with normal excursion. Mild mitral annulus and aortic root calcification. Pulmonic valve not well visualized. Subcostal views are not obtained due to GI-tube . A color flow and spectral Doppler study was performed and revealed: Mild aortic insufficiency . Mitral diastolic velocities suggest reduced left ventricular relaxation c/w mild LV diastolic dysfunction (Grade I ) Trace mitral regurgitation. Trace tricuspid regurgitation. Tricuspid systolic velocities suggests peak right ventricular systolic pressure of 16 mmHg.
--- NOTE | 2018-06-30 23:47 | Cardiology Progress Note ---
Assessment/Plan Assessment/Plan 1. Hypotension, resolved, continue midodrine, adjusting fluid removal during HD may help the situation. Normal LV systolic function with LVEF at 65%. 2. Sinus tachycardia, resolved, likely secondary to hypotension or underlying sepsis. 3. Mild AR. Subjective Subjective Sinus rhythm at rate of 81. On T-piece. Objective Last 24 Hour Vital Signs Date Time Temp Pulse Resp B/P (MAP) Pulse Ox O2 Delivery O2 Flow Rate FiO2 06/30/18 16:00 6.0 35 06/30/18 16:00 98.2 81 18 102/56 (71) 98 06/30/18 12:30 100 T-piece 10.0 35 06/30/18 12:30 T-piece 10.0 35 06/30/18 12:00 6.0 35 06/30/18 12:00 98.1 90 20 115/64 (81) 100 06/30/18 11:37 86 06/30/18 09:00 T-piece 10.0 06/30/18 08:00 6.0 35 06/30/18 08:00 98.2 89 18 114/64 (81) 100 06/30/18 07:37 97 06/30/18 07:27 99 T-piece 10.0 35 06/30/18 07:27 T-piece 10.0 35 06/30/18 04:00 86 06/30/18 04:00 4.0 35 06/30/18 04:00 97.0 86 14 125/63 (83) 95 06/30/18 01:44 T-piece 10.0 35 06/30/18 01:43 100 T-piece 10.0 35 06/30/18 00:00 91 06/30/18 00:00 99.4 91 15 136/56 (82) 100 06/30/18 00:00 4.0 35 Intake and Output 06/29/18 06/30/18 19:00 07:00 Intake Total 1013.708 ml 600 ml Output Total 1800 ml Balance -786.292 ml 600 ml Intake Free Water 200 ml 200 ml IV Total 533.708 ml Tube Feeding 280 ml 400 ml Output Urine Total 800 ml Hemodialysis UF 1000 ml 2D Echo: LVEF 65%, Grade I LVDD, Mild AR, RVSP 16 mmHg Objective HEENT: Atraumatic and normocephalic. Anicteric. Pupils are equal, round, and reactive to light and accommodation. Conjunctival pallor is present. NECK: JVP cannot be assessed. No carotid bruit. Carotid upstroke is 2+ bilaterally. Positive for tracheostomy tube. CARDIOVASCULAR: Normal S1, S2. Regular rate and rhythm. No murmurs, gallops, or rubs. LUNGS: Clear to auscultation bilaterally. ABDOMEN: Soft, nontender, and nondistended. No hepatosplenomegaly. Positive bowel sounds. Presence of a G-tube. EXTREMITIES: No evidence of edema, clubbing, or cyanosis. Aleks Bess MD Jun 30, 2018 23:47
--- NOTE | 2018-07-02 13:23 | Discharge Summary ---
Discharge Summary Discharge Summary _ DATE OF ADMISSION: 06/26/2018 DATE OF DISCHARGE: 06/30/2018 DISCHARGED BY: Dr Olivarez REASON FOR ADMISSION: 68 years old male with past medical history of CVA, end-stage renal disease, on hemodialysis, encephalopathy, respiratory failure, ventilator dependent, tracheostomy status, decubitus ulcer, presented for expiration of left arm hemodialysis fistula. CONSULTANTS: jewelry sorter Dr. Bess ID specialist Dr. Gaitan manager fire Dr. Griffin high school band director/oncologist surgery Dr. Salmon HOSPITAL COURSE: Patient admitted to telemetry floor. Patient subsequently undergone on 06/26 left arm AV fistula revision. Patient noted to have leukocytosis WBC 22.8. ID consult was requested. Septic workup initiated and patient was started on empiric antibiotics. Hemodialysis provided as per manager fire recommendations with close monitoring of renal parameters and volumes. Blood cultures were negative. Urine culture revealed VRE and Taylor with small colony counts, likely contamination. Chest x-ray demonstrated right basilar atelectasis. Patient was on empiric antibiotics for treatment of aspiration pneumonia. Antibiotic regimen provided as per ID recommendation. Leukocytosis trending down, nearly resolved. Prior to discharge WBC 11.4, no fevers. Patient need to continue IV antibiotic at the facility to complete the course as recommended by ID specialist. Patient was status post exploration of AV fistula with possible site infection . Patient was already covered with antibiotics empirically for possible infection. No evidence of infection at the site. Echocardiogram revealed preserved ejection fraction of 60-65%, no evidence of left ventricular hypertrophy. No evidence of pericardial effusion. Right ventricular systolic pressure of 16. Mild aortic regurgitation Converting Operator followed. Patient noted to be hypotensive. All antihypertensive medications were stopped, and patient started on midodrine. Patient initially exhibited sinus tachycardia,. Sinus tachycardia , which resolved , was likely due to hypotension and possibly underlying infection. Hemodynamic status was closely monitored. Blood pressure was stable with midodrine. Antiplatelet therapy with aspirin and statin were continued. DVT prophylaxis provided. Ventilator support and tracheostomy care provided. Pulmonary toilet provided. Strict aspiration precautions were maintained. Feeding was provided via G-tube. Patient was able to tolerate tube feeding. Hemoglobin and hematocrit were closely monitored with goal to keep hemoglobin above 7. Patient undergone fusion of 1 unit of packed red blood cells while in the hospital. Prior to discharge hemoglobin 9.5, hematocrit 29.9. Stool for occult blood was negative. Surgeon seen the patient for present on admission right ischial decubitus ulcer. Wound care provided as per surgeon recommendation. Continue with wound care at the facility. Supportive care provided. Blood sugar was managed with sliding scale of insulin. GI prophylaxis provided. Bowel regimen instituted. Patient clinically stabilized and was ready for transfer back to subacute [facility] facility for continuation of care. FINAL DIAGNOSES Acute encephalopathy status post left arm AV fistula revision End-stage renal disease, on hemodialysis Leukocytosis , possible sepsis Aspiration pneumonia Hypotension Sinus tachycardia- resolved Mild AR History of hypertension Diabetes Anemia of chronic kidney disease Chronic respiratory failure, ventilator dependent History of CVA Right ischial decubitus ulcer, present on admission DISCHARGE MEDICATIONS: See Medication Reconciliation list. DISCHARGE INSTRUCTIONS: Patient was discharged to the [facility] facility. Follow up with medical doctor at the facility. I have been assigned to dictate discharge summary for this account. I was not involved in the patient's management. Michelle Strong NP Jul 02, 2018 13:23
== END 2018-06-30 19:30 | DRG 853 ==
LOC: EDSTATUS 08:45 → PREINTOOBSV 09:44 → 2W 10:00 → OBSVTOIN 10:00 → INTOOBSV 10:00 → OBSVTOIN 06-26 09:00 → 2E 06-26 15:59
PROC: 03180ZD Bypass Left Brachial Artery to Upper Arm Vein, Open Approach (ICD-10-PCS; 2018-06-25)
PROC: 07B40ZX Excision of Left Upper Extremity Lymphatic, Open Approach, Diagnostic (ICD-10-PCS; 2018-06-25)
PROC: 03L80ZZ Occlusion of Left Brachial Artery, Open Approach (ICD-10-PCS; 2018-06-25)
PROC: 05SC0ZZ Reposition Left Basilic Vein, Open Approach (ICD-10-PCS; 2018-06-25)
PROC: 30233N1 Transfusion of Nonautologous Red Blood Cells into Peripheral Vein, Percutaneous Approach (ICD-10-PCS; principal; 2018-06-26)
PROC: 5A1945Z Respiratory Ventilation, 24-96 Consecutive Hours (ICD-10-PCS; principal; 2018-06-26)
PROC: 5A1D70Z Performance of Urinary Filtration, Intermittent, Less than 6 Hours Per Day (ICD-10-PCS; 2018-06-26)
DX: A41.9 Sepsis, unspecified organism (principal); J69.0 Pneumonitis due to inhalation of food and vomit; N18.6 End stage renal disease; T82.510A Breakdown (mechanical) of surgically created arteriovenous fistula, initial encounter; G93.40 Encephalopathy, unspecified; N39.0 Urinary tract infection, site not specified; I12.0 Hypertensive chronic kidney disease with stage 5 chronic kidney disease or end stage renal disease; Z43.1 Encounter for attention to gastrostomy; J96.10 Chronic respiratory failure, unspecified whether with hypoxia or hypercapnia; Z99.11 Dependence on respirator [ventilator] status; E11.22 Type 2 diabetes mellitus with diabetic chronic kidney disease; Y84.1 Kidney dialysis as the cause of abnormal reaction of the patient, or of later complication, without mention of misadventure at the time of the procedure; Z99.2 Dependence on renal dialysis; Z86.73 Personal history of transient ischemic attack (TIA), and cerebral infarction without residual deficits; I35.1 Nonrheumatic aortic (valve) insufficiency; D63.1 Anemia in chronic kidney disease; L89.212 Pressure ulcer of right hip, stage 2; R13.10 Dysphagia, unspecified; Z43.0 Encounter for attention to tracheostomy; Z79.82 Long term (current) use of aspirin; Z79.4 Long term (current) use of insulin; E87.8 Other disorders of electrolyte and fluid balance, not elsewhere classified
CPT/HCPCS: 36415; 71045; 80048; 80053; 80202; 81003; 82270; 82533; 82962; 84484; 85007; 85025; 85610; 85651; 85730; 86140; 86706; 86707; 86803; 86850; 86900; 86901; 86920; 87040; 87086; 87181; 93005; 93306; 94003; 94150; 94760; J1815

== ENCOUNTER → 2018-06-25 | Day surgery (SDC) | payer MEDICARE, MEDICAID ==
[~2018-06-25] VITALS: Ht 165.1 cm; Wt 65.3 kg
[2018-06-25] VITALS (15 sets, daily range): BP systolic 99–143; BP diastolic 17–70
[~2018-06-25] MED LIST changes: +ACETAMINOPHEN325 M1 ORAL; +ATORVASTATIN CA40 MG GT; +BISACODYL5 MG RECTAL; +Bacitracin 50000 Units Vial ONE; +Bacitracin Oint 15gm Tube TOPIC ONE; +Bupivacaine 0.5% Inj 30 ml vial INJ ONE; +D5NS 1000ml IV ONE; +Desmopressin (DDAVP) Inj IV SCH; +FAMOTIDINE20 MG GT; +HUMALOG100 UNIT/4 SUBQ; +Heparin 1000 units/ml 1ml Vial ONE; +Heparin 5000 units/ml inj ONE; +Heparin Sod 1000 units/ml 10ml INJ ONE; +Heparin Sod 1000 units/ml 10ml ONE; +Lidocaine 1% Plain 30 ml INJ ONE; +MEROPENEM500 MG IV; +METOCLOPRAMIDE H5 M1 GT; +MIDODRINE HCL10 MG GT; +MIDODRINE HCL2.5 MG GT; +NEPHROVITE1 TAB GT; +NOVOLOG100 UNIT/4 SQ; +NS 275ml ONE; +NS 500ML ONE; +NS Irrig 1000ml ONE; +Propofol 200mg/20ml IV ONE; +RENVELA0.8 GM GT; +SYNTHROID25 MCG GT; +Sterile Water Irrig 1000ml IRRIG ONE; +Thrombin 5000 units TOPIC ONE; +Tubing IV Secondary IV ONE; +VANCOMYCIN HCL125 MG IVPB; +VANCOMYCIN1 GM/200 M IV; +ZINC SULFATE220 M2 GT; +ZOFRAN 4 MG4 MG/2 ML IV; +fentaNYL 100 mcg/2 mL IV ONE; +fentaNYL 100 mcg/2 mL IV PRN
[2018-06-25 06:20] LABS: BASOPHILS % (AUTO) 1.1 % (0.0-2.0); EOSINOPHILS % (AUTO) 7.5 % (0.0-3.0); HEMATOCRIT 36.9 % (42.0-52.0); HEMOGLOBIN 11.6 G/DL (14.2-18.0); LYMPHOCYTES % (AUTO) 24.8 % (20.0-45.0); MEAN CORPUSCULAR VOLUME 102 FL (80-99); MONOCYTES % (AUTO) 7.6 % (1.0-10.0); NEUTROPHILS % (AUTO) 58.9 % (45.0-75.0); PLATELET COUNT 188 K/UL (150-450); RED BLOOD COUNT 3.62 M/UL (4.70-6.10); RED CELL DISTRIBUTION WIDTH 16.2 % (11.6-14.8); WHITE BLOOD COUNT 12.3 K/UL (4.8-10.8)
[2018-06-25 06:32] LABS: ANION GAP 13 mmol/L (5-15); BLOOD UREA NITROGEN 63 mg/dL (7-18); CALCIUM 9.7 MG/DL (8.5-10.1); CARBON DIOXIDE 25 MMOL/L (21-32); CHLORIDE 104 MMOL/L (98-107); CREATININE 4.1 MG/DL (0.55-1.30); POTASSIUM 3.3 MMOL/L (3.5-5.1); SODIUM 142 MMOL/L (136-145)
--- NOTE | 2018-06-25 13:59 | Pre-Procedure Note/Attestation ---
Pre-Procedure Note/Attestation Complete Prior to Procedure Planned Procedure: left Procedure Narrative: left arm dialysis shunt revision, possible transposition, and dialysis catheter replacement Indications for Procedure Pre-Operative Diagnosis: ESRD; inaccessible AVF Attestation I attest that I discussed the nature of the procedure; its benefits; risks and complications; and alternatives (and the risks and benefits of such alternatives ), prior to the procedure, with the patient (or the patient's legal solar sales representative). I attest that, if there was a reasonable possibility of needing a blood transfusion, the patient (or the patient's legal solar sales representative) was given the [facility] standardized written summary, pursuant to the Robert Chamble[place] Blood Safety Act ([place] Health and Safety Code # 1645, as amended). I attest that I re-evaluated the patient just prior to the surgery and that there has been no change in the patient's H&P, except as documented below: Shine Good MD Jun 25, 2018 13:59
--- NOTE | 2018-06-25 14:29 | Anethesia Preoperative Eval ---
Anesthesia Pre-op PMH/ROS General Date of Evaluation: Jun 25, 2018 Time of Evaluation: 13:20 Anesthesiologist: Zonia ASA Score: ASA 4 Mallampati Score Class I : Soft palate, uvula, fauces, pillars visible Class II: Soft palate, uvula, fauces visible Class III: Soft palate, base of uvula visible Class IV: Only hard plate visible Mallampati Classification: Class III Surgeon: Florentino Diagnosis: ESRD Dialysis access Surgical Procedure: Revision of L arm A-V fistula Anesthesia History: none Family History: no anesthesia problems Allergies: Coded Allergies: No Known Allergies (Unverified , 04/14/16) Medications: see eMAR Patient NPO?: Yes NPO Date: Jun 24, 2018 NPO Time: 2358 Past Medical History Cardiovascular: Reports: HTN; Denies: CAD, PR, valve dz, arrhythmia, other Pulmonary: Reports: other - respiratory failure tracheostomy in place; Denies: asthma, COPD, DENNIS Gastrointestinal/Genitourinary: Reports: GERD, ESRD - on HD, other - Dysphagia PEG tube in place Neurologic/Psychiatric: Reports: dementia, CVA; Denies: depression/anxiety, TIA, other Endocrine: Reports: DM, hypothyroidism; Denies: steroids, other HEENT: Denies: cataract (L), cataract (R), glaucoma, EMMONAK (L), EMMONAK (R), other Hematology/Immune: Reports: anemia - of chronic d-s; Denies: DVT, bleeding disorder, other Musculoskeletal/Integumentary: Reports: DJD, other - severele contructed; Denies: OA, RA, DDD, edema Other: other - malnourished PMH Narrative: as above PSxH Narrative: see H&P Anesthesia Pre-op Phys. Exam Physician Exam Last Vital Signs Date Time Temp Pulse Resp B/P (MAP) Pulse Ox O2 Delivery O2 Flow Rate FiO2 06/25/18 10:48 6.0 06/25/18 10:48 97.9 94 22 134/67 (89) 100 06/25/18 07:47 T-piece Constitutional: NAD Neurologic: other - unable to obtaine Cardiovascular: RRR Respiratory: CTA Gastrointestinal: other - PEG tube Airway Exam Mallampati Score: Class III - Tracheostomy in place ROM: limited Teeth: missing Dentures: no upper, no lower Anesthesia Pre-op A/P Labs Hematology Test 06/25/18 06:05 White Blood Count 12.3 K/UL (4.8-10.8) H Red Blood Count 3.62 M/UL (4.70-6.10) L Hemoglobin 11.6 G/DL (14.2-18.0) L Hematocrit 36.9 % (42.0-52.0) L Mean Corpuscular Volume 102 FL (80-99) H Mean Corpuscular Hemoglobin 32.1 PG (27.0-31.0) H Mean Corpuscular Hemoglobin Concent 31.5 G/DL (32.0-36.0) L Red Cell Distribution Width 16.2 % (11.6-14.8) H Platelet Count 188 K/UL (150-450) Mean Platelet Volume 8.4 FL (6.5-10.1) Neutrophils (%) (Auto) 58.9 % (45.0-75.0) Lymphocytes (%) (Auto) 24.8 % (20.0-45.0) Monocytes (%) (Auto) 7.6 % (1.0-10.0) Eosinophils (%) (Auto) 7.5 % (0.0-3.0) H Basophils (%) (Auto) 1.1 % (0.0-2.0) Coagulation Test 06/25/18 06:05 Prothrombin Time 10.9 SEC (9.30-11.50) Prothromb Time International Ratio 1.0 (0.9-1.1) Activated Partial Thromboplast Time 27 SEC (23-33) Chemistry Test 06/25/18 06:05 Sodium Level 142 MMOL/L (136-145) Potassium Level 3.3 MMOL/L (3.5-5.1) L Chloride Level 104 MMOL/L (98-107) Carbon Dioxide Level 25 MMOL/L (21-32) Anion Gap 13 mmol/L (5-15) Blood Urea Nitrogen 63 mg/dL (7-18) H Creatinine 4.1 MG/DL (0.55-1.30) H Estimat Glomerular Filtration Rate 14.6 mL/min (>60) Glucose Level 158 MG/DL (74-106) H Calcium Level 9.7 MG/DL (8.5-10.1) Risk Assessment & Plan Assessment: ASA 4 Plan: GA tracheostomy Status Change Before Surgery: No Pre-Antibiotics Drug: Ancef 1gr Given Within 1 Hr of Incision: Yes Time Given: 14:10 Shon Brar MD Jun 25, 2018 14:29
--- NOTE | 2018-06-25 16:40 | Diagnostic Imaging Report ---
Indication: Intraoperative; missing Ray-Hilaria sponge Technique: One view of the left distal humerus Comparison: none Findings: Surgical clips are seen in the soft tissues of the upper arm and proximal forearm. What appears to be a vascular embolization coil is seen projected over the medial distal humerus. No findings to suggest retained sponge or other foreign body demonstrated Impression: Negative for intraoperative foreign body
--- NOTE | 2018-06-25 16:49 | Brief Operative Note ---
Immediate Post Operative Note Operative Note Pre-op Diagnosis: ESRD; inaccessible AVF Procedure[place] Basilic [place] [facility] [place]op Diagnosis: same as pre-op Findings: consistent w/pre-op dx studies Surgeon: Lázaro Good Anesthesiologist: Quique Brar Anesthesia: general Specimen: yes - left arm soft tissue mass Complications: none Condition: stable Fluids: see anesth. record Estimated Blood Loss: volume - 100 ml Drains: none Implant(s) used?: No Shine Good MD Jun 25, 2018 16:49
--- NOTE | 2018-06-25 16:56 | Immediate Post-Op Evaluation ---
Immediate Post-Op Evalulation Immediate Post-Op Evalulation Procedure: L arm A-V shunt revision Date of Evaluation: Jun 25, 2018 Time of Evaluation: 16:54 IV Fluids: 200 Blood Products: none Estimated Blood Loss: 50 Urinary Output: none Blood Pressure Systolic: 141 Blood Pressure Diastolic: 66 Pulse Rate: 102 Respiratory Rate: 22 O2 Sat by Pulse Oximetry: 99 Temperature (Fahrenheit): 97.6 Pain Score (1-10): 1 Nausea: No Vomiting: No Complications none Patient Status: reacts, patent - tracheostomy spontaneous breathing, none Hydration Status: adequate Shon Brar MD Jun 25, 2018 16:56
[2018-06-25 17:50] LABS: BASOPHILS % (AUTO) 0.7 % (0.0-2.0); EOSINOPHILS % (AUTO) 5.4 % (0.0-3.0); HEMATOCRIT 32.1 % (42.0-52.0); HEMOGLOBIN 10.4 G/DL (14.2-18.0); LYMPHOCYTES % (AUTO) 22.4 % (20.0-45.0); MEAN CORPUSCULAR VOLUME 99 FL (80-99); MONOCYTES % (AUTO) 6.9 % (1.0-10.0); NEUTROPHILS % (AUTO) 64.5 % (45.0-75.0); PLATELET COUNT 194 K/UL (150-450); RED BLOOD COUNT 3.23 M/UL (4.70-6.10); RED CELL DISTRIBUTION WIDTH 15.7 % (11.6-14.8); WHITE BLOOD COUNT 16.2 K/UL (4.8-10.8)
--- NOTE | 2018-06-25 21:15 | Operative Note - Dictated ---
DATE OF OPERATION: 06/25/2018 PREOPERATIVE DIAGNOSES: 1. Inaccessible arteriovenous fistula in the left upper extremity. 2. End-stage renal disease. POSTOPERATIVE DIAGNOSES: 1. Left arm deep soft tissue mass. 2. Inaccessible arteriovenous fistula in the left upper extremity. 3. End-stage renal disease FINDINGS: Below. PROCEDURES: 1. Left basilic vein transposition arteriovenous fistula creation in the left upper arm. 2. Exploration and ligation of the old dialysis arteriovenous shunt in the left arm. 3. Dilation of left basilic vein. 4. Excisional biopsy of soft tissue mass in the left upper arm. SURGEON: Shine Good M.D. ANESTHESIA: Shon Brar M.D. ANESTHESIA: General via tracheostomy. INDICATION: The patient has an AV fistula in the left upper arm, which recently had a fistulogram done and was noted to be patent. It is inaccessible and needs to be transposed, revised and after he was cleared medically, he was brought to the operating room for the procedure. INTRAOPERATIVE FINDINGS: The basilic vein was adequate for transposition, which was performed as described below. In the course of dissection and embolization of the basilic vein, approximately 2 x 2 cm soft tissue mass was encountered in the left mid upper arm, which may be a lymph node and this was excised and sent for pathological evaluation. The AV fistula has a good thrill at the end of the procedure and distal Doppler signals in the limb were adequate. The hand was warm and well perfused at the end of the procedure. PROCEDURE IN DETAIL: With the patient in supine position and after induction of anesthesia, the left upper extremity was prepped and draped in the usual sterile fashion. Skin was infiltrated with local anesthetic and the incision was made at the level of the antecubital crease overlying the basilic vein and up to the old anastomotic site. The vein appeared adequate for transposition and was followed more proximally after the incision was extended into the proximal upper arms for the entire length of the basilic vein to be exposed. It was ligated distally at the level of the antecubital crease and divided. Venous tributaries were divided between silk ties and hemoclips were necessary. It was flushed with heparinized saline and was noted to be widely patent and serial dilators were passed up to a 4.5 mm diameter without significant resistance. The end of the vein was spatulated and after a curvilinear subcutaneous tunnel was created and maintained with a Hand catheter just lateral to the incision. The vein was brought through the tunnel and after the brachial artery was exposed more proximal to the old AV fistula anastomosis and encircled with vessel loops proximally and distally. The longitudinal arteriotomy was made through which the vessel was flushed with heparinized saline proximally and distally. An end-to-side anastomosis to the vein was carried out with a continuous suture of 6-0 Prolene. The vessels were removed and good flow was seen and was noted and palpable thrill was present. The soft tissue mass in the mid upper arm was then excised using cautery circumferentially and sent for pathological examination. After hemostasis was ensured, the wound was irrigated with antibiotic solution and closed with interrupted sutures of 3-0 and 2-0 Vicryl for deep layers followed by 4-0 Monocryl in subcuticular continuous fashion for skin closure. Antibiotic ointment and dressings were placed and the patient was brought out of anesthesia and transferred to PACU in stable condition. He tolerated the procedure well. At the conclusion of the procedure, sponge, needle, and instrument counts were correct. ESTIMATED BLOOD LOSS: 100 mL. COMPLICATIONS: None. DRAINS: None. SPECIMEN: Left upper arm soft tissue mass. Shine Good M.D. DR: SEB JOB#: [id number] CC: Austyn Tiwari M.D. ; FAX#: [phone]
== END | disposition home or self-care (01) ==
LOC: SUR 05:42
DX: I12.0 Hypertensive chronic kidney disease with stage 5 chronic kidney disease or end stage renal disease (principal); E11.22 Type 2 diabetes mellitus with diabetic chronic kidney disease; I77.0 Arteriovenous fistula, acquired; N18.6 End stage renal disease; E03.9 Hypothyroidism, unspecified; M19.90 Unspecified osteoarthritis, unspecified site; R22.32 Localized swelling, mass and lump, left upper limb; F03.90 Unspecified dementia, unspecified severity, without behavioral disturbance, psychotic disturbance, mood disturbance, and anxiety; Z93.0 Tracheostomy status; Z86.73 Personal history of transient ischemic attack (TIA), and cerebral infarction without residual deficits; Z99.2 Dependence on renal dialysis; G93.40 Encephalopathy, unspecified
CPT/HCPCS: 24066; 36415; 36819; 73060; 80048; 82962; 85025; 85610; 85730; J0690; J1644; J2001; J2597; J2704; J3010; J3490; J7040; J7050; 94003; 94150

== ENCOUNTER 2018-09-02 14:24 | Inpatient (IN) | payer MEDICARE, MEDICAID ==
[~2018-09-02] VITALS: Ht 165.1 cm; Wt 52.7 kg
[~2018-09-02 14:24] MED LIST changes: +ACETAMINOPHEN325 M1 ORAL; +BISACODYL5 MG RECTAL; +MIDODRINE HCL2.5 MG GT; +NOVOLOG100 UNIT/4 SQ; +VANCOMYCIN HCL125 MG IVPB; +VANCOMYCIN1 GM/200 M IV; +ZOFRAN 4 MG4 MG/2 ML IV
--- NOTE | 2018-09-02 14:40 | NUR ---
ED Nurse Note: Pt BIBA from [facility] due to shrunt occlusion and replacement, sent in by Dr. Flannery. Shrunt is on R upper chest. Pt present with trache collar 5L oxygen. G-tube and Zimmerman catheter. AOx1, open eyes spontaneously and respond to name but non-verbal. RT at bedside. Pt is bedridden. HR 111 at this time. Will cont to monitor.
--- NOTE | 2018-09-02 14:46 | Emergency Room Report ---
History of Present Illness General Chief Complaint: General Complaint Source: Patient, Medical Record Present Illness HPI This patient is brought in from a residential facility. The patient has a history of end-stage renal disease and is dialysis dependent. The patient went to get dialysis today and was unable to get dialysis secondary to shunt occlusion and malfunction. The patient is sent over for revision of the shunt in for dialysis. Patient has multiple chronic medical problems to include respiratory failure with tracheostomy. Has a history of CVA, diabetes. The patient is unable to give any history. All history is obtained from the electronic medical record and the primary book jacket cover machine operator. Allergies: Coded Allergies: No Known Allergies (Unverified , 04/14/16) Patient History Past Medical History: see triage record, DM, HTN, MD, CAD, GERD, CVA/TIA, renal disease, dialysis Past Surgical History: other - PEG,Trach Social History: Denies: smoking, alcohol use, drug use Reviewed Nursing Documentation: PMH: Agreed; PSxH: Agreed Nursing Documentation-PMH Hx Cardiac Problems: Yes Hx Hypertension: Yes Hx Diabetes: Yes Hx Cancer: No Hx Gastrointestinal Problems: Yes Hx Dialysis: Yes - [facility] on right upper chest catheter Hx Neurological Problems: Yes Hx Cerebrovascular Accident: Yes Hx Dementia: Yes Hx Speech Problem: Yes Hx Aphasia: Yes Hx Dysphasia: Yes Hx Weakness: Yes - generalized Review of Systems All Other Systems: negative except mentioned in HPI Physical Exam Vital Signs Date Time Temp Pulse Resp B/P (MAP) Pulse Ox O2 Delivery O2 Flow Rate FiO2 09/02/18 14:25 98.2 95 14 110/98 (102) 99 T-piece 5.0 Sp02 EP Interpretation: reviewed, normal General Appearance: no apparent distress, alert, GCS 15, non-toxic Head: normocephalic, atraumatic ENT: other - Trach in place w/ Tpiece Neck: normal inspection Respiratory: lungs clear, normal breath sounds, no respiratory distress, no retraction, no accessory muscle use Cardiovascular #1: regular rate, rhythm, no edema Gastrointestinal: normal bowel sounds, non tender, soft, non-distended, no guarding, no rebound, other Rectal: deferred Musculoskeletal: normal inspection, other - AT baseline Neurologic: alert, other - At baseline. Hx CVA. Alert. Psychiatric: mood/affect normal Skin: warm/dry, well hydrated, other - See RN skin exam for multiple DU/skin findings. Medical Decision Making Diagnostic Impression: Primary Impression: AV shunt malfunction ER Course This patient has an AV shunt malfunction. He is sent in by his book jacket cover machine operator for new shunt placement and dialysis. The patient is admitted for shunt revision and dialysis. Laboratory Tests Test 09/02/18 14:50 White Blood Count 18.9 K/UL (4.8-10.8) H Red Blood Count 3.07 M/UL (4.70-6.10) L Hemoglobin 9.5 G/DL (14.2-18.0) L Hematocrit 27.8 % (42.0-52.0) L Mean Corpuscular Volume 90 FL (80-99) Mean Corpuscular Hemoglobin 31.0 PG (27.0-31.0) Mean Corpuscular Hemoglobin Concent 34.3 G/DL (32.0-36.0) Red Cell Distribution Width 19.8 % (11.6-14.8) H Platelet Count 388 K/UL (150-450) Mean Platelet Volume 6.2 FL (6.5-10.1) L Neutrophils (%) (Auto) % (45.0-75.0) Lymphocytes (%) (Auto) % (20.0-45.0) Monocytes (%) (Auto) % (1.0-10.0) Eosinophils (%) (Auto) % (0.0-3.0) Basophils (%) (Auto) % (0.0-2.0) Prothrombin Time 10.2 SEC (9.30-11.50) Prothrombin Time INR 1.0 (0.9-1.1) PTT 27 SEC (23-33) Sodium Level 134 MMOL/L (136-145) L Potassium Level 4.0 MMOL/L (3.5-5.1) Chloride Level 94 MMOL/L (98-107) L Carbon Dioxide Level 27 MMOL/L (21-32) Anion Gap 13 mmol/L (5-15) Blood Urea Nitrogen 60 mg/dL (7-18) H Creatinine 4.3 MG/DL (0.55-1.30) H Estimate Glomerular Filtration Rate 13.8 mL/min (>60) Glucose Level 118 MG/DL (74-106) H Calcium Level 10.2 MG/DL (8.5-10.1) H Total Bilirubin 0.4 MG/DL (0.2-1.0) Aspartate Amino Transferase (AST) 32 U/L (15-37) Alanine Aminotransferase (ALT) 32 U/L (12-78) Alkaline Phosphatase 232 U/L (46-116) H Total Protein 9.4 G/DL (6.4-8.2) H Albumin 3.6 G/DL (3.4-5.0) Globulin 5.8 g/dL Albumin/Globulin Ratio 0.6 (1.0-2.7) L Last Vital Signs Date Time Temp Pulse Resp B/P (MAP) Pulse Ox O2 Delivery O2 Flow Rate FiO2 09/02/18 14:25 98.2 95 14 110/98 (102) 99 T-piece 5.0 Disposition: ADMITTED INPATIENT Condition: Stable Tiffanie Gonzalez DO Sep 02, 2018 14:46
--- NOTE | 2018-09-02 14:50 | NUR ---
RESPIRATORY NOTE: Received pt on trach collar 5L from computed tomography technician in ER. Pt is alert, awake, follows commands, trach dependent with Portex uncuffed size 8.0. Placed pt on Tpiece cool aerosol 8L 30%, sundeep B/S rhonchi heard upon auscultation, secured trach with trach guard and trach tie. Pt is coughing intermittently , tracheal suctioned small amount of thick/ plugs small clots yellow green secretions without incidents. Noticed a small open wound above the trach tie behind pt's left ear. Notified RN Narcisa. Ambu bag and spare trach kit at bedside. No SOB or resp distress noted. Will continue to monitor pt.
--- NOTE | 2018-09-02 14:53 | NUR ---
ED Nurse Note: Per Eula RT, pt is on cool aerosol 30% 8L to trach collar.
[2018-09-02 14:54] VITALS: BP 122/61
[2018-09-02 15:25] LABS: HEMATOCRIT 27.8 % (42.0-52.0); HEMOGLOBIN 9.5 G/DL (14.2-18.0); MEAN CORPUSCULAR VOLUME 90 FL (80-99); PLATELET COUNT 388 K/UL (150-450); RED BLOOD COUNT 3.07 M/UL (4.70-6.10); RED CELL DISTRIBUTION WIDTH 19.8 % (11.6-14.8); WHITE BLOOD COUNT 18.9 K/UL (4.8-10.8)
--- NOTE | 2018-09-02 15:37 | NUR ---
ED Nurse Note: Dialysis is on T-Th-Sat. Last dialysis was yesterday 09/01/18.
[2018-09-02 15:39] LABS: ANION GAP 13 mmol/L (5-15); BLOOD UREA NITROGEN 60 mg/dL (7-18); CALCIUM 10.2 MG/DL (8.5-10.1); CARBON DIOXIDE 27 MMOL/L (21-32); CHLORIDE 94 MMOL/L (98-107); CREATININE 4.3 MG/DL (0.55-1.30); SODIUM 134 MMOL/L (136-145)
[2018-09-02 15:44] LABS: ALANINE AMINOTRANSFERASE 32 U/L (12-78); ALBUMIN 3.6 G/DL (3.4-5.0); ALBUMIN/GLOBULIN RATIO 0.6 (1.0-2.7); ALKALINE PHOSPHATASE 232 U/L (46-116); ASPARTATE AMINO TRANSFERASE 32 U/L (15-37); BILIRUBIN,TOTAL 0.4 MG/DL (0.2-1.0)
--- NOTE | 2018-09-02 17:15 | NUR ---
ED Nurse Note: Pressure ulcer wound noted on L neck, wound from trach collar.
[2018-09-02 17:16] VITALS: BP 103/63
--- NOTE | 2018-09-02 17:22 | NUR ---
ED Nurse Note: Report given to AMBROSE Mccabe at ext [phone]. Pt to be transfered to room 411-2 on [facility] per protocol.
[2018-09-02 18:35] VITALS: BP 89/61
--- NOTE | 2018-09-02 18:35 | NUR ---
NURSE NOTES: RN LEFT MESSAGE FOR DR TANNER REGARDING NEED FOR ADMISSION ORDERS.
--- NOTE | 2018-09-02 19:08 | NUR ---
NURSE NOTES: PT IS NONVERBAL, IN NO APPARENT DISTRESS AT THIS TIME. PT ON 8L 30%, TRACH COLLAR AND T-PIECE. PT WAS REPOSITIONED AND CLEANED. IN HIGH-VYAS'S POSITION WITH HOB ELEVATED. NO S/S PAIN USING FLACC PAIN SCALE. CASTILLO DRAINING CLOUDY YELLOW URINE BY GRAVITY. BED IN LOWEST POSITION WITH BEDSIDE RAILS X3 RAISED. BED ALARM ON. WILL CONTINUE TO MONITOR.
--- NOTE | 2018-09-02 19:29 | NUR ---
NURSE NOTES: NO CALL BACK FROM DR TANNER FOR ADMISSION ORDERS. ENDORSED TO Omer PEPE RN.
--- NOTE | 2018-09-02 19:30 | NUR ---
HAND-OFF: Report given to Omer PEPE RN.
--- NOTE | 2018-09-02 19:43 | NUR ---
RESPIRATORY NOTE: Received pt on 30% Cool Aerosol via T-Piece. Pt is trach-dependent w/ a cuffed Portex 8 tube, cuff is currently deflated. Pt alert/awake, nonverbal, responds to stimuli. B/S sundeep. rhonchi, sxn small to moderate amounts of thick, yellow secretions. Noted to have wound behind pt's left ear just above the trach tie, bedside RN aware. Ambubag & spare trach kit at bedside. Pt resting comfortably, in no apparent distress at this time. Will continue plan of care.
[2018-09-02 20:00] VITALS: BP 89/61
--- NOTE | 2018-09-02 20:00 | NUR ---
NURSE NOTES: Patient received in bed, awake, nonverbal. TPiece at 30%FiO2, no acute distress noted at this time. GT is intact. FC draining dark sotero urine via gravity. Repositioned for comfort. HOB elevated 35deg, aspiration precaution. Call light in reach. Follow up call placed to Dr. Olivarez for admission orders. Will continue to monitor.
[2018-09-02] MEDS ORDERED: Acetaminophen 650mg/20.3ml GT PRN ×2 (20:45)
[2018-09-02] MEDS ORDERED: Fleet's Enema 133ml RECTAL PRN (20:45)
[2018-09-02] MEDS ORDERED: Lactulose 20gm/30ml UDC ORAL PRN (20:45)
[2018-09-02] MEDS ORDERED: NovoLOG Insulin Flexpen SUBQ SCH (21:00)
--- NOTE | 2018-09-02 21:00 | NUR ---
NURSE NOTES: Unable to weigh patient at this time. Bed is not zero-ed properly. Will re-attempt bed transfer later.
[2018-09-02] MEDS: Midodrine 10mg tab ORAL SCH (21:53)
[2018-09-02] MEDS: Atorvastatin 20mg tab GT SCH (21:53)
[2018-09-02 23:21] VITALS: BP 106/63
[2018-09-03] MEDS: NovoLOG Insulin Flexpen SUBQ SCH ×5 (00:06→23:45)
[2018-09-03 04:00] VITALS: BP 96/56
[2018-09-03 06:27] LABS: BASOPHILS % (AUTO) 1.4 % (0.0-2.0); EOSINOPHILS % (AUTO) 3.6 % (0.0-3.0); HEMATOCRIT 28.9 % (42.0-52.0); HEMOGLOBIN 9.3 G/DL (14.2-18.0); LYMPHOCYTES % (AUTO) 20.8 % (20.0-45.0); MEAN CORPUSCULAR VOLUME 95 FL (80-99); MONOCYTES % (AUTO) 10.5 % (1.0-10.0); NEUTROPHILS % (AUTO) 63.8 % (45.0-75.0); PLATELET COUNT 378 K/UL (150-450); RED BLOOD COUNT 3.03 M/UL (4.70-6.10); RED CELL DISTRIBUTION WIDTH 20.6 % (11.6-14.8); WHITE BLOOD COUNT 15.8 K/UL (4.8-10.8)
[2018-09-03 06:50] LABS: ANION GAP 14 mmol/L (5-15); BLOOD UREA NITROGEN 71 mg/dL (7-18); CALCIUM 10.1 MG/DL (8.5-10.1); CARBON DIOXIDE 25 MMOL/L (21-32); CHLORIDE 97 MMOL/L (98-107); CHOLESTEROL 87 MG/DL (< 200); CREATININE 5.2 MG/DL (0.55-1.30); HDL CHOLESTEROL 27 MG/DL (40-60); SODIUM 136 MMOL/L (136-145); TRIGLYCERIDES 202 MG/DL (30-150)
--- NOTE | 2018-09-03 07:21 | Pre-Procedure Note/Attestation ---
Pre-Procedure Note/Attestation Complete Prior to Procedure Planned Procedure: left Procedure Narrative: left arm fistulogram, possible intervention Indications for Procedure Pre-Operative Diagnosis: AVF malfunction Attestation I attest that I discussed the nature of the procedure; its benefits; risks and complications; and alternatives (and the risks and benefits of such alternatives ), prior to the procedure, with the patient (or the patient's legal sales representative [employer]). I attest that, if there was a reasonable possibility of needing a blood transfusion, the patient (or the patient's legal sales representative [employer]) was given the [facility] standardized written summary, pursuant to the Robert Sid Blood Safety Act ([place] Health and Safety Code # 1645, as amended). I attest that I re-evaluated the patient just prior to the surgery and that there has been no change in the patient's H&P, except as documented below: Shine Good MD Sep 03, 2018 07:21
--- NOTE | 2018-09-03 07:35 | NUR ---
NURSE NOTES: Patient received sleeping in bed. Trach collar intact, plugged in and suctioning well. Pt is NPO for surgery today. Zimmerman catheter is patent and draining. HOB elevated for aspiration precaution. Call light placed within reach, will continue to monitor.
--- NOTE | 2018-09-03 07:45 | NUR ---
HAND-OFF: Report given to Jennifer BOGGS.
[2018-09-03 08:00] VITALS: BP 110/61
[2018-09-03] MEDS: Midodrine 10mg tab ORAL SCH ×3 (08:17→17:25)
[2018-09-03] MEDS: Nephrovite tab (Rena-Vite) ORAL SCH (08:17)
--- NOTE | 2018-09-03 09:02 | History & Physical ---
History of Present Illness General Reason for Hospitalization: General Complaint Present Illness HPI HISTORY OF PRESENT ILLNESS: The patient is a 68-year-old male with the history of respiratory failure, end-stage renal disease, on hemodialysis, and wounds, who presented for the exploration of the hemodialysis fistula. At the time of evaluation, the patient denies chest pain or shortness of breath. Patient at baseline is not verbally communicative. REVIEW OF SYSTEMS: All 14-elements of review of systems reviewed. Pertinent positive and negative as above. PAST MEDICAL HISTORY: Including but not limited to CVA, end-stage renal disease, dysphagia, encephalopathy, and decubitus wounds. CURRENT HOSPITAL MEDICATIONS: Including but not limited to including but not limited to sliding scale insulin, aspirin, atorvastatin, and acetaminophen. SOCIAL HISTORY: The patient is residing in a shelter facility. No prior history of illicit drug abuse, smoking, or tobacco use could be found. Allergies: Coded Allergies: No Known Allergies (Unverified , 04/14/16) Medication History Scheduled Aspirin* (Aspirin*), 81 MG GT DAILY, (Reported) Atorvastatin Calcium* (Atorvastatin Calcium*), 40 MG GT BEDTIME, (Reported) Famotidine (Famotidine), 20 MG GT DAILY, (Reported) Insulin Aspart (Novolog), 100 UNIT SQ Q6HR, (Reported) Insulin Lispro (Humalog), Unknown Dose SUBQ Q6HR, (Reported) Meropenem (Meropenem), 500 MG IV DAILY Metoclopramide Hcl* (Metoclopramide Hcl*), 10 MG GT NEEDED, (Reported) Midodrine* (Proamatine*), 2.5 MG GT TWICE A DAY, (Reported) Sevelamer Carbonate* (Renvela*), 1,600 MG GT THREE TIMES A DAY, (Reported) Vancomycin Hcl/D5w (Vancomycin Hcl 1G/200 Ml Bag), 1 GM IV DAILY, (Reported) Vitamin B Cmplx/Vit C/Folic AC (Nephro-Micah Tablet), 1 TAB GT DAILY, (Reported) Zinc Sulfate (Zinc Sulfate), 220 MG GT DAILY, (Reported) Scheduled PRN Acetaminophen (Acetaminophen), 650 MG GT Q6HR PRN for Mild Pain (Pain Scale 1-3) , (Reported) Acetaminophen* (Acetaminophen 325MG Tablet*), 650 MG ORAL Q6HR PRN for Mild Pain /Temp > 100.5, (Reported) Bisacodyl* (Dulcolax*), 10 MG RECTAL DAILY PRN for Constipation, (Reported) Insulin Regular, Human (Humulin R), 20 UNITS SUBQ Q12HR PRN for Sliding Scale, ( Reported) Ondansetron* (Zofran*), 4 MG IV Q6H PRN for Nausea & Vomiting, (Reported) Patient History Healthcare decision maker N Resuscitation status Advanced Directive on File Review of Systems Review of Symptoms General ROS: no weight loss or fever Psychological ROS: no depression or mood changes, no memory loss Ophthalmic ROS: no visual changes or eye irritation ENT ROS: no nasal congestion, hearing loss, dizziness Allergy and Immunology ROS: no allergic symptoms or urticaria Hematological and Lymphatic ROS: no swollen glands, unusual bleeding or bruising Endocrine ROS: no polyuria, polydipsia, weight changes, temperature intolerance Respiratory ROS: no cough, shortness of breath, or wheezing Cardiovascular ROS: no chest pain or dyspnea on exertion Gastrointestinal ROS: denies abdominal pain, bright red blood in stool. Musculoskeletal ROS: no myalgias or arthralgias Neurological ROS: no TIA or stroke symptoms Dermatological ROS: no new or changing skin lesions, rashes or pruritis Physical Exam Physical Exam HEAD AND NECK: Trach in place , on T-bar , Atraumatic and normocephalic. CHEST: Diffuse bronchial breathing sounds. HEART: S1 and S2. Regular rate and rhythm. ABDOMEN: Soft. No organomegaly, NEUROLOGY: Awake, alert and oriented x1. MS: Left arm AVF-well dressed , diffuse atrophied musculature Last 24 Hour Vital Signs Date Time Temp Pulse Resp B/P (MAP) Pulse Ox O2 Delivery O2 Flow Rate FiO2 09/03/18 07:43 96 T-Piece 8.0 30 09/03/18 07:42 98 22 96 T-Piece 8.0 30 09/03/18 04:00 97.3 92 18 96/56 (69) 100 09/03/18 01:28 99 T-Piece 8.0 30 09/02/18 23:21 98.3 103 16 106/63 (77) 100 09/02/18 21:00 T-piece 8.0 09/02/18 20:22 T-piece 8.0 09/02/18 20:00 98.2 96 18 89/61 (70) 99 09/02/18 19:42 104 20 99 T-Piece 8.0 30 09/02/18 19:42 99 T-Piece 8.0 30 09/02/18 18:35 99.0 96 14 89/61 (70) 100 09/02/18 17:23 98.2 100 16 103/63 100 8.0 30 09/02/18 17:16 98.2 100 16 103/63 100 8.0 30 09/02/18 15:35 100 T-Piece 8.0 30 09/02/18 14:54 98.2 98 14 122/61 100 Trach Collar 8.0 30 09/02/18 14:50 97 18 100 T-Piece 8.0 30 09/02/18 14:43 111 14 Trach Collar 8.0 30 09/02/18 14:25 98.2 95 14 110/98 (102) 99 T-piece 5.0 Intake and Output 09/02/18 09/03/18 19:00 07:00 Intake Total 150 ml Output Total 100 ml 100 ml Balance -100 ml 50 ml Intake Free Water 150 ml Output Urine Total 100 ml 100 ml # Bowel Movements 1 Laboratory Tests Test 09/02/18 14:50 09/03/18 05:30 White Blood Count 18.9 K/UL (4.8-10.8) H 15.8 K/UL (4.8-10.8) H Red Blood Count 3.07 M/UL (4.70-6.10) L 3.03 M/UL (4.70-6.10) L Hemoglobin 9.5 G/DL (14.2-18.0) L 9.3 G/DL (14.2-18.0) L Hematocrit 27.8 % (42.0-52.0) L 28.9 % (42.0-52.0) L Mean Corpuscular Volume 90 FL (80-99) 95 FL (80-99) Mean Corpuscular Hemoglobin 31.0 PG (27.0-31.0) 30.8 PG (27.0-31.0) Mean Corpuscular Hemoglobin Concent 34.3 G/DL (32.0-36.0) 32.3 G/DL (32.0-36.0) Red Cell Distribution Width 19.8 % (11.6-14.8) H 20.6 % (11.6-14.8) H Platelet Count 388 K/UL (150-450) 378 K/UL (150-450) Mean Platelet Volume 6.2 FL (6.5-10.1) L 6.8 FL (6.5-10.1) Neutrophils (%) (Auto) % (45.0-75.0) 63.8 % (45.0-75.0) Lymphocytes (%) (Auto) % (20.0-45.0) 20.8 % (20.0-45.0) Monocytes (%) (Auto) % (1.0-10.0) 10.5 % (1.0-10.0) H Eosinophils (%) (Auto) % (0.0-3.0) 3.6 % (0.0-3.0) H Basophils (%) (Auto) % (0.0-2.0) 1.4 % (0.0-2.0) Prothrombin Time 10.2 SEC (9.30-11.50) 10.5 SEC (9.30-11.50) Prothromb Time International Ratio 1.0 (0.9-1.1) 1.0 (0.9-1.1) Activated Partial Thromboplast Time 27 SEC (23-33) 26 SEC (23-33) Sodium Level 134 MMOL/L (136-145) L 136 MMOL/L (136-145) Potassium Level 4.0 MMOL/L (3.5-5.1) 4.0 MMOL/L (3.5-5.1) Chloride Level 94 MMOL/L (98-107) L 97 MMOL/L (98-107) L Carbon Dioxide Level 27 MMOL/L (21-32) 25 MMOL/L (21-32) Anion Gap 13 mmol/L (5-15) 14 mmol/L (5-15) Blood Urea Nitrogen 60 mg/dL (7-18) H 71 mg/dL (7-18) H Creatinine 4.3 MG/DL (0.55-1.30) H 5.2 MG/DL (0.55-1.30) H Estimat Glomerular Filtration Rate 13.8 mL/min (>60) 11.1 mL/min (>60) Glucose Level 118 MG/DL (74-106) H 120 MG/DL (74-106) H Calcium Level 10.2 MG/DL (8.5-10.1) H 10.1 MG/DL (8.5-10.1) Total Bilirubin 0.4 MG/DL (0.2-1.0) Aspartate Amino Transf (AST/SGOT) 32 U/L (15-37) Alanine Aminotransferase (ALT/SGPT) 32 U/L (12-78) Alkaline Phosphatase 232 U/L (46-116) H Total Protein 9.4 G/DL (6.4-8.2) H Albumin 3.6 G/DL (3.4-5.0) Globulin 5.8 g/dL Albumin/Globulin Ratio 0.6 (1.0-2.7) L Hemoglobin A1c 5.1 % (4.3-6.0) Triglycerides Level 202 MG/DL (30-150) H Cholesterol Level 87 MG/DL (< 200) LDL Cholesterol 44 mg/dL (<100) HDL Cholesterol 27 MG/DL (40-60) L Cholesterol/HDL Ratio 3.2 (3.3-4.4) L Microbiology Date/Time Source Procedure Growth Status 09/02/18 16:00 Sputum Induced Gram Stain - Final Resulted 09/02/18 16:00 Sputum Induced Sputum Culture Pending Resulted Height (Feet): 5 Height (Inches): 6.00 Weight (Pounds): 150 Medications Current Medications Medications (Trade) Dose Ordered Sig/Xochilt Route PRN Reason Start Time Stop Time Status Last Admin Dose Admin Acetaminophen (Tylenol) 650 mg DAILYPRN PRN GT prior to wound treatment 09/02/18 20:45 10/02/18 20:44 Acetaminophen (Tylenol) 650 mg Q6H PRN GT Mild Pain/Temp > 100.0 09/02/18 20:45 10/02/18 20:44 Atorvastatin Calcium (Lipitor) 40 mg BEDTIME GT 09/02/18 21:00 10/02/18 20:59 09/02/18 21:53 Bisacodyl (Dulcolax) 10 mg DAILYPRN PRN RECTAL Constipation 09/02/18 20:45 10/02/18 20:44 Dextrose (Dextrose 50%) 25 ml Q30M PRN IV Hypoglycemia 09/02/18 20:45 10/02/18 20:44 Dextrose (Dextrose 50%) 50 ml Q30M PRN IV Hypoglycemia 09/02/18 20:45 10/02/18 20:44 Famotidine (Pepcid) 20 mg DAILY GT 09/03/18 09:00 10/03/18 08:59 09/03/18 08:17 Heparin Sodium (Porcine) (Heparin 5000 units/ml) 5,000 units EVERY 12 HOURS SUBQ 09/03/18 21:00 10/03/18 20:59 Insulin Aspart (NovoLOG) Q6HR SUBQ 09/03/18 00:00 10/02/18 20:59 09/03/18 06:10 Lactulose (Cephulac) 20 gm DAILYPRN PRN ORAL constipation 09/02/18 20:45 10/02/18 20:44 Midodrine (Pro-Amatine) 10 mg THREE TIMES A DAY ORAL 09/02/18 20:45 10/02/18 20:44 09/03/18 08:17 Sodium Phosphate (Fleet's Sodium Phosl Enema) 133 ml DAILYPRN PRN RECTAL constipation 09/02/18 20:45 10/02/18 20:44 Vitamin B Complex/ Vit C/Folic Acid (Nephrovite) 1 tab DAILY ORAL 09/03/18 09:00 10/03/18 08:59 09/03/18 08:17 Assessment/Plan Assessment/Plan: ASSESSMENT: 1. Left sided AVF Malfuntion 2. chronic encephalopathy. 3. Leukocytosis: No evidence of active acute infection 3. End-stage renal disease, on hemodialysis. 4. Hypertension. 5. Diabetes. 6. GI and DVT prophylaxis. 7. Hypertension PLAN OF CARE: Nephro ID consulted [facility] Hospital declaration INPATIENT level of care is warranted for this patient because patient is a 89 year old with who presents with suspicion of . I have a high level of concern because . Patient is at high risk for . Plan of care/treatment include . Patient care is expected to be greater than 2 midnights. OBSERVATION level of care is warranted for this patient. Patient is a 89 year old with who presents with . Patient will be admitted for 1 midnight, but if additional night(s) is/are necessary, patient will be converted to inpatient status for the entire hospitalization Disposition: Once the patient is stable to leave the hospital, I anticipate the patient will likely be discharged to the following environment: Estimated discharge date: I spent 70 minutes on this patient's case, and minutes was dedicated to counseling and/or care coordination. MIPS (Merit-based Incentive Payment System) Applicable CPT: 57294, 62638 CHECK ALL THAT ARE MET: Measure #5 (CHF): All ages. Prescribe MIGUEL/ARB upon discharge for patients with left ventricular systolic dysfunction. If not, the reason is clearly documented in the medical chart. Measure #8 (CHF): All ages. Prescribe a beta kavon upon discharge for patients with left ventricular systolic dysfunction. If not, the reason is clearly documented in the medical chart. Measure #47 Advance care plan or surrogate decision maker documented in the medical record. Measure #130 The provider has documented, updated, or reviewed the patients current medication list and has documented it in the patients note. Measure #374 (All): Send report to referring provider. Measure #407(Sepsis due to MSSA bacteremia): Age 18+ Patient treated with a beta-lactam antibiotic (Nafcillin, Oxacillin or Cefazolin) as definitive therapy. MEDICAL COMPLEXITY High complexity medical decision making (need 2/3 categories) Problem - need 4 points Acute/new problem with new plan for workup (4 points, 1 max) Acute/new problem without additional workup (3 points, 1 max) Unstable chronic problem actively being managed (2 point each, 2 max) Stable chronic problem actively being managed (1 point each, 2 max) Self-limited/transient process (constipation, muscle ache, etc) (1 point each , 2 max) Data - need 4 points Reviewed labs/imaging studies (1 points, 2 max) Independent review of imaging (EKG, xrays, etc) (2 points, 2 max) Discussed case with consult/other MD/RN (2 points, 2 max) High Risk - qualify if have one of the following: Severe exacerbation of acute problem, acute mental status change, IV narcotics , monitoring drug levels (vancomycin, INR, tacrolimus etc) Hever Olivarez MD Sep 03, 2018 09:02
--- NOTE | 2018-09-03 09:38 | NUR ---
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 ESRD VS: BP 110/98, P 111, T 98.3, RR 14, SpO2 99 on Trach Collar 8L, FiO2 30 WBC 18.9, RBC 3.07, H&H 9.5/27.8, Na 134, BUN 60, CR 4.3 IS:NOVOLOG SUBQ LEFT ARM FISTULOGRAM ADMITTED TO MED/SURG DCP: RETURN TO [facility]
[2018-09-03 11:58] VITALS: BP 103/67
--- NOTE | 2018-09-03 13:44 | NUR ---
RD ASSESSMENT & RECOMMENDATIONS SEE CARE ACTIVITY FOR COMPLETE ASSESSMENT DAILY ESTIMATED NEEDS: Needs based on Pulmonary, wound, ESRD on HD, bedbound 66kg 25-30 kcals/kg [id number] total kcals 1.25-1.8 g protein/kg 82-118 g total protein Fluid per MD, on HD NUTRITION DIAGNOSIS: 1) Increased kcal and protein needs r/t renal dysfunction, wound healing as evidenced by pt w/ ESRD on HD, admitted w/ BL buttock and sacral wound per photos, pending eval 2) Swallowing difficulty r/t respiratory status as evidenced by pt is on T-piece w/ GT to meet nutritional needs. CURRENT TF:Nepro @ 60ml/hr x 16 hrs ENTERAL NUTRITION RECOMMENDATIONS: NEPRO @40ml/hr x 24 hrs + Prosource 1pkt TID to provide 960ml, 1728kcal, 78g + 33g prot, 698ml free water - For 24 hrs run rec the above ml/ hr. - Add Prosource 1 packet TID to better meet est pro needs - Flush per MD/ HOB over 30 degrees ADDITIONAL RECOMMENDATIONS: 1) Per SNF, pt is 65", 146lbs (obtained 06/22/18) 2) Calibrated bedscale wt 3) F/up w/ WC eval-> add TAIWO BID + Nephrovite 4) Elev Triglycerides/ consider lipid lowering agent .
--- NOTE | 2018-09-03 13:48 | Consultation ---
Consult Note Consult Note I was asked by Dr Olivarez to evaluate this patient for renal consultation and dialysis management data reviewed patient examined 68 y old from ECF Trach PEG Zimmerman Right Permacath non verbal BP 90-100 syst bilateral gargling and ronchi slightly tachy 95 abd soft Labs: Anemia and WBSc of 18.9 . Assessment/Plan Sepsis: Source Permacath and or Lung ESRD Severe Anemia Sugg: Remove permacath, per Vasc surg antibiotics: One gram Vanco and 120 mg Genta after BCs vascular procedure 48 hours after negative BC results monitor WBCs HD via current functional fistula as needed CXR per orders Evgeny Burton MD Sep 03, 2018 13:48
--- NOTE | 2018-09-03 14:33 | Infectious Diseases Prog Note ---
Assessment/Plan Problems: (1) Sepsis Assessment & Plan: with leukocytosis , source ? HD catheter ? will start meropenem and vancomycin empirically pending cultures, may need HD catheter to be removed , since old and has not been used (2) AV shunt malfunction Assessment & Plan: for surgical revision tomorrow by vascular surgery, may need HD catheter removal if no need for it , once AV fistula is functional (3) Diabetes Assessment & Plan: recommend tight glycemic control to keep blood glucose between 100-140 (4) Leukocytosis Assessment & Plan: could be due to old HD catheter with infection VS Pneumonia VS CAUTI , will start meropenem and vancomycin empirically pending cultures Subjective Allergies: Coded Allergies: No Known Allergies (Unverified , 04/14/16) Objective Vital Signs Last 24 Hour Vital Signs Date Time Temp Pulse Resp B/P (MAP) Pulse Ox O2 Delivery O2 Flow Rate FiO2 09/03/18 11:58 97.9 90 18 103/67 (79) 100 09/03/18 09:00 T-piece 8.0 09/03/18 08:00 97.5 94 17 110/61 (77) 100 09/03/18 07:43 96 T-Piece 8.0 30 09/03/18 07:42 98 22 96 T-Piece 8.0 30 09/03/18 04:00 97.3 92 18 96/56 (69) 100 09/03/18 01:28 99 T-Piece 8.0 30 09/02/18 23:21 98.3 103 16 106/63 (77) 100 09/02/18 21:00 T-piece 8.0 09/02/18 20:22 T-piece 8.0 09/02/18 20:00 98.2 96 18 89/61 (70) 99 09/02/18 19:42 104 20 99 T-Piece 8.0 30 09/02/18 19:42 99 T-Piece 8.0 30 09/02/18 18:35 99.0 96 14 89/61 (70) 100 09/02/18 17:23 98.2 100 16 103/63 100 8.0 30 09/02/18 17:16 98.2 100 16 103/63 100 8.0 30 09/02/18 15:35 100 T-Piece 8.0 30 09/02/18 14:54 98.2 98 14 122/61 100 Trach Collar 8.0 30 09/02/18 14:50 97 18 100 T-Piece 8.0 30 09/02/18 14:43 111 14 Trach Collar 8.0 30 09/02/18 14:25 98.2 95 14 110/98 (102) 99 T-piece 5.0 Height (Feet): 5 Height (Inches): 6.00 Weight (Pounds): 150 Microbiology Date/Time Source Procedure Growth Status 09/02/18 16:00 Sputum Induced Gram Stain - Final Resulted 09/02/18 16:00 Sputum Induced Sputum Culture Pending Resulted Laboratory Tests Test 09/02/18 14:50 09/03/18 05:30 White Blood Count 18.9 K/UL (4.8-10.8) H 15.8 K/UL (4.8-10.8) H Red Blood Count 3.07 M/UL (4.70-6.10) L 3.03 M/UL (4.70-6.10) L Hemoglobin 9.5 G/DL (14.2-18.0) L 9.3 G/DL (14.2-18.0) L Hematocrit 27.8 % (42.0-52.0) L 28.9 % (42.0-52.0) L Mean Corpuscular Volume 90 FL (80-99) 95 FL (80-99) Mean Corpuscular Hemoglobin 31.0 PG (27.0-31.0) 30.8 PG (27.0-31.0) Mean Corpuscular Hemoglobin Concent 34.3 G/DL (32.0-36.0) 32.3 G/DL (32.0-36.0) Red Cell Distribution Width 19.8 % (11.6-14.8) H 20.6 % (11.6-14.8) H Platelet Count 388 K/UL (150-450) 378 K/UL (150-450) Mean Platelet Volume 6.2 FL (6.5-10.1) L 6.8 FL (6.5-10.1) Neutrophils (%) (Auto) % (45.0-75.0) 63.8 % (45.0-75.0) Lymphocytes (%) (Auto) % (20.0-45.0) 20.8 % (20.0-45.0) Monocytes (%) (Auto) % (1.0-10.0) 10.5 % (1.0-10.0) H Eosinophils (%) (Auto) % (0.0-3.0) 3.6 % (0.0-3.0) H Basophils (%) (Auto) % (0.0-2.0) 1.4 % (0.0-2.0) Prothrombin Time 10.2 SEC (9.30-11.50) 10.5 SEC (9.30-11.50) Prothromb Time International Ratio 1.0 (0.9-1.1) 1.0 (0.9-1.1) Activated Partial Thromboplast Time 27 SEC (23-33) 26 SEC (23-33) Sodium Level 134 MMOL/L (136-145) L 136 MMOL/L (136-145) Potassium Level 4.0 MMOL/L (3.5-5.1) 4.0 MMOL/L (3.5-5.1) Chloride Level 94 MMOL/L (98-107) L 97 MMOL/L (98-107) L Carbon Dioxide Level 27 MMOL/L (21-32) 25 MMOL/L (21-32) Anion Gap 13 mmol/L (5-15) 14 mmol/L (5-15) Blood Urea Nitrogen 60 mg/dL (7-18) H 71 mg/dL (7-18) H Creatinine 4.3 MG/DL (0.55-1.30) H 5.2 MG/DL (0.55-1.30) H Estimat Glomerular Filtration Rate 13.8 mL/min (>60) 11.1 mL/min (>60) Glucose Level 118 MG/DL (74-106) H 120 MG/DL (74-106) H Calcium Level 10.2 MG/DL (8.5-10.1) H 10.1 MG/DL (8.5-10.1) Total Bilirubin 0.4 MG/DL (0.2-1.0) Aspartate Amino Transf (AST/SGOT) 32 U/L (15-37) Alanine Aminotransferase (ALT/SGPT) 32 U/L (12-78) Alkaline Phosphatase 232 U/L (46-116) H Total Protein 9.4 G/DL (6.4-8.2) H Albumin 3.6 G/DL (3.4-5.0) Globulin 5.8 g/dL Albumin/Globulin Ratio 0.6 (1.0-2.7) L Hemoglobin A1c 5.1 % (4.3-6.0) Triglycerides Level 202 MG/DL (30-150) H Cholesterol Level 87 MG/DL (< 200) LDL Cholesterol 44 mg/dL (<100) HDL Cholesterol 27 MG/DL (40-60) L Cholesterol/HDL Ratio 3.2 (3.3-4.4) L Current Medications Medications (Trade) Dose Ordered Sig/Xochilt Route PRN Reason Start Time Stop Time Status Last Admin Dose Admin Acetaminophen (Tylenol) 650 mg DAILYPRN PRN GT prior to wound treatment 09/02/18 20:45 10/02/18 20:44 Acetaminophen (Tylenol) 650 mg Q6H PRN GT Mild Pain/Temp > 100.0 09/02/18 20:45 10/02/18 20:44 Atorvastatin Calcium (Lipitor) 40 mg BEDTIME GT 09/02/18 21:00 10/02/18 20:59 09/02/18 21:53 Bisacodyl (Dulcolax) 10 mg DAILYPRN PRN RECTAL Constipation 09/02/18 20:45 10/02/18 20:44 Dextrose (Dextrose 50%) 25 ml Q30M PRN IV Hypoglycemia 09/02/18 20:45 10/02/18 20:44 Dextrose (Dextrose 50%) 50 ml Q30M PRN IV Hypoglycemia 09/02/18 20:45 10/02/18 20:44 Famotidine (Pepcid) 20 mg DAILY GT 09/03/18 09:00 10/03/18 08:59 09/03/18 08:17 Gentamicin Sulfate/Sodium Chloride 100 ml @ 200 mls/hr ONCE ONCE IVPB 09/03/18 15:00 09/03/18 15:29 Heparin Sodium (Porcine) (Heparin 5000 units/ml) 5,000 units EVERY 12 HOURS SUBQ 09/03/18 21:00 10/03/18 20:59 Insulin Aspart (NovoLOG) Q6HR SUBQ 09/03/18 00:00 10/02/18 20:59 09/03/18 13:04 Lactulose (Cephulac) 20 gm DAILYPRN PRN ORAL constipation 09/02/18 20:45 10/02/18 20:44 Midodrine (Pro-Amatine) 10 mg THREE TIMES A DAY ORAL 09/02/18 20:45 10/02/18 20:44 09/03/18 13:00 Sodium Phosphate (Fleet's Sodium Phosl Enema) 133 ml DAILYPRN PRN RECTAL constipation 09/02/18 20:45 10/02/18 20:44 Vancomycin HCl/ Dextrose 275 ml @ 183.333 mls/hr ONCE ONCE IVPB 09/03/18 15:30 09/03/18 16:59 Vitamin B Complex/ Vit C/Folic Acid (Nephrovite) 1 tab DAILY ORAL 09/03/18 09:00 10/03/18 08:59 09/03/18 08:17 Devika Gaitan M.D. Sep 03, 2018 14:33
[2018-09-03] MEDS ORDERED: Gentamicin 120mg/100ml NS INJ 100 ML IVPB ONE (15:00)
[2018-09-03] MEDS ORDERED: Gentamicin inj 120 MG in NS 110 ML IVPB ONE (15:00)
[2018-09-03] MEDS ORDERED: Vancomycin 275 ML IVPB ONE (15:30)
[2018-09-03 16:08] VITALS: BP 108/60
--- NOTE | 2018-09-03 16:30 | Diagnostic Imaging Report ---
Indication: Cough Technique: One view of the chest Comparison: 06/26/2018 Findings: There is some atelectasis at the right lung base. The lungs and pleural spaces are otherwise clear. Right jugular tunneled dialysis catheter is again demonstrated. There is a tracheostomy. Impression: Right basilar atelectasis No acute process otherwise
--- NOTE | 2018-09-03 19:00 | Consultation ---
DATE OF CONSULTATION: 09/03/2018 INFECTIOUS DISEASE CONSULTATION CONSULTING PHYSICIAN: Devika Gaitan M.D. REFERRING PHYSICIAN: Hever Olivarez M.D. REASON FOR CONSULTATION: Sepsis with leukocytosis, unclear source. Recommendation for antimicrobial treatment in hemodialysis patient. HISTORY OF PRESENT ILLNESS: The patient is a 68-year-old male with past medical history of end-stage renal disease, on hemodialysis via AV fistula, who had an old right chest hemodialysis catheter, unclear whether it has been used for dialysis or not and how old it has been there; CVA; encephalopathy; pressure wounds; dysphagia; and chronic respiratory failure, status post trach, was sent to [facility] for malfunctioning hemodialysis AV fistula. The patient was supposed to get dialysis by his dialysis center, but they were unable to do so. Last dialysis he had the day before yesterday and the patient was sent to the emergency room for evaluation of his left arm AV fistula malfunction. The patient has chronic right chest hemodialysis catheter. Unclear whether it has been used or not in the past and for how long it has been there. Workup in the emergency room revealed significant leukocytosis concerning for sepsis. So, he was given vancomycin and gentamicin by the demurrage agent and Infectious Disease consultation was requested for antibiotics treatment and further management. As of note, the patient is nonverbal, cannot provide any history. History was mainly obtained from the medical record and nursing staff. REVIEW OF SYSTEMS: Unable to obtain, the patient is poor historian. PAST MEDICAL HISTORY: Significant for CVA, end-stage renal disease, dysphagia, encephalopathy, and decubitus wounds. SOCIAL HISTORY: The patient is a halfway facility resident. Denied recent drugs, tobacco, or alcohol abuse. FAMILY HISTORY: Unable to obtain. ALLERGIES: He has no known drug allergies. MEDICATIONS: He received vancomycin once and gentamicin once. For the rest of his medications, please refer to [facility]. PHYSICAL EXAMINATION: VITAL SIGNS: Temperature 97.9, pulse 90, respirations 18, and blood pressure 103/67. Saturation 100% on T-piece with FiO2 of 30%. GENERAL: Elderly male cachectic, on trach ventilation, not in acute distress. HEENT: Normocephalic and atraumatic. Pupils are reactive to light. Pale sclerae. Moist oral mucosa. No exudate or thrush. NECK: Supple. No lymphadenopathy. Trach site looks intact. No drainage or pus. CARDIOVASCULAR: Regular rate and rhythm. No murmur or gallop. LUNGS: Clear bilaterally. Diminished breathing sounds at the bases with some crackles. Normal breathing efforts. ABDOMEN: Soft, nontender, and nondistended. Normal bowel sounds. No hepatosplenomegaly or ascites. PEG tube site looks intact. EXTREMITIES: Left upper extremity fistula with good bruits were heard through the fistula covered with dressing and gauze. No sign of local infection of the fistula. Lower extremity, no edema or cyanosis. SKIN: He had pressure wounds in the sacrum. Deep tissue injury in the heels. None of them seems to be infected. LABORATORY DATA: Showed white count of 15,800, hemoglobin of 9.3, and platelet count of 378. BUN of 71, creatinine of 5.2. Alkaline phosphatase of 232. Microbiology - sputum culture is pending. Imaging - pending ASSESSMENT AND RECOMMENDATION: 1. Sepsis with leukocytosis, source unclear. Whether his old hemodialysis catheter is the source or may be pneumonia or urinary tract infection. We will start meropenem and vancomycin empirically pending other cultures. May need hemodialysis catheter to be removed with no other clear source since old and has not been used recently. 2. AV shunt malfunction for surgical revision tomorrow by vascular surgery. May need hemodialysis catheter removal too if no need for it once AV fistula is functional. 3. Diabetes. Recommend tight glycemic control to keep blood glucose between 100 to 140. 4. Leukocytosis, could be due to old hemodialysis catheter with infection versus pneumonia versus catheter-associated urinary tract infection. We will start meropenem and vancomycin empirically pending cultures. Thank you for the consult. ID will continue to follow. Devika Gaitan M.D. DR: STEPH JOB#: [id number] CC:
--- NOTE | 2018-09-03 19:45 | NUR ---
NURSE NOTES: Patient received in bed, awake, nonverbal, on TPiece at 30% FiO2 with inline suction. Appears in no acute distress at this time. IV abx finished infusing, noted redness on right hand IV. Will discontinue and insert new IV access. FC is draining very cloudy sotero urine, will collect fresh urine per MD order. HOB elevated, GTF infusing, no residual noted. Repositioned for comfort. Will monitor.
--- NOTE | 2018-09-03 19:47 | NUR ---
HAND-OFF: Report given to Yisel BOGGS.
[2018-09-03 20:00] VITALS: BP 96/61
[2018-09-03] MEDS: Atorvastatin 20mg tab GT SCH (20:57)
[2018-09-03] MEDS: Meropenem 500 MG in NS 55 ML IVPB SCH (20:58)
[2018-09-03] MEDS: Heparin 5000 units/ml inj SUBQ SCH (21:00)
[2018-09-03 21:15] LABS: APPEARANCE,URINE TURBID; BILIRUBIN, URINE NEGATIVE (NEGATIVE); COLOR,URINE ORANGE; GLUCOSE, URINE (UA) NEGATIVE (NEGATIVE); KETONES,URINE 1+ (NEGATIVE); LEUKOCYTE ESTERASE ,URINE 3+ (NEGATIVE); NITRITE,URINE POSITIVE (NEGATIVE); PH,URINE 6 (4.5-8.0); PROTEIN,URINE 4+ (NEGATIVE); UROBILINOGEN,URINE NORMAL MG/DL (0.0-1.0)
[2018-09-04] VITALS (10 sets, daily range): BP systolic 98–117; BP diastolic 61–73
--- NOTE | 2018-09-04 02:00 | NUR ---
NURSE NOTES: Patient was moved to another bacova bed with DRAGAN overlay mattress. Bed is also zeroed and able to obtain accurate weight.
[2018-09-04] MEDS: NovoLOG Insulin Flexpen SUBQ SCH ×3 (06:14→17:37)
[2018-09-04 06:54] LABS: HEMATOCRIT 30.2 % (42.0-52.0); HEMOGLOBIN 9.9 G/DL (14.2-18.0); MEAN CORPUSCULAR VOLUME 94 FL (80-99); PLATELET COUNT 406 K/UL (150-450); RED CELL DISTRIBUTION WIDTH 20.7 % (11.6-14.8)
[2018-09-04 07:14] LABS: ALANINE AMINOTRANSFERASE 35 U/L (12-78); ALBUMIN 3.3 G/DL (3.4-5.0); ALBUMIN/GLOBULIN RATIO 0.5 (1.0-2.7); ALKALINE PHOSPHATASE 182 U/L (46-116); ANION GAP 15 mmol/L (5-15); ASPARTATE AMINO TRANSFERASE 22 U/L (15-37); BILIRUBIN,TOTAL 0.6 MG/DL (0.2-1.0); BLOOD UREA NITROGEN 80 mg/dL (7-18); CALCIUM 10.3 MG/DL (8.5-10.1); CARBON DIOXIDE 24 MMOL/L (21-32); CHLORIDE 98 MMOL/L (98-107); CHOLESTEROL 102 MG/DL (< 200); CREATINE KINASE 73 U/L (26-308); CREATININE 6.6 MG/DL (0.55-1.30); FERRITIN 1631 NG/ML (8-388); GAMMA GLUTAMYL TRANSPEPTIDASE 57 U/L (5-85); HDL CHOLESTEROL 26 MG/DL (40-60); PHOSPHORUS 4.9 MG/DL (2.5-4.9); POTASSIUM 4.4 MMOL/L (3.5-5.1); SODIUM 137 MMOL/L (136-145); TRIGLYCERIDES 281 MG/DL (30-150)
--- NOTE | 2018-09-04 07:20 | NUR ---
HAND-OFF: Report given to Jennifer BOGGS. Patient was kept NPO p midnight.
--- NOTE | 2018-09-04 07:29 | NUR ---
NURSE NOTES: Patient received sleeping in bed. Trach collar intact and in place. Patient is NPO awaiting surgery today. G-tube is clamped. Zimmerman catheter patent and intact. IV site on right hand observed. HOB elevated, bed locked. Call light placed within reach. WIll continue to monitor.
--- NOTE | 2018-09-04 07:46 | NUR ---
NURSE NOTES: Spoke with Sierra from [facility] to schedule inpatient hemodialysis today per MD's orders.
[2018-09-04 07:53] LABS: % IRON SATURATION 17 % (15-50); IRON 33 ug/dL (50-175); TOTAL IRON BINDING CAPACITY 194 ug/dL (250-450)
[2018-09-04] MEDS: Midodrine 10mg tab ORAL SCH ×3 (08:40→17:05)
[2018-09-04] MEDS: Nephrovite tab (Rena-Vite) ORAL SCH (08:41)
[2018-09-04] MEDS: Heparin 5000 units/ml inj SUBQ SCH ×2 (08:41→21:23)
[2018-09-04] MEDS ORDERED: Bacitracin Oint 15gm Tube TOPIC ONE (10:32)
[2018-09-04] MEDS ORDERED: Heparin 5000 units/ml inj ONE (10:33)
[2018-09-04] MEDS ORDERED: Bupivacaine 0.5% Inj 30 ml vial INJ ONE (10:33)
[2018-09-04] MEDS ORDERED: Heparin 1000 units/ml 1ml Vial ONE (10:33)
[2018-09-04] MEDS ORDERED: Lidocaine 1% Plain 30 ml INJ ONE (10:33)
[2018-09-04] MEDS ORDERED: Bacitracin 50000 Units Vial ONE (10:33)
--- NOTE | 2018-09-04 10:36 | General Progress Note ---
Assessment/Plan Assessment/Plan: S: poor historian O: appears comfortable, no sob, T-piece in place. HEAD AND NECK: Trach in place , on T-piece , Atraumatic and normocephalic. CHEST: Diffuse bronchial breathing sounds. HEART: S1 and S2. Regular rate and rhythm. ABDOMEN: Soft. No organomegaly, NEUROLOGY: Awake, alert and oriented x1. MS: Left arm AVF-well dressed , diffuse atrophied musculature Prior records of Blood cultures are reviewed, all negative ASSESSMENT: 1. Left sided AVF Malfuntion 2. chronic encephalopathy. 3. Leukocytosis: No evidence of active acute infection 3. End-stage renal disease, on hemodialysis. 4. Hypertension. 5. Diabetes. 6. GI and DVT prophylaxis. 7. Hypertension PLAN OF CARE: Nephro ID notes reviewed Will send blood cultures NO evidence of active Acute infectious agree with empirical abx Subjective Allergies: Coded Allergies: No Known Allergies (Unverified , 04/14/16) Objective Last 24 Hour Vital Signs Date Time Temp Pulse Resp B/P (MAP) Pulse Ox O2 Delivery O2 Flow Rate FiO2 09/04/18 08:35 97 20 98 T-Piece 8.0 30 09/04/18 08:35 98 T-Piece 8.0 30 09/04/18 08:00 97.3 79 20 98/69 (79) 99 09/04/18 04:00 97.9 87 19 102/65 (77) 98 09/04/18 00:00 97.2 91 19 108/66 (80) 100 09/03/18 23:54 98 T-Piece 8.0 30 09/03/18 21:00 T-piece 8.0 09/03/18 20:00 98.2 88 20 96/61 (73) 99 09/03/18 19:53 87 22 98 T-Piece 8.0 30 09/03/18 19:52 98 T-Piece 8.0 30 09/03/18 16:08 97.9 79 17 108/60 (76) 100 09/03/18 13:55 97 T-Piece 8.0 30 09/03/18 11:58 97.9 90 18 103/67 (79) 100 Intake and Output 09/03/18 09/04/18 19:00 07:00 Intake Total 85 ml 415 ml Output Total 200 ml Balance 85 ml 215 ml Intake Free Water 180 ml IV Total 55 ml Tube Feeding 85 ml 180 ml Output Urine Total 200 ml Laboratory Tests 09/03/18 21:00: Urine Color [place], Urine Appearance Turbid, Urine pH 6, Urine Specific [place] 1.010, Urine Protein 4+H, Urine Glucose (UA) Negative, Urine Ketones 1+H, Urine Blood 5+H, Urine Nitrite PositiveH, Urine Bilirubin Negative, Urine Urobilinogen Normal, Urine Leukocyte Esterase 3+H, Urine RBC TntcH, Urine WBC TntcH, Urine Squamous Epithelial Cells Occasional, Urine Bacteria ManyH 09/04/18 06:00: White Blood Count 16.0H, Red Blood Count 3.20L, Hemoglobin 9.9L, Hematocrit 30.2L, Mean Corpuscular Volume 94, Mean Corpuscular Hemoglobin 30.9, Mean Corpuscular Hemoglobin Concent 32.7, Red Cell Distribution Width 20.7H, Platelet Count 406, Mean Platelet Volume 7.0, Neutrophils (%) (Auto) , Lymphocytes (%) (Auto) , Monocytes (%) (Auto) , Eosinophils (%) (Auto) , Basophils (%) (Auto) , Differential Total Cells Counted 100, Neutrophils % ( Manual) 66, Lymphocytes % (Manual) 22, Monocytes % (Manual) 9, Eosinophils % ( Manual) 3, Basophils % (Manual) 0, Band Neutrophils 0, Platelet Estimate Adequate, Platelet Morphology Normal, Polychromasia 2+, Hypochromasia 1+, Anisocytosis 2+, Sodium Level 137, Potassium Level 4.4, Chloride Level 98, Carbon Dioxide Level 24, Anion Gap 15, Blood Urea Nitrogen 80H, Creatinine 6.6H , Estimat Glomerular Filtration Rate 8.4, Glucose Level 119H, Uric Acid 9.5H, Calcium Level 10.3H, Phosphorus Level 4.9, Magnesium Level 2.7H, Iron Level 33L , Total Iron Binding Capacity 194L, Percent Iron Saturation 17, Unsaturated Iron Binding 161, Ferritin 1631H, Total Bilirubin 0.6, Gamma Glutamyl Transpeptidase 57, Aspartate Amino Transf (AST/SGOT) 22, Alanine Aminotransferase (ALT/SGPT) 35, Alkaline Phosphatase 182H, Total Creatine Kinase 73, Troponin I 0.000, C-Reactive Protein, Quantitative 6.5H, Pro-B-Type Natriuretic Peptide 1535H, Total Protein 9.4H, Albumin 3.3L, Globulin 6.1, Albumin/Globulin Ratio 0.5L, Triglycerides Level 281H, Cholesterol Level 102, LDL Cholesterol 51, HDL Cholesterol 26L, Cholesterol/HDL Ratio 3.9, Vitamin B12 Level 1153H, Folate 87.0H, Thyroid Stimulating Hormone (TSH) 3.136, Random Gentamicin Level 7.1, Random Vancomycin Level 25.4 Height (Feet): 5 Height (Inches): 5.00 Weight (Pounds): 150 Hever Olivarez MD Sep 04, 2018 10:36
[2018-09-04] MEDS ORDERED: fentaNYL 100 mcg/2 mL IV ONE (10:39)
[2018-09-04] MEDS ORDERED: Propofol 200mg/20ml IV ONE (10:40)
[2018-09-04] MEDS ORDERED: Lidocaine 1% MPF 10mg/ml 5ml ONE (10:40)
--- NOTE | 2018-09-04 10:49 | Pre-Procedure Note/Attestation ---
Pre-Procedure Note/Attestation Complete Prior to Procedure Planned Procedure: left Procedure Narrative: left arm fistulogram; possible intervention and catheter removal/replacement Indications for Procedure Pre-Operative Diagnosis: AVF malfunction Attestation I attest that I discussed the nature of the procedure; its benefits; risks and complications; and alternatives (and the risks and benefits of such alternatives ), prior to the procedure, with the patient (or the patient's legal retail service representative). I attest that, if there was a reasonable possibility of needing a blood transfusion, the patient (or the patient's legal retail service representative) was given the [facility] standardized written summary, pursuant to the Robert Rafael Pena Blood Safety Act ([place] Health and Safety Code # 1645, as amended). I attest that I re-evaluated the patient just prior to the surgery and that there has been no change in the patient's H&P, except as documented below: Shine Good MD Sep 04, 2018 10:49
[2018-09-04] MEDS ORDERED: BSS 15ml BTL ONE (10:55)
[2018-09-04] MEDS ORDERED: Sterile Water Irrig 1000ml IRRIG ONE (11:00)
[2018-09-04] MEDS ORDERED: NS Irrig 1000ml ONE (11:00)
[2018-09-04] MEDS ORDERED: NS 500ML IVPB ONE (11:15)
[2018-09-04] MEDS ORDERED: fentaNYL 100 mcg/2 mL IV PRN (12:15)
--- NOTE | 2018-09-04 12:15 | Anethesia Preoperative Eval ---
Anesthesia Pre-op PMH/ROS General Date of Evaluation: Sep 04, 2018 Time of Evaluation: 11:02 Anesthesiologist: Zonia ASA Score: ASA 4 Mallampati Score Class I : Soft palate, uvula, fauces, pillars visible Class II: Soft palate, uvula, fauces visible Class III: Soft palate, base of uvula visible Class IV: Only hard plate visible Mallampati Classification: Class III Surgeon: Florentino Diagnosis: Mulfunctioning A-V fistula Surgical Procedure: Revision of L arm A-V fistula Anesthesia History: none Family History: no anesthesia problems Allergies: Coded Allergies: No Known Allergies (Unverified , 04/14/16) Patient NPO?: Yes NPO Date: Sep 04, 2018 NPO Time: 0000 Past Medical History Cardiovascular: Reports: HTN; Denies: CAD, RI, valve dz, arrhythmia, other Pulmonary: Reports: other - respiratory failure trach in place; Denies: asthma, COPD, [place] Gastrointestinal/Genitourinary: Reports: GERD, ESRD, other - Dysphagia feeding tube in place; Denies: CRI Neurologic/Psychiatric: Reports: dementia, CVA; Denies: depression/anxiety, TIA, other Endocrine: Reports: DM - on insulin, hypothyroidism; Denies: steroids, other HEENT: Denies: cataract (L), cataract (R), glaucoma, [place] (L), [place] (R), other Hematology/Immune: Reports: anemia - of chronic d-s; Denies: DVT, bleeding disorder, other Musculoskeletal/Integumentary: Reports: DJD, other - severly contructed; Denies: OA, RA, DDD, edema Other: other - malnourished PMH Narrative: as above PSxH Narrative: see H&P Anesthesia Pre-op Phys. Exam Physician Exam Last Vital Signs Date Time Temp Pulse Resp B/P (MAP) Pulse Ox O2 Delivery O2 Flow Rate FiO2 09/04/18 09:00 T-piece 8.0 09/04/18 08:35 97 20 98 30 09/04/18 08:00 97.3 98/69 (79) Constitutional: NAD Neurologic: other - unable to obtaine Cardiovascular: RRR Respiratory: other - some rhonchi bilaterally Gastrointestinal: S/NT/ND Airway Exam Mallampati Score: Class III - tracheostomy Neck: stiff ROM: limited Teeth: missing, broken Dentures: no upper, no lower Anesthesia Pre-op A/P Labs Hematology Test 09/04/18 06:00 White Blood Count 16.0 K/UL (4.8-10.8) H Red Blood Count 3.20 M/UL (4.70-6.10) L Hemoglobin 9.9 G/DL (14.2-18.0) L Hematocrit 30.2 % (42.0-52.0) L Mean Corpuscular Volume 94 FL (80-99) Mean Corpuscular Hemoglobin 30.9 PG (27.0-31.0) Mean Corpuscular Hemoglobin Concent 32.7 G/DL (32.0-36.0) Red Cell Distribution Width 20.7 % (11.6-14.8) H Platelet Count 406 K/UL (150-450) Mean Platelet Volume 7.0 FL (6.5-10.1) Neutrophils (%) (Auto) % (45.0-75.0) Lymphocytes (%) (Auto) % (20.0-45.0) Monocytes (%) (Auto) % (1.0-10.0) Eosinophils (%) (Auto) % (0.0-3.0) Basophils (%) (Auto) % (0.0-2.0) Differential Total Cells Counted 100 Neutrophils % (Manual) 66 % (45-75) Lymphocytes % (Manual) 22 % (20-45) Monocytes % (Manual) 9 % (1-10) Eosinophils % (Manual) 3 % (0-3) Basophils % (Manual) 0 % (0-2) Band Neutrophils 0 % (0-8) Platelet Estimate Adequate Platelet Morphology Normal Polychromasia 2+ Hypochromasia 1+ Anisocytosis 2+ Chemistry Test 09/04/18 06:00 Sodium Level 137 MMOL/L (136-145) Potassium Level 4.4 MMOL/L (3.5-5.1) Chloride Level 98 MMOL/L (98-107) Carbon Dioxide Level 24 MMOL/L (21-32) Anion Gap 15 mmol/L (5-15) Blood Urea Nitrogen 80 mg/dL (7-18) H Creatinine 6.6 MG/DL (0.55-1.30) H Estimat Glomerular Filtration Rate 8.4 mL/min (>60) Glucose Level 119 MG/DL (74-106) H Uric Acid 9.5 MG/DL (2.6-7.2) H Calcium Level 10.3 MG/DL (8.5-10.1) H Phosphorus Level 4.9 MG/DL (2.5-4.9) Magnesium Level 2.7 MG/DL (1.8-2.4) H Iron Level 33 ug/dL (50-175) L Total Iron Binding Capacity 194 ug/dL (250-450) L Percent Iron Saturation 17 % (15-50) Unsaturated Iron Binding 161 ug/dL (112-346) Ferritin 1631 NG/ML (8-388) H Total Bilirubin 0.6 MG/DL (0.2-1.0) Gamma Glutamyl Transpeptidase 57 U/L (5-85) Aspartate Amino Transf (AST/SGOT) 22 U/L (15-37) Alanine Aminotransferase (ALT/SGPT) 35 U/L (12-78) Alkaline Phosphatase 182 U/L (46-116) H Total Creatine Kinase 73 U/L (26-308) Troponin I 0.000 ng/mL (0.000-0.056) C-Reactive Protein, Quantitative 6.5 mg/dL (0.00-0.90) H Pro-B-Type Natriuretic Peptide 1535 pg/mL (0-125) H Total Protein 9.4 G/DL (6.4-8.2) H Albumin 3.3 G/DL (3.4-5.0) L Globulin 6.1 g/dL Albumin/Globulin Ratio 0.5 (1.0-2.7) L Triglycerides Level 281 MG/DL (30-150) H Cholesterol Level 102 MG/DL (< 200) LDL Cholesterol 51 mg/dL (<100) HDL Cholesterol 26 MG/DL (40-60) L Cholesterol/HDL Ratio 3.9 (3.3-4.4) Vitamin B12 Level 1153 PG/ML (193-986) H Folate 87.0 NG/ML (8.6-58.9) H Thyroid Stimulating Hormone (TSH) 3.136 uiU/mL (0.358-3.740) Risk Assessment & Plan Assessment: ASA 4 Plan: GA with trach Status Change Before Surgery: No Pre-Antibiotics Drug: Ancef 1gr. Given Within 1 Hr of Incision: Yes Time Given: 11:52 Shon Brar MD Sep 04, 2018 12:15
--- NOTE | 2018-09-04 12:42 | Brief Operative Note ---
Immediate Post Operative Note Operative Note Pre-op Diagnosis: AVF malfunction Procedure: left arm fistulogram with [employer] PILOT; removal of PermCath Post-op Diagnosis: same as pre-op Findings: consistent w/pre-op dx studies Surgeon: Lázaro Good Anesthesiologist: Quique Brar Anesthesia: general Specimen: yes - PermCath tip for C&S Complications: none Condition: stable Fluids: see anesth. record Estimated Blood Loss: minimal Drains: none Implant(s) used?: No Shine Good MD Sep 04, 2018 12:42
--- NOTE | 2018-09-04 14:50 | Nephrology Progress Note ---
Assessment/Plan Problem List: (1) ESRD (end stage renal disease) on dialysis (2) Sepsis (3) Anemia in chronic kidney disease (CKD) Assessment Sepsis: Source Permacath and or Lung ESRD Severe Anemia Plan Remove permacath, per Vasc surg antibiotics: One gram Vanco and 120 mg Genta after BCs- further AbRx per ID vascular procedure 48 hours after negative BC results monitor WBCs HD via current functional fistula as needed- ordered 09/04 CXR noted BC results pending per orders suction frequently Subjective ROS Limited/Unobtainable: Yes Objective Objective Last 24 Hour Vital Signs Date Time Temp Pulse Resp B/P (MAP) Pulse Ox O2 Delivery O2 Flow Rate FiO2 09/04/18 13:15 97.4 88 23 116/73 100 Simple Mask 8 09/04/18 13:05 87 24 112/63 100 Simple Mask 8 09/04/18 12:55 87 25 109/69 100 Simple Mask 8 09/04/18 12:50 86 22 111/73 100 Simple Mask 8 09/04/18 12:43 97.6 87 24 115/73 100 Simple Mask 8 09/04/18 09:00 T-piece 8.0 09/04/18 08:35 97 20 98 T-Piece 8.0 30 09/04/18 08:35 98 T-Piece 8.0 30 09/04/18 08:00 97.3 79 20 98/69 (79) 99 09/04/18 04:00 97.9 87 19 102/65 (77) 98 09/04/18 00:00 97.2 91 19 108/66 (80) 100 09/03/18 23:54 98 T-Piece 8.0 30 09/03/18 21:00 T-piece 8.0 09/03/18 20:00 98.2 88 20 96/61 (73) 99 09/03/18 19:53 87 22 98 T-Piece 8.0 30 09/03/18 19:52 98 T-Piece 8.0 30 09/03/18 16:08 97.9 79 17 108/60 (76) 100 Intake and Output 09/03/18 09/04/18 19:00 07:00 Intake Total 85 ml 415 ml Output Total 200 ml Balance 85 ml 215 ml Intake Free Water 180 ml IV Total 55 ml Tube Feeding 85 ml 180 ml Output Urine Total 200 ml Laboratory Tests 09/03/18 21:00: Urine Color [place], Urine Appearance Turbid, Urine pH 6, Urine Specific [place] 1.010, Urine Protein 4+H, Urine Glucose (UA) Negative, Urine Ketones 1+H, Urine Blood 5+H, Urine Nitrite PositiveH, Urine Bilirubin Negative, Urine Urobilinogen Normal, Urine Leukocyte Esterase 3+H, Urine RBC TntcH, Urine WBC TntcH, Urine Squamous Epithelial Cells Occasional, Urine Bacteria ManyH 09/04/18 06:00: White Blood Count 16.0H, Red Blood Count 3.20L, Hemoglobin 9.9L, Hematocrit 30.2L, Mean Corpuscular Volume 94, Mean Corpuscular Hemoglobin 30.9, Mean Corpuscular Hemoglobin Concent 32.7, Red Cell Distribution Width 20.7H, Platelet Count 406, Mean Platelet Volume 7.0, Neutrophils (%) (Auto) , Lymphocytes (%) (Auto) , Monocytes (%) (Auto) , Eosinophils (%) (Auto) , Basophils (%) (Auto) , Differential Total Cells Counted 100, Neutrophils % ( Manual) 66, Lymphocytes % (Manual) 22, Monocytes % (Manual) 9, Eosinophils % ( Manual) 3, Basophils % (Manual) 0, Band Neutrophils 0, Platelet Estimate Adequate, Platelet Morphology Normal, Polychromasia 2+, Hypochromasia 1+, Anisocytosis 2+, Sodium Level 137, Potassium Level 4.4, Chloride Level 98, Carbon Dioxide Level 24, Anion Gap 15, Blood Urea Nitrogen 80H, Creatinine 6.6H , Estimat Glomerular Filtration Rate 8.4, Glucose Level 119H, Uric Acid 9.5H, Calcium Level 10.3H, Phosphorus Level 4.9, Magnesium Level 2.7H, Iron Level 33L , Total Iron Binding Capacity 194L, Percent Iron Saturation 17, Unsaturated Iron Binding 161, Ferritin 1631H, Total Bilirubin 0.6, Gamma Glutamyl Transpeptidase 57, Aspartate Amino Transf (AST/SGOT) 22, Alanine Aminotransferase (ALT/SGPT) 35, Alkaline Phosphatase 182H, Total Creatine Kinase 73, Troponin I 0.000, C-Reactive Protein, Quantitative 6.5H, Pro-B-Type Natriuretic Peptide 1535H, Total Protein 9.4H, Albumin 3.3L, Globulin 6.1, Albumin/Globulin Ratio 0.5L, Triglycerides Level 281H, Cholesterol Level 102, LDL Cholesterol 51, HDL Cholesterol 26L, Cholesterol/HDL Ratio 3.9, Vitamin B12 Level 1153H, Folate 87.0H, Thyroid Stimulating Hormone (TSH) 3.136, Random Gentamicin Level 7.1, Random Vancomycin Level 25.4 Height (Feet): 5 Height (Inches): 5.00 Weight (Pounds): 150 General Appearance: no apparent distress EENT: other - trach Cardiovascular: normal rate Respiratory/Chest: decreased breath sounds, other - upper respiratory gargle sounds Abdomen: other - PEG Evgeny Burton MD Sep 04, 2018 14:50
--- NOTE | 2018-09-04 15:30 | General Surgery Progress Note ---
General Surgery-Progress Note Subjective Additional Comments 68 year old male well known to me from prior visits presented with leukocytosis and abnormal labs. Admitted for medical care and management. seen by vascular surgery given tunneled catheter. surgery called to evaluate wounds present on admission and assist with care. patient seen, chart reviewed, patient examined. on IV abx. went to OR today with vascular for removal of catheter and fistulogram with intervention. Objective Last 24 Hour Vital Signs Date Time Temp Pulse Resp B/P (MAP) Pulse Ox O2 Delivery O2 Flow Rate FiO2 09/04/18 13:15 97.4 88 23 116/73 100 Simple Mask 8 09/04/18 13:05 87 24 112/63 100 Simple Mask 8 09/04/18 12:55 87 25 109/69 100 Simple Mask 8 09/04/18 12:50 86 22 111/73 100 Simple Mask 8 09/04/18 12:43 97.6 87 24 115/73 100 Simple Mask 8 09/04/18 09:00 T-piece 8.0 09/04/18 08:35 97 20 98 T-Piece 8.0 30 09/04/18 08:35 98 T-Piece 8.0 30 09/04/18 08:00 97.3 79 20 98/69 (79) 99 09/04/18 04:00 97.9 87 19 102/65 (77) 98 09/04/18 00:00 97.2 91 19 108/66 (80) 100 09/03/18 23:54 98 T-Piece 8.0 30 09/03/18 21:00 T-piece 8.0 09/03/18 20:00 98.2 88 20 96/61 (73) 99 09/03/18 19:53 87 22 98 T-Piece 8.0 30 09/03/18 19:52 98 T-Piece 8.0 30 09/03/18 16:08 97.9 79 17 108/60 (76) 100 I&O Intake and Output 09/03/18 09/04/18 18:59 06:59 Intake Total 45 ml 455 ml Output Total 200 ml Balance 45 ml 255 ml Intake Free Water 180 ml IV Total 55 ml Tube Feeding 45 ml 220 ml Output Urine Total 200 ml Dressing: saturated Wound: other Drains: other Cardiovascular: RSR Respiratory: decreased breath sounds Abdomen: soft, non-tender, non-distended Extremities: no tenderness, no cyanosis, other Laboratory Tests Test 09/03/18 21:00 09/04/18 06:00 Urine Color [place] Urine Appearance Turbid Urine pH 6 (4.5-8.0) Urine Specific [place] 1.010 (1.005-1.035) Urine Protein 4+ (NEGATIVE) H Urine Glucose (UA) Negative (NEGATIVE) Urine Ketones 1+ (NEGATIVE) H Urine Blood 5+ (NEGATIVE) H Urine Nitrite Positive (NEGATIVE) H Urine Bilirubin Negative (NEGATIVE) Urine Urobilinogen Normal MG/DL (0.0-1.0) Urine Leukocyte Esterase 3+ (NEGATIVE) H Urine RBC Tntc /HPF (0 - 0) H Urine WBC Tntc /HPF (0 - 0) H Urine Squamous Epithelial Cells Occasional /LPF Urine Bacteria Many /HPF (NONE) H White Blood Count 16.0 K/UL (4.8-10.8) H Red Blood Count 3.20 M/UL (4.70-6.10) L Hemoglobin 9.9 G/DL (14.2-18.0) L Hematocrit 30.2 % (42.0-52.0) L Mean Corpuscular Volume 94 FL (80-99) Mean Corpuscular Hemoglobin 30.9 PG (27.0-31.0) Mean Corpuscular Hemoglobin Concent 32.7 G/DL (32.0-36.0) Red Cell Distribution Width 20.7 % (11.6-14.8) H Platelet Count 406 K/UL (150-450) Mean Platelet Volume 7.0 FL (6.5-10.1) Neutrophils (%) (Auto) % (45.0-75.0) Lymphocytes (%) (Auto) % (20.0-45.0) Monocytes (%) (Auto) % (1.0-10.0) Eosinophils (%) (Auto) % (0.0-3.0) Basophils (%) (Auto) % (0.0-2.0) Differential Total Cells Counted 100 Neutrophils % (Manual) 66 % (45-75) Lymphocytes % (Manual) 22 % (20-45) Monocytes % (Manual) 9 % (1-10) Eosinophils % (Manual) 3 % (0-3) Basophils % (Manual) 0 % (0-2) Band Neutrophils 0 % (0-8) Platelet Estimate Adequate Platelet Morphology Normal Polychromasia 2+ Hypochromasia 1+ Anisocytosis 2+ Sodium Level 137 MMOL/L (136-145) Potassium Level 4.4 MMOL/L (3.5-5.1) Chloride Level 98 MMOL/L (98-107) Carbon Dioxide Level 24 MMOL/L (21-32) Anion Gap 15 mmol/L (5-15) Blood Urea Nitrogen 80 mg/dL (7-18) H Creatinine 6.6 MG/DL (0.55-1.30) H Estimat Glomerular Filtration Rate 8.4 mL/min (>60) Glucose Level 119 MG/DL (74-106) H Uric Acid 9.5 MG/DL (2.6-7.2) H Calcium Level 10.3 MG/DL (8.5-10.1) H Phosphorus Level 4.9 MG/DL (2.5-4.9) Magnesium Level 2.7 MG/DL (1.8-2.4) H Iron Level 33 ug/dL (50-175) L Total Iron Binding Capacity 194 ug/dL (250-450) L Percent Iron Saturation 17 % (15-50) Unsaturated Iron Binding 161 ug/dL (112-346) Ferritin 1631 NG/ML (8-388) H Total Bilirubin 0.6 MG/DL (0.2-1.0) Gamma Glutamyl Transpeptidase 57 U/L (5-85) Aspartate Amino Transf (AST/SGOT) 22 U/L (15-37) Alanine Aminotransferase (ALT/SGPT) 35 U/L (12-78) Alkaline Phosphatase 182 U/L (46-116) H Total Creatine Kinase 73 U/L (26-308) Troponin I 0.000 ng/mL (0.000-0.056) C-Reactive Protein, Quantitative 6.5 mg/dL (0.00-0.90) H Pro-B-Type Natriuretic Peptide 1535 pg/mL (0-125) H Total Protein 9.4 G/DL (6.4-8.2) H Albumin 3.3 G/DL (3.4-5.0) L Globulin 6.1 g/dL Albumin/Globulin Ratio 0.5 (1.0-2.7) L Triglycerides Level 281 MG/DL (30-150) H Cholesterol Level 102 MG/DL (< 200) LDL Cholesterol 51 mg/dL (<100) HDL Cholesterol 26 MG/DL (40-60) L Cholesterol/HDL Ratio 3.9 (3.3-4.4) Vitamin B12 Level 1153 PG/ML (193-986) H Folate 87.0 NG/ML (8.6-58.9) H Thyroid Stimulating Hormone (TSH) 3.136 uiU/mL (0.358-3.740) Random Gentamicin Level 7.1 ug/mL Random Vancomycin Level 25.4 ug/mL Plan Problems: (1) Fever (2) Anemia (3) Hyperglycemia (4) Aspiration pneumonia (5) Renal insufficiency (6) Encephalopathy (7) Pneumonia (8) Elevated troponin (9) Heel sore (10) History of CVA (cerebrovascular accident) (11) G-tube site cellulitis (12) Dehydration (13) Electrolyte imbalance (14) GI bleed (15) Dialysis patient (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 Base of wound with trace slough, surrounding erythema.Epithelial scarring from previous wounds noted periwound. Hyperpigmentation scarring noted to sacrum with area in midline that is slowly opening incontinence associated dermatitis with skin breakdown to perianal area and scrotal area. Non-blanchable erythema R heel with fluctuance. Dry scar noted centrally. L heel boggy-pink and blanchable. Skin dryness noted and Numerous scratch duckworth noted to L upper ext, abd and upper thighs. Tx.Plan: Cleanse R ischial wound with Saline. Apply Therahoney. Cover with Optifoam drsg. Change every 3 days and prn. Apply Cavilon To L ear daily. Apply Triad Paste to cleft of buttocks with each perineal care. Apply Cavilon Skin Barrier to both heels. Cover each heel with Optifoam drsg. Change every 7 days and prn. Reposition at least every 2hours or as tolerated. Off-load heels with pillow. (19) Fistula, arteriovenous, acquired (20) Diabetes (21) Sepsis Assessment & Plan: catheter removed by vascular on IV abx as per ID cont with current care will follow with recs thank you (22) UTI (urinary tract infection) (23) AV shunt malfunction (24) Leukocytosis (25) ESRD (end stage renal disease) on dialysis (26) Anemia in chronic kidney disease (CKD) Skyler Salmon Sep 04, 2018 15:29
--- NOTE | 2018-09-04 15:55 | Diagnostic Imaging Report ---
INDICATION: Pain, intraoperative TECHNIQUE: Intraoperative imaging Fluoroscopy time: 136.9 seconds Total dose: 0.49219 mGym2 Total number of images: 12 COMPARISON: None FINDINGS: Intraoperative images taken during left upper extremity fistulogram procedure by Dr. Good. Please refer to his operative report for findings IMPRESSION: Intraoperative imaging, as described
--- NOTE | 2018-09-04 18:18 | Infectious Diseases Prog Note ---
Assessment/Plan Problems: (1) Sepsis Assessment & Plan: with leukocytosis , source ? HD catheter ? continue meropenem and vancomycin empirically pending cultures, had his HD catheter removed , since old and has not been used (2) AV shunt malfunction Assessment & Plan: had surgical revision today by vascular surgery, and HD catheter removal, vascular is following (3) Diabetes Assessment & Plan: recommend tight glycemic control to keep blood glucose between 100-140 (4) Leukocytosis Assessment & Plan: could be due to old HD catheter with infection VS Pneumonia VS CAUTI , continue meropenem and vancomycin empirically pending cultures Subjective ROS Limited/Unobtainable: Yes Allergies: Coded Allergies: No Known Allergies (Unverified , 04/14/16) Subjective He was resting in bed comfortable, had revision of his left arm fistula , and his old HD catheter was removed , a little drowsy today but alert Objective Vital Signs Last 24 Hour Vital Signs Date Time Temp Pulse Resp B/P (MAP) Pulse Ox O2 Delivery O2 Flow Rate FiO2 09/04/18 16:00 98.2 91 20 100/61 (74) 100 09/04/18 13:15 97.4 88 23 116/73 100 Simple Mask 8 09/04/18 13:05 87 24 112/63 100 Simple Mask 8 09/04/18 12:55 87 25 109/69 100 Simple Mask 8 09/04/18 12:50 86 22 111/73 100 Simple Mask 8 09/04/18 12:43 97.6 87 24 115/73 100 Simple Mask 8 09/04/18 09:00 T-piece 8.0 09/04/18 08:35 97 20 98 T-Piece 8.0 30 09/04/18 08:35 98 T-Piece 8.0 30 09/04/18 08:00 97.3 79 20 98/69 (79) 99 09/04/18 04:00 97.9 87 19 102/65 (77) 98 09/04/18 00:00 97.2 91 19 108/66 (80) 100 09/03/18 23:54 98 T-Piece 8.0 30 09/03/18 21:00 T-piece 8.0 09/03/18 20:00 98.2 88 20 96/61 (73) 99 09/03/18 19:53 87 22 98 T-Piece 8.0 30 09/03/18 19:52 98 T-Piece 8.0 30 Height (Feet): 5 Height (Inches): 5.00 Weight (Pounds): 150 General Appearance: no acute distress, cachetic HEENT: normocephalic, atraumatic, anicteric, mucous membranes moist, PERRL Respiratory/Chest: chest wall non-tender, normal breath sounds, no respiratory distress, no accessory muscle use, decreased breath sounds Cardiovascular: normal peripheral pulses, normal rate, regular rhythm, no gallop/murmur, no JVD Abdomen: normal bowel sounds, soft, non tender, no organomegaly, non distended , no mass, no scars Genitourinary: normal external genitalia Extremities: no cyanosis, no clubbing Skin: no rash, no lesions, no ulcers Neurologic/Psychiatric: alert Lymphatic: no neck adenopathy, no groin adenopathy Musculoskeletal: normal muscle bulk, no effusion Microbiology Date/Time Source Procedure Growth Status 09/02/18 18:15 Nasal Nares MRSA Culture - Final NO METHICILLIN RESISTANT STAPH AUREUS... Complete 09/02/18 16:00 Sputum Induced Gram Stain - Final Resulted 09/02/18 16:00 Sputum Culture - Preliminary Gram Negative Colten Resulted 09/03/18 21:00 Indwelling Cath Urine Culture - Preliminary Resulted 09/02/18 18:15 Rectum VRE Culture - Final Enterococcus Faecium - Vre Complete Laboratory Tests Test 09/03/18 21:00 09/04/18 06:00 Urine Color [place] Urine Appearance Turbid Urine pH 6 (4.5-8.0) Urine Specific [place] 1.010 (1.005-1.035) Urine Protein 4+ (NEGATIVE) H Urine Glucose (UA) Negative (NEGATIVE) Urine Ketones 1+ (NEGATIVE) H Urine Blood 5+ (NEGATIVE) H Urine Nitrite Positive (NEGATIVE) H Urine Bilirubin Negative (NEGATIVE) Urine Urobilinogen Normal MG/DL (0.0-1.0) Urine Leukocyte Esterase 3+ (NEGATIVE) H Urine RBC Tntc /HPF (0 - 0) H Urine WBC Tntc /HPF (0 - 0) H Urine Squamous Epithelial Cells Occasional /LPF Urine Bacteria Many /HPF (NONE) H White Blood Count 16.0 K/UL (4.8-10.8) H Red Blood Count 3.20 M/UL (4.70-6.10) L Hemoglobin 9.9 G/DL (14.2-18.0) L Hematocrit 30.2 % (42.0-52.0) L Mean Corpuscular Volume 94 FL (80-99) Mean Corpuscular Hemoglobin 30.9 PG (27.0-31.0) Mean Corpuscular Hemoglobin Concent 32.7 G/DL (32.0-36.0) Red Cell Distribution Width 20.7 % (11.6-14.8) H Platelet Count 406 K/UL (150-450) Mean Platelet Volume 7.0 FL (6.5-10.1) Neutrophils (%) (Auto) % (45.0-75.0) Lymphocytes (%) (Auto) % (20.0-45.0) Monocytes (%) (Auto) % (1.0-10.0) Eosinophils (%) (Auto) % (0.0-3.0) Basophils (%) (Auto) % (0.0-2.0) Differential Total Cells Counted 100 Neutrophils % (Manual) 66 % (45-75) Lymphocytes % (Manual) 22 % (20-45) Monocytes % (Manual) 9 % (1-10) Eosinophils % (Manual) 3 % (0-3) Basophils % (Manual) 0 % (0-2) Band Neutrophils 0 % (0-8) Platelet Estimate Adequate Platelet Morphology Normal Polychromasia 2+ Hypochromasia 1+ Anisocytosis 2+ Sodium Level 137 MMOL/L (136-145) Potassium Level 4.4 MMOL/L (3.5-5.1) Chloride Level 98 MMOL/L (98-107) Carbon Dioxide Level 24 MMOL/L (21-32) Anion Gap 15 mmol/L (5-15) Blood Urea Nitrogen 80 mg/dL (7-18) H Creatinine 6.6 MG/DL (0.55-1.30) H Estimat Glomerular Filtration Rate 8.4 mL/min (>60) Glucose Level 119 MG/DL (74-106) H Uric Acid 9.5 MG/DL (2.6-7.2) H Calcium Level 10.3 MG/DL (8.5-10.1) H Phosphorus Level 4.9 MG/DL (2.5-4.9) Magnesium Level 2.7 MG/DL (1.8-2.4) H Iron Level 33 ug/dL (50-175) L Total Iron Binding Capacity 194 ug/dL (250-450) L Percent Iron Saturation 17 % (15-50) Unsaturated Iron Binding 161 ug/dL (112-346) Ferritin 1631 NG/ML (8-388) H Total Bilirubin 0.6 MG/DL (0.2-1.0) Gamma Glutamyl Transpeptidase 57 U/L (5-85) Aspartate Amino Transf (AST/SGOT) 22 U/L (15-37) Alanine Aminotransferase (ALT/SGPT) 35 U/L (12-78) Alkaline Phosphatase 182 U/L (46-116) H Total Creatine Kinase 73 U/L (26-308) Troponin I 0.000 ng/mL (0.000-0.056) C-Reactive Protein, Quantitative 6.5 mg/dL (0.00-0.90) H Pro-B-Type Natriuretic Peptide 1535 pg/mL (0-125) H Total Protein 9.4 G/DL (6.4-8.2) H Albumin 3.3 G/DL (3.4-5.0) L Globulin 6.1 g/dL Albumin/Globulin Ratio 0.5 (1.0-2.7) L Triglycerides Level 281 MG/DL (30-150) H Cholesterol Level 102 MG/DL (< 200) LDL Cholesterol 51 mg/dL (<100) HDL Cholesterol 26 MG/DL (40-60) L Cholesterol/HDL Ratio 3.9 (3.3-4.4) Vitamin B12 Level 1153 PG/ML (193-986) H Folate 87.0 NG/ML (8.6-58.9) H Thyroid Stimulating Hormone (TSH) 3.136 uiU/mL (0.358-3.740) Random Gentamicin Level 7.1 ug/mL Random Vancomycin Level 25.4 ug/mL Current Medications Medications (Trade) Dose Ordered Sig/Xochilt Route PRN Reason Start Time Stop Time Status Last Admin Dose Admin Acetaminophen (Tylenol) 650 mg DAILYPRN PRN GT prior to wound treatment 09/02/18 20:45 10/02/18 20:44 Acetaminophen (Tylenol) 650 mg Q6H PRN GT Mild Pain/Temp > 100.0 09/02/18 20:45 10/02/18 20:44 Atorvastatin Calcium (Lipitor) 40 mg BEDTIME GT 09/02/18 21:00 10/02/18 20:59 09/03/18 20:57 Bisacodyl (Dulcolax) 10 mg DAILYPRN PRN RECTAL Constipation 09/02/18 20:45 10/02/18 20:44 Dextrose (Dextrose 50%) 25 ml Q30M PRN IV Hypoglycemia 09/02/18 20:45 10/02/18 20:44 Dextrose (Dextrose 50%) 50 ml Q30M PRN IV Hypoglycemia 09/02/18 20:45 10/02/18 20:44 Famotidine (Pepcid) 20 mg DAILY GT 09/03/18 09:00 10/03/18 08:59 09/04/18 08:41 Fentanyl Citrate (Sublimaze 100 mcg/2 mL) 25 mcg Q10M PRN IV Moderate Pain (Pain Scale 4-6) 09/04/18 12:15 09/04/18 20:00 Heparin Sodium (Porcine) (Heparin 5000 units/ml) 5,000 units EVERY 12 HOURS SUBQ 09/03/18 21:00 10/03/18 20:59 Insulin Aspart (NovoLOG) Q6HR SUBQ 09/03/18 00:00 10/02/18 20:59 09/04/18 17:37 Lactulose (Cephulac) 20 gm DAILYPRN PRN ORAL constipation 09/02/18 20:45 10/02/18 20:44 Meropenem 500 mg/ Sodium Chloride 55 ml @ 110 mls/hr Q24H IVPB 09/03/18 21:00 09/08/18 20:59 09/03/18 20:58 Midodrine (Pro-Amatine) 10 mg THREE TIMES A DAY ORAL 09/02/18 20:45 10/02/18 20:44 09/04/18 17:05 Ondansetron HCl (Zofran) 4 mg Q1H PRN IVP Nausea & Vomiting 09/04/18 12:15 09/04/18 20:00 Sodium Phosphate (Fleet's Sodium Phosl Enema) 133 ml DAILYPRN PRN RECTAL constipation 09/02/18 20:45 10/02/18 20:44 Vancomycin HCl (Vanco rx to dose) 1 ea DAILY PRN MISC Per rx protocol 09/03/18 14:30 10/03/18 14:29 Vitamin B Complex/ Vit C/Folic Acid (Nephrovite) 1 tab DAILY ORAL 09/03/18 09:00 10/03/18 08:59 09/04/18 08:41 Devika Gaitan M.D. Sep 04, 2018 18:18
--- NOTE | 2018-09-04 19:45 | NUR ---
HAND-OFF: Report given to Zaida RN.
--- NOTE | 2018-09-04 19:50 | NUR ---
NURSE NOTES: RECEIVED PT FROM AMBROSE SAMSON. PT IS AWAKE, AAOX0, FLAT AFFECT, NON-VERBAL. NO ACUTE DISTRESS NOTED. PT HAS A TRACH AND T-PIECE ON 8L NOTED, INTACT AND SUCTION WELL. DRESSING ON LEFT ARM AV SHUNT IS INTACT AND DRY. G-TUBE FEEDING NOTED, NO RESIDUAL. AUSCULTATED PLACEMENT AND FLUSHED. G-TUBE FEEDING RUNNING NEPHRO AT 40CC/HR, PT TOLERATE FEEDING WELL. CASTILLO IS INTACT AND DRAINING WELL. CASTILLO ANCHOR IN PLACE. URINE YELLOW AND CLOUDY. CLEAR AND WHITE THIN DISCHARGE NOTED ON PENIS. DRESSINGS ON SACRAL, BILATERAL HEELS, AND R EAR ARE INTACT. BED IS LOCKED AT THE LOWEST POSITION, BED ALARMS ACTIVE, SIDE RAILS UP X2, AND CALL LIGHT IS WITHIN REACH. WILL CONTINUE TO MONITOR.
--- NOTE | 2018-09-04 20:45 | NUR ---
NURSE NOTES: CHARGE NURSE FOLLOWED UP ON PT'S DIALYSIS APPOINTMENT. SPOKE TO NANCY AND CONFIRMED APPOINTMENT
[2018-09-04] MEDS: Meropenem 500 MG in NS 55 ML IVPB SCH (21:23)
[2018-09-04] MEDS: Atorvastatin 20mg tab GT SCH (21:23)
[2018-09-05] VITALS: BP 113/69
--- NOTE | 2018-09-05 | NUR ---
NURSE NOTES: PT IS GETTING DIALYSIS BY AMBROSE MONREAL FROM [facility].
[2018-09-05] MEDS: NovoLOG Insulin Flexpen SUBQ SCH ×5 (00:14→20:49)
[2018-09-05 04:00] VITALS: BP 103/63
[2018-09-05 07:26] LABS: BASOPHILS % (AUTO) 1.5 % (0.0-2.0); EOSINOPHILS % (AUTO) 6.1 % (0.0-3.0); HEMATOCRIT 29.8 % (42.0-52.0); HEMOGLOBIN 9.8 G/DL (14.2-18.0); LYMPHOCYTES % (AUTO) 19.4 % (20.0-45.0); MEAN CORPUSCULAR VOLUME 95 FL (80-99); MONOCYTES % (AUTO) 9.8 % (1.0-10.0); NEUTROPHILS % (AUTO) 63.2 % (45.0-75.0); PLATELET COUNT 413 K/UL (150-450); RED BLOOD COUNT 3.13 M/UL (4.70-6.10); RED CELL DISTRIBUTION WIDTH 20.8 % (11.6-14.8); WHITE BLOOD COUNT 11.5 K/UL (4.8-10.8)
[2018-09-05 07:56] LABS: ALANINE AMINOTRANSFERASE 26 U/L (12-78); ALBUMIN 3.2 G/DL (3.4-5.0); ALBUMIN/GLOBULIN RATIO 0.5 (1.0-2.7); ALKALINE PHOSPHATASE 185 U/L (46-116); ANION GAP 12 mmol/L (5-15); ASPARTATE AMINO TRANSFERASE 25 U/L (15-37); BILIRUBIN,TOTAL 0.5 MG/DL (0.2-1.0); BLOOD UREA NITROGEN 33 mg/dL (7-18); CALCIUM 9.5 MG/DL (8.5-10.1); CARBON DIOXIDE 30 MMOL/L (21-32); CHLORIDE 100 MMOL/L (98-107); CREATININE 3.7 MG/DL (0.55-1.30); POTASSIUM 2.9 MMOL/L (3.5-5.1); SODIUM 142 MMOL/L (136-145)
[2018-09-05 08:00] VITALS: BP 93/60
--- NOTE | 2018-09-05 08:00 | NUR ---
HAND-OFF: Report given to AMBROSE SAWYER and AMBROSE OCHOA.
[2018-09-05 08:05] LABS: PHOSPHORUS 3.1 MG/DL (2.5-4.9)
--- NOTE | 2018-09-05 08:05 | NUR ---
NURSE NOTES: Received patient in bed, opens his eyes spontaneously. No s/s of pain or discomfort per FLACC pain scale. GT intact, HOB elevated. Trach in place. Suction done. Zimmerman intact, draining, oliguria. Patient is dialysis patient. AV shunt on left upper arm with (+)bruit and thrill. Wound dressing intact, on P200 mattress. IV intact, no s/s of infiltration. Will continue plan of care.
--- NOTE | 2018-09-05 08:27 | NUR ---
NURSE NOTES: RELAYED TO DR LEGGETT (LEFT MSG ) RE 1/4 BOTTLE GRAM + COCCI IN CLUSTERS, AWAITING RESPONSE.
--- NOTE | 2018-09-05 09:00 | NUR ---
NURSE NOTES: Dr. Gaitan is aware of blood culture result.
--- NOTE | 2018-09-05 09:05 | Immediate Post-Op Evaluation ---
Immediate Post-Op Evalulation Immediate Post-Op Evalulation Procedure: L arm A-V fistula revision baloon angioplasty, removal of dialysis catheter Date of Evaluation: Sep 04, 2018 Time of Evaluation: 12:15 IV Fluids: 200 Blood Products: none Estimated Blood Loss: <50 Urinary Output: 100 Blood Pressure Systolic: 104 Blood Pressure Diastolic: 68 Pulse Rate: 62 Respiratory Rate: 20 O2 Sat by Pulse Oximetry: 98 Temperature (Fahrenheit): 97.5 Nausea: No Vomiting: No Complications none Patient Status: reacts, patent, none Hydration Status: adequate Shon Brar MD Sep 05, 2018 09:05
--- NOTE | 2018-09-05 09:06 | 48 Hour Post Anesthesia Eval ---
Post Anesthesia Evaluation Procedure: L arm A-V fistula revision baloon angioplasty, removal of dialysis catheter Date of Evaluation: Sep 05, 2018 Time of Evaluation: 09:05 Blood Pressure Systolic: 96 0: 52 Pulse Rate: 71 Respiratory Rate: 22 Temperature (Fahrenheit): 97.3 O2 Sat by Pulse Oximetry: 97 Airway: patent Nausea: No Vomiting: No Pain Intensity: 1 Hydration Status: adequate Cardiopulmonary Status: stable Mental Status/LOC: patient returned to baseline Follow-up Care/Observations: n/a Post-Anesthesia Complications: none Follow-up care needed: N/A Shon Brar MD Sep 05, 2018 09:06
[2018-09-05] MEDS: Heparin 5000 units/ml inj SUBQ SCH (10:06)
[2018-09-05] MEDS: Nephrovite tab (Rena-Vite) ORAL SCH (10:06)
[2018-09-05] MEDS: Midodrine 10mg tab ORAL SCH ×3 (10:06→17:54)
--- NOTE | 2018-09-05 10:09 | NUR ---
NURSE NOTES: Potassium 40MEQ was given due to potassium of 2.9. The med was ordered by Dr. Burton.
--- NOTE | 2018-09-05 11:23 | Nephrology Progress Note ---
Assessment/Plan Problem List: (1) ESRD (end stage renal disease) on dialysis (2) Sepsis (3) Anemia in chronic kidney disease (CKD) Assessment Sepsis: Source Permacath and or Lung ESRD Severe Anemia Plan Remove permacath, per Vasc surg done K supplement DC Zimmerman antibiotics: One gram Vanco and 120 mg Genta after BCs- further AbRx per ID vascular procedure 48 hours after negative BC results monitor WBCs HD via current functional fistula as needed- ordered 09/04 next 05/10 CXR noted BC results pending per orders suction frequently Subjective ROS Limited/Unobtainable: Yes Objective Objective Last 24 Hour Vital Signs Date Time Temp Pulse Resp B/P (MAP) Pulse Ox O2 Delivery O2 Flow Rate FiO2 09/05/18 09:06 71 22 97 09/05/18 09:05 62 20 98 09/05/18 09:00 T-piece 8.0 09/05/18 08:03 100 T-Piece 8.0 30 09/05/18 08:03 94 20 100 T-Piece 8.0 30 09/05/18 08:00 99.4 97 20 93/60 (71) 100 09/05/18 04:00 97.5 101 16 103/63 (76) 100 09/05/18 01:38 100 T-Piece 8.0 30 09/05/18 00:00 97.1 93 17 113/69 (84) 100 09/04/18 21:00 T-piece 8.0 09/04/18 20:00 97.4 97 17 117/70 (86) 100 09/04/18 19:59 99 18 98 T-Piece 8.0 30 09/04/18 19:58 98 T-Piece 8.0 30 09/04/18 16:00 98.2 91 20 100/61 (74) 100 09/04/18 13:15 97.4 88 23 116/73 100 Simple Mask 8 09/04/18 13:05 87 24 112/63 100 Simple Mask 8 09/04/18 12:55 87 25 109/69 100 Simple Mask 8 09/04/18 12:50 86 22 111/73 100 Simple Mask 8 09/04/18 12:43 97.6 87 24 115/73 100 Simple Mask 8 Intake and Output 09/04/18 09/05/18 19:00 07:00 Intake Total 250 ml 160 ml Output Total 550 ml 650 ml Balance -300 ml -490 ml Intake Free Water 0 ml IV Total 250 ml 160 ml Tube Feeding 0 ml Output Urine Total 500 ml 600 ml Estimated Blood Loss 50 ml 50 ml # Bowel Movements 1 Laboratory Tests 09/05/18 04:45: White Blood Count 11.5H, Red Blood Count 3.13L, Hemoglobin 9.8L, Hematocrit 29.8L, Mean Corpuscular Volume 95, Mean Corpuscular Hemoglobin 31.3H, Mean Corpuscular Hemoglobin Concent 32.9, Red Cell Distribution Width 20.8H, Platelet Count 413, Mean Platelet Volume 6.6, Neutrophils (%) (Auto) 63.2, Lymphocytes (%) (Auto) 19.4L, Monocytes (%) (Auto) 9.8, Eosinophils (%) (Auto) 6.1H, Basophils (%) (Auto) 1.5, Sodium Level 142, Potassium Level 2.9L, Chloride Level 100, Carbon Dioxide Level 30, Anion Gap 12, Blood Urea Nitrogen 33H, Creatinine 3.7H, Estimat Glomerular Filtration Rate 16.4, Glucose Level 145H, Calcium Level 9.5, Phosphorus Level 3.1, Magnesium Level 2.2, Total Bilirubin 0.5, Aspartate Amino Transf (AST/SGOT) 25, Alanine Aminotransferase ( ALT/SGPT) 26, Alkaline Phosphatase 185H, C-Reactive Protein, Quantitative 6.3H, Total Protein 9.3H, Albumin 3.2L, Globulin 6.1, Albumin/Globulin Ratio 0.5L, Random Vancomycin Level 17.2, Hepatitis B Surface Antigen [Pending] Height (Feet): 5 Height (Inches): 5.00 Weight (Pounds): 126 General Appearance: no apparent distress Cardiovascular: tachycardia Respiratory/Chest: decreased breath sounds Abdomen: soft Evgeny Burton MD Sep 05, 2018 11:23
[2018-09-05 12:00] VITALS: BP 111/72
--- NOTE | 2018-09-05 13:42 | Infectious Diseases Prog Note ---
Assessment/Plan Problems: (1) Sepsis Assessment & Plan: with leukocytosis , source ? HD catheter ? continue meropenem and vancomycin empirically pending cultures, had his HD catheter removed , since old and has not been used (2) AV shunt malfunction Assessment & Plan: had surgical revision today by vascular surgery, and HD catheter removal, vascular is following (3) Diabetes Assessment & Plan: recommend tight glycemic control to keep blood glucose between 100-140 (4) Leukocytosis Assessment & Plan: could be due to old HD catheter with infection VS Pneumonia VS CAUTI , continue meropenem and vancomycin empirically pending cultures Subjective ROS Limited/Unobtainable: Yes Allergies: Coded Allergies: No Known Allergies (Unverified , 04/14/16) Subjective He was resting in bed comfortable, had revision of his left arm fistula, and his old HD catheter was removed , more alert Objective Vital Signs Last 24 Hour Vital Signs Date Time Temp Pulse Resp B/P (MAP) Pulse Ox O2 Delivery O2 Flow Rate FiO2 09/05/18 13:15 98 T-Piece 8.0 30 09/05/18 09:06 71 22 97 09/05/18 09:05 62 20 98 09/05/18 09:00 T-piece 8.0 09/05/18 08:03 100 T-Piece 8.0 30 09/05/18 08:03 94 20 100 T-Piece 8.0 30 09/05/18 08:00 99.4 97 20 93/60 (71) 100 09/05/18 04:00 97.5 101 16 103/63 (76) 100 09/05/18 01:38 100 T-Piece 8.0 30 09/05/18 00:00 97.1 93 17 113/69 (84) 100 09/04/18 21:00 T-piece 8.0 09/04/18 20:00 97.4 97 17 117/70 (86) 100 09/04/18 19:59 99 18 98 T-Piece 8.0 30 09/04/18 19:58 98 T-Piece 8.0 30 09/04/18 16:00 98.2 91 20 100/61 (74) 100 Height (Feet): 5 Height (Inches): 5.00 Weight (Pounds): 126 General Appearance: WD/WN, no acute distress HEENT: normocephalic, atraumatic, anicteric, mucous membranes moist, PERRL, EOMI, pharynx normal, supple, no JVD Respiratory/Chest: chest wall non-tender, lungs clear, normal breath sounds, no respiratory distress, no accessory muscle use Cardiovascular: normal peripheral pulses, normal rate, regular rhythm, no gallop/murmur, no JVD Abdomen: normal bowel sounds, soft, non tender, no organomegaly, non distended , no mass, no scars Extremities: no cyanosis, no clubbing Skin: no rash, no lesions, no ulcers Neurologic/Psychiatric: alert Lymphatic: no neck adenopathy, no groin adenopathy Musculoskeletal: normal muscle bulk Microbiology Date/Time Source Procedure Growth Status 09/04/18 06:00 Blood Blood Culture - Preliminary Resulted 09/03/18 12:45 Blood Blood Culture - Preliminary NO GROWTH AFTER 24 HOURS Resulted 09/02/18 18:15 Nasal Nares MRSA Culture - Final NO METHICILLIN RESISTANT STAPH AUREUS... Complete 09/02/18 16:00 Sputum Induced Gram Stain - Final Resulted 09/02/18 16:00 Sputum Culture - Preliminary Gram Negative Bacillus 1 Gram Negative Bacillus 2 Usual Respiratory Catrina Resulted 09/03/18 21:00 Indwelling Cath Urine Culture - Preliminary Gram Negative Colten Resulted 09/04/18 12:30 Catheter Site Catheter Tip Culture - Preliminary Resulted 09/02/18 18:15 Rectum VRE Culture - Final Enterococcus Faecium - Vre Complete Laboratory Tests Test 09/05/18 04:45 White Blood Count 11.5 K/UL (4.8-10.8) H Red Blood Count 3.13 M/UL (4.70-6.10) L Hemoglobin 9.8 G/DL (14.2-18.0) L Hematocrit 29.8 % (42.0-52.0) L Mean Corpuscular Volume 95 FL (80-99) Mean Corpuscular Hemoglobin 31.3 PG (27.0-31.0) H Mean Corpuscular Hemoglobin Concent 32.9 G/DL (32.0-36.0) Red Cell Distribution Width 20.8 % (11.6-14.8) H Platelet Count 413 K/UL (150-450) Mean Platelet Volume 6.6 FL (6.5-10.1) Neutrophils (%) (Auto) 63.2 % (45.0-75.0) Lymphocytes (%) (Auto) 19.4 % (20.0-45.0) L Monocytes (%) (Auto) 9.8 % (1.0-10.0) Eosinophils (%) (Auto) 6.1 % (0.0-3.0) H Basophils (%) (Auto) 1.5 % (0.0-2.0) Sodium Level 142 MMOL/L (136-145) Potassium Level 2.9 MMOL/L (3.5-5.1) L Chloride Level 100 MMOL/L (98-107) Carbon Dioxide Level 30 MMOL/L (21-32) Anion Gap 12 mmol/L (5-15) Blood Urea Nitrogen 33 mg/dL (7-18) H Creatinine 3.7 MG/DL (0.55-1.30) H Estimat Glomerular Filtration Rate 16.4 mL/min (>60) Glucose Level 145 MG/DL (74-106) H Calcium Level 9.5 MG/DL (8.5-10.1) Phosphorus Level 3.1 MG/DL (2.5-4.9) Magnesium Level 2.2 MG/DL (1.8-2.4) Total Bilirubin 0.5 MG/DL (0.2-1.0) Aspartate Amino Transf (AST/SGOT) 25 U/L (15-37) Alanine Aminotransferase (ALT/SGPT) 26 U/L (12-78) Alkaline Phosphatase 185 U/L (46-116) H C-Reactive Protein, Quantitative 6.3 mg/dL (0.00-0.90) H Total Protein 9.3 G/DL (6.4-8.2) H Albumin 3.2 G/DL (3.4-5.0) L Globulin 6.1 g/dL Albumin/Globulin Ratio 0.5 (1.0-2.7) L Random Vancomycin Level 17.2 ug/mL Hepatitis B Surface Antigen Pending Current Medications Medications (Trade) Dose Ordered Sig/Xochilt Route PRN Reason Start Time Stop Time Status Last Admin Dose Admin Acetaminophen (Tylenol) 650 mg DAILYPRN PRN GT prior to wound treatment 09/02/18 20:45 10/02/18 20:44 Acetaminophen (Tylenol) 650 mg Q6H PRN GT Mild Pain/Temp > 100.0 09/02/18 20:45 10/02/18 20:44 Atorvastatin Calcium (Lipitor) 40 mg BEDTIME GT 09/02/18 21:00 10/02/18 20:59 09/04/18 21:23 Bisacodyl (Dulcolax) 10 mg DAILYPRN PRN RECTAL Constipation 09/02/18 20:45 10/02/18 20:44 Dextrose (Dextrose 50%) 25 ml Q30M PRN IV Hypoglycemia 09/02/18 20:45 10/02/18 20:44 Dextrose (Dextrose 50%) 50 ml Q30M PRN IV Hypoglycemia 09/02/18 20:45 10/02/18 20:44 Famotidine (Pepcid) 20 mg DAILY GT 09/03/18 09:00 10/03/18 08:59 09/05/18 10:05 Heparin Sodium (Porcine) (Heparin 5000 units/ml) 5,000 units EVERY 12 HOURS SUBQ 09/03/18 21:00 10/03/18 20:59 09/05/18 10:06 Insulin Aspart (NovoLOG) Q6HR SUBQ 09/03/18 00:00 10/02/18 20:59 09/05/18 13:00 Lactulose (Cephulac) 20 gm DAILYPRN PRN ORAL constipation 09/02/18 20:45 10/02/18 20:44 Meropenem 500 mg/ Sodium Chloride 55 ml @ 110 mls/hr Q24H IVPB 09/03/18 21:00 09/08/18 20:59 09/04/18 21:23 Midodrine (Pro-Amatine) 10 mg THREE TIMES A DAY ORAL 09/02/18 20:45 10/02/18 20:44 09/05/18 13:03 Sodium Phosphate (Fleet's Sodium Phosl Enema) 133 ml DAILYPRN PRN RECTAL constipation 09/02/18 20:45 10/02/18 20:44 Vancomycin HCl (Vanco rx to dose) 1 ea DAILY PRN MISC Per rx protocol 09/03/18 14:30 10/03/18 14:29 Vitamin B Complex/ Vit C/Folic Acid (Nephrovite) 1 tab DAILY ORAL 09/03/18 09:00 10/03/18 08:59 09/05/18 10:06 Devika Gaitan M.D. 22, 2019 13:42
--- NOTE | 2018-09-05 13:57 | Consultation ---
History of Present Illness General Date patient seen: Sep 04, 2018 Chief Complaint: General Complaint Present Illness Allergies: Coded Allergies: No Known Allergies (Unverified , 04/14/16) Medication History Scheduled Aspirin* (Aspirin*), 81 MG GT DAILY, (Reported) Atorvastatin Calcium* (Atorvastatin Calcium*), 40 MG GT BEDTIME, (Reported) Famotidine (Famotidine), 20 MG GT DAILY, (Reported) Insulin Aspart (Novolog), 100 UNIT SQ Q6HR, (Reported) Insulin Lispro (Humalog), Unknown Dose SUBQ Q6HR, (Reported) Meropenem (Meropenem), 500 MG IV DAILY Metoclopramide Hcl* (Metoclopramide Hcl*), 10 MG GT NEEDED, (Reported) Midodrine* (Proamatine*), 2.5 MG GT TWICE A DAY, (Reported) Sevelamer Carbonate* (Renvela*), 1,600 MG GT THREE TIMES A DAY, (Reported) Vancomycin Hcl/D5w (Vancomycin Hcl 1G/200 Ml Bag), 1 GM IV DAILY, (Reported) Vitamin B Cmplx/Vit C/Folic AC (Nephro-Micah Tablet), 1 TAB GT DAILY, (Reported) Zinc Sulfate (Zinc Sulfate), 220 MG GT DAILY, (Reported) Scheduled PRN Acetaminophen (Acetaminophen), 650 MG GT Q6HR PRN for Mild Pain (Pain Scale 1-3) , (Reported) Acetaminophen* (Acetaminophen 325MG Tablet*), 650 MG ORAL Q6HR PRN for Mild Pain /Temp > 100.5, (Reported) Bisacodyl* (Dulcolax*), 10 MG RECTAL DAILY PRN for Constipation, (Reported) Insulin Regular, Human (Humulin R), 20 UNITS SUBQ Q12HR PRN for Sliding Scale, ( Reported) Ondansetron* (Zofran*), 4 MG IV Q6H PRN for Nausea & Vomiting, (Reported) Patient History Healthcare decision maker N Resuscitation status Advanced Directive on File Physical Exam Last 24 Hour Vital Signs Date Time Temp Pulse Resp B/P (MAP) Pulse Ox O2 Delivery O2 Flow Rate FiO2 09/05/18 13:15 98 T-Piece 8.0 30 09/05/18 09:06 71 22 97 09/05/18 09:05 62 20 98 09/05/18 09:00 T-piece 8.0 09/05/18 08:03 100 T-Piece 8.0 30 09/05/18 08:03 94 20 100 T-Piece 8.0 30 09/05/18 08:00 99.4 97 20 93/60 (71) 100 09/05/18 04:00 97.5 101 16 103/63 (76) 100 09/05/18 01:38 100 T-Piece 8.0 30 09/05/18 00:00 97.1 93 17 113/69 (84) 100 09/04/18 21:00 T-piece 8.0 09/04/18 20:00 97.4 97 17 117/70 (86) 100 09/04/18 19:59 99 18 98 T-Piece 8.0 30 09/04/18 19:58 98 T-Piece 8.0 30 09/04/18 16:00 98.2 91 20 100/61 (74) 100 Intake and Output 09/04/18 09/05/18 19:00 07:00 Intake Total 250 ml 160 ml Output Total 550 ml 650 ml Balance -300 ml -490 ml Intake Free Water 0 ml IV Total 250 ml 160 ml Tube Feeding 0 ml Output Urine Total 500 ml 600 ml Estimated Blood Loss 50 ml 50 ml # Bowel Movements 1 Laboratory Tests Test 09/05/18 04:45 White Blood Count 11.5 K/UL (4.8-10.8) H Red Blood Count 3.13 M/UL (4.70-6.10) L Hemoglobin 9.8 G/DL (14.2-18.0) L Hematocrit 29.8 % (42.0-52.0) L Mean Corpuscular Volume 95 FL (80-99) Mean Corpuscular Hemoglobin 31.3 PG (27.0-31.0) H Mean Corpuscular Hemoglobin Concent 32.9 G/DL (32.0-36.0) Red Cell Distribution Width 20.8 % (11.6-14.8) H Platelet Count 413 K/UL (150-450) Mean Platelet Volume 6.6 FL (6.5-10.1) Neutrophils (%) (Auto) 63.2 % (45.0-75.0) Lymphocytes (%) (Auto) 19.4 % (20.0-45.0) L Monocytes (%) (Auto) 9.8 % (1.0-10.0) Eosinophils (%) (Auto) 6.1 % (0.0-3.0) H Basophils (%) (Auto) 1.5 % (0.0-2.0) Sodium Level 142 MMOL/L (136-145) Potassium Level 2.9 MMOL/L (3.5-5.1) L Chloride Level 100 MMOL/L (98-107) Carbon Dioxide Level 30 MMOL/L (21-32) Anion Gap 12 mmol/L (5-15) Blood Urea Nitrogen 33 mg/dL (7-18) H Creatinine 3.7 MG/DL (0.55-1.30) H Estimat Glomerular Filtration Rate 16.4 mL/min (>60) Glucose Level 145 MG/DL (74-106) H Calcium Level 9.5 MG/DL (8.5-10.1) Phosphorus Level 3.1 MG/DL (2.5-4.9) Magnesium Level 2.2 MG/DL (1.8-2.4) Total Bilirubin 0.5 MG/DL (0.2-1.0) Aspartate Amino Transf (AST/SGOT) 25 U/L (15-37) Alanine Aminotransferase (ALT/SGPT) 26 U/L (12-78) Alkaline Phosphatase 185 U/L (46-116) H C-Reactive Protein, Quantitative 6.3 mg/dL (0.00-0.90) H Total Protein 9.3 G/DL (6.4-8.2) H Albumin 3.2 G/DL (3.4-5.0) L Globulin 6.1 g/dL Albumin/Globulin Ratio 0.5 (1.0-2.7) L Random Vancomycin Level 17.2 ug/mL Hepatitis B Surface Antigen Pending Height (Feet): 5 Height (Inches): 5.00 Weight (Pounds): 126 Medications Current Medications Medications (Trade) Dose Ordered Sig/Xochilt Route PRN Reason Start Time Stop Time Status Last Admin Dose Admin Acetaminophen (Tylenol) 650 mg DAILYPRN PRN GT prior to wound treatment 09/02/18 20:45 10/02/18 20:44 Acetaminophen (Tylenol) 650 mg Q6H PRN GT Mild Pain/Temp > 100.0 09/02/18 20:45 10/02/18 20:44 Atorvastatin Calcium (Lipitor) 40 mg BEDTIME GT 09/02/18 21:00 10/02/18 20:59 09/04/18 21:23 Bisacodyl (Dulcolax) 10 mg DAILYPRN PRN RECTAL Constipation 09/02/18 20:45 10/02/18 20:44 Dextrose (Dextrose 50%) 25 ml Q30M PRN IV Hypoglycemia 09/02/18 20:45 10/02/18 20:44 Dextrose (Dextrose 50%) 50 ml Q30M PRN IV Hypoglycemia 09/02/18 20:45 10/02/18 20:44 Famotidine (Pepcid) 20 mg DAILY GT 09/03/18 09:00 10/03/18 08:59 09/05/18 10:05 Heparin Sodium (Porcine) (Heparin 5000 units/ml) 5,000 units EVERY 12 HOURS SUBQ 09/03/18 21:00 10/03/18 20:59 09/05/18 10:06 Insulin Aspart (NovoLOG) Q6HR SUBQ 09/03/18 00:00 10/02/18 20:59 09/05/18 13:00 Lactulose (Cephulac) 20 gm DAILYPRN PRN ORAL constipation 09/02/18 20:45 10/02/18 20:44 Meropenem 500 mg/ Sodium Chloride 55 ml @ 110 mls/hr Q24H IVPB 09/03/18 21:00 09/08/18 20:59 09/04/18 21:23 Midodrine (Pro-Amatine) 10 mg THREE TIMES A DAY ORAL 09/02/18 20:45 10/02/18 20:44 09/05/18 13:03 Sodium Phosphate (Fleet's Sodium Phosl Enema) 133 ml DAILYPRN PRN RECTAL constipation 09/02/18 20:45 10/02/18 20:44 Vancomycin HCl (Vanco rx to dose) 1 ea DAILY PRN MISC Per rx protocol 09/03/18 14:30 10/03/18 14:29 Vitamin B Complex/ Vit C/Folic Acid (Nephrovite) 1 tab DAILY ORAL 09/03/18 09:00 10/03/18 08:59 09/05/18 10:06 Assessment/Plan Assessment/Plan: HEME/ONC CONSULT DATE OF CONSULT: 09/04/2018 REFERRING MD: Hever Olivarez REASON FOR CONSULT: Leukocytosis, anemia, hyperproteinemia HISTORY OF PRESENT ILLNESS: The patient is a 68-year-old male with the history of respiratory failure, end-stage renal disease, on hemodialysis, and wounds, who presented for the exploration of the hemodialysis fistula. At the time of evaluation, the patient denies chest pain or shortness of breath. Patient is not verbally communicative. Review of cbc showed an elevated wbc at 16 and low hgb of 9.9. Heme/Onc services were consulted for the evaluation of leukocytosis. PAST MEDICAL HISTORY: CVA, end-stage renal disease, dysphagia, encephalopathy, and decubitus wounds. PAST SURGICAL HISTORY: Unknown FAMILY HISTORY: Noncontributory SOCIAL HISTORY: The patient is [facility] in a jail facility. No prior history of illicit drug abuse, smoking, or tobacco use could be found. Review of Symptoms General ROS: no weight loss or fever Psychological ROS: no depression or mood changes, no memory loss Ophthalmic ROS: no visual changes or eye irritation ENT ROS: no nasal congestion, hearing loss, dizziness Allergy and Immunology ROS: no allergic symptoms or urticaria Hematological and Lymphatic ROS: no swollen glands, unusual bleeding or bruising Endocrine ROS: no polyuria, polydipsia, weight changes, temperature intolerance Respiratory ROS: no cough, shortness of breath, or wheezing Cardiovascular ROS: no chest pain or dyspnea on exertion Gastrointestinal ROS: denies abdominal pain, bright red blood in stool. Musculoskeletal ROS: no myalgias or arthralgias Neurological ROS: no TIA or stroke symptoms Dermatological ROS: no new or changing skin lesions, rashes or pruritis Physical Exam GENERAL: NAD VITALS: Have been reviewed HEAD AND NECK: Trach in place , on T-bar , Atraumatic and normocephalic. CHEST: Diffuse bronchial breathing sounds. HEART: S1 and S2. Regular rate and rhythm. ABDOMEN: Soft. No organomegaly, NEUROLOGY: Awake, alert and oriented x1. MS: Left arm AVF-well dressed , diffuse atrophied musculature CURRENT HOSPITAL MEDICATIONS: insulin, aspirin, atorvastatin, and acetaminophen. LABS: wbc 16 hgb 9.9 plt 413k ferritin 1631 ASSESSMENT AND RECOMMENDATIONS # Leukocytosis/elevated white blood cell count, unspecified likely related to underlying stress reaction, smoking v more likely infection --> have reviewed peripheral smear and bandemia/neutrophilia noted --> continue antibiotics if they have been started by ID team --> monitor for resolution --> wbc trend: 16--> 11k # Anemia of chronic disease due to underlying chronic medical issues, multifactorial very likely due to CKD --> Anemia workup has been reviewed. Ferritin 1631 --> No evidence of hemolysis is noted, peripheral smear has been reviewed. --> Hgb goal >7. Transfuse prn. --> Epogen or iron at this time is not particularly indicated --> Medications have been reviewed --> low threshold for gi evaluation in case has occult + --> bone marrow biopsy is not indicated given the other more likely causes --> hgb trend: 9.9-->10 # Left sided AVF Malfuntion --> per vascular # Chronic encephalopathy. # End-stage renal disease. Nephro is following, appreciate recs. --> on hemodialysis. # Hypertension. # Diabetes. # GI and DVT prophylaxis. # Hypertension. The time the note is entered does not reflect the time the patient was examined. I greatly appreciate the consultation. Frederick Jones MD Sep 05, 2018 13:57
--- NOTE | 2018-09-05 15:00 | General Progress Note ---
Assessment/Plan Status: stable Assessment/Plan: S: poor historian O: appears comfortable, no sob, T-piece in place. HEAD AND NECK: Trach in place , on T-piece , Atraumatic and normocephalic. CHEST: Diffuse bronchial breathing sounds. HEART: S1 and S2. Regular rate and rhythm. ABDOMEN: Soft. No organomegaly, NEUROLOGY: Awake, alert and oriented x1. MS: Left arm AVF-well dressed , diffuse atrophied musculature, post removal of rigth perm Cath Meds: Reviewed and reconciled , including Meropenem ASSESSMENT: 1. Left sided AVF Malfunction 2. chronic encephalopathy. 3. Leukocytosis: No evidence of active acute infection 3. End-stage renal disease, on hemodialysis. 4. Hypertension. 5. Diabetes. 6. GI and DVT prophylaxis. 7. Hypertension PLAN OF CARE: Nephro ID notes reviewed Will send blood cultures Agree with empirical abx Post Removal of Perm-Cath , cultures are sent Subjective Allergies: Coded Allergies: No Known Allergies (Unverified , 04/14/16) Objective Last 24 Hour Vital Signs Date Time Temp Pulse Resp B/P (MAP) Pulse Ox O2 Delivery O2 Flow Rate FiO2 09/05/18 13:15 98 T-Piece 8.0 30 09/05/18 12:00 98.2 92 22 111/72 (85) 100 09/05/18 09:06 71 22 97 09/05/18 09:05 62 20 98 09/05/18 09:00 T-piece 8.0 09/05/18 08:03 100 T-Piece 8.0 30 09/05/18 08:03 94 20 100 T-Piece 8.0 30 09/05/18 08:00 99.4 97 20 93/60 (71) 100 09/05/18 04:00 97.5 101 16 103/63 (76) 100 09/05/18 01:38 100 T-Piece 8.0 30 09/05/18 00:00 97.1 93 17 113/69 (84) 100 09/04/18 21:00 T-piece 8.0 09/04/18 20:00 97.4 97 17 117/70 (86) 100 09/04/18 19:59 99 18 98 T-Piece 8.0 30 09/04/18 19:58 98 T-Piece 8.0 30 09/04/18 16:00 98.2 91 20 100/61 (74) 100 Intake and Output 09/04/18 09/05/18 19:00 07:00 Intake Total 250 ml 160 ml Output Total 550 ml 650 ml Balance -300 ml -490 ml Intake Free Water 0 ml IV Total 250 ml 160 ml Tube Feeding 0 ml Output Urine Total 500 ml 600 ml Estimated Blood Loss 50 ml 50 ml # Bowel Movements 1 Laboratory Tests 09/05/18 04:45: White Blood Count 11.5H, Red Blood Count 3.13L, Hemoglobin 9.8L, Hematocrit 29.8L, Mean Corpuscular Volume 95, Mean Corpuscular Hemoglobin 31.3H, Mean Corpuscular Hemoglobin Concent 32.9, Red Cell Distribution Width 20.8H, Platelet Count 413, Mean Platelet Volume 6.6, Neutrophils (%) (Auto) 63.2, Lymphocytes (%) (Auto) 19.4L, Monocytes (%) (Auto) 9.8, Eosinophils (%) (Auto) 6.1H, Basophils (%) (Auto) 1.5, Sodium Level 142, Potassium Level 2.9L, Chloride Level 100, Carbon Dioxide Level 30, Anion Gap 12, Blood Urea Nitrogen 33H, Creatinine 3.7H, Estimat Glomerular Filtration Rate 16.4, Glucose Level 145H, Calcium Level 9.5, Phosphorus Level 3.1, Magnesium Level 2.2, Total Bilirubin 0.5, Aspartate Amino Transf (AST/SGOT) 25, Alanine Aminotransferase ( ALT/SGPT) 26, Alkaline Phosphatase 185H, C-Reactive Protein, Quantitative 6.3H, Total Protein 9.3H, Albumin 3.2L, Globulin 6.1, Albumin/Globulin Ratio 0.5L, Random Vancomycin Level 17.2, Hepatitis B Surface Antigen [Pending] Height (Feet): 5 Height (Inches): 5.00 Weight (Pounds): 126 Hever Olivarez MD Sep 05, 2018 15:00
[2018-09-05 16:00] VITALS: BP 104/69
--- NOTE | 2018-09-05 16:28 | NUR ---
NURSE NOTES: Patient had brownish reddish diarrhea x1, no bloody urine. No bleeding from AV shunt. Patient keeps on scratching his arms, perineal area and legs. Proper incontinent care and skin care done. Patient is a dialysis patient. Proper treatment done. Paged Dr. Olivarez and awaiting for return call. Will continue to monitor.
--- NOTE | 2018-09-05 16:54 | Surgery Progress Note ---
Surgery Progress Note Subjective Additional Comments afebrile, tachy, leukocytosis trending down Objective Last 24 Hour Vital Signs Date Time Temp Pulse Resp B/P (MAP) Pulse Ox O2 Delivery O2 Flow Rate FiO2 09/05/18 16:00 98.8 106 19 104/69 (81) 97 09/05/18 13:15 98 T-Piece 8.0 30 09/05/18 12:00 98.2 92 22 111/72 (85) 100 09/05/18 09:06 71 22 97 09/05/18 09:05 62 20 98 09/05/18 09:00 T-piece 8.0 09/05/18 08:03 100 T-Piece 8.0 30 09/05/18 08:03 94 20 100 T-Piece 8.0 30 09/05/18 08:00 99.4 97 20 93/60 (71) 100 09/05/18 04:00 97.5 101 16 103/63 (76) 100 09/05/18 01:38 100 T-Piece 8.0 30 09/05/18 00:00 97.1 93 17 113/69 (84) 100 09/04/18 21:00 T-piece 8.0 09/04/18 20:00 97.4 97 17 117/70 (86) 100 09/04/18 19:59 99 18 98 T-Piece 8.0 30 09/04/18 19:58 98 T-Piece 8.0 30 I&O Intake and Output 09/04/18 09/05/18 19:00 07:00 Intake Total 250 ml 160 ml Output Total 550 ml 650 ml Balance -300 ml -490 ml Intake Free Water 0 ml IV Total 250 ml 160 ml Tube Feeding 0 ml Output Urine Total 500 ml 600 ml Estimated Blood Loss 50 ml 50 ml # Bowel Movements 1 Dressing: dry Wound: other Drains: other Cardiovascular: RSR Respiratory: decreased breath sounds Abdomen: soft, present bowel sounds Extremities: no cyanosis Laboratory Tests Test 09/05/18 04:45 White Blood Count 11.5 K/UL (4.8-10.8) H Red Blood Count 3.13 M/UL (4.70-6.10) L Hemoglobin 9.8 G/DL (14.2-18.0) L Hematocrit 29.8 % (42.0-52.0) L Mean Corpuscular Volume 95 FL (80-99) Mean Corpuscular Hemoglobin 31.3 PG (27.0-31.0) H Mean Corpuscular Hemoglobin Concent 32.9 G/DL (32.0-36.0) Red Cell Distribution Width 20.8 % (11.6-14.8) H Platelet Count 413 K/UL (150-450) Mean Platelet Volume 6.6 FL (6.5-10.1) Neutrophils (%) (Auto) 63.2 % (45.0-75.0) Lymphocytes (%) (Auto) 19.4 % (20.0-45.0) L Monocytes (%) (Auto) 9.8 % (1.0-10.0) Eosinophils (%) (Auto) 6.1 % (0.0-3.0) H Basophils (%) (Auto) 1.5 % (0.0-2.0) Sodium Level 142 MMOL/L (136-145) Potassium Level 2.9 MMOL/L (3.5-5.1) L Chloride Level 100 MMOL/L (98-107) Carbon Dioxide Level 30 MMOL/L (21-32) Anion Gap 12 mmol/L (5-15) Blood Urea Nitrogen 33 mg/dL (7-18) H Creatinine 3.7 MG/DL (0.55-1.30) H Estimat Glomerular Filtration Rate 16.4 mL/min (>60) Glucose Level 145 MG/DL (74-106) H Calcium Level 9.5 MG/DL (8.5-10.1) Phosphorus Level 3.1 MG/DL (2.5-4.9) Magnesium Level 2.2 MG/DL (1.8-2.4) Total Bilirubin 0.5 MG/DL (0.2-1.0) Aspartate Amino Transf (AST/SGOT) 25 U/L (15-37) Alanine Aminotransferase (ALT/SGPT) 26 U/L (12-78) Alkaline Phosphatase 185 U/L (46-116) H C-Reactive Protein, Quantitative 6.3 mg/dL (0.00-0.90) H Total Protein 9.3 G/DL (6.4-8.2) H Albumin 3.2 G/DL (3.4-5.0) L Globulin 6.1 g/dL Albumin/Globulin Ratio 0.5 (1.0-2.7) L Random Vancomycin Level 17.2 ug/mL Hepatitis B Surface Antigen Pending Plan Problems: (1) Fever (2) Anemia (3) Hyperglycemia (4) Aspiration pneumonia (5) Renal insufficiency (6) Encephalopathy (7) Pneumonia (8) Elevated troponin (9) Heel sore (10) History of CVA (cerebrovascular accident) (11) G-tube site cellulitis (12) Dehydration (13) Electrolyte imbalance (14) GI bleed (15) Dialysis patient (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 Base of wound with trace slough, surrounding erythema.Epithelial scarring from previous wounds noted periwound. Hyperpigmentation scarring noted to sacrum with area in midline that is slowly opening incontinence associated dermatitis with skin breakdown to perianal area and scrotal area. Non-blanchable erythema R heel with fluctuance. Dry scar noted centrally. L heel boggy-pink and blanchable. Skin dryness noted and Numerous scratch duckworth noted to L upper ext, abd and upper thighs. Tx.Plan: Cleanse R ischial wound with Saline. Apply Therahoney. Cover with Optifoam drsg. Change every 3 days and prn. Apply Cavilon To L ear daily. Apply Triad Paste to cleft of buttocks with each perineal care. Apply Cavilon Skin Barrier to both heels. Cover each heel with Optifoam drsg. Change every 7 days and prn. Reposition at least every 2hours or as tolerated. Off-load heels with pillow. (19) Fistula, arteriovenous, acquired (20) Diabetes (21) Sepsis Assessment & Plan: catheter removed by vascular on IV abx as per ID cont with current care will follow with recs thank you (22) UTI (urinary tract infection) (23) AV shunt malfunction (24) Leukocytosis (25) ESRD (end stage renal disease) on dialysis (26) Anemia in chronic kidney disease (CKD) Skyler Salmon Sep 05, 2018 16:54
--- NOTE | 2018-09-05 17:30 | NUR ---
HAND-OFF: Report given to Hernan. Addendum: 09/05/18 at 2012 by DAMIAN CORTES RN wrong entry
[2018-09-05 18:37] LABS: BASOPHILS % (AUTO) 1.8 % (0.0-2.0); EOSINOPHILS % (AUTO) 4.5 % (0.0-3.0); HEMATOCRIT 30.2 % (42.0-52.0); HEMOGLOBIN 10.1 G/DL (14.2-18.0); LYMPHOCYTES % (AUTO) 25.1 % (20.0-45.0); MEAN CORPUSCULAR VOLUME 92 FL (80-99); MONOCYTES % (AUTO) 6.8 % (1.0-10.0); NEUTROPHILS % (AUTO) 61.7 % (45.0-75.0); PLATELET COUNT 401 K/UL (150-450); RED BLOOD COUNT 3.29 M/UL (4.70-6.10); RED CELL DISTRIBUTION WIDTH 19.4 % (11.6-14.8); WHITE BLOOD COUNT 12.4 K/UL (4.8-10.8)
--- NOTE | 2018-09-05 19:00 | NUR ---
NURSE NOTES: no diarrhea so far. proper incontinent care done. No new skin issue.
--- NOTE | 2018-09-05 19:30 | NUR ---
HAND-OFF: Report given to Becerra.
--- NOTE | 2018-09-05 19:35 | NUR ---
NURSE NOTES: RECEIVED PT FROM [facility]. PT IS AWAKE, AAOX0, NONVERBAL. OPEN EYES SPONTANEOUSLY AND WHEN CALL HIS NAME. PT T-PIECE AND TRACH ARE INTACT, 8.0L AND F02 = 30. SUCTION IS WORKING WELL. G-TUBE FEEDING NOTED, NO RESIDUALS, AUSCULTATED FOR PLACEMENT. G-TUBE IS RUNNING NEPRO 1.8 AT 40 ML/HR. PT IS TOLERATING WELL. DRESSINGS ON SACRAL ARE INTACT. INTERMITTENT MUSCLE SPASMS AND TWITCHING NOTED. PT IS AROUSABLE, VVS, NO ACUTE DISTRESS NOTED. BED IS LOCKED AT THE LOWEST POSITION, BED ALARMS ACTIVE, SIDE RAILS UP X2 AND CALL LIGHT IS WITHIN REACH. WILL CONTINUE TO MONITOR.
[2018-09-05 20:00] VITALS: BP 109/71
[2018-09-05] MEDS: Atorvastatin 20mg tab GT SCH (20:43)
[2018-09-05] MEDS: Meropenem 500 MG in NS 55 ML IVPB SCH (20:44)
[2018-09-06] VITALS: BP 105/69
[2018-09-06] MEDS: NovoLOG Insulin Flexpen SUBQ SCH ×5 (01:09→23:23)
[2018-09-06 04:00] VITALS: BP 100/62
--- NOTE | 2018-09-06 07:41 | NUR ---
HAND-OFF: Report given to AMBROSE SAWYER and AMBROSE OCHOA.
--- NOTE | 2018-09-06 07:42 | NUR ---
NURSE NOTES: Received patient in bed, opens his eyes spontaneously. No s/s of pain or discomfort per FLACC pain scale. GT intact, HOB elevated. Trach in place. Suction done. AV shunt on left upper arm with (+)bruit and thrill. Wound dressing intact, on P200 mattress. IV intact, no s/s of infiltration. Will continue plan of care.
[2018-09-06 08:00] VITALS: BP 103/65
[2018-09-06 08:14] LABS: BASOPHILS % (AUTO) 1.5 % (0.0-2.0); EOSINOPHILS % (AUTO) 6.9 % (0.0-3.0); HEMATOCRIT 31.8 % (42.0-52.0); HEMOGLOBIN 10.3 G/DL (14.2-18.0); LYMPHOCYTES % (AUTO) 22.1 % (20.0-45.0); MEAN CORPUSCULAR VOLUME 97 FL (80-99); MONOCYTES % (AUTO) 9.7 % (1.0-10.0); NEUTROPHILS % (AUTO) 59.8 % (45.0-75.0); PLATELET COUNT 394 K/UL (150-450); RED BLOOD COUNT 3.28 M/UL (4.70-6.10); RED CELL DISTRIBUTION WIDTH 20.1 % (11.6-14.8); WHITE BLOOD COUNT 10.8 K/UL (4.8-10.8)
--- NOTE | 2018-09-06 08:40 | NUR ---
NURSE NOTES: patient is in bed noted with involuntary muscle twitching and body movement noted. Dr. Olivarez came in and RN relayed to the doctor. Patient was seen by Dr. Olivarez with no new order. Will continue to monitor. Dr. Olivarez and Dr. Gaitan aware of CRE positive with no new order.
--- NOTE | 2018-09-06 08:49 | General Progress Note ---
Assessment/Plan Status: stable Assessment/Plan: S: poor historian O: appears comfortable, no sob, T-piece in place. HEAD AND NECK: Trach in place , on T-piece , Atraumatic and normocephalic. CHEST: Diffuse bronchial breathing sounds. HEART: S1 and S2. Regular rate and rhythm. ABDOMEN: Soft. No organomegaly, NEUROLOGY: Awake, alert and oriented x1. MS: Left arm AVF-well dressed , diffuse atrophied musculature, post removal of rigth perm Cath Meds: Reviewed and reconciled , including Meropenem and Vanco ASSESSMENT: 1. Left sided AVF Malfunction 2. chronic encephalopathy. 3. Leukocytosis: No evidence of active acute infection 3. End-stage renal disease, on hemodialysis. 4. Hypertension. 5. Diabetes. 6. GI and DVT prophylaxis. 7. Hypertension PLAN OF CARE: Nephro ID notes reviewed Agree with empirical abx Post Removal of Perm-Cath , cultures are sent Pending final cultures Subjective Allergies: Coded Allergies: No Known Allergies (Unverified , 04/14/16) Objective Last 24 Hour Vital Signs Date Time Temp Pulse Resp B/P (MAP) Pulse Ox O2 Delivery O2 Flow Rate FiO2 09/06/18 08:00 97.7 90 17 103/65 (78) 99 09/06/18 07:34 100 T-Piece 8.0 30 09/06/18 04:00 97.2 85 16 100/62 (75) 100 09/06/18 01:53 98 T-Piece 8.0 30 09/06/18 00:00 98.8 99 15 105/69 (81) 100 09/05/18 21:00 T-piece 8.0 09/05/18 20:05 98 20 99 T-Piece 8.0 30 09/05/18 20:05 99 T-Piece 8.0 30 09/05/18 20:00 98.4 100 14 109/71 (84) 100 09/05/18 16:00 98.8 106 19 104/69 (81) 97 09/05/18 13:15 98 T-Piece 8.0 30 09/05/18 12:00 98.2 92 22 111/72 (85) 100 09/05/18 09:06 71 22 97 09/05/18 09:05 62 20 98 09/05/18 09:00 T-piece 8.0 Intake and Output 09/05/18 09/06/18 19:00 07:00 Intake Total 200 ml 200 ml Output Total 50 ml Balance 200 ml 150 ml Intake Free Water 0 ml IV Total 160 ml Tube Feeding 200 ml 40 ml Estimated Blood Loss 50 ml # Bowel Movements 6 Laboratory Tests 09/05/18 16:00: Stool Occult Blood [Pending] 09/05/18 18:32: White Blood Count 12.4H, Red Blood Count 3.29L, Hemoglobin 10.1L, Hematocrit 30.2L, Mean Corpuscular Volume 92, Mean Corpuscular Hemoglobin 30.6, Mean Corpuscular Hemoglobin Concent 33.3, Red Cell Distribution Width 19.4H, Platelet Count 401, Mean Platelet Volume 5.9L, Neutrophils (%) (Auto) 61.7, Lymphocytes (%) (Auto) 25.1, Monocytes (%) (Auto) 6.8, Eosinophils (%) (Auto) 4.5H, Basophils (%) (Auto) 1.8 09/06/18 06:30: White Blood Count 10.8, Red Blood Count 3.28L, Hemoglobin 10.3L, Hematocrit 31.8L, Mean Corpuscular Volume 97, Mean Corpuscular Hemoglobin 31.4H, Mean Corpuscular Hemoglobin Concent 32.4, Red Cell Distribution Width 20.1H, Platelet Count 394, Mean Platelet Volume 6.4L, Neutrophils (%) (Auto) 59.8, Lymphocytes (%) (Auto) 22.1, Monocytes (%) (Auto) 9.7, Eosinophils (%) (Auto) 6.9H, Basophils (%) (Auto) 1.5, Sodium Level [Pending], Potassium Level [Pending ], Chloride Level [Pending], Carbon Dioxide Level [Pending], Blood Urea Nitrogen [Pending], Creatinine [Pending], Estimat Glomerular Filtration Rate [ Pending], Glucose Level [Pending], Calcium Level [Pending], Phosphorus Level [ Pending], Magnesium Level [Pending], Total Bilirubin [Pending], Aspartate Amino Transf (AST/SGOT) [Pending], Alanine Aminotransferase (ALT/SGPT) [Pending], Alkaline Phosphatase [Pending], C-Reactive Protein, Quantitative [Pending], Total Protein [Pending], Total Protein (PEP) [Pending], Albumin [Pending], Albumin (PEP) [Pending], Globulin [Pending], Globulin (PEP) [Pending], Albumin/ Globulin Ratio [Pending], Uirzl-7-Jajanxusb [Pending], Avxcl-2-Iushahmjf [ Pending], Beta Globulins [Pending], Beta Gamma Globulin [Pending], PEP Abnormal Protein Bands [Pending], Protein Electrophoresis Interpret [Pending] Height (Feet): 5 Height (Inches): 5.00 Weight (Pounds): 126 Hever Olivarez MD Sep 06, 2018 08:49
[2018-09-06 08:52] LABS: ALANINE AMINOTRANSFERASE 23 U/L (12-78); ALBUMIN 3.2 G/DL (3.4-5.0); ALBUMIN/GLOBULIN RATIO 0.5 (1.0-2.7); ALKALINE PHOSPHATASE 200 U/L (46-116); ANION GAP 16 mmol/L (5-15); ASPARTATE AMINO TRANSFERASE 21 U/L (15-37); BILIRUBIN,TOTAL 0.5 MG/DL (0.2-1.0); BLOOD UREA NITROGEN 49 mg/dL (7-18); CALCIUM 10.1 MG/DL (8.5-10.1); CARBON DIOXIDE 27 MMOL/L (21-32); CHLORIDE 100 MMOL/L (98-107); CREATININE 5.6 MG/DL (0.55-1.30); PHOSPHORUS 5.2 MG/DL (2.5-4.9); POTASSIUM 3.3 MMOL/L (3.5-5.1); SODIUM 143 MMOL/L (136-145)
[2018-09-06] MEDS: Midodrine 10mg tab ORAL SCH ×3 (09:31→17:35)
[2018-09-06] MEDS: Nephrovite tab (Rena-Vite) ORAL SCH (09:31)
--- NOTE | 2018-09-06 11:34 | Nephrology Progress Note ---
Assessment/Plan Problem List: (1) ESRD (end stage renal disease) on dialysis (2) Sepsis (3) Anemia in chronic kidney disease (CKD) Assessment Sepsis: Source Permacath and or Lung ESRD Severe Anemia Plan Remove permacath, per Vasc surg done K supplement DC Zimmerman antibiotics: One gram Vanco and 120 mg Genta after BCs- further AbRx per ID vascular procedure 48 hours after negative BC results monitor WBCs HD via current functional fistula as needed- ordered 09/04 next 05/10 CXR noted BC results pending per orders suction frequently Subjective ROS Limited/Unobtainable: Yes Objective Objective Last 24 Hour Vital Signs Date Time Temp Pulse Resp B/P (MAP) Pulse Ox O2 Delivery O2 Flow Rate FiO2 09/06/18 09:00 T-piece 8.0 09/06/18 08:00 97.7 90 17 103/65 (78) 99 09/06/18 07:34 100 T-Piece 8.0 30 09/06/18 04:00 97.2 85 16 100/62 (75) 100 09/06/18 01:53 98 T-Piece 8.0 30 09/06/18 00:00 98.8 99 15 105/69 (81) 100 09/05/18 21:00 T-piece 8.0 09/05/18 20:05 98 20 99 T-Piece 8.0 30 09/05/18 20:05 99 T-Piece 8.0 30 09/05/18 20:00 98.4 100 14 109/71 (84) 100 09/05/18 16:00 98.8 106 19 104/69 (81) 97 09/05/18 13:15 98 T-Piece 8.0 30 09/05/18 12:00 98.2 92 22 111/72 (85) 100 Intake and Output 09/05/18 09/06/18 19:00 07:00 Intake Total 200 ml 200 ml Output Total 50 ml Balance 200 ml 150 ml Intake Free Water 0 ml IV Total 160 ml Tube Feeding 200 ml 40 ml Estimated Blood Loss 50 ml # Bowel Movements 6 Laboratory Tests 09/05/18 16:00: Stool Occult Blood [Pending] 09/05/18 18:32: White Blood Count 12.4H, Red Blood Count 3.29L, Hemoglobin 10.1L, Hematocrit 30.2L, Mean Corpuscular Volume 92, Mean Corpuscular Hemoglobin 30.6, Mean Corpuscular Hemoglobin Concent 33.3, Red Cell Distribution Width 19.4H, Platelet Count 401, Mean Platelet Volume 5.9L, Neutrophils (%) (Auto) 61.7, Lymphocytes (%) (Auto) 25.1, Monocytes (%) (Auto) 6.8, Eosinophils (%) (Auto) 4.5H, Basophils (%) (Auto) 1.8 09/06/18 06:30: White Blood Count 10.8, Red Blood Count 3.28L, Hemoglobin 10.3L, Hematocrit 31.8L, Mean Corpuscular Volume 97, Mean Corpuscular Hemoglobin 31.4H, Mean Corpuscular Hemoglobin Concent 32.4, Red Cell Distribution Width 20.1H, Platelet Count 394, Mean Platelet Volume 6.4L, Neutrophils (%) (Auto) 59.8, Lymphocytes (%) (Auto) 22.1, Monocytes (%) (Auto) 9.7, Eosinophils (%) (Auto) 6.9H, Basophils (%) (Auto) 1.5, Sodium Level 143, Potassium Level 3.3L, Chloride Level 100, Carbon Dioxide Level 27, Anion Gap 16H, Blood Urea Nitrogen 49H, Creatinine 5.6#H, Estimat Glomerular Filtration Rate 10.2, Glucose Level 135H, Calcium Level 10.1, Phosphorus Level 5.2H, Magnesium Level 2.5H, Total Bilirubin 0.5, Aspartate Amino Transf (AST/SGOT) 21, Alanine Aminotransferase ( ALT/SGPT) 23, Alkaline Phosphatase 200H, C-Reactive Protein, Quantitative 6.0H, Total Protein 9.4H, Total Protein (PEP) [Pending], Albumin 3.2L, Albumin (PEP) [ Pending], Globulin 6.2, Globulin (PEP) [Pending], Albumin/Globulin Ratio [ Pending], Qjbyg-1-Tthixjcer [Pending], Wiven-4-Eavxixnau [Pending], Beta Globulins [Pending], Beta Gamma Globulin [Pending], PEP Abnormal Protein Bands [ Pending], Protein Electrophoresis Interpret [Pending] Height (Feet): 5 Height (Inches): 5.00 Weight (Pounds): 127 General Appearance: no apparent distress Cardiovascular: normal rate Respiratory/Chest: decreased breath sounds Abdomen: soft Fouladian,Evgeny MD Sep 06, 2018 11:34
--- NOTE | 2018-09-06 11:40 | NUR ---
NURSE NOTES: called [facility] and paged security solutions engineer-nurseEmile for dialysis schedule for tomorrow on 09/07/18.
[2018-09-06 12:00] VITALS: BP 121/56
--- NOTE | 2018-09-06 13:32 | Surgery Progress Note ---
Surgery Progress Note Subjective Additional Comments No acute overnight events. Afebrile, hemodynamically stable, labs noted. Dressing stable. On antibiotics. Objective Last 24 Hour Vital Signs Date Time Temp Pulse Resp B/P (MAP) Pulse Ox O2 Delivery O2 Flow Rate FiO2 09/06/18 12:43 98 T-Piece 8.0 30 09/06/18 12:00 98.1 92 18 121/56 (77) 100 09/06/18 09:00 T-piece 8.0 09/06/18 08:00 97.7 90 17 103/65 (78) 99 09/06/18 07:34 100 T-Piece 8.0 30 09/06/18 04:00 97.2 85 16 100/62 (75) 100 09/06/18 01:53 98 T-Piece 8.0 30 09/06/18 00:00 98.8 99 15 105/69 (81) 100 09/05/18 21:00 T-piece 8.0 09/05/18 20:05 98 20 99 T-Piece 8.0 30 09/05/18 20:05 99 T-Piece 8.0 30 09/05/18 20:00 98.4 100 14 109/71 (84) 100 09/05/18 16:00 98.8 106 19 104/69 (81) 97 I&O Intake and Output 09/05/18 09/06/18 19:00 07:00 Intake Total 200 ml 200 ml Output Total 50 ml Balance 200 ml 150 ml Intake Free Water 0 ml IV Total 160 ml Tube Feeding 200 ml 40 ml Estimated Blood Loss 50 ml # Bowel Movements 6 Dressing: dry Wound: other Drains: other Cardiovascular: RSR Respiratory: decreased breath sounds Abdomen: soft, present bowel sounds, non-distended Extremities: no cyanosis Laboratory Tests Test 09/05/18 16:00 09/05/18 18:32 09/06/18 06:30 Stool Occult Blood Positive (NEGATIVE) White Blood Count 12.4 K/UL (4.8-10.8) H 10.8 K/UL (4.8-10.8) Red Blood Count 3.29 M/UL (4.70-6.10) L 3.28 M/UL (4.70-6.10) L Hemoglobin 10.1 G/DL (14.2-18.0) L 10.3 G/DL (14.2-18.0) L Hematocrit 30.2 % (42.0-52.0) L 31.8 % (42.0-52.0) L Mean Corpuscular Volume 92 FL (80-99) 97 FL (80-99) Mean Corpuscular Hemoglobin 30.6 PG (27.0-31.0) 31.4 PG (27.0-31.0) H Mean Corpuscular Hemoglobin Concent 33.3 G/DL (32.0-36.0) 32.4 G/DL (32.0-36.0) Red Cell Distribution Width 19.4 % (11.6-14.8) H 20.1 % (11.6-14.8) H Platelet Count 401 K/UL (150-450) 394 K/UL (150-450) Mean Platelet Volume 5.9 FL (6.5-10.1) L 6.4 FL (6.5-10.1) L Neutrophils (%) (Auto) 61.7 % (45.0-75.0) 59.8 % (45.0-75.0) Lymphocytes (%) (Auto) 25.1 % (20.0-45.0) 22.1 % (20.0-45.0) Monocytes (%) (Auto) 6.8 % (1.0-10.0) 9.7 % (1.0-10.0) Eosinophils (%) (Auto) 4.5 % (0.0-3.0) H 6.9 % (0.0-3.0) H Basophils (%) (Auto) 1.8 % (0.0-2.0) 1.5 % (0.0-2.0) Sodium Level 143 MMOL/L (136-145) Potassium Level 3.3 MMOL/L (3.5-5.1) L Chloride Level 100 MMOL/L (98-107) Carbon Dioxide Level 27 MMOL/L (21-32) Anion Gap 16 mmol/L (5-15) H Blood Urea Nitrogen 49 mg/dL (7-18) H Creatinine 5.6 MG/DL (0.55-1.30) #H Estimat Glomerular Filtration Rate 10.2 mL/min (>60) Glucose Level 135 MG/DL (74-106) H Calcium Level 10.1 MG/DL (8.5-10.1) Phosphorus Level 5.2 MG/DL (2.5-4.9) H Magnesium Level 2.5 MG/DL (1.8-2.4) H Total Bilirubin 0.5 MG/DL (0.2-1.0) Aspartate Amino Transf (AST/SGOT) 21 U/L (15-37) Alanine Aminotransferase (ALT/SGPT) 23 U/L (12-78) Alkaline Phosphatase 200 U/L (46-116) H C-Reactive Protein, Quantitative 6.0 mg/dL (0.00-0.90) H Total Protein 9.4 G/DL (6.4-8.2) H Total Protein (PEP) Pending Albumin 3.2 G/DL (3.4-5.0) L Albumin (PEP) Pending Globulin 6.2 g/dL Globulin (PEP) Pending Albumin/Globulin Ratio Pending Ltpqs-4-Uqltijzux Pending Keiln-0-Vrnhyahrl Pending Beta Globulins Pending Beta Gamma Globulin Pending PEP Abnormal Protein Bands Pending Protein Electrophoresis Interpret Pending Plan Problems: (1) Fever (2) Anemia (3) Hyperglycemia (4) Aspiration pneumonia (5) Renal insufficiency (6) Encephalopathy (7) Pneumonia (8) Elevated troponin (9) Heel sore (10) History of CVA (cerebrovascular accident) (11) G-tube site cellulitis (12) Dehydration (13) Electrolyte imbalance (14) GI bleed (15) Dialysis patient (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 Base of wound with trace slough, surrounding erythema.Epithelial scarring from previous wounds noted periwound. Hyperpigmentation scarring noted to sacrum with area in midline that is slowly opening incontinence associated dermatitis with skin breakdown to perianal area and scrotal area. Non-blanchable erythema R heel with fluctuance. Dry scar noted centrally. L heel boggy-pink and blanchable. Skin dryness noted and Numerous scratch duckworth noted to L upper ext, abd and upper thighs. Tx.Plan: Cleanse R ischial wound with Saline. Apply Therahoney. Cover with Optifoam drsg. Change every 3 days and prn. Apply Cavilon To L ear daily. Apply Triad Paste to cleft of buttocks with each perineal care. Apply Cavilon Skin Barrier to both heels. Cover each heel with Optifoam drsg. Change every 7 days and prn. Reposition at least every 2hours or as tolerated. Off-load heels with pillow. (19) Fistula, arteriovenous, acquired (20) Diabetes (21) Sepsis Assessment & Plan: catheter removed by vascular on IV abx as per ID cont with current care will follow with recs thank you (22) UTI (urinary tract infection) (23) AV shunt malfunction (24) Leukocytosis (25) ESRD (end stage renal disease) on dialysis (26) Anemia in chronic kidney disease (CKD) Skyler Salmon Sep 06, 2018 13:31
--- NOTE | 2018-09-06 14:10 | Hematology/Onc Progress Note ---
Assessment/Plan Assessment/Plan ASSESSMENT AND RECOMMENDATIONS # Leukocytosis/elevated white blood cell count, unspecified likely related to underlying stress reaction, smoking v more likely infection --> have reviewed peripheral smear and bandemia/neutrophilia noted --> continue antibiotics if they have been started by ID team --> monitor for resolution --> wbc trend: 16--> 11k-->10.8 # Anemia of chronic disease due to underlying chronic medical issues, multifactorial very likely due to CKD --> Anemia workup has been reviewed. Ferritin 1631 --> No evidence of hemolysis is noted, peripheral smear has been reviewed. --> Hgb goal >7. Transfuse prn. --> Epogen or iron at this time is not particularly indicated --> Medications have been reviewed --> stool OB++ --> bone marrow biopsy is not indicated given the other more likely causes --> hgb trend: 9.9-->10-->10.3 # Left sided AVF Malfuntion --> per vascular # Chronic encephalopathy. # End-stage renal disease. Nephro is following, appreciate recs. --> on hemodialysis. # Hypertension. # Diabetes. # GI and DVT prophylaxis. # Hypertension. The time the note is entered does not reflect the time the patient was examined. I greatly appreciate the consultation. Subjective ROS Limited/Unobtainable: Yes Hematologic/Lymphatic: Reports: anemia Allergies: Coded Allergies: No Known Allergies (Unverified , 04/14/16) Subjective 09/06: Pt in bed noted with involuntary muscle twitching and body movement noted. H/H stable. Blood cx ++. Stool OB++ Objective Objective Current Medications Medications (Trade) Dose Ordered Sig/Xochilt Route PRN Reason Start Time Stop Time Status Last Admin Dose Admin Acetaminophen (Tylenol) 650 mg DAILYPRN PRN GT prior to wound treatment 09/02/18 20:45 10/02/18 20:44 Acetaminophen (Tylenol) 650 mg Q6H PRN GT Mild Pain/Temp > 100.0 09/02/18 20:45 10/02/18 20:44 Atorvastatin Calcium (Lipitor) 40 mg BEDTIME GT 09/02/18 21:00 10/02/18 20:59 09/05/18 20:43 Bisacodyl (Dulcolax) 10 mg DAILYPRN PRN RECTAL Constipation 09/02/18 20:45 10/02/18 20:44 Dextrose (Dextrose 50%) 25 ml Q30M PRN IV Hypoglycemia 09/02/18 20:45 10/02/18 20:44 Dextrose (Dextrose 50%) 50 ml Q30M PRN IV Hypoglycemia 09/02/18 20:45 10/02/18 20:44 Famotidine (Pepcid) 20 mg DAILY GT 09/03/18 09:00 10/03/18 08:59 09/06/18 09:32 Insulin Aspart (NovoLOG) Q6HR SUBQ 09/03/18 00:00 10/02/18 20:59 09/06/18 11:56 Lactulose (Cephulac) 20 gm DAILYPRN PRN ORAL constipation 09/02/18 20:45 10/02/18 20:44 Meropenem 500 mg/ Sodium Chloride 55 ml @ 110 mls/hr Q24H IVPB 09/03/18 21:00 09/08/18 20:59 09/05/18 20:44 Midodrine (Pro-Amatine) 10 mg THREE TIMES A DAY ORAL 09/02/18 20:45 10/02/18 20:44 09/06/18 13:09 Sodium Phosphate (Fleet's Sodium Phosl Enema) 133 ml DAILYPRN PRN RECTAL constipation 09/02/18 20:45 10/02/18 20:44 Vancomycin HCl (Vanco rx to dose) 1 ea DAILY PRN MISC Per rx protocol 09/03/18 14:30 10/03/18 14:29 Vitamin B Complex/ Vit C/Folic Acid (Nephrovite) 1 tab DAILY ORAL 09/03/18 09:00 10/03/18 08:59 09/06/18 09:31 Last 24 Hour Vital Signs Date Time Temp Pulse Resp B/P (MAP) Pulse Ox O2 Delivery O2 Flow Rate FiO2 09/06/18 12:43 98 T-Piece 8.0 30 09/06/18 12:00 98.1 92 18 121/56 (77) 100 09/06/18 09:00 T-piece 8.0 09/06/18 08:00 97.7 90 17 103/65 (78) 99 09/06/18 07:34 100 T-Piece 8.0 30 09/06/18 04:00 97.2 85 16 100/62 (75) 100 09/06/18 01:53 98 T-Piece 8.0 30 09/06/18 00:00 98.8 99 15 105/69 (81) 100 09/05/18 21:00 T-piece 8.0 09/05/18 20:05 98 20 99 T-Piece 8.0 30 09/05/18 20:05 99 T-Piece 8.0 30 09/05/18 20:00 98.4 100 14 109/71 (84) 100 09/05/18 16:00 98.8 106 19 104/69 (81) 97 09/05/18 13:15 98 T-Piece 8.0 30 09/05/18 12:00 98.2 92 22 111/72 (85) 100 09/05/18 09:06 71 22 97 09/05/18 09:05 62 20 98 09/05/18 09:00 T-piece 8.0 09/05/18 08:03 100 T-Piece 8.0 30 09/05/18 08:03 94 20 100 T-Piece 8.0 30 09/05/18 08:00 99.4 97 20 93/60 (71) 100 09/05/18 04:00 97.5 101 16 103/63 (76) 100 09/05/18 01:38 100 T-Piece 8.0 30 09/05/18 00:00 97.1 93 17 113/69 (84) 100 09/04/18 21:00 T-piece 8.0 09/04/18 20:00 97.4 97 17 117/70 (86) 100 09/04/18 19:59 99 18 98 T-Piece 8.0 30 09/04/18 19:58 98 T-Piece 8.0 30 09/04/18 16:00 98.2 91 20 100/61 (74) 100 Intake and Output 09/05/18 09/06/18 19:00 07:00 Intake Total 200 ml 200 ml Output Total 50 ml Balance 200 ml 150 ml Intake Free Water 0 ml IV Total 160 ml Tube Feeding 200 ml 40 ml Estimated Blood Loss 50 ml # Bowel Movements 6 Labs Test 09/03/18 21:00 09/04/18 06:00 09/05/18 04:45 09/05/18 16:00 Urine Color [place] Urine Appearance Turbid Urine pH 6 (4.5-8.0) Urine Specific [place] 1.010 (1.005-1.035) Urine Protein 4+ (NEGATIVE) Urine Glucose (UA) Negative (NEGATIVE) Urine Ketones 1+ (NEGATIVE) Urine Blood 5+ (NEGATIVE) Urine Nitrite Positive (NEGATIVE) Urine Bilirubin Negative (NEGATIVE) Urine Urobilinogen Normal MG/DL (0.0-1.0) Urine Leukocyte Esterase 3+ (NEGATIVE) Urine RBC Tntc /HPF (0 - 0) Urine WBC Tntc /HPF (0 - 0) Urine Squamous Epithelial Cells Occasional /LPF Urine Bacteria Many /HPF (NONE) White Blood Count 16.0 K/UL (4.8-10.8) 11.5 K/UL (4.8-10.8) Red Blood Count 3.20 M/UL (4.70-6.10) 3.13 M/UL (4.70-6.10) Hemoglobin 9.9 G/DL (14.2-18.0) 9.8 G/DL (14.2-18.0) Hematocrit 30.2 % (42.0-52.0) 29.8 % (42.0-52.0) Mean Corpuscular Volume 94 FL (80-99) 95 FL (80-99) Mean Corpuscular Hemoglobin 30.9 PG (27.0-31.0) 31.3 PG (27.0-31.0) Mean Corpuscular Hemoglobin Concent 32.7 G/DL (32.0-36.0) 32.9 G/DL (32.0-36.0) Red Cell Distribution Width 20.7 % (11.6-14.8) 20.8 % (11.6-14.8) Platelet Count 406 K/UL (150-450) 413 K/UL (150-450) Mean Platelet Volume 7.0 FL (6.5-10.1) 6.6 FL (6.5-10.1) Neutrophils (%) (Auto) % (45.0-75.0) 63.2 % (45.0-75.0) Lymphocytes (%) (Auto) % (20.0-45.0) 19.4 % (20.0-45.0) Monocytes (%) (Auto) % (1.0-10.0) 9.8 % (1.0-10.0) Eosinophils (%) (Auto) % (0.0-3.0) 6.1 % (0.0-3.0) Basophils (%) (Auto) % (0.0-2.0) 1.5 % (0.0-2.0) Differential Total Cells Counted 100 Neutrophils % (Manual) 66 % (45-75) Lymphocytes % (Manual) 22 % (20-45) Monocytes % (Manual) 9 % (1-10) Eosinophils % (Manual) 3 % (0-3) Basophils % (Manual) 0 % (0-2) Band Neutrophils 0 % (0-8) Platelet Estimate Adequate Platelet Morphology Normal Polychromasia 2+ Hypochromasia 1+ Anisocytosis 2+ Sodium Level 137 MMOL/L (136-145) 142 MMOL/L (136-145) Potassium Level 4.4 MMOL/L (3.5-5.1) 2.9 MMOL/L (3.5-5.1) Chloride Level 98 MMOL/L (98-107) 100 MMOL/L (98-107) Carbon Dioxide Level 24 MMOL/L (21-32) 30 MMOL/L (21-32) Anion Gap 15 mmol/L (5-15) 12 mmol/L (5-15) Blood Urea Nitrogen 80 mg/dL (7-18) 33 mg/dL (7-18) Creatinine 6.6 MG/DL (0.55-1.30) 3.7 MG/DL (0.55-1.30) Estimat Glomerular Filtration Rate 8.4 mL/min (>60) 16.4 mL/min (>60) Glucose Level 119 MG/DL (74-106) 145 MG/DL (74-106) Uric Acid 9.5 MG/DL (2.6-7.2) Calcium Level 10.3 MG/DL (8.5-10.1) 9.5 MG/DL (8.5-10.1) Phosphorus Level 4.9 MG/DL (2.5-4.9) 3.1 MG/DL (2.5-4.9) Magnesium Level 2.7 MG/DL (1.8-2.4) 2.2 MG/DL (1.8-2.4) Iron Level 33 ug/dL (50-175) Total Iron Binding Capacity 194 ug/dL (250-450) Percent Iron Saturation 17 % (15-50) Unsaturated Iron Binding 161 ug/dL (112-346) Ferritin 1631 NG/ML (8-388) Total Bilirubin 0.6 MG/DL (0.2-1.0) 0.5 MG/DL (0.2-1.0) Gamma Glutamyl Transpeptidase 57 U/L (5-85) Aspartate Amino Transf (AST/SGOT) 22 U/L (15-37) 25 U/L (15-37) Alanine Aminotransferase (ALT/SGPT) 35 U/L (12-78) 26 U/L (12-78) Alkaline Phosphatase 182 U/L (46-116) 185 U/L (46-116) Total Creatine Kinase 73 U/L (26-308) Troponin I 0.000 ng/mL (0.000-0.056) C-Reactive Protein, Quantitative 6.5 mg/dL (0.00-0.90) 6.3 mg/dL (0.00-0.90) Pro-B-Type Natriuretic Peptide 1535 pg/mL (0-125) Total Protein 9.4 G/DL (6.4-8.2) 9.3 G/DL (6.4-8.2) Albumin 3.3 G/DL (3.4-5.0) 3.2 G/DL (3.4-5.0) Globulin 6.1 g/dL 6.1 g/dL Albumin/Globulin Ratio 0.5 (1.0-2.7) 0.5 (1.0-2.7) Triglycerides Level 281 MG/DL (30-150) Cholesterol Level 102 MG/DL (< 200) LDL Cholesterol 51 mg/dL (<100) HDL Cholesterol 26 MG/DL (40-60) Cholesterol/HDL Ratio 3.9 (3.3-4.4) Vitamin B12 Level 1153 PG/ML (193-986) Folate 87.0 NG/ML (8.6-58.9) Thyroid Stimulating Hormone (TSH) 3.136 uiU/mL (0.358-3.740) Random Gentamicin Level 7.1 ug/mL Random Vancomycin Level 25.4 ug/mL 17.2 ug/mL Stool Occult Blood Positive (NEGATIVE) Test 09/05/18 18:32 09/06/18 06:30 White Blood Count 12.4 K/UL (4.8-10.8) 10.8 K/UL (4.8-10.8) Red Blood Count 3.29 M/UL (4.70-6.10) 3.28 M/UL (4.70-6.10) Hemoglobin 10.1 G/DL (14.2-18.0) 10.3 G/DL (14.2-18.0) Hematocrit 30.2 % (42.0-52.0) 31.8 % (42.0-52.0) Mean Corpuscular Volume 92 FL (80-99) 97 FL (80-99) Mean Corpuscular Hemoglobin 30.6 PG (27.0-31.0) 31.4 PG (27.0-31.0) Mean Corpuscular Hemoglobin Concent 33.3 G/DL (32.0-36.0) 32.4 G/DL (32.0-36.0) Red Cell Distribution Width 19.4 % (11.6-14.8) 20.1 % (11.6-14.8) Platelet Count 401 K/UL (150-450) 394 K/UL (150-450) Mean Platelet Volume 5.9 FL (6.5-10.1) 6.4 FL (6.5-10.1) Neutrophils (%) (Auto) 61.7 % (45.0-75.0) 59.8 % (45.0-75.0) Lymphocytes (%) (Auto) 25.1 % (20.0-45.0) 22.1 % (20.0-45.0) Monocytes (%) (Auto) 6.8 % (1.0-10.0) 9.7 % (1.0-10.0) Eosinophils (%) (Auto) 4.5 % (0.0-3.0) 6.9 % (0.0-3.0) Basophils (%) (Auto) 1.8 % (0.0-2.0) 1.5 % (0.0-2.0) Sodium Level 143 MMOL/L (136-145) Potassium Level 3.3 MMOL/L (3.5-5.1) Chloride Level 100 MMOL/L (98-107) Carbon Dioxide Level 27 MMOL/L (21-32) Anion Gap 16 mmol/L (5-15) Blood Urea Nitrogen 49 mg/dL (7-18) Creatinine 5.6 MG/DL (0.55-1.30) Estimat Glomerular Filtration Rate 10.2 mL/min (>60) Glucose Level 135 MG/DL (74-106) Calcium Level 10.1 MG/DL (8.5-10.1) Phosphorus Level 5.2 MG/DL (2.5-4.9) Magnesium Level 2.5 MG/DL (1.8-2.4) Total Bilirubin 0.5 MG/DL (0.2-1.0) Aspartate Amino Transf (AST/SGOT) 21 U/L (15-37) Alanine Aminotransferase (ALT/SGPT) 23 U/L (12-78) Alkaline Phosphatase 200 U/L (46-116) C-Reactive Protein, Quantitative 6.0 mg/dL (0.00-0.90) Total Protein 9.4 G/DL (6.4-8.2) Albumin 3.2 G/DL (3.4-5.0) Globulin 6.2 g/dL Albumin/Globulin Ratio 0.5 (1.0-2.7) Height (Feet): 5 Height (Inches): 5.00 Weight (Pounds): 127 Objective Physical Exam GENERAL: NAD VITALS: Have been reviewed HEAD AND NECK: Trach in place , on T-bar , Atraumatic and normocephalic. CHEST: Diffuse bronchial breathing sounds. HEART: S1 and S2. Regular rate and rhythm. ABDOMEN: Soft. No organomegaly, GT++ NEUROLOGY: Awake, alert and oriented x1. MS: Left arm AVF-well dressed , diffuse atrophied musculature Frederick Jones MD Sep 06, 2018 14:10
[2018-09-06 16:00] VITALS: BP 126/59
--- NOTE | 2018-09-06 16:43 | NUR ---
NURSE NOTES: OB stool came back positive. RN relayed to Dr. Olivarez with new order to call Dr. Nixon.
--- NOTE | 2018-09-06 16:55 | NUR ---
NURSE NOTES: Dr. Nixon is aware of OB stool positive with no new order.
--- NOTE | 2018-09-06 17:44 | NUR ---
CASE MANAGEMENT: REVIEW SI:AV SHUNT MALFUNCTION . ESRD T 98.6 HR 88 RR 18 B/P 126/59 SATS 100% ON MECH VENT FiO2 30 K 3.3 BUN 49 CR 5.6 GLU 135 PHOS 5.2 MG 2.5 ALP 200 IS:NOVOLOG SUBQ LEFT ARM FISTULOGRAM MED/SURG STATUS DCP: RETURN TO [facility]
--- NOTE | 2018-09-06 19:00 | NUR ---
NURSE NOTES: Proper incontinent care done, no new skin issue noted.
--- NOTE | 2018-09-06 19:03 | Infectious Diseases Prog Note ---
Assessment/Plan Problems: (1) Sepsis Assessment & Plan: with leukocytosis, source ? HD catheter ? continue meropenem and vancomycin empirically pending cultures, had his HD catheter removed , since old and has not been used (2) AV shunt malfunction Assessment & Plan: had surgical revision today by vascular surgery, and HD catheter removal, vascular is following (3) Diabetes Assessment & Plan: recommend tight glycemic control to keep blood glucose between 100-140 (4) Leukocytosis Assessment & Plan: could be due to old HD catheter with infection VS Pneumonia VS CAUTI , continue meropenem and vancomycin empirically pending cultures 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 , no need to treat at this point , will monitor clinically Subjective ROS Limited/Unobtainable: Yes Allergies: Coded Allergies: No Known Allergies (Unverified , 04/14/16) Subjective He was resting in bed comfortable, had revision of his left arm fistula, and his old HD catheter was removed , more alert , no significant secretions Objective Vital Signs Last 24 Hour Vital Signs Date Time Temp Pulse Resp B/P (MAP) Pulse Ox O2 Delivery O2 Flow Rate FiO2 09/06/18 16:00 98.6 88 18 126/59 (81) 100 09/06/18 12:43 98 T-Piece 8.0 30 09/06/18 12:00 98.1 92 18 121/56 (77) 100 09/06/18 09:00 T-piece 8.0 09/06/18 08:00 97.7 90 17 103/65 (78) 99 09/06/18 07:34 100 T-Piece 8.0 30 09/06/18 04:00 97.2 85 16 100/62 (75) 100 09/06/18 01:53 98 T-Piece 8.0 30 09/06/18 00:00 98.8 99 15 105/69 (81) 100 09/05/18 21:00 T-piece 8.0 09/05/18 20:05 98 20 99 T-Piece 8.0 30 09/05/18 20:05 99 T-Piece 8.0 30 09/05/18 20:00 98.4 100 14 109/71 (84) 100 Height (Feet): 5 Height (Inches): 5.00 Weight (Pounds): 127 General Appearance: WD/WN, no acute distress HEENT: normocephalic, atraumatic, anicteric, mucous membranes moist, PERRL Respiratory/Chest: chest wall non-tender, normal breath sounds, no respiratory distress, no accessory muscle use, decreased breath sounds Cardiovascular: normal peripheral pulses, normal rate, regular rhythm, no gallop/murmur, no JVD Abdomen: normal bowel sounds, soft, non tender, no organomegaly, non distended , no mass, no scars Genitourinary: normal external genitalia Extremities: no cyanosis, no clubbing Skin: no rash, no lesions, no ulcers Neurologic/Psychiatric: alert Lymphatic: no neck adenopathy, no groin adenopathy Musculoskeletal: normal muscle bulk, no effusion Microbiology Date/Time Source Procedure Growth Status 09/04/18 06:00 Blood Blood Culture - Preliminary Staphylococcus Sp Coag Neg Resulted 09/03/18 21:00 Indwelling Cath Urine Culture - Preliminary Escherichia Coli - Esbl Gram Negative Bacillus 2 Resulted 09/04/18 12:30 Catheter Site Catheter Tip Culture - Preliminary NO GROWTH AFTER 24 HOURS Resulted Laboratory Tests Test 09/06/18 06:30 White Blood Count 10.8 K/UL (4.8-10.8) Red Blood Count 3.28 M/UL (4.70-6.10) L Hemoglobin 10.3 G/DL (14.2-18.0) L Hematocrit 31.8 % (42.0-52.0) L Mean Corpuscular Volume 97 FL (80-99) Mean Corpuscular Hemoglobin 31.4 PG (27.0-31.0) H Mean Corpuscular Hemoglobin Concent 32.4 G/DL (32.0-36.0) Red Cell Distribution Width 20.1 % (11.6-14.8) H Platelet Count 394 K/UL (150-450) Mean Platelet Volume 6.4 FL (6.5-10.1) L Neutrophils (%) (Auto) 59.8 % (45.0-75.0) Lymphocytes (%) (Auto) 22.1 % (20.0-45.0) Monocytes (%) (Auto) 9.7 % (1.0-10.0) Eosinophils (%) (Auto) 6.9 % (0.0-3.0) H Basophils (%) (Auto) 1.5 % (0.0-2.0) Sodium Level 143 MMOL/L (136-145) Potassium Level 3.3 MMOL/L (3.5-5.1) L Chloride Level 100 MMOL/L (98-107) Carbon Dioxide Level 27 MMOL/L (21-32) Anion Gap 16 mmol/L (5-15) H Blood Urea Nitrogen 49 mg/dL (7-18) H Creatinine 5.6 MG/DL (0.55-1.30) #H Estimat Glomerular Filtration Rate 10.2 mL/min (>60) Glucose Level 135 MG/DL (74-106) H Calcium Level 10.1 MG/DL (8.5-10.1) Phosphorus Level 5.2 MG/DL (2.5-4.9) H Magnesium Level 2.5 MG/DL (1.8-2.4) H Total Bilirubin 0.5 MG/DL (0.2-1.0) Aspartate Amino Transf (AST/SGOT) 21 U/L (15-37) Alanine Aminotransferase (ALT/SGPT) 23 U/L (12-78) Alkaline Phosphatase 200 U/L (46-116) H C-Reactive Protein, Quantitative 6.0 mg/dL (0.00-0.90) H Total Protein 9.4 G/DL (6.4-8.2) H Total Protein (PEP) Pending Albumin 3.2 G/DL (3.4-5.0) L Albumin (PEP) Pending Globulin 6.2 g/dL Globulin (PEP) Pending Albumin/Globulin Ratio Pending Cshia-[id number] Pending Fhevi-[id number] Pending Beta Globulins Pending Beta Gamma Globulin Pending PEP Abnormal Protein Bands Pending Protein Electrophoresis Interpret Pending Current Medications Medications (Trade) Dose Ordered Sig/Xochilt Route PRN Reason Start Time Stop Time Status Last Admin Dose Admin Acetaminophen (Tylenol) 650 mg DAILYPRN PRN GT prior to wound treatment 09/02/18 20:45 10/02/18 20:44 Acetaminophen (Tylenol) 650 mg Q6H PRN GT Mild Pain/Temp > 100.0 09/02/18 20:45 10/02/18 20:44 Atorvastatin Calcium (Lipitor) 40 mg BEDTIME GT 09/02/18 21:00 10/02/18 20:59 09/05/18 20:43 Bisacodyl (Dulcolax) 10 mg DAILYPRN PRN RECTAL Constipation 09/02/18 20:45 10/02/18 20:44 Dextrose (Dextrose 50%) 25 ml Q30M PRN IV Hypoglycemia 09/02/18 20:45 10/02/18 20:44 Dextrose (Dextrose 50%) 50 ml Q30M PRN IV Hypoglycemia 09/02/18 20:45 10/02/18 20:44 Famotidine (Pepcid) 20 mg DAILY GT 09/03/18 09:00 10/03/18 08:59 09/06/18 09:32 Insulin Aspart (NovoLOG) Q6HR SUBQ 09/03/18 00:00 10/02/18 20:59 09/06/18 17:36 Lactulose (Cephulac) 20 gm DAILYPRN PRN ORAL constipation 09/02/18 20:45 10/02/18 20:44 Meropenem 500 mg/ Sodium Chloride 55 ml @ 110 mls/hr Q24H IVPB 09/03/18 21:00 09/08/18 20:59 09/05/18 20:44 Midodrine (Pro-Amatine) 10 mg THREE TIMES A DAY ORAL 09/02/18 20:45 10/02/18 20:44 09/06/18 17:35 Sodium Phosphate (Fleet's Sodium Phosl Enema) 133 ml DAILYPRN PRN RECTAL constipation 09/02/18 20:45 10/02/18 20:44 Vancomycin HCl (Vanco rx to dose) 1 ea DAILY PRN MISC Per rx protocol 09/03/18 14:30 10/03/18 14:29 Vitamin B Complex/ Vit C/Folic Acid (Nephrovite) 1 tab DAILY ORAL 09/03/18 09:00 10/03/18 08:59 09/06/18 09:31 Devika Gaitan M.D. Sep 06, 2018 19:03
--- NOTE | 2018-09-06 19:25 | NUR ---
HAND-OFF: Report given to Becerra.
[2018-09-06 20:00] VITALS: BP 108/60
[2018-09-06] MEDS: Meropenem 500 MG in NS 55 ML IVPB SCH (22:50)
[2018-09-06] MEDS: Atorvastatin 20mg tab GT SCH (22:50)
[2018-09-07] VITALS: BP 113/64
[2018-09-07 04:00] VITALS: BP 98/69
[2018-09-07] MEDS: NovoLOG Insulin Flexpen SUBQ SCH ×4 (06:49→23:56)
--- NOTE | 2018-09-07 07:30 | NUR ---
HAND-OFF: Report given to AMBROSE de oliveira.
[2018-09-07 08:00] VITALS: BP 118/66
--- NOTE | 2018-09-07 08:19 | NUR ---
NURSE NOTES: HANDOFF RECEIVED FROM AMBIKA, RN. PATIENT RESTING IN BED, BED IN LOCKED AND LOWEST POSITION, CALL LIGHT WITHIN REACH.
[2018-09-07] MEDS ORDERED: Vancomycin 1gm/D5W 275ml IVPB SCH ×2 (10:00)
[2018-09-07] MEDS: Midodrine 10mg tab ORAL SCH ×3 (11:06→18:55)
[2018-09-07] MEDS: Nephrovite tab (Rena-Vite) ORAL SCH (11:07)
[2018-09-07 12:00] VITALS: BP 126/69
--- NOTE | 2018-09-07 12:13 | NUR ---
RD ASSESSMENT & RECOMMENDATIONS SEE CARE ACTIVITY FOR COMPLETE ASSESSMENT DAILY ESTIMATED NEEDS: Needs based on Pulmonary, wound, ESRD on HD, bedbound 66kg 25-30 kcals/kg 0955-3336 total kcals 1.25-1.8 g protein/kg 82-118 g total protein Fluid per MD, on HD NUTRITION DIAGNOSIS: 1) Increased kcal and protein needs r/t renal dysfunction, wound healing as evidenced by pt w/ ESRD on HD, admitted w/ resolving pressure injury to R ischium and non-blanchable erythema R heel. 2) Swallowing difficulty r/t respiratory status as evidenced by pt is on T-piece w/ GT to meet nutritional needs. CURRENT TF:Nepro @ 40ml/hr x 16 hrs ENTERAL NUTRITION RECOMMENDATIONS: NEPRO @40ml/hr x 24 hrs + Prosource 1pkt BID to provide 960ml, 1728kcal, 78g + 22g prot, 698ml free water - Rec to increase run time to 24 hrs to meet est nutritional needs - Add Prosource 1 packet BID to better meet est pro needs - Flush per MD/ HOB over 30 degrees ADDITIONAL RECOMMENDATIONS: 1) Per SNF, pt is 65", 146lbs (obtained 06/22/18) 2) Calibrated bedscale wt 3) Wound healing- add TAIWO BID 4) Elev Triglycerides/ consider lipid lowering agent 5) Monitor phos level, need for phos binders
--- NOTE | 2018-09-07 13:55 | General Progress Note ---
Assessment/Plan Status: stable Assessment/Plan: S: poor historian O: appears comfortable, no sob, T-piece in place. HEAD AND NECK: Trach in place , on T-piece , Atraumatic and normocephalic. CHEST: Diffuse bronchial breathing sounds. HEART: S1 and S2. Regular rate and rhythm. ABDOMEN: Soft. No organomegaly, NEUROLOGY: Awake, alert and oriented x1. MS: Left arm AVF-well dressed , diffuse atrophied musculature, post removal of rigth perm Cath Meds: Reviewed and reconciled , including Meropenem and Vanco ASSESSMENT: 1. Left sided AVF Malfunction 2. chronic encephalopathy. 3. Leukocytosis: No evidence of active acute infection 3. End-stage renal disease, on hemodialysis. 4. Hypertension. 5. Diabetes. 6. GI and DVT prophylaxis. 7. Hypertension 8. Acute Anemia PLAN OF CARE: Nephro ID notes reviewed Agree with empirical abx Post Removal of Perm-Cath , cultures are sent Gram positive Coccemia ok to DC once clear by ID Subjective Allergies: Coded Allergies: No Known Allergies (Unverified , 04/14/16) Objective Last 24 Hour Vital Signs Date Time Temp Pulse Resp B/P (MAP) Pulse Ox O2 Delivery O2 Flow Rate FiO2 09/07/18 13:07 97 T-Piece 8.0 30 09/07/18 08:00 98.0 89 17 118/66 (83) 98 09/07/18 07:00 97 T-Piece 8.0 30 09/07/18 04:00 98.3 98 15 98/69 (79) 99 09/07/18 01:12 99 T-Piece 8.0 30 09/07/18 00:00 98.2 87 15 113/64 (80) 97 09/06/18 21:00 T-piece 8.0 09/06/18 20:00 98.9 79 15 108/60 (76) 100 09/06/18 19:31 98 T-Piece 8.0 30 09/06/18 16:00 98.6 88 18 126/59 (81) 100 Intake and Output 09/06/18 09/07/18 19:00 07:00 Intake Total 270 ml 240 ml Output Total 50 ml Balance 270 ml 190 ml Intake Free Water 150 ml 150 ml IV Total 50 ml Tube Feeding 120 ml 40 ml Estimated Blood Loss 50 ml Laboratory Tests 09/07/18 07:11: Random Vancomycin Level 14.8 Height (Feet): 5 Height (Inches): 5.00 Weight (Pounds): 127 Hever Olivarez MD Sep 07, 2018 13:55
[2018-09-07] MEDS ORDERED: NS 275ml ONE (14:15)
[2018-09-07] MEDS ORDERED: Tubing IV Secondary IV ONE ×2 (14:15)
--- NOTE | 2018-09-07 14:39 | NUR ---
*-* DISCHARGE PLANNING *-* PATIENT HAS BEEN REFERRED BACK TO: [facility]. P:[phone] F:[phone] Addendum: 09/07/18 at 1447 by MAC DIAMOND CM F:[phone]
--- NOTE | 2018-09-07 14:54 | Hematology/Onc Progress Note ---
Assessment/Plan Assessment/Plan ASSESSMENT AND RECOMMENDATIONS # Leukocytosis/elevated white blood cell count, unspecified likely related to underlying stress reaction, smoking v more likely infection --> have reviewed peripheral smear and bandemia/neutrophilia noted --> continue antibiotics if they have been started by ID team --> monitor for resolution --> wbc trend: 16--> 11k-->10.8 # Anemia of chronic disease due to underlying chronic medical issues, multifactorial very likely due to CKD --> Anemia workup has been reviewed. Ferritin 1631 --> No evidence of hemolysis is noted, peripheral smear has been reviewed. --> Hgb goal >7. Transfuse prn. --> Epogen or iron at this time is not particularly indicated --> Medications have been reviewed --> stool OB++ --> bone marrow biopsy is not indicated given the other more likely causes --> hgb trend: 9.9-->10-->10.3 # Left sided AVF Malfuntion --> per vascular #. History of LEft Arm mass --> bx of left lymph node tissue in left arm in June 2018 negative for malignancy # Chronic encephalopathy. # End-stage renal disease. Nephro is following, appreciate recs. --> on hemodialysis. # Hypertension. # Diabetes. # GI and DVT prophylaxis. # Hypertension. The time the note is entered does not reflect the time the patient was examined. I greatly appreciate the consultation. Subjective Allergies: Coded Allergies: No Known Allergies (Unverified , 04/14/16) Subjective Subjective ROS Limited/Unobtainable: Yes Hematologic/Lymphatic: Reports: anemia Allergies: Coded Allergies: No Known Allergies (Unverified , 04/14/16) Subjective 09/06: Pt in bed noted with involuntary muscle twitching and body movement noted. H/H stable. Blood cx ++. Stool OB++ 09/07: tolerating g tube feeds, remains on chronic trach, no bleeding reported. Objective Objective Current Medications Medications (Trade) Dose Ordered Sig/Xochilt Route PRN Reason Start Time Stop Time Status Last Admin Dose Admin Acetaminophen (Tylenol) 650 mg DAILYPRN PRN GT prior to wound treatment 09/02/18 20:45 10/02/18 20:44 Acetaminophen (Tylenol) 650 mg Q6H PRN GT Mild Pain/Temp > 100.0 09/02/18 20:45 10/02/18 20:44 Atorvastatin Calcium (Lipitor) 40 mg BEDTIME GT 09/02/18 21:00 10/02/18 20:59 09/06/18 22:50 Bisacodyl (Dulcolax) 10 mg DAILYPRN PRN RECTAL Constipation 09/02/18 20:45 10/02/18 20:44 Dextrose (Dextrose 50%) 25 ml Q30M PRN IV Hypoglycemia 09/02/18 20:45 10/02/18 20:44 Dextrose (Dextrose 50%) 50 ml Q30M PRN IV Hypoglycemia 09/02/18 20:45 10/02/18 20:44 Famotidine (Pepcid) 20 mg DAILY GT 09/03/18 09:00 10/03/18 08:59 09/07/18 09:00 Insulin Aspart (NovoLOG) Q6HR SUBQ 09/03/18 00:00 10/02/18 20:59 09/07/18 06:49 Lactulose (Cephulac) 20 gm DAILYPRN PRN ORAL constipation 09/02/18 20:45 10/02/18 20:44 Meropenem 500 mg/ Sodium Chloride 55 ml @ 110 mls/hr Q24H IVPB 09/03/18 21:00 09/08/18 20:59 09/06/18 22:50 Midodrine (Pro-Amatine) 10 mg THREE TIMES A DAY ORAL 09/02/18 20:45 10/02/18 20:44 09/07/18 11:06 Sodium Phosphate (Fleet's Sodium Phosl Enema) 133 ml DAILYPRN PRN RECTAL constipation 09/02/18 20:45 10/02/18 20:44 Vancomycin HCl (Vanco rx to dose) 1 ea DAILY PRN MISC Per rx protocol 09/03/18 14:30 10/03/18 14:29 Vitamin B Complex/ Vit C/Folic Acid (Nephrovite) 1 tab DAILY ORAL 09/03/18 09:00 10/03/18 08:59 09/07/18 11:07 Last 24 Hour Vital Signs Date Time Temp Pulse Resp B/P (MAP) Pulse Ox O2 Delivery O2 Flow Rate FiO2 09/07/18 13:07 97 T-Piece 8.0 30 09/07/18 08:00 98.0 89 17 118/66 (83) 98 09/07/18 07:00 97 T-Piece 8.0 30 09/07/18 04:00 98.3 98 15 98/69 (79) 99 09/07/18 01:12 99 T-Piece 8.0 30 09/07/18 00:00 98.2 87 15 113/64 (80) 97 09/06/18 21:00 T-piece 8.0 09/06/18 20:00 98.9 79 15 108/60 (76) 100 09/06/18 19:31 98 T-Piece 8.0 30 09/06/18 16:00 98.6 88 18 126/59 (81) 100 09/06/18 12:43 98 T-Piece 8.0 30 09/06/18 12:00 98.1 92 18 121/56 (77) 100 09/06/18 09:00 T-piece 8.0 09/06/18 08:00 97.7 90 17 103/65 (78) 99 09/06/18 07:34 100 T-Piece 8.0 30 09/06/18 04:00 97.2 85 16 100/62 (75) 100 09/06/18 01:53 98 T-Piece 8.0 30 09/06/18 00:00 98.8 99 15 105/69 (81) 100 09/05/18 21:00 T-piece 8.0 09/05/18 20:05 98 20 99 T-Piece 8.0 30 09/05/18 20:05 99 T-Piece 8.0 30 09/05/18 20:00 98.4 100 14 109/71 (84) 100 09/05/18 16:00 98.8 106 19 104/69 (81) 97 Intake and Output 09/06/18 09/07/18 19:00 07:00 Intake Total 270 ml 240 ml Output Total 50 ml Balance 270 ml 190 ml Intake Free Water 150 ml 150 ml IV Total 50 ml Tube Feeding 120 ml 40 ml Estimated Blood Loss 50 ml Labs Test 09/05/18 04:45 09/05/18 16:00 09/05/18 18:32 09/06/18 06:30 White Blood Count 11.5 K/UL (4.8-10.8) 12.4 K/UL (4.8-10.8) 10.8 K/UL (4.8-10.8) Red Blood Count 3.13 M/UL (4.70-6.10) 3.29 M/UL (4.70-6.10) 3.28 M/UL (4.70-6.10) Hemoglobin 9.8 G/DL (14.2-18.0) 10.1 G/DL (14.2-18.0) 10.3 G/DL (14.2-18.0) Hematocrit 29.8 % (42.0-52.0) 30.2 % (42.0-52.0) 31.8 % (42.0-52.0) Mean Corpuscular Volume 95 FL (80-99) 92 FL (80-99) 97 FL (80-99) Mean Corpuscular Hemoglobin 31.3 PG (27.0-31.0) 30.6 PG (27.0-31.0) 31.4 PG (27.0-31.0) Mean Corpuscular Hemoglobin Concent 32.9 G/DL (32.0-36.0) 33.3 G/DL (32.0-36.0) 32.4 G/DL (32.0-36.0) Red Cell Distribution Width 20.8 % (11.6-14.8) 19.4 % (11.6-14.8) 20.1 % (11.6-14.8) Platelet Count 413 K/UL (150-450) 401 K/UL (150-450) 394 K/UL (150-450) Mean Platelet Volume 6.6 FL (6.5-10.1) 5.9 FL (6.5-10.1) 6.4 FL (6.5-10.1) Neutrophils (%) (Auto) 63.2 % (45.0-75.0) 61.7 % (45.0-75.0) 59.8 % (45.0-75.0) Lymphocytes (%) (Auto) 19.4 % (20.0-45.0) 25.1 % (20.0-45.0) 22.1 % (20.0-45.0) Monocytes (%) (Auto) 9.8 % (1.0-10.0) 6.8 % (1.0-10.0) 9.7 % (1.0-10.0) Eosinophils (%) (Auto) 6.1 % (0.0-3.0) 4.5 % (0.0-3.0) 6.9 % (0.0-3.0) Basophils (%) (Auto) 1.5 % (0.0-2.0) 1.8 % (0.0-2.0) 1.5 % (0.0-2.0) Sodium Level 142 MMOL/L (136-145) 143 MMOL/L (136-145) Potassium Level 2.9 MMOL/L (3.5-5.1) 3.3 MMOL/L (3.5-5.1) Chloride Level 100 MMOL/L (98-107) 100 MMOL/L (98-107) Carbon Dioxide Level 30 MMOL/L (21-32) 27 MMOL/L (21-32) Anion Gap 12 mmol/L (5-15) 16 mmol/L (5-15) Blood Urea Nitrogen 33 mg/dL (7-18) 49 mg/dL (7-18) Creatinine 3.7 MG/DL (0.55-1.30) 5.6 MG/DL (0.55-1.30) Estimat Glomerular Filtration Rate 16.4 mL/min (>60) 10.2 mL/min (>60) Glucose Level 145 MG/DL (74-106) 135 MG/DL (74-106) Calcium Level 9.5 MG/DL (8.5-10.1) 10.1 MG/DL (8.5-10.1) Phosphorus Level 3.1 MG/DL (2.5-4.9) 5.2 MG/DL (2.5-4.9) Magnesium Level 2.2 MG/DL (1.8-2.4) 2.5 MG/DL (1.8-2.4) Total Bilirubin 0.5 MG/DL (0.2-1.0) 0.5 MG/DL (0.2-1.0) Aspartate Amino Transf (AST/SGOT) 25 U/L (15-37) 21 U/L (15-37) Alanine Aminotransferase (ALT/SGPT) 26 U/L (12-78) 23 U/L (12-78) Alkaline Phosphatase 185 U/L (46-116) 200 U/L (46-116) C-Reactive Protein, Quantitative 6.3 mg/dL (0.00-0.90) 6.0 mg/dL (0.00-0.90) Total Protein 9.3 G/DL (6.4-8.2) 9.4 G/DL (6.4-8.2) Albumin 3.2 G/DL (3.4-5.0) 3.2 G/DL (3.4-5.0) Globulin 6.1 g/dL 6.2 g/dL Albumin/Globulin Ratio 0.5 (1.0-2.7) 0.5 (1.0-2.7) Random Vancomycin Level 17.2 ug/mL Hepatitis B Surface Antigen Negative (NEGATIVE) Stool Occult Blood Positive (NEGATIVE) Test 09/07/18 07:11 Random Vancomycin Level 14.8 ug/mL Height (Feet): 5 Height (Inches): 5.00 Weight (Pounds): 126 Objective Objective Physical Exam GENERAL: NAD VITALS: Have been reviewed HEAD AND NECK: Trach in place , on T-bar , Atraumatic and normocephalic. CHEST: Diffuse bronchial breathing sounds. HEART: S1 and S2. Regular rate and rhythm. ABDOMEN: Soft. No organomegaly, GT++ NEUROLOGY: Awake, alert and oriented x1. MS: Left arm AVF-well dressed , diffuse atrophied musculature Rosario Mcduffie NP Sep 07, 2018 14:54
--- NOTE | 2018-09-07 15:49 | Infectious Diseases Prog Note ---
Assessment/Plan Problems: (1) Sepsis Assessment & Plan: with leukocytosis, source ? HD catheter ? continue meropenem for two weeks , stop vancomycin empirically , had his HD catheter removed , since old and has not been used (2) AV shunt malfunction Assessment & Plan: had surgical revision today by vascular surgery, and HD catheter removal, vascular is following (3) Diabetes Assessment & Plan: recommend tight glycemic control to keep blood glucose between 100-140 (4) Leukocytosis Assessment & Plan: most likely due to old HD catheter with infection doubt Pneumonia with no real infiltrates and no tracheal secretions , continue meropenem for two weeks , stop vancomycin empirically 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 , no need to treat at this point , will monitor clinically Subjective ROS Limited/Unobtainable: Yes Allergies: Coded Allergies: No Known Allergies (Unverified , 04/14/16) Subjective He was resting in bed comfortable, had revision of his left arm fistula, and his old HD catheter was removed , more alert , no significant secretions Objective Vital Signs Last 24 Hour Vital Signs Date Time Temp Pulse Resp B/P (MAP) Pulse Ox O2 Delivery O2 Flow Rate FiO2 09/07/18 13:07 97 T-Piece 8.0 30 09/07/18 08:00 98.0 89 17 118/66 (83) 98 09/07/18 07:00 97 T-Piece 8.0 30 09/07/18 04:00 98.3 98 15 98/69 (79) 99 09/07/18 01:12 99 T-Piece 8.0 30 09/07/18 00:00 98.2 87 15 113/64 (80) 97 09/06/18 21:00 T-piece 8.0 09/06/18 20:00 98.9 79 15 108/60 (76) 100 09/06/18 19:31 98 T-Piece 8.0 30 09/06/18 16:00 98.6 88 18 126/59 (81) 100 Height (Feet): 5 Height (Inches): 5.00 Weight (Pounds): 126 General Appearance: no acute distress, cachetic HEENT: normocephalic, atraumatic, anicteric, mucous membranes moist, PERRL Respiratory/Chest: chest wall non-tender, normal breath sounds, no respiratory distress, no accessory muscle use, decreased breath sounds Cardiovascular: normal peripheral pulses, normal rate, regular rhythm, no JVD Abdomen: normal bowel sounds, soft, non tender, no organomegaly, non distended , no mass, no scars Genitourinary: normal external genitalia Extremities: no cyanosis, no clubbing Skin: no rash, no ulcers Neurologic/Psychiatric: alert, unresponsiveness Lymphatic: no neck adenopathy, no groin adenopathy Musculoskeletal: normal muscle bulk, no effusion Laboratory Tests Test 09/07/18 07:11 Random Vancomycin Level 14.8 ug/mL Current Medications Medications (Trade) Dose Ordered Sig/Xochilt Route PRN Reason Start Time Stop Time Status Last Admin Dose Admin Acetaminophen (Tylenol) 650 mg DAILYPRN PRN GT prior to wound treatment 09/02/18 20:45 10/02/18 20:44 Acetaminophen (Tylenol) 650 mg Q6H PRN GT Mild Pain/Temp > 100.0 09/02/18 20:45 10/02/18 20:44 Atorvastatin Calcium (Lipitor) 40 mg BEDTIME GT 09/02/18 21:00 10/02/18 20:59 09/06/18 22:50 Bisacodyl (Dulcolax) 10 mg DAILYPRN PRN RECTAL Constipation 09/02/18 20:45 10/02/18 20:44 Dextrose (Dextrose 50%) 25 ml Q30M PRN IV Hypoglycemia 09/02/18 20:45 10/02/18 20:44 Dextrose (Dextrose 50%) 50 ml Q30M PRN IV Hypoglycemia 09/02/18 20:45 10/02/18 20:44 Famotidine (Pepcid) 20 mg DAILY GT 09/03/18 09:00 10/03/18 08:59 09/07/18 09:00 Insulin Aspart (NovoLOG) Q6HR SUBQ 09/03/18 00:00 10/02/18 20:59 09/07/18 06:49 Lactulose (Cephulac) 20 gm DAILYPRN PRN ORAL constipation 09/02/18 20:45 10/02/18 20:44 Meropenem 500 mg/ Sodium Chloride 55 ml @ 110 mls/hr Q24H IVPB 09/03/18 21:00 09/08/18 20:59 09/06/18 22:50 Midodrine (Pro-Amatine) 10 mg THREE TIMES A DAY ORAL 09/02/18 20:45 10/02/18 20:44 09/07/18 11:06 Sodium Phosphate (Fleet's Sodium Phosl Enema) 133 ml DAILYPRN PRN RECTAL constipation 09/02/18 20:45 10/02/18 20:44 Vitamin B Complex/ Vit C/Folic Acid (Nephrovite) 1 tab DAILY ORAL 09/03/18 09:00 10/03/18 08:59 09/07/18 11:07 Devika Gaitan M.D. Sep 07, 2018 15:49
[2018-09-07 16:00] VITALS: BP 123/74
--- NOTE | 2018-09-07 16:49 | Surgery Progress Note ---
Surgery Progress Note Subjective Additional Comments afebrile, HD stable, leukocytosis resolved, exam stable. Objective Last 24 Hour Vital Signs Date Time Temp Pulse Resp B/P (MAP) Pulse Ox O2 Delivery O2 Flow Rate FiO2 09/07/18 16:00 98.2 88 18 123/74 (90) 98 09/07/18 13:07 97 T-Piece 8.0 30 09/07/18 12:00 98.3 92 18 126/69 (88) 99 09/07/18 08:00 98.0 89 17 118/66 (83) 98 09/07/18 07:00 97 T-Piece 8.0 30 09/07/18 04:00 98.3 98 15 98/69 (79) 99 09/07/18 01:12 99 T-Piece 8.0 30 09/07/18 00:00 98.2 87 15 113/64 (80) 97 09/06/18 21:00 T-piece 8.0 09/06/18 20:00 98.9 79 15 108/60 (76) 100 09/06/18 19:31 98 T-Piece 8.0 30 I&O Intake and Output 09/06/18 09/07/18 19:00 07:00 Intake Total 270 ml 240 ml Output Total 50 ml Balance 270 ml 190 ml Intake Free Water 150 ml 150 ml IV Total 50 ml Tube Feeding 120 ml 40 ml Estimated Blood Loss 50 ml Dressing: dry Wound: clean Cardiovascular: RSR Respiratory: clear Abdomen: soft, non-tender, present bowel sounds Extremities: no cyanosis Laboratory Tests Test 09/07/18 07:11 Random Vancomycin Level 14.8 ug/mL Plan Problems: (1) Fever (2) Anemia (3) Hyperglycemia (4) Aspiration pneumonia (5) Renal insufficiency (6) Encephalopathy (7) Pneumonia (8) Elevated troponin (9) Heel sore (10) History of CVA (cerebrovascular accident) (11) G-tube site cellulitis (12) Dehydration (13) Electrolyte imbalance (14) GI bleed (15) Dialysis patient (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 Base of wound with trace slough, surrounding erythema.Epithelial scarring from previous wounds noted periwound. Hyperpigmentation scarring noted to sacrum with area in midline that is slowly opening incontinence associated dermatitis with skin breakdown to perianal area and scrotal area. Non-blanchable erythema R heel with fluctuance. Dry scar noted centrally. L heel boggy-pink and blanchable. Skin dryness noted and Numerous scratch duckworth noted to L upper ext, abd and upper thighs. Tx.Plan: Cleanse R ischial wound with Saline. Apply Therahoney. Cover with Optifoam drsg. Change every 3 days and prn. Apply Cavilon To L ear daily. Apply Triad Paste to cleft of buttocks with each perineal care. Apply Cavilon Skin Barrier to both heels. Cover each heel with Optifoam drsg. Change every 7 days and prn. Reposition at least every 2hours or as tolerated. Off-load heels with pillow. (19) Fistula, arteriovenous, acquired (20) Diabetes (21) Sepsis Assessment & Plan: catheter removed by vascular on IV abx as per ID cont with current care will follow with recs thank you (22) UTI (urinary tract infection) (23) AV shunt malfunction (24) Leukocytosis (25) ESRD (end stage renal disease) on dialysis (26) Anemia in chronic kidney disease (CKD) Skyler Salmon Sep 07, 2018 16:49
--- NOTE | 2018-09-07 16:50 | NUR ---
NURSE NOTES: Patient noted to be scratching. Dr. Olivarez notified. New order received.
[2018-09-07] MEDS ORDERED: DiphenhydrAMINE 50mg/ml Inj IVP PRN (17:00)
--- NOTE | 2018-09-07 17:07 | Nephrology Progress Note ---
Assessment/Plan Problem List: (1) ESRD (end stage renal disease) on dialysis (2) Sepsis (3) Anemia in chronic kidney disease (CKD) Assessment Sepsis: Source Permacath and or Lung ESRD Severe Anemia Plan Remove permacath, per Vasc surg done K supplement DC Zimmerman antibiotics: One gram Vanco and 120 mg Genta after BCs- further AbRx per ID vascular procedure 48 hours after negative BC results monitor WBCs HD via current functional fistula as needed- ordered 09/04 next 05/10 CXR noted BC per orders suction frequently Subjective ROS Limited/Unobtainable: No Objective Objective Last 24 Hour Vital Signs Date Time Temp Pulse Resp B/P (MAP) Pulse Ox O2 Delivery O2 Flow Rate FiO2 09/07/18 16:00 98.2 88 18 123/74 (90) 98 09/07/18 13:07 97 T-Piece 8.0 30 09/07/18 12:00 98.3 92 18 126/69 (88) 99 09/07/18 08:00 98.0 89 17 118/66 (83) 98 09/07/18 07:00 97 T-Piece 8.0 30 09/07/18 04:00 98.3 98 15 98/69 (79) 99 09/07/18 01:12 99 T-Piece 8.0 30 09/07/18 00:00 98.2 87 15 113/64 (80) 97 09/06/18 21:00 T-piece 8.0 09/06/18 20:00 98.9 79 15 108/60 (76) 100 09/06/18 19:31 98 T-Piece 8.0 30 Intake and Output 09/06/18 09/07/18 19:00 07:00 Intake Total 270 ml 240 ml Output Total 50 ml Balance 270 ml 190 ml Intake Free Water 150 ml 150 ml IV Total 50 ml Tube Feeding 120 ml 40 ml Estimated Blood Loss 50 ml Laboratory Tests 09/07/18 07:11: Random Vancomycin Level 14.8 Height (Feet): 5 Height (Inches): 5.00 Weight (Pounds): 126 General Appearance: no apparent distress Cardiovascular: normal rate Respiratory/Chest: decreased breath sounds Abdomen: soft Evgeny Burton MD Sep 07, 2018 17:07
--- NOTE | 2018-09-07 17:53 | NUR ---
NURSE NOTES: Patient noted tugging at trach. RN reoriented patient multiple times, repositioned patient, and tried using diversional activities such as television, but patient kept grabbing trach site. Dr. Olivarez notified. New order for bilateral soft wrist restraints received. Bilateral soft wrist restraints applies. Will continue to monitor.
--- NOTE | 2018-09-07 19:15 | Consultation ---
DATE OF CONSULTATION: 09/07/2018 CONSULTING PHYSICIAN: Juan Nixon M.D. REFERRING PHYSICIAN: Hever Olivarez M.D. CHIEF COMPLAINT: Anemia and dysphagia. HISTORY OF PRESENT ILLNESS: Most of the history per chart. The patient is a very unfortunate 68-year-old male with multiple medical problems including history of chronic respiratory failure, dysphagia with G-tube, end-stage renal disease on hemodialysis presented to the hospital with malfunctioning dialysis catheter. GI consultation was requested for evaluation of anemia and evaluation of the G-tube function. PAST MEDICAL HISTORY: 1. History of CVA. 2. End-stage renal disease on hemodialysis. 3. Dysphagia with G-tube. 4. Encephalopathy. 5. History of decubital ulcerations. 6. Anemia. ALLERGIES: No known drug allergies. MEDICATIONS: Please see medication reconciliation list. PAST SURGICAL HISTORY: Tracheostomy, AV shunt placement for dialysis. REVIEW OF SYSTEMS: Unable to obtain. FAMILY HISTORY: Noncontributory. SOCIAL HISTORY: Currently lives in a long-term. PHYSICAL EXAMINATION: VITAL SIGNS: Temperature is 98, pulse is 89, respirations 17, blood pressure . HEENT: Normocephalic and atraumatic. Pale conjunctivae. NECK: Supple with trachea in place. LUNGS: Decreased breath sounds bilaterally diffusely on the supine exam. CARDIOVASCULAR: Regular rate and rhythm. Plus S1 and S2. ABDOMEN: Positive bowel sounds. Soft, nontender. G-tube in place. No rebound. No guarding. No peritoneal sign. EXTREMITIES: No cyanosis. No clubbing. LABORATORY DATA: Sodium 143, potassium 3.3, BUN 45, creatinine 5.6. CBC white count 10, hemoglobin 10, hematocrit 31, platelet count is 394. ASSESSMENT: The patient is a 68-year-old male with chronic respiratory problems, dialysis patient, dysphagia, CVA. PLAN: At this time, there is no need for endoscopy and colonoscopy. Hemoglobin and hematocrit seems to be stable most probably secondary to chronic renal disease. We will monitor hemoglobin and hematocrit. Transfuse as needed. Send the stool for OB. Do anemia workup. GI procedures if absolutely needed. Dose of G-tube feeding, the patient is currently on Nephro at 40 mL an hour. We will continue. I want to thank Dr. Olivarez for this kind referral. Juan Nixon M.D. DR: BECK JOB#: [id number] CC: Hever Olivarez M.D.; Fax#: [phone]
--- NOTE | 2018-09-07 19:26 | NUR ---
HAND-OFF: Report given to AMBROSE Colin.
--- NOTE | 2018-09-07 19:30 | NUR ---
NURSE NOTES: Received patient in bed. Patient awake, AAO x 0, nonverbal. Patient has T-piece and trach intact, 8L oxygen and FiO2 30%. G tube feeding intact for Nepro 1.8 at 40ml/hr. No acute distress noted at this time. Bed locked, lowest position, alarms on, side rails x 2, call light within reach. Will continue to monitor.
--- NOTE | 2018-09-07 19:39 | NUR ---
CASE MANAGEMENT: REVIEW SI: MALFUNCTIONING A-V FISTULA . ESRD ON DIALYSIS REVISION OF L ARM A-V FISTULA 09/04 T 98.2 HR 88 RR 18 BP 123/74 SAT 98% T-PIECE FIO2 30 IS: MEROPENEM IV Q24HR MIDODRINE PO TID HD PRN MED/SURG STATUS DCP: PATIENT IS FROM [facility]
[2018-09-07 20:00] VITALS: BP 108/80
[2018-09-07] MEDS: Atorvastatin 20mg tab GT SCH (21:56)
[2018-09-07] MEDS: Meropenem 500 MG in NS 55 ML IVPB SCH (21:58)
[2018-09-08] VITALS: BP 126/72
[2018-09-08 04:00] VITALS: BP 129/67
[2018-09-08] MEDS: NovoLOG Insulin Flexpen SUBQ SCH ×2 (05:49→12:22)
--- NOTE | 2018-09-08 07:08 | NUR ---
HAND-OFF: Report given to AMBROSE Restrepo.
--- NOTE | 2018-09-08 07:30 | NUR ---
NURSE NOTES: HANDOFF RECEIVED FROM AMBROSE MADERA. PATIENT HAS TRACH WITH F102 RUNNING AT 9 LITERS. PATIENT ASLEEP IN BED, CALL LIGHT IN REACH, BED IN LOWEST AND LOCKED POSITION. RIGHT ANKLE IV CLEAN, DRY AND INTACT. SALINE LOCKED.
[2018-09-08 08:00] VITALS: BP 108/66
[2018-09-08] MEDS: Nephrovite tab (Rena-Vite) ORAL SCH (09:01)
[2018-09-08] MEDS: Midodrine 10mg tab ORAL SCH ×2 (09:01→12:29)
--- NOTE | 2018-09-08 11:13 | General Progress Note ---
Assessment/Plan Status: stable Assessment/Plan: S: poor historian O: appears comfortable, no sob, T-piece in place. Restraint in place HEAD AND NECK: Trach in place , on T-piece , Atraumatic and normocephalic. CHEST: Diffuse bronchial breathing sounds. HEART: S1 and S2. Regular rate and rhythm. ABDOMEN: Soft. No organomegaly, NEUROLOGY: Awake, alert and oriented x1. MS: Left arm AVF-well dressed , diffuse atrophied musculature, post removal of rigth perm Cath Meds: Reviewed and reconciled , including Meropenem and Vanco ASSESSMENT: 1. Left sided AVF Malfunction 2. chronic encephalopathy. 3. Leukocytosis: No evidence of active acute infection 3. End-stage renal disease, on hemodialysis. 4. Hypertension. 5. Diabetes. 6. GI and DVT prophylaxis. 7. Hypertension 8. Acute Anemia 9. Episodes of agitation and pulling lines/tubes PLAN OF CARE: Nephro ID notes reviewed Agree with empirical abx Post Removal of Perm-Cath , cultures are reviewed ok to DC once clear by ID Subjective Allergies: Coded Allergies: No Known Allergies (Unverified , 04/14/16) Objective Last 24 Hour Vital Signs Date Time Temp Pulse Resp B/P (MAP) Pulse Ox O2 Delivery O2 Flow Rate FiO2 09/08/18 09:00 T-piece 9.0 09/08/18 08:02 100 T-Piece 8.0 30 09/08/18 08:00 98.8 93 22 108/66 (80) 100 09/08/18 04:00 97.2 79 20 129/67 (87) 96 09/08/18 01:00 97 T-Piece 8.0 30 09/08/18 00:00 98.2 89 19 126/72 (90) 96 09/07/18 21:00 T-piece 9.0 09/07/18 20:00 97.9 88 19 108/80 (89) 98 09/07/18 20:00 96 T-Piece 8.0 30 09/07/18 16:00 98.2 88 18 123/74 (90) 98 09/07/18 13:07 97 T-Piece 8.0 30 09/07/18 12:00 98.3 92 18 126/69 (88) 99 Intake and Output 09/07/18 09/08/18 19:00 07:00 Intake Total 40 ml 635 ml Balance 40 ml 635 ml Intake Free Water 180 ml IV Total 55 ml Tube Feeding 40 ml 400 ml # Voids 2 # Bowel Movements 2 Height (Feet): 5 Height (Inches): 5.00 Weight (Pounds): 126 Hever Olivarez MD Sep 08, 2018 11:13
--- NOTE | 2018-09-08 11:19 | General Progress Note ---
Assessment/Plan Status: stable Assessment/Plan: 1. History of CVA. 2. End-stage renal disease on hemodialysis. 3. Dysphagia with G-tube. 4. Encephalopathy. 5. History of decubital ulcerations. 6. Anemia stable H&H fu stool ob bowel regimen GI procedures on hold Subjective ROS Limited/Unobtainable: Yes Allergies: Coded Allergies: No Known Allergies (Unverified , 04/14/16) Objective Last 24 Hour Vital Signs Date Time Temp Pulse Resp B/P (MAP) Pulse Ox O2 Delivery O2 Flow Rate FiO2 09/08/18 09:00 T-piece 9.0 09/08/18 08:02 100 T-Piece 8.0 30 09/08/18 08:00 98.8 93 22 108/66 (80) 100 09/08/18 04:00 97.2 79 20 129/67 (87) 96 09/08/18 01:00 97 T-Piece 8.0 30 09/08/18 00:00 98.2 89 19 126/72 (90) 96 09/07/18 21:00 T-piece 9.0 09/07/18 20:00 97.9 88 19 108/80 (89) 98 09/07/18 20:00 96 T-Piece 8.0 30 09/07/18 16:00 98.2 88 18 123/74 (90) 98 09/07/18 13:07 97 T-Piece 8.0 30 09/07/18 12:00 98.3 92 18 126/69 (88) 99 Intake and Output 09/07/18 09/08/18 19:00 07:00 Intake Total 40 ml 635 ml Balance 40 ml 635 ml Intake Free Water 180 ml IV Total 55 ml Tube Feeding 40 ml 400 ml # Voids 2 # Bowel Movements 2 Height (Feet): 5 Height (Inches): 5.00 Weight (Pounds): 126 General Appearance: no apparent distress EENT: normal ENT inspection Neck: supple Cardiovascular: normal rate Respiratory/Chest: decreased breath sounds Abdomen: normal bowel sounds, non tender, soft Extremities: non-tender Juan Nixon MD Sep 08, 2018 11:19
[2018-09-08 12:00] VITALS: BP 111/68
--- NOTE | 2018-09-08 12:33 | Nephrology Progress Note ---
Assessment/Plan Problem List: (1) ESRD (end stage renal disease) on dialysis (2) Sepsis (3) Anemia in chronic kidney disease (CKD) Assessment Sepsis: Source Permacath and or Lung ESRD Severe Anemia Plan Remove permacath, per Vasc surg done K supplement DC Zimmerman antibiotics: One gram Vanco and 120 mg Genta after BCs- further AbRx per ID vascular procedure 48 hours after negative BC results monitor WBCs HD via current functional fistula as needed- ordered 09/04 next 05/10 CXR noted BC per orders suction frequently Subjective ROS Limited/Unobtainable: Yes Objective Objective Last 24 Hour Vital Signs Date Time Temp Pulse Resp B/P (MAP) Pulse Ox O2 Delivery O2 Flow Rate FiO2 09/08/18 09:00 T-piece 9.0 09/08/18 08:02 100 T-Piece 8.0 30 09/08/18 08:00 98.8 93 22 108/66 (80) 100 09/08/18 04:00 97.2 79 20 129/67 (87) 96 09/08/18 01:00 97 T-Piece 8.0 30 09/08/18 00:00 98.2 89 19 126/72 (90) 96 09/07/18 21:00 T-piece 9.0 09/07/18 20:00 97.9 88 19 108/80 (89) 98 09/07/18 20:00 96 T-Piece 8.0 30 09/07/18 16:00 98.2 88 18 123/74 (90) 98 09/07/18 13:07 97 T-Piece 8.0 30 Intake and Output 09/07/18 09/08/18 19:00 07:00 Intake Total 40 ml 635 ml Balance 40 ml 635 ml Intake Free Water 180 ml IV Total 55 ml Tube Feeding 40 ml 400 ml # Voids 2 # Bowel Movements 2 Height (Feet): 5 Height (Inches): 5.00 Weight (Pounds): 126 General Appearance: no apparent distress Cardiovascular: normal rate Respiratory/Chest: lungs clear Abdomen: soft Objective no change Evgeny Burton MD Sep 08, 2018 12:33
--- NOTE | 2018-09-08 13:18 | Surgery Progress Note ---
Surgery Progress Note Subjective Additional Comments no acute events Objective Last 24 Hour Vital Signs Date Time Temp Pulse Resp B/P (MAP) Pulse Ox O2 Delivery O2 Flow Rate FiO2 09/08/18 12:00 98.5 95 20 111/68 (82) 100 09/08/18 09:00 T-piece 9.0 09/08/18 08:02 100 T-Piece 8.0 30 09/08/18 08:00 98.8 93 22 108/66 (80) 100 09/08/18 04:00 97.2 79 20 129/67 (87) 96 09/08/18 01:00 97 T-Piece 8.0 30 09/08/18 00:00 98.2 89 19 126/72 (90) 96 09/07/18 21:00 T-piece 9.0 09/07/18 20:00 97.9 88 19 108/80 (89) 98 09/07/18 20:00 96 T-Piece 8.0 30 09/07/18 16:00 98.2 88 18 123/74 (90) 98 I&O Intake and Output 09/07/18 09/08/18 19:00 07:00 Intake Total 40 ml 635 ml Balance 40 ml 635 ml Intake Free Water 180 ml IV Total 55 ml Tube Feeding 40 ml 400 ml # Voids 2 # Bowel Movements 2 Dressing: dry Wound: clean Cardiovascular: RSR Respiratory: decreased breath sounds Abdomen: soft, present bowel sounds, other, non-distended Extremities: no cyanosis, other Plan Problems: (1) Fever (2) Anemia (3) Hyperglycemia (4) Aspiration pneumonia (5) Renal insufficiency (6) Encephalopathy (7) Pneumonia (8) Elevated troponin (9) Heel sore (10) History of CVA (cerebrovascular accident) (11) G-tube site cellulitis (12) Dehydration (13) Electrolyte imbalance (14) GI bleed (15) Dialysis patient (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 Base of wound with trace slough, surrounding erythema.Epithelial scarring from previous wounds noted periwound. Hyperpigmentation scarring noted to sacrum with area in midline that is slowly opening incontinence associated dermatitis with skin breakdown to perianal area and scrotal area. Non-blanchable erythema R heel with fluctuance. Dry scar noted centrally. L heel boggy-pink and blanchable. Skin dryness noted and Numerous scratch duckworth noted to L upper ext, abd and upper thighs. Tx.Plan: Cleanse R ischial wound with Saline. Apply Therahoney. Cover with Optifoam drsg. Change every 3 days and prn. Apply Cavilon To L ear daily. Apply Triad Paste to cleft of buttocks with each perineal care. Apply Cavilon Skin Barrier to both heels. Cover each heel with Optifoam drsg. Change every 7 days and prn. Reposition at least every 2hours or as tolerated. Off-load heels with pillow. (19) Fistula, arteriovenous, acquired (20) Diabetes (21) Sepsis Assessment & Plan: catheter removed by vascular on IV abx as per ID cont with current care will follow with recs thank you (22) UTI (urinary tract infection) (23) AV shunt malfunction (24) Leukocytosis (25) ESRD (end stage renal disease) on dialysis (26) Anemia in chronic kidney disease (CKD) Skyler Salmon Sep 08, 2018 13:18
--- NOTE | 2018-09-08 13:43 | NUR ---
NURSE NOTES: DR TANNER DID ROUNDS AND SAW PATIENT, FOLLOWED MD ORDERS TO DISCHARGE PATIENT TO SNF.
--- NOTE | 2018-09-08 14:11 | Infectious Diseases Prog Note ---
Assessment/Plan Problems: (1) Sepsis Assessment & Plan: with leukocytosis, source ? HD catheter ? continue meropenem for two weeks , had his HD catheter removed , since old and has not been used .repeated blood culture is negative (2) AV shunt malfunction Assessment & Plan: had surgical revision by vascular surgery, and HD catheter removal, vascular is following , continue antibiotics for two weeks (3) Diabetes Assessment & Plan: recommend tight glycemic control to keep blood glucose between 100-140 (4) Leukocytosis Assessment & Plan: most likely due to old HD catheter with infection doubt Pneumonia with no real infiltrates and no tracheal secretions , tracheal culture grew colonizers only, continue meropenem for two weeks . 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 , no need to treat at this point , will monitor clinically Subjective ROS Limited/Unobtainable: Yes Allergies: Coded Allergies: No Known Allergies (Unverified , 04/14/16) Subjective He was resting in bed comfortable, had revision of his left arm fistula, and his old HD catheter was removed , more alert , no significant secretions Objective Vital Signs Last 24 Hour Vital Signs Date Time Temp Pulse Resp B/P (MAP) Pulse Ox O2 Delivery O2 Flow Rate FiO2 09/08/18 13:40 99 T-Piece 8.0 30 09/08/18 12:00 98.5 95 20 111/68 (82) 100 09/08/18 09:00 T-piece 9.0 09/08/18 08:02 100 T-Piece 8.0 30 09/08/18 08:00 98.8 93 22 108/66 (80) 100 09/08/18 04:00 97.2 79 20 129/67 (87) 96 09/08/18 01:00 97 T-Piece 8.0 30 09/08/18 00:00 98.2 89 19 126/72 (90) 96 09/07/18 21:00 T-piece 9.0 09/07/18 20:00 97.9 88 19 108/80 (89) 98 09/07/18 20:00 96 T-Piece 8.0 30 09/07/18 16:00 98.2 88 18 123/74 (90) 98 Height (Feet): 5 Height (Inches): 5.00 Weight (Pounds): 116 General Appearance: no acute distress, cachetic HEENT: normocephalic, atraumatic, anicteric, mucous membranes moist, PERRL Respiratory/Chest: chest wall non-tender, lungs clear, normal breath sounds, no respiratory distress, no accessory muscle use Cardiovascular: normal peripheral pulses, normal rate, regular rhythm, no gallop/murmur, no JVD Abdomen: normal bowel sounds, soft, non tender, no organomegaly, non distended , no mass, no scars Extremities: no cyanosis, no clubbing Skin: no rash, no lesions, no ulcers Neurologic/Psychiatric: alert, responsive Lymphatic: no neck adenopathy, no groin adenopathy Musculoskeletal: normal muscle bulk, no effusion Microbiology Date/Time Source Procedure Growth Status 09/06/18 06:30 Blood Blood Culture - Preliminary NO GROWTH AFTER 24 HOURS Resulted 09/06/18 06:15 Blood Blood Culture - Preliminary NO GROWTH AFTER 24 HOURS Resulted Current Medications Medications (Trade) Dose Ordered Sig/Xochilt Route PRN Reason Start Time Stop Time Status Last Admin Dose Admin Acetaminophen (Tylenol) 650 mg DAILYPRN PRN GT prior to wound treatment 09/02/18 20:45 10/02/18 20:44 Acetaminophen (Tylenol) 650 mg Q6H PRN GT Mild Pain/Temp > 100.0 09/02/18 20:45 10/02/18 20:44 Atorvastatin Calcium (Lipitor) 40 mg BEDTIME GT 09/02/18 21:00 10/02/18 20:59 09/07/18 21:56 Bisacodyl (Dulcolax) 10 mg DAILYPRN PRN RECTAL Constipation 09/02/18 20:45 10/02/18 20:44 Dextrose (Dextrose 50%) 25 ml Q30M PRN IV Hypoglycemia 09/02/18 20:45 10/02/18 20:44 Dextrose (Dextrose 50%) 50 ml Q30M PRN IV Hypoglycemia 09/02/18 20:45 10/02/18 20:44 Diphenhydramine HCl (Benadryl) 25 mg Q6H PRN IVP Itching 09/07/18 17:00 10/07/18 16:59 09/07/18 17:02 Famotidine (Pepcid) 20 mg DAILY GT 09/03/18 09:00 10/03/18 08:59 09/08/18 09:01 Insulin Aspart (NovoLOG) Q6HR SUBQ 09/03/18 00:00 10/02/18 20:59 09/08/18 12:22 Lactulose (Cephulac) 20 gm DAILYPRN PRN ORAL constipation 09/02/18 20:45 10/02/18 20:44 Meropenem 500 mg/ Sodium Chloride 55 ml @ 110 mls/hr Q24H IVPB 09/03/18 21:00 09/13/18 20:59 09/07/18 21:58 Midodrine (Pro-Amatine) 10 mg THREE TIMES A DAY ORAL 09/02/18 20:45 10/02/18 20:44 09/08/18 12:29 Sodium Phosphate (Fleet's Sodium Phosl Enema) 133 ml DAILYPRN PRN RECTAL constipation 09/02/18 20:45 10/02/18 20:44 Vitamin B Complex/ Vit C/Folic Acid (Nephrovite) 1 tab DAILY ORAL 09/03/18 09:00 10/03/18 08:59 09/08/18 09:01 Devika Gaitan M.D. Sep 08, 2018 14:11
--- NOTE | 2018-09-08 15:49 | NUR ---
*-* DISCHARGE PLANNED *-* PATIENT IS DISCHARGED BACK TO: [facility] ROOM# 27-B ASSISTED T: [phone] FOR NURSE TO NURSE REPORT [facility] HAS BEEN ARRANGED FOR [employer] SPECIALIST [address] *-* SON RALPH CARABALLO HAS BEEN NOTIFIED OF FATHERS DISCHARGE AND IS IN AGREEMENT *-*
--- NOTE | 2018-09-08 17:46 | Hematology/Onc Progress Note ---
Assessment/Plan Assessment/Plan ASSESSMENT AND RECOMMENDATIONS # Leukocytosis/elevated white blood cell count, unspecified likely related to underlying stress reaction, smoking v more likely infection --> have reviewed peripheral smear and bandemia/neutrophilia noted --> continue antibiotics if they have been started by ID team --> monitor for resolution --> wbc trend: 16--> 11k-->10.8 # Anemia of chronic disease due to underlying chronic medical issues, multifactorial very likely due to CKD --> Anemia workup has been reviewed. Ferritin 1631 --> No evidence of hemolysis is noted, peripheral smear has been reviewed. --> Hgb goal >7. Transfuse prn. --> Epogen or iron at this time is not particularly indicated --> Medications have been reviewed --> stool OB++ --> bone marrow biopsy is not indicated given the other more likely causes --> hgb trend: 9.9-->10-->10.3 # Left sided AVF Malfuntion --> per vascular # Chronic encephalopathy. # End-stage renal disease. Nephro is following, appreciate recs. --> on hemodialysis. # Hypertension. # Diabetes. # GI and DVT prophylaxis. # Hypertension. The time the note is entered does not reflect the time the patient was examined. I greatly appreciate the consultation. Subjective Allergies: Coded Allergies: No Known Allergies (Unverified , 04/14/16) Subjective 09/06: Pt in bed noted with involuntary muscle twitching and body movement noted. H/H stable. Blood cx ++. Stool OB++ 09/08: Pt stable. DC planning Objective Objective Last 24 Hour Vital Signs Date Time Temp Pulse Resp B/P (MAP) Pulse Ox O2 Delivery O2 Flow Rate FiO2 09/08/18 13:40 99 T-Piece 8.0 30 09/08/18 12:00 98.5 95 20 111/68 (82) 100 09/08/18 09:00 T-piece 9.0 09/08/18 08:02 100 T-Piece 8.0 30 09/08/18 08:00 98.8 93 22 108/66 (80) 100 09/08/18 04:00 97.2 79 20 129/67 (87) 96 09/08/18 01:00 97 T-Piece 8.0 30 09/08/18 00:00 98.2 89 19 126/72 (90) 96 09/07/18 21:00 T-piece 9.0 09/07/18 20:00 97.9 88 19 108/80 (89) 98 09/07/18 20:00 96 T-Piece 8.0 30 09/07/18 16:00 98.2 88 18 123/74 (90) 98 09/07/18 13:07 97 T-Piece 8.0 30 09/07/18 12:00 98.3 92 18 126/69 (88) 99 09/07/18 09:00 T-piece 8.0 09/07/18 08:00 98.0 89 17 118/66 (83) 98 09/07/18 07:00 97 T-Piece 8.0 30 09/07/18 04:00 98.3 98 15 98/69 (79) 99 09/07/18 01:12 99 T-Piece 8.0 30 09/07/18 00:00 98.2 87 15 113/64 (80) 97 09/06/18 21:00 T-piece 8.0 09/06/18 20:00 98.9 79 15 108/60 (76) 100 09/06/18 19:31 98 T-Piece 8.0 30 Intake and Output 09/07/18 09/08/18 19:00 07:00 Intake Total 40 ml 635 ml Balance 40 ml 635 ml Intake Free Water 180 ml IV Total 55 ml Tube Feeding 40 ml 400 ml # Voids 2 # Bowel Movements 2 Labs Test 09/05/18 18:32 09/06/18 06:30 09/07/18 07:11 White Blood Count 12.4 K/UL (4.8-10.8) 10.8 K/UL (4.8-10.8) Red Blood Count 3.29 M/UL (4.70-6.10) 3.28 M/UL (4.70-6.10) Hemoglobin 10.1 G/DL (14.2-18.0) 10.3 G/DL (14.2-18.0) Hematocrit 30.2 % (42.0-52.0) 31.8 % (42.0-52.0) Mean Corpuscular Volume 92 FL (80-99) 97 FL (80-99) Mean Corpuscular Hemoglobin 30.6 PG (27.0-31.0) 31.4 PG (27.0-31.0) Mean Corpuscular Hemoglobin Concent 33.3 G/DL (32.0-36.0) 32.4 G/DL (32.0-36.0) Red Cell Distribution Width 19.4 % (11.6-14.8) 20.1 % (11.6-14.8) Platelet Count 401 K/UL (150-450) 394 K/UL (150-450) Mean Platelet Volume 5.9 FL (6.5-10.1) 6.4 FL (6.5-10.1) Neutrophils (%) (Auto) 61.7 % (45.0-75.0) 59.8 % (45.0-75.0) Lymphocytes (%) (Auto) 25.1 % (20.0-45.0) 22.1 % (20.0-45.0) Monocytes (%) (Auto) 6.8 % (1.0-10.0) 9.7 % (1.0-10.0) Eosinophils (%) (Auto) 4.5 % (0.0-3.0) 6.9 % (0.0-3.0) Basophils (%) (Auto) 1.8 % (0.0-2.0) 1.5 % (0.0-2.0) Sodium Level 143 MMOL/L (136-145) Potassium Level 3.3 MMOL/L (3.5-5.1) Chloride Level 100 MMOL/L (98-107) Carbon Dioxide Level 27 MMOL/L (21-32) Anion Gap 16 mmol/L (5-15) Blood Urea Nitrogen 49 mg/dL (7-18) Creatinine 5.6 MG/DL (0.55-1.30) Estimat Glomerular Filtration Rate 10.2 mL/min (>60) Glucose Level 135 MG/DL (74-106) Calcium Level 10.1 MG/DL (8.5-10.1) Phosphorus Level 5.2 MG/DL (2.5-4.9) Magnesium Level 2.5 MG/DL (1.8-2.4) Total Bilirubin 0.5 MG/DL (0.2-1.0) Aspartate Amino Transf (AST/SGOT) 21 U/L (15-37) Alanine Aminotransferase (ALT/SGPT) 23 U/L (12-78) Alkaline Phosphatase 200 U/L (46-116) C-Reactive Protein, Quantitative 6.0 mg/dL (0.00-0.90) Total Protein 9.4 G/DL (6.4-8.2) Total Protein (PEP) 8.6 g/dL (6.0-8.5) Albumin 3.2 G/DL (3.4-5.0) Albumin (PEP) 3.8 g/dL (2.9-4.4) Globulin 6.2 g/dL Globulin (PEP) 4.8 g/dL (2.2-3.9) Albumin/Globulin Ratio 0.8 (0.7-1.7) Bfmcg-3-Apmfedpmt 0.3 g/dL (0.0-0.4) Yjpcg-5-Dqrkmzova 1.0 g/dL (0.4-1.0) Beta Globulins 1.1 g/dL (0.7-1.3) Beta Gamma Globulin 2.4 g/dL (0.4-1.8) PEP Abnormal Protein Bands Not observed g/dL (Not Protein Electrophoresis Interpret Comment (.) Random Vancomycin Level 14.8 ug/mL Height (Feet): 5 Height (Inches): 5.00 Weight (Pounds): 116 Objective Physical Exam GENERAL: NAD VITALS: Have been reviewed HEAD AND NECK: Trach in place , on T-bar , Atraumatic and normocephalic. CHEST: Diffuse bronchial breathing sounds. HEART: S1 and S2. Regular rate and rhythm. ABDOMEN: Soft. No organomegaly, GT++ NEUROLOGY: Awake, alert and oriented x1. MS: Left arm AVF-well dressed , diffuse atrophied musculature Frederick Jones MD Sep 08, 2018 17:46
--- NOTE | 2018-09-08 17:51 | NUR ---
NURSE NOTES: Patient discharged to [facility] via ambulance. Patient has no belongings. Report given to Leland at facility. Discharge instructions given to ambulance personnel. Patient stable for discharge.
--- NOTE | 2018-09-10 12:21 | Discharge Summary ---
Discharge Summary Discharge Summary _ DATE OF ADMISSION: 09/02/2018 DATE OF DISCHARGE: 09/08/2018 DISCHARGED BY: Dr. Olivarez REASON FOR ADMISSION: 68 years old male with past medical history of chronic respiratory failure , tracheostomy status, hypertension, diabetes mellitus, end-stage renal disease , on hemodialysis, history of CVA, dementia, [facility] Patient apparently went to dialysis earlier and was unable to get dialysis via existing AV fistula. Patient was sent for revision of the shunt. Patient also had existing Perma catheter , unclear for how long. Upon evaluation vital signs were stable. No fevers. Pulse oximetry was 99% on 5 L of oxygen via trach collar. Laboratory work-up revealed leukocytosis WBC 18.9, hemoglobin 9.5, hematocrit 27.8. BUN 60, creatinine 4.3, consistent with known history of end-stage renal disease. Stable LFT. Patient subsequently admitted with AV shunt malfunction and leukocytosis. CONSULTANTS: ID specialist Dr Gaitan GI specialist Dr. Nixon tech ed/woodshop teacher/oncologist Dr. Jones surgery Dr. Salmon vascular surgeon [facility] COURSE: Patient admitted to medical surgical floor. Vascular surgeon followed. Patient started on empiric antibiotic as per ID specialist. Patient undergone on 09/04 left arm fistulogram with MUCK BOSS and removal of Perma- catheter Hemodialysis provided as per oyster shucker via current functional fistula with close monitoring of volumes , renal parameters and electrolytes. Electrolytes further corrected as needed. Blood cultures initially revealed Staphylococci hominis . Culture of catheter tip was negative. Blood culture on 09/04 , 09/05 and 09/06 were all negative. Urine culture revealed E. coli ESBL Klebsiella and Klebsiella pneumonia Carbapenem resistant. Per ID specialist, leukocytosis was most likely due to old hemodialysis catheter infection . He doubted pneumonia , since no real infiltrates were seen on x-ray , no tracheal secretions. Tracheal culture only grew colonizer. Tracheostomy care provided. Pulmonary toilet provided as needed. Patient clinically improved on meropenem . ID specialist suspected that Klebsiella pneumonia Carbapenem resistant was most likely a colonizer , and no need to treat at this time. Leukocytosis resolved , no fevers. ID specialist recommended to continue meropenem for 2 weeks after the first negative blood culture. Remarketing Rep followed. Hemoglobin and hematocrit were closely monitored with goal to keep hemoglobin above 7. Prior to discharge hemoglobin 10.3 , hematocrit 31.8. No need for transfusion. Per tech ed/woodshop teacher , anemia of chronic disease was due to underlying chronic medical issues, multifactorial , in this case very likely due to chronic kidney disease. No evidence of hemolysis noted. Stool for occult blood was positive. Hepatitis B surface antigen was negative. Anemia work-up was consistent with anemia of chronic disease. Ferritin 161. Lipid panel stable. Patient started on midodrine and blood pressure stabilized. TSH within normal limits. Venous duplex bilateral lower extremity revealed no evidence of acute DVT. . General surgeon follow-up for present on admission decubitus ulcer right ischium. Ischial pressure ulcer was healing . Continue current wound care at the facility. Pain management was addressed. Supportive care provided. Bowel regimen instituted. Blood sugar was managed with sliding scale of insulin. GI prophylaxis provided. Patient clinically stabilized and was ready for transfer back to jail facility for continuation of care. FINAL DIAGNOSES: Sepsis probably due to Perma-cath Left-sided AV fistula malfunction s/p left arm fistulogram with MUCK BOSS; removal of PermCath Leukocytosis-resolved UTI/E coli ESBL Severe anemia of chronic kidney disease. End-stage renal disease , on hemodialysis Chronic encephalopathy Hypertension Diabetes Decubitus of right ischial area, present on admission. DISCHARGE MEDICATIONS: See Medication Reconciliation list. DISCHARGE INSTRUCTIONS: [facility] was [facility] to the jail facility. Follow up with medical doctor at the facility. I have been assigned to dictate discharge summary for this account. I was not involved in the patient's management. Michelle Strong NP Sep 10, 2018 12:21
--- NOTE | 2018-09-10 12:40 | Diagnostic Imaging Report ---
APPROVED REPORT CPT Code: 27700 Present Symptoms Comments: Screening BILATERAL: Imaging reveals a patent deep venous system bilaterally. There is no evidence of thrombus within the femoral, popliteal or tibial segments. The greater saphenous veins are also within normal limits. Doppler indicates normal spontaneous flow within these segments.
--- NOTE | 2018-09-21 23:45 | Operative Note - Dictated ---
DATE OF OPERATION: 09/04/2018 PREOPERATIVE DIAGNOSES: 1. Nonfunctioning dialysis arteriovenous fistula in the left upper extremity. 2. Infected dialysis tunneled catheter. 3. End-stage renal disease. POSTOPERATIVE DIAGNOSES: 1. Nonfunctioning dialysis arteriovenous fistula in the left upper extremity. 2. Infected dialysis tunneled catheter. 3. End-stage renal disease as well as findings below. PROCEDURES: 1. Left arterialized basilic vein dialysis arteriovenous fistula access and introducer sheath placement in the venous outflow direction. 2. Catheterization via AV fistula with the catheter tip in the left innominate vein. 3. Left arm dialysis fistulogram. 4. Selective superior vena cavogram. 5. Percutaneous transluminal balloon angioplasty of the AV fistula ([place] 7 mm x 8 cm). 6. TEACHING DIETITIAN of the left subclavian vein ([place] 12 mm x 4 cm). 7. TEACHING DIETITIAN of the left innominate vein ([place] 12 mm x 4 cm). 8. Primary surgical repair of the arterialized left arm AV fistula access site. 9. Removal of the tunneled dialysis catheter (PermCath) from the right chest. 10. Intraoperative ultrasound. 11. Digital subtraction angiography. 12. Supervision and interpretation of angiogram and intervention. SURGEON: Shine Good M.D. ANESTHESIA: . ANESTHESIOLOGIST: . INDICATION: The patient was admitted with leukocytosis, likely secondary to an infected dialysis catheter. He has a patent AV fistula in the left arm; however, a duplex scan suggested some stenosis and therefore a fistulogram was recommended prior to removal of the dialysis catheter. INTRAOPERATIVE FINDINGS/INTERPRETATION OF THE RESULTS: The inflow from the arterial anastomosis is widely patent. The outflow vein is patent except in the proximal upper arm due to moderate stenosis and then flow into the subclavian vein is patent; however, there is mild to moderate stenosis at its junction. The innominate vein is otherwise patent draining into the patent superior vena cava. The existing dialysis catheter via right internal jugular vein is noted with the catheter tip at the atrial-caval junction. After intervention with a balloon catheter just above the completion angiogram showed satisfactory results with treated segments now widely patent with brisk flow of contrast from the AV fistula into the central veins on the completion angiogram. There was a good thrill present in the AV fistula at the end of the procedure. The AV fistula will be accessed for dialysis and therefore the old catheter was removed as described below without difficulty and the tip sent for culture and sensitivity. PROCEDURE IN DETAIL: With the patient in supine position and after the left arm as well as the right neck and upper chest areas were prepped and draped in usual sterile fashion. Skin was infiltrated with local anesthetic and AV fistula accessed with a micropuncture needle. Using a single wall puncture modified Seldinger technique, the wire was advanced into the vessel and the needle removed. Over the wire, the micropuncture introducer sheath and dilator were placed coaxially over the wire into the vessel and the wire and dilator removed with good arterial back bleeding noted through the sheath. The sheath was flushed with heparinized saline and then serial boluses of contrast were administered for digital subtraction images of the AV fistula inflow, outflow, and the above findings were noted. The sheath was exchanged over wire for a 5-[place] regular sheath and once the wire was placed across the stenosis to be treated, the balloon catheter was used to treat the corresponding segments in a standard fashion. The completion angiogram was then performed showing satisfactory results and therefore the sheath was removed and the puncture sites repaired with the primary suture of 5-0 Prolene with good hemostasis obtained. Sterile dressings were placed. The existing catheter was then removed after infiltration of the skin with local anesthetic and the catheter sutures were cut off and removed and the subcutaneous cuff of the catheter released using blunt and sharp dissection through the catheter exit site in the chest allowing the entire catheter to be removed from the subcutaneous tunnel. The tip of the catheter was cut off and sent for culture and sensitivity. Manual compression was maintained for hemostasis and pressure dressing was applied. The patient tolerated procedure well and was transferred out of the room in stable condition. ESTIMATED BLOOD LOSS: Minimal. COMPLICATIONS: None. DRAINS: None. SPECIMEN: Tunneled catheter tip for culture and sensitivity. TOTAL FLUOROSCOPY TIME: 2 minutes and 51 seconds. TOTAL CONTRAST: . Shine Good M.D. DR: FLORENCIO JOB#: [id number] CC: Hever Olivarez M.D.; Fax#: [phone] Austyn Tiwari M.D.; FAX#: [phone]
== END 2018-09-08 17:43 | DRG 252 ==
LOC: EDBD 14:24 → EDBEDREQ 14:34 → EMR 14:49 → 4E 15:12 → EDBEDREQ 15:13 → 4E 17:24
PROC: 05743ZZ Dilation of Left Innominate Vein, Percutaneous Approach (ICD-10-PCS; principal; 2018-09-04 13:00)
PROC: 057Y3ZZ Dilation of Upper Vein, Percutaneous Approach (ICD-10-PCS; principal; 2018-09-04 13:00)
PROC: 05763ZZ Dilation of Left Subclavian Vein, Percutaneous Approach (ICD-10-PCS; principal; 2018-09-04 13:00)
PROC: 05PYX3Z Removal of Infusion Device from Upper Vein, External Approach (ICD-10-PCS; principal; 2018-09-04 13:00)
PROC: 0JPTXXZ Removal of Tunneled Vascular Access Device from Trunk Subcutaneous Tissue and Fascia, External Approach (ICD-10-PCS; principal; 2018-09-04 13:00)
DX: T80.211A Bloodstream infection due to central venous catheter, initial encounter (principal); N18.6 End stage renal disease; A41.9 Sepsis, unspecified organism; T82.510A Breakdown (mechanical) of surgically created arteriovenous fistula, initial encounter; I12.0 Hypertensive chronic kidney disease with stage 5 chronic kidney disease or end stage renal disease; G93.40 Encephalopathy, unspecified; N39.0 Urinary tract infection, site not specified; E11.22 Type 2 diabetes mellitus with diabetic chronic kidney disease; Y84.1 Kidney dialysis as the cause of abnormal reaction of the patient, or of later complication, without mention of misadventure at the time of the procedure; Z86.73 Personal history of transient ischemic attack (TIA), and cerebral infarction without residual deficits; R13.10 Dysphagia, unspecified; Z79.82 Long term (current) use of aspirin; Z79.4 Long term (current) use of insulin; Z99.2 Dependence on renal dialysis; D63.1 Anemia in chronic kidney disease; L89.319 Pressure ulcer of right buttock, unspecified stage; E86.0 Dehydration; E11.65 Type 2 diabetes mellitus with hyperglycemia; Z43.0 Encounter for attention to tracheostomy; B96.20 Unspecified Escherichia coli [E. coli] as the cause of diseases classified elsewhere; Z16.12 Extended spectrum beta lactamase (ESBL) resistance
CPT/HCPCS: 36415; 71045; 76000; 80048; 80053; 80061; 80170; 80202; 81001; 82270; 82550; 82607; 82728; 82746; 82962; 82977; 83036; 83540; 83550; 83735; 83880; 84100; 84165; 84443; 84484; 84550; 85007; 85025; 85610; 85730; 86140; 86706; 87040; 87070; 87081; 87086; 87181; 87205; 93970; 94003; 94150; 94664; 99285; J1815; J8499